=== PATIENT | female | born 1975 | race Caucasian/White ===

== ENCOUNTER 2022-04-06 10:45 | Outpatient (CLI) | payer OTHER, SELFPAY ==
[2022-04-06 11:36] LABS: Hemoglobin A1C* 6.5 % (0-5.6)
[2022-04-06 11:52] LABS: Basophils Absolute Auto 0.05 K/uL (0.00-0.30); Basophils Percent Auto 0.8 % (0.0-3.0); Eosinophils Absolute Auto 0.15 K/uL (0.00-0.50); Eosinophils Percent Auto 2.4 % (0.0-7.0); Hematocrit 39.5 % (33.0-51.0); Hemoglobin* 13.3 gm/dL (12.0-16.0); Lymphocytes Percent Auto 49.2 % (20-44); Mean Corpuscular HGB Conc 34 gm/dL (32-36); Mean Corpuscular Hemoglobin 33 pg (26-34); Mean Corpuscular Volume 98 fL (80-100); Monocytes Absolute Auto 0.35 K/UL (0.00-0.90); Monocytes Percent Auto 5.6 % (0.0-11.0); Neutrophils Absolute Auto 2.61 K/uL (1.7-7.0); Platelet Count* 245 K/uL (140-440); Red Blood Count 4.03 m/uL (4.00-5.20); Slide Review Reflex No; White Blood Count* 6.22 K/uL (4.50-11.00)
[2022-04-06 21:49] LABS: Chloride* 103 mmol/L (96-114); Sodium* 138 mmol/L (135-149)
[2022-04-06 21:50] LABS: Potassium* 3.8 mmol/L (3.6-5.1)
[2022-04-06 21:52] LABS: Alkaline Phosphatase* 51 U/L (40-150); Aspartate Amino Transferase* 27 U/L (12-35); Bilirubin Total* 1.3 mg/dL (0.1-1.5); Blood Urea Nitrogen* 21 mg/dL (5-24); Carbon Dioxide* 25 mmol/L (20-32); Estimated Glomerular Filt Rate 71 ml/min; Total Protein* 6.7 g/dL (6.0-8.3)
[2022-04-06 21:53] LABS: Alanine Aminotransferase* 39 U/L (4-35); Calcium* 9.1 mg/dL (8.4-10.6); Glucose* 132 mg/dL (60-115)
== END 2022-04-06 10:46 | disposition home or self-care (01) ==
LOC: LKVREF 10:47
PROVIDERS: PCP Family Medicine; Visit Provider Family Medicine
DX: B36.0 Pityriasis versicolor (principal); E11.9 Type 2 diabetes mellitus without complications; Z79.899 Other long term (current) drug therapy
CPT/HCPCS: 80053; 83036; 85025

== ENCOUNTER 2022-04-14 03:22 | Emergency (ER) | payer OTHER, SELFPAY ==
[2022-04-14 03:31] VITALS: BP 144/93; PULSE 79; RESP 16; TEMP 36.2; O2SAT 98
[2022-04-14 04:36] LABS: Appearance Urine Clear (Clear); Bilirubin Urine Negative (Negative); Blood Urine Negative (Negative); Color Urine Yellow (Yellow); Glucose Urine Negative (Negative); Ketones Urine Negative (Negative); Leukocyte Esterase Urine Negative (Negative); Nitrite Urine Negative (Negative); Protein Urine Negative (Negative); Specific Gravity Urine 1.015 (1.000-1.030); Urobilinogen Urine 0.2 (0.2-1.0); pH Urine 6.5 (5.0-8.5)
[2022-04-14 04:42] LABS: RBC Urine 0-2 (0-2); WBC Urine 0-2 (0-5)
[2022-04-14] MEDS: MORPHINE 4 MG/ML INJ IVP (04:56)
[2022-04-14] MEDS: KETOROLAC 30 MG/ML inj IVP (04:56)
[2022-04-14] MEDS: ONDANSETRON 2 MG/ML inj 4 MG IVP (04:56)
[2022-04-14] MEDS: 0.9 % SODIUM CHLORIDE 1000 ml 1,000 ML IV (04:59)
[2022-04-14 05:04] LABS: Basophils Absolute Auto 0.04 K/uL (0.00-0.30); Basophils Percent Auto 0.7 % (0.0-3.0); Eosinophils Absolute Auto 0.18 K/uL (0.00-0.50); Eosinophils Percent Auto 2.9 % (0.0-7.0); Hematocrit 37.8 % (33.0-51.0); Immature Granulocytes Abs Auto 0.03 K/uL (0.00-0.30); Lymphocytes Percent Auto 51.1 % (20-44); Mean Corpuscular HGB Conc 34 gm/dL (32-36); Mean Corpuscular Hemoglobin 33 pg (26-34); Mean Corpuscular Volume 96 fL (80-100); Monocytes Percent Auto 7.2 % (0.0-11.0); Neutrophils Percent Auto 37.6 % (42.0-72.0); Platelet Count* 286 K/uL (140-440); Red Blood Count 3.93 m/uL (4.00-5.20); White Blood Count* 6.12 K/uL (4.50-11.00)
[2022-04-14 05:05] LABS: Slide Review Reflex No
[2022-04-14 05:12] LABS: Albumin* 4.1 g/dL (3.3-5.0)
[2022-04-14 05:13] LABS: Chloride* 103 mmol/L (96-114); Potassium* 3.6 mmol/L (3.6-5.1); Sodium* 138 mmol/L (135-149)
[2022-04-14 05:15] LABS: Alkaline Phosphatase* 66 U/L (40-150); Aspartate Amino Transferase* 30 U/L (12-35); Bilirubin Direct* 0.2 mg/dL (0.0-0.5); Bilirubin Total* 0.4 mg/dL (0.1-1.5); Total Protein* 6.5 g/dL (6.0-8.3)
[2022-04-14 05:15] LABS: HCG Qualitative* Negative (Negative)
[2022-04-14 05:16] LABS: Alanine Aminotransferase* 35 U/L (4-35); Lipase* 212 U/L (23-300)
[2022-04-14 05:16] LABS: Creatinine* 0.9 mg/dL (0.5-1.5); Estimated Glomerular Filt Rate 81 ml/min
[2022-04-14 05:17] LABS: Blood Urea Nitrogen* 14 mg/dL (5-24); Calcium* 8.7 mg/dL (8.4-10.6); Carbon Dioxide* 26 mmol/L (20-32); Glucose* 124 mg/dL (60-115)
[2022-04-14 05:20] LABS: C Reactive Protein* < 0.5 mg/dL (0.5-1.0)
[2022-04-14 05:33] LABS: SARS PCR* Negative SARS-CoV-2 (Negative)
[2022-04-14 07:04] VITALS: BP 134/92; PULSE 85; RESP 16; O2SAT 98
--- NOTE | 2022-04-14 07:06 | ED.ABDPAIN ---
HPI - Abdominal Pain General Chief Complaint: Abdominal Pain Stated Complaint: Right Side Abdominal Pain Time Seen by Provider: 04/14/22 04:06 History of Present Illness HPI narrative: 46-year-old woman presenting to the emergency department with complaint of a deep pain in her right upper abdomen, aching into her back. This began yesterday evening after a meal at [employer] of a burger and fries. She has not had any fever. She is nauseated. I do not believe she has been vomiting. No diarrhea noted. She thinks that this might be her gallbladder. No fever. No trauma. Pain is intense and is just not settling down. She recalls remarking to friend just the other day that she has been pain-free for about a year she thought. No cough cold symptoms, shortness of breath, chest pain. Further conversation and review of records shows that had an abdominal ultrasound showed fatty liver and a mildly prominent bile duct in October of 2020. Follow-up HIDA scan was apparently was normal the following November. In 2016 abdominal ultrasound did show some biliary sludge. Related Data Home Medications Medication Instructions Recorded Confirmed adalimumab 40 mg/0.4 mL 40 mg subcut QWEEK 04/03/22 04/03/22 subcutaneous pen kit aripiprazole 5 mg tablet 5 mg PO DAILY 04/03/22 04/03/22 bupropion HCl 150 mg tablet,12 hr mg PO BID 04/03/22 04/03/22 sustained-release diclofenac sodium 1 % topical gel 1 topical PRN 04/03/22 04/03/22 methylphenidate HCl 10 mg tablet 15 mg PO .as needed PRN 04/03/22 04/03/22 methylphenidate HCl 54 mg 54 mg PO DAILY 04/03/22 04/03/22 tablet,extended release 24 hr metoprolol succinate 50 mg mg PO DAILY 04/03/22 04/03/22 tablet,extended release 24 hr spironolactone 50 mg tablet 50 mg PO BID 04/03/22 04/03/22 venlafaxine 150 mg 150 mg PO DAILY 04/03/22 04/03/22 capsule,extended release 24 hr blood sugar diagnostic (Accu-Chek #10 ea 04/06/22 04/06/22 Guide test strips) diclofenac sodium 50 mg mg PO DAILY 04/06/22 04/06/22 tablet,delayed release folic acid 1 mg tablet 1 mg PO DAILY 04/06/22 04/06/22 methotrexate sodium 2.5 mg tablet 15 mg PO .1 x week 04/06/22 04/06/22 prednisone 10 mg tablet 10 mg PO QDAY 04/06/22 04/06/22 ruxolitinib 1.5 % topical cream 1.5 applic topical DAILY PRN 04/06/22 04/03/22 Previous Rx's Medication Instructions Recorded metformin 500 mg tablet,extended 1,000 mg PO DAILY #180 tabs 04/06/22 release 24 hr nystatin 100,000 unit/gram topical 1 applic topical BID #60 grams 04/06/22 powder terbinafine HCl 250 mg tablet 250 mg PO QDAY 2 weeks #14 tabs 04/06/22 Allergies Allergy/AdvReac Type Severity Reaction Status Date / Time hydrocodone AdvReac Mild Itching Verified 04/06/22 10:27 Lavender oil Allergy Unknown Uncoded 04/06/22 10:27 Review of Systems Status of ROS Reports: 10 or more systems reviewed and unremarkable except as noted in History and below [facility] Medical History Encounter for annual physical exam High risk medication use History of gestational diabetes mellitus (GDM) Surgical History Status post dilation and curettage Status post endometrial ablation (09/29/14) Status post hemorrhoidectomy (2013) Family History Other Breast cancer Social History Smoking Status: Never smoker How often do you have six or more drinks on one occasion: Less than monthly AUDIT-C Alcohol total score: 1 Non-prescribed substance use: denies use service: No Exam Narrative: Exam Narrative: And pleasant. Clearly uncomfortable. Right hand, both hands held that right upper abdomen. Cranial nerves 2-12 look to be intact Breathing easily. Lungs are clear. Cardiovascular with regular rate and rhythm no murmurs rubs or gallops are appreciated Abdomen overweight with normoactive bowel sounds soft and moderately tender to palpation in the right upper quadrant underneath the rib margin. No pain to percussion of the flanks. No peritoneal signs. Moving all extremities without difficulty. Well perfused peripherally. A little dependent edema in the lower legs. Const: Vital Signs, click to edit/add: Vital Signs - 24 hr 04/14/22 03:31 04/14/22 07:04 Temperature 97.2 F L Pulse Rate [Left P ulse Oximeter] 79 85 Respiratory Rate 16 16 Blood Pressure [Ri ght Upper Arm] 144/93 H 134/92 H Pulse Oximetry 98 98 Oxygen Delivery Me thod Room Air Room Air Documenting provider has reviewed patient's vital signs: yes Course Course Hospital Course: She would appreciate some relief of this pain and nausea. Appears that Ms. Sr is anticipating admission at this point. Reevaluation(s) Reevaluation #1: A little sleepy from medications. The pain is resolved. Resting comfortably. Vital Signs Vital signs: Initial Vital Signs Temperature 97.2 F L 04/14/22 03:31 Temperature Source Temporal Artery Scan 04/14/22 03:31 Pulse Rate 79 04/14/22 03:31 Pulse Rhythm 04/14/22 03:31 Respiratory Rate 16 04/14/22 03:31 Blood Pressure 144/93 H 04/14/22 03:31 Blood Pressure Mean 110 04/14/22 03:31 Pulse Oximetry 98 04/14/22 03:31 Oxygen Delivery Method 04/14/22 03:31 Vital Signs Temperature 97.2 F L 04/14/22 03:31 Pulse Rate 79 04/14/22 03:31 Respiratory Rate 16 04/14/22 03:31 Blood Pressure 144/93 H 04/14/22 03:31 Pulse Oximetry 98 04/14/22 03:31 Oxygen Delivery Method 04/14/22 03:31 Temperature 97.2 F L 04/14/22 03:31 Pulse Rate 85 04/14/22 07:04 Respiratory Rate 16 04/14/22 07:04 Blood Pressure 134/92 H 04/14/22 07:04 Pulse Oximetry 98 04/14/22 07:04 Oxygen Delivery Method 04/14/22 07:04 MDM - Abdominal Pain MDM Narrative Medical decision making narrative: I discussed treating pain. It appears that she would like sooner than later relief. Given morphine ketorolac and Zofran as well as fluids. Labs collected as well. White count and chemistries including liver panel are relatively unremarkable. Urinalysis clear. Overall pain has been controlled. Would appear that this could be managed outpatient. I do think this is still biliary colic in spite of rather unremarkable ultrasounds and normal HIDA scan. I do not think that further imaging available here tonight would be further useful. I think would benefit from having some opiate level pain medications available as well as a consultation with General surgery which apparently has not yet happened per her report. Will be resting here for medications to fade in sedative affect as well as seeing whether not there be recurrence in the short term her pain. Medical Records Attestation: I reviewed the patient's medical records. Lab Data Attestation: I reviewed the patient's lab results. Labs: Lab Results 04/14/22 04/14/22 04/14/22 Range/Units 04:20 04:50 04:50 WBC 6.12 (4.50-11.00) K/uL RBC 3.93 L (4.00-5.20) m/uL Hgb 13.0 (12.0-16.0) gm/dL Hct 37.8 (33.0-51.0) % MCV 96 (80-100) fL MCH 33 (26-34) pg MCHC 34 (32-36) gm/dL RDW Coeff of [place] 13.0 (11.5-15.5) % Plt Count 286 (140-440) K/uL Neut % (Auto) 37.6 L (42.0-72.0) % Lymph % (Auto) 51.1 H (20-44) % [place] % (Auto) 7.2 (0.0-11.0) % Eos % (Auto) 2.9 (0.0-7.0) % Baso % (Auto) 0.7 (0.0-3.0) % Neut # (Auto) 2.30 (1.7-7.0) K/uL Lymph # (Auto) 3.10 H (0.90-2.90) K/uL [place] # (Auto) 0.40 (0.00-0.90) K/UL Eos # (Auto) 0.18 (0.00-0.50) K/uL Baso # (Auto) 0.04 (0.00-0.30) K/uL Abs Immat Gran (auto) 0.03 (0.00-0.30) K/uL Sodium (135-149) mmol/L Potassium (3.6-5.1) mmol/L Chloride (96-114) mmol/L Carbon Dioxide (20-32) mmol/L BUN (5-24) mg/dL Creatinine (0.5-1.5) mg/dL Estimated GFR ml/min Glucose (60-115) mg/dL Calcium (8.4-10.6) mg/dL Total Bilirubin (0.1-1.5) mg/dL Direct Bilirubin (0.0-0.5) mg/dL AST (12-35) U/L ALT (4-35) U/L Alkaline Phosphatase (40-150) U/L C-Reactive Protein (0.5-1.0) mg/dL Total Protein (6.0-8.3) g/dL Albumin (3.3-5.0) g/dL Lipase (23-300) U/L HCG, Qual Negative (Negative) Urine Color Yellow (Yellow) Urine Appearance Clear (Clear) Urine pH 6.5 (5.0-8.5) Ur Specific [place] 1.015 (1.000-1.030) Urine Protein Negative (Negative) Urine Glucose (UA) Negative (Negative) Urine Ketones Negative (Negative) Urine Blood Negative (Negative) Urine Nitrite Negative (Negative) Urine Bilirubin Negative (Negative) Urine Urobilinogen 0.2 (0.2-1.0) Ur Leukocyte Esterase Negative (Negative) Urine RBC 0-2 (0-2) Urine WBC 0-2 (0-5) Ur Squamous Epith Cells None (None-Few) Urine Bacteria None (None) SARS-CoV-2 (PCR) (Negative) 04/14/22 04/14/22 04/14/22 Range/Units 04:50 04:50 04:53 WBC (4.50-11.00) K/uL RBC (4.00-5.20) m/uL Hgb (12.0-16.0) gm/dL Hct (33.0-51.0) % MCV (80-100) fL MCH (26-34) pg MCHC (32-36) gm/dL RDW Coeff of Claudette (11.5-15.5) % Plt Count (140-440) K/uL Neut % (Auto) (42.0-72.0) % Lymph % (Auto) (20-44) % [place] % (Auto) (0.0-11.0) % Eos % (Auto) (0.0-7.0) % Baso % (Auto) (0.0-3.0) % Neut # (Auto) (1.7-7.0) K/uL Lymph # (Auto) (0.90-2.90) K/uL [place] # (Auto) (0.00-0.90) K/UL Eos # (Auto) (0.00-0.50) K/uL Baso # (Auto) (0.00-0.30) K/uL Abs Immat Gran (auto) (0.00-0.30) K/uL Sodium 138 (135-149) mmol/L Potassium 3.6 (3.6-5.1) mmol/L Chloride 103 (96-114) mmol/L Carbon Dioxide 26 (20-32) mmol/L BUN 14 (5-24) mg/dL Creatinine 0.9 (0.5-1.5) mg/dL Estimated GFR 81 ml/min Glucose 124 H (60-115) mg/dL Calcium 8.7 (8.4-10.6) mg/dL Total Bilirubin 0.4 (0.1-1.5) mg/dL Direct Bilirubin 0.2 (0.0-0.5) mg/dL AST 30 (12-35) U/L ALT 35 (4-35) U/L Alkaline Phosphatase 66 (40-150) U/L C-Reactive Protein < 0.5 L (0.5-1.0) mg/dL Total Protein 6.5 (6.0-8.3) g/dL Albumin 4.1 (3.3-5.0) g/dL Lipase 212 (23-300) U/L HCG, Qual (Negative) Urine Color (Yellow) Urine Appearance (Clear) Urine pH (5.0-8.5) Ur Specific [place] (1.000-1.030) Urine Protein (Negative) Urine Glucose (UA) (Negative) Urine Ketones (Negative) Urine Blood (Negative) Urine Nitrite (Negative) Urine Bilirubin (Negative) Urine Urobilinogen (0.2-1.0) Ur Leukocyte Esterase (Negative) Urine RBC (0-2) Urine WBC (0-5) Ur Squamous Epith Cells (None-Few) Urine Bacteria (None) SARS-CoV-2 (PCR) Negative SARS-CoV-2 (Negative) Discharge Plan Discharge Clinical Impression: Biliary colic Patient Disposition: Home, Self-Care Condition: Improved Additional Instructions: Stay well hydrated. Avoid greasy/fatty foods is they might trigger this discomfort/pain. Please call to General surgery to schedule follow-up appointment/consultation. Return/be seen for marked increasing uncontrolled pain, repeated vomiting, associated fever, pain not resolving a couple of hours after taking your pain medications. Regino and Michael from [employer]. Prescriptions: No Action aripiprazole 5 mg tablet 5 mg PO DAILY methylphenidate HCl 54 mg tablet extended release 24hr 54 mg PO DAILY venlafaxine 150 mg capsule,extended release 24hr 150 mg PO DAILY methylphenidate HCl 10 mg tablet 15 mg PO .as needed PRN metoprolol succinate 50 mg tablet extended release 24 hr PO DAILY spironolactone 50 mg tablet 50 mg PO BID adalimumab 40 mg/0.4 mL pen injector kit 40 mg subcut QWEEK bupropion HCl 150 mg tablet sustained-release 12 hr PO BID diclofenac sodium 1 % gel 1 topical PRN diclofenac sodium 50 mg tablet,delayed release (DR/EC) PO DAILY ruxolitinib 1.5 % cream 1.5 applic topical DAILY PRN prednisone 10 mg tablet 10 mg PO QDAY methotrexate sodium 2.5 mg tablet 15 mg PO .1 x week folic acid 1 mg tablet 1 mg PO DAILY (DME) Accu-Chek Guide test strips Strip See Rx Instructions .ROUTE .MEDSUPPLY Qty: 10 Label Comments: TEST FOUR TIMES DAILY Rx Instructions: As directed nystatin 100,000 unit/gram powder 1 applic topical BID Qty: 60 8RF terbinafine HCl 250 mg tablet 250 mg PO QDAY 14 Days Qty: 14 1RF metformin 500 mg tablet extended release 24 hr 1,000 mg PO DAILY Qty: 180 1RF Follow Up/Referrals: Luis Ambriz MD [Primary Care Provider] - Stand Alone Forms: [facility] Info Instructions
--- NOTE | 2022-04-14 07:07 | ED.NURSE ---
report received from ko. dc teaching complete, questions answered. pt recieved instymeds for ana and fred pt waiting for to pick her up. SL dc'd intact.
== END 2022-04-14 07:21 | disposition home or self-care (01) ==
PROVIDERS: Emergency Provider Family Medicine; PCP Family Medicine
DX: K80.51 Calculus of bile duct without cholangitis or cholecystitis with obstruction (principal)
CPT/HCPCS: 36415; 80048; 80076; 81001; 83690; 84703; 85025; 86140; 87635; 96374; 96375; 99284; J1885; J2270; J2405; J7030

== ENCOUNTER 2022-05-07 06:10 | Emergency (ER) | payer OTHER, SELFPAY ==
[2022-05-07 06:24] VITALS: BP 144/79; PULSE 77; RESP 20; TEMP 36.5; O2SAT 98; BMI 41.3
--- NOTE | 2022-05-07 07:03 | ED.ABDPAIN ---
HPI - Abdominal Pain General Chief Complaint: Abdominal Pain Stated Complaint: Bad gallbladder pain Time Seen by Provider: 05/07/22 06:56 History of Present Illness HPI narrative: 46-year-old woman history of biliary colic presents with 2 hours of right upper quadrant abdominal pain. She had been recommended for general surgery follow-up but she had missed the follow-up phone call while driving. She did have chili last night. Took 1 tab of [place] which has not touched the pain. No fever. Nausea but no vomiting. Related Data Home Medications Medication Instructions Recorded Confirmed adalimumab 40 mg/0.4 mL 40 mg subcut QWEEK 04/03/22 05/07/22 subcutaneous pen kit aripiprazole 5 mg tablet 5 mg PO DAILY 04/03/22 05/07/22 bupropion HCl 150 mg tablet,12 hr 150 mg PO BID 04/03/22 05/07/22 sustained-release diclofenac sodium 1 % topical gel 1 topical PRN 04/03/22 04/03/22 methylphenidate HCl 10 mg tablet 15 mg PO .as needed PRN 04/03/22 04/03/22 methylphenidate HCl 54 mg 54 mg PO DAILY 04/03/22 04/03/22 tablet,extended release 24 hr metoprolol succinate 50 mg 50 mg PO DAILY 04/03/22 05/07/22 tablet,extended release 24 hr spironolactone 50 mg tablet 50 mg PO BID 04/03/22 04/03/22 venlafaxine 150 mg 150 mg PO DAILY 04/03/22 04/03/22 capsule,extended release 24 hr blood sugar diagnostic (Accu-Chek #10 ea 04/06/22 04/06/22 Guide test strips) diclofenac sodium 50 mg 50 mg PO DAILY 04/06/22 05/07/22 tablet,delayed release folic acid 1 mg tablet 1 mg PO DAILY 04/06/22 05/07/22 methotrexate sodium 2.5 mg tablet 15 mg PO .1 x week 04/06/22 05/07/22 prednisone 10 mg tablet 10 mg PO QDAY 04/06/22 04/06/22 ruxolitinib 1.5 % topical cream 1.5 applic topical DAILY PRN 04/06/22 04/03/22 Previous Rx's Medication Instructions Recorded metformin 500 mg tablet,extended 1,000 mg PO DAILY #180 tabs 04/06/22 release 24 hr nystatin 100,000 unit/gram topical 1 applic topical BID #60 grams 04/06/22 powder terbinafine HCl 250 mg tablet 250 mg PO QDAY 2 weeks #14 tabs 04/06/22 Allergies Allergy/AdvReac Type Severity Reaction Status Date / Time hydrocodone AdvReac Mild Itching Verified 04/06/22 10:27 Lavender oil Allergy Unknown Uncoded 04/06/22 10:27 Review of Systems Status of ROS Reports: 6 or more systems reviewed and unremarkable except as noted in History and below [facility] Medical History Encounter for annual physical exam High risk medication use History of gestational diabetes mellitus (GDM) Surgical History Status post dilation and curettage Status post endometrial ablation (09/29/14) Status post hemorrhoidectomy (2013) Family History Other Breast cancer Social History Smoking Status: Never smoker How often do you have six or more drinks on one occasion: Less than monthly AUDIT-C Alcohol total score: 1 Non-prescribed substance use: denies use service: No Exam Narrative: Exam Narrative: Is pleasant. Purplish dyed hair. Clearly uncomfortable. Slightly labored breathing. Skin is warm and dry. Lungs appear to be clear. CV with regular rate Abdomen overweight, soft and quite tender in the right upper quadrant. Extremities are well perfused without edema. Const: Vital Signs, click to edit/add: Vital Signs - 24 hr 05/07/22 06:24 Temperature 97.7 F Pulse Rate [Pulse Oximeter] 77 Respiratory Rate 20 Blood Pressure [Ri ght Upper Arm] 144/79 H Pulse Oximetry 98 Oxygen Delivery Me thod Room Air Documenting provider has reviewed patient's vital signs: yes Course Course Hospital Course: I discussed options of IV and laboratory evaluation and more, but in process of shared decision making we decided to try oral pain med trial. Does not have a fever. Given 2 tabs of 5/325 Percocet and Zofran. Reevaluation(s) Reevaluation #1: Markedly improved. Only a small amount of discomfort remains. Feels she can go home and follow-up outpatient. Time: 07:55 Vital Signs Vital signs: Initial Vital Signs Temperature 97.7 F 05/07/22 06:24 Temperature Source Temporal Artery Scan 05/07/22 06:24 Pulse Rate 77 05/07/22 06:24 Respiratory Rate 20 05/07/22 06:24 Blood Pressure 144/79 H 05/07/22 06:24 Blood Pressure Mean 100 05/07/22 06:24 Blood Pressure Position Sitting 05/07/22 06:24 Pulse Oximetry 98 05/07/22 06:24 Oxygen Delivery Method 05/07/22 06:24 Vital Signs Temperature 97.7 F 05/07/22 06:24 Pulse Rate 77 05/07/22 06:24 Respiratory Rate 20 05/07/22 06:24 Blood Pressure 144/79 H 05/07/22 06:24 Pulse Oximetry 98 05/07/22 06:24 Oxygen Delivery Method 05/07/22 06:24 Temperature 97.7 F 05/07/22 06:24 Pulse Rate 77 05/07/22 06:24 Respiratory Rate 20 05/07/22 06:24 Blood Pressure 144/79 H 05/07/22 06:24 Pulse Oximetry 98 05/07/22 06:24 Oxygen Delivery Method 05/07/22 06:24 Discharge Plan Discharge Clinical Impression: Abdominal pain, Biliary colic Patient Disposition: Home w/ Parent or Adult Condition: Improved Additional Instructions: Yes. Please follow-up with General surgery. I am happy you are feeling better now. Stay well-hydrated. Please avoid those greasy triggering foods. Return if pain escalating and you can not get it under control, repeated vomiting, associated fever. Prescriptions: No Action aripiprazole 5 mg tablet 5 mg PO DAILY methylphenidate HCl 54 mg tablet extended release 24hr 54 mg PO DAILY venlafaxine 150 mg capsule,extended release 24hr 150 mg PO DAILY methylphenidate HCl 10 mg tablet 15 mg PO .as needed PRN metoprolol succinate 50 mg tablet extended release 24 hr 50 mg PO DAILY spironolactone 50 mg tablet 50 mg PO BID adalimumab 40 mg/0.4 mL pen injector kit 40 mg subcut QWEEK bupropion HCl 150 mg tablet sustained-release 12 hr 150 mg PO BID diclofenac sodium 1 % gel 1 topical PRN diclofenac sodium 50 mg tablet,delayed release (DR/EC) 50 mg PO DAILY ruxolitinib 1.5 % cream 1.5 applic topical DAILY PRN prednisone 10 mg tablet 10 mg PO QDAY methotrexate sodium 2.5 mg tablet 15 mg PO .1 x week folic acid 1 mg tablet 1 mg PO DAILY (DME) Accu-Chek Guide test strips Strip See Rx Instructions .ROUTE .MEDSUPPLY Qty: 10 Label Comments: TEST FOUR TIMES DAILY Rx Instructions: As directed nystatin 100,000 unit/gram powder 1 applic topical BID Qty: 60 8RF terbinafine HCl 250 mg tablet 250 mg PO QDAY 14 Days Qty: 14 1RF metformin 500 mg tablet extended release 24 hr 1,000 mg PO DAILY Qty: 180 1RF Follow Up/Referrals: Luis Ambriz MD [Primary Care Provider] - Stand Alone [facility]
[2022-05-07] MEDS: OxyCODONE/APAP 5-325 TABLET 2 TAB PO (07:19)
[2022-05-07] MEDS: ONDANSETRON ODT 4 MG TAB PO (07:19)
--- NOTE | 2022-05-07 07:25 | ED.NURSE ---
report received, care taken over. pt sitting up on edge of bed. c/o RUQ pain 02/12.
--- NOTE | 2022-05-07 08:16 | ED.NURSE ---
dc teaching complete, pt denies pain or nausea. waiting for to pick her up.
== END 2022-05-07 08:32 | disposition home or self-care (01) ==
PROVIDERS: Emergency Provider Family Medicine; PCP Family Medicine
DX: K80.50 Calculus of bile duct without cholangitis or cholecystitis without obstruction (principal)
CPT/HCPCS: 99283; A9270

== ENCOUNTER 2022-06-06 10:42 | Outpatient (CLI) | payer OTHER, SELFPAY | END 2022-06-06 10:43 | disposition home or self-care (01) | LOC: OP CLINIC 10:43 | PROVIDERS: PCP Family Medicine; Visit Provider Surgery | DX: R10.13 Epigastric pain (principal); K31.89 Other diseases of stomach and duodenum | CPT/HCPCS: 43239; 88305; J2250; J3010 ==

== ENCOUNTER 2022-06-28 20:36 | Emergency (ER) | payer OTHER, SELFPAY ==
[2022-06-28 21:02] VITALS: BP 145/82; PULSE 130; RESP 18; TEMP 36.3; O2SAT 99; BMI 43.4
--- NOTE | 2022-06-28 21:17 | ED.GENADULT ---
HPI - General Adult General Chief complaint: Unspecified Complaint, Adult Stated complaint: Cellulitis in Left Ear Time Seen by Provider: 06/28/22 20:46 History of Present Illness HPI narrative: This patient comes in with pain in swelling with redness in the left external ear. She has had symptoms like this in the past that was treated successfully for a cellulitis. She does have some eczema that bothers her and she has been picking at this area a and understands that this may be putting her at risk for these symptoms. She does not report any fevers. She is concerned that her roommate has MRSA. She has not this kind of infection herself. She states that her doctor thinks she should have a sulfa drug to treat this because of that proximity of relationship with her roommate. Related Data Home Medications Medication Instructions Recorded Confirmed adalimumab 40 mg/0.4 mL 40 mg subcut QWEEK 04/03/22 05/26/22 subcutaneous pen kit aripiprazole 5 mg tablet 5 mg PO DAILY 04/03/22 05/26/22 bupropion HCl 150 mg tablet,12 hr 150 mg PO BID 04/03/22 05/26/22 sustained-release diclofenac sodium 1 % topical gel 1 topical PRN 04/03/22 05/26/22 methylphenidate HCl 10 mg tablet 15 mg PO .as needed PRN 04/03/22 05/26/22 methylphenidate HCl 54 mg 54 mg PO DAILY 04/03/22 05/26/22 tablet,extended release 24 hr metoprolol succinate 50 mg 50 mg PO DAILY 04/03/22 05/26/22 tablet,extended release 24 hr spironolactone 50 mg tablet 50 mg PO BID 04/03/22 05/26/22 venlafaxine 150 mg 150 mg PO DAILY 04/03/22 05/26/22 capsule,extended release 24 hr blood sugar diagnostic (Accu-Chek #10 ea 04/06/22 05/26/22 Guide test strips) diclofenac sodium 50 mg 50 mg PO DAILY 04/06/22 05/26/22 tablet,delayed release folic acid 1 mg tablet 1 mg PO DAILY 04/06/22 05/26/22 methotrexate sodium 2.5 mg tablet 15 mg PO .1 x week 04/06/22 05/26/22 ruxolitinib 1.5 % topical cream 1.5 applic topical DAILY PRN 04/06/22 05/26/22 Previous Rx's Medication Instructions Recorded metformin 500 mg tablet,extended 1,000 mg PO DAILY #180 tabs 04/06/22 release 24 hr nystatin 100,000 unit/gram topical 1 applic topical BID #60 grams 04/06/22 powder terbinafine HCl 250 mg tablet 250 mg PO QDAY 2 weeks #14 tabs 04/06/22 Allergies Allergy/AdvReac Type Severity Reaction Status Date / Time hydrocodone AdvReac Mild Itching Verified 06/28/22 21:09 Lavender oil Allergy Unknown Uncoded 05/26/22 09:44 Review of Systems Status of ROS: Reports: 10 or more systems reviewed and unremarkable except as noted in History and below Narrative: Constitutional: No fevers, no weight gain or loss. Eyes: No discharge. No vision changes. HENT: No congestion, no sore throat. Pain with redness and mild swelling in the left external ear. Cardiovascular: No chest pain, no palpitations. Respiratory: No shortness of breath, no wheezes, no cough. Gastrointestinal: No abdominal pain, no vomiting, no diarrhea. Genitourinary: No dysuria, no hematuria. Musculoskeletal: Normal range of motion. Skin: No rashes, no pruritis. Neurological: No dizziness, weakness, sensory change, speech change. Endo/Heme/Allergies: No bruising or bleeding. No polydipsia. Pysch: no suicidality, no anxiety, no insomnia. All other systems reviewed and are negative. [facility] Medical History Encounter for annual physical exam High risk medication use History of gestational diabetes mellitus (GDM) Surgical History Status post dilation and curettage Status post endometrial ablation (09/29/14) Status post hemorrhoidectomy (2013) Family History Other Breast cancer Social History Smoking Status: Never smoker How often do you have six or more drinks on one occasion: Less than monthly AUDIT-C Alcohol total score: 1 Non-prescribed substance use: denies use service: No Exam Narrative: Exam Narrative: Constitutional: Well-developed, well-nourished, no acute distress. HEENT: Normocephalic, atraumatic. Tympanic membranes appear normal bilaterally. The left external ear is tender to touch and shows some increased warmth and erythema suggestive of infection. There is no sign of abscess or drainage. Neck: Normal range of motion. Nontender. Supple. Heart: Regular. No murmurs. Normal rate. Intact distal pulses. Lungs: Clear to auscultation. No chest discomfort. No wheezes, rhonchi, or rales. Abdomen: Normal bowel sounds. Nontender. No rebound tenderness. Genitalia: Deferred. Back: No midline tenderness. Normal range of motion. Extremities: Normal range of motion. No injury. Skin: Intact. No rash. Warm. No erythema or pallor. Neurologic: No altered sensation. No weakness. Alert and oriented. Psychiatric: No suicidality. No anxiety or depression. No insomnia. Nursing notes and vitals signs are reviewed. Const: Vital Signs, click to edit/add: Vital Signs - 24 hr 06/28/22 21:02 Temperature 97.3 F L Pulse Rate [Pulse Oximeter] 130 H Respiratory Rate 18 Blood Pressure [Ri ght Forearm] 145/82 H Pulse Oximetry 99 Oxygen Delivery Me thod Room Air Course Vital Signs Vital signs: Initial Vital Signs Temperature 97.3 F L 06/28/22 21:02 Temperature Source Temporal Artery Scan 06/28/22 21:02 Pulse Rate 130 H 06/28/22 21:02 Respiratory Rate 18 06/28/22 21:02 Blood Pressure 145/82 H 06/28/22 21:02 Blood Pressure Mean 103 06/28/22 21:02 Blood Pressure Position Sitting 06/28/22 21:02 Pulse Oximetry 99 06/28/22 21:02 Oxygen Delivery Method 06/28/22 21:02 Vital Signs Temperature 97.3 F L 06/28/22 21:02 Pulse Rate 130 H 06/28/22 21:02 Respiratory Rate 18 06/28/22 21:02 Blood Pressure 145/82 H 06/28/22 21:02 Pulse Oximetry 99 06/28/22 21:02 Oxygen Delivery Method 06/28/22 21:02 Temperature 97.3 F L 06/28/22 21:02 Pulse Rate 130 H 06/28/22 21:02 Respiratory Rate 18 06/28/22 21:02 Blood Pressure 145/82 H 06/28/22 21:02 Pulse Oximetry 99 06/28/22 21:02 Oxygen Delivery Method 06/28/22 21:02 Medical Decision Making MDM Narrative Medical decision making narrative: This patient has an area of eczema that she has been picking at involving the left ear and now there is some increased redness that may be is result of a cellulitis. The patient did receive a prescription for Septra from the [facility]. She is advised to follow-up with her primary physician. Discharge Plan Discharge Clinical Impression: Cellulitis Patient Disposition: Home, Self-Care Condition: Unchanged Additional Instructions: Take medication as prescribed. Follow up with MD or return if worsening. Prescriptions: No Action aripiprazole 5 mg tablet 5 mg PO DAILY methylphenidate HCl 54 mg tablet extended release 24hr 54 mg PO DAILY venlafaxine 150 mg capsule,extended release 24hr 150 mg PO DAILY methylphenidate HCl 10 mg tablet 15 mg PO .as needed PRN metoprolol succinate 50 mg tablet extended release 24 hr 50 mg PO DAILY spironolactone 50 mg tablet 50 mg PO BID adalimumab 40 mg/0.4 mL pen injector kit 40 mg subcut QWEEK bupropion HCl 150 mg tablet sustained-release 12 hr 150 mg PO BID diclofenac sodium 1 % gel 1 topical PRN diclofenac sodium 50 mg tablet,delayed release (DR/EC) 50 mg PO DAILY ruxolitinib 1.5 % cream 1.5 applic topical DAILY PRN methotrexate sodium 2.5 mg tablet 15 mg PO .1 x week folic acid 1 mg tablet 1 mg PO DAILY (DME) Accu-Chek Guide test strips Strip See Rx Instructions .ROUTE .MEDSUPPLY Qty: 10 Label Comments: TEST FOUR TIMES DAILY Rx Instructions: As directed nystatin 100,000 unit/gram powder 1 applic topical BID Qty: 60 8RF terbinafine HCl 250 mg tablet 250 mg PO QDAY 14 Days Qty: 14 1RF metformin 500 mg tablet extended release 24 hr 1,000 mg PO DAILY Qty: 180 1RF Follow Up/Referrals: Luis Ambriz MD [Primary Care Provider] - Stand Alone Forms: [facility] Info Instructions
== END 2022-06-28 21:32 | disposition home or self-care (01) ==
PROVIDERS: Emergency Provider Emergency Medicine Emergency Medical Services; PCP Family Medicine
DX: L03.211 Cellulitis of face (principal)
CPT/HCPCS: 99282; 99284

== ENCOUNTER 2022-06-30 11:04 | Inpatient (IN) | payer OTHER, SELFPAY ==
[2022-06-30 11:08] VITALS: PULSE 84; RESP 16; TEMP 35.9; O2SAT 99; BMI 43.6
[2022-06-30 12:26] VITALS: BP 137/80; PULSE 81; RESP 18; O2SAT 97
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
--- OUTSIDE RECORDS SUMMARY | 2022-06-30 12:47 | XMS_ITS | Encounter Summary ---
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 traveled to part of her face. Roommate has hx of MRSA and she is concerned about if she has that too. ) HISTORY OF PRESENT ILLNESS Amelia Sr is 46-year-old female patient with history of hidradenitis suppurativa on Humira, uveitison methotrexate, and eczema who presents with worsening right ear swelling, pain, and redness. She was seen in [facility] care yesterday for right ear swelling and itchiness, worked up for cellulitis and e xternal ear infection, and discharged home with bactrim and cyclosporin ear drops. Unfortunately, since yesterday, the swelling and redness spread towards the right cheek, behind the right ear, and down the right neck. She reports congestion and pressure of the right head, right-sided sore throat, andmuffled hearing from the right ear. She has taken 3 doses of Bactrim so far. Of note, she has a roommate who has history of chronic MRSA infections and hospitalizations. Denies ear drainage, fever, chills, headache, difficulty chewing or talking, inability to open jaw, shortness of breath, exacerbating factors. 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 HENT: Positive for congestion, ear pain (right), hearing loss (muffled from right ear) and sore throat (right). Negative for mouth sores. Eyes: Negative for pain, noy-orbital edema and visual disturbance. Respiratory: Negative for shortness of breath. Cardiovascular: Negative for chest pain. Gastrointestinal: Negative for abdominal pain, nausea and vomiting. Musculoskeletal: Positive for neck pain (right). Skin: Negative for rash and wound. Neurological: Negative for dizziness, speech difficulty and light-headedness. Psychiatric/Behavioral: Negative for confusion. OBJECTIVE Initial Vitals [05/13/22 1634] Temperature Pulse Rate Heart Rate Resp Rate Blood Pressure SpO2 36 ??C 81 -- 18 135/86 99 % Pain Score 0 - No pain PHYSICAL EXAMINATION Constitutional: Nursing note and vitals reviewed. Vital signs are normal. She appears not lethargic.She does not appear ill. No distress. HENT: Head: Normocephalic. Tenderness (anterior to right ear) present. No signs of injury. There is normal jaw occlusion. Jaw: There is tenderness (right-sided posterior jaw) over the right jaw. Right Ear: Tympanic membrane, external ear and ear canal normal. No lacerations. There is swelling and tenderness. No foreign bodies. Mouth/Throat: Uvula is midline and oropharynx is clear and moist. Mucous membranes are moist. No tonsillar exudate. Dental: Good dentition and good dentition. Eyes: Conjunctivae and EOM are normal. Pupils are equal, round, and reactive to light. Neck: Neck supple. Neck adenopathy present. Pulmonary/Chest: Effort normal and breath sounds normal. No respiratory distress. Musculoskeletal: Cervical back: Normal range of motion and neck supple. Muscular tenderness (over right sternocleidomastoid) present. Lymphadenopathy: She has cervical adenopathy. Neurological: Alert and oriented to person, place, and time. She is not disoriented. Skin: She is not diaphoretic. Recent Results (from the past 24 hour(s)) Lactate, baseline Collection Time: 05/13/22 5:38 PM Result Value Lactate, P 1.4 CBC with Differential, Blood Collection Time: 05/13/22 5:38 PM Result Value Hemoglobin 12.7 Hematocrit 37.7 Erythrocytes 3.82 (L) MCV 98.7 (H) RBC Distrib Width 12.4 Platelet Count 296 Leukocytes 6.6 Neutrophils 3.15 Lymphocytes 2.75 Monocytes 0.57 Eosinophils 0.12 Basophils 0.04 Basic Metabolic Panel Collection Time: 05/13/22 5:38 PM Result Value Potassium, P 4.3 Sodium, P 138 Chloride, P 101 Bicarbonate, P 26 Anion Gap, P 11 BUN (Blood Urea Nitrogen), P 14 Creatinine 1.09 (H) Estimated GFR (eGFR) 64 Calcium, Total, P 9.6 Glucose, P 123 05/13/22 CT Neck Soft Tissue with IV Contrast IMPRESSION: 1. No evidence for deep space infection as questioned. 2. Findings suggest possible otitis externa. Correlate clinically. 3. Right auricular and periauricular soft tissue thickening and inflammatory stranding suggesting cellulitis. No evidence for abscess. 4. Presumed reactive right cervical lymphadenopathy. ASSESSMENT/PLAN IMPRESSION AND PLAN Amelia Sr is 46-year-old female patient with history of hidradenitis suppurative on Humira, uveitison methotrexate, and eczema who presents with worsening right ear swelling, pain, and redness spreading anterior to the ear and down neck since yesterday after starting bactrim and cyclosporin ear drops. Due to worsening symptoms, there is concern for spreading infection especially in the setting of her chronic immunosuppression and household MRSA exposure. Will obtain basic labs, start intravenous Vancomycin antibiotics, and assess area with CT neck to ensure no deep space neck infection. Patient is from out of town and worsened since yesterday on PO antibiotics, and can benefit from hospitalization for further management. 185 Spoke with hospitalist Jennifer regarding admission for IV antibiotics and observation. They proposed discharge with PO Vancomycin after her intravenous antibiotics. We discussed reaching out to ENT for their recommendations. 1917 Consulted with ENT regarding possible oral antibiotics. They will call back. DIFFERENTIAL DIAGNOSIS Cellulitis, abscess, mastoiditis, otitis media. I reviewed previous medical records including lab results and radiology images/report. Mecca Stephens 05/13/221914 Mecca Stephens 05/13/221919 documented in this encounter Plan of Treatment Not on filedocumented as of this encounter Procedures Procedure Name Priority Date/Time Associated Comments [...] CDT procedure are in the results section. CBC WITH STAT 05/13/2022 5:38 Results for this DIFFERENTIAL, B PM CDT procedure ar e in the results section. LACTATE, B/P STAT 05/13/2022 5:38 Results for this PM CDT procedure are i n the results section. BASIC METABOLIC STAT 05/13/2022 5:38 Results f or this PANEL, S/P PM CDT procedure are i n the results section. BACTERIA / ALCIRA STAT 05/13/2022 5:22 Result s for this CULTURE, BLOOD PM CDT procedure are in the results section. documented in this encounter Results Glucose, POCT (05/14/2022 11:40 AM CDT) athologist Signature Glucose, POCT, 104 70 - 140 05/14/2022 [facility] B mg/dL 11:40 AM CDT Specimen Anatomical Collection Method Collection Time Receive d Time (Source) Location / / Volume Laterality Blood 05/14/2022 11:40 05/14/2022 AM CDT 12:19 PM CDT Generic Rals LAB POCT ORDERABLES-MANUAL Performing Organization Address City/[facility] Code Phon e Number [facility]- [address] [place] [address] [place] [facility] [place] [facility] - [address] Glucose, POCT (05/14/2022 6:30 AM CDT) athologist Signature Glucose, POCT, 89 70 - 140 05/14/2022 [facility] B mg/dL 6:30 AM CDT Specimen Anatomical Collection Method Collection Time Receive d Time (Source) Location / / Volume Laterality Blood 05/14/2022 6:30 AM 6:47 CDT AM CDT Generic [facility] LAB POCT ORDERABLES-MANUAL Performing Organization Address City/[facility] Phon e Number [facility]- [address] [place] [address] [facility] [facility] - [address] (ABNORMAL) CBC with Differential, Blood (05/14/2022 5:31 AM CDT) [facility] gist Method Time Signature Hemoglobin 11.7 [...] Laterality Blood (Blood, 05/14/2022 5:31 AM 05/14/20 22 6:19 Venous) CDT AM CDT Baltazar Bowden M.D. LAB BLOOD ADD-ON Performing Organization Address City/State/ZIP Code Phon e Number [facility]- [address] [place] [address] [facility] [place], [place] [id number] [place] [address] Basic Metabolic Panel (05/14/2022 5:31 AM CDT) athologist Signature Potassium, P 3.9 3.6 - [...] Organization Address City/State/ZIP Code Phon e Number [facility]- [address] [place] [address] [facility] [facility] [place], [place] [id number] [place] [address] MRSA PCR, Nasal (05/13/2022 10:47 PM CDT) athologist Signature MRSA Screen, Negative Negative 05/14/2022 [facility] Nasal by PCR 12:24 AM CDT Specimen Anatomical Collection Method Collection Time Receive d Time (Source) Location / / Volume Laterality Swab (Nares) 05/13/2022 10:47 05/13/2022 PM CDT 11:15 PM CDT Baltazar Bowden M.D. LAB MICROBIOLOGY - GENER AL ORDERABLES Performing Organization Address City/[facility]/ZIP Code Phon e Number [facility]- [address] [place] [address] [facility] [facility] - [address] Glucose, POCT (05/13/2022 10:23 PM CDT) P athologist Signature Glucose, POCT, 140 70 - 140 05/13/2022 [facility] B mg/dL 10:23 PM CDT Specimen Anatomical Collection Method Collection Time Receive d Time (Source) Location / / Volume Laterality Blood 05/13/2022 10:23 05/13/2022 PM CDT 11:01 PM CDT Generic [facility] LAB POCT ORDERABLES-MANUAL Performing Organization Address City/[facility]/ZIP Code Phon e Number [facility] [address] [place] [address] [facility] [place], [place] [id number] [place] [address] Lactate, 3 hour draw (05/13/2022 8:14 PM CDT) athologist Signature Lactate, P 0.9 0.5 - 2.2 05/13/2022 [facility] mmol/L 8:44 PM CDT Specimen Anatomical Collection Method Collection Time Receive d Time (Source) Location / / Volume Laterality Blood (Blood, 05/13/2022 8:14 PM 05/13/20 22 8:18 Venous) CDT PM CDT Brandt Heath M.D. LAB BLOOD NON ADD-ON Performing Organization Address City/[facility]/ZIP Code Phon e Number [facility]- [address] [place] [address] [facility] [place], [place] [id number] [place] [address] SARS Coronavirus 2, PCR, V Symptomatic (05/13/2022 6:39 PM CDT) [facility] Method Time Signature SARS-Coronavi Undetected Undetected 05/13/2022 [facility] anival-2, PCR 7:30 PM CDT Comment: SARS-CoV-2 RNA absent. ?? ----ADDITIONAL INFORMATION---- This RT-PCR test using the Xpert Xpress SARS-CoV-2/Flu/RSV assay ([employer] performed on the [employer] rt DX systems has received Emergency Use Authorization (EU A) by the U.S. Food and Drug Administration. Performanc e characteristics were verified by [facility] in a manner consistent with CLIA requirements . Fact sheets for this Emergency Use Autho rization (EUA) assay can be found at the following link s: For Healthcare Providers: https://www.fda.gov/media/696847/downloa d For Patients: https://www.fda.gov/media/957422/downloa d Specimen Source Swab, Nasopharynx 05/13/2022 6:47 PM CDT [facility] Specimen Anatomical Collection Method Collection Time Receive d Time (Source) Location / / Volume Laterality Swab 05/13/2022 6:39 PM 6:47 (Nasopharynx) CDT PM CDT Brandt Heath M.D. LAB MICROBIOLOGY - GENERAL O RDERABLES Performing Organization Address City/State/ZIP Code Phon e Number [facility]- [address] [place] [address] [facility] [facility] [place], [place] [id number] [place] [address] Neck Soft [...] Alcira Culture, Blood #2 (05/13/2022 5:39 PM CDT) Patholo gist Method Time Signature Bacteria/Tia No growth [...] Organization Address City/State/ZIP Code Phon e Number [facility]- [address] [place] [address] [facility] [facility] [place], [place] [id number] [place] [address] (ABNORMAL) Basic Metabolic Panel (05/13/2022 5:38 PM CDT) Analysis Performed At Patho logist Time Signature Potassium, P 4.3 3.6 - 5.2 05/13/2022 [facility] mmol/L 6:11 PM CDT Sodium, P 138 135 - 145 05/13/2022 [facility] mmol/L 6:11 PM CDT Chloride, P 101 98 - 107 05/13/2022 [facility] mmol/L 6:11 PM CDT Bicarbonate, P 26 22 - 29 05/13/2022 [facility] mmol/L 6:12 PM CDT Anion Gap, P 11 7 - 15 05/13/2022 [facility] 6:11 PM CDT BUN (Blood Urea 14 6 - 21 05/13/2022 [facility] Nitrogen), P mg/dL 6:12 PM CDT Creatinine 1.09 (H) 0.59 - 05/13/2022 [facility] 1.04 mg/dL 6:12 PM CDT Estimated GFR 64 >=60 05/13/2022 [facility] (eGFR) mL/min/BSA 6:12 PM CDT Comment: Estimated GFR calculated using the 2020 CKD_EPI creatinine equation. Calcium, Total, P 9.6 8.6 - 10.0 mg/dL 05/13/2022 6:12 PM CDT [facility] Glucose, P 123 70 - 140 mg/dL 05/13/2022 6:12 PM CDT A UST Specimen Anatomical Collection Method Collection Time Receive d Time (Source) Location / / Volume Laterality Blood (Blood, 05/13/2022 5:38 PM 05/13/20 5:45 Venous) CDT PM CDT Brandt Heath M.D. LAB BLOOD ADD-ON Performing Organization Address City/State/ZIP Code Phon e Number [facility]- [address] [place] [address] [facility] [place] [address] [facility] [address] (ABNORMAL) CBC with Differential, Blood (05/13/2022 5:38 PM CDT) [facility] gist Method Time Signature Hemoglobin 12.7 11.6 - 05/13/2022 [facility] 15.0 g/dL 6:01 PM CDT Hematocrit 37.7 35.5 - 05/13/2022 [facility] 44.9 % 6:01 PM CDT Erythrocytes 3.82 (L) 3.92 - 05/13/2022 [facility] 5.13 6:01 PM CDT x10(12)/L MCV 98.7 (H) 78.2 - 05/13/2022 [facility] 97.9 fL 6:01 PM CDT RBC Distrib Width 12.4 12.2 - 05/13/2022 [facility] 16.1 % 6:01 PM CDT Platelet Count 296 157 - 371 05/13/2022 [facility] x10(9)/L 6:01 PM CDT Leukocytes 6.6 3.4 - 9.6 05/13/2022 [facility] x10(9)/L 6:01 PM CDT Neutrophils 3.15 1.56 - 05/13/2022 [facility] 6.45 6:01 PM CDT x10(9)/L Lymphocytes 2.75 0.95 - 05/13/2022 [facility] 3.07 6:01 PM CDT x10(9)/L Monocytes 0.57 0.26 - 05/13/2022 [facility] 0.81 6:01 PM CDT x10(9)/L Eosinophils 0.12 0.03 - 05/13/2022 [facility] 0.48 6:01 PM CDT x10(9)/L Basophils 0.04 0.01 - 05/13/2022 [facility] 0.08 6:01 PM CDT x10(9)/L Specimen Anatomical Collection Method Collection Time Receive d Time (Source) Location / / Volume Laterality Blood (Blood, 05/13/2022 5:38 PM 05/13/20 5:45 Venous) CDT PM CDT Brandt Heath M.D. LAB BLOOD ADD-ON Performing Organization Address City/[facility]/ZIP [facility] Phon e Number [facility]- [address] [place] [address] [facility] [facility] - [address] Lactate, baseline (05/13/2022 5:38 PM CDT) P athologist Signature Lactate, P 1.4 0.5 - 2.2 05/13/2022 [facility] mmol/L 6:09 PM CDT Specimen Anatomical Collection Method Collection Time Receive d Time (Source) Location / / Volume Laterality Blood (Blood, 05/13/2022 5:38 PM 05/13/20 5:45 Venous) CDT PM CDT Brandt Heath M.D. LAB BLOOD NON ADD-ON Performing Organization Address City/[facility] Phon e Number [facility]- [address] [place] [address] [facility] [facility] - [address] Bacteria / Alcira Culture, Blood #1 (05/13/2022 5:22 PM CDT) Patholo gist Method Time Signature Bacteria/Tia No growth 05/18/2022 [facility] da Culture, after 5 6:07 PM CDT Blood day/s of incubation. Specimen (Source) Anatomical Collection Method Collection Time Re ceived Time Location / / Volume Laterality Blood (Blood, 05/13/2022 5:22 05/13/2022 5:43 Peripheral Draw) PM CDT PM CDT Comment: Specimen Source Site: Blood Brandt Heath M.D. LAB MICROBIOLOGY - GENERAL O RDERABLES Performing Organization Address City/[facility]/ZIP Code Phon e Number [facility]- [address] [place] [address] [facility] [address] documented in this encounter Visit Diagnoses Diagnosis Cellulitis - Primary Cellulitis Otitis Externa Acute Right Otitis Externa Acute Right documented in this encounter Admitting Diagnoses Diagnosis Cellulitis Otitis Externa Acute Right documented in this encounter Administered Medications Inactive Administered Medications - up to 3 most recent administrations Medication Order MAR Action Action Date Dose Rate Site ARIPiprazole tablet 5 mg (ABILIFY) Given 05/13/2022 11:39 PM CDT 5 mg 5 mg, oral, Daily, First dose on 05/13/22 at 2315 cefepime in D5W IVPB 2 g (MAXIPIME) New Bag 05/14/2022 8:26 AM CDT 2 g 100 mL/hr 2 g, intravenous, at 100 mL/hr, Administer over 30 Minutes, Every 12 hours, First dose on 05/13/22 at 2100, Duplex bag - activate before hanging. , Drug Monitoring Program: Pharmacist to adjust medication dosing based on indication and drug clearance factors., Indications: Skin and soft tissue infection New Bag 05/13/2022 10:21 PM CDT 2 g 100 mL/hr diphenhydrAMINE-zinc acetate 2 % Given 05/13/2022 11:39 PM CDT 1 application cream 1 application (BENADRYL ES) 1 application, topical, 4 times daily PRN, itching, Starting on 05/13/22 at 2251 enoxaparin injection 40 mg Given 05/14/2022 8:26 AM CDT 40 mg Left Lower Abdomen (LOVENOX) 40 mg, subcutaneous, Every 24 hours scheduled, First dose on 05/14/22 at 0900 folic acid tablet 1 mg Given 05/14/2022 8:26 AM CDT 1 mg 1 mg, oral, Daily, First dose on 05/14/22 at 0900 insulin aspart U-100 injection 0-7 Units (NovoLOG FlexPen) 0-7 Units, subcutaneous, 3 times daily, First dose on 05/14/22 at 0800, Insulin Scale: Mild Correction Scale, 180 - 219: 2 units, 220 - 259: 3 units, 260 - 299: 4 units, 300 - 339: 5 units, 340 - 379: 6 units, 380 - 3 99: 7 units, Greater than 399: Call service writing Insulin orders insulin aspart U-100 injection 0-7 Units (NovoLOG FlexPen) 0-7 Units, subcutaneous, Daily at bedtime, First dose on 05/13/22 at 2100, Insulin Scale: Modified Bedtime Correction Scale, 220- 259: 3 units, 260-299: 4 units, 300-339: 5 units, 340-379: 6 unit s, 380-399: 7 units, Greater than 399: Call service writing insulin orders iohexoL 300 mg iodine/mL solution 1-200 mL Given 05/13/2022 6:05 PM CDT 130 mL (OMNIPAQUE) 1-200 mL, intravenous, Once in imaging, contrast, Starting on 05/13/22 at 1740, For 1 dose methotrexate tablet 15 mg Given 05/14/2022 9:35 AM CDT 15 mg 15 mg, oral, Every 7 days, First dose on 05/14/22 at 0900, For 59 days methylphenidate HCl 24 hr tablet 54 mg Given 05/14/2022 9:35 AM CDT 54 mg (CONCERTA) 54 mg, oral, Daily, First dose on 05/14/22 at 0900, Swallow whole. Do NOT crush, chew, or split tablet. metoprolol succinate 24 hr tablet 50 mg Given 05/14/2022 8:26 AM CDT 50 mg (TOPROL-XL) 50 mg, oral, Daily, First dose on 05/14/22 at 0900, Do NOT crush or chew. Tablet may be split on score if needed. NaCl 0.9 % bolus 1,000 mL New Bag 05/13/2022 5:48 PM CDT 1,000 mL 1000 mL/hr 1,000 mL, intravenous, at 1,000 mL/hr, Administer over 1 Hours, Once, On 05/13/22 at 1706, For 1 dose NaCl 0.9% infusion New Bag 05/14/2022 8:31 AM CDT 100 mL/hr 100 mL/hr 100 mL/hr, intravenous, Continuous, Starting on 05/13/22 at 2100, For 12 hours New Bag 05/13/2022 10:21 PM CDT 100 mL/hr 100 mL/hr [id number] otic solution 2 drop Given 05/13 11:38 PM CDT 2 drops (CORTISPORIN) 2 drop, right ear, 3 times daily, First dose on 05/13/22 at 2315, For 6 days [id number] otic solution 2 drop Given 05/14/2022 8:31 AM CDT 2 drops (CORTISPORIN) 2 drop, right ear, 3 times daily, First dose (after last reorder) on 05/14/22 at 0900, For 6 days sodium chloride 0.9 % flush 1-500 mL Given 05/13/2022 6:05 PM CDT 60 mL 1-500 mL, intravenous, Once in imaging, line care, Starting on 05/13/22 at 1740, For 1 dose sodium chloride 0.9 % injection 10 mL Given 05/13/2022 6:04 PM CDT 10 mL 10 mL, intravenous, Once in imaging, line care, Starting on 05/13/22 at 1740, For 1 dose sodium chloride 0.9 % injection 2-10 mL 2-10 mL, intravenous, As needed, line care, Starting o n 05/13/22 at 1703 spironolactone tablet 50 mg (ALDACTONE) Given 05/14/2022 6:37 AM CDT 50 mg 50 mg, oral, 2 times daily, First dose on 05/14/22 at 0600 vancomycin 2,000 mg in NaCl 0.9% New Bag 05/13/2022 6:17 PM CD T 2,000 mg 260 mL/hr IVPB (VANCOCIN) 2,000 mg, intravenous, at 260 mL/hr, Administer over 120 Minutes, Once, On 05/13/22 at 1706, For 1 dose, Drug Monitoring Program: Pharmacist to adjust medication dosing based on indication and drug clearance factors., Indications: Skin and soft tissue infection venlafaxine XR 24 hr capsule 150 mg Given 05/14/2022 8:26 AM CDT 150 mg (EFFEXOR-XR) 150 mg, oral, Daily with breakfast, First dose on 05/14/22 at 0800, Swallow whole. Do NOT crush, chew or open capsule. documented in this encounter Active and Recently Administered Medications Times are shown in CDT. Scheduled Medication Order 05/12/2022 05/13/2022 05/14/2022 ARIPiprazole tablet 5 mg (ABILIFY) 6615 (Given - Provider: Jessie Wilhelm R.N.) 5 mg, oral, Daily, First dose on 05/13/22 at 2315 cefepime in D5W IVPB 2 g (MAXIPIME) 2221 (New Bag - Provider: Jessie Wilhelm R.N.) 0826 (New Bag - Provider: Meghna damon R.N.)0900 (Stopped - Provider: Meghna Elliott R.N.) 2 g, intravenous, at 100 mL/hr, Administ er over 30 Minutes, Every 12 hours, First dose on 05/13/22 at 2100, Duplex bag - activate before hanging. , Drug Monitoring Program: Pharmacist to adjust medic ation dosing based on indication and shaan g clearance factors., Indications: Skin and soft tissue infection enoxaparin injection 40 mg (LOVENOX) 08 (Given - Provider: Meghna Elliott R.N.) 40 mg, subcutaneous, Every 24 hours sche duled, First dose on [place] 05/14/22 at 0900 folic acid tablet 1 mg 08 (Giv en - Provider: Meghna Elliott R.N.) 1 mg, oral, Daily, First dose on [place] 05/14/22 at 0900 influenza quadrivalent (PF) (6 months & older) vaccine 0.5 mL (FLUZONE/FLUARIX) 0.5 mL, intramuscular, Once, On [facility] 05/13/22 at 0900, For 1 dose insulin aspart U-100 injection 0-7 Units (NovoLOG FlexPen) 0725 (Not Given - Provider: Meghna Elliott R.N. - Reason: Order parameters not met - Comment: bg [phone] (Not Given - Provider: Meghna Elliott R.N. - Reason: Order parameters not met - Comment: bg 103) 0-7 Units, subcutaneous, 3 times daily, First dose on [place] 05/14/22 at 0800, Insulin Scale: Mild Correction Scale, 180 - 219: 2 units, 220 - 259: 3 units, 260 - 299: 4 units, 300 - 339: 5 units, 340 - 379 : 6 units, 380 - 399: 7 units, Greater t guy 399: Call service writing Insulin orders insulin aspart U-100 injection 0-7 Units (NovoLOG FlexPen) 2225 (Not Given - Provider: Jessie J Choco, R.N. - Reason: Order parameters not met) 0-7 Units, subcutaneous, Daily at bedtim e, First dose on 05/13/22 at 2100, Insulin Scale: Modified Bedtime Correction Scale, 220-259: 3 units, 260-299: 4 units, 300-339: 5 units, 340-379: 6 units, 38 0-399: 7 units, Greater than 399: Call service writing insulin o rders methotrexate tablet 15 mg 0935 ( Given - Provider: Meghna Elliott R.N.) 15 mg, oral, Every 7 days, First dose on 05/14/22 at 0900, Fo r 59 days methylphenidate HCl 24 hr tablet 54 mg (CONCERTA) 35 (Given - Provider: Meghna Elliott R.N.) 54 mg, oral, Daily, First dose on Sun at 0900, Swallow whole. Do NOT crush, chew, or split tablet. metoprolol succinate 24 hr tablet 50 mg (TOPROL-XL) 08 (Given - Provider: Meghna Elliott R.N.) 50 mg, oral, Daily, First dose on Sun at 0900, Do NOT crush or chew. Tablet may be split on score if needed. NaCl 0.9 % bolus 1,000 mL (COMPLETED) 17 48 (New Bag - Provider: Joan Horowitz RHilda)1848 (Stopped - Provider: Joan Horowitz R.N.) 1,000 mL, intravenous, at 1,000 mL/hr, A dminister over 1 Hours, Once, On 05/13/22 at 1706, For 1 dose [id number] otic solution 2 drop (CORTISPORIN) (CA NCELED) 2338 (Given - Provider: Jessie Wilhelm R.N.) 2 drop, right ear, 3 times daily, First dose on Sat at 2315, For 6 days fsjsgmhf-[id number]-NO otic solution 2 drop (CORTISPORIN) 0831 (Given - Provider: Meghna Elliott R.N.) 2 drop, right ear, 3 times daily, First dose (after last reorder) on 05/14/22 at 0900, For 6 days spironolactone tablet 50 mg (ALDACTONE) 636 (Given - Provider: Jessie Wilhelm R.N.) 50 mg, oral, 2 times daily, First dose on 05/14/22 at 0600 vancomycin 2,000 mg in NaCl 0.9% IVPB (VANCOCIN) (COMPLETED) 1816 (New Bag - Provider: Ney Kebede R.N. - Comment: At CT and awaiting cultures)2027 (Stopped - Provider: Guilherme Pearson R.N.) 2,000 mg, intravenous, at 260 mL/hr, Adm inister over 120 Minutes, Once, On 05/13/22 at 1706, For 1 dose, Drug Monitoring Program: Pharmacist to adjust medication dosing based on indication and drug c learance factors., Indications: Skin and soft tissue infection venlafaxine XR 24 hr capsule 150 mg (EFFEXOR-XR) 825 (Given - Provider: Meghna Elliott R.N.) 150 mg, oral, Daily with breakfast, Firs t dose on 05/14/22 at 0800, Swallow whole. Do NOT crush, chew or open capsule. Continuous Medication Order 05/12/2022 05/13/2022 05/14/2022 NaCl 0.9% infusion 2221 (New Bag - Provider: Junie Wilhelm R.N.) 0831 (New Bag - Provider: Meghna Elliott R.N.)1232 (Stopped - Provider: Meghna Elliott R.N.) 100 mL/hr, intravenous, Continuous, Star ting on 05/13/22 at 2100, For 12 hours PRN Medication Order 05/12/2022 05/13/2022 05/14/2022 acetaminophen tablet 500 mg (TYLENOL) 500 mg, oral, Every 6 hours PRN, mild pa in or score 1-3 of 10, headaches, fever, Starting on 05/13/22 at 2043, Not to exceed 4 grams of acetaminophen in 24 hours all sources bisacodyL suppository 10 mg (DULCOLAX) 10 mg, rectal, Daily PRN, constipation, Starting on 05/13/22 at 2043, Ordered sequence of administration: polyethylene glycol, then bisacodyl until BM achieved. calcium carbonate chewable tablet 400 mg of calcium (TUMS) 400 mg of calcium, oral, Every 2 hour OH N, heartburn, indigestion, Starting on 05/13/22 at 204, Doses listed are in mg of elemental calcium. Take with food. 500 mg calcium carbonate contains 200 mg of elemental calcium. diphenhydrAMINE-zinc acetate 2 % cream 1 application (BENADR YL ES) 4127 (Given - Provider: Jessie Wilhelm R.N.) 1 application, topical, 4 times daily OH N, itching, Starting on 05/13/22 at 2251 iohexoL 300 mg iodine/mL solution 1-200 mL (OMNIPAQUE) (COMP LETED) 180 (Given - Provider: Sayra Melendez(R) - Comment: lot # [id number]# [id number]) 1-200 mL, intravenous, Once in imaging, contrast, Starting on 05/13/22 at 1740, For 1 dose ipratropium-albuteroL 0.5-2.5 mg/3 mL nebulizer solution 3 mL (D UONEB) 3 mL, nebulization, Every 6 hours PRN, w heezing, shortness of breath, Starting on 05/13/22 at 2043 methylphenidate HCl tablet 15 mg (RITALIN) 15 mg, oral, Daily PRN, ADHD, Starting o n 05/13/22 at 2310, Please call pharmacy if needed polyethylene glycol powder packet 17 g (MIRALAX) 17 g, oral, Daily PRN, constipation, Sta rting on 05/13/22 at 2043, Ordered sequence of administration: polyethylene glycol, then bisacodyl until BM achieved. Avoid mixing with starch-based thickened liquids. sodium chloride 0.9 % flush 1-500 mL (COMPLETED) 180 (Given - Provider: Sayra Melendez(R)) 1-500 mL, intravenous, Once in imaging, line care, Starting on 05/13/22 at 1740, For 1 dose sodium chloride 0.9 % injection 10 mL (COMPLETED) 180 (Given - Provider: Sayra Melendez(R)) 10 mL, intravenous, Once in imaging, jean carlos e care, Starting on 10/8/22 at 1740, For 1 dose sodium chloride 0.9 % injection 2-10 mL(Linked Group 1) 2-10 mL, intravenous, As needed, line care, Starting on Sat 05/13 at 1703 Linked Groups Order Group 1: Place peripheral IV: No upper extremity site restrictions (COMPLETED) Upper extremity site restriction: No upp er extremity site restrictions
Quantity of PIVs requested: One
STAT, Once, On 05/13/22 at 1704, For 1 occurrence And sodium chloride 0.9 % injection 2-10 mLJump to med 2-10 mL, intravenous, As needed, line ca re, Starting on 05/13/22 at 1703 documented in this encounter Additional Health Concerns Infection Onset Date Last Indicated Resolved Time COVID19 Pending 05/13/2022 05/13/2022 05/13/2022 7:30 PM CDT documented as of this encounter Care Teams Microfilming Document Preparer Relationship Specialty Start Date End Date No Contact, Pcp PCP - General Family Medicine 05/13/22 documented as of this encounter
--- OUTSIDE RECORDS SUMMARY | 2022-06-30 12:47 | XMS_ITS | Encounter Summary ---
:1975 Author Organization [place] Address [address] [place] [address] Care Team Providers Name Role Phone Bola Amor Marcella [facility], [facility] Unavailable [phone] Shaan Ramirez MD Unavailable [phone] KatinaLuis Primary Care Provider Richmond Lane MD Unavailable Encounter Details Date Type Department Care Team Description 06/08/2022 Travel Social History Tobacco Use Types Packs/Day Years Used Date Smoking Tobacco: Never Smokeless Tobacco: Never Sex Assigned at Date Recorded Female 11/23/2021 4:43 PM CDT COVID-19 Exposure Response Date Recorded In the last 10 days, have you been in contact Unable to asse ss 06/08/2022 2:53 PM CDT with someone who was confirmed or suspected to have Coronavirus/COVID-19? documented as of this encounter Plan of Treatment Upcoming Encounters Date Type Specialty Care Team Description 08/11/2022 Virtual Visit Rheumatology [address] MD [address] [place] [address] (Wo rk) 10/27/2022 Office Visit Ophthalmology Shaan Ramirez MD [address] [place] [address] (Wo rk) documented as of this encounter Visit Diagnoses Not on filedocumented in this encounter Additional Health Concerns Assessment Noted Time PHQ-9 Depression Total Score: 6 05/31/2022 9:48 AM CDT documented as of this encounter Care Teams [employer] Technology Teacher Relationship Specialty Start Date End Date Luis Ambriz PCP - General Family Medicine 02/16/22 [facility] [address] [place] [address] Bola Amor, Assigned Behavioral Health 12/04/21 [facility], [facility] Provider [address] [place], [place] [id number] Shaan Ramirez, Assigned Surgical Provider 12/04 [address] [place] [address], Assigned Rheumatology 02/25/22 Provider [address] [place], [place] [id number] documented as of this encounter
--- OUTSIDE RECORDS SUMMARY | 2022-06-30 12:47 | XMS_ITS | Encounter Summary ---
:1975 Author Organization [place] Address [address] [place] [address] Care Team Providers Name Role Phone Bola Amor Marcella [facility], [facility] Unavailable [phone] Shaan Ramirez MD Unavailable [phone] KatinaLuis Primary Care Provider Richmond Lane MD Unavailable Encounter Details Date Type Department Care Team Description 06/20/2022 Travel Social History Tobacco Use Types Packs/Day Years Used Date Smoking Tobacco: Never Smokeless Tobacco: Never Sex Assigned at Date Recorded Female 11/23/2021 4:43 PM CDT COVID-19 Exposure Response Date Recorded In the last 10 days, have you been in contact No / Unsure 06/20/2022 10:26 AM TENTMAKER with someone who was confirmed or suspected to have Coronavirus/COVID-19? documented as of this encounter Plan of Treatment Upcoming Encounters Date Type Specialty Care Team Description 08/11/2022 Virtual Visit Rheumatology [address] Lane MD [address] [place] [address] (Wo roberto) 10/27/2022 Office Visit Ophthalmology Shaan Ramirez MD [address] [place] [address] (Teressa mejia) documented as of this encounter Visit Diagnoses Not on filedocumented in this encounter Additional Health Concerns Assessment Noted Time PHQ-9 Depression Total Score: 6 05/31/2022 9:48 AM CDT documented as of this encounter Care Teams Shoe Dresser Relationship Specialty Start Date End Date KatinaLuis PCP - General Family Medicine 02/16/22 [facility] [address] [place] [address] Bola Amor, Assigned Behavioral Health 12/04/21 [facility], [facility] Provider [address] [place] [phone] Shaan Ramirez, Assigned Surgical Provider 12/04 [address] [place] [address], Assigned Rheumatology 02/25/22 Provider [address] [place], [place] [id number] documented as of this encounter
--- OUTSIDE RECORDS SUMMARY | 2022-06-30 12:47 | XMS_ITS | Encounter Summary ---
:1975 Author Organization [place] Address [address] [place] [address] Care Team Providers Name Role Phone ZuleymaBola chan Marcella [facility], [facility] Unavailable [phone] Shaan Ramirez MD Unavailable [phone] Reason for Visit Reason Onset Date Comments *-*INCOMING RECORDS*-* 02/03/2022 Encounter Details Date Type Department Care Team Description 02/03/2022 PRE VISIT [facility] [address] *-*INC OMING RECORDS*-* Rheumatology Clinic MD Gabe [address] [address] [phone] Social History Tobacco Use Types Packs/Day Years Used Date Smoking Tobacco: Never Smokeless Tobacco: Never Sex Assigned at Date Recorded Female 11/23/2021 4:43 PM CDT documented as of this encounter Miscellaneous Notes Telephone Encounter - Sierra Hugo - 01/19/2022 12:32 PM CDT NOTES Status Details OFFICE NOTE from referring provider Internal 12.27.2021 Shaan Ramirez MD OFFICE NOTE from other specialist DISCHARGE SUMMARY from hospital DISCHARGE REPORT from the ER MEDICATION LIST Internal LABS (Any and all labs) Internal Biopsy/pathology (Anything related to diagnoses I.e. fluid aspirations, lip biopsy, muscle biopsy) Imaging (All imaging related to diagnoses) Echo HRCT CXR EMG Scleroderma/Dermatomyositis diagnoses Previous Cardiology notes Previous Pulmonary notes Previous Dermatology notes Previous GI notes Lupus diagnoses Previous Nephrology notes Previous Dermatology notes Previous Cardiology notes documented in this encounter Plan of Treatment Upcoming Encounters Date Type Specialty Care Team Description 08/11/2022 Virtual Visit Rheumatology Richmond Lane MD [address] [place], [place] [phone] (Wo rk) 10/27/2022 Office Visit Ophthalmology Shaan Ramirez MD [address] [place] [address] (Wo rk) documented as of this encounter Visit Diagnoses Not on filedocumented in this encounter Additional Health Concerns Assessment Noted Time PHQ-9 Depression Total Score: 6 02/02/2022 9:26 AM CDT documented as of this encounter Care Teams Returned Goods Inspector Relationship Specialty Start Date End Date Bola Amor LMFT, Assigned Behavioral Health [facility] Provider [address] [address] Shaan Ramirez MD Assigned Surgical Provider 12/04/[address] [place] [id number] documented as of this encounter
--- OUTSIDE RECORDS SUMMARY | 2022-06-30 12:47 | XMS_ITS | Encounter Summary ---
:1975 Author Organization [place] Address [address] [place] [address] Care Team Providers Name Role Phone Bola Amor Marcella [facility], [facility] Unavailable [phone] Shaan Ramirez MD Unavailable [phone] Katina Luis Primary Care Provider Richmond Lane MD Unavailable Encounter Details Date Type Department Care Team Description 03/20/2022 Travel Social History Tobacco Use Types Packs/Day Years Used Date Smoking Tobacco: Never Smokeless Tobacco: Never Sex Assigned at Date Recorded Female 11/23/2021 4:43 PM CDT COVID-19 Exposure Response Date Recorded In the last 10 days, have you been in contact with No / Unsu re 03/20/2022 10:10 AM CDT someone who was confirmed or suspected to have Coronavirus/COVID-19? documented as of this encounter Plan of Treatment Upcoming Encounters Date Type Specialty Care Team Description 08/11/2022 Virtual Visit Rheumatology [address] Lane MD [address] [place] [address] (Wo rk) 10/27/2022 Office Visit Ophthalmology Shaan Ramirez MD [address] [place] [address] (Wo rk) documented as of this encounter Visit Diagnoses Not on filedocumented in this encounter Additional Health Concerns Assessment Noted Time PHQ-9 Depression Total Score: 5 03/15/2022 12:40 PM CD T documented as of this encounter Care Teams Content Engineer Relationship Specialty Start Date End Date KatinaLuis PCP - General Family Medicine 02/16/22 [facility] [address] [place] [address] Bola Amor, Assigned Behavioral Health 12/04/21 [facility], [facility] Provider [address] [place] [address] Shaan Ramirez, Assigned Surgical Provider 12/04 [address] [place] [address], Assigned Rheumatology 02/25/22 Provider [address] [place] [address] documented as of this encounter
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
--- OUTSIDE RECORDS SUMMARY | 2022-06-30 12:47 | XMS_ITS | Encounter Summary ---
:1975 Author Organization [facility] Address [address] [place] [address] Care Team Providers Name Role Phone Unavailable Primary Care Provider Unavailable Reason for Visit Reason Comments Cellulitis R ear pain, was treated for cellulitis 4/5 months ago. Has eczema and has been itching a lot. Appointment Request (Routine) - Closed Specialty Diagnoses / Procedures Referred By Contact Refer red To Contact Express or Urgent Care Referral ID Status Reason Start Date Expiration Date Visits Requ ested Visits Authorized [id number] Closed 05/12/2022 05/12/2023 1 1 Encounter Details Date Type Department Care Team Description 05/12/2022 Office Visit [facility] Little Coley Otit is Externa Acute Right (Primary Dx); Care at [facility] in [place], C.N.P., R.N. Cellulitis [place], [place] [address] [place] [phone] (Wo rk) Social History Tobacco Use Types Packs/Day Years Used Date Smoking Tobacco: Never Assessed Sex Assigned at Date Recorded Not on file documented as of this encounter Last Filed Vital Signs Vital Sign Reading Time Taken Comments Blood Pressure 139/86 05/12/2022 12:03 PM CDT Pulse 101 05/12/2022 12:03 PM CDT Temperature 36.2 ??C (97.2 ??F) 05/12/2022 12:03 PM CDT Respiratory Rate - - Oxygen Saturation 98% 05/12/2022 12:03 PM CDT Inhaled Oxygen Concentration - - Weight - - Height - - Body Mass Index - - documented in this encounter Progress Notes Little Coley APRN, C.N.P., R.N. - 05/12/2022 12:20 PM CDT SUBJECTIVE CHIEF COMPLAINT/REASON FOR VISIT: Cellulitis (R ear pain, was treated for cellulitis 4/5 months ago. Has eczema and has been itching alot.) HISTORY OF PRESENT ILLNESS: Amelia Sr is a 46 y.o. female, presents to the clinic today for Chief Complaint Patient presents with Cellulitis R ear pain, was treated for cellulitis 4/5 months ago. Has eczema and has been itching a lot. Amelia is a pleasant 46-year-old female who is visiting [place], [place] over the weekend. She states that this morning her right ear canal has been very itchy. As a mornings progress the outer ear itself has become erythematous, slightly swollen, and it feels very hot. There has been no drainage or discharge from the ear. Patient states she has very itchy ears and is always itching at her ears. Shestates the same thing happened about 4-5 months ago and she was seen and treated with ear drops and an antibiotic. She does not have a history of MRSA. She states there is MRSA in the household. Patient has not had any decrease in hearing. She does not have a fever. She has no runny nose stuffy nose, no sore throat or neck stiffness, and no cough. She does have a complicated medical history. She has hydradenitis suppurative and is on Humira for that. She is taking methotrexate for uveitis. ALLERGIES: Reviewed and reconciled in the EMR under the allergies tab of today???s date. MEDICATIONS: Reviewed and reconciled in the EMR under the medications tab of today???s date. OBJECTIVE BP 139/86 (BP Location: Left arm, Patient Position: Sitting, Cuff Size: Large) Pulse 101 Temp 36.2 ??C (Temporal) SpO2 98% PHYSICAL EXAM: General: alert and oriented, no acute distress Right ear: The external ear is erythematous, slightly warm to touch, slight swelling but very slight. The canal is erythematous and slightly swollen. There is no pain when I pick the ear up. No pinna or tragus pain. There is a slight abrasion this 2 mm at the 6 o'clock position in the right ear canal.There is no drainage in the canal. The tympanic membrane is pearly patel with good light reflex. The left ear canal is clear. The left tympanic membrane is pearly patel with good light reflex. Lymph nodes: Bilateral anterior cervical adenopathy. Oral: Patient has no pain with palpation over the TMJ area. She has no pain with opening and closingthe mouth over the TMJ area or in the ear or the face. No pain with palpation down to the chin. No pain through the sinuses on the right side of the face. She has no pain, swelling behind the right ear. Heart: regular rate and rhythm without abnormal sounds. Lungs: clear to auscultation bilaterally. Differential diagnosis is considered sinusitis, otitis media, mastoiditis, lymphadenopathy among others in a immunocompromised patient. ASSESSMENT / PLAN #1 Otitis Externa Acute Right - aheatzme-alafbyjaq-UT (CORTISPORIN) 3.5-10,000-1 mg/mL-unit/mL-% otic solution; Administer 2 dropsinto the right ear 3 (three) times a day for 7 days., Starting Sun05/12/2022, Until Sun05/19/2022, Normal #2 Cellulitis - sulfamethoxazole-trimethoprim (BACTRIM DS) 800-160 mg per tablet; Take 1 tablet by mouth 2 (two) times a day for 10 days., Starting Sun05/12/2022, Until Sun05/22/2022, Normal New Medications Ordered This Visit Medications sulfamethoxazole-trimethoprim (BACTRIM DS) 800-160 mg per tablet Sig: Take 1 tablet by mouth 2 (two) times a day for 10 days. Dispense: 20 tablet Refill: 0 jxdqfvij-tjuphvlej-MW (CORTISPORIN) 3.5-10,000-1 mg/mL-unit/mL-% otic solution Sig: Administer 2 drops into the right ear 3 (three) times a day for 7 days. Dispense: 10 mL Refill: 0 Discussed supportive care options to try for comfort, including appropriate OTC medications per package instructions as needed for symptomatic management as discussed. Tylenol or ibuprofen may be helpful with pain. The treat the infection with Bactrim ds 1 tablet p.o. b.i.d. times 10 days. Patient hasused this in the past. Will also do the Cortisporin drops to help with the itch in the infection in the right ear canal. We talked about warm compress or rice bag to the ear. Discussed diagnosis and treatment plan with the patient. She will be here over the weekend. If symptoms increase, she has increased redness she has swelling in the external ear, increased pain, fever, or any concerns she needs to present to the emergency room at the [facility] immediately. I would like her to follow-up with her primary care provider Sunday or Sunday. Reviewed risks, benefits, and potential side effects of medication use. Signs and symptoms that would indicate the need for urgent/emergent/routine follow up reviewed. Follow up as indicated with questions, concerns, worsening symptoms, or problems. Patient/Family verbalize understanding of our plan and agree. documented in this encounter Plan of Treatment Not on filedocumented as of this encounter Visit Diagnoses Diagnosis Otitis Externa Acute Right - Primary Cellulitis documented in this encounter
--- OUTSIDE RECORDS SUMMARY | 2022-06-30 12:47 | XMS_ITS | Encounter Summary ---
:1975 Author Organization [facility] Address [address] [place] [address] Care Team Providers Name Role Phone Bola Amor Marcella [facility] Unavailable [phone] Shaan Ramirez MD Unavailable [phone] Luis Ambriz Primary Care Provider Richmond Lane MD Unavailable Reason for Visit Reason Onset Date Comments Refill Request 06/05/2022 folic acid (FOLVITE) 1 MG tablet Encounter Details Date Type Department Care Team Description 06/05/2022 Refill M [facility] Eye Shaan Ramirez Re fill Request (folic Clinic - Tiffany Joiner MD acid (FOLVITE) 1 MG [address] tablet) [address] [place] [address] [place], [place] [phone] (Wo rk) [id number] [phone] Social History Tobacco Use Types Packs/Day Years Used Date Smoking Tobacco: Never Smokeless Tobacco: Never Sex Assigned at Date Recorded Female 11/23/2021 4:43 PM CDT COVID-19 Exposure Response Date Recorded In the last 10 days, have you been in contact with No / Unsu re 05/07/2022 5:46 AM CDT someone who was confirmed or suspected to have Coronavirus/COVID-19? documented as of this encounter Miscellaneous Notes Telephone Encounter - Cinthya Correia, RN - 06/05/2022 3:37 PM CDT Medication: folic acid (FOLVITE) 1 MG tablet Requested directions: Take 1 tablet (1 mg) by mouth daily Current directions on the medication list: same Last Written Prescription Date: 01/09/22 Last Fill Quantity: 60, # refills: 2 Last Office Visit: 03/20/22 Future Office visit: 06/20/22 Attending Provider: Ashley Last Clinic Note: Plan/Recommendations: ??? Discussed findings with patient. With the addition of methotrexate [address] Lane with continued use of weekly Humira and prednisone, there is significant improvement in the iritis,intermediate uveitis, macular edema. As things are doing so well off drops, we can continue to monitor without restarting them and taper oral prednisone ??? Eye pressure is normal in both eyes ??? For the prednisone, reduce to 10 mg daily until 04/16/22. Then take 1/2 pill (5 mg), until 05/05, then stop. Let me know if you notice any symptoms when prednisone tapered ??? Continue the Humira weekly and Methotrexate 15 mg (6 pills) weekly and folic acid daily ??? No steroid nor non-steroidal drops neeeded ??? We were able to make an appointment today for x-rays and blood test per Dr. Lane at the [facility] RTC Return for Mid-late June, Daropen, AC check, then dilate with OCT (ordered). Routing refill request to provider for review/approval because: Not on protocol Requires provider review Telephone Encounter - Carolina Reece LPN - 06/05/2022 2:03 PM CDT Images from the original note were not included. documented in this encounter Plan of Treatment Upcoming Encounters Date Type Specialty Care Team Description 08/11/2022 Virtual Visit Rheumatology Richmond Lane MD [address] [place] [address] (Wo rk) 10/27/2022 Office Visit Ophthalmology Shaan Ramirez MD [address] [place], [place] [phone] (Wo rk) documented as of this encounter Visit Diagnoses Diagnosis Intermediate uveitis of both eyes documented in this encounter Additional Health Concerns Assessment Noted Time PHQ-9 Depression Total Score: 6 05/31/2022 9:48 AM CDT documented as of this encounter Care Teams Return To Service Inspector Relationship Specialty Start Date End Date Luis Ambriz PCP - General Family Medicine 02/16/22 [facility] [address] [place] [address] Bola Amor, Assigned Behavioral Health 12/04/21 [facility] Provider [address] [id number] Shaan Ramirez, Assigned Surgical Provider 12/[address] [place] [id number], Assigned Rheumatology 02/25/22 Provider [address] [place] [address] documented as of this encounter
--- OUTSIDE RECORDS SUMMARY | 2022-06-30 12:47 | XMS_ITS | Encounter Summary ---
:1975 Author Organization [facility] Address [address] [place] [address] Care Team Providers Name Role Phone Bola Amor, [facility] Unavailable [phone] Shaan Ramirez MD Unavailable [phone] Encounter Details Date Type Department Care Team Description 12/27/2021 Travel Social History Tobacco Use Types Packs/Day Years Used Date Smoking Tobacco: Never Smokeless Tobacco: Never Sex Assigned at Date Recorded Female 11/23/2021 4:43 PM CDT COVID-19 Exposure Response Date Recorded In the last 10 days, have you been in contact with No / Unsu re 12/27/2021 9:14 AM CDT someone who was confirmed or suspected to have Coronavirus/COVID-19? documented as of this encounter Plan of Treatment Upcoming Encounters Date Type Specialty Care Team Description 08/11/2022 Virtual Visit Rheumatology Richmond Lane MD [address] [place] [address] (Wo roberto) 10/27/2022 Office Visit Ophthalmology Shaan Ramirez MD [address] [place] [address] (Wo roberto) documented as of this encounter Visit Diagnoses Not on filedocumented in this encounter Additional Health Concerns Assessment Noted Time PHQ-9 Depression Total Score: 10 12/07/2021 12:04 PM C DT documented as of this encounter Care Teams Model Set Artist Relationship Specialty Start Date End Date Bola Amor LMFT, Assigned Behavioral Health [facility] Provider [address] [place] [address] [place] [id number] Shaan Ramirez MD Assigned Surgical Provider 12/04/[address] [place] [id number] documented as of this encounter
--- OUTSIDE RECORDS SUMMARY | 2022-06-30 12:47 | XMS_ITS | Encounter Summary ---
:1975 Author Organization [facility] Address [address] [place] [address] Care Team Providers Name Role Phone No Contact, Pcp Primary Care Provider Unavailable Encounter Details Date Type Department Care Team Description 05/14/2022 Ancillary Procedure Department of Wound Ostomy Social History Tobacco Use Types Packs/Day Years Used Date Smoking Tobacco: Never Smokeless Tobacco: Never Sex Assigned at Date Recorded Not on file documented as of this encounter Plan of Treatment Not on filedocumented as of this encounter Procedures Procedure Name Priority Date/Time Associated Diagnosis Comme nts WOUND OSTOMY IMAGE Routine 05/14/2022 6:35 AM Res ults for this EXAM CDT procedure are i n the results section. documented in this encounter Results Ear, right anterior 116 118 120 122 [...] Organization Address City/State/ZIP Code Phon e Number IIMS IIMS NA documented in this encounter Visit Diagnoses Not on filedocumented in this encounter Care Teams Quality Assurance Engineer Relationship Specialty Start Date End Date No Contact, Pcp PCP - General Family Medicine 05/13/22 documented as of this encounter
--- OUTSIDE RECORDS SUMMARY | 2022-06-30 12:47 | XMS_ITS | Encounter Summary ---
:1975 Author Organization [facility] Address [address] [place] [address] Care Team Providers Name Role Phone ZuleymaBola [facility], [facility] Unavailable [phone] Shaan Ramirez MD Unavailable [phone] Luis Ambriz Primary Care Provider Richmond Lane MD Unavailable Reason for Visit Diagnostic Imaging XR (Routine) - Pending Review Specialty Diagnoses / Procedures Referred By Contact Refer red To Contact Diagnoses Intermediate uveitis of both eyes High risk medication use Inflammatory back pain Richmond Lane MD Procedures XR Sacroiliac Joint G/E 3 Views [address] [place], [place] [address] Referral ID Status Reason Start Date Expiration Date Visits V isits Requested Authorized [id number] Pending 02/23/2022 02/23/2023 1 1 Review Encounter Details Date Type Department Care Team Description 03/20/2022 Ancillary [facility] [address] Interm ediate uveitis of both eyes; Procedure [facility] Taiwo Bernal MD High risk medication use; [address] Inflammatory back pain [address] [place], [place] [address] [address] [place], [place] [phone] [address] (Work) [phone] Social History Tobacco Use Types Packs/Day Years [...] Virtual Visit Rheumatology Richmond Lane MD [address] [place] [address] (Wo rk) 10/27/2022 Office Visit Ophthalmology Shaan Ramirez MD [address] [place] [address] (Wo rk) documented as of this encounter Procedures Procedure Name Priority Date/Time Associated Diagnosis Comme nts XR SACROILIAC JOINT Routine 03/20/2022 12:25 Intermediate uvei tis Results for this G/E 3 VIEWS PM CDT of both eyes procedure are in High risk medication the res ults use section. Inflammatory back pain documented in this encounter Results XR Sacroiliac Joint G/E 3 Views (03/20/2022 12:25 PM CDT) Anatomical Region Laterality Modality Abdomen/Pelvis Digital Radiography Specimen (Source) Anatomical Location Collection Method / Collectio n Time Received Time / Laterality Volume Impressions 03/20/2022 1:33 PM CDT Impression: Mild sclerosis at the bilateral sacroiliac joint particularly on the iliac aspect caudall yJovita BUITRAGO Piehole Narrative 03/20/2022 1:33 PM CDT 3 views sacroiliac joint radiographs 03/20/2022 1:31 PM History: Evaluate for Sacroilitis or Scl erosis; Intermediate uveitis of both eyes; High risk medication use; Inflammatory back pain Comparison: None available. Findings: Outlet, 3 bilateral oblique views of the bilateral sacroiliac joints obtained. No acute osseous abnormality. ??No evide nce of erosion or ankylosis on either sacroiliac joint. Mild sclerosis at the bilateral sacroili ac joint particularly on the iliac aspect caudally. No radiographic e vidence of erosion. Hip joint spaces are relatively preserve d. Presumed fallopian occluder device, only one seen in the field of vi ew. Pelvic phlebolith. Procedure Note Glynn Weldon MD - 03/20/2022Forma tting of this note might be different from the original. 3 views sacroiliac joint radiographs 03/06 1:31 PM History: Evaluate for Sacroilitis or Scl erosis; Intermediate uveitis of both eyes; High risk medication use; Inflammatory back pain Comparison: None available. Findings: Outlet, 3 bilateral oblique views of the bilateral sacroiliac joints obtained. No acute osseous abnormality. No evidenc e of erosion or ankylosis on either sacroiliac joint. Mild sclerosis at the bilateral sacroili ac joint particularly on the iliac aspect caudally. No radiographic e vidence of erosion. Hip joint spaces are relatively preserve d. Presumed fallopian occluder device, only one seen in the field of vi ew. Pelvic phlebolith. Impression: Mild sclerosis at the bilate ral sacroiliac joint particularly on the iliac aspect caudall y. GLYNN WELDON Richmond Lane MD IMG DIAGNOSTIC IMAGING ORDER ELI documented in this encounter Visit Diagnoses Diagnosis Intermediate uveitis of both eyes High risk medication use Encounter for long-term (current) use of other medications Inflammatory back pain documented in this encounter Additional Health Concerns Assessment Noted Time PHQ-9 Depression Total Score: 5 03/15/2022 12:40 PM CD T documented as of this encounter Care Teams Director Speech Language Relationship Specialty Start Date End Date Luis Ambriz PCP - General Family Medicine 02/16/22 [facility] [address] [place] [address] Bola Amor, Assigned Behavioral Health 12/04/21 [facility] Provider [address] [address] Shaan Ramirez, Assigned Surgical Provider 12/04 [address] [place], [place] [phone] [address], Assigned Rheumatology 02/25/[address] [place] [address] documented as of this encounter
--- OUTSIDE RECORDS SUMMARY | 2022-06-30 12:47 | XMS_ITS | Encounter Summary ---
:1975 Author Organization [facility] Address [address] [place] [id number] Care Team Providers Name Role Phone Bola Amor Marcella [facility], [facility] Unavailable [phone] Shaan Ramirez MD Unavailable [phone] KatinaLuis Primary Care Provider Richmond Lane MD Unavailable Encounter Details Date Type Department Care Team Description 12/30/2021 External Order [facility] Outside, Provider Hig h risk medication Results [facility] Molecular use Diagnostics [address] [place] [address] Social History Tobacco Use Types Packs/Day Years [...] Virtual Visit Rheumatology Richmond Lane MD [address] [place] [address] (Wo rk) 10/27/2022 Office Visit Ophthalmology Shaan Ramirez MD [address] [place] [address] (Wo rk) documented as of this encounter Procedures Procedure Name Priority Date/Time Associated Comments Diagnosis HIV ANTIGEN ANTIBODY Routine 12/30/2021 9:15 AM R esults for this COMBO CDT procedure are i n the results section. CBC WITH PLATELETS & Routine 12/30/2021 9:15 AM High risk R esults for this DIFFERENTIAL CDT medication use procedure are in the results section. EXTERNAL LAB RESULTS Routine 12/30/2021 9:15 AM R esults for this CDT procedure are i n the results section. HEPATITIS C ANTIBODY Routine 12/30/2021 9:15 AM R esults for this CDT procedure are i n the results section. HEPATITIS B SURFACE Routine 12/30/2021 9:15 AM Re sults for this ANTIGEN CDT procedure are i n the results section. COMPREHENSIVE Routine 12/30/2021 9:15 AM High risk Results for this METABOLIC PANEL CDT medication use procedure are in the results section. documented in this encounter Results External Lab Results (12/30/2021 9:15 AM CDT) Patholo gist Method Time Signature Scan Lab See Scanned NON-INTERFACE Results Report D (ONBASE (External) SCANS) Comment: Thiopurine Methyltransferase, R BC Specimen (Source) Anatomical Collection Method Collection Time Re ceived Time Location / / Volume Laterality 12/30/2021 9:15 AM CDT Narrative [facility] - 01/06/2022 1:27 PM CDT Verified by Chetan Puga on 01/07/20 22. Provider Outside LABORATORY Performing Organization Address City/State/ZIP Code Phon e Number [facility] NON-INTERFACED (ONBASE SCANS) HIV Antigen Antibody Combo (12/30/2021 9:15 AM CDT) P athologist Signature HIV 1&2 NEGATIVE NEGATIVE NON-INTERFACE Antibody D (ONBASE (External) SCANS) Specimen (Source) Anatomical Collection Method Collection Time Re ceived Time Location / / Volume Laterality Blood 12/30/2021 9:15 AM CDT Narrative [facility] - 01/06/2022 1:23 PM CDT Verified by Chetan Puga on 01/07/20 22. Provider Outside LAB - BLOOD ORDERABLES Performing Organization Address City/State/ZIP Code Phon e Number [facility] NON-INTERFACED (ONBASE SCANS) Hepatitis B surface antigen (12/30/2021 9:15 AM CDT) athologist Signature Hep B Surface NEGATIVE NEGATIVE NON-INTERFACE Agn (External) D (ONBASE SCANS) Specimen (Source) Anatomical Collection Method Collection Time Re ceived Time Location / / Volume Laterality Blood 12/30/2021 9:15 AM CDT Narrative [facility] - 12/30/2021 3:39 PM CDT Verified by Deangelo Carlson on 12/30/2021. Provider Outside LAB - BLOOD ORDERABLES Performing Organization Address City/State/ZIP Code Phon e Number [facility] NON-INTERFACED (ONBASE SCANS) Hepatitis C antibody (12/30/2021 9:15 AM CDT) athologist Signature Hepatitis C NEGATIVE NEGATIVE NON-INTERFACE Antibody D (ONBASE (External) SCANS) Specimen (Source) Anatomical Collection Method Collection Time Re ceived Time Location / / Volume Laterality Blood 12/30/2021 9:15 AM CDT Narrative [facility] - 12/30/2021 3:39 PM CDT Verified by Deangelo Carlson on 12/30/2021. Provider Outside LAB - BLOOD ORDERABLES Performing Organization Address City/State/ZIP Code Phon e Number [facility] NON-INTERFACED (ONBASE SCANS) (ABNORMAL) Comprehensive metabolic panel (12/30/2021 9:15 AM CDT) Analysis Performed At Patho logist Time Signature ALT (External) 35 4 - 35 U/L NON-INTERFACE D (ONBASE SCANS) AST (External) 28 12 - 35 NON-INTERFACE U/L D (ONBASE SCANS) Alk Phosphatase 71 40 - 150 NON-INTERFACE (External) U/L D (ONBASE SCANS) Bilirubin Total 1.0 0.1 - 1.5 NON-INTERFACE (External) mg/dL D (ONBASE SCANS) Albumin 4.3 3.3 - 5.0 NON-INTERFACE (External) g/dL D (ONBASE SCANS) Protein Total 7.2 6.0 - 8.3 NON-INTERFACE (External) g/dL D (ONBASE SCANS) Calcium 9.0 8.4 - 10.6 NON-INTERFACE (External) mg/dL D (ONBASE SCANS) Urea Nitrogen 21 5 - 24 NON-INTERFACE (External) mg/dL D (ONBASE SCANS) Creatinine 1.0 0.5 - 1.5 NON-INTERFACE (External) mg/dL D (ONBASE SCANS) Glucose 142 (H) 60 - 115 NON-INTERFACE (External) mg/dL D (ONBASE SCANS) Sodium 137 135 - 149 NON-INTERFACE (External) mmol/L D (ONBASE SCANS) Potassium 4.6 3.6 - 5.1 NON-INTERFACE (External) mmol/L D (ONBASE SCANS) Chloride 98 96 - 114 NON-INTERFACE (External) mmol/L D (ONBASE (External) SCANS) CO2 (External) 29 20 - 32 NON-INTERFACE mmol/L D (ONBASE SCANS) Specimen (Source) Anatomical Collection Method Collection Time Re ceived Time Location / / Volume Laterality Blood 12/30/2021 9:15 AM CDT Narrative [facility] - 12/30/2021 3:39 PM CDT Verified by Deangelo Carlson on 12/30/2021. Shaan Ramirez MD LAB - BLOOD ORDERABLES Performing Organization Address City/State/ZIP Code Phon e Number [facility] NON-INTERFACED (ONBASE SCANS) (ABNORMAL) CBC with Platelets & Differential (12/30/2021 9:15 AM CDT) [facility] gist Method Time Signature WBC Count 6.97 5.00 - NON-INTERFACE (External) 10.00 D (ONBASE K/UL SCANS) RBC Count 4.55 3.90 - NON-INTERFACE (External) 5.03 M/ul D (ONBASE SCANS) Hemoglobin 14.1 12.0 - NON-INTERFACE (External) 15.5 D (ONBASE GM/DL SCANS) Hematocrit 42.9 34.9 - NON-INTERFACE (External) 44.5 % D (ONBASE SCANS) MCV (External) 94 82 - 98 NON-INTERFACE FL D (ONBASE SCANS) MCH (External) 31 27 - 34 NON-INTERFACE PG D (ONBASE SCANS) MCHC (External) 33 32 - 36 NON-INTERFACE GM/DL D (ONBASE SCANS) Platelet Count 298 150 - 450 NON-INTERFACE (External) K/UL D (ONBASE SCANS) % Neutrophils 67.5 50.0 - NON-INTERFACE (External) 70.0 % D (ONBASE SCANS) % Lymphocytes 27.0 25.0 - NON-INTERFACE (External) 45.0 % D (ONBASE SCANS) % Monocytes 3.6 0.0 - NON-INTERFACE (External) 11.0 % D (ONBASE SCANS) % Eosinophils 1.1 0.0 - 7.0 NON-INTERFACE (External) % D (ONBASE SCANS) % Basophils 0.7 0.0 - 3.0 NON-INTERFACE (External) % D (ONBASE SCANS) Absolute 4.70 1.70 - NON-INTERFACE Neutrophils 7.00 K/UL D (ONBASE (External) SCANS) Absolute 1.88 0.90 - NON-INTERFACE Lymphocytes 2.90 K/UL D (ONBASE (External) SCANS) Absolute 0.25 (L) 0.30 - NON-INTERFACE Monocytes 0.90 K/UL D (ONBASE (External) SCANS) Absolute 0.08 0.00 - NON-INTERFACE Eosinophils 0.50 K/UL D (ONBASE (External) SCANS) Absolute 0.05 0.00 - NON-INTERFACE Basophils 0.20 K/UL D (ONBASE (External) SCANS) RDW (External) 11.7 11.5 - NON-INTERFACE 15.3 % D (ONBASE SCANS) % Immature 0.1 % NON-INTERFACE Granulocytes D (ONBASE (External) SCANS) Absolute Immature 0.01 K/uL NON-INTERFAC E Granulocytes D (ONBASE (External) SCANS) Specimen (Source) Anatomical Collection Method Collection Time Re ceived Time Location / / Volume Laterality Blood 12/30/2021 9:15 AM CDT Narrative [facility] - 12/30/2021 3:39 PM CDT Verified by Deangelo Carlson on 12/30/2021. 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
--- OUTSIDE RECORDS SUMMARY | 2022-06-30 12:47 | XMS_ITS | Encounter Summary ---
:1975 Author Organization [place] Address [address] [place] [address] Care Team Providers Name Role Phone Bola Amor Marcella [facility], [facility] Unavailable [phone] Shaan Ramirez MD Unavailable [phone] Reason for Referral Diagnostic Imaging XR (Routine) - Pending Review Specialty Diagnoses / Procedures Referred By Contact Refer red To Contact Diagnoses Intermediate uveitis of both eyes High risk medication use Inflammatory back pain Richmond Lane MD Procedures XR Sacroiliac Joint G/E 3 Views [address] [place], [place] [address] Referral ID Status Reason Start Date Expiration Date Visits V isits Requested Authorized [id number] Pending 02/23/2022 02/23/2023 1 1 Review Reason for Visit Reason Comments intermediate uveitis Video visit Consultation (Routine) - Pending Review Specialty Diagnoses / Procedures Referred By Contact Refer red To Contact Rheumatology Diagnoses Intermediate uveitis of both eyes High risk medication use Shaan Ramirez MD [address] [place] [address] 5 Referral ID Status Reason Start Date Expiration Date Visits V isits Requested Authorized [id number] Pending 12/27/2021 12/27/2022 1 1 Review Encounter Details Date Type Department Care Team Description 02/03/[address] [facility] Terrance Ramirez MD [address] [place] [address] [id number] Inflammatory back pain (Primary Dx); Rheumatology Clinic Richmond Lane MD [address] [place], [place] [id number] Intermediate uveitis of both eyes; [place] High risk medication use [address] [place] [address] Social History Tobacco Use Types Packs/Day Years Used Date Smoking Tobacco: Never Smokeless Tobacco: Never Sex Assigned at Date Recorded Female 11/23/2021 4:43 PM CDT COVID-19 Exposure Response Date Recorded In the last 10 days, have you been in contact Unable to asse ss 02/16/2022 1:12 PM CDT with someone who was confirmed or suspected to have Coronavirus/COVID-19? documented as of this encounter Progress Notes Richmond Lane MD - 02/03/2022 2:00 PM CDT Images from the original note were not included. Outpatient Rheumatology Consultation This visit was conducted via synchronous video visit due to the current COVID-19 crisis to reduce patient risk. Verbal consent was obtained and is documented below. Name: Amelia Sr Today's date: 02/03/2022 Reason for consult: Evaluation of Requesting physician: Shaan Ramirez MD Assessment & Plan: #persistent/recurrent uveitis/iritis/cystoid macular edema #high risk medication use: humira and methotrexate #sap bw consultant current systemic steroid use 46 year old female with a history of recurrent/persistent iritis/intermediate uveitis, and cystoid macular edema who follows closely with Dr Ramirez of ophthalmology. 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 Unable to uncover obvious signs/symptoms consistent with a systemic rheumatologic/autoimmune diseaseat this time by thorough history outlined below. Her prior serologies support this with negative/normal LEE, RF, ESR/CRP, HLA- B27, angiotensin converting enzyme, CCP, MPO, quant gold/Hep B/C/HIV. CBC and CMP unremarkable on most recent check on 12/30/21. With her ongoing axial stiffness/pain, will obtain xray of SI joints to evaluate for sacroiliitis/ankylosing spondylitis. If unrevealing, likely to obtain MRI afterwards given potential. Will also order standing labs for routine drug toxicity screening for methotrexate/humira with CBC, CMP, ESR, CRP q3 months. She knows to let me know once she has them drawn so that I can look in care everywhere and review. She is currently managed on humira 40mg q7 days, methotrexate 15mg weekly with folic acid 1mg daily,and oral prednisone. Prednisone taper being guided by Dr Ramirez depending on response to recently started methotrexate 3 or so weeks ago. We also discussed that even if xray/MRI unrevealing and ultimately no systemic autoimmune disease, Iwould continue to work alongside Dr Ramirez and manage immunosuppression/drug toxicity monitoring labs etc. She understands. PLAN: 1) SI joint xray. If unrevealing, likely to obtain MRI to evaluate for sacroiliitis/ankylosing spondylitis 2) Continue on humira q7 days, methotrexate 15mg weekly and folic acid, and prednisone 3) Will fax orders for imaging/labs to her local lab once she sends the number/location 4) Will plan to follow-up in 6 months time, though will be in touch once imaging/labs return Richmond Lane MD Rheumatology I spent a total of 45 minutes on the date of service on chart review (ophthalmology, scanned in labs, scanned in imaging), patient encounter, documentation. Subjective: About once per month will have small cutaneous lesions on hands and in her ears, uses topical steroid which resolves her eczema within a few days. In general joints ok. Has mild OA in digits/hands/wrists. Uses diclofenac daily, once daily. Rarely uses the gel. Currently on 20mg prednisone and humiraq2 weeks. Tolerating humira without side effects, injection site or other. Tested positive for COVIDlast week. Missed 2 doses of prednisone and has noticed some more floaters than prior. Started methotrexate on 01/09/22. No side effects. Reports whole back stiffness for many years, up to 30 minutes of stiffness. Improves with stretching/activity. Returns with inactivity/immobility. No hx of DVT/PE. Has hx of one miscarriage, spontaneous, 6 weeks into . Has one child who is healthy. No other pregnancies. Has a BM every 3-4 days. Does not bother her. No blood in her stool. Has a little dry mouth. No dental disease as a result of dry mouth, though has had multiple carries. Has had night sweats for some time. A few years ongoing. Sometimes drenches her clothes, though infrequent. Worse with COVID. No fevers/chills. No symptoms consistent with dactylitis. No recurrent oral/nasal ulcers. No recurrent/progressive epistaxis/hemoptysis. No symptoms consistent with raynauds. No rash, psoriatic orother. No photosensitive rashes. 14 point ROS collected and otherwise negative. Past Medical History Past Medical History: Diagnosis Date ??? Diabetes (H) ??? Hypertension ??? Uveitis Past Surgical History Past Surgical History: Procedure Laterality Date ??? DENTAL SURGERY ??? TUBAL LIGATION Medications Current Outpatient Medications Medication ??? ARIPiprazole (ABILIFY) 5 MG tablet ??? buPROPion (WELLBUTRIN SR) 150 MG 12 hr tablet ??? CONCERTA 54 MG CR tablet ??? diclofenac (VOLTAREN) 1 % topical gel ??? diclofenac (VOLTAREN) 50 MG EC tablet ??? folic acid (FOLVITE) 1 MG tablet ??? HUMIRA *CF* PEN 40 MG/0.4ML pen kit ??? ketorolac tromethamine (ACULAR-LS) 0.4 % SOLN ophthalmic solution ??? metFORMIN (GLUCOPHAGE-XR) 500 MG 24 hr tablet ??? methotrexate 2.5 MG tablet ??? metoprolol succinate ER (TOPROL-XL) 50 MG 24 hr tablet ??? prednisoLONE acetate (PRED FORTE) 1 % ophthalmic suspension ??? predniSONE (DELTASONE) 10 MG tablet ??? spironolactone (ALDACTONE) 50 MG tablet ??? venlafaxine (EFFEXOR-XR) 150 MG 24 hr capsule No current facility-administered medications for this visit. Allergies Allergies Allergen Reactions ??? Hydrocodone-Acetaminophen Hives and Itching ??? Lavandula Latifolia Cough and Other (See Comments) ??? Lavender Oil Cough Family History: mother with MS, dx 4 years before she . Started with optic neuritis. 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 Never smoker (father was). Never drug user. Rare ETOH use. with one son. Objective: Physical exam: No vitals for this video visit. Vitals reviewed in [facility]. GEN: Sitting up at table. NAD HEENT: no facial rash, sclera clear, no inflammatory nose/ external ear changes CV: no upper extremity dependent edema Pulm: speaking in full sentences, no cough, no audible wheezing, no use of accessory muscles Abdomen: not distended Skin: no acute cutaneous lesions MSK: full active ROM of bilateral shoulders, elbows, wrists, MCPs, PIPs, DIPs. Can make full fist without difficulty. No erythema or edema of these joints. Labs: Reviewed. Outlined in A/P Imaging: No axial imaging. MRI head/orbits from 12/09/[address] Richmond Lane MD - 02/03/2022 2:00 PM CDT Amelia is a 46 year old who is being evaluated via a billable video visit. How would you like to obtain your AVS? MyChart If the video visit is dropped, the invitation should be resent by: Text to cell phone: [phone] Will anyone else be joining your video visit? No Video-Visit Details Video Start Time: 2:01pm Type of service: Video Visit Video End Time: 2:28pm Originating Location (pt. Location): Home Distant Location (provider location): [facility] Platform used for Video Visit: Essie Lane MD Rheumatology documented in this encounter Nursing Trina Glynn - 02/03/2022 2:00 PM CDT Patient denies any changes since echeck-in regarding medication and allergies.Patient also states all information entered during echeck-in remains accurate. Patient states they are in [place] for today's virtual visit. Trina Hassan, Virtual Visit Fasilitator documented in this encounter Plan of Treatment Upcoming Encounters Date Type Specialty Care Team Description 08/11/2022 Virtual Visit Rheumatology Richmond Lane MD [address] [place] [address] (Wo rk) 10/27/2022 Office Visit Ophthalmology Shana Ramirez MD [address] [place] [address] (Wo rk) Scheduled Orders Name Type Priority Associated Diagnoses Order S chedule Erythrocyte Lab Routine Intermediate uveitis q3 vivien hs for 10 sedimentation rate auto of both eyes Occurrences starting High risk medication 022 until use 02/23/2023, 1 completed CRP inflammation Lab Routine Intermediate uveitis q3 months for 10 of both eyes Occurrences starting High risk medication 022 until use 02/23/2023, 1 completed Comprehensive metabolic Lab Routine Intermediate uvei tis q3 months for 10 panel of both eyes Occurrences starting High risk medication 022 until use 02/23/2023, 1 completed CBC with platelets Lab Panel Routine Intermediate uveitis q 3 months for 10 differential of both eyes Occurrences starting High risk medication until use 02/23/2023, 1 completed documented as of this encounter Results (ABNORMAL) Comprehensive metabolic panel (03/20/2022 12:38 PM CDT) [facility] Method Time Signature Sodium 139 133 - 144 03/20/2022 [facility] mmol/L 1:11 PM CDT LABORATORY - CORE LAB Potassium 4.4 3.4 - 5.3 03/20/2022 [facility] mmol/L 1:11 PM CDT LABORATORY - CORE LAB Chloride 106 94 - 109 03/20/2022 [facility] mmol/L 1:11 PM CDT LABORATORY - CORE LAB Carbon Dioxide 26 20 - 32 03/20/2022 [facility] (CO2) mmol/L 1:11 PM CDT LABORATORY - CORE LAB Anion Gap 7 3 - 14 03/20/2022 [facility] mmol/L 1:11 PM CDT LABORATORY - CORE LAB Urea Nitrogen 17 7 - 30 03/20/2022 [facility] mg/dL 1:11 PM CDT LABORATORY - CORE LAB Creatinine 1.02 0.52 - 03/20/2022 [facility] 1.04 mg/dL 1:11 PM CDT LABORATORY - CORE LAB Calcium 9.6 8.5 - 10.1 03/20/2022 [facility] mg/dL 1:11 PM CDT LABORATORY - CORE LAB Glucose 108 (H) 70 - 99 03/20/2022 [facility] mg/dL 1:11 PM CDT LABORATORY - CORE LAB Alkaline 56 40 - 150 03/20/2022 [facility] Phosphatase U/L 1:11 PM CDT LABORATORY - CORE LAB AST 22 0 - 45 U/L 03/20/2022 [facility] 1:11 PM CDT LABORATORY - CORE LAB ALT 49 0 - 50 U/L 03/20/2022 [facility] 1:11 PM CDT LABORATORY - CORE LAB Protein Total 7.3 6.8 - 8.8 03/20/2022 [facility] g/dL 1:11 PM CDT LABORATORY - CORE LAB Albumin 3.9 3.4 - 5.0 03/20/2022 [facility] g/dL 1:11 PM CDT LABORATORY - CORE LAB Bilirubin Total 1.1 0.2 - 1.3 03/20/2022 [facility] mg/dL 1:11 PM CDT LABORATORY - CORE LAB GFR Estimate 69 >60 03/20/2022 [facility] mL/min/1.7 1:11 PM CDT LABORATORY - 3m2 CORE LAB Comment: Effective July 26, 2021 eGF Rcr in adults is calculated using the 2020 CKD-EPI creatinine equation which includ es age and gender (Rosa et al., NEJ, DOI: 10.1056/JTCFtk4357076) Specimen Anatomical Collection Method / Collection Time Recei yobany Time (Source) Location / Volume Laterality Blood STRUCTURE OF LEFT Venipuncture / 03/20/2022 12:38 0812/2021 UPPER LIMB / Unknown PM CDT 12:[address]T Unknown Richmond [address] MD LAB - BLOOD ORDERABLES Performing Organization Address City/State/ZIP Code Phon e Number [facility] LABORATORY - CORE LAB [facility] [place] [address] [facility] [address] [facility] 1st Floor Lab Core Lab [facility] LABORATORY - CORE LAB [place], [place] [address] [facility] and [facility] [address] 1st Floor Lab Core Lab CRP inflammation (03/20/2022 12:38 PM CDT) Analysis Performed At Patho logist Time Signature CRP Inflammation <2.9 0.0 - 8.0 03/20/2022 [facility] mg/L 1:11 PM CDT LABORATORY - CORE LAB Specimen Anatomical Collection Method / Collection Time Recei yobany Time (Source) Location / Volume Laterality Blood STRUCTURE OF LEFT Venipuncture / 03/20/2022 12:38 0812/2021 UPPER LIMB / Unknown PM CDT 12:[address]T Unknown Richmond [address] MD LAB - BLOOD ORDERABLES Performing Organization Address [facility] Phon e Number [facility] LABORATORY - CORE LAB [facility] [place] [address] Floor Lab Core Lab [facility] LABORATORY - CORE LAB [place], [place] [address] [address] Floor Lab Core Lab Erythrocyte sedimentation rate auto (03/20/2022 12:38 PM CDT) Patholo gist Method Time Signature Erythrocyte 7 0 - 20 03/20/2022 [facility] Sedimentation Rate mm/hr 12:53 PM CDT LABORATO RY - CORE LAB Specimen Anatomical Collection Method / Collection Time Recei yobany Time (Source) Location / Volume Laterality Blood STRUCTURE OF LEFT Venipuncture / 03/20/2022 12:38 03/06 UPPER LIMB / Unknown PM CDT 12:[address]T Unknown Richmond [address] MD LAB - BLOOD ORDERABLES Performing Organization Address City/[facility] Phon e Number [facility] LABORATORY - CORE LAB [facility] [place] [address] Floor Lab Core Lab [facility] LABORATORY - CORE LAB [place], [place] [address] [facility] Surgery [address] Floor Lab Core Lab XR Sacroiliac Joint G/E 3 Views (03/20/2022 12:25 PM CDT) Anatomical Region Laterality Modality Abdomen/Pelvis Digital Radiography Specimen (Source) Anatomical Location Collection Method / Collectio n Time Received Time / Laterality Volume Impressions 03/20/2022 1:33 PM CDT Impression: Mild sclerosis at the bilateral sacroiliac joint particularly on the iliac aspect caudall y. MINNA WELDON Narrative 03/20/2022 1:33 PM CDT 3 views [...] of vi ew. Pelvic phlebolith. Procedure Note Minna Weldon MD - 03/20/2022Forma tting of this [...] joint particularly on the iliac aspect caudall erin MINNA WELDON Richmond Lane MD IM DIAGNOSTIC IMAGING ORDER ELI documented in this encounter Visit Diagnoses Diagnosis Inflammatory back pain - Primary Intermediate uveitis of both eyes High risk medication use Encounter for long-term (current) use of other medications Intermediate uveitis of both eyes High risk medication use Encounter for long-term (current) use of other medications Inflammatory back pain documented in this encounter Additional Health Concerns Assessment Noted Time PHQ-9 Depression Total Score: 6 02/02/2022 9:26 AM CDT documented as of this encounter Care Teams Hair Machine Operator Relationship Specialty Start Date End Date Bola Amor, DAJUAN, Assigned Behavioral Health [facility] Provider [address] [place], [place] [id number] Shaan Ramirez MD Assigned Surgical Provider 12/04/21 [address] [place], [place] [id number] documented as of this encounter
--- OUTSIDE RECORDS SUMMARY | 2022-06-30 12:47 | XMS_ITS | Encounter Summary ---
:1975 Author Organization [facility] Address [address] [place] [address] Care Team Providers Name Role Phone ZuleymaBola chan Marcella [facility] Unavailable [phone] Shaan Ramirez MD Unavailable [phone] Luis Ambriz Primary Care Provider Encounter Details Date Type Department Care Team Description 02/16/2022 Travel Social History Tobacco Use Types Packs/Day [...] Virtual Visit Rheumatology Richmond Lane MD [address] [place] [address] (Wo rk) 10/27/2022 Office Visit Ophthalmology Shaan Ramirez MD [address] [place] [address] (Wo rk) documented as of this encounter Visit Diagnoses Not on filedocumented in this encounter Additional Health Concerns Assessment Noted Time PHQ-9 Depression Total Score: 6 02/02/2022 9:26 AM CDT documented as of this encounter Care Teams Bootmaker Hand Relationship Specialty Start Date End Date Luis Ambriz PCP - General Family Medicine 02/16/22 [facility] [address] [place] [address] Bola Amor, Assigned Behavioral Health 12/04/21 [facility] Provider [address] [place], [place] [phone] Shaan Ramirez, Assigned Surgical Provider 12/04 MD [address] [place], [place] [phone] documented as of this encounter
--- OUTSIDE RECORDS SUMMARY | 2022-06-30 12:47 | XMS_ITS | Encounter Summary ---
:1975 Author Organization [place] Address [address] [place] [address] Care Team Providers Name Role Phone Bola Amor Marcella [facility], [facility] Unavailable [phone] Shaan Ramirez MD Unavailable [phone] Luis Ambriz Primary Care Provider Richmond Lane MD Unavailable Reason for Visit Reason Comments Uveitis Follow-Up Encounter Details Date Type Department Care Team Description 03/20/2022 Office Visit [facility] Shaan Ramirez In termediate uveitis of both eyes (Primary Dx); Clinic - Rosalino Joiner MD Recurrent iritis, bilateral; Raza Kinsey [facility] Cystoid macular edema of both eyes; Building [place], [place] High risk medication use [address] [facility] [address] [address] 9A [phone] [place], [place] (Work) [address] [phone] Social History Tobacco Use Types Packs/Day Years Used Date Smoking Tobacco: Never Smokeless Tobacco: Never Sex Assigned at Date Recorded Female 11/23/2021 4:43 PM CDT COVID-19 Exposure Response Date Recorded In the last 10 days, have you been in contact with No / Unsu re 03/20/2022 10:10 AM CDT someone who was confirmed or suspected to have Coronavirus/COVID-19? documented as of this encounter Patient Instructions Patient InstructionsShaan Ramirez MD - 03/20/2022 10:30 AM CDT For the prednisone, reduce to 10 mg daily until 04/16/22. Then take 1/2 pill (5 mg), until 05/05, thenstop Continue the Humira weekly and Methotrexate 15 mg (6 pills) weekly and folic acid daily No drops needed Please get the blood tests and the x-rays per Dr. Lane documented in this encounter Progress Notes Shaan Ramirez MD - 03/20/2022 10:30 AM CDT Chief Complaint/Presenting Concern: Uveitis follow up Interval History of Present Ocular Illness: Amelia Sr is a 46 year old patient who returns for follow up of her intermediate uveitis. At lastvisit, we recommended continuing prednisone as the uveitis and macular edema were still active. Since last visit, Methotrexate was added by Dr. Lane and Humira weekly continued. Amelia reports significant improvement in both eyes.She noticed floaters are there, but otherwise doing well off drops for the last week. Interval Updates to Medical/Family/Social History: Got COVID since last visit, but now doing well Relevant Review of Systems Updates: No more coughs/colds, no fatigue or other issues. Laboratory Testing: Will get today Current eye related medications:Prednisone 20 mg daily, Methotrexate 15 mg (6 pills) weekly since mid-late January, Humira 40 mg weekly, off drops for one week Retina/Uveitis Imaging: OCT Spectralis Macula March 20, 2022 right eye: Resolved macular edema left eye: Resolved macular edema Assessment: 1. Intermediate uveitis of both eyes Improved in both eyes 2. Recurrent iritis, bilateral Also improved 3. Cystoid macular edema of both eyes Resolved in both eyes 4. High risk medication use Prednisone 20 mg daily, Oral Methotrexate 15 mg (6 pills) weekly since mid-january, Humira 40 mg weekly Plan/Recommendations: ??? Discussed findings with patient. With [...] blood test per [facility] Return for Mid-late June, Tonopen, AC check, then dilate with OCT (ordered). Physician Attestation Attending Physician Attestation: Complete documentation of historical and exam elements from today'sencounter can be found in the full encounter summary report (not reduplicated in this progress note). I personally obtained the chief complaint(s) and history of present illness. I confirmed and editedas necessary the review of systems, past medical/surgical history, family history, social history, and examination findings as documented by others; and I examined the patient myself. I personally reviewed the relevant tests, images, and reports as documented above. I formulated and edited as necessary the assessment and plan and discussed the findings and management plan with the patient and family m embers present at the time of this visit. Shaan Ramirez M.D., Uveitis and Medical Retina, March 20, 2022 documented in this encounter Nursing Mirta Angel - 03/20/2022 10:30 AM CDT Chief Complaints and History of Present Illnesses Patient presents with ??? Uveitis Follow-Up Chief Complaint(s) and History of Present Illness(es) Uveitis Follow-Up Laterality: both eyes Onset: gradual Onset: months ago Quality: Feels the va is getting better Severity: moderate Frequency: intermittently Associated symptoms: flashes (just yesterday) and floaters. Negative for photophobia Treatments tried: eye drops Pain scale: 0/10 Comments Here for Intermediate uveitis of both eyes Not having the water droplet effect that was there before Ketorolac and Prednisolone last taken about a month ago Prednisone 20 mg Donnaira Mirta Nathan COT 10:27 AM March 20, 2022 documented in this encounter Plan of Treatment Upcoming Encounters Date Type Specialty Care Team Description 08/11/2022 Virtual Visit Rheumatology Richmond Lane MD [address] [place], [place] [phone] (Wo rk) 10/27/2022 Office Visit Ophthalmology Shaan Ramirez MD [address] [place], [place] [phone] (Wo rk) documented as of this encounter Procedures Procedure Name Priority Date/Time Associated Diagnosis Comme nts OCT RETINA Routine 03/20/2022 12:15 Intermediate uveitis Res ults for this SPECTRALIS OU (BOTH PM CDT of both eyes procedur e are in EYE) the results section. documented in this encounter Results OCT Retina Spectralis OU (both eyes) (03/20/2022 12:15 PM CDT) Narrative Shaan Ramirez MD - 03/20/2022 12:15 PM CDT Performed by: rp . Patient cooperation: Reliable . Right Eye Reliability of the test: Good . Findings normal/abnormal: Abnormal OCT . Interpretation: Retinal disease . Plan: Adjust medications . Interval: Better . Left Eye Reliability of the test: Good . Findings normal/abnormal: Abnormal OCT . Interpretation: Retinal disease . Plan: Adjust medications . Interval: Better . 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 High risk medication use Encounter for long-term (current) use of other medications documented in this encounter Additional Health Concerns Assessment Noted Time PHQ-9 Depression Total Score: 5 03/15/2022 12:40 PM CD T documented as of this encounter Care Teams Investment Underwriter Relationship Specialty Start Date End Date Luis Ambriz PCP - General Family Medicine 02/16/22 [facility] [address] [place] [address] Bola Amor, Assigned Behavioral Health 12/04/21 [facility], [facility] Provider [address] [phone] Shaan Ramirez, Assigned Surgical Provider 12/04 [address] [place] [address], Assigned Rheumatology 02/25/22 Provider [address] [place] [address] documented as of this encounter
--- OUTSIDE RECORDS SUMMARY | 2022-06-30 12:47 | XMS_ITS | Encounter Summary ---
:1975 Author Organization [place] Address [address] [place] [address] Care Team Providers Name Role Phone Bola Amor Marcella [facility], [facility] Unavailable [phone] Shaan Ramirez MD Unavailable [phone] KatinaLuis Primary Care Provider Richmond Lane MD Unavailable Encounter Details Date Type Department Care Team Description 03/20/2022 Lab [facility] Lab Interm ediate uveitis of both eyes; [place] High risk medication use [address] Floor [place] [phone] Social History Tobacco Use Types Packs/Day Years [...] Virtual Visit Rheumatology Richmond Lane MD [address] [place] [address] (Wo rk) 10/27/2022 Office Visit Ophthalmology Shaan Ramirez MD [address] [place] [address] (Wo rk) documented as of this encounter Procedures Procedure Name Priority Date/Time Associated Diagnosis Comme nts CBC WITH PLATELETS AND Routine 03/20/2022 12:38 Intermediate u veitis Results for this DIFFERENTIAL PM CDT of both eyes procedure are in High risk medication the res ults use section. CBC WITH PLATELETS & Routine 03/20/2022 12:38 Intermediate uve itis Results for this DIFFERENTIAL PM CDT of both eyes procedure are in High risk medication the res ults use section. ERYTHROCYTE Routine 03/20/2022 12:38 Intermediate uveitis Res ults for this SEDIMENTATION RATE PM CDT of both eyes procedure are in AUTO High risk medication the res ults use section. CRP INFLAMMATION Routine 03/20/2022 12:38 Intermediate uveitis Results for this PM CDT of both eyes procedure are in High risk medication the res ults use section. COMPREHENSIVE Routine 03/20/2022 12:38 Intermediate uveitis Re sults for this METABOLIC PANEL PM CDT of both eyes procedure are in High risk medication the res ults use section. documented in this encounter Results (ABNORMAL) CBC with platelets and differential (03/20/2022 12:38 PM CDT) [facility] gist Method Time Signature WBC Count 10.8 4.0 - 03/20/2022 [facility] 11.0 12:43 PM CDT LABORATORY - 10e3/uL CORE LAB RBC Count 4.39 3.80 - 03/20/2022 [facility] 5.20 12:43 PM CDT LABORATORY - 10e6/uL CORE LAB Hemoglobin 14.3 11.7 - 03/20/2022 [facility] 15.7 g/dL 12:43 PM CDT LABORATORY - CORE LAB Hematocrit 41.9 35.0 - 03/20/2022 [facility] 47.0 % 12:43 PM CDT LABORATORY - CORE LAB MCV 95 78 - 100 03/20/2022 [facility] fL 12:43 PM CDT LABORATORY - CORE LAB MCH 32.6 26.5 - 03/20/2022 [facility] 33.0 pg 12:43 PM CDT LABORATORY - CORE LAB MCHC 34.1 31.5 - 03/20/2022 [facility] 36.5 g/dL 12:43 PM CDT LABORATORY - CORE LAB RDW 13.2 10.0 - 03/20/2022 [facility] 15.0 % 12:43 PM CDT LABORATORY - CORE LAB Platelet Count 321 150 - 450 03/20/2022 [facility] 10e3/uL 12:43 PM CDT LABORATORY - CORE LAB % Neutrophils 80 % 03/20/2022 [facility] 12:43 PM CDT LABORATORY - CORE LAB % Lymphocytes 14 % 03/20/2022 [facility] 12:43 PM CDT LABORATORY - CORE LAB % Monocytes 5 % 03/20/2022 [facility] 12:43 PM CDT LABORATORY - CORE LAB % Eosinophils 0 % 03/20/2022 [facility] 12:43 PM CDT LABORATORY - CORE LAB % Basophils 0 % 03/20/2022 [facility] 12:43 PM CDT LABORATORY - CORE LAB % Immature 1 % 03/20/2022 [facility] Granulocytes 12:43 PM CDT LABORATORY - CORE LAB NRBCs per 100 WBC 0 <1 /100 03/20/2022 [facility] 12:43 PM CDT LABORATORY - CORE LAB Absolute 8.6 (H) 1.6 - 8.3 03/20/2022 [facility] Neutrophils 10e3/uL 12:43 PM CDT LABORATORY - CORE LAB Absolute 1.5 0.8 - 5.3 03/20/2022 [facility] Lymphocytes 10e3/uL 12:43 PM CDT LABORATORY - CORE LAB Absolute 0.5 0.0 - 1.3 03/20/2022 [facility] Monocytes 10e3/uL 12:43 PM CDT LABORATORY - CORE LAB Absolute 0.0 0.0 - 0.7 03/20/2022 [facility] Eosinophils 10e3/uL 12:43 PM CDT LABORATORY - CORE LAB Absolute 0.0 0.0 - 0.2 03/20/2022 [facility] Basophils 10e3/uL 12:43 PM CDT LABORATORY - CORE LAB Absolute Immature 0.1 <=0.4 03/20/2022 [facility] Granulocytes 10e3/uL 12:43 PM CDT LABORATORY - CORE LAB Absolute NRBCs 0.0 10e3/uL 03/20/2022 [facility] 12:43 PM CDT LABORATORY - CORE LAB Specimen Anatomical Collection Method / Collection Time Recei yobany Time (Source) Location / Volume Laterality Blood STRUCTURE OF LEFT Venipuncture / 03/20/2022 12:38 0812/2021 UPPER LIMB / Unknown PM CDT 12:38 PM [address]T Unknown [address] MD LAB - BLOOD ORDERABLES Performing Organization Address City/State/ZIP Code Phon e Number [facility] LABORATORY - CORE LAB [facility] [place] [address] 1st Floor Lab Core Lab [facility] LABORATORY - CORE LAB [place], [place] [address] Clinics [facility] [address] 1[address] Floor Lab Core Lab (ABNORMAL) Comprehensive metabolic panel (03/20/2022 12:38 PM CDT) [facility] Method Time Signature Sodium 139 133 - 144 03/20/2022 [facility] mmol/L 1:11 PM CDT LABORATORY - CORE LAB Potassium 4.4 3.4 - 5.3 03/20/2022 [facility] mmol/L 1:11 PM CDT LABORATORY - CORE LAB Chloride 106 94 - 109 03/20/2022 [facility] mmol/L 1:11 PM CDT LABORATORY - CORE LAB Carbon Dioxide 26 20 - 32 03/20/2022 [facility] (CO2) mmol/L 1:11 PM CDT LABORATORY - CORE LAB Anion Gap 7 3 - 14 03/20/2022 [facility] mmol/L 1:11 PM CDT LABORATORY - CORE LAB Urea Nitrogen 17 7 - 30 03/20/2022 [facility] mg/dL 1:11 PM CDT LABORATORY - CORE LAB Creatinine 1.02 0.52 - 03/20/2022 [facility] 1.04 mg/dL 1:11 PM CDT LABORATORY - CORE LAB Calcium 9.6 8.5 - 10.1 03/20/2022 [facility] mg/dL 1:11 PM CDT LABORATORY - CORE LAB Glucose 108 (H) 70 - 99 03/20/2022 [facility] mg/dL 1:11 PM CDT LABORATORY - CORE LAB Alkaline 56 40 - 150 03/20/2022 [facility] Phosphatase U/L 1:11 PM CDT LABORATORY - CORE LAB AST 22 0 - 45 U/L 03/20/2022 [facility] 1:11 PM CDT LABORATORY - CORE LAB ALT 49 0 - 50 U/L 03/20/2022 [facility] 1:11 PM CDT LABORATORY - CORE LAB Protein Total 7.3 6.8 - 8.8 03/20/2022 [facility] g/dL 1:11 PM CDT LABORATORY - CORE LAB Albumin 3.9 3.4 - 5.0 03/20/2022 [facility] g/dL 1:11 PM CDT LABORATORY - CORE LAB Bilirubin Total 1.1 0.2 - 1.3 03/20/2022 [facility] mg/dL 1:11 PM CDT LABORATORY - CORE LAB GFR Estimate 69 >60 03/20/2022 [facility] mL/min/1.7 1:11 PM CDT LABORATORY - 3m2 CORE LAB Comment: Effective July 26, 2021 eGF Rcr in adults is calculated using the 2020 CKD-EPI creatinine equation which includ es age and gender (Rosa et al., [place], DOI: 10.1056/UKMQun9873468) Specimen Anatomical Collection Method / Collection Time Recei yobany Time (Source) Location / Volume Laterality Blood STRUCTURE OF LEFT Venipuncture / 03/20/2022 12:38 0812/2021 UPPER LIMB / Unknown PM CDT 12:[address]T [address] MD LAB - BLOOD ORDERABLES Performing Organization Address City/[facility] Phon e Number [facility] LABORATORY [place] [address] 1[address] Floor Lab Core Lab [facility] LABORATORY - CORE LAB [place], [place] [address] 1[address] Floor Lab Core Lab CRP inflammation (03/20/2022 12:38 PM CDT) Analysis Performed At Path logist Time Signature CRP Inflammation <2.9 0.0 - 8.0 03/20/2022 [facility] mg/L 1:11 PM CDT LABORATORY - CORE LAB Specimen Anatomical Collection Method / Collection Time Recei yobany Time (Source) Location / Volume Laterality Blood STRUCTURE OF LEFT Venipuncture / 03/20/2022 12:38 0812/2021 UPPER LIMB / Unknown PM CDT 12:[address]T Unknown [address] MD LAB - BLOOD ORDERABLES Performing Organization Address City/[facility] Phon e Number [facility] LABORATORY [place] [address] Floor Lab Core Lab [facility] LABORATORY - CORE LAB [place], [place] [address] [facility] [address] 1st Floor Lab Core Lab Erythrocyte sedimentation rate auto (03/20/2022 12:38 PM CDT) Patholo gist Method Time Signature Erythrocyte 7 0 - 20 03/20/2022 [facility] Sedimentation Rate mm/hr 12:53 PM CDT LABORATO RY - CORE LAB Specimen Anatomical Collection Method / Collection Time Recei yobany Time (Source) Location / Volume Laterality Blood STRUCTURE OF LEFT Venipuncture / 03/20/2022 12:38 0812/2021 UPPER LIMB / Unknown PM CDT 12:[address]T Unknown [address] MD LAB - BLOOD ORDERABLES Performing Organization Address City/State/ZIP Code Phon e Number [facility] LABORATORY - CORE LAB [facility] [place] [address] [place] [facility] [address] Floor Lab Core Lab [facility] LABORATORY - CORE LAB [place], [place] [address] Clinics and Surgery [place] - [address] 1st Floor Lab Core Lab documented in this encounter Visit Diagnoses Diagnosis Intermediate uveitis of both eyes High risk medication use Encounter for long-term (current) use of other medications documented in this encounter Additional Health Concerns Assessment Noted Time PHQ-9 Depression Total Score: 5 03/15/2022 12:40 PM CD T documented as of this encounter Care Teams Forest Economist Relationship Specialty Start Date End Date Luis Ambriz PCP - General Family Medicine 02/16/22 [facility] [address] [place] [address] Bola Amor, Assigned Behavioral Health 12/04/21 [facility] Provider [address] [phone] Shaan Ramirez, Assigned Surgical Provider 12/04 [address] [place] [address], Assigned Rheumatology 02/25/22 Provider [address] [place] [address] documented as of this encounter
--- OUTSIDE RECORDS SUMMARY | 2022-06-30 12:47 | XMS_ITS | Encounter Summary ---
:1975 Author Organization [place] Address [address] [place] [address] Care Team Providers Name Role Phone ZuleymaBola chan Marcella [facility], [facility] Unavailable [phone] Shaan Ramirez MD Unavailable [phone] Luis Ambriz Primary Care Provider Richmond Lane MD Unavailable Reason for Visit Reason Onset Date Comments Refill Request 04/11/2022 methotrexate 2.5 MG tablet Encounter Details Date Type Department Care Team Description 04/11/2022 Refill [facility] Shaan Ramirez Re fill Request Clinic - Rosalino Joiner MD (methotrexate 2.5 MG [place] [address] [facility] ) [id number] [place] [address] Clin [address] [place] [address] Social History Tobacco Use Types Packs/Day Years [...] this encounter Miscellaneous Notes Telephone Encounter - Karel Gregg RN - 04/11/2022 11:35 AM CDT Note to Dr. Ramirez for review/signing off on Methotrexate Rx Pt last seen 03-20-2022 Karel Gregg RN 11:35 AM 04/11/22 Telephone Encounter - Ximena Cornell RN - 04/11/2022 11:26 AM CDT methotrexate 2.5 MG tablet Last Written Prescription Date: 01/09/2022 Last Fill Quantity: 24, # refills: 2 Last Office Visit : 03/20/2022 Future Office visit: None Shaan Ramirez MD Ophthalmology Plan/Recommendations: ?? Discussed findings with patient. With the addition of methotrexate [address] Najeraith continued use of weekly Humira and prednisone, there is significant improvement in the iritis, intermediate uveitis, macular edema. As things are doing so well off drops, we can continue to monitor without restarting them and taper oral prednisone ?? Eye pressure is normal in both eyes ?? For the prednisone, reduce to 10 mg daily until 04/16/22. Then take 1/2 pill (5 mg), until 05/05, then stop. Let me know if you notice any symptoms when prednisone tapered ?? Continue the Humira weekly and Methotrexate 15 mg (6 pills) weekly and folic acid daily ?? No steroid nor non-steroidal drops neeeded ?? We were able to make an appointment today for x-rays and blood test per Dr. Lane [facility] ?? RTC Return for Mid-late June, Tonopen, AC check, then dilate with OCT (ordered). ?? Routing refill request to provider for review/approval because: Pt needing a follow up appointment for June. Please call Pt to schedule. Also med not on protocol to fill. Ximena Cornell RN Central Triage Red Flags/Med Refills Telephone Encounter - Emily Lim LPN - 04/11/2022 8:33 AM CDT Images from the original note were not included. documented in this encounter Plan of Treatment Upcoming Encounters Date Type Specialty Care Team Description 08/11/2022 Virtual Visit Rheumatology Richmond Lane MD [address] [place] [phone] (Wo rk) 10/27/2022 Office Visit Ophthalmology Shaan Ramirez MD [address] [place] [phone] (Wo rk) documented as of this encounter Visit Diagnoses Diagnosis Intermediate uveitis of both eyes documented in this encounter Additional Health Concerns Assessment Noted Time PHQ-9 Depression Total Score: 4 03/27/2022 9:21 AM CDT documented as of this encounter Care Teams Hydraulic Bull Riveter Operator Relationship Specialty Start Date End Date Luis Ambriz PCP - General Family Medicine 02/16/22 [facility] [address] [place] [address] Bola Amor, Assigned Behavioral Health 12/04/21 [facility], [facility] Provider [address] [phone] Shaan Ramirez, Assigned Surgical Provider 12/[address] [place] [id number], Assigned Rheumatology 02/25/[address] [place] [phone] documented as of this encounter
--- OUTSIDE RECORDS SUMMARY | 2022-06-30 12:47 | XMS_ITS | Encounter Summary ---
:1975 Author Organization [place] Address [address] [place] [address] Care Team Providers Name Role Phone Bola Amor Marcella [facility], [facility] Unavailable [phone] Shaan Ramirez MD Unavailable [phone] KatinaLuis Primary Care Provider Richmond Lane MD Unavailable Encounter Details Date Type Department Care Team Description 04/17/2022 Travel Social History Tobacco Use Types Packs/Day Years Used Date Smoking Tobacco: Never Smokeless Tobacco: Never Sex Assigned at Date Recorded Female 11/23/2021 4:43 PM CDT COVID-19 Exposure Response Date Recorded In the last 10 days, have you been in contact Unable to asse ss 04/17/2022 9:32 AM CDT with someone who was confirmed or suspected to have Coronavirus/COVID-19? documented as of this encounter Plan of Treatment Upcoming Encounters Date Type Specialty Care Team Description 08/11/2022 Virtual Visit Rheumatology Richmond Lane MD [address] [place] [address] (Wo rk) 10/27/2022 Office Visit Ophthalmology Shaan Ramirez MD [address] [place] [address] (Wo rk) documented as of this encounter Visit Diagnoses Not on filedocumented in this encounter Additional Health Concerns Assessment Noted Time PHQ-9 Depression Total Score: 4 03/27/2022 9:21 AM CDT documented as of this encounter Care Teams Managing Attorney Relationship Specialty Start Date End Date Luis Ambriz PCP - General Family Medicine 02/16/22 [facility] [address] [place] [address] Bola Amor, Assigned Behavioral Health 12/04/21 [facility] Provider [address] [place], [place] [phone] Shaan Ramirez, Assigned Surgical Provider 12/04 [address] [place] [address], Assigned Rheumatology 02/25/22 Provider [address] [place], [place] [phone] documented as of this encounter
--- OUTSIDE RECORDS SUMMARY | 2022-06-30 12:47 | XMS_ITS | Encounter Summary ---
:1975 Author Organization [place] Address [address] [place] [address] Care Team Providers Name Role Phone Bola Amor Marcella [facility], [facility] Unavailable [phone] Shaan Ramirez MD Unavailable [phone] Luis Ambriz Primary Care Provider Richmond Lane MD Unavailable Reason for Visit Reason Comments Uveitis Follow-Up Encounter Details Date Type Department Care Team Description 06/20/2022 Office Visit [facility] Eye Shaan Ramirez In termediate uveitis of both eyes (Primary Dx); Clinic - Rosalino Joiner MD Cystoid macular edema of both eyes; [facility] [address] Recurrent iritis, bilateral; Building [place], [place] High risk medication use [address] [facility] [address] [phone] [place], [place] (Work) [address] [phone] Social History Tobacco Use Types Packs/Day Years Used Date Smoking Tobacco: Never Smokeless Tobacco: Never Sex Assigned at Date Recorded Female 11/23/2021 4:43 PM CDT COVID-19 Exposure Response Date Recorded In the last 10 days, have you been in contact No / Unsure 06/20/2022 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 documented as of this encounter Patient Instructions Patient InstructionsShaan Ramirez MD - 06/20/2022 10:30 AM MACHINE CLOTHING WORKER Regarding infections, these may have been related to use of immune suppressive medications in combination. Although inflammation well controlled, the risk of infections have to be weighed in with Dr. Lane regarding Methotrexate and Dr. Lomeli regarding Humira. Reasonable to consider either reducing methotrexate to 4 pills (10 mg) weekly. Perhaps the easiest change might be extending Humira to every 14 days if okay with Dr. Lomeli Eye pressure is 16,19. This can be monitored without drops to lower eye pressure. Recommend additional testing: None needed at this time. Likely these will be reordered by Dr. Lane. Continue these medications unchanged for now until hearing back from your Doctors: Humira 40 mg every 7 days, Oral methotrexate 6 pills (15 mg) weekly, Folic Acid daily. Okay to modify anytime per yourDoctors. Message me if anything comes up. If you notice changes prior to our next visit, please let me know No drops, no prednisone pills needed. INE CLOTHING WORKER documented in this encounter Progress Notes Shaan Ramirez MD - 06/20/2022 10:30 AM CST Chief Complaint/Presenting Concern: Interval History of Present Ocular Illness: Amelia Sr is a 47 year old patient who returns for follow up of her iritis and intermediate uveitis. At last visit, we made plans to taper prednisone and stay off drops. Amelia reports few floaters which are stable. Flashing lights off and on and sometimes happen when driving, but do not affect work or driving. Interval Updates to Medical/Family/Social History: 1. Had cellulitis infection in the ear. This was the second time in the same ear. There is some concern that this may have been related to MRSA. This was treated this time with IV antibiotics and pillsthereafter. 2. Ongoing yeast infection under the breast being treated with powder 3. Hidradenitis Suppurtiva doing well Relevant Review of Systems Updates: As above. No stomach issues, no nause Laboratory Testing from 05/13-05/14/22 (when in hospital): Creatinine 1.09. CBC WNL Current eye related medications: No drops, no prednisone pills. Humira 40 mg every 7 days, Oral methotrexate 6 pills (15 mg) weekly, Folic Acid daily Retina/Uveitis Imaging: OCT Spectralis Macula June 20, 2022 right eye: Normal foveal contour, no fluid. NO NFL thickening left eye: Normal foveal contour, no fluid. NO NFL thickening Assessment: 1. Intermediate uveitis of both eyes No active haze, no snow eisenberg 2. Cystoid macular edema of both eyes None in either eye 3. Recurrent iritis, bilateral Only few cells today 4. High risk medication use Humira 40 mg every 7 days, Oral methotrexate 6 pills (15 mg) weekly, Folic Acid daily Plan/Recommendations: ??? Discussed findings with patient. The inflammation is well controlled on this regimen. There is no macular edema and there are no large snowbanks. The flashing may be related to intermittent vessel inflammation. ??? Regarding infections, these may have been related to use of immune suppressive medications in combination. Although inflammation well controlled, the risk of infections have to be weighed in with Dr. Lane regarding Methotrexate and Dr. Lomeli regarding Humira. Reasonable to consider either re ducing methotrexate to 4 pills (10 mg) weekly. Perhaps the easiest change might be extending Humira to every 14 days if okay with Dr. Lomeli ??? Eye pressure is 16,19. This can be monitored without drops to lower eye pressure. ??? Recommend additional testing: None needed at this time. Likely these will be reordered by Dr. Lane. ??? Continue these medications unchanged for now until hearing back from your Doctors: Humira 40 mg every 7 days, Oral methotrexate 6 pills (15 mg) weekly, Folic Acid daily. Okay to modify anytime per your Doctors. Message me if anything comes up. If you notice changes prior to our next visit, please let me know ??? No drops, no prednisone pills needed. RTC October 27, tonopen, AC Check, dilate, then OCT and FA transit left eye (ordered) Physician Attestation Attending Physician Attestation: Complete documentation [...] plan with the patient and family m maylin present at the time of this visit. Shaan Ramirez M.D., Uveitis and Medical Retina, June 20, 2022 INE CLOTHING WORKER documented in this encounter Nursing Notes Bud Geiger - 06/20/2022 10:30 AM CST Chief Complaints and History of Present Illnesses Patient presents with ??? Uveitis Follow-Up Chief Complaint(s) and History of Present Illness(es) Uveitis Follow-Up Laterality: both eyes Onset: gradual Quality: VA gradually decreasing in both eyes Frequency: intermittently Associated symptoms: flashes. Negative for eye pain, photophobia and floaters Treatments tried: no treatments Comments Here for intermediate uveitis of both eyes. Humira qweek Methotrexate 15mg weekly Folic acid daily Bud Geiger COT 10:41 AM June 20, 2022 INE CLOTHING WORKER documented in this encounter Plan of Treatment Upcoming Encounters Date Type Specialty Care Team Description 08/11/2022 Virtual Visit Rheumatology Richmond Lane MD [address] [place] [address] (Wo rk) 10/27/2022 Office Visit Ophthalmology Shaan Ramirez MD [address] [place], [place] [address] (Wo roberto) Scheduled Orders Name Type Priority Associated Diagnoses Order S chedule Fluorescein Ophthalmology Routine Intermediate uveitis Expect ed: Angiography OU (both of both eyes 022 eyes) (Approximate), Expires: 12/18/2022 documented as of this encounter Procedures Procedure Name Priority Date/Time Associated Diagnosis Comme nts OCT RETINA Routine 06/20/2022 12:00 Intermediate uveitis Res ults for this SPECTRALIS OU (BOTH PM MACHINE CLOTHING WORKER of both eyes procedur e are in EYE) the results section. documented in this encounter Results OCT Retina Spectralis OU (both eyes) (06/20/2022 12:00 PM MACHINE CLOTHING WORKER) Narrative Shaan Ramirez MD - 06/20/2022 12:00 PM MACHINE CLOTHING WORKER Performed by: TLT . 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, bilateral High risk medication use Encounter for long-term (current) use of other medications documented in this encounter Additional Health Concerns Assessment Noted Time PHQ-9 Depression Total Score: 6 05/31/2022 9:48 AM CDT documented as of this encounter Care Teams Jewel Bearing Polisher Relationship Specialty Start Date End Date Luis Ambriz PCP - General Family Medicine 02/16/22 [facility] [address] [place] [address] Bola Amor, Assigned Behavioral Health 12/04/21 [facility] Provider [address] [id number] Shaan Ramirez, Assigned Surgical Provider 12/04 [address] [place], [place] [address] Richmond Lane, Assigned Rheumatology 02/25/22 MD Provider [address] [place], [place] [address] documented as of this encounter
--- OUTSIDE RECORDS SUMMARY | 2022-06-30 12:48 | XMS_ITS | Encounter Summary ---
:1975 Author Organization [place] Address [address] [place] [address] Care Team Providers Name Role Phone Christal Amorromancamila Naranjo [facility] Unavailable [phone] Shaan Ramirez MD Unavailable [phone] Reason for Referral Consultation (Routine) - Pending Review Specialty Diagnoses / Procedures Referred By Contact Refer red To Contact Rheumatology Diagnoses Intermediate uveitis of both eyes High risk medication use Shaan Ramirez MD [address] [place], [place] [id number] 5 Referral ID Status Reason Start Date Expiration Date Visits V isits Requested Authorized [id number] Pending 12/27/2021 12/27/2022 1 1 Review Scheduling Instructions History of Hidradenitis Suppurtiva with uveitis in spite of Humira weekly. MRI Brain normal. Please eval for any systemic dis ease and rec treatment modifications (Routine) - Pending Review Specialty Diagnoses / Procedures Referred By Contact Refer red To Contact Diagnoses High risk medication use Shaan Ramirez, Procedures Thiopurine Methyltransferase RBC [address] [place] [address] 5 Referral ID Status Reason Start Date Expiration Date Visits V isits Requested Authorized [id number] Pending 12/27/2021 12/27/2022 1 1 Review (Routine) - Pending Review Specialty Diagnoses / Procedures Referred By Contact Refer red To Contact Diagnoses High risk medication use Shaan Ramirez, Procedures CBC with Platelets & Differential MD [address] [place] [place] [address] 5 Referral ID Status Reason Start Date Expiration Date Visits V isits Requested Authorized [id number] Pending 12/27/2021 12/27/2022 1 1 Review (Routine) - Pending Review Specialty Diagnoses / Procedures Referred By Contact Refer red To Contact Diagnoses High risk medication use Shaan Ramirez MD Procedures Comprehensive metabolic panel [address] [place] [address] 5 Referral ID Status Reason Start Date Expiration Date Visits V isits Requested Authorized [id number] Pending 12/27/2021 12/27/2022 1 1 Review (Routine) - Pending Review Specialty Diagnoses / Procedures Referred By Contact Refer red To Contact Diagnoses High risk medication use Shaan Ramirez MD Procedures HIV Antigen Antibody Combo [address] [place] [address] 5 Referral ID Status Reason Start Date Expiration Date Visits V isits Requested Authorized [id number] Pending 12/27/2021 12/27/2022 1 1 Review (Routine) - Pending Review Specialty Diagnoses / Procedures Referred By Contact Refer red To Contact Diagnoses High risk medication use Shaan Ramirez MD Procedures Hepatitis C antibody [address] [place] [address] 5 Referral ID Status Reason Start Date Expiration Date Visits V isits Requested Authorized [id number] Pending 12/27/2021 12/27/2022 1 1 Review (Routine) - Pending Review Specialty Diagnoses / Procedures Referred By Contact Refer red To Contact Diagnoses High risk medication use Shaan Ramirez MD Procedures Hepatitis B surface antigen [address] [place], [place] [address] Referral ID Status Reason Start Date Expiration Date Visits V isits Requested Authorized [id number] Pending 12/27/2021 12/27/2022 1 1 Review Reason for Visit Reason Comments Uveitis Follow-Up Pt here today for 1 month Uv eitis follow up.States bumped up prednisone to 20 mg due to c urrent flare up.Pt states vision still like looking through water i n LE, RE has general blurriness.Ocular meds = prednisoLONE acetate (PRED FORTE) 1 % ophthalmic suspension -1 gtts Q BID BEKetorolac 1 gtts QID BE Prednisone 20 mg PO dailyLaVergne FITO Perla 10:02 AM 12/27/2021 Encounter Details Date Type Department Care Team Description 12/27/2021 Office Visit [facility] Eye Shaan Ramirez In termediate uveitis of both eyes (Primary Dx); Clinic - Rosalino Joiner MD Recurrent iritis, bilateral; [facility] Kinsey [address] [facility] [address] Cystoid macular edema of both eyes; [place], [place] Heterochromia of iris of lef t eye; [address] [facility] [id number] High risk medication use [facility] Clin 9A [phone] [place], [place] (Work) [address] [phone] Social History Tobacco Use Types Packs/Day Years [...] Patient Instructions Patient InstructionsShaan Ramirez MD - 12/27/2021 11:57 AM CDT Recommend additional testing to consider steroid sparing therapy: HIV, HBV, HCV, CBC, CMP, TMPT. No test given tubal surgery. We discussed adding an oral immune suppressant to help us controlinflammation without the need for as much steroid. We discussed Methotrexate, Mycophenolate, and Azathioprine. At this time, Amelia is interested in Methotrexate. Once we get the labs done, we can startthis new medication. We will ask Dr. Lomeli if he has any preferences for mediations We also discussed Rheumatology consultation. They will call you to get this set up. MRI brain was without signs of demyelinating disease, so no other body imaging needed Continue these medications: Humira 40 mg weekly For the prednisone, continue 20 mg daily until we have a plan with next steps of medications Continue Ketorolac (patel top) drop 4x/day in each eye For the steroid drops (Prednisolone) increase to 4x/day in each eye documented in this encounter Progress Notes Shaan Ramirez MD - 12/27/2021 9:30 AM CDT Chief Complaint/Presenting Concern: Uveitis follow up Interval History of Present Ocular Illness: Amelia Sr is a 46 year old patient who returns for follow up of her recurrent iritis, intermediate uveitis, and cystoid macular edema of each eye. At last visit, we recommended MRI Brain as well as adding a course of oral prednisone Ms. Sr notes things were doing better on more prednisone, but when tapering down the vision started getting blurrier, so we sent message to each other about going back up to 20 mg daily. Things are better, but still water droplet sensation left eye and blurry vision in the left eye and somewhat right eye. Interval Updates to Medical/Family/Social History: Humira restarted weekly two weeks ago. MRI brain and orbits without evidence of demyelinating disease. Relevant Review of Systems Updates: No new health changes, no coughs/colds, mild back pain Laboratory Testing: November 2021: Treponema VDRL negative Current eye related medications: Restarted Humira 40 mg every week (two doses), prednisone 20 mg daily, Prednisolone 2x/day in each eye, Ketorolac 4x/day each eye Retina/Uveitis Imaging: OCT Spectralis Macula December 27, 2021 right eye: Persistent macular edema, compared to 11/28/21 outside scan in [place] left eye: Persistent although slightly improved macular edema vs 11/28/21 outside scan Assessment: 1. Intermediate uveitis of both eyes Still active in each eye 2. Recurrent iritis, bilateral Persistent even after oral prednisone. 3. Cystoid macular edema of both eyes Persistent in each eye with the left eye more affected when compared to outside scan. 4. Heterochromia of iris of left eye Since 5. High risk medication use Humira 40 mg weekly restarted two weeks ago, prednisone 20 mg daily Plan/Recommendations: ??? Discussed findings with patient and her . The uveitis is essentially unchanged even with the addition of prednisone for few weeks. The macular edema is also persistent in both eyes with the left eye more severely affected. We discussed that long-term chronic prednisone use is not ideal, so we recommend additional testing to consider adding another therapy to weekly Humira ??? We did not discuss today but steroid injections to the eyes could also be considered however canbe associated with risk of cataract development and eye pressure elevation. Given that both eyes areaffected, a systemic therapy would be more advantageous ??? Eye pressure is normal in each eye ??? Recommend additional testing to consider steroid sparing therapy: HIV, HBV, HCV, CBC, CMP, TMPT.No test given tubal surgery. We discussed adding an oral immune suppressant to help us control inflammation without the need for as much steroid. We discussed Methotrexate, Mycophenolate, andAzathioprine. At this time, Amelia is interested in Methotrexate. Once we get the labs done, we can start this new medication. We will ask Dr. Lomeli if he has any preferences for mediations ??? We also discussed Rheumatology consultation help us determine if there are any other underlying systemic inflammatory conditions which may have predisposed to this uveitis (hidradenitis suppurativais not typically a strong risk factor for uveitis, and also unusual that the uveitis flared even on weekly Humira). They will call you to get this set up ??? MRI brain was without signs of demyelinating disease, so no other body imaging needed ??? Continue these medications: Humira 40 mg weekly ??? For the prednisone, continue 20 mg daily until we have a plan with next steps of medications ??? Continue Ketorolac (patel top) drop 4x/day in each eye ??? For the steroid drops (Prednisolone) increase to 4x/day in each eye until next visit RTC Dr. Francisca Lomeli in Dermatology [facility] late January rikki, RUCHI check, the dilate with OCT (Ordered) Physician Attestation Attending Physician Attestation: Complete documentation [...] Shaan Ramirez M.D., Uveitis and Medical Retina, December 27, 2021 documented in this encounter Nursing Yumiko Bird - 12/27/2021 9:30 AM CDT Chief Complaints and History of Present Illnesses Patient presents with ??? Uveitis Follow-Up Pt here today for 1 month Uveitis follow up. States bumped up prednisone to 20 mg due to current flare up. Pt states vision still like looking through water in LE, RE has general blurriness. Ocular meds = prednisoLONE acetate (PRED FORTE) 1 % ophthalmic suspension -1 gtts Q BID BE Ketorolac 1 gtts QID BE Prednisone 20 mg PO daily FITO Padron 10:02 AM 12/27/2021 Chief Complaint(s) and History of Present Illness(es) Uveitis Follow-Up Laterality: both eyes Onset: gradual Onset: months ago Severity: moderate Frequency: episodically Course: gradually worsening Associated symptoms: redness, flashes (white flashes - not new), floaters (new floaters - started about a week ago - larger) and foreign body sensation (gritty in LE nasal corner). Negative for eye pain, swelling and burning Treatments tried: eye drops Pain scale: 0/10 Comments: Pt here today for 1 month Uveitis follow up. States bumped up prednisone to 20 mg due to current flare up. Pt states vision still like looking through water in LE, RE has general blurriness. Ocular meds = prednisoLONE acetate (PRED FORTE) 1 % ophthalmic suspension -1 gtts Q BID BE Ketorolac 1 gtts QID BE Prednisone 20 mg PO daily FITO Padron 10:02 AM 12/27/2021 Comments documented in this encounter Plan of Treatment Upcoming Encounters Date Type Specialty Care Team Description 08/11/2022 Virtual Visit Rheumatology Richmond Lane MD [address] [place] [address] (Wo rk) 10/27/2022 Office Visit Ophthalmology Shaan Ramirez MD [address] [place] [address] (Wo rk) Scheduled Orders Name Type Priority Associated Diagnoses Order S chedule Hepatitis B surface antigen Lab Routine High risk med ication Expected: 12/27/2021 use (Approximate), Expires: 2021 Hepatitis C antibody Lab Routine High risk medication Expected: 12/27/2021 use (Approximate), Expires: 2021 HIV Antigen Antibody Combo Lab Routine High risk medi cation Expected: 12/27/2021 use (Approximate), Expires: 2021 Thiopurine Methyltransferase Lab Routine High risk me dication Expected: 12/27/2021 RBC use (Approximate), Expires: 2021 Scheduled Referrals Name Type Priority Associated Diagnoses Order S chedule Adult Rheumatology Referral Routine Intermediate uveitis o f Expected: Catalog Library Assistant Referral both eyes 12/27/2021, High risk medication use Exp ires: 06/29/2022 documented as of this encounter Procedures Procedure Name Priority Date/Time Associated Comments Diagnosis OCT RETINA Routine 12/27/2021 11:23 AM Cystoid macular Resul ts for this SPECTRALIS OU (BOTH CDT edema of both eyes pr ocedure are in EYE) the results section. documented in this encounter Results OCT Retina Spectralis OU (both eyes) (03/20/2022 12:15 PM CDT) Shaan Rocha MD - 03/20/2022 12:15 PM CDT Performed [...] ??Resolved macular edema Shaan Ramirez MD OPHTHALMOLOGY (ABNORMAL) CBC with Platelets & Differential (12/30/2021 9:15 AM CDT) [facility] Method Time Signature WBC Count 6.97 5.00 [...] Organization Address City/State/ZIP Code Phon e Number BREJUAN J PFT NON-INTERFACED (ONBASE SCANS) (ABNORMAL) Comprehensive metabolic [...] e Number BREEZE PFT NON-INTERFACED (ONBASE SCANS) OCT Retina Spectralis OU (both eyes) (12/27/2021 11:23 AM CDT) Shaan Rocha MD - 12/27/2021 11:23 AM CDT Performed by: wt . Patient cooperation: Reliable . Right Eye Reliability of the test: Good . Findings normal/abnormal: Abnormal OCT . Interpretation: Retinal disease . Plan: Adjust medications . Interval: Same . Left Eye Reliability of the test: Good . Findings normal/abnormal: Abnormal OCT . Interpretation: Retinal disease . Plan: Adjust medications . Interval: Same . 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 High risk medication use Encounter for long-term (current) use of other medications High risk medication use Encounter for long-term (current) use of other medications Intermediate uveitis of both eyes - Prim mounika Recurrent iritis, 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
--- OUTSIDE RECORDS SUMMARY | 2022-06-30 12:48 | XMS_ITS | Encounter Summary ---
:1975 Author Organization [place] Address [address] [place] [address] Care Team Providers Name Role Phone Unavailable Primary Care Provider Unavailable Encounter Details Date Type Department Care Team Description 07/25/2018 Travel Social History Tobacco Use Types Packs/Day Years Used Date Smoking Tobacco: Never Assessed Sex Assigned at Date Recorded Female 11/23/2021 4:43 PM CDT documented as of this encounter Plan of Treatment Upcoming Encounters Date Type Specialty Care Team Description 08/11/2022 Virtual Visit Rheumatology Richmond Lane MD [address] [place], [place] [id number] (Wo rk) 10/27/2022 Office Visit Ophthalmology Shaan Ramirez MD [address] [place] [address] (Wo rk) documented as of this encounter Visit Diagnoses Not on filedocumented in this encounter Additional Health Concerns Assessment Noted Time PHQ-9 Depression Total Score: 5 06/17/2018 9:03 AM MOTHER BABY RN documented as of this encounter
--- OUTSIDE RECORDS SUMMARY | 2022-06-30 12:48 | XMS_ITS | Encounter Summary ---
:1975 Author Organization [facility] Address [address] [place] [address] Care Team Providers Name Role Phone Unavailable Primary Care Provider Unavailable Encounter Details Date Type Department Care Team Description 10/28/2018 Travel Social History Tobacco Use Types Packs/Day Years Used Date Smoking Tobacco: Never Assessed Sex Assigned at Date Recorded Female 11/23/2021 4:43 PM CDT documented as of this encounter Plan of Treatment Upcoming Encounters Date Type Specialty Care Team Description 08/11/2022 Virtual Visit Rheumatology Richmond [address] MD [address] [place], [place] [phone] (Wo rk) 10/27/2022 Office Visit Ophthalmology Shaan Ramirez MD [address] [place] [address] (Wo rk) documented as of this encounter Visit Diagnoses Not on filedocumented in this encounter Additional Health Concerns Assessment Noted Time PHQ-9 Depression Total Score: 5 06/17/2018 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
--- OUTSIDE RECORDS SUMMARY | 2022-06-30 12:48 | XMS_ITS | Encounter Summary ---
:1975 Author Organization [place] Address [address] [place] [address] Care Team Providers Name Role Phone Bola Amor, [facility] Unavailable [phone] Shaan Ramirez MD Unavailable [phone] Encounter Details Date Type Department Care Team Description 12/05/2021 Travel Social History Tobacco Use Types Packs/Day Years Used Date Smoking Tobacco: Never Smokeless Tobacco: Never Sex Assigned at Date Recorded Female 11/23/2021 4:43 PM CDT COVID-19 Exposure Response Date Recorded In the last 10 days, have you been in contact Unable to asse ss 12/05/2021 4:57 PM CDT with someone who was confirmed or suspected to have Coronavirus/COVID-19? documented as of this encounter Plan of Treatment Upcoming Encounters Date Type Specialty Care Team Description 08/11/2022 Virtual Visit Rheumatology [address] MD [address] [place] [address] (Wo rk) 10/27/2022 Office Visit Ophthalmology Shaan Ramirez MD [address] [place] [address] (Wo rk) documented as of this encounter Visit Diagnoses Not on filedocumented in this encounter Additional Health Concerns Assessment Noted Time PHQ-9 Depression Total Score: 6 11/24/2021 7:04 AM CDT documented as of this encounter Care Teams Restaurant Associate Relationship Specialty Start Date End Date Bola Amor LMFT, Assigned Behavioral Health [facility] Provider [address] [place], [place] [phone] Shaan Ramirez MD Assigned Surgical Provider 12/04/[address] [place] [address] [id number] documented as of this encounter
--- OUTSIDE RECORDS SUMMARY | 2022-06-30 12:48 | XMS_ITS | Encounter Summary ---
:1975 Author Organization [place] Address [address] [place] [address] Care Team Providers Name Role Phone Bola Amor, [facility] Unavailable [phone] Shaan Ramirez MD Unavailable [phone] Encounter Details Date Type Department Care Team Description 12/24/2021 Travel Social History Tobacco Use Types Packs/Day Years Used Date Smoking Tobacco: Never Smokeless Tobacco: Never Sex Assigned at Date Recorded Female 11/23/2021 4:43 PM CDT COVID-19 Exposure Response Date Recorded In the last 10 days, have you been in contact with No / Unsu re 12/24/2021 9:23 PM CDT someone who was confirmed or suspected to have Coronavirus/COVID-19? documented as of this encounter Plan of Treatment Upcoming Encounters Date Type Specialty Care Team Description 08/11/2022 Virtual Visit Rheumatology [address] MD [address] [place] [address] (Wo rk) 10/27/2022 Office Visit Ophthalmology Shaan Ramirez MD [address] [place] [address] (Wo roberto) documented as of this encounter Visit Diagnoses Not on filedocumented in this encounter Additional Health Concerns Assessment Noted Time PHQ-9 Depression Total Score: 10 12/07/2021 12:04 PM C DT documented as of this encounter Care Teams Certified Hearing Instrument Dispenser Relationship Specialty Start Date End Date Bola Amor LMFT, Assigned Behavioral Health [facility] Provider [address] [place] [id number] Shaan Ramirez MD Assigned Surgical Provider 12/04/[address] [place] [address] [id number] documented as of this encounter
--- OUTSIDE RECORDS SUMMARY | 2022-06-30 12:48 | XMS_ITS | Encounter Summary ---
:1975 Author Organization [place] Address [address] [place] [address] Care Team Providers Name Role Phone Unavailable Primary Care Provider Unavailable Encounter Details Date Type Department Care Team Description 08/26/2018 Travel Social History Tobacco Use Types Packs/Day Years Used Date Smoking Tobacco: Never Assessed Sex Assigned at Date Recorded Female 11/23/2021 4:43 PM CDT documented as of this encounter Plan of Treatment Upcoming Encounters Date Type Specialty Care Team Description 08/11/2022 Virtual Visit Rheumatology Richmond [address] MD [address] [place], [place] [phone] (Wo rk) 10/27/2022 Office Visit Ophthalmology Shaan Ramirez MD [address] [place] [address] (Wo rk) documented as of this encounter Visit Diagnoses Not on filedocumented in this encounter Additional Health Concerns Assessment Noted Time PHQ-9 Depression Total Score: 5 06/17/2018 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
--- OUTSIDE RECORDS SUMMARY | 2022-06-30 12:48 | XMS_ITS | Encounter Summary ---
:1975 Author Organization [place] [facility] Address [address] [place] [address] Care Team Providers Name Role Phone Unavailable Primary Care Provider Unavailable Encounter Details Date Type Department Care Team Description 12/16/2018 Travel Social History Tobacco Use Types Packs/Day Years Used Date Smoking Tobacco: Never Assessed Sex Assigned at Date Recorded Female 11/23/2021 4:43 PM CDT documented as of this encounter Plan of Treatment Upcoming Encounters Date Type Specialty Care Team Description 08/11/2022 Virtual Visit Rheumatology [address] MD [address] [place], [place] [phone] (Wo rk) 10/27/2022 Office Visit Ophthalmology Shaan Ramirez MD [address] [place] [address] (Wo rk) documented as of this encounter Visit Diagnoses Not on filedocumented in this encounter Additional Health Concerns Assessment Noted Time PHQ-9 Depression Total Score: 5 06/17/2018 9:03 AM INTERNATIONAL ORGANIZER documented as of this encounter
--- OUTSIDE RECORDS SUMMARY | 2022-06-30 12:48 | XMS_ITS | Encounter Summary ---
:1975 Author Organization [facility] Address [address] [place] [address] Care Team Providers Name Role Phone Unavailable Primary Care Provider Unavailable Encounter Details Date Type Department Care Team Description 10/01/2018 Travel Social History Tobacco Use Types Packs/Day Years Used Date Smoking Tobacco: Never Assessed Sex Assigned at Date Recorded Female 11/23/2021 4:43 PM CDT documented as of this encounter Plan of Treatment Upcoming Encounters Date Type Specialty Care Team Description 08/11/2022 Virtual Visit Rheumatology [address] MD [address] [place], [place] [phone] (Wo rk) 10/27/2022 Office Visit Ophthalmology Shaan Ramirez MD [address] [place] [address] (Wo rk) documented as of this encounter Visit Diagnoses Not on filedocumented in this encounter Additional Health Concerns Assessment Noted Time PHQ-9 Depression Total Score: 5 06/17/2018 9:03 AM HISTORIC SITES 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
--- OUTSIDE RECORDS SUMMARY | 2022-06-30 12:48 | XMS_ITS | Encounter Summary ---
:1975 Author Organization [facility] Address [address] [place] [address] Care Team Providers Name Role Phone Unavailable Primary Care Provider Unavailable Encounter Details Date Type Department Care Team Description 09/09/2018 Travel Social History Tobacco Use Types Packs/Day Years Used Date Smoking Tobacco: Never Assessed Sex Assigned at Date Recorded Female 11/23/2021 4:43 PM CDT documented as of this encounter Plan of Treatment Upcoming Encounters Date Type Specialty Care Team Description 08/11/2022 Virtual Visit Rheumatology [address] MD [address] [place], [place] [phone] (Wo rk) 10/27/2022 Office Visit Ophthalmology Shaan Ramirez MD [address] [place] [address] (Wo rk) documented as of this encounter Visit Diagnoses Not on filedocumented in this encounter Additional Health Concerns Assessment Noted Time PHQ-9 Depression Total Score: 5 06/17/2018 9:03 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
--- OUTSIDE RECORDS SUMMARY | 2022-06-30 12:48 | XMS_ITS | Encounter Summary ---
:1975 Author Organization [facility] Address [address] [place] [address] Care Team Providers Name Role Phone Unavailable Primary Care Provider Unavailable Reason for Referral Diagnostic Imaging MRI (Routine) - Pending Review Specialty Diagnoses / Procedures Referred By Contact Refer red To Contact Diagnoses Intermediate uveitis of both eyes High risk medication use Shaan Ramirez MD Procedures MR Orbit w/o Contrast [address] [place], [place] [address] Referral ID Status Reason Start Date Expiration Date Visits V isits Requested Authorized [id number] Pending 11/29/2021 11/29/2022 1 1 Review Diagnostic Imaging MRI (Routine) - Pending Review Specialty Diagnoses / Procedures Referred By Contact Refer red To Contact Diagnoses Intermediate uveitis of both eyes High risk medication use Shaan Ramirez MD Procedures MR Brain w/o & w Contrast [address] [place], [place] [address] Referral ID Status Reason Start Date Expiration Date Visits V isits Requested Authorized [id number] Pending 11/29/2021 11/29/2022 1 1 Review Reason for Visit Reason Comments Uveitis Evaluation Encounter Details Date Type Department Care Team Description 11/29/2021 Office Visit [facility] Eye Shaan Ramirez In termediate uveitis of both eyes (Primary Dx); Clinic - Rosalino Joiner MD Cystoid macular edema of both eyes; Raza Kinsey [address] Recurrent iritis, bilateral; Building [place], [place] Heterochromia of iris of lef t eye; [address] [place] [address] Hidradenitis suppurativa; Clin 9A [phone] High risk medication use [place], [place] (Work) [id number] [phone] Social History Tobacco Use Types Packs/Day Years Used Date Smoking Tobacco: Never Smokeless Tobacco: Never Sex Assigned at Date Recorded Female 11/23/2021 4:43 PM CDT COVID-19 Exposure Response Date Recorded In the last 10 days, have you been in contact with No / Unsu re 11/29/2021 9:23 AM CDT someone who was confirmed or suspected to have Coronavirus/COVID-19? documented as of this encounter Patient Instructions Patient InstructionsShaan Ramirez MD - 11/29/2021 12:00 PM CDT Continue these medications: Prednisolone 2x/day in each eye Okay to start NSAID drop per your other Doctor Add a cousre of oral predinsone Take 3 pills (30 mg) each AM with food for 1 week, then 2 pills (20 mg) each AM with food for one week, then 1 pill (10 mg) each AM with food until next visit We will call [facility] to get the MRI and then you can restart the Humira documented in this encounter Progress Notes Shaan Ramirez MD - 11/29/2021 9:30 AM CDT Chief Complaint/Presenting Concern: Uveitis evaluation History of Present Illness: Amelia Sr is a 46 year old patient who presents for evaluation of iritis from Dr. Lewis The uveitis started in July 2021 and has been treated with drops. Since the onset things have gotten better with drops but things have recurred with tapering drops. No oral medications have been used. She had labs with her PCP in October 2021 which did not identify any sources of inflammation in thebody. Ms. Sr saw Dr. Lewis yesterday who did a scan of the retina which showed some possible swelling in the left eye due to reduced vision. She notices like Ms. Sr reports the drops are helping but she does have floaters in the left eye and flashing lights in each eye. No pain in either eye. Additional Ocular History: 1. Wears glasses 2. No prior uveitis, eye injuries, eye surgeries 3. Iris heterochromia left eye Relevant Past Medical/Family/Social History: 1. Type 2 Diabetes 2. Cellulitis left outer ear recently resolved 3. Hypertension 4. Humira for Hidradenitis Suppurtiva. There was a gap in treatment over the last month to see if the uveitis would get better. 5. Depression on medications and ADHD 6. Some eczema on tips of ear which clears up treated with a type of immune suppressant cream. This course started around July No family history of uveitis. Mom had Multiple Sclerosis and Optic Neuritis. No recent travel at onset of uveitis. Had a cat which was at 1 year old. Was checked for Toxoplasmosis. Roommate with MRSA. 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 Relevant Review of Systems:No hearing issues. No weakness/dizziness/numbness. Some spots have developed around some hair follicles. Laboratory Testing reviewed October 2021: Normal/negative; Quantiferon, Lyme, Bartonella, toxoplasma, CMV PCR, CBC, CMP within normal limits other than slightly elevated ALT, CRP, HLA-B27, ROBERTO, LEE, CCP, myeloperoxidase, proteinase3 Current eye related medications: Prednisolone 2x/day each eye Retina/Uveitis Imaging: Optos [facility] November 29, 2021 right eye: Foveal hyperfluorescence, disc, peripheral fluorescence. left eye: Slightly delayed choroidal transit. Early foveal hyperfluorescence, disc, peripheral fluorescence. Outside OCT scan from yesterday reviewed showing cystoid macular edema in both eyes with the left eye more affected than the right eye Assessment: 1. Intermediate uveitis of both eyes With fine vitreous haze in both eyes and one large snowball in the left eye 2. Cystoid macular edema of both eyes Seen by OCT yesterday and confirmed on angiography today 3. Recurrent iritis, bilateral Active in both eyes with the left eye more affected 4. Heterochromia of iris of left eye Since , not likely related to iritis 5. Hidradenitis suppurativa Slightly worse off Humira for the last month 6. High risk medication use Humira for at least the last 2 to 3 years although currently off for the last month Plan/Recommendations: ??? Discussed findings with patient. The iritis is active in the front of both eyes but exam and additional imaging also confirms intermediate uveitis and cystoid macular edema of both eyes. This may partly explain the incomplete resolution of the uveitis as typically prednisolone is not able to completely treat the intermediate uveitis or macular edema ??? Extensive laboratory testing has thus far been unrevealing for systemic causes of infections or inflammatory diseases which could be related to the uveitis. It is possible that the uveitis may haveworsened over the last month without Humira, as this medication is often used specifically to treat uveitis. ??? The reduction in visual acuity particularly in the left eye is most likely related to the cystoid macular edema. As below we will continue steroid eyedrops but add NSAID drop per Dr. Lewis and a course of oral prednisone ??? Eye pressure is normal in both eyes ??? Recommend additional diagnostic testing: Treponema ??? Continue these medications: Prednisolone 2x/day in each eye ??? Okay to start NSAID drop per your other Doctor ??? Add a cousre of oral predinsone Take 3 pills (30 mg) each AM with food for 1 week, then 2 pills (20 mg) each AM with food for one week, then 1 pill (10 mg) each AM with food until next visit ??? Recommend MRII brain and orbits. There is no evidence of acute optic neuritis, but the sudden onset of bilateral uveitis can sometimes be seen in demyelinating disease. Given the prior use of Humira with likely plans to resume, we will proceed with this test to ensure no evidence of demyelinating d isease as this could be worsened with an anti-TNF medication such as Humira RTC 3-4 weeks tonopen, AC check, then dilate with OCT (ordered) Physician Attestation Attending Physician Attestation: Complete [...] and management plan with the patient and any family members present at the time of the visit. Shaan Ramirez M.D., Uveitis and Medical Retina, November 29, 2021 documented in this encounter Nursing Notes Mirta Nathan - 11/29/2021 9:30 AM CDT Chief Complaints and History of Present Illnesses Patient presents with ??? Uveitis Evaluation Chief Complaint(s) and History of Present Illness(es) Uveitis Evaluation Laterality: both eyes Onset: gradual Onset: months ago Quality: Blurry va each eye with flare up Associated symptoms: glare (with flare ups), flashes (ou) and floaters (in the OS). Negative for dryness, redness, tearing and photophobia Treatments tried: eye drops Pain scale: 0/10 Comments Here for iridocyclitis each eye PF BID each eye BS does not check A1C 6.2 10/2021 Mirta Nathan COT 9:40 AM November 29, 2021 documented in this encounter Plan of Treatment Upcoming Encounters Date Type Specialty Care Team Description 08/11/2022 Virtual Visit Rheumatology Richmond Lane MD [address] [place] [address] (Wo rk) 10/27/2022 Office Visit Ophthalmology Shaan Ramirez MD [address] [place] [address] (Wo roberto) Scheduled Orders Name Type Priority Associated Diagnoses Order S chedule Treponema Abs w Reflex Lab Routine Intermediate uveit is of Expected: 11/29/2021 to RPR and Titer both eyes (Approximat e), Expires: 2021 documented as of this encounter Procedures Procedure Name Priority Date/Time Associated Diagnosis Comme nts FLUORESCEIN Routine 11/29/2021 10:11 Intermediate uveitis Res ults for this ANGIOGRAPHY OU (BOTH PM CDT of both eyes procedu re are in EYES) the results section. documented in this encounter Results Fluorescein Angiography OU (both eyes) (11/29/2021 10:11 PM CDT) Shaan Rocha MD - 11/29/2021 10:11 PM CDT Patient cooperation: Reliable . Right Eye Reliability of the test: Good . Interpretation: Abnormal . Plan: Adjust medications . Interval: Initial . Left Eye Reliability of the test: Good . Interpretation: Abnormal . Plan: Adjust medications . Interval: Initial . Notes Opt[facility] November 29, 2021 right eye: Foveal hyperfluorescence, dis c, peripheral fluorescence. left eye: Slightly delayed choroidal tra nsit. Early foveal hyperfluorescence, disc, peripheral fluo rescence. 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
--- OUTSIDE RECORDS SUMMARY | 2022-06-30 12:48 | XMS_ITS | Encounter Summary ---
:1975 Author Organization [facility] Address [address] [place] [address] Care Team Providers Name Role Phone Unavailable Primary Care Provider Unavailable Encounter Details Date Type Department Care Team Description 11/28/2021 Travel Social History Tobacco Use Types Packs/Day Years Used Date Smoking Tobacco: Never Assessed Sex Assigned at Date Recorded Female 11/23/2021 4:43 PM CDT COVID-19 Exposure Response Date Recorded In the last 10 days, have you been in contact with No / Unsu re 11/28/2021 2:38 PM CDT someone who was confirmed or suspected to have Coronavirus/COVID-19? documented as of this encounter Plan of Treatment Upcoming Encounters Date Type Specialty Care Team Description 08/11/2022 Virtual Visit Rheumatology [address] MD [address] [place] [address] (Wo rk) 10/27/2022 Office Visit Ophthalmology Shaan Ramirez MD [address] [place] [address] (Wo rk) documented as of this encounter Visit Diagnoses Not on filedocumented in this encounter Additional Health Concerns Assessment Noted Time PHQ-9 Depression Total Score: 6 11/24/2021 7:04 AM CDT documented as of this encounter
--- OUTSIDE RECORDS SUMMARY | 2022-06-30 12:48 | XMS_ITS | Encounter Summary ---
:1975 Author Organization [facility] Address [address] [place] [address] Care Team Providers Name Role Phone Unavailable Primary Care Provider Unavailable Encounter Details Date Type Department Care Team Description 11/29/2021 Travel Social History Tobacco Use Types Packs/Day [...] Virtual Visit Rheumatology Richmond Lane MD [address] [place] [address] (Wo rk) 10/27/2022 Office Visit Ophthalmology Shaan Ramirez MD [address] [place] [address] (Wo rk) documented as of this encounter Visit Diagnoses Not on filedocumented in this encounter Additional Health Concerns Assessment Noted Time PHQ-9 Depression Total Score: 6 11/24/2021 7:04 AM CDT documented as of this encounter
--- OUTSIDE RECORDS SUMMARY | 2022-06-30 12:49 | XMS_ITS | Clinical Summary ---
:1975 Author Organization [employer] [facility] [place] [address] Care Team Providers Name Role Phone Luis Ambriz MD Primary Care Provider Allergies Active Allergy Reactions Severity Noted Date Comments Lavender Oil Cough 11/28/2014 Hydrocodone-Acetaminophen Hives 11/28/2014 Medications Medication Sig Dispensed Refills Start End Status Date Date spironolactone Take 50 mg by 1 A ctive (ALDACTONE) 50 mg mouth 2 times 9 tabletIndications: daily. hidradentits Indications: suppurativa hidradentits suppurativa diclofenac 1 % CHIKI EXT AA BID 0 Active topical (VOLTAREN) PRN 9 gel buPROPion Take 150 mg by 0 Activ e (WELLBUTRIN SR) 150 mouth 2 times 1 mg daily. Sustained-Release tablet Humira,CF, Pen 40 Takes weekly or 0 Active mg/0.4 mL pnkt as directed 1 metoprolol Take 50 mg by 0 Activ e succinate (TOPROL mouth once 1 XL) 50 mg daily. sustained-release tablet diclofenac enteric Take 1 Tablet 0 Active coated (VOLTAREN) (50 mg) by mouth 1 50 mg tablet once daily. metFORMIN TAKE 1 TO 2 0 Active (GLUCOPHAGE XR) 500 TABLETS BY MOUTH 1 mg Extended-Release DAILY tablet Accu-Chek Guide 4 times daily. 0 Active test strips strip 1 Accu-Chek Softclix 4 times daily. 0 Active Lancets 1 Accu-Chek Guide USE DIRECTED 0 Active Glucose Meter 1 prednisoLONE SHAKE LIQUID AND 0 Active acetate 1% INSTILL 1 DROP 2 ophthalmic IN BOTH EYES (ECONOPRED PLUS, EVERY HOUR PRED FORTE, OMNIPRED) suspension methylphenidate HCl Take 1.5 tablets 45 Tablet 0 Active (Ritalin) 10 mg (15mg) by mouth 2 tabletIndications: once daily in Attention deficit the afternoon as hyperactivity needed for ADHD. disorder (ADHD), predominantly inattentive type methylphenidate HCl Take 1 Tablet 30 Tablet 0 Active (Concerta) 54 mg (54 mg) by mouth 2 Extended-Release once daily. tabletIndications: Attention deficit hyperactivity disorder (ADHD), predominantly inattentive type venlafaxine Take 1 Capsule 90 Capsule 1 Ac tive (EFFEXOR XR) 150 mg (150 mg) by 2 Extended-Release mouth once daily capsuleIndications: with a meal. Mild episode of recurrent major depressive disorder (HC) ARIPiprazole Take 1 Tablet (5 90 Tablet 1 Active (ABILIFY) 5 mg mg) by mouth 2 tabletIndications: once daily. Mild episode of recurrent major depressive disorder (HC) methylphenidate HCl Take 1 Tablet 30 Tablet 0 Active (Concerta) 54 mg (54 mg) by mouth 2 022 Extended-Release once daily. tabletIndications: Attention deficit hyperactivity disorder (ADHD), predominantly inattentive type methylphenidate HCl Take 1 Tablet 30 Tablet 0 Active (Concerta) 54 mg (54 mg) by mouth 2 023 Extended-Release once daily. tabletIndications: Attention deficit hyperactivity disorder (ADHD), predominantly inattentive type methylphenidate HCl Take 1 Tablet 30 Tablet 0 Active (Concerta) 54 mg (54 mg) by mouth 3 Extended-Release once daily. tabletIndications: Attention deficit hyperactivity disorder (ADHD), predominantly inattentive type methylphenidate HCl Take 1.5 tablets 45 Tablet 0 Active (Ritalin) 10 mg (15mg) by mouth 2 tabletIndications: once daily in Attention deficit the afternoon as hyperactivity needed for ADHD. disorder (ADHD), predominantly inattentive type methylphenidate HCl Take 1.5 tablets 45 Tablet 0 Active (Ritalin) 10 mg (15mg) by mouth 2 tabletIndications: once daily in Attention deficit the afternoon as hyperactivity needed for ADHD. disorder (ADHD), predominantly inattentive type methylphenidate HCl Take 1.5 tablets 45 Tablet 0 Active (Ritalin) 10 mg (15mg) by mouth 3 tabletIndications: once daily in Attention deficit the afternoon as hyperactivity needed for ADHD. disorder (ADHD), predominantly inattentive type methotrexate Take 15 mg by 0 Act efren (RHEUMATREX) 2.5 mg mouth. Take 15 2 022 tablet mg by mouth. ARIPiprazole Take 1 Tablet (5 90 Tablet 1 Discontinued (ABILIFY) 5 mg mg) by mouth 2 022 (R eorder tabletIndications: once daily. (E-cancel not Mild episode of sent )) recurrent major depressive disorder (HC) venlafaxine Take 1 Capsule 90 Capsule 1 Di scontinued (EFFEXOR XR) 150 mg (150 mg) by 2 022 (Reorder Extended-Release mouth once daily (E-cancel not capsuleIndications: with a meal. sent)) Mild episode of recurrent major depressive disorder (HC) methylphenidate HCl Take 1 Tablet 30 Tablet 0 Discontinued (Concerta) 54 mg (54 mg) by mouth 2 022 (Duplicate Extended-Release once daily. t herapy tabletIndications: ( E-cancel not Attention deficit se nt)) hyperactivity disorder (ADHD), predominantly inattentive type methylphenidate HCl Take 1.5 tablets 45 Tablet 0 23/09 Discontinued (Ritalin) 10 mg (15mg) by mouth 2 022 (Duplicate tabletIndications: once daily in therapy Attention deficit the afternoon as (E-cancel not hyperactivity needed for ADHD. sent)) disorder (ADHD), predominantly inattentive type methylphenidate HCl Take 1 Tablet 30 Tablet 0 Discontinued (Concerta) 54 mg (54 mg) by mouth 2 022 (Duplicate Extended-Release once daily. t herapy tabletIndications: ( E-cancel not Attention deficit se nt)) hyperactivity disorder (ADHD), predominantly inattentive type methylphenidate HCl Take 1 Tablet 30 Tablet 0 Discontinued (Concerta) 54 mg (54 mg) by mouth 2 022 (Duplicate Extended-Release once daily. t herapy tabletIndications: ( E-cancel not Attention deficit se nt)) hyperactivity disorder (ADHD), predominantly inattentive type methylphenidate HCl Take 1 Tablet 30 Tablet 0 Discontinued (Concerta) 54 mg (54 mg) by mouth 2 022 (Reorder Extended-Release once daily. ( E-cancel not tabletIndications: s ent)) Attention deficit hyperactivity disorder (ADHD), predominantly inattentive type Active Problems Problem Noted Date Controlled substance agreement signed 06/09/2021 Overview: Signed 06-09-2021 Dr. Jennifer Patterson MD Severe episode of recurrent major depres sive disorder, without psychotic features PTSD (post-traumatic stress disorder) Attention deficit hyperactivity disorder (ADHD), combi ziggy type Encounters Date Type Specialty Care Team Description 06/28/2022 Telephone Yamilka Zelaya Prior Autho rization JA Mendes (methylphenidat e HCl (Concerta) 54 m g Extended-Releas e tablet) 06/26/2022 Office Visit Yamilka Zelaya [facility] Intake; JA Mendes Medication Loree gement (Per HELP DESK OPERATOR Concerta 54 mg #30 last sold on 2, Ritalin 10mg #45 last s old on 11-10-21) 06/26/2022 Travel 06/06/2022 Lab Requisition Minnie Espitia MD 06/03/2022 Refill Jennifer Sheikh Refill Req uest (Concerta 54 MD [place] [facility]) 05/01/2022 Telephone Jennifer Sheikh Medication Management MD [place] (methylphenidat e HCl (Concerta) 54 m g Extended-Releas e tablet/) from Last 3 Months Immunizations Name Administration Dates Next Due COVID-19 vaccine (Moderna 07/20/2021 100mcg/0.5mL) WAYNE PARKINSON Influenza RIV4 (Age 18+ Years) 2019 PRESERV FREE Influenza, IIV3 (Age 6-35 mos) 06/16/2015 Influenza, IIV3 (Age >=3 years) 04/16/2014 Influenza, IIV4 04/14/2020, 05/16/2018, 08/07/2017, 07/03/2016 Tdap 06/18/2014, 01/01/2014 Family History Medical History Relation Name Comments Coronary artery disease Father Hydrocephalus Maternal Grandfather Dementia Maternal Grandmother Multiple sclerosis Mother Dementia Paternal Grandfather Heart attack Paternal Grandfather Cancer-breast Paternal Grandmother Diabetes Paternal Grandmother Polycystic ovary syndrome Sister Relation Name Status Comments Father Maternal Grandfather Maternal Grandmother Mother Paternal Grandfather Paternal Grandmother Sister Social History Tobacco Use Types Packs/Day Years Used Date Never Smoker Smokeless Tobacco: Never Used Tobacco Cessation: Counseling Given: Yes Alcohol Use Standard Drinks/Week Comments Yes 1 (1 standard drink = 0.6 oz pure alcoho l) 1 drink/ week Alcohol Habits Answer Date Recorded How often do you have a drink containing alcohol? Monthly or less 05/30/2019 How many drinks containing alcohol do you have on a Not aske d typical day when you are drinking? How often do you have six or more drinks on one Not asked occasion? 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 Obstetrics History Last Filed Vital Signs Vital Sign Reading Time Taken Comments Blood Pressure 142/88 06/26/2022 10:14 AM SHELF FILLER Pulse 76 06/26/2022 10:14 AM SHELF FILLER Temperature 36.7 ??C (98 ??F) 01/22/2015 8:22 AM CDT Respiratory Rate - - Oxygen Saturation 97% 01/22/2015 8:22 AM CDT Inhaled Oxygen Concentration - - Weight 121.6 kg (268 lb) 06/26/2022 10:14 AM SHELF FILLER Height 167.6 cm (5' 6) 06/30/2019 10:30 AM SHELF FILLER Body Mass Index 43.26 06/30/2019 10:30 AM SHELF FILLER Plan of Treatment Upcoming Encounters Date Type Specialty Care Team Description 08/07/2022 Office Visit Yamilka Zelaya NP [address] [place] [address] (Wo rk) Health Maintenance Due Date Last Done Comments HIV for age 15-65 1992 Hepatitis C screening for age 1106/19/1995 18-79 BMI (ht and wt on same day) for 06/30/2020 06/30/2019, 04/07, age 18+ 03/28/2019 COVID-19 vaccine series (4 - 09/14/2021 07/20/2021, 021, Booster for Moderna series) 09/15/2020 Influenza for age 9-49 04/06/2022 04/14/2020, 2019, 05/16/2018, Additional history exists Colonoscopy through age 75 2022 Mammogram for age 45-75 2022 Pap test for age 21-65 07/21/2022 07/21/2019, 07/21/2019, 08/11/2016, Additional history exists Depression screening for age 12+ 06/28/2023 06/28/2022, , 11/10/2021, Additional history exists Tetanus booster 06/18/2024 06/18/2014, 01/01/2014 Lipids for age 45-75 07/14/2026 07/14/2021, 06/28/2020 Tdap Completed 06/18/2014, 01/01/2014 Procedures Procedure Name Priority Date/Time Associated Diagnosis Comme nts LAB TRACKING EVENT Routine 06/06/2022 12:20 PM CDT PATH TISSUE EXAM Routine 06/06/2022 12:20 PM Resu lts for this CDT procedure are i n the results section. from Last 3 Months Results LAB TRACKING EVENT (06/06/2022 12:20 PM CDT) Specimen Anatomical Collection Method Collection Time Receive d Time (Source) Location / / Volume Laterality Other (Other) Client Collect / 06/06/2022 12:20 2021 8:50 Unknown PM CDT PM CDT Minnie Espitia MD LAB BILL ONLY Performing Organization Address City/State/ZIP Code Phon e Number [facility] [address] [place] [address] [place] [address] LABORATORY-CENTRAL 1999 LABORATORY PATH TISSUE EXAM (06/06/2022 12:20 PM CDT) Component Value Ref Test Analysis Performed At [facility] gist Range Method Time Signature Case Report Pathology Report ?Case: [id number] ? 06/07/2022 [facility] Authorizing Provider: ??Minnie Munoz MD ??Collected: ? 06/06/2022 1220 ? 1:59 PM CDT HEALTH Ordering Location: ? [facility] ?Received: ?06/06/20222112 ? HECTOR MANCERA Pathologist: ? Gómez Stokes, ? ENTRAL ? MD ? LABORATORY Specimens: ?? A) - Duodenum Biopsy ? B) - Pylo silas Biopsy ? C) - Stom ach Biopsy ? Final A) DUODENUM, BIOPSY: 06/07/2022 [facility] Electronically Diagnosis 1. Normal duodenal mucosa 1:59 PM CDT HE ALTH signed by 2. Negative for celiac disease and other enteropathy LABORATORY-[facility] [place], B) STOMACH, PREPYLORIC, BIOPSY: LABORATORY MD on 06/07/2022 1. Normal gastric antral mucosa at 1:59 PM 2. Negative for Helicobacter C) STOMACH, BIOPSY: 1. Normal gastric antral and body mucosae 2. Negative for Helicobacter Clinical Ms. Sr is a 06/07/2022 [facility] Information 46 y.o. who 1:59 PM CDT HEALTH presents with LABORATORY-C epigastric ENTRAL abdominal pain. LABORATORY The EGD reveals a regular Z-line at 40 cm. The stomach is notable for multiple mucosal nodules/papules . The examined duodenum was normal. Gross A) Received in formalin are 2 larsen mucosal fragments ranging from 3 mm to 4 mm in greatest dimension, which are entirely submitted in one cassette. It is labeled with the patient's name and designated duodenum. 06/07/2022 [facility] Description 1:59 PM CDT HEALTH B) Received in formalin is a larsen mucosal fragment measuring 4 mm in greatest dimension, which is entirely submitted in one cassette. It is labeled with the patient's name and designated prepyloric lesion. LABORATORY-C ENTRNANCY C) Received in formalin are 3 larsen mucosal fragments ranging from 3 mm to 5 mm in greatest dimension, which are entirely submitted in one cassette. It is labeled with the patient's name and designated random stomach. LABORATORY Micah Buenrostro 06/06/2022 9:15 PM Microscopic The final 06/07/2022 [facility] Description diagnosis is 1:59 PM [facility] based on LABORATORY-C microscopic ENTRAL examination of LABORATORY appropriate sections of all specimens. Additional 06/07/2022 [facility] Information Interpreted at [facility], Central Laboratory - [address], [place] [address] 1:59 PM [facility] LABORATORY-C ENTRAL LABORATORY Specimen Anatomical Collection Method Collection Time Receive d Time (Source) Location / / Volume Laterality Other (Duodenum 06/06/2022 12:20 06/06/20 22 9:13 Biopsy) PM CDT PM CDT Specimen 06/06/2022 12:20 06/06/2022 9:13 (specimen) PM CDT PM CDT (Pyloric Biopsy) Specimen 06/06/2022 12:20 06/06/2022 9:13 (specimen) PM CDT PM CDT (Stomach Biopsy) Minnie Espitia MD PATHOLOGY/CYTOLOGY Performing Organization Address City/State/ZIP Code Phon e Number [facility] [address] [place] [address] LABORATORY-CENTRAL 2000 LABORATORY from Last 3 Months Insurance Payer Benefit Plan / Subscriber ID Effective Dates Phone Addre ss Type Group [facility] [id number] 2021-Present [address] [address] [place] [address] Care Teams Batch Tank Controller Relationship Specialty Start Date End Date Luis Ambriz MD PCP - General Family Practice 05/11/20 [address] [place] [address]
[2022-06-30 13:04] LABS: Basophils Absolute Auto 0.03 K/uL (0.00-0.30); Basophils Percent Auto 0.6 % (0.0-3.0); Eosinophils Absolute Auto 0.07 K/uL (0.00-0.50); Eosinophils Percent Auto 1.4 % (0.0-7.0); Hematocrit 39.9 % (33.0-51.0); Hemoglobin* 13.5 gm/dL (12.0-16.0); Immature Granulocytes Abs Auto 0.01 K/uL (0.00-0.30); Immature Granulocytes Pct Auto 0.2 %; Lymphocytes Absolute Auto 1.44 K/uL (0.90-2.90); Lymphocytes Percent Auto 27.9 % (20-44); Mean Corpuscular HGB Conc 34 gm/dL (32-36); Mean Corpuscular Hemoglobin 33 pg (26-34); Mean Corpuscular Volume 97 fL (80-100); Monocytes Percent Auto 7.4 % (0.0-11.0); Neutrophils Absolute Auto 3.24 K/uL (1.7-7.0); Neutrophils Percent Auto 62.5 % (42.0-72.0); Platelet Count* 252 K/uL (140-440); RDW Coefficient of Variation % 11.7 % (11.5-15.5); Red Blood Count 4.11 m/uL (4.00-5.20); White Blood Count* 5.17 K/uL (4.50-11.00)
[2022-06-30] MEDS: CEFEPIME HCL 2 GM in 0.9 % SODIUM CHLORIDE Mini-bag 100 ML IVPB ×2 (13:05→21:05)
[2022-06-30 13:11] LABS: Slide Review Reflex No
[2022-06-30 13:34] LABS: Chloride* 107 mmol/L (96-114); Potassium* 4.1 mmol/L (3.6-5.1); Sodium* 138 mmol/L (135-149)
[2022-06-30 13:37] LABS: Creatinine* 0.9 mg/dL (0.5-1.5); Estimated Glomerular Filt Rate 80 ml/min
[2022-06-30 13:38] LABS: Blood Urea Nitrogen* 13 mg/dL (5-24); Calcium* 9.3 mg/dL (8.4-10.6); Carbon Dioxide* 25 mmol/L (20-32); Glucose* 170 mg/dL (60-115)
[2022-06-30 13:41] LABS: C Reactive Protein* 4.5 mg/dL (0.5-1.0)
[2022-06-30 14:00] VITALS: BP 126/82; PULSE 73; RESP 18; O2SAT 98
--- NOTE | 2022-06-30 14:14 | ED.GENADULT ---
HPI - General Adult General Chief complaint: Ear/Nose/Throat Problem Stated complaint: Left ear cellulitis Time Seen by Provider: 06/30/22 12:29 Source: patient Mode of arrival: ambulatory Limitations: no limitations History of Present Illness HPI narrative: 47-year-old female coming in today concerned about ear infection. Patient was diagnosed with a left ear cellulitis and started on Bactrim. She has had 4 doses of Bactrim, however, the infection continues to spread. Her ear has gotten redder and more swollen. She also states that she has more swelling and erythema of the face. She denies any fevers or chills or any other systemic symptoms. She states that she did have cellulitis of the right ear sometime ago and required IV antibiotics. Related Data Home Medications Medication Instructions Recorded Confirmed adalimumab 40 mg/0.4 mL 40 mg subcut QWEEK 04/03/22 05/26/22 subcutaneous pen kit aripiprazole 5 mg tablet 5 mg PO DAILY 04/03/22 05/26/22 bupropion HCl 150 mg tablet,12 hr 150 mg PO BID 04/03/22 05/26/22 sustained-release diclofenac sodium 1 % topical gel 1 topical PRN 04/03/22 05/26/22 methylphenidate HCl 10 mg tablet 15 mg PO .as needed PRN 04/03/22 05/26/22 methylphenidate HCl 54 mg 54 mg PO DAILY 04/03/22 05/26/22 tablet,extended release 24 hr metoprolol succinate 50 mg 50 mg PO DAILY 04/03/22 05/26/22 tablet,extended release 24 hr spironolactone 50 mg tablet 50 mg PO BID 04/03/22 05/26/22 venlafaxine 150 mg 150 mg PO DAILY 04/03/22 05/26/22 capsule,extended release 24 hr blood sugar diagnostic (Accu-Chek #10 ea 04/06/22 05/26/22 Guide test strips) diclofenac sodium 50 mg 50 mg PO DAILY 04/06/22 05/26/22 tablet,delayed release folic acid 1 mg tablet 1 mg PO DAILY 04/06/22 05/26/22 methotrexate sodium 2.5 mg tablet 15 mg PO .1 x week 04/06/22 05/26/22 ruxolitinib 1.5 % topical cream 1.5 applic topical DAILY PRN 04/06/22 05/26/22 sulfamethoxazole 400 2 tab PO DAILY 06/30/22 06/30/22 mg-trimethoprim 80 mg tablet Previous Rx's Medication Instructions Recorded metformin 500 mg tablet,extended 1,000 mg PO DAILY #180 tabs 04/06/22 release 24 hr nystatin 100,000 unit/gram topical 1 applic topical BID #60 grams 04/06/22 powder terbinafine HCl 250 mg tablet 250 mg PO QDAY 2 weeks #14 tabs 04/06/22 Allergies Allergy/AdvReac Type Severity Reaction Status Date / Time hydrocodone AdvReac Mild Itching Verified 06/28/22 21:09 Lavender oil Allergy Unknown Uncoded 05/26/22 09:44 Review of Systems Status of ROS: Reports: 10 or more systems reviewed and unremarkable except as noted in History and below [facility] Medical History Encounter for annual physical exam High risk medication use History of gestational diabetes mellitus (GDM) Surgical History Status post dilation and curettage Status post endometrial ablation (09/29/14) Status post hemorrhoidectomy (2013) Family History Other Breast cancer Social History Smoking Status: Never smoker Do you use any of these nicotine containing products: None Second hand tobacco smoke exposure: Yes How often do you have a drink containing alcohol: 2-4 times a month How many standard drinks containing alcohol do you have on a typical day: 1 or 2 How often do you have six or more drinks on one occasion: Never AUDIT-C Alcohol total score: 2 Non-prescribed substance use: denies use service: No Exam Narrative: Exam Narrative: Obese, well-developed patient in no acute distress. Alert and oriented. Answers questions appropriately. Mood and affect are appropriate. Thoughts are goal oriented and rational. No tangential or magical thinking noted. Patient speaks in full sentences without needing to catch her breath. HEENT: Normocephalic atraumatic. Pupils are equally round reactive to light. Extraocular muscles are intact. Conjunctivae are moist without any icterus noted. Moist mucous membranes. Posterior pharynx is normal. Neck is soft without any lymphadenopathy or thyromegaly. No masses are appreciated. Patient's left peanut is quite swollen and erythematous, hot to touch. She has erythema extending down the angle of the jaw and into her cheek. The skin is also indurated. Cardiovascular: Heart is regular rate and rhythm S1 and S2 are present without any murmurs. Lungs: Clear to auscultation bilaterally no wheezes rhonchi or rales are appreciated. Patient takes deep breaths without any discomfort. Const: Vital Signs, click to edit/add: Vital Signs - 24 hr 06/30/22 11:08 06/30/22 12:26 06/30/22 14:00 Temperature 96.6 F L Pulse Rate [Right Pulse Oximeter] 84 81 73 Respiratory Rate 16 18 18 Blood Pressure [Ri ght Forearm] 137/80 126/82 Pulse Oximetry 99 97 98 Oxygen Delivery Me thod Room Air Room Air Room Air 06/30/22 18:28 Temperature 96.8 F L Pulse Rate [Right Pulse Oximeter] 80 Respiratory Rate 20 Blood Pressure [Ri ght Forearm] 130/79 Pulse Oximetry 100 Oxygen Delivery Me thod Room Air Course Course Hospital Course: Hospitalization is recommended at this time for IV antibiotics, however, there are no beds available. Therefore we will start IV vancomycin and cefepime in the ER. CBC and chemistries are unremarkable, CRP elevated at 4.5. Patient received 1 dose of vancomycin and 2 doses of cefepime when a bed did become available. Patient will be admitted for further management. Vital Signs Vital signs: Initial Vital Signs Temperature 96.6 F L 06/30/22 11:08 Temperature Source Temporal Artery Scan 06/30/22 11:08 Pulse Rate 84 06/30/22 11:08 Pulse Rhythm 06/30/22 11:08 Respiratory Rate 16 06/30/22 11:08 Pulse Oximetry 99 06/30/22 11:08 Oxygen Delivery Method 06/30/22 11:08 Vital Signs Temperature 96.6 F L 06/30/22 11:08 Pulse Rate 84 06/30/22 11:08 Respiratory Rate 16 06/30/22 11:08 Pulse Oximetry 99 06/30/22 11:08 Oxygen Delivery Method 06/30/22 11:08 Temperature 96.8 F L 06/30/22 18:28 Pulse Rate 80 06/30/22 18:28 Respiratory Rate 20 06/30/22 18:28 Blood Pressure 130/79 06/30/22 18:28 Pulse Oximetry 100 06/30/22 18:28 Oxygen Delivery Method 06/30/22 18:28 Medical Decision Making MDM Narrative Medical decision making narrative: 47-year-old female with your cellulitis spreading now to the face. Patient will be admitted for IV antibiotics. Lab Data Lab results reviewed: Yes I reviewed the patient's lab results Labs: Lab Results 06/30/22 06/30/22 06/30/22 Range/Units 12:55 12:55 16:07 WBC 5.17 (4.50-11.00) K/uL RBC 4.11 (4.00-5.20) m/uL Hgb 13.5 (12.0-16.0) gm/dL Hct 39.9 (33.0-51.0) % MCV 97 (80-100) fL MCH 33 (26-34) pg MCHC 34 (32-36) gm/dL RDW Coeff of Claudette 11.7 (11.5-15.5) % Plt Count 252 (140-440) K/uL Neut % (Auto) 62.5 (42.0-72.0) % Lymph % (Auto) 27.9 (20-44) % Sawyer % (Auto) 7.4 (0.0-11.0) % Eos % (Auto) 1.4 (0.0-7.0) % Baso % (Auto) 0.6 (0.0-3.0) % Neut # (Auto) 3.24 (1.7-7.0) K/uL Lymph # (Auto) 1.44 (0.90-2.90) K/uL Sawyer # (Auto) 0.40 (0.00-0.90) K/UL Eos # (Auto) 0.07 (0.00-0.50) K/uL Baso # (Auto) 0.03 (0.00-0.30) K/uL Abs Immat Gran (auto) 0.01 (0.00-0.30) K/uL Imm/Tot Granulo (auto) 0.2 % Sodium 138 (135-149) mmol/L Potassium 4.1 (3.6-5.1) mmol/L Chloride 107 (96-114) mmol/L Carbon Dioxide 25 (20-32) mmol/L BUN 13 (5-24) mg/dL Creatinine 0.9 (0.5-1.5) mg/dL Estimated Creat Clear 73.90 Estimated GFR 80 ml/min Glucose 170 H (60-115) mg/dL Calcium 9.3 (8.4-10.6) mg/dL C-Reactive Protein 4.5 H (0.5-1.0) mg/dL SARS-CoV-2 (PCR) Negative SARS-CoV-2 (Negative) Discharge Plan Discharge Clinical Impression: Cellulitis Patient Disposition: Admitted As Inpatient Condition: Stable Prescriptions: No Action aripiprazole 5 mg tablet 5 mg PO DAILY methylphenidate HCl 54 mg tablet extended release 24hr 54 mg PO DAILY venlafaxine 150 mg capsule,extended release 24hr 150 mg PO DAILY methylphenidate HCl 10 mg tablet 15 mg PO .as needed PRN metoprolol succinate 50 mg tablet extended release 24 hr 50 mg PO DAILY spironolactone 50 mg tablet 50 mg PO BID adalimumab 40 mg/0.4 mL pen injector kit 40 mg subcut QWEEK bupropion HCl 150 mg tablet sustained-release 12 hr 150 mg PO BID diclofenac sodium 1 % gel 1 topical PRN diclofenac sodium 50 mg tablet,delayed release (DR/EC) 50 mg PO DAILY ruxolitinib 1.5 % cream 1.5 applic topical DAILY PRN methotrexate sodium 2.5 mg tablet 15 mg PO .1 x week folic acid 1 mg tablet 1 mg PO DAILY (DME) Accu-Chek Guide test strips Strip See Rx Instructions .ROUTE .MEDSUPPLY Qty: 10 Label Comments: TEST FOUR TIMES DAILY Rx Instructions: As directed nystatin 100,000 unit/gram powder 1 applic topical BID Qty: 60 8RF terbinafine HCl 250 mg tablet 250 mg PO QDAY 14 Days Qty: 14 1RF metformin 500 mg tablet extended release 24 hr 1,000 mg PO DAILY Qty: 180 1RF sulfamethoxazole-trimethoprim 400-80 mg tablet 2 tab PO DAILY Follow Up/Referrals: Luis Ambriz MD [Primary Care Provider] -
[2022-06-30 17:16] LABS: SARS PCR* Negative SARS-CoV-2 (Negative)
[2022-06-30 18:28] VITALS: BP 130/79; PULSE 80; RESP 20; TEMP 36; O2SAT 100
--- NOTE | 2022-06-30 18:29 | ED.NURSE ---
VS updated. Pt denies need.
--- NOTE | 2022-06-30 20:57 | W.PC.EDHO ---
Primary Language: Preferred Language: Orientation Status: [x] Alert & Oriented [] Slight Confusion [] Known Dx Dementia Transfers By: [x] Assist of 1 [] Assist of 2 [] Lift Active Medications Discontinued Medications Generic Name Dose Route Start Last Admin Trade Name Ethan PRN Reason Stop Dose Admin Cefepime HCl 2 gm/ Sodium 100 mls @ 200 mls/hr 06/30/22 13:00 06/30/22 13:35 Chloride IVPB 06/30/22 13:29 Infused ONCE ONE Infusion Vancomycin HCl 2,500 mg/ 525 mls @ 210 mls/hr 06/30/22 13:30 06/30/22 16:40 Sodium Chloride IVPB 06/30/22 15:59 Infused ONCE ONE Infusion Protocol Description of Symptoms ED Triage Present Problem Pt was seen in ED on 06/28/22 and was dx with left Description ear cellulitis, received Septra and started that yesterday. Pt states she has had no relief. Pt has hx of this and was hospitalized with IV antibiotics the last time. ED Triage Date of Onset of 06/28/22 Symptoms Female History Hx Last Menstrual Period pt had ablation and tubal Patient No Pain Pain Description [Left Ear] Acute Pain Intensity [Left Ear] 1 Pain Intensity 1 Pain Intensity 1 Pain Intensity 1 Pain Intensity 1 Pain Intensity 1 Pain Intensity 2 Pain Intensity 2 Pain Intensity 2 Pain Intensity 2 Pain Scale Used [Left Ear] Numeric (1 - 10) Pain Scale Used Numeric (1 - 10) Pain Scale Used Numeric (1 - 10) Pain Scale Used Numeric (1 - 10) IV Insertion/Site Date of IV Line Insertion [ 06/30/22 Left Hand] Oxygen Administration Pulse Oximetry 100 Pulse Oximetry 98 Pulse Oximetry 97 Pulse Oximetry 99 Oxygen Delivery Method Room Air Oxygen Delivery Method Room Air Oxygen Delivery Method Room Air Oxygen Delivery Method Room Air
[2022-06-30 21:02] LABS: PCR FLU A Negative PCR FLU A (Negative); PCR FLU B Negative PCR FLU B (Negative)
[2022-06-30 21:04] LABS: SARS PCR* Negative SARS-CoV-2 (Negative)
--- NOTE | 2022-06-30 21:59 | ED.NURSE ---
Rn to Rn report given. technology recruiter taking pt to room 261 via wheelchair
--- NOTE | 2022-06-30 22:43 | P.IMHP_ITS ---
Hospitalist- H&P: HPI History of Present Illness Time Seen by Provider: 23:00 Date Seen: 06/30/22 Chief complaint: Left ear cellulitis Narrative: Amelia Sr is a 47 year old female with type 2 diabetes mellitus who developed left ear pain and swelling with lymphadenopathy on Sunday. She was seen in the ER and was prescribed Bactrim. She took it for 4 doses, but noticed that it was worsening, now with swelling and pain in her left face. She denies fevers or chills. No headache or difficulty eating or swallowing. She had something similar in the right ear this past March. She failed Bactrim orally at that time and was then admitted to a hospital in [place] for IV antibiotics, which cleared it up. She tells me she thinks this is caused by picking. She has eczema around the tops of her ears that she picks. Review of Systems Status of ROS: Reports: 10 or more systems reviewed and unremarkable except as noted in History and below [facility] Medical History (Updated 07/01/22 @ 00:01 by Vesna Pizarro MD) Amenorrhea Controlled type 2 diabetes mellitus Depression Dermatitis Difficulty sleeping Encounter for annual physical exam Excessive daytime sleepiness External hemorrhoids Hidradenitis suppurativa High risk medication use History of gestational diabetes mellitus (GDM) Hypertension Migraine headache Morbid obesity Myalgia and myositis Tinea versicolor Urinary incontinence Uveitis of left eye Surgical History (Updated 06/30/22 @ 22:42 by Vesna Pizarro MD) Status post dilation and curettage Status post endometrial ablation (09/29/14) Status post hemorrhoidectomy (2013) Family History Other Breast cancer Social History (Updated 06/30/22 @ 22:59 by Vesna Pizarro MD) Narrative: Lifelong nonsmoker. Drinks less than one alcoholic drink per week. 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 Full code Smoking Status: Never smoker Do you use any of these nicotine containing products: None Second hand tobacco smoke exposure: Yes How often do you have a drink containing alcohol: 2-4 times a month How many standard drinks containing alcohol do you have on a typical day: 1 or 2 How often do you have six or more drinks on one occasion: Never AUDIT-C Alcohol total score: 2 Non-prescribed substance use: denies use service: No Meds Home Medications and Allergies Home Medications Medication Instructions Recorded Confirmed Type adalimumab 40 mg/0.4 mL 40 mg subcut QWEEK 04/03/22 06/30/22 History subcutaneous pen kit aripiprazole 5 mg tablet 5 mg PO DAILY 04/03/22 06/30/22 History bupropion HCl 150 mg tablet,12 hr 150 mg PO BID 04/03/22 06/30/22 History sustained-release diclofenac sodium 1 % topical gel 1 topical PRN 04/03/22 05/26/22 History methylphenidate HCl 10 mg tablet 10 mg PO DAILY@09 PRN 04/03/22 06/30/22 History methylphenidate HCl 54 mg 54 mg PO DAILY 04/03/22 06/30/22 History tablet,extended release 24 hr metoprolol succinate 50 mg 50 mg PO DAILY 04/03/22 06/30/22 History tablet,extended release 24 hr spironolactone 50 mg tablet 50 mg PO BID 04/03/22 06/30/22 History venlafaxine 150 mg 150 mg PO DAILY 04/03/22 06/30/22 History capsule,extended release 24 hr blood sugar diagnostic (Accu-Chek #10 ea 04/06/22 05/26/22 History Guide test strips) diclofenac sodium 50 mg 50 mg PO DAILY 04/06/22 06/30/22 History tablet,delayed release folic acid 1 mg tablet 1 mg PO DAILY 04/06/22 06/30/22 History methotrexate sodium 2.5 mg tablet 15 mg PO .1 x week 04/06/22 06/30/22 History ruxolitinib 1.5 % topical cream 1.5 applic topical DAILY PRN 04/06/22 05/26/22 History sulfamethoxazole 400 2 tab PO DAILY 06/30/22 06/30/22 History mg-trimethoprim 80 mg tablet Allergies Allergy/AdvReac Type Severity Reaction Status Date / Time hydrocodone AdvReac Mild Itching Verified 06/28/22 21:09 Lavender oil Allergy Unknown Uncoded 05/26/22 09:44 Exam Narrative: Exam Narrative: General: No acute distress. Awake alert oriented x3. HEENT: Normocephalic atraumatic. Right ear unremarkable. Left pinna erythematous and edematous with an excoriation in the upper fold of the pinna that also has a scab. There is erythema and firm edema at the angle of the left jaw and down into the upper part of the left lateral neck. Oropharynx clear. Mucous membranes are moist. No cervical lymphadenopathy, thyromegaly or carotid bruits. No JVD. Cardiovascular: Regular rate and rhythm. No murmurs, gallops, or rubs. Chest: No increased work of breathing. Clear to auscultation bilaterally. No crackles or wheezes. Abdomen: Bowel sounds present. Soft, nondistended, nontender. No hepatosplenomegaly or masses. Extremities: No edema, no cyanosis or clubbing. Skin: No jaundice, no pallor. Const: Vital Signs, click to edit/add: Vital Signs - 24 hr 06/30/22 11:08 06/30/22 12:26 06/30/22 14:00 Temperature 96.6 F L Pulse Rate [Right Pulse Oximeter] 84 81 73 Respiratory Rate 16 18 18 Blood Pressure [Ri ght Forearm] 137/80 126/82 Pulse Oximetry 99 97 98 Oxygen Delivery Me thod Room Air Room Air Room Air 06/30/22 18:28 Temperature 96.8 F L Pulse Rate [Right Pulse Oximeter] 80 Respiratory Rate 20 Blood Pressure [Ri ght Forearm] 130/79 Pulse Oximetry 100 Oxygen Delivery Me thod Room Air Documenting provider has reviewed patient's vital signs: yes Hospitalist - H&P: Result Labs Labs: Short CBC 06/30/22 Range/Units 12:55 WBC 5.17 (4.50-11.00) K/uL Hgb 13.5 (12.0-16.0) gm/dL Hct 39.9 (33.0-51.0) % Plt Count 252 (140-440) K/uL [facility] 06/30/22 12:55 Sodium 138 Potassium 4.1 Chloride 107 Carbon Dioxide 25 BUN 13 Creatinine 0.9 Glucose 170 H Calcium 9.3 Assessment and Plan Assessment and plan (1) Cellulitis: Problem comment: left ear and face - likely secondary to immunosuppression, picking, and DM2 Status: Acute Assessment and Plan: Continue cefepime and vancomycin, which were started in the emergency department. The area of erythema and edema has been outlined as of around 10:00 p.m. this evening. I have advised Amelia to stop picking at her ears. It appears this has become an involuntary habit as she was doing it even during my interview with her. I spoke with her about replacing it with a different behavior such as may be applying salve to the ear instead of picking at it. (2) Controlled type 2 diabetes mellitus: Problem comment: 04/06/22 Hgb A1C 6.5% Status: Chronic Assessment and Plan: I will order a diabetic diet. I congratulated her on having a good hemoglobin A1c recently. I stressed the importance of keeping blood sugars under control while healing. (3) Hypertension: Status: Chronic (4) Uveitis of left eye: Problem comment: Sees ophthomology at [facility] Status: Chronic Plan Continue home medications.
[2022-06-30 23:00] VITALS: BP 130/83; PULSE 72; RESP 18; TEMP 37; O2SAT 100
[2022-06-30 23:30] VITALS: BP 130/83; PULSE 72; RESP 18; TEMP 37; O2SAT 100; BMI 43.1
[2022-07-01] MEDS: buPROPion HCL SR 150 MG TAB PO ×3 (00:23→21:10)
[2022-07-01] MEDS: SPIRONOLACTONE 25 MG TABLET 50 MG PO ×3 (00:23→21:10)
[2022-07-01 02:40] VITALS: BP 106/56; PULSE 84; RESP 18; TEMP 36.9; O2SAT 96
[2022-07-01] MEDS: SODIUM CHLORIDE 0.9 % (FLUSH) 10 ML SYRINGE 5 ML IVF ×3 (04:34→21:26)
[2022-07-01] MEDS: CEFEPIME HCL 2 GM in 0.9 % SODIUM CHLORIDE Mini-bag 100 ML IVPB (04:35)
[2022-07-01] MEDS: 0.9 % SODIUM CHLORIDE 250 ml IV (05:12)
--- NOTE | 2022-07-01 05:23 | PC.NURSE ---
Patient admitted to the unit at 2200. A&Ox3. Independent in room. Denies pain but c/o itching on the L. ear. Erythema and swelling on L. ear and along L. side of jaw/neck outlined. Afebrile. Denies N/V/dizzinesses.
--- NOTE | 2022-07-01 07:34 | P.IMPN_ITS ---
Progress Note: A&P Assessment and plan (1) Cellulitis: Problem details: - Left ear and face: no trauma, but picks at skin (eczema). Immunosuppressed, DM2 - Continue Cefepime and Vancomycin (06/30) Status: Acute Assessment and Plan: - recommend at least 1 more day of inpatient IV antibiotics given recent failure of outpatient oral antibiotics - continue to follow white count and inflammatory markers (2) Controlled type 2 diabetes mellitus: Problem details: - 04/06/22 Hgb A1C 6.5% - continue Metformin Status: Chronic (3) Hypertension: Problem details: - stable, continue home meds Status: Chronic (4) Uveitis of left eye: Problem details: - follows with Rheumatology and Ophthalmology Status: Chronic (5) Immunosuppressed status: Problem details: - on Humira and Methotrexate for uveitis and Hidradenitis suppurativa Status: Acute Plan - continue antibiotics - SCDs and ambulation for ppx - potentially home as early as tomorrow, pending clinical course Subjective Date Seen: 07/01/22 Interval history: Patient feels a little better today, still has erythema and edema of L ear. Tolerating IV antibiotics and po intake. No concerns for hospitalist team. Exam Narrative: Exam Narrative: GEN: Alert HEENT: Outlined area from admission exhibits improvement of erythema, patient also is able to note decreased edema, no crepitus upon ear palpation CV: RRR, No concerning murmurs, rubs, or gallops R: LCTA bilaterally without concerning wheezing, rales, or rhonchi Ext: wwp, no concerning edema Skin: Cracked open skin around left pinna, no discrete abscesses or indurated areas Neuro: Nonfocal Psych: Appropriate Const: Vital Signs, click to edit/add: Vital Signs - 24 hr 06/30/22 11:08 06/30/22 12:26 06/30/22 14:00 Temperature 96.6 F L Pulse Rate [Right Pulse Oximeter] 84 81 73 Pulse Rate [Right] Respiratory Rate 16 18 18 Blood Pressure [Le ft Arm] Blood Pressure [Ri ght Forearm] 137/80 126/82 Pulse Oximetry 99 97 98 Oxygen Delivery Me thod Room Air Room Air Room Air 06/30/22 18:28 06/30/22 23:30 06/30/22 23:00 Temperature 96.8 F L 98.6 F Pulse Rate [Right Pulse Oximeter] 80 Pulse Rate [Right] 72 Respiratory Rate 20 18 18 Blood Pressure [Le ft Arm] 130/83 Blood Pressure [Ri ght Forearm] 130/79 Pulse Oximetry 100 100 100 Oxygen Delivery Me thod Room Air Room Air Room Air 06/30/22 23:00 06/30/22 23:00 07/01/22 02:40 Temperature 98.6 F 98.4 F Pulse Rate [Right Pulse Oximeter] Pulse Rate [Right] 72 84 Respiratory Rate 18 18 Blood Pressure [Le ft Arm] 130/83 106/56 L Blood Pressure [Ri ght Forearm] Pulse Oximetry 100 100 96 Oxygen Delivery Me thod Room Air Room Air Labs Labs: Laboratory Results - last 24 hr 06/30/22 06/30/22 06/30/22 12:55 12:55 16:07 WBC 5.17 RBC 4.11 Hgb 13.5 Hct 39.9 MCV 97 MCH 33 MCHC 34 RDW Coeff of Claudette 11.7 Plt Count 252 Neut % (Auto) 62.5 Lymph % (Auto) 27.9 [place] % (Auto) 7.4 Eos % (Auto) 1.4 Baso % (Auto) 0.6 Neut # (Auto) 3.24 Lymph # (Auto) 1.44 [place] # (Auto) 0.40 Eos # (Auto) 0.07 Baso # (Auto) 0.03 Abs Immat Gran (auto) 0.01 Imm/Tot Granulo (auto) 0.2 Sodium 138 Potassium 4.1 Chloride 107 Carbon Dioxide 25 BUN 13 Creatinine 0.9 Estimated Creat Clear 73.90 Estimated GFR 80 Glucose 170 H Calcium 9.3 C-Reactive Protein 4.5 H SARS-CoV-2 (PCR) Negative SARS-CoV-2 Influenza Type A (PCR) Influenza Type B (PCR) 06/30/22 20:18 WBC RBC Hgb Hct MCV MCH MCHC RDW Coeff of Claudette Plt Count Neut % (Auto) Lymph % (Auto) [place] % (Auto) Eos % (Auto) Baso % (Auto) Neut # (Auto) Lymph # (Auto) [place] # (Auto) Eos # (Auto) Baso # (Auto) Abs Immat Gran (auto) Imm/Tot Granulo (auto) Sodium Potassium Chloride Carbon Dioxide BUN Creatinine Estimated Creat Clear Estimated GFR Glucose Calcium C-Reactive Protein SARS-CoV-2 (PCR) Negative SARS-CoV-2 Influenza Type A (PCR) Negative PCR FLU A Influenza Type B (PCR) Negative PCR FLU B
[2022-07-01 08:50] VITALS: BP 130/86; PULSE 80; RESP 18; TEMP 36.5; O2SAT 96
[2022-07-01] MEDS: METOPROLOL SUCCINATE (XL) 50 MG TAB PO (09:00)
[2022-07-01] MEDS: FOLIC ACID 1 MG TABLET PO (09:00)
[2022-07-01] MEDS: ARIPiprazole 10 MG TABLET 5 MG PO (09:00)
[2022-07-01] MEDS: VENLAFAXINE ER 75 MG CAPSULE 150 MG PO (09:00)
[2022-07-01] MEDS: METFORMIN ER 500 MG 1000 MG PO (09:00)
[2022-07-01] MEDS: CEFEPIME HCL 2 GM VIAL IVPB ×2 (13:28→21:25)
[2022-07-01 13:51] VITALS: BP 133/82; PULSE 70; RESP 16; TEMP 36.7; O2SAT 96
[2022-07-01 16:40] VITALS: BP 151/83; PULSE 76; RESP 16; TEMP 36.9; O2SAT 98
[2022-07-01 19:00] VITALS: BP 110/69; PULSE 72; RESP 16; TEMP 36.2; O2SAT 100
[2022-07-01 23:00] VITALS: BP 109/68; PULSE 72; PULSE 73; RESP 16; TEMP 36.6; O2SAT 98
[2022-07-02 00:10] VITALS: BP 109/68; PULSE 73; RESP 16; TEMP 36.6; O2SAT 98
[2022-07-02 04:00] VITALS: PULSE 70; RESP 16; O2SAT 98
[2022-07-02] MEDS: 0.9 % SODIUM CHLORIDE 250 ml IV (04:41)
[2022-07-02] MEDS: CEFEPIME HCL 2 GM VIAL IVPB (04:41)
--- NOTE | 2022-07-02 04:47 | PC.NURSE ---
[id number]: patient up ad lizandro, pain well managed, area of redness receding from outlined khloe. afebrile.
[2022-07-02 06:56] LABS: Eosinophils Percent Auto 2.5 % (0.0-7.0); Hematocrit 38.9 % (33.0-51.0); Immature Granulocytes Pct Auto 0.2 %; Lymphocytes Percent Auto 48.1 % (20-44); Mean Corpuscular HGB Conc 33 gm/dL (32-36); Mean Corpuscular Hemoglobin 33 pg (26-34); Mean Corpuscular Volume 98 fL (80-100); Monocytes Percent Auto 7.7 % (0.0-11.0); Neutrophils Percent Auto 40.5 % (42.0-72.0); Platelet Count* 264 K/uL (140-440); RDW Coefficient of Variation % 11.8 % (11.5-15.5); Red Blood Count 3.97 m/uL (4.00-5.20); White Blood Count* 4.03 K/uL (4.50-11.00)
[2022-07-02 07:00] LABS: Slide Review Reflex No
[2022-07-02 07:18] LABS: Chloride* 110 mmol/L (96-114); Sodium* 137 mmol/L (135-149)
[2022-07-02 07:19] LABS: Potassium* 4.2 mmol/L (3.6-5.1)
[2022-07-02 07:21] LABS: Creatinine* 0.8 mg/dL (0.5-1.5); Est. Creatinine Clearance* 83.13; Estimated Glomerular Filt Rate 93 ml/min
[2022-07-02 07:22] LABS: Blood Urea Nitrogen* 19 mg/dL (5-24); Calcium* 8.6 mg/dL (8.4-10.6); Carbon Dioxide* 21 mmol/L (20-32); Glucose* 99 mg/dL (60-115)
[2022-07-02 07:25] LABS: C Reactive Protein* 1.6 mg/dL (0.5-1.0)
--- NOTE | 2022-07-02 07:50 | P.DS_ITS ---
DS: Providers Provider Date Seen: 07/02/22 Date of admission: 07/01/22 08:54 Primary care physician: Luis Ambriz MD Admitting Clinician: Vesna Piazrro MD Attending Physician on discharge: Alicia Call MD Date of Discharge: 07/02/22 DS: Diagnosis Discharge Diagnosis (1) Cellulitis: Status: Acute Problem details: - Left ear, edema into L cheek: no trauma, but picks at skin (eczema). Immunosuppressed, DM2. - IV Cefepime and Vancomycin (06/30) (2) Immunosuppressed status: Status: Acute Problem details: - on Humira and Methotrexate for uveitis and Hidradenitis suppurativa DS: Summary Hospital Course Hospital Course: Very pleasant 47-year-old female, admitted to the hospital on 06/30 for left ear cellulitis, failed outpatient oral Bactrim. Patient has known history of eczema and occasionally picks at her skin, has had cellulitis in the past. Given immunosuppressed status and degree of cellulitis and facial edema, patient admitted to the hospital and started on IV Cefepime and Vancomycin. Amelia did not have any inpatient fevers, labs remained stable with CRP improvement. She felt comfortable with discharge home on hospital day 2. Outside records were reviewed; patient was hospitalized at [facility] in [place] for similar symptoms in May. She was negative for MRSA at the time and discharged home on Levaquin, which was effective in clearing upper cellulitis. Given that history, we will discharge her home on Levaquin with close outpatient PCP follow-up. Status at Discharge Functional status at discharge: independent ambulation Overall status at discharge: patient is back to baseline Time Spent with Patient Time attestation: Total time spent providing and/or coordinating discharge services: Time spent: Greater than 30 minutes Specific discharge activities: Medication reconciliation, new prescriptions, care coordination Exam Narrative: Exam Narrative: GEN: Alert and oriented, sitting comfortably in bed answering questions appropriately, nontoxic in appearance HEENT: Left external ear has much improved erythema and edema, no tenderness to palpation, no open skin wounds, fluctuance, induration. Left facial edema is significantly improved, no crepitus, no trismus. R: Breathing comfortably without tachypnea Skin: No other concerning skin lesions or rashes on exposed skin Neuro: No focal deficits, no resting tremor Psych: Appropriate, comfortable with discharge plan Const: Vital Signs, click to edit/add: Vital Signs - 24 hr 07/01/22 08:50 07/01/22 13:51 07/01/22 16:40 Temperature 97.7 F 98.1 F 98.5 F Pulse Rate [Right Radial] 80 70 76 Respiratory Rate 18 16 16 Blood Pressure [Le ft Arm] 130/86 133/82 151/83 H Pulse Oximetry 96 96 98 Oxygen Delivery Me thod Room Air Room Air Room Air 07/01/22 19:00 07/01/22 23:00 07/01/22 23:00 Temperature 97.2 F L 98 F Pulse Rate [Right Radial] 72 72 73 Respiratory Rate 16 16 16 Blood Pressure [Le ft Arm] 110/69 109/68 Pulse Oximetry 100 98 Oxygen Delivery Me thod Room Air Room Air 07/02/22 00:10 07/02/22 00:10 07/02/22 04:00 Temperature 98 F Pulse Rate [Right Radial] 73 73 70 Respiratory Rate 16 16 16 Blood Pressure [Le ft Arm] 109/68 Pulse Oximetry 98 98 Oxygen Delivery Me thod Room Air Room Air DS: Data Data Completed and Pending Labs on day of discharge: Labs from last 24 hours 07/02/22 07/02/22 06:31 06:31 WBC 4.03 L RBC 3.97 L Hgb 13.0 Hct 38.9 MCV 98 MCH 33 MCHC 33 RDW Coeff of Claudette 11.8 Plt Count 264 Neut % (Auto) 40.5 L Lymph % (Auto) 48.1 H [place] % (Auto) 7.7 Eos % (Auto) 2.5 Baso % (Auto) 1.0 Neut # (Auto) 1.60 L Lymph # (Auto) 1.90 [place] # (Auto) 0.30 Eos # (Auto) 0.10 Baso # (Auto) 0.00 Abs Immat Gran (auto) 0.00 Imm/Tot Granulo (auto) 0.2 Sodium 137 Potassium 4.2 Chloride 110 Carbon Dioxide 21 BUN 19 Creatinine 0.8 Estimated Creat Clear 83.13 Estimated GFR 93 Glucose 99 Calcium 8.6 C-Reactive Protein 1.6 H Discharge Plan Discharge Disposition: Home, Self-Care Date of Admission: 07/01/22 08:54 Attending Provider on Discharge: Alicia Call Primary Care Provider: Luis Ambriz Condition: Stable Anticipated Discharge Date/Time: 07/02/22 09:00 Discharge Medications: New levofloxacin 500 mg tablet 500 mg PO Q24H Qty: 5 0RF Continued aripiprazole 5 mg tablet 5 mg PO DAILY methylphenidate HCl 54 mg tablet extended release 24hr 54 mg PO DAILY venlafaxine 150 mg capsule,extended release 24hr 150 mg PO DAILY methylphenidate HCl 10 mg tablet 10 mg PO DAILY@09 PRN metoprolol succinate 50 mg tablet extended release 24 hr 50 mg PO DAILY spironolactone 50 mg tablet 50 mg PO BID adalimumab 40 mg/0.4 mL pen injector kit 40 mg subcut QWEEK bupropion HCl 150 mg tablet sustained-release 12 hr 150 mg PO BID diclofenac sodium 1 % gel 1 topical PRN diclofenac sodium 50 mg tablet,delayed release (DR/EC) 50 mg PO DAILY ruxolitinib 1.5 % cream 1.5 applic topical DAILY PRN methotrexate sodium 2.5 mg tablet 15 mg PO .1 x week folic acid 1 mg tablet 1 mg PO DAILY (DME) Accu-Chek Guide test strips Strip See Rx Instructions .ROUTE .MEDSUPPLY Qty: 10 Label Comments: TEST FOUR TIMES DAILY Rx Instructions: As directed nystatin 100,000 unit/gram powder 1 applic topical BID Qty: 60 8RF metformin 500 mg tablet extended release 24 hr 1,000 mg PO DAILY Qty: 180 1RF sulfamethoxazole-trimethoprim 400-80 mg tablet 2 tab PO DAILY Discharge Orders: Discharge Order (Routine); Ordered 07/02/22 Ordered By: Alicia Call Patient Education: Levofloxacin (By mouth), Cellulitis (GEN) Activity Level: Activity as Tolerated Discharge Diet: Diabetic Follow Up Appointments: Luis Ambriz MD [Primary Care Provider] - (next week for hospital f/u (patient to call on Sunday)) Forms: [employer] Info Instructions
[2022-07-02 08:31] VITALS: BP 127/85; PULSE 73; RESP 18; TEMP 36.6; O2SAT 97
[2022-07-02] MEDS: buPROPion HCL SR 150 MG TAB PO (08:31)
[2022-07-02] MEDS: SPIRONOLACTONE 25 MG TABLET 50 MG PO (08:32)
[2022-07-02] MEDS: ARIPiprazole 10 MG TABLET 5 MG PO (08:32)
[2022-07-02] MEDS: METOPROLOL SUCCINATE (XL) 50 MG TAB PO (08:32)
[2022-07-02] MEDS: VENLAFAXINE ER 75 MG CAPSULE 150 MG PO (08:32)
[2022-07-02] MEDS: METFORMIN ER 500 MG 1000 MG PO (08:32)
[2022-07-02] MEDS: FOLIC ACID 1 MG TABLET PO (08:33)
[2022-07-02 08:40] VITALS: RESP 16; TEMP 36.6
== END 2022-07-02 10:44 | disposition home or self-care (01) | DRG 155 ==
LOC: ED 20:24 → MEDSURG 20:46
PROVIDERS: Family Medicine; Admitting Provider Family Medicine; Emergency Provider Family Medicine; PCP Family Medicine; Visit Provider Family Medicine
DX: H60.12 Cellulitis of left external ear (principal); D84.821 Immunodeficiency due to drugs; Z68.41 Body mass index [BMI] 40.0-44.9, adult; E66.01 Morbid (severe) obesity due to excess calories; L30.9 Dermatitis, unspecified; E11.9 Type 2 diabetes mellitus without complications; H20.12 Chronic iridocyclitis, left eye; L73.2 Hidradenitis suppurativa; Z79.631 Long term (current) use of antimetabolite agent; Z79.620 Long term (current) use of immunosuppressive biologic; I10 Essential (primary) hypertension; F32.A Depression, unspecified; Z86.32 Personal history of gestational diabetes
CPT/HCPCS: 36415; 80048; 85025; 86140; 87631; 87635; 99284; 99285; A9270; G0378; J0692; J3370; J7050; J7120; S0106

== ENCOUNTER 2022-07-13 07:51 | Day surgery (SDC) | payer OTHER, SELFPAY ==
[2022-07-13] VITALS (14 sets, daily range): BP systolic 122–148; BP diastolic 63–91; PULSE 59–90; RESP 16–20; TEMP 36–36.7; O2SAT 95–100; BMI 44.4
[2022-07-13] MEDS: LACTATED RINGERS 1000 ML 1,000 ML 100 ML IV ×2 (08:35→10:53)
[2022-07-13] MEDS: SODIUM CHLORIDE 0.9 % (FLUSH) 10 ML SYRINGE IVF (08:35)
[2022-07-13] MEDS: ONDANSETRON 2 MG/ML inj 4 MG IVP (08:48)
[2022-07-13] MEDS: BUPIVACAINE 0.5% 30 ML INJECTION (10:15)
--- NOTE | 2022-07-13 10:17 | P.NB_ITS ---
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 Images saved: Yes Medications given in 5ml increments after negative aspiration: Marcaine %: 0.25 mL: 30 Needle gauge: 20 and Exparel mL: 10 Patient tolerated procedure well: Yes Additional comments: Needle noted adjacent to nerve Block Charges Block Charge (with Pro Fee): TAP Bilateral Use of Ultrasound Machine for Block: Yes- US Guidance/pain block
--- NOTE | 2022-07-13 10:38 | PM.GSPRC ---
Operative Note Date of procedure: 07/13/22 Type of Procedure: Laparoscopic cholecystectomy Procedure Description: After discussing the risks and benefits of the procedure, the patient signed informed consent.? The operative site was marked and the patient was brought to the operating room and placed on the operating table in supine position.? Care was taken to pad the patient's pressure points.?? The patient was then intubated by anesthesia.?? The operative site was then prepped and draped in the usual sterile fashion.? A time-out was then performed. Entrance to the abdomen was gained via a 5 mm Visiport in the left upper quadrant. The abdomen was insufflated and briefly surveyed for signs of injury. There was none. 11 mm umbilical port was placed as well as 2 working ports along the right costal margin. Patient was then placed in reverse Trendelenburg position with the right side up. The gallbladder fundus was grasped and retracted cephalad. The infundibulum was grasped. A combination of hook cautery and blunt dissection was used to carefully dissect out the cystic duct and artery until they could clearly be seen entering the gallbladder without any intervening structures. The gallbladder was dissected off the cystic plate to achieve the critical view. Once this was achieved the cystic duct and artery were each clipped with 2 clips proximally and 1 clip distally and transected with the scissors. The gallbladder was then taken off of the liver bed. And removed from the abdomen using an Endo-Catch bag. The gallbladder bed was surveyed for hemostasis. A small amount of bile which had spilled was suctioned from the abdomen. The umbilical port fascia was closed with 0 Vicryl via the Jamal-Dony. The ports were then removed under direct vision.. The skin was closed with absorbable subcuticular suture. Instrument sponge and needle counts were correct at the end of the case. The patient was then woken and transferred to the PACU in stable condition. ? Findings: Normal gallbladder. Anesthesia: GETA Surgeon: Addis Sterling MD Estimated blood loss (mL): 5 Condition: stable Disposition: same day
[2022-07-13] MEDS: METOCLOPRAMIDE HCL 5 MG/ML INJ 10 MG IVP (10:45)
--- NOTE | 2022-07-13 10:45 | W.ANESCHARGE ---
Anesthesia Charges Start Date/Time Anesthesia Start Date: 07/13/22 Anesthesia Start Time: 09:17 Stop Date/Time Anesthesia Stop Date: 07/13/22 Anesthesia Stop Time: 10:44 Summary Emergency: No
[2022-07-13] MEDS: fentaNYL 100 MCG/2 ML inj 50 MCG IVP (10:50)
--- NOTE | 2022-07-13 11:07 | W.ANESCHARGE ---
Anesthesia Charges Start Date/Time Anesthesia Start Date: 07/13/22 Anesthesia Start Time: 09:17 Stop Date/Time Anesthesia Stop Date: 07/13/22 Anesthesia Stop Time: 10:44 Summary Emergency: No
[2022-07-13] MEDS: OXYCODONE 5 MG TABLET PO (12:07)
== END 2022-07-13 12:52 | disposition home or self-care (01) ==
PROVIDERS: PCP Family Medicine; Visit Provider Surgery
PROC: 0FT44ZZ Resection of Gallbladder, Percutaneous Endoscopic Approach (ICD-10-PCS; CPT 47562; principal; 2022-07-13 09:15)
DX: K80.10 Calculus of gallbladder with chronic cholecystitis without obstruction (principal)
CPT/HCPCS: 47562; 00790; 64488; 76942; 82962; 88304; A9270; C9290; J0330; J1100; J1885; J2250; J2370; J2405; J2704; J2710; J2765; J3010; J3490; J7120

== ENCOUNTER 2022-08-09 14:26 | Outpatient (CLI) | payer OTHER, SELFPAY ==
[2022-08-09 15:03] LABS: Basophils Absolute Auto 0.03 K/uL (0.00-0.30); Basophils Percent Auto 0.5 % (0.0-3.0); Eosinophils Absolute Auto 0.09 K/uL (0.00-0.50); Eosinophils Percent Auto 1.4 % (0.0-7.0); Hematocrit 39.6 % (33.0-51.0); Hemoglobin* 13.5 gm/dL (12.0-16.0); Lymphocytes Percent Auto 23.3 % (20-44); Mean Corpuscular HGB Conc 34 gm/dL (32-36); Mean Corpuscular Hemoglobin 33 pg (26-34); Mean Corpuscular Volume 97 fL (80-100); Neutrophils Absolute Auto 4.38 K/uL (1.7-7.0); Neutrophils Percent Auto 67.8 % (42.0-72.0); Platelet Count* 274 K/uL (140-440); RDW Coefficient of Variation % 11.7 % (11.5-15.5); White Blood Count* 6.45 K/uL (4.50-11.00)
[2022-08-09 15:21] LABS: Albumin* 4.3 g/dL (3.3-5.0); Chloride* 107 mmol/L (96-114); Sodium* 137 mmol/L (135-149)
[2022-08-09 15:23] LABS: Creatinine* 0.6 mg/dL (0.5-1.5); Estimated Glomerular Filt Rate 113 ml/min
[2022-08-09 15:24] LABS: Alanine Aminotransferase* 91 U/L (4-35); Alkaline Phosphatase* 77 U/L (40-150); Aspartate Amino Transferase* 53 U/L (12-35); Bilirubin Total* 0.8 mg/dL (0.1-1.5); Blood Urea Nitrogen* 9 mg/dL (5-24); Calcium* 9.1 mg/dL (8.4-10.6); Carbon Dioxide* 24 mmol/L (20-32); Glucose* 104 mg/dL (60-115); Total Protein* 7.1 g/dL (6.0-8.3)
[2022-08-09 15:27] LABS: C Reactive Protein* 0.6 mg/dL (0.5-1.0)
[2022-08-09 15:50] LABS: Slide Review Reflex No
[2022-08-09 16:49] LABS: Erythrocyte SedimentationRate* 2 mm/hr (2-20)
== END 2022-08-09 14:27 | disposition home or self-care (01) ==
LOC: LAB 14:29
PROVIDERS: PCP Family Medicine; Referring Provider Family Medicine; Visit Provider Family Medicine
DX: H30.23 Posterior cyclitis, bilateral (principal); Z79.899 Other long term (current) drug therapy
CPT/HCPCS: 36415; 80053; 85025; 85651; 86140

== ENCOUNTER 2022-08-12 20:12 | Emergency (ER) | payer OTHER, SELFPAY ==
[2022-08-12 20:38] VITALS: BP 124/76; PULSE 81; RESP 18; TEMP 36.8; O2SAT 98; BMI 43.3
--- NOTE | 2022-08-12 21:29 | CRLHL7_ITS ---
For Patients: As a result of the Cures Act, medical imaging exams and procedure reports are released immediately into your electronic medical record. You may view this report before your referring provider. If you have questions, please contact your health care provider. INDICATION: Cellulitis. TECHNIQUE: CT orbits with 132 mL of Isovue 370 IV contrast. COMPARISON: Brain and orbits MRI 12/09/2021. FINDINGS: Orbits and globes: Unremarkable. Globes are intact. No sign of intraorbital hemorrhage or emphysema. Imaged facial bones: No fractures or bone lesions. Sinuses: Minimal bilateral maxillary sinus mucosal thickening. The mastoid air cells are clear. Soft tissues: Unremarkable. No significant subcutaneous soft tissue stranding. No fluid collection. IMPRESSION: Unremarkable CT of the orbits. No CT evidence for cellulitis, abscess, or orbital pathology. Please note that all CT scans at this facility use dose modulation, iterative reconstruction, and/or weight-based dosing when appropriate to reduce radiation dose to as low as reasonably achievable. Dictated by Chase Ardon MD @ 08/12/2022 10:36:17 PM (Electronically Signed)
--- NOTE | 2022-08-12 21:37 | ED.GENADULT ---
HPI - General Adult General Date Seen: 08/12/22 Chief complaint: Unspecified Complaint, Adult Stated complaint: Cellulitis Face Time Seen by Provider: 08/12/22 21:15 Source: patient History of Present Illness HPI narrative: Patient is a 47-year-old woman who is on methotrexate for history of uveitis as well as Adalimumab secondary to history of hidradenitis suppurativa. She has had problems with cellulitis a few times, previously in her ear. Yesterday she began to develop some redness, warmth and pain by her right cheek and temporal area. She had some leftover antibiotics so she took a dose last night, then was seen in urgent care earlier today and was prescribed Bactrim and Augmentin. She is now taken a 2nd dose of those. She says she was told if she developed any eye pain she should come to the ER. She feels like since then her right eye has started to bother her a little bit. She does not have any vision changes. She says if she looks to the right she feels like her eyes aching a little bit. Otherwise, the redness has not changed. She has not been running any fevers. She has otherwise felt well. Related Data Home Medications Medication Instructions Recorded Confirmed adalimumab 40 mg/0.4 mL 40 mg subcut QWEEK 04/03/22 08/12/22 subcutaneous pen kit aripiprazole 5 mg tablet 5 mg PO DAILY 04/03/22 08/12/22 bupropion HCl 150 mg tablet,12 hr 150 mg PO BID 04/03/22 08/12/22 sustained-release methylphenidate HCl 10 mg tablet 10 mg PO DAILY@09 PRN 04/03/22 08/12/22 methylphenidate HCl 54 mg 54 mg PO DAILY 04/03/22 08/12/22 tablet,extended release 24 hr metoprolol succinate 50 mg 50 mg PO DAILY 04/03/22 08/12/22 tablet,extended release 24 hr spironolactone 50 mg tablet 50 mg PO BID 04/03/22 08/12/22 venlafaxine 150 mg 150 mg PO DAILY 04/03/22 08/12/22 capsule,extended release 24 hr blood sugar diagnostic (Accu-Chek #10 ea 04/06/22 08/12/22 Guide test strips) folic acid 1 mg tablet 1 mg PO DAILY 04/06/22 08/12/22 methotrexate sodium 2.5 mg tablet 15 mg PO .1 x week 04/06/22 08/12/22 ruxolitinib 1.5 % topical cream 1.5 applic topical DAILY PRN 04/06/22 08/12/22 Previous Rx's Medication Instructions Recorded metformin 500 mg tablet,extended 1,000 mg PO DAILY #180 tabs 04/06/22 release 24 hr nystatin 100,000 unit/gram topical 1 applic topical BID #60 grams 04/06/22 powder diclofenac sodium 50 mg 50 mg PO DAILY #120 tabs 07/10/22 tablet,delayed release amoxicillin 875 mg-potassium 1 tab PO BID 7 days #14 tabs 08/12/22 clavulanate 125 mg tablet sulfamethoxazole 800 1 tab PO BID 7 days #14 tabs 08/12/22 mg-trimethoprim 160 mg tablet (Bactrim DS) Allergies Allergy/AdvReac Type Severity Reaction Status Date / Time hydrocodone Allergy Mild Itching Verified 08/12/22 21:50 Review of Systems Status of ROS: Reports: 10 or more systems reviewed and unremarkable except as noted in History and below [facility] Medical History Amenorrhea Controlled type 2 diabetes mellitus Depression Dermatitis Difficulty sleeping Encounter for annual physical exam Excessive daytime sleepiness External hemorrhoids Hidradenitis suppurativa High risk medication use History of gestational diabetes mellitus (GDM) Hypertension Migraine headache Morbid obesity Myalgia and myositis Tinea versicolor Urinary incontinence Uveitis of left eye Surgical History Status post dilation and curettage Status post endometrial ablation (09/29/14) Status post hemorrhoidectomy (2013) Family History Other Breast cancer Social History Narrative: Lifelong nonsmoker. Drinks less than one alcoholic drink per week. 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 Full code Highest level of school completed/degree received: some college, no degree Smoking Status: Never smoker Do you use any of these nicotine containing products: None Second hand tobacco smoke exposure: Yes (father smoked) How often do you have a drink containing alcohol: 2-4 times a month Alcohol type details: ilia How many standard drinks containing alcohol do you have on a typical day: 1 or 2 How often do you have six or more drinks on one occasion: Never AUDIT-C Alcohol total score: 2 Non-prescribed substance use: denies use Caffeine: Yes (pop) Are you using contraception or practicing any form of control: No service: No Exam Narrative: Exam Narrative: Vital signs as noted above. In general, an alert, well-appearing patient. Head: Normocephalic, atraumatic. Eyes: Pupils are equal reactive. Extraocular movements are full. Conjunctivae are normal. Lids are normal, no erythema or edema. ENT: Mucous membranes are moist. Throat is normal. On the right upper cheek and temporal area she has erythema, warmth and mild tenderness. There is no significant induration, no fluctuance. Neck: Supple without lymphadenopathy. Heart: Regular rate and rhythm. No murmur or rub. Lungs: Clear bilaterally. No increased work of breathing, crackles or wheezes. Extremities: Well perfused. No edema. No calf tenderness. Pulses intact. Neurologic: Patient is alert and oriented to person and place. Speech is fluent. Face is symmetric. Moves all extremities equally. Affect: Normal. Skin: Warm and dry. Well perfused. Const: Vital Signs, click to edit/add: Vital Signs - 24 hr 08/12/22 20:38 Temperature 98.2 F Pulse Rate [Left P ulse Oximeter] 81 Respiratory Rate 18 Blood Pressure [Ri ght Forearm] 124/76 Pulse Oximetry 98 Oxygen Delivery Me thod Room Air Documenting provider has reviewed patient's vital signs: yes Course Course Hospital Course: Patient presents with a cellulitis adjacent to her right eye but not involving the eye, without any evidence of periorbital cellulitis at this time. She is not evidencing ophthalmoplegia on exam. She does not have any diplopia or other visual symptoms. Her cellulitis is not progressed compared to earlier, though it is not significantly improved. However, she has only had 2 doses of antibiotic. For now, I have recommended that we start by checking some labs, get a CT scan to see how the area around her eyes looks and make sure that we do not see progression of infection into the soft tissues. If not, I think she can continue with antibiotics at home, plus or minus a dose of IV antibiotics here. Labs are reassuring, her white blood cell count is normal at 5.8, normal diff. metabolic panel is normal, CRP is minimally elevated at 1.7, lactate is 1.2. CT scan read by Radiology as follows: Unremarkable CT of the orbits. No CT evidence for cellulitis, abscess, or orbital pathology. Overall, her cellulitis is relatively mild this time, clinically she looks well, and CT and labs are reassuring. I think it is reasonable for her to continue oral antibiotics at home, though I have discussed with her that there is no way to predict whether not her cellulitis will ultimately respond oral antibiotics over the next 1-2 days. It is possible that she will ultimately require IV antibiotics for treatment. I am going to give her a dose of Rocephin here after discussing options with her. She will then continue her antibiotics at home. If not improving over the next 1-2 days, she will need to come back for re-evaluation. Return at any time for significant worsening in the interim. Vital Signs Vital signs: Initial Vital Signs Temperature 98.2 F 08/12/22 20:38 Temperature Source Oral 08/12/22 20:38 Pulse Rate 81 08/12/22 20:38 Respiratory Rate 18 08/12/22 20:38 Blood Pressure 124/76 08/12/22 20:38 Blood Pressure Mean 92 08/12/22 20:38 Blood Pressure Position Sitting 08/12/22 20:38 Pulse Oximetry 98 08/12/22 20:38 Oxygen Delivery Method 08/12/22 20:38 Vital Signs Temperature 98.2 F 08/12/22 20:38 Pulse Rate 81 08/12/22 20:38 Respiratory Rate 18 08/12/22 20:38 Blood Pressure 124/76 08/12/22 20:38 Pulse Oximetry 98 08/12/22 20:38 Oxygen Delivery Method 08/12/22 20:38 Temperature 98.2 F 08/12/22 20:38 Pulse Rate 81 08/12/22 20:38 Respiratory Rate 18 08/12/22 20:38 Blood Pressure 124/76 08/12/22 20:38 Pulse Oximetry 98 08/12/22 20:38 Oxygen Delivery Method 08/12/22 20:38 Medical Decision Making Lab Data Labs: Lab Results 08/12/22 08/12/22 08/12/22 Range/Units 22:11 22:11 22:11 WBC 5.80 (4.50-11.00) K/uL RBC 4.04 (4.00-5.20) m/uL Hgb 13.2 (12.0-16.0) gm/dL Hct 38.8 (33.0-51.0) % MCV 96 (80-100) fL MCH 33 (26-34) pg MCHC 34 (32-36) gm/dL RDW Coeff of Claudette 12.0 (11.5-15.5) % Plt Count 262 (140-440) K/uL Neut % (Auto) 63.0 (42.0-72.0) % Lymph % (Auto) 27.2 (20-44) % [place] % (Auto) 7.4 (0.0-11.0) % Eos % (Auto) 1.7 (0.0-7.0) % Baso % (Auto) 0.5 (0.0-3.0) % Neut # (Auto) 3.65 (1.7-7.0) K/uL Lymph # (Auto) 1.58 (0.90-2.90) K/uL [place] # (Auto) 0.40 (0.00-0.90) K/UL Eos # (Auto) 0.10 (0.00-0.50) K/uL Baso # (Auto) 0.03 (0.00-0.30) K/uL Sodium 139 (135-149) mmol/L Potassium 3.5 L (3.6-5.1) mmol/L Chloride 104 (96-114) mmol/L Carbon Dioxide 26 (20-32) mmol/L BUN 14 (5-24) mg/dL Creatinine 0.8 (0.5-1.5) mg/dL Estimated Creat Clear 83.13 Estimated GFR 93 ml/min Glucose 126 H (60-115) mg/dL Lactate 1.2 (0.5-1.9) mmol/L Calcium 9.5 (8.4-10.6) mg/dL C-Reactive Protein 1.7 H (0.5-1.0) mg/dL Discharge Plan Discharge Clinical Impression: Facial cellulitis Patient Disposition: Home, Self-Care Condition: Stable Instructions: Cellulitis (ED) Additional Instructions: Continue your medications as prescribed. If you are not seeing significant improvement in the next 48 hours, you should return for re-evaluation. If at any time you have significant worsening redness, swelling, pain, or new symptoms such as fever, vomiting, chills, return to the emergency department. Prescriptions: No Action aripiprazole 5 mg tablet 5 mg PO DAILY methylphenidate HCl 54 mg tablet extended release 24hr 54 mg PO DAILY venlafaxine 150 mg capsule,extended release 24hr 150 mg PO DAILY methylphenidate HCl 10 mg tablet 10 mg PO DAILY@09 PRN metoprolol succinate 50 mg tablet extended release 24 hr 50 mg PO DAILY spironolactone 50 mg tablet 50 mg PO BID adalimumab 40 mg/0.4 mL pen injector kit 40 mg subcut QWEEK bupropion HCl 150 mg tablet sustained-release 12 hr 150 mg PO BID ruxolitinib 1.5 % cream 1.5 applic topical DAILY PRN methotrexate sodium 2.5 mg tablet 15 mg PO .1 x week folic acid 1 mg tablet 1 mg PO DAILY (DME) Accu-Chek Guide test strips Strip See Rx Instructions .ROUTE .MEDSUPPLY Qty: 10 Label Comments: TEST FOUR TIMES DAILY Rx Instructions: As directed nystatin 100,000 unit/gram powder 1 applic topical BID Qty: 60 8RF metformin 500 mg tablet extended release 24 hr 1,000 mg PO DAILY Qty: 180 1RF sulfamethoxazole-trimethoprim [Bactrim DS] 800-160 mg tablet 1 tab PO BID 7 Days Qty: 14 0RF amoxicillin-pot clavulanate 875-125 mg tablet 1 tab PO BID 7 Days Qty: 14 0RF diclofenac sodium 50 mg tablet,delayed release (DR/EC) 50 mg PO DAILY Qty: 120 0RF Follow Up/Referrals: Luis Ambriz MD [Primary Care Provider] - Stand Alone Forms: [facility] Info Instructions
[2022-08-12 22:17] LABS: Lactate* 1.2 mmol/L (0.5-1.9)
[2022-08-12 22:19] LABS: Basophils Absolute Auto 0.03 K/uL (0.00-0.30); Basophils Percent Auto 0.5 % (0.0-3.0); Eosinophils Percent Auto 1.7 % (0.0-7.0); Hematocrit 38.8 % (33.0-51.0); Hemoglobin* 13.2 gm/dL (12.0-16.0); Immature Granulocytes Abs Auto 0.01 K/uL (0.00-0.30); Immature Granulocytes Pct Auto 0.2 %; Lymphocytes Absolute Auto 1.58 K/uL (0.90-2.90); Lymphocytes Percent Auto 27.2 % (20-44); Mean Corpuscular HGB Conc 34 gm/dL (32-36); Mean Corpuscular Hemoglobin 33 pg (26-34); Mean Corpuscular Volume 96 fL (80-100); Monocytes Percent Auto 7.4 % (0.0-11.0); Neutrophils Absolute Auto 3.65 K/uL (1.7-7.0); Platelet Count* 262 K/uL (140-440); Red Blood Count 4.04 m/uL (4.00-5.20)
[2022-08-12 22:32] LABS: Slide Review Reflex No
[2022-08-12 22:36] LABS: Chloride* 104 mmol/L (96-114); Sodium* 139 mmol/L (135-149)
[2022-08-12 22:37] LABS: Potassium* 3.5 mmol/L (3.6-5.1)
[2022-08-12 22:39] LABS: Creatinine* 0.8 mg/dL (0.5-1.5); Est. Creatinine Clearance* 83.13; Estimated Glomerular Filt Rate 93 ml/min
[2022-08-12 22:40] LABS: Blood Urea Nitrogen* 14 mg/dL (5-24); Calcium* 9.5 mg/dL (8.4-10.6); Carbon Dioxide* 26 mmol/L (20-32); Glucose* 126 mg/dL (60-115)
[2022-08-12 22:43] LABS: C Reactive Protein* 1.7 mg/dL (0.5-1.0)
[2022-08-13] MEDS: cefTRIAXone 1 GM in 0.9 % SODIUM CHLORIDE Mini-bag 100 ML IVPB (00:11)
== END 2022-08-13 01:00 | disposition home or self-care (01) ==
PROVIDERS: Emergency Provider Emergency Medicine; PCP Family Medicine
DX: L03.211 Cellulitis of face (principal)
CPT/HCPCS: 36415; 70481; 80048; 83605; 85025; 86140; 96365; 99284; J0696; Q9967

== ENCOUNTER 2022-08-14 09:17 | Emergency (ER) | payer OTHER, SELFPAY ==
[2022-08-14 09:40] VITALS: BP 140/88; PULSE 76; RESP 18; TEMP 36.3; O2SAT 97; BMI 43.3
--- NOTE | 2022-08-14 10:53 | ED_ITS ---
HPI - Skin/Abscess/Foreign Bdy General Chief complaint: Skin/Abscess/Foreign Body Stated complaint: Cellulitis on face Time Seen by Provider: 08/14/22 10:00 History of Present Illness HPI narrative: This 47-year-old female has cellulitis on the right side of her face. She was seen 2 days ago here and had CT imaging and labs drawn. She was started on Augmentin and Bactrim which may sound like an overkill for a uncomplicated cellulitis. However she is on immunosuppressant medications including Humira and methotrexate to treat uveitis and hidradenitis suppurative. She has been taking these medicines for the past 6 or 8 months and during this time is had 4 episodes of cellulitis ostensibly due to her immune suppressed status. She has been taking these medicines prescribed a couple days ago and states that she is feeling better but has some concern because of perception that the redness has spread a bit on the right side of her face. She does not report any fevers. There is no sign of drainage or abscess. Related Data Home Medications Medication Instructions Recorded Confirmed adalimumab 40 mg/0.4 mL 40 mg subcut QWEEK 04/03/22 08/14/22 subcutaneous pen kit aripiprazole 5 mg tablet 5 mg PO DAILY 04/03/22 08/14/22 bupropion HCl 150 mg tablet,12 hr 150 mg PO BID 04/03/22 08/14/22 sustained-release methylphenidate HCl 10 mg tablet 10 mg PO DAILY@09 PRN 04/03/22 08/14/22 methylphenidate HCl 54 mg 54 mg PO DAILY 04/03/22 08/14/22 tablet,extended release 24 hr metoprolol succinate 50 mg 50 mg PO DAILY 04/03/22 08/14/22 tablet,extended release 24 hr spironolactone 50 mg tablet 50 mg PO BID 04/03/22 08/14/22 venlafaxine 150 mg 150 mg PO DAILY 04/03/22 08/14/22 capsule,extended release 24 hr blood sugar diagnostic (Accu-Chek #10 ea 04/06/22 08/12/22 Guide test strips) folic acid 1 mg tablet 1 mg PO DAILY 04/06/22 08/14/22 methotrexate sodium 2.5 mg tablet 15 mg PO .1 x week 04/06/22 08/14/22 Previous Rx's Medication Instructions Recorded metformin 500 mg tablet,extended 1,000 mg PO DAILY #180 tabs 04/06/22 release 24 hr nystatin 100,000 unit/gram topical 1 applic topical BID #60 grams 04/06/22 powder diclofenac sodium 50 mg 50 mg PO DAILY #120 tabs 07/10/22 tablet,delayed release amoxicillin 875 mg-potassium 1 tab PO BID 7 days #14 tabs 08/12/22 clavulanate 125 mg tablet sulfamethoxazole 800 1 tab PO BID 7 days #14 tabs 08/12/22 mg-trimethoprim 160 mg tablet (Bactrim DS) Allergies Allergy/AdvReac Type Severity Reaction Status Date / Time hydrocodone Allergy Mild Itching Verified 08/14/22 09:49 Review of Systems Status of ROS: Reports: 10 or more systems reviewed and unremarkable except as noted in History and below Narrative: Constitutional: No fevers, no weight gain or loss. Eyes: No discharge. No vision changes. HENT: No congestion, no sore throat, no ear pain. Cardiovascular: No chest pain, no palpitations. Respiratory: No shortness of breath, no wheezes, no cough. Gastrointestinal: No abdominal pain, no vomiting, no diarrhea. Genitourinary: No dysuria, no hematuria. Musculoskeletal: Normal range of motion. Skin: No rashes, no pruritis. Cellulitis on the right side of her face as described above. Neurological: No dizziness, weakness, sensory change, speech change. Endo/Heme/Allergies: No bruising or bleeding. No polydipsia. Pysch: no suicidality, no anxiety, no insomnia. All other systems reviewed and are negative. [facility] Medical History Amenorrhea Controlled type 2 diabetes mellitus Depression Dermatitis Difficulty sleeping Encounter for annual physical exam Excessive daytime sleepiness External hemorrhoids Hidradenitis suppurativa High risk medication use History of gestational diabetes mellitus (GDM) Hypertension Migraine headache Morbid obesity Myalgia and myositis Tinea versicolor Urinary incontinence Uveitis of left eye Surgical History Status post dilation and curettage Status post endometrial ablation (09/29/14) Status post hemorrhoidectomy (2013) Family History Other Breast cancer Social History Narrative: Lifelong nonsmoker. Drinks less than one alcoholic drink per week. 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 Full code Highest level of school completed/degree received: some college, no degree Smoking Status: Never smoker Do you use any of these nicotine containing products: None Second hand tobacco smoke exposure: Yes (father smoked) How often do you have a drink containing alcohol: 2-4 times a month Alcohol type details: ilia How many standard drinks containing alcohol do you have on a typical day: 1 or 2 How often do you have six or more drinks on one occasion: Never AUDIT-C Alcohol total score: 2 Non-prescribed substance use: denies use Caffeine: Yes (pop) Are you using contraception or practicing any form of control: No service: No Exam Narrative: Exam Narrative: Constitutional: Well-developed, well-nourished, no acute distress. HEENT: Normocephalic, atraumatic. There is no swelling around her eye and no pain when moving her eyes to range of motion. Neck: Normal range of motion. Nontender. Supple. Heart: Regular. No murmurs. Normal rate. Intact distal pulses. Lungs: Clear to auscultation. No chest discomfort. No wheezes, rhonchi, or rales. Abdomen: Normal bowel sounds. Nontender. No rebound tenderness. Genitalia: Deferred. Back: No midline tenderness. Normal range of motion. Extremities: Normal range of motion. No injury. Skin: Intact. No rash. Warm. Erythema with very minimal swelling on the right cheek. This does not involve her right eye or the ear. Neurologic: No altered sensation. No weakness. Alert and oriented. Psychiatric: No suicidality. No anxiety or depression. No insomnia. Nursing notes and vitals signs are reviewed. Const: Vital Signs, click to edit/add: Vital Signs - 24 hr 08/14/22 09:40 Temperature 97.4 F L Pulse Rate [Right Pulse Oximeter] 76 Respiratory Rate 18 Blood Pressure [Ri ght Forearm] 140/88 H Pulse Oximetry 97 Oxygen Delivery Me thod Room Air Course Vital Signs Vital signs: Initial Vital Signs Temperature 97.4 F L 08/14/22 09:40 Temperature Source Temporal Artery Scan 08/14/22 09:40 Pulse Rate 76 08/14/22 09:40 Respiratory Rate 18 08/14/22 09:40 Blood Pressure 140/88 H 08/14/22 09:40 Blood Pressure Mean 105 08/14/22 09:40 Blood Pressure Position Sitting 08/14/22 09:40 Pulse Oximetry 97 08/14/22 09:40 Oxygen Delivery Method 08/14/22 09:40 Vital Signs Temperature 97.4 F L 08/14/22 09:40 Pulse Rate 76 08/14/22 09:40 Respiratory Rate 18 08/14/22 09:40 Blood Pressure 140/88 H 08/14/22 09:40 Pulse Oximetry 97 08/14/22 09:40 Oxygen Delivery Method 08/14/22 09:40 Temperature 97.4 F L 08/14/22 09:40 Pulse Rate 76 08/14/22 09:40 Respiratory Rate 18 08/14/22 09:40 Blood Pressure 140/88 H 08/14/22 09:40 Pulse Oximetry 97 08/14/22 09:40 Oxygen Delivery Method 08/14/22 09:40 MDM - Skin/Abscess/Foreign Bdy MDM Narrative Medical decision making narrative: This patient is immune compromised because of medications to treat uveitis and hidradenitis suppurative. She has had 4 episodes now of cellulitis during these treatments. 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 Her vital signs today are normal and she states that she is improving. I reassured her with these results. The redness from cellulitis occasionally does spread for a day or 2 after treatment as begun. I did describe signs or symptoms that would indicate a need for return and re- evaluation. She is reassured with this. I did also discuss lab and imaging options which were declined in a process of shared decision making. She will continue with Bactrim and Augmentin and follow-up with her primary physician as scheduled. Discharge Plan Discharge Clinical Impression: Cellulitis Patient Disposition: Home, Self-Care Condition: Stable Additional Instructions: Continue current plans and medications. Follow-up with primary physicians or return if worsening symptoms happen. Prescriptions: No Action aripiprazole 5 mg tablet 5 mg PO DAILY methylphenidate HCl 54 mg tablet extended release 24hr 54 mg PO DAILY venlafaxine 150 mg capsule,extended release 24hr 150 mg PO DAILY methylphenidate HCl 10 mg tablet 10 mg PO DAILY@09 PRN metoprolol succinate 50 mg tablet extended release 24 hr 50 mg PO DAILY spironolactone 50 mg tablet 50 mg PO BID adalimumab 40 mg/0.4 mL pen injector kit 40 mg subcut QWEEK bupropion HCl 150 mg tablet sustained-release 12 hr 150 mg PO BID methotrexate sodium 2.5 mg tablet 15 mg PO .1 x week folic acid 1 mg tablet 1 mg PO DAILY (DME) Accu-Chek Guide test strips Strip See Rx Instructions .ROUTE .MEDSUPPLY Qty: 10 Label Comments: TEST FOUR TIMES DAILY Rx Instructions: As directed nystatin 100,000 unit/gram powder 1 applic topical BID Qty: 60 8RF metformin 500 mg tablet extended release 24 hr 1,000 mg PO DAILY Qty: 180 1RF sulfamethoxazole-trimethoprim [Bactrim DS] 800-160 mg tablet 1 tab PO BID 7 Days Qty: 14 0RF amoxicillin-pot clavulanate 875-125 mg tablet 1 tab PO BID 7 Days Qty: 14 0RF diclofenac sodium 50 mg tablet,delayed release (DR/EC) 50 mg PO DAILY Qty: 120 0RF Follow Up/Referrals: Luis Ambriz MD [Primary Care Provider] - Stand Alone Forms: [employer] Info Instructions
== END 2022-08-14 11:11 | disposition home or self-care (01) ==
PROVIDERS: Emergency Provider Emergency Medicine Emergency Medical Services; PCP Family Medicine
DX: L03.211 Cellulitis of face (principal)
CPT/HCPCS: 99283; 99284

== ENCOUNTER 2022-08-16 08:58 | Outpatient (CLI) | payer OTHER, SELFPAY ==
--- NOTE | 2022-08-16 09:15 | CRLHL7_ITS ---
For Patients: As a result of the Century Cures Act, medical imaging exams and procedure reports are released immediately into your electronic medical record. You may view this report before your referring provider. If you have questions, please contact your health care provider. BILATERAL SCREENING MAMMOGRAM WITH COMPUTER-AIDED DETECTION TECHNIQUE: CC and MLO views were obtained. These mammographic images have been obtained using full-field digital technique. These mammographic images were interpreted with the benefit of computer-aided detection. COMPARISON FILM: 09/10/19, 11/22/17. FINDINGS: There are scattered areas of fibroglandular density IMPRESSION: There is no radiographic evidence for malignancy. ASSESSMENT: BI-RADS Category 1: Negative RECOMMENDATION: Routine screening mammogram in 1 year. A lay language report of this examination will be provided to the patient. Jed Colón M.D. Diagnostic Radiologist [email or web address] Transcribed: 3:35 p.mJovita olivas/Dictated by: Jed Colón MD @ 08/16/2022 10:05:00 AM (Electronically Signed)
== END 2022-08-16 08:59 | disposition home or self-care (01) ==
LOC: MAMMO 08:58
PROVIDERS: PCP Family Medicine; Visit Provider Family Medicine
DX: Z12.31 Encounter for screening mammogram for malignant neoplasm of breast (principal)
CPT/HCPCS: 77063; 77067

== ENCOUNTER 2022-09-05 10:05 | Outpatient (CLI) | payer OTHER, SELFPAY | END 2022-09-05 10:06 | disposition home or self-care (01) | LOC: FRMREF 09-07 10:00 | PROVIDERS: PCP Family Medicine; Visit Provider Dermatology | DX: L08.9 Local infection of the skin and subcutaneous tissue, unspecified (principal); I10 Essential (primary) hypertension | CPT/HCPCS: 87070; 87186 ==

== ENCOUNTER 2022-09-25 09:49 | Outpatient (CLI) | payer OTHER, SELFPAY ==
[2022-09-25 10:14] LABS: Basophils Absolute Auto 0.03 K/uL (0.00-0.30); Basophils Percent Auto 0.6 % (0.0-3.0); Eosinophils Percent Auto 2.1 % (0.0-7.0); Hematocrit 40.1 % (33.0-51.0); Hemoglobin* 13.5 gm/dL (12.0-16.0); Immature Granulocytes Abs Auto 0.01 K/uL (0.00-0.30); Immature Granulocytes Pct Auto 0.2 %; Lymphocytes Absolute Auto 1.44 K/uL (0.90-2.90); Lymphocytes Percent Auto 30.9 % (20-44); Mean Corpuscular HGB Conc 34 gm/dL (32-36); Mean Corpuscular Hemoglobin 32 pg (26-34); Mean Corpuscular Volume 96 fL (80-100); Monocytes Percent Auto 7.9 % (0.0-11.0); Neutrophils Absolute Auto 2.71 K/uL (1.7-7.0); Neutrophils Percent Auto 58.3 % (42.0-72.0); Platelet Count* 267 K/uL (140-440); RDW Coefficient of Variation % 11.5 % (11.5-15.5); Red Blood Count 4.19 m/uL (4.00-5.20); White Blood Count* 4.66 K/uL (4.50-11.00)
[2022-09-25 10:20] LABS: Slide Review Reflex No
[2022-09-25 10:34] LABS: Chloride* 106 mmol/L (96-114)
[2022-09-25 10:35] LABS: Albumin* 4.1 g/dL (3.3-5.0); Potassium* 4.3 mmol/L (3.6-5.1); Sodium* 139 mmol/L (135-149)
[2022-09-25 10:38] LABS: Alanine Aminotransferase* 56 U/L (4-35); Alkaline Phosphatase* 62 U/L (40-150); Aspartate Amino Transferase* 39 U/L (12-35); Bilirubin Total* 0.5 mg/dL (0.1-1.5); Blood Urea Nitrogen* 15 mg/dL (5-24); Carbon Dioxide* 26 mmol/L (20-32); Creatinine* 0.7 mg/dL (0.5-1.5); Estimated Glomerular Filt Rate 109 ml/min; Glucose* 162 mg/dL (60-115); Total Protein* 7.2 g/dL (6.0-8.3)
[2022-09-25 10:39] LABS: Calcium* 9.1 mg/dL (8.4-10.6)
[2022-09-25 10:41] LABS: C Reactive Protein* 0.7 mg/dL (0.5-1.0)
[2022-09-25 10:51] LABS: Erythrocyte SedimentationRate* 5 mm/hr (2-20)
== END 2022-09-25 09:50 | disposition home or self-care (01) ==
PROVIDERS: PCP Family Medicine
DX: I10 Essential (primary) hypertension (principal); E78.00 Pure hypercholesterolemia, unspecified; E11.9 Type 2 diabetes mellitus without complications
CPT/HCPCS: 36415; 80053; 85025; 85651; 86140

== ENCOUNTER 2022-09-26 09:41 | Outpatient (CLI) | payer OTHER, SELFPAY ==
[2022-09-26 14:16] LABS: Creatinine Urine 124.8 mg/dL
[2022-09-26 14:20] LABS: Microalbumin Creatinine Ratio 0 mg/g (0-30); Microalbumin Urine 1 mg/dL
== END 2022-09-26 09:42 | disposition home or self-care (01) ==
LOC: LKVREF 09:42
PROVIDERS: PCP Family Medicine; Visit Provider Family Medicine
DX: E11.9 Type 2 diabetes mellitus without complications (principal); I10 Essential (primary) hypertension; E78.00 Pure hypercholesterolemia, unspecified
CPT/HCPCS: 82043; 82570

== ENCOUNTER 2023-04-17 11:22 | Outpatient (CLI) | payer OTHER, SELFPAY | END 2023-04-17 11:23 | disposition home or self-care (01) | PROVIDERS: PCP Family Medicine; Visit Provider Family Medicine | DX: R53.83 Other fatigue (principal); I10 Essential (primary) hypertension; E78.00 Pure hypercholesterolemia, unspecified; E66.01 Morbid (severe) obesity due to excess calories | CPT/HCPCS: 82607; 82652; 84443 ==

== ENCOUNTER 2023-08-05 15:16 | Outpatient (REF) | payer OTHER, SELFPAY ==
[2023-08-05 15:37] LABS: Basophils Absolute Auto 0.04 K/uL (0.00-0.30); Basophils Percent Auto 0.8 % (0.0-3.0); Eosinophils Absolute Auto 0.08 K/uL (0.00-0.50); Eosinophils Percent Auto 1.6 % (0.0-7.0); Hematocrit 40.9 % (33.0-51.0); Hemoglobin* 13.7 gm/dL (12.0-16.0); Immature Granulocytes Abs Auto 0.05 K/uL (0.00-0.30); Lymphocytes Absolute Auto 1.66 K/uL (0.90-2.90); Lymphocytes Percent Auto 32.7 % (20-44); Mean Corpuscular HGB Conc 34 gm/dL (32-36); Mean Corpuscular Hemoglobin 31 pg (26-34); Mean Corpuscular Volume 94 fL (80-100); Monocytes Percent Auto 6.1 % (0.0-11.0); Neutrophils Absolute Auto 2.93 K/uL (1.7-7.0); Neutrophils Percent Auto 57.8 % (42.0-72.0); Platelet Count* 286 K/uL (140-440); RDW Coefficient of Variation % 11.8 % (11.5-15.5); Red Blood Count 4.36 m/uL (4.00-5.20); White Blood Count* 5.07 K/uL (4.50-11.00)
[2023-08-05 15:40] LABS: Slide Review Reflex No
[2023-08-05 15:49] LABS: Albumin* 4.6 g/dL (3.3-5.0); Chloride* 105 mmol/L (96-114); Sodium* 139 mmol/L (135-149)
[2023-08-05 15:52] LABS: Alanine Aminotransferase* 47 U/L (4-35); Alkaline Phosphatase* 80 U/L (40-150); Anion Gap 10 mEq/L (7-15); Aspartate Amino Transferase* 37 U/L (12-35); Bilirubin Total* 1.1 mg/dL (0.1-1.5); Blood Urea Nitrogen* 15 mg/dL (5-24); Carbon Dioxide* 24 mmol/L (20-32); Creatinine* 0.9 mg/dL (0.5-1.5); Estimated Glomerular Filt Rate 80 ml/min; Total Protein* 7.7 g/dL (6.0-8.3)
[2023-08-05 15:53] LABS: Calcium* 9.6 mg/dL (8.4-10.6); Glucose* 95 mg/dL (60-115)
[2023-08-05 15:59] LABS: C Reactive Protein* < 0.5 mg/dL (0.5-1.0)
[2023-08-05 16:44] LABS: Erythrocyte SedimentationRate* 7 mm/hr (2-20)
== END 2023-08-05 15:17 | disposition home or self-care (01) ==
LOC: NPINS 15:16
PROVIDERS: PCP Family Medicine
DX: H30.23 Posterior cyclitis, bilateral (principal); Z79.899 Other long term (current) drug therapy
CPT/HCPCS: 80053; 85025; 85651; 86140

== ENCOUNTER 2023-09-24 14:33 | Outpatient (RCR) | payer OTHER, SELFPAY ==
[2023-09-24 16:26] LABS: Albumin* 4.3 g/dL (3.3-5.0); Chloride* 102 mmol/L (96-114)
[2023-09-24 16:27] LABS: Potassium* 4.1 mmol/L (3.6-5.1); Sodium* 137 mmol/L (135-149)
[2023-09-24 16:29] LABS: Alanine Aminotransferase* 50 U/L (4-35); Alkaline Phosphatase* 79 U/L (40-150); Anion Gap 9 mEq/L (7-15); Aspartate Amino Transferase* 42 U/L (12-35); Bilirubin Total* 1.2 mg/dL (0.1-1.5); Blood Urea Nitrogen* 15 mg/dL (5-24); Carbon Dioxide* 26 mmol/L (20-32); Cholesterol* 106 mg/dL (90-199); Creatinine* 0.9 mg/dL (0.5-1.5); Estimated Glomerular Filt Rate 80 ml/min; Total Protein* 7.7 g/dL (6.0-8.3)
[2023-09-24 16:30] LABS: Calcium* 9.8 mg/dL (8.4-10.6); Glucose* 71 mg/dL (60-115); HDL Cholesterol* 47 mg/dL (>=50); LDL Cholesterol Calculated 37 mg/dL (<100); Triglycerides* 110 mg/dL (40-149)
[2023-09-24 16:51] LABS: C Reactive Protein* < 0.5 mg/dL (0.5-1.0)
[2023-09-24 17:26] LABS: Basophils Absolute Auto 0.03 K/uL (0.00-0.30); Basophils Percent Auto 0.5 % (0.0-3.0); Eosinophils Percent Auto 1.5 % (0.0-7.0); Hematocrit 41.7 % (33.0-51.0); Hemoglobin* 14.1 gm/dL (12.0-16.0); Immature Granulocytes Abs Auto 0.01 K/uL (0.00-0.30); Immature Granulocytes Pct Auto 0.2 %; Lymphocytes Absolute Auto 2.14 K/uL (0.90-2.90); Lymphocytes Percent Auto 32.9 % (20-44); Mean Corpuscular HGB Conc 34 gm/dL (32-36); Mean Corpuscular Hemoglobin 32 pg (26-34); Mean Corpuscular Volume 94 fL (80-100); Monocytes Percent Auto 7.1 % (0.0-11.0); Neutrophils Absolute Auto 3.76 K/uL (1.7-7.0); Neutrophils Percent Auto 57.8 % (42.0-72.0); Platelet Count* 296 K/uL (140-440); Red Blood Count 4.46 m/uL (4.00-5.20)
[2023-09-24 17:32] LABS: Slide Review Reflex No
[2023-09-24 18:16] LABS: Hepatitis B Surface Antigen* Negative (Negative)
[2023-09-24 18:26] LABS: Erythrocyte SedimentationRate* 8 mm/hr (2-20)
[2023-09-24 18:33] LABS: Hepatitis C Virus Antibody* Negative (Negative)
[2023-09-26 17:05] LABS: Hepatitis B Core Antibodies Negative (Negative)
== END 2024-09-06 08:08 | disposition home or self-care (01) ==
LOC: LAB 14:33
PROVIDERS: PCP Family Medicine; Visit Provider Family Medicine
DX: Z79.899 Other long term (current) drug therapy (principal)
CPT/HCPCS: 36415; 80053; 80061; 85025; 85651; 86140; 86480; 86704; 86803; 87340

== ENCOUNTER 2023-09-25 19:44 | Outpatient (CLI) | payer OTHER, SELFPAY ==
--- OUTSIDE RECORDS SUMMARY | 2023-09-25 19:47 | XMS_ITS | Encounter Summary ---
Author Name Unknown Organization [place] Address [address] [place] [id number] Care Team Providers Care Veterinary Medical Officer Name Role Phone Bola Amor [facility], [facility] Unavailable [phone] Shaan Ramirez MD Unavailable [phone] Luis Ambriz MD Primary Care Provider [phone] MD Unavailable [phone] Nini Patten MD Unavailable [phone] Nini Patten MD Unavailable [phone] Margaret Reyes [facility] Unavailable Unavailable Reason for Visit * Reason Comments Refill Request methotrexate 2.5 MG tablet 60 tablet 1 08/20/2023 Encounter Details Date Type Department Care Team (Late st Contact Info) Description 08/20/2023 Refill [facility] [address] [phone] Adria Cisneros MD [address] [place] [address] [phone] Refill Request (methotrexate 2.5 MG tablet 60 tablet 1 08/20/2023) Social History Tobacco Use Types Packs/Day Years Used Date Smoking Tobacco: Never Smokeless Tobacco: Never PHQ-2 Answer Date Recorded PHQ-2 Score 2 05/10/2023 Adolescent Education Answer Date Record ed Getting School Help Needed Not on file 04/27 Sex and Gender Information Value Date Recorded Sex Assigned at Female 11/23/2021 4:43 PM CDT Gender Identity Female 11/23/2021 4:43 PM CDT Sexual Orientation Bisexual 11/23/2021 4: 43 PM CDT documented as of this encounter Miscellaneous Notes * Telephone Encounter - Tracey Lang RN - 08/23/2023 3:25 PM CST Images from the original note were not included. methotrexate 2.5 MG tablet 60 tablet 1 08/20/2023 Last Office Visit: 08/07/23 Future Office visit: 11/09/23 OUTSIDE LABS DONE 08/05/23 Routing refill request to provider for review/approval because: PROVIDER MUST AUTHORIZE Tracey Lang RN P Red Flag Triage/MRT ' OCOMPUTER SUPPORT SPECIALIST documented in this encounter Plan of Treatment Upcoming Encounters Date Type Department Care Team (Late st Contact Info) Description 10/16/2023 10:00 AM CDT Virtual Visit [facility] [address] [phone] Adria Cisneros MD [address] [place] [address] [phone] Margaret Reyes, [facility] 11/09/2023 9:00 AM CDT Virtual Visit [facility] [address] [phone] Adria Cisneros MD [address] [place] [address] [phone] 01/14/2024 10:00 AM CDT Office Visit [facility] - [address] [phone] Shaan Ramirez MD [address] [place] [phone] documented as of this encounter Visit Diagnoses Diagnosis Psoriasis Other psoriasis Intermediate uveitis of both eyes Hidradenitis suppurativa Hidradenitis documented in this encounter Additional Health Concerns Assessment Noted Time PHQ-9 Depression Total Score: 4 12/25/19 23 2:25 PM CDT documented as of this encounter Care Teams Veterinary Medical Officer Relationship Specialty Start Date End Date Luis Ambriz MD [address] [place] [address] PCP - General Family Medicine 02/16/22 Bola Amor, COMMODITY LOAN CLERK, [facility] [address] [address] Assigned Behavioral Health Provider 12/04/21 Shaan Ramirez MD [address] [place] [address] Assigned Surgical Provider 12/04/[address] MD [address] [place] [address] Assigned Rheumatology Provider 02/25/22 Nini Patten MD [address] [place] [address] Endocrinology, Diabetes, and Metabolism 08/29/22 Nini Patten MD [address] [place] [address] Assigned Endocrinology Provider 01/20/23 Margaret Reyes, [facility] Pharmacist 08/10/23 documented as of this encounter
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
--- OUTSIDE RECORDS SUMMARY | 2023-09-25 19:47 | XMS_ITS | Encounter Summary ---
Author Name Unknown Organization [place] Address [address] [place] [address] Care Team Providers Care Secretary Of Police Name Role Phone ZuleymaBola [facility], [facility] Unavailable [phone] Shaan Ramirez MD Unavailable [phone] Luis Ambriz MD Primary Care Provider [phone] MD Unavailable [phone] Nini Patten MD Unavailable [phone] Nini Patten MD Unavailable [phone] Margaret Reyes [facility] Unavailable Unavailable Encounter Details Date Type Department Care Team (Late st Contact Info) Description 08/31/2023 MyC Medical Advice [facility] [address] [place] [phone] Michael Masters Social History Tobacco Use Types Packs/Day Years [...] Description 10/16/2023 10:00 AM CDT Virtual Visit [facility] [address] [phone] Adria Cisneros MD [address] [place] [address] 495205 Eric Margaret M, [facility] 11/09/2023 9:00 AM CDT Virtual Visit [facility] [address] [place] [place] [phone] Adria Cisneros MD [address] [place] [address] 01/14/2024 10:00 AM CDT Office Visit [facility] Eye [address] 9 [facility] [address] [place] [phone] Shaan Ramirez MD [address] [place] [address] [phone] documented as of this encounter Visit Diagnoses Not on filedocumented in this encounter Additional Health Concerns Assessment Noted Time PHQ-9 Depression Total Score: 4 12/25/19 23 2:25 PM CDT documented as of this encounter Care Teams Secretary Of Police Relationship Specialty Start Date End Date Luis Ambriz MD [address] [place] [address] PCP - General Family Medicine 02/16/22 Bola Amor, APPLICATIONS SUPPORT SPECIALIST, [facility] [address] [place] [address] Assigned Behavioral Health Provider 12/04/21 Shaan Ramirez MD [address] [place] [address] Assigned Surgical Provider 12/04/[address] MD [address] [place] [address] Assigned Rheumatology Provider 02/25/22 Nini Patten MD [address] [place] [address] Endocrinology, Diabetes, and Metabolism 08/29/22 Nini Patten MD [address] [place] [address] Assigned Endocrinology Provider 01/20/23 Margaret Reyes [facility] Pharmacist 08/10/23 documented as of this encounter
--- OUTSIDE RECORDS SUMMARY | 2023-09-25 19:47 | XMS_ITS | Encounter Summary ---
Author Name Unknown Organization [place] Address [address] [place] [address] Care Team Providers Care Research Food Technologist Name Role Phone Bola Amor [facility], [facility] Unavailable [phone] Shaan Ramirez MD Unavailable [phone] Luis Ambriz MD Primary Care Provider [phone] MD Unavailable [phone] Nini Patten MD Unavailable [phone] Nini Patten MD Unavailable [phone] Margaret Reyes [facility] Unavailable Unavailable Encounter Details Date Type Department Care Team (Late st Contact Info) Description 09/10/2023 [facility] [address] [phone] Adria Cisneros MD [address] [place] [address] Social History Tobacco Use Types Packs/Day Years [...] Description 10/16/2023 10:00 AM CDT Virtual Visit [facility] [address] [phone] dAria Cisneros MD [address] [place] [address] [phone] Margaret Reyes, [facility] 11/09/2023 9:00 AM CDT Virtual Visit [facility] [address] [phone] Adria Cisneros MD [address] [place] [address] 960475 01/14/2024 10:00 AM CDT Office Visit [facility] Eye [address] [facility] [address] [place] [phone] Shaan Ramirez MD [address] [place] [address] 171815 documented as of this encounter Visit Diagnoses Not on filedocumented in this encounter Additional Health Concerns Assessment Noted Time PHQ-9 Depression Total Score: 4 12/25/19 23 2:25 PM CDT documented as of this encounter Care Teams Research Food Technologist Relationship Specialty Start Date End Date Luis Ambriz MD [address] [place] [address] PCP - General Family Medicine 02/16/22 Bola Amor, AUTOMATIC EDGER, [facility] [address] [facility] [address] [facility] [address] [place] [address] Assigned Behavioral Health Provider 12/04/21 Shaan Ramirez MD [address] [place] [address] [phone] Assigned Surgical Provider 12/04/[address] MD [address] [place] [address] 613645 Assigned Rheumatology Provider 02/25/22 Nini Patten MD [address] [place] [address] [phone] Endocrinology, Diabetes, and Metabolism 08/29/22 Nini Patten MD [address] [place] [address] 966105 Assigned Endocrinology Provider 01/20/23 Margaret Reyes [facility] Pharmacist 08/10/23 documented as of this encounter
--- OUTSIDE RECORDS SUMMARY | 2023-09-25 19:47 | XMS_ITS | Encounter Summary ---
Author Name Unknown Organization [place] Address [address] [place] [address] Care Team Providers Care Dramatic Reader Name Role Phone ZuleymaBola [facility], [facility] Unavailable [phone] Shaan Ramirez MD Unavailable [phone] Luis Ambriz MD Primary Care Provider [phone] MD Unavailable [phone] Nini Patten MD Unavailable [phone] Nini Patten MD Unavailable [phone] Margaret Reyes [facility] Unavailable Unavailable Encounter Details Date Type Department Care Team (Latest Contact Info) Description 09/24/2023 Travel Social History Tobacco Use Types Packs/Day [...] Description 10/16/2023 10:00 AM CDT Virtual Visit [facility] [address] [phone] Adria Cisneros MD [address] [place] [address] Margaret Reyes, [facility] 11/09/2023 9:00 AM CDT Virtual Visit [facility] [place] [address] [place] [phone] Adria Cisneros MD [address] [facility] 88 [place], [place] 884905 01/14/2024 10:00 AM CDT Office Visit [facility] [address] [facility] 9th Fl Clin [address] [place] [phone] Shaan Ramirez MD [address] [place] [address] 825915 documented as of this encounter Visit Diagnoses Not on filedocumented in this encounter Additional Health Concerns Assessment Noted Time PHQ-9 Depression Total Score: 4 12/25/19 23 2:25 PM CDT documented as of this encounter Care Teams Dramatic Reader Relationship Specialty Start Date End Date Luis Ambriz MD [address] [place] [address] [phone] PCP - General Family Medicine 02/16/22 Bola Amor, TREE FELLER OPERATOR, [facility] [address] [facility] 180 [place], [place] 124265 Assigned Behavioral Health Provider 12/04/21 Shaan Ramirez MD [address] [place] [address] 217335 Assigned Surgical Provider 12/04/[address] MD 420 [place], [place] 537355 Assigned Rheumatology Provider 02/25/22 Nini Patten MD [address] [place] [address] Endocrinology, Diabetes, and Metabolism 08/29/22 Nini Patten MD [address] [place] [address] Assigned Endocrinology Provider 01/20/23 Margaret Reyes [facility] Pharmacist 08/10/23 documented as of this encounter
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
--- OUTSIDE RECORDS SUMMARY | 2023-09-25 19:47 | XMS_ITS | Encounter Summary ---
Author Name Unknown Organization [employer] Address [address] [place] [id number] Care Team Providers Care Preparation Supervisor Freezing Name Role Phone [facility] Unavailable [phone] Shaan Ramirez MD Unavailable [phone] Luis Ambriz MD Primary Care Provider [phone] MD Unavailable [phone] Nini Patten MD Unavailable [phone] Nini Patten MD Unavailable [phone] Margaret Reyes [facility] Unavailable Unavailable Reason for Referral * (Routine) - Pending Review Specialty Diagnoses / Procedures Referred By Contac t Referred To Contact Diagnoses High risk medication use Procedures Erythrocyte sedimentation rate auto Shaan Ramirez MD [address] [place] [phone] Referral ID Status Reason Start Date Expiration Date V isits Requested Visits Authorized [id number] Pending Review 09/24/2023 09/23/2024 1 1 N ATTENDANT * (Routine) - Pending Review Specialty Diagnoses / Procedures Referred By Contac t Referred To Contact Diagnoses High risk medication use Procedures CRP inflammation Shaan Ramirez MD [address] [place] [address] [phone] Referral ID Status Reason Start Date Expiration Date V isits Requested Visits Authorized [id number] Pending Review 09/24/2023 09/23/2024 1 1 N ATTENDANT * (Routine) - Pending Review Specialty Diagnoses / Procedures Referred By Contac t Referred To Contact Diagnoses High risk medication use Procedures Lipid panel reflex to direct LDL Fasting Shaan Ramirez MD [address] [place] [address] [phone] Referral ID Status Reason Start Date Expiration Date V isits Requested Visits Authorized [id number] Pending Review 09/24/2023 09/23/2024 1 1 N ATTENDANT * (Routine) - Pending Review Specialty Diagnoses / Procedures Referred By Contac t Referred To Contact Diagnoses High risk medication use Procedures Hepatitis B core antibody Shaan Ramirez MD [address] [place] [address] [phone] Referral ID Status Reason Start Date Expiration Date V isits Requested Visits Authorized [id number] Pending Review 09/24/2023 09/23/2024 1 1 N ATTENDANT * (Routine) - Pending Review Specialty Diagnoses / Procedures Referred By Contac t Referred To Contact Diagnoses High risk medication use Procedures Quantiferon-TB Gold Plus Shaan Ramirez MD [address] [place] [address] [phone] Referral ID Status Reason Start Date Expiration Date V isits Requested Visits Authorized [id number] Pending Review 09/24/2023 09/23/2024 1 1 N ATTENDANT * (Routine) - Pending Review Specialty Diagnoses / Procedures Referred By Contac t Referred To Contact Diagnoses High risk medication use Procedures Hepatitis C antibody Shaan Ramirez MD [address] [place] [address] [phone] Referral ID Status Reason Start Date Expiration Date V isits Requested Visits Authorized [id number] Pending Review 09/24/2023 09/23/2024 1 1 N ATTENDANT * (Routine) - Pending Review Specialty Diagnoses / Procedures Referred By Contac t Referred To Contact Diagnoses High risk medication use Procedures Hepatitis B surface antigen Shaan Ramirez MD [address] [place] [address] [phone] Referral ID Status Reason Start Date Expiration Date V isits Requested Visits Authorized [id number] Pending Review 09/24/2023 09/23/2024 1 1 N ATTENDANT * (Routine) - Pending Review Specialty Diagnoses / Procedures Referred By Contac t Referred To Contact Diagnoses High risk medication use Procedures Comprehensive metabolic panel Shaan Ramirez MD [address] [place] [address] [phone] Referral ID Status Reason Start Date Expiration Date V isits Requested Visits Authorized [id number] Pending Review 09/24/2023 09/23/2024 1 1 N ATTENDANT * (Routine) - Pending Review Specialty Diagnoses / Procedures Referred By Contac t Referred To Contact Diagnoses High risk medication use Procedures CBC with Platelets & Differential Shaan Ramirez MD [address] [place] [phone] Referral ID Status Reason Start Date Expiration Date V isits Requested Visits Authorized [id number] Pending Review 09/24/2023 09/23/2024 1 1 N ATTENDANT Reason for Visit * Reason Comments Uveitis Follow-Up Encounter Details Date Type Department Care Team (Late st Contact Info) Description 09/24/2023 10:30 AM LINEN ATTENDANT Office Visit [place] [address] [facility] [address] [facility] [address] [place] [address] Shaan Ramirez MD [address] [place] [phone] Recurrent iritis, bilateral (Primary Dx); Intermediate uveitis of both eyes; Cystoid macular edema of both eyes; High risk medication use Social History Tobacco Use Types Packs/Day Years [...] PM CDT documented as of this encounter Patient Instructions * Patient Instructions* Shaan Ramirez MD - 09/24/2023 10:30 AM LINEN ATTENDANT Recommend additional testing. We printed new orders which were the equivalent of Dr. Cisneros's andyou can take these to [facility]. We consolidated into 9 orders total (CBC, CMP, Hep B Surface Ag, Hep B Core Ab, Hep C, ESR, CRP, Quantiferon for TB, Lipid panel). I'll message you about labs once I get them back. Continue these medications: Oral methotrexate 12.5 mg weekly, Folic acid vitamin daily. No specificneed to modify methotrexate nor add prednisone Okay to start Xeljanz soon No drops or other treatments needed N ATTENDANT documented in this encounter Progress Notes * Shaan Ramirez MD - 09/24/2023 10:30 AM CST Chief Complaint/Presenting Concern: Uveitis follow up Interval History of Present Ocular Illness: Amelia Sr is a 48 year old patient who returns for follow up of her intermediate uveitis. Last visit we supported methotrexate use with possible plans to add Xeljanz. As below, Xeljanz will be started soon. Methotrexate still going well. Eye are good other than mildflashes left eye Interval Updates to Medical/Family/Social History: 1.Plan to start Xeljanz soon. 2. Hidradentis doing okay. Few spots from time to time, but none progressing to big sores. 3. Had fun [employer] convention Relevant Review of Systems Updates: Recent cold symptoms and some ear fullness 2. 40 pound weight loss with Ozempic with occasional nausea but not bad Labs: 07/2023:CMP WNL other than slgihtly elevated AST and ALT Current eye related medications: Oral methotrexate 12.5 mg weekly, Folic acid vitamin daily, no drops, will start Xeljanz zoon Retina/Uveitis Imaging: OCT Spectralis Macula September 24, 2023 right eye: Minimal NFL thickening, no PP fluid. Normal foveal contour, no fluid stable. left eye: Minimal NFL thickening, no PP fluid. Normal foveal contour, no fluid stable. Optos FA September 24, 2023 right eye: Disc but no leakage. Peripheral leakage slightly increased versus 10/2022. left eye: Normal transit. Disc but no leakage. Peripheral leakage slightly increased versus 10/2022. Assessment: 1. Recurrent iritis, bilateral No cell right eye, trace cell left eye 2. Intermediate uveitis of both eyes Some peripheral leakage but none central 3. Cystoid macular edema of both eyes None by OCT nor angiography 4. High risk medication use Oral methotrexate 12.5 mg weekly. Plan/Recommendations: Discussed findings with patient. The eyes are doing well with only minimal inflammation in the front of the left eye. Although the retinal angiogram shows more inflammation compared to October 2022, that was at a time when Amelia was just coming off Humira and Methotrexate. Also, there is no active inflammation no retinal edema in the back of either eye today. We can continue Methotrexate at the current dose and anticipate there may be more improvement with the addition of Xeljanz Eye pressure is normal in each eye Recommend additional testing. We printed new orders which were the equivalent of Dr. Cisneros's andyou can take these to [facility]. We consolidated into 9 orders total (CBC, CMP, Hep B Surface Ag, Hep B Core Ab, Hep C, ESR, CRP, Quantiferon for TB, Lipid panel) Continue these medications: Oral methotrexate 12.5 mg weekly, Folic acid vitamin daily. No specificneed to modify methotrexate nor add prednisone Okay to start Xeljanz soon No drops or other treatments needed RTC Early January marita brandt, VERONIQUE (ordered)--plan to repeat angiogram late 2023-early 2024 Physician Attestation Attending Physician Attestation: Complete documentation of historical and exam elements from today's encounter can be found in the full encounter summary report (not reduplicated in this progress note). I personally obtained the chief complaint(s) and history of present illness. I confirmed and edited as necessary the review of systems, past medical/surgical history, family history, social history, and examination findings as documented by others; and I examined the patient myself. I personallyreviewed the relevant tests, images, and reports as documented above. I formulated and edited as necessary the assessment and plan and discussed the findings and management plan with the patient and family members present at the time of this visit. Shaan Ramirez M.D., Uveitis and Medical Retina, September 24, 2023 N ATTENDANT documented in this encounter Nursing Notes * Mirta Nathan - 09/24/2023 10:30 AM CST Chief Complaints and History of Present Illnesses Patient presents with Uveitis Follow-Up Chief Complaint(s) and History of Present Illness(es) Uveitis Follow-Up Laterality: both eyes Onset: gradual Onset: months ago Quality: States va is the same since last visit Severity: moderate Frequency: intermittently Associated symptoms: flashes and floaters. Negative for photophobia Treatments tried: no treatments Pain scale: 0/10 Comments Here for Intermediate uveitis of both eyes Methotrexate Mirta Nathan COT 10:33 AM September 24, 2023 N ATTENDANT documented in this encounter Plan of Treatment Upcoming Encounters Date Type Department Care Team (Late st Contact Info) Description 10/16/2023 10:00 AM CDT Virtual Visit [facility] [address] [address] Adria Cisneros MD [address] [place] [id number] Margaret Reyes, [facility] 11/09/2023 9:00 AM CDT Virtual Visit [facility] [place] [address] [place] [phone] Adria Cisneros MD [address] [place] [phone] 01/14/2024 10:00 AM CDT Office Visit [facility] Eye [address] [facility] [address] [place] [phone] Shaan Ramirez MD [address] [place] [address] [phone] Scheduled Orders Name Type Priority Associated Diagnoses Orde r Schedule CBC with Platelets & Differential Lab Panel Routine High risk medication use Expected: 09/24/2023 (Approximate), Expires: 12/23/2023 Comprehensive metabolic panel Lab Routine High risk medication use Expected: 09/24/2023 (Approximate), Expires: 12/23/2023 Hepatitis B surface antigen Lab Routine High risk medication use Expected: 09/24/2023 (Approximate), Expires: 12/23/2023 Hepatitis C antibody Lab Routine High risk medication use Expected: 09/24/2023 (Approximate), Expires: 12/23/2023 Quantiferon-TB Gold Plus Lab Panel Routine High risk medication use Expected: 09/24/2023 (Approximate), Expires: 12/23/2023 Hepatitis B core antibody Lab Routine High risk medication use Expected: 09/24/2023 (Approximate), Expires: 12/23/2023 Lipid panel reflex to direct LDL Fasting Lab Routine High risk medication use Expected: 09/24/2023 (Approximate), Expires: 12/23/2023 CRP inflammation Lab Routine High risk medication use Expected: 09/24/2023 (Approximate), Expires: 12/23/2023 Erythrocyte sedimentation rate auto Lab Routine High risk medication use Expected: 09/24/2023 (Approximate), Expires: 12/23/2023 documented as of this encounter Procedures Procedure Name Priority Date/Time Associated Diagnosis Comments FLUORESCEIN ANGIOGRAPHY OU (BOTH EYES) Routine 09/24/2023 12:23 PM LINEN ATTENDANT Intermediate uveitis of both eyes OCT RETINA SPECTRALIS OU (BOTH EYE) Routine 09/24/2023 12:23 PM LINEN ATTENDANT Intermediate uveitis of both eyes documented in this encounter Results * Fluorescein Angiography OU (both eyes) (09/24/2023 12:23 PM LINEN ATTENDANT) Shaan Rocah MD - 09/24/2023 12:23 PM LINEN ATTENDANT Performed by: EG . Patient cooperation: Reliable [...] Spectralis OU (both eyes) (09/24/2023 12:23 PM LINEN ATTENDANT) Shaan Rocha MD - 09/24/2023 12:23 PM LINEN ATTENDANT Performed by: EG . Patient cooperation: Reliable [...] no fluid stable. 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 High risk medication use Encounter for long-term (current) use of other medications documented in this encounter Additional Health Concerns Assessment Noted Time PHQ-9 Depression Total Score: 4 12/25/19 23 2:25 PM CDT documented as of this encounter Care Teams Preparation Supervisor Freezing Relationship Specialty Start Date End Date Luis Ambriz MD [address] [place] [address] PCP - General Family Medicine 02/16/22 Bola Amor, [facility], [facility] [address] [id number] Assigned Behavioral Health Provider 12/04/21 Shaan Ramirez MD [address] [place] [address] [phone] Assigned Surgical Provider 12/04/[address] MD [address] [place] [address] [phone] Assigned Rheumatology Provider 02/25/22 Nini Patten MD [address] [place] [address] [phone] Endocrinology, Diabetes, and Metabolism 08/29/22 Nini Patten MD [address] [place] [id number] Assigned Endocrinology Provider 01/20/23 Margaret Reyes, [facility] Pharmacist 08/10/23 documented as of this encounter
--- OUTSIDE RECORDS SUMMARY | 2023-09-25 19:48 | XMS_ITS | Encounter Summary ---
Author Name Unknown Organization [place] Address [address] [place] [address] Care Team Providers Care Housekeeping Coordinator Name Role Phone Bola Amor [facility], [facility] Unavailable [phone] Shaan Ramirez MD Unavailable [phone] Luis Ambriz MD Primary Care Provider [phone] MD Unavailable [phone] Nini Patten MD Unavailable [phone] Nini Patten MD Unavailable [phone] Reason for Visit * Reason Comments RECHECK Follow up with [facility] Encounter Details Date Type Department Care Team (Late st Contact Info) Description 05/17/2023 8:00 AM CDT Office Visit [facility] [address] [phone] MD [address] [place] [address] Intermediate uveitis of both eyes (Primary Dx); Psoriasis; Hidradenitis suppurativa; High risk medication use Social History Tobacco [...] PM CDT documented as of this encounter Last Filed [...] Mass Index 39.48 05/17/2023 7:50 AM CDT documented in this encounter Progress Notes * Richmond Lane MD - 05/17/2023 8:00 AM CDT Name: Amelia Sr Today's date: 05/17/2023 Date of last visit: 01/26/23 Date of initial consultation: 02/03/2022 Reason for follow-up: High risk medication management/ recurrent inflammatory eye disease/ psoriasis Requesting physician: Shaan Ramirez MD Assessment & Plan: #persistent/recurrent uveitis/iritis/cystoid macular edema #high risk medication use: starting methotrexate today. --Risks and benefits of methotrexate discussed today to include infection, BM suppression, GI/hepatoxicity, malignancy among others. Patient knows not to consume ETOH. Patient knows the drug is not compatible with conception/. Patient is agreeable. #psoriasis 47 year old female with a history of recurrent/persistent iritis/intermediate uveitis, and cystoid macular edema who follows closely with Dr Ramirez of ophthalmology. 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 None was identified at hat time and again today by history/exam and review of serologies with negative/normal LEE, RF, ESR/CRP, HLA-B27, angiotensin converting enzyme, CCP, MPO, quant gold/Hep B/C/HIV. She did have axial pain/stiffness which had some features by history that were inflammatory by nature so xray of SI joints obtained and did not show any erosions or ankylosis, it did show mild sclerosis of bilateral SI joints onthe iliac aspect caudally. She saw Dr Ramirez most recently on 02/02/23. At that time she had return of active uveitis/iritis bilaterally. She was restarted on topical therapy with consideration for us today to restart systemic immunosuppression with methotrexate. She also has ongoing severe psoriatic lesions about the scalp and external auditory canal/pinnae bilaterally. PLAN: -Restart methotrexate 12.5mg once weekly -continue on folic acid 1mg once daily -Will follow-up in 3 months time, with routine screening drug toxicity monitoring labs the week or so prior -continue follow-up with Dr Ramirez as planned. If she has ongoing active disease we can consider increasing her methotrexate. Or, if her skin remains active but her eyes are quiet we could consideraddition of francine inhibitor rinvoq vs xeljanz. She has a strong family history of MS and would be hesitant to return to TNF inhibitors as a result. Richmond Lane MD Rheumatology Subjective: Interval history -saw Dr Ramirez on 02/02/23 -at that time trace cells in vitreous right eye trace to 1+ vitreous cells with 2 small snowballs in the left eye. Continues to have recurrent iritis bilaterally with some mild activity on that date.There was discussion that given slight increase in inflammation now 4 months off of Humira and methotrexate that disease is starting to return in the left eye. Plan was to continue with topical therapy and perhaps to restart methotrexate 10 to 15 mg weekly at the time of her visit with me today. -Amelia reported experiencing white flashes in the corner of her left eye, with no pain, redness, orsubjective swelling. She also mentioned noticing floaters though these have been relatively stable.She denied any difficulty looking at light with photophobia. -Regarding her hidradenitis suppurativa (HS), Amelia mentioned that she has been managing mostly okay, with one major sore since the last visit. Otherwise it has been relatively quiet. -From a cutaneous perspective her biggest complaint is that of ongoing psoriasis mostly affecting her scalp and ears. It is severe. 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 -he also reported that she has not had any issues with infections since completing her antibiotic course. -She mentioned her family history of autoimmune diseases, including her mother having multiple sclerosis (MS) and her sister having mild HS and MS. -14 point ROS collected and negative if not documented above. Interval History January 26, 2023 -saw Dr Ramirez on 10/27/22. Was off of humira and methotrexate at that time. There was question whether she was going to restart either of those or start another therapy by dermatology. -has been off of humira and methotrexate, since at least october -notices occasional flashes, maybe one or two. Then nothing for a while. Some floaters, that are new-er. The latter have faded. Flashes once a week or so. On medication none of either. Floaters. -No vision changes that she can notice -has had a couple of small manageble HS lesions, in the groin. Not what she considers bad. Also with psoriatic lesions inside ear canal and outside. Using topical rinvoq which if she uses she does find helpful -MSK symptoms quiet -14 point ROS collected and negative if not documented above. Interval history 08/11/2022 - Amelia saw Dr. Ramirez on 06/20/2022 at the time reported a few floaters which were stable. Also some flashing lights on and off while driving. Dr. Ramirez assessment that day was that her intermediate uveitis was quiet. No cystoid macular edema bilaterally. At overall her ocular inflammation was well controlled on this regimen. -interval soft tissue skin infection for right ear is the second time that this is happened. She required IV antibiotics followed by an oral treatment course. Given the recurrent infections there wasa question raised by Dr. Ramirez given lack of ocular inflammation on her most recent exam as to whether she would benefit from a reduction in the dose of methotrexate or dosing interval of Humira. - She continues on Humira 40 mg q. 7 days and methotrexate 15 mg once weekly along with folic acid 1 mg daily. Apart from recurrent infections, no noticeable side effects from either therapy. -Had SI joint films done on 03/20/22 which showed no evidence of erosion or ankylosis of either SI joint. Mild sclerosis at bilateral sacroiliac joint particularly on the iliac aspect caudally. -Has been admitted twice for cellulitis, has baseline pruritis->scratches->infection develops. -She has been prescribed ruxolitinib. The opselora is very effective, resolves skin symptoms prior to developing infection effectively. Keeps it away for a month or so. Also normally different nails,so these have been a bigger issue breaking the skin->infection. When using topical ruxolitinib she reports that she does not develop skin/soft tissue infections. Has not been as vigilant using hertopical therapy as she had been in the past. She has been better about this lately and it has been very helpful.-Since her last visit, reports 2 infections on the left side and 1 on the right side -oral infection as well -Had cholecystectomy -Prior to the above infections, had one ear infections in November 2021 and May 2021. None prior to that. ROS otherwise negative. HPI from initial consultation February 2022 About once per month will have small cutaneous lesions on hands and in her ears, uses topical steroid which resolves her eczema within a few days. In general joints ok. Has mild OA in digits/hands/wrists. Uses diclofenac daily, once daily. Rarely uses the gel. Currently on 20mg prednisone and humira q2 weeks. Tolerating humira without side effects, injection site or other. Tested positive for COVID last week. Missed 2 doses of prednisone and [...] epistaxis/hemoptysis. No symptoms consistent with raynauds. No rash,psoriatic or other. No photosensitive rashes. 14 point ROS collected and otherwise negative. Past Medical History Past Medical History: Diagnosis Date Diabetes (H) Heterochromia of iris of left eye Hypertension Recurrent iritis, bilateral Uveitis Past Surgical History Past Surgical History: Procedure Laterality Date DENTAL SURGERY TUBAL LIGATION Medications Current Outpatient Medications Medication ARIPiprazole (ABILIFY) 5 MG tablet blood glucose (ACCU-CHEK GUIDE) test strip buPROPion (WELLBUTRIN SR) 150 MG 12 hr tablet CONCERTA 54 MG CR tablet diclofenac (VOLTAREN) 50 MG EC tablet folic acid (FOLVITE) 1 MG tablet ibuprofen (ADVIL/MOTRIN) 200 MG tablet losartan (COZAAR) 25 MG tablet metFORMIN (GLUCOPHAGE-XR) 500 MG 24 hr tablet metoprolol succinate ER (TOPROL-XL) 50 MG 24 hr tablet prednisoLONE acetate (PRED FORTE) 1 % ophthalmic suspension rosuvastatin (CRESTOR) 10 MG tablet Ruxolitinib Phosphate (OPZELURA EX) Semaglutide, 1 MG/DOSE, (OZEMPIC) 4 MG/3ML pen spironolactone (ALDACTONE) 50 MG tablet venlafaxine (EFFEXOR-XR) 150 MG 24 hr capsule No current facility-administered medications for this visit. Allergies Allergies Allergen Reactions Hydrocodone-Acetaminophen Hives and Itching Lavandula Latifolia Cough and Other (See Comments) Lavender Oil Cough Family History: mother with MS, dx 4 years before she . Started with optic neuritis. 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 Never smoker (father was). Never drug user. Rare ETOH use. with one son. Objective: Physical exam: BP 116/80 Pulse 93 Ht 1.676 m (5' 6) Wt 110.9 kg (244 lb 9.6 oz) BMI 39.48 kg/m?? Sitting up unassisted NAD Sclera are clear Has severe scalp and auricular psoriatic plaques bilaterally Breathing comfortably on room air. No use of accessory muscles. No cough. No audible wheeze Fluid movement of bilateral shoulders, elbows, wrists, MCPs, PIPs, DIPs. Labs: WBC Count Date Value Ref Range Status 02/02/2023 7.8 4.0 - 11.0 10e3/uL Final Hemoglobin Date Value Ref Range Status 02/02/2023 14.1 11.7 - 15.7 g/dL Final Platelet Count Date Value Ref Range Status 02/02/2023 302 150 - 450 10e3/uL Final Creatinine Date Value Ref Range Status 02/02/2023 0.92 0.51 - 0.95 mg/dL Final Lab Results Component Value Date ALKPHOS 56 03/20/2022 AST Date Value Ref Range Status 02/02/2023 34 0 - 45 U/L Final Comment: Reference intervals for this test were updated on 01/15/2023 to more accurately reflect our healthy population. There may be differences in the flagging of prior results with similar values performed with this method. Interpretation of those prior results can be made in the context of the updated reference intervals. Lab Results Component Value Date ALT 49 03/20/2022 Erythrocyte Sedimentation Rate Date Value Ref Range Status 02/02/2023 10 0 - 20 mm/hr Final CRP Inflammation Date Value Ref Range Status 03/20/2022 <2.9 0.0 - 8.0 mg/L Final UA RESULTS: No results for input(s): COLOR, APPEARANCE, URINEGLC, URINEBILI, URINEKETONE, SG, UBLD, URINEPH, PROTEIN, UROBILINOGEN, NITRITE, LEUKEST, RBCU, WBCU in the last 74624 hours. No results found for: ANAIGG, ANAP1, MELLISA, DNA, ENASMI, RNPIGG, ENASSA, ENASSB, C3COM, C4COM, CKTOTAL, ALDOLASE, RHF, CCPIGG, ANCA, MPOIGG, PR3IGG Imagin views sacroiliac joint radiographs 03/20/2022 1:31 PM History: Evaluate for Sacroilitis or Sclerosis; Intermediate uveitis of both eyes; High risk medication use; Inflammatory back pain Comparison: None available. Findings: Outlet, 3 bilateral oblique views of the bilateral sacroiliac joints obtained. No acute osseous abnormality. No evidence of erosion or ankylosis on either sacroiliac joint. Mild sclerosis at the bilateral sacroiliac joint particularly on the iliac aspect caudally. No radiographic evidence of erosion. Hip joint spaces are relatively preserved. Presumed fallopian occluder device, only one seen in the field of view. Pelvic phlebolith. Impression: Mild sclerosis at the bilateral sacroiliac joint particularly on the iliac aspect caudally. MRI head/orbits from 12/09/21 which was normal documented in this encounter Nursing Notes * Demetria Brambila CMA - 05/17/2023 8:00 AM CDT Chief Complaint Patient presents with RECHECK Follow up with [facility] BP 116/80 Pulse 93 Ht 1.676 m (5' 6) Wt 110.9 kg (244 lb 9.6 oz) BMI 39.48 kg/m?? Demetria Brambila CMA on 05/17/2023 at 7:51 AM documented in this encounter Plan of Treatment Upcoming Encounters Date Type Department Care Team (Late st Contact Info) Description 10/16/2023 10:00 AM CDT Virtual Visit [facility] [address] [phone] Adria Cisneros MD [address] [place] [address] [phone] Margaret Reyes, [facility] 11/09/2023 9:00 AM CDT Virtual Visit [facility] [address] [phone] Adria Cisneros MD [address] [place] [address] [phone] 01/14/2024 10:00 AM CDT Office Visit [facility] - [address] Clin [address] [place] [phone] Shaan Ramirez MD [address] [place] [address] documented as of this encounter Visit Diagnoses Diagnosis Intermediate uveitis of both eyes- Primary Psoriasis Other psoriasis Hidradenitis suppurativa Hidradenitis High risk medication use Encounter for long-term (current) use of other medications documented in this encounter Additional Health Concerns Assessment Noted Time PHQ-9 Depression Total Score: 4 12/25/19 23 2:25 PM CDT documented as of this encounter Care Teams Housekeeping Coordinator Relationship Specialty Start Date End Date Luis Ambriz MD [address] [place] [address] PCP - General Family Medicine 02/16/22 Bola Amor, STATION DETECTIVE, [facility] [address] [place] [address]326 Assigned Behavioral Health Provider 12/04/21 Shaan Ramirez MD [address] [place] [address]6877 Assigned Surgical Provider 12/04/[address] MD [address] [place] [address] Assigned Rheumatology Provider 02/25/22 Nini Patten MD [address] [place] [address] Endocrinology, Diabetes, and Metabolism 08/29/22 Nini Patten MD [address] [place] [address] 135[address] Assigned Endocrinology Provider 01/20/23 documented as of this encounter
--- OUTSIDE RECORDS SUMMARY | 2023-09-25 19:48 | XMS_ITS | Encounter Summary ---
Author Name Unknown Organization [place] Address [address] [place] [address] Care Team Providers Care Director Of Ancillary Services Name Role Phone Bola Amor [facility], [facility] Unavailable [phone] Shaan Ramirez MD Unavailable [phone] Luis Ambriz MD Primary Care Provider [phone] MD Unavailable [phone] Nini Patten MD Unavailable [phone] Nini Patten MD Unavailable [phone] Margaret Reyes [facility] Unavailable Unavailable Encounter Details Date Type Department Care Team (Latest Contact Info) Description 08/07/2023 [facility] Rheumatology Clinic [address] [phone] Cheryl Klein RN High risk medication use (Primary Dx) Social History Tobacco Use Types Packs/Day Years [...] encounter Miscellaneous Notes * Telephone Encounter - Leni Cisneros MD - 08/09/2023 10:08 PM FIELD PIPE LINES SUPERVISOR Thanks for sending labs. Liver tests are mildly off; other tests look fine. I recommend repeating AST and ALT in 1 month. D PIPE LINES SUPERVISOR * Addendum Note - Cheryl Klein, RN - 08/07/2023 4:13 PM CSTAddended by: CHERYL KLEIN on: 08/10/2023 07:50 AM Modules accepted: Orders D PIPE LINES SUPERVISOR * Addendum Note - Cheryl Klein RN - 08/07/2023 4:13 PM CSTAddended by: CHERYL KLEIN on: 08/10/2023 10:45 AM Modules accepted: Orders D PIPE LINES SUPERVISOR * Addendum Note - Leni Cisneros MD - 08/07/2023 4:13 PM CSTAddended by: LENI CISNEROS on: 08/12/2023 10:09 PM Modules accepted: Orders D PIPE LINES SUPERVISOR documented in this encounter Plan of Treatment Upcoming Encounters Date Type Department Care Team (Late st Contact Info) Description 10/16/2023 10:00 AM CDT Virtual Visit [facility] Rheumatology Clinic [address] [phone] Leni Cisneros MD [address] [place] [address] [phone] Margaret Reyes [facility] 11/09/2023 9:00 AM CDT Virtual Visit [facility] Rhe[facility]ology Clinic [address] [phone] Leni Cisneros MD [address] [place] [address] 01/14/2024 10:00 AM CDT Office Visit [facility] Eye Clinic - [facility] [address] [facility] [address] Clin [address] [place] [address] Shaan Ramirez MD [address] [place] [address] [phone] Scheduled Orders Name Type Priority Associated Diagnoses Orde r Schedule ALT Lab Routine High risk medication use Expected: 09/19/2023 (Approximate), Expires: 02/09/2024 AST Lab Routine High risk medication use Expected: 09/19/2023 (Approximate), Expires: 02/09/2024 documented as of this encounter Visit Diagnoses Diagnosis High risk medication use- Primary Encounter for long-term (current) use of other medications documented in this encounter Additional Health Concerns Assessment Noted Time PHQ-9 Depression Total Score: 4 12/25/19 23 2:25 PM CDT documented as of this encounter Care Teams Director Of Ancillary Services Relationship Specialty Start Date End Date Luis Ambriz MD [address] [place] [address] PCP - General Family Medicine 02/16/22 Bola Amor, EFFICIENCY MINER BLASTING, [facility] [address] [place] [address]66 Assigned Behavioral Health Provider 12/04/21 Shaan Ramirez MD [address] [place] [address] [phone] Assigned Surgical Provider 12/04/[address] MD [address] [place], [place] [phone] Assigned Rheumatology Provider 02/25/22 Nini Patten MD [address] [place] [address] [phone] Endocrinology, Diabetes, and Metabolism 08/29/22 Nini Patten MD [address] [place] [address] Assigned Endocrinology Provider 01/20/23 Margaret Reyes [facility] Pharmacist 08/10/23 documented as of this encounter
--- OUTSIDE RECORDS SUMMARY | 2023-09-25 19:48 | XMS_ITS | Encounter Summary ---
Author Name Unknown Organization [place] Address [address] [place] [address] Care Team Providers Care Autocad Detailer Name Role Phone ZuleymaBola [facility], [facility] Unavailable [phone] Shaan Ramirez MD Unavailable [phone] Luis Ambriz MD Primary Care Provider [phone] MD Unavailable [phone] Nini Patten MD Unavailable [phone] Nini Patten MD Unavailable [phone] Encounter Details Date Type Department Care Team (Latest Contact Info) Description 06/07/2023 Travel Social History Tobacco Use Types Packs/Day [...] CDT Virtual Visit [facility] [address] [phone] Adria Cisneros MD [address] [place] [address] [phone] Margaret Reyes, [facility] 11/09/2023 9:00 AM CDT Virtual Visit [facility] [place] [phone] [place] [phone] Adria Cisneros MD [address] [facility] [address] [place], [place] 507245 01/14/2024 10:00 AM CDT Office Visit [facility] Eye Clinic [facility] [address] [facility] 9[address] Clin [address] [place] [phone] Shaan Ramirez MD [address] [place] [address] [phone] documented as of this encounter Visit Diagnoses Not on filedocumented in this encounter Additional Health Concerns Assessment Noted Time PHQ-9 Depression Total Score: 4 12/25/19 23 2:25 PM CDT documented as of this encounter Care Teams Autocad Detailer Relationship Specialty Start Date End Date Luis Ambriz MD [address] [place] [address] [phone] PCP - General Family Medicine 02/16/22 Bola Amor, ROVER TENDER, [facility] [address] [facility] [address] [place], [place] [phone] Assigned Behavioral Health Provider 12/04/21 Shaan Ramirez MD [address] [place] [address] [phone] Assigned Surgical Provider 12/04/[address] MD [address] [place], [place] 146575 Assigned Rheumatology Provider 02/25/22 Nini Patten MD [address] [place] [address] Endocrinology, Diabetes, and Metabolism 08/29/22 Nini Patten MD [address] [place] [address] Assigned Endocrinology Provider 01/20/23 documented as of this encounter
--- OUTSIDE RECORDS SUMMARY | 2023-09-25 19:48 | XMS_ITS | Encounter Summary ---
Author Name Unknown Organization [place] Address [address] [place] [address] Care Team Providers Care Line Maintainer Name Role Phone ZuleymaBola [facility], [facility] Unavailable [phone] Shaan Ramirez MD Unavailable [phone] Luis Ambriz MD Primary Care Provider [phone] MD Unavailable [phone] Nini Patten MD Unavailable [phone] Nini Patten MD Unavailable [phone] Reason for Visit * Reason Comments Uveitis Follow-Up 5 month follow up Encounter Details Date Type Department Care Team (Late st Contact Info) Description 06/08/2023 1:30 PM CDT Office Visit [facility] Eye [address] 9[facility] [address] [place] [address] Shaan Ramirez MD [address] [place] [address] Intermediate uveitis of both eyes (Primary Dx); Recurrent iritis, bilateral; Cystoid macular edema of both eyes; High [...] * Patient Instructions* Shaan Ramirez MD - 06/08/2023 1:30 PM CDT Continue methotrexate 12.5 mg (5 tabs weekly) and folic acid daily. No specific need to increase the dose of methotrexate. We support the addition of FUNMILAYO inhibitor which may also help eye inflammation. There does not seem to be a need for a biologic such as Humira at this time No need for steroid drops or oral steroid at this time. documented in this encounter Progress Notes * Shaan Ramirez MD - 06/08/2023 1:30 PM CDT Chief Complaint/Presenting Concern: Uveitis follow up Interval History of Present Ocular Illness: Amelia Sr is a 47 year old patient who returns for follow up of her intermediate uveitis. Last visit we discussed steroid drops while waiting other options. Amelia started methotrexate a few weeks ago and this has been going okay. Not doing steroid drops regularly. She is having flashing in the left eye but no change in floaters. Interval Updates to Medical/Family/Social History: Saw Dr. Lane and elected to start methotrexate and are considering a FUNMILAYO inhibitor such as Xeljanz or Rinvoq Relevant Review of Systems Updates: No hidradenitis issues. Lost 35 pounds and tolerating Ozempic well without bad side effects. Intermittent psoriasis spots behind ears Labs: None recently Current eye related medications: Oral methotrexate 12.5 mg (5 pills) weekly for the last 3 weeks, Folic acid 1 mg daily, no drops in 3 weeks Retina/Uveitis Imaging: OCT Spectralis Macula June 08, 2023 right eye: Normal foveal contour, no fluid. NO NFL thickening, no PP fluid left eye: Normal foveal contour, no fluid.Minimal NFL thickening, no PP fluid Assessment: 1. Intermediate uveitis of both eyes No active haze in either eye 2. Recurrent iritis, bilateral Active but improving 3. Cystoid macular edema of both eyes None in either eye by OCT 4. High risk medication use Back on methotrexate now 12.5 mg weekly for the last 3 weeks Plan/Recommendations: Discussed findings with patient. The eyes are doing well with improved inflammation even without steroid drops. There is no macular edema. Most importantly, Amelia is tolerating the methotrexate well without infection issues as was the case previously We recommend continuing the current course and an ticipate flashing in the left eye will improve with more time on methotrexate as inflammation improves even further Eye pressure is normal in each eye Recommend additional testing when scheduled with Dr. Lane Continue methotrexate 12.5 mg (5 tabs weekly) and folic acid daily. No specific need to increase the dose of methotrexate. We support the addition of FUNMILAYO inhibitor which may also help eye inflammation. There does not seem to be a need for a biologic such as Humira at this time No need for steroid drops or oral steroid at this time. RTC Mid September tonopen, AC Check, then dilate with OCT and FA Transit left eye (all ordered) Physician Attestation Attending Physician Attestation: Complete documentation [...] Ramirez M.D., Uveitis and Medical Retina, June 08, 2023 documented in this encounter Nursing Notes * Julee Scherer - 06/08/2023 1:30 PM CDT Chief Complaints and History of Present Illnesses Patient presents with Uveitis Follow-Up 5 month follow up Chief Complaint(s) and History of Present Illness(es) Uveitis Follow-Up Associated symptoms: flashes Comments: 5 month follow up Comments Pt states she has been having a lot of white flashes in LE, some in RE, pt states this has been going on for 3-4 months. Pt states no pain, new floaters, or vision changes. Pt on methotrexate, stopped Humira. Pt states she hasn't been using drops. Julee Scherer OA 1:32 PM June 08, 2023 documented in this encounter Plan of Treatment Upcoming Encounters Date Type Department Care Team (Late st Contact Info) Description 10/16/2023 10:00 AM CDT Virtual Visit [facility] Rheumatology Clinic [address] [phone] Adria Cisneros MD [address] [place] [address] [id number] Margaret Reyes, [facility] 11/09/2023 9:00 AM CDT Virtual Visit [facility] Rheumatology Clinic [address] [phone] Adria Cisneros MD [address] [place] [address] 035685 01/14/2024 10:00 AM CDT Office Visit [facility] Eye Clinic - [address] [facility] [address] [place] [address] Shaan Ramirez MD [address] [place] [address] documented as of this encounter Procedures Procedure Name Priority Date/Time Associated Diagnosis Comments OCT RETINA SPECTRALIS OU (BOTH EYE) Routine 06/08/2023 3:08 PM CDT Intermediate uveitis of both eyes documented in this encounter Results * Fluorescein Angiography OU (both eyes) (09/24/2023 12:23 PM SOIL SAMPLER) Narrative Shaan Ramirez MD - 09/24/2023 12:23 PM SOIL SAMPLER Performed by: EG . Patient cooperation: Reliable [...] Spectralis OU (both eyes) (09/24/2023 12:23 PM SOIL SAMPLER) Shaan Rocha MD - 09/24/2023 12:23 PM SOIL SAMPLER Performed by: EG . Patient cooperation: Reliable [...] fluid stable. Shaan Ramirez MD OPHTHALMOLOGY * OCT Retina Spectralis OU (both eyes) (06/08/2023 3:08 PM CDT) Shaan Rocha MD - 06/08/2023 3:08 PM CDT Performed by: TLT . Patient cooperation: Reliable . Right Eye Reliability of the test: Good . Findings normal/abnormal: Abnormal OCT . Interpretation: Retinal disease . Plan: Monitor . Interval: Same . Left Eye Reliability of the test: Good . Findings normal/abnormal: Abnormal OCT . Interpretation: Retinal disease . Plan: Monitor . Interval: Same . Notes OCT Spectralis Macula June 08, 2023 right eye: Normal foveal contour, no fluid. 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 [address] [place] [address] 544105 Assigned Behavioral Health Provider 12/04/21 Shaan Ramirez MD [address] [place] [address] 954365 Assigned Surgical Provider 12/04/[address] MD [address] [place], [place] 381755 Assigned Rheumatology Provider 02/25/22 Nini Patten MD [address] [place] [address] [phone] Endocrinology, Diabetes, and Metabolism 08/29/22 Nini Patten MD [address] [place] [address] 097145 Assigned Endocrinology Provider 01/20/23 documented as of this encounter
--- OUTSIDE RECORDS SUMMARY | 2023-09-25 19:48 | XMS_ITS | Encounter Summary ---
Author Name Unknown Organization [place] Address [address] [place] [address] Care Team Providers Care User Experience Manager Name Role Phone ZuleymaBola [facility], [facility] Unavailable [phone] Shaan Ramirez MD Unavailable [phone] Luis Ambriz MD Primary Care Provider [phone] MD Unavailable [phone] Nini Patten MD Unavailable [phone] Nini Patten MD Unavailable [phone] [facility] Unavailable Unavailable Reason for Visit * Reason Comments Refill Request methotrexate 2.5 MG tablet 60 tablet 0 05/17/2023 Encounter Details Date Type Department Care Team (Late st Contact Info) Description 08/15/2023 Refill [facility] Rheumatology Clinic [address] [phone] MD [address] [place] [address] Refill Request (methotrexate 2.5 MG tablet 60 tablet 0 05/17/2023) Social History Tobacco Use Types Packs/Day Years [...] Telephone Encounter - Tracey Lang RN - 08/19/2023 7:31 PM CST methotrexate 2.5 MG tablet 60 tablet 0 05/17/2023 Last Office Visit: 08/07/23 Future Office visit: 11/09/23 CBC RESULTS: Recent Labs Lab Test 02/02/23 1145 WBC 7.8 RBC 4.48 HGB 14.1 HCT 40.4 MCV 90 MCH 31.5 MCHC 34.9 RDW 11.7 PLT 302 Creatinine Date Value Ref Range Status 02/02/2023 0.92 0.51 - 0.95 mg/dL Final Liver Function Studies - Recent Labs Lab Test 02/02/23 1145 PROTTOTAL 7.4 ALBUMIN 4.5 BILITOTAL 0.8 ALKPHOS 90 AST 34 ALT 49 Routing refill request to provider for review/approval because: PROVIDER MUST AUTHORIZE Tracey Lang RN UMP Red Flag Triage/MRT WORKER documented in this encounter Plan of Treatment Upcoming Encounters Date Type Department Care Team (Late st Contact Info) Description 10/16/2023 10:00 AM CDT Virtual Visit [facility] Rheumatology Clinic [address] [phone] Adria Cisneros MD [address] [place] [address] 125885 [facility] 11/09/2023 9:00 AM CDT Virtual Visit [facility] Rhe[facility]ology Clinic [address] [phone] Adria Cisneros MD [address] [place] [address] [phone] 01/14/2024 10:00 AM CDT Office Visit [facility] Eye Clinic [facility] [address] [facility] 9th Fl Clin [address] [place] [address] Shaan Ramirez MD [address] [place] [address] documented as of this encounter Visit Diagnoses Diagnosis Psoriasis Other psoriasis Intermediate uveitis of both eyes Hidradenitis suppurativa Hidradenitis documented in this encounter Additional Health Concerns Assessment Noted Time PHQ-9 Depression Total Score: 4 12/25/19 23 2:25 PM CDT documented as of this encounter Care Teams User Experience Manager Relationship Specialty Start Date End Date Luis Ambriz MD [address] [place] [address]83 PCP - General Family Medicine 02/16/22 Bola Amor, [facility], [facility] [address] [place] [address] 26734 Assigned Behavioral Health Provider 12/04/21 Shaan Ramirez MD [address] [place] [address] [phone] Assigned Surgical Provider 12/04/[address] MD [address] [place] [address] 294165 Assigned Rheumatology Provider 02/25/22 Nini Patten MD [address] [place] [address] 482245 Endocrinology, Diabetes, and Metabolism 08/29/22 Nini Patten MD [address] [place] [address] 246145 Assigned Endocrinology Provider 01/20/23 [facility] Pharmacist 08/10/23 documented as of this encounter
--- OUTSIDE RECORDS SUMMARY | 2023-09-25 19:48 | XMS_ITS | Encounter Summary ---
Author Name Unknown Organization [place] Address [address] [place] [address] Care Team Providers Care Pack Out Operator Name Role Phone ZuleymaBola [facility] Unavailable [phone] Shaan Ramirez MD Unavailable [phone] Luis Ambriz MD Primary Care Provider [phone] MD Unavailable [phone] Nini Patten MD Unavailable [phone] Nini Patten MD Unavailable [phone] Encounter Details Date Type Department Care Team (Latest Contact Info) Description 05/17/2023 Travel Social History Tobacco Use Types Packs/Day [...] Description 10/16/2023 10:00 AM CDT Virtual Visit [facility] Rheumatology Clinic [address] [phone] Adria Cisneros MD [address] [place] [address] [phone] Margaret Reyes, [facility] 11/09/2023 9:00 AM CDT Virtual Visit [facility] Rheumatology Clinic [place] [phone] [place] [phone] Adria Cisneros MD 515 [facility] 88 [place], [place] 024915 01/14/2024 10:00 AM CDT Office Visit [facility] Eye Clinic [facility] Emergency Department [address] [facility] 9th Fl Clin 9[address] [place] [phone] Shaan Ramirez MD [address] [place] [address] [phone] documented as of this encounter Visit Diagnoses Not on filedocumented in this encounter Additional Health Concerns Assessment Noted Time PHQ-9 Depression Total Score: 4 12/25/19 23 2:25 PM CDT documented as of this encounter Care Teams Pack Out Operator Relationship Specialty Start Date End Date Luis Ambriz MD [address] [place] [address] [phone] PCP - General Family Medicine 02/16/22 Bola Amor, ETL DATABASE DEVELOPER, [facility] [address] [facility] [address] [place], [place] 511645 Assigned Behavioral Health Provider 12/04/21 Shaan Ramirez MD [address] [place] [address] 465225 Assigned Surgical Provider 12/04/[address] MD 420 [place], [place] 653565 Assigned Rheumatology Provider 02/25/22 Nini Patten MD [address] [place] [address] Endocrinology, Diabetes, and Metabolism 08/29/22 Nini Patten MD [address] [place] [address] Assigned Endocrinology Provider 01/20/23 documented as of this encounter
--- OUTSIDE RECORDS SUMMARY | 2023-09-25 19:48 | XMS_ITS | Encounter Summary ---
Author Name Unknown Organization [place] Address [address] [place] [address] Care Team Providers Care Stablehand Name Role Phone ZuleymaBola [facility], [facility] Unavailable [phone] Shaan Ramirez MD Unavailable [phone] Luis Ambriz MD Primary Care Provider [phone] MD Unavailable [phone] Nini Patten MD Unavailable [phone] Nini Patten MD Unavailable [phone] Margaret Reyes [facility] Unavailable Unavailable Encounter Details Date Type Department Care Team (Late st Contact Info) Description 05/14/2023 MyC Medical Advice [facility] [address] 9[facility] [address] [place] [address] [facility] Social History Tobacco Use Types Packs/Day Years [...] Encounters Date Type Department Care Team (Late Contact Info) Description 10/16/2023 10:00 AM CDT Virtual Visit [facility] Rheumatology Clinic [address] [phone] Adria Cisneros MD [address] [place] [address] 336195 Margaret Reyes, [facility] 11/09/2023 9:00 AM CDT Virtual Visit [facility] Rheumatology [address] [phone] Adria Cisneros MD [address] [place] [address] [phone] 01/14/2024 10:00 AM CDT Office Visit [facility] Eye [address] [facility] [address] [place] [phone] Shaan Ramirez MD [address] [place] [address] [phone] documented as of this encounter Visit Diagnoses Not on filedocumented in this encounter Additional Health Concerns Assessment Noted Time PHQ-9 Depression Total Score: 4 12/25/19 23 2:25 PM CDT documented as of this encounter Care Teams Stablehand Relationship Specialty Start Date End Date Luis Ambriz MD [address] [place] [address]390 PCP - General Family Medicine 02/16/22 Bola Amor, BIOLOGICAL TECHNICAL OFFICER, [facility] [address] [facility] 180 [place] [address] Assigned Behavioral Health Provider 12/04/21 Shaan Ramirez MD [address] [place] [address] 16819 Assigned Surgical Provider 12/04/[address] MD 420 [place] [address] Assigned Rheumatology Provider 02/25/22 Nini Patten MD [address] [place] [address] Endocrinology, Diabetes, and Metabolism 08/29/22 Nini Patten MD [address] [place] [address] Assigned Endocrinology Provider 01/20/23 Margaret Reyes [facility] Pharmacist 08/10/23 documented as of this encounter
--- OUTSIDE RECORDS SUMMARY | 2023-09-25 19:48 | XMS_ITS | Encounter Summary ---
Author Name Unknown Organization [place] Address [address] [place] [address] Care Team Providers Care Quarter Trimmer Name Role Phone ZuleymaBola [facility], [facility] Unavailable [phone] Shaan Ramirez MD Unavailable [phone] Luis Ambriz MD Primary Care Provider [phone] MD Unavailable [phone] Nini Patten MD Unavailable [phone] Nini Patten MD Unavailable [phone] Encounter Details Date Type Department Care Team (Latest Contact Info) Description 05/16/2023 Travel Social History Tobacco Use Types Packs/Day [...] Description 10/16/2023 10:00 AM CDT Virtual Visit [facility] Rheumatology Clinic [address] [phone] Adria Cisneros MD [address] [place] [address] 394275 Margaret Reyes, [facility] 11/09/2023 9:00 AM CDT Virtual Visit [facility] Rheumatology Clinic [place] [address] [place] [phone] Adria Cisneros MD 515 [facility] 88 [place], [place] 507195 01/14/2024 10:00 AM CDT Office Visit [facility] Eye Clinic [facility] [address] [facility] 9th Fl Clin 9[address] [place] [phone] Shaan Ramirez MD [address] [place] [address] 384165 documented as of this encounter Visit Diagnoses Not on filedocumented in this encounter Additional Health Concerns Assessment Noted Time PHQ-9 Depression Total Score: 4 12/25/19 23 2:25 PM CDT documented as of this encounter Care Teams Quarter Trimmer Relationship Specialty Start Date End Date Luis Ambriz MD [address] [place] [address] 201765 PCP - General Family Medicine 02/16/22 Bola Amor, FIELD APPLICATION ENGINEER, [facility] [address] [facility] 180 [place], [place] 454585 Assigned Behavioral Health Provider 12/04/21 Shaan Ramirez MD [address] [place] [address] [phone] Assigned Surgical Provider 12/04/[address] MD 420 [place], [place] 601675 Assigned Rheumatology Provider 02/25/22 Nini Patten MD [address] [place] [address] Endocrinology, Diabetes, and Metabolism 08/29/22 Nini Patten MD [address] [place] [address] Assigned Endocrinology Provider 01/20/23 documented as of this encounter
--- OUTSIDE RECORDS SUMMARY | 2023-09-25 19:48 | XMS_ITS | Encounter Summary ---
Author Name Unknown Organization [facility] Address [address] [place] [id number] Care Team Providers Care Boatswains Mate Name Role Phone Zuleyma[facility]ola [facility], [facility] Unavailable [phone] Shaan Ramirez MD Unavailable [phone] Luis Ambriz MD Primary Care Provider [phone] MD Unavailable [phone] Nini Patten MD Unavailable [phone] Nini Patten MD Unavailable [phone] Margaret Yost [facility] Unavailable Unavailable Reason for Visit * Reason Comments Medication Therapy Management * Med Therapy Management (Routine: Next available opening) - Pending Review Specialty Diagnoses / Procedures Referred By Contmandi t Referred To Contact Pharmacist Diagnoses Intermediate uveitis of both eyes Adria Cisneros MD [address] [place] [id number] Referral ID Status Reason Start Date Expiration Date V isits Requested Visits Authorized [id number] Pending Review 08/07/2023 08/06/2024 1 1 Encounter Details Date Type Department Care Team (Late st Contact Info) Description 08/10/2023 11:30 AM MANAGER SECONDARY Virtual Visit [facility] [address] [phone] Adria Cisneros MD [address] [place] [id number] Margaret Yost RPH Psoriasis (Primary Dx); Hidradenitis suppurativa; Intermediate uveitis of both eyes; Vaccine counseling; Depression; ADHD; Hyperlipidemia; Hypertension; Diabetes mellitus (H) Social History Tobacco Use Types Packs/Day Years [...] this encounter Patient Instructions * Patient Instructions* Margaret Yost RPH - 08/10/2023 11:30 AM MANAGER SECONDARY Recommendations from today's MTM visit: Once approved, start Xeljanz 5 mg by mouth twice daily. Medication education provided today including administration, common and serious adverse effects (including clotting and infection risk), lab monitoring, and time to effectiveness. Continue methotrexate 12.5 mg every 7 days. Note interaction with Opzelura cream and Xeljanz. Patient not taking the Opzelura at this time and should not use them together. Follow-up: 3 months for Xeljanz effectiveness, tolerability, and lab update. It was great speaking with you today. I value your experience and would be very thankful for your time in providing feedback in our clinic survey. In the next few days, you may receive an email or text message from [employer] with a link to a survey related to your ???clinical pharmacist. To schedule another MTM appointment, please call the clinic directly or you may call the MTM scheduling line at [phone] or toll-free at . My Clinical Pharmacist's contact information: Please feel free to contact me with any questions or concerns you have. Margaret Yost, PharmD Medication Therapy Management Pharmacist [facility] GER SECONDARY documented in this encounter Progress Notes * Margaret Yost RPH - 08/10/2023 11:30 AM CST Images from the original note were not included. Medication Therapy Management (MTM) Encounter ASSESSMENT: Medication Adherence/Access: No issues reported. Hidradenitis suppurativa/psoriasis/uveitis: Hidradenitis suppurativa symptoms are stable on methotrexate monotherapy, but psoriasis on ears and ocular symptoms due to uveitis persist. Patient would benefit from additional therapy with Xeljanz as directed. Note Opzelura was previously prescribed forpsoriasis, it is not recommended to take Opzelura and Xeljanz together due to potential of additiveimmunosuppression despite Opzelura being a topical. Discussed this interaction with patient who is not using Opzelura at this time. Vaccine counseling: Patient is indicated for COVID, PCV20, and Shingrix per ACIP recommendations. Last Tdap 12/2013, will be due for a booster 12/2023. Depression: Current regimen is beneficial although she does feel there is room for improvement, encouraged discussion with primary care as they manage these meds. ADHD: Well controlled on current regimen, no changes needed at this time. Hyperlipidemia: Last LDL 126, does not have ASCVD. Note Xeljanz can elevate lipids, monitor closelyonce initiated and may need to consider increasing rosuvastatin dose. Hypertension: Blood pressure is at goal of < 140/90 mmHg on current regimen, no changes needed. Type II diabetes: A1C is at goal of < 6.5% on current regimen, no changes needed. PLAN: Once approved, start Xeljanz 5 mg by mouth twice daily. Medication education provided today including administration, common and serious adverse effects (including clotting and infection risk), lab monitoring, and time to effectiveness. Continue methotrexate 12.5 mg every 7 days. Note interaction with Opzelura cream and Xeljanz. Patient not taking the Opzelura at this time and should not use them together. Follow-up: 3 months for effectiveness, tolerability, and updated labs. Call any day between 9:30 amand 1:30 pm. SUBJECTIVE/OBJECTIVE: Amelia Sr is a 48 year old female called for an initial visit. She was referred to me from Adria Cisneros MD. Reason for visit: New Xeljanz start. Allergies/ADRs: Reviewed in chart Past Medical History: Reviewed in chart Tobacco: She reports that she has never smoked. She has never used smokeless tobacco. Alcohol: not assessed today Medication Adherence/Access: No issues reported. Hidradenitis suppurativa/psoriasis/uveitis: Methotrexate 12.5 mg by mouth once weekly Folic acid 1 mg daily Spironolactone 50 mg twice daily Per OV note, patient with incompletely controlled uveitis and psoriasis symptoms (flashing white lights in vision, psoriasis flaring on both ears). Hidradenitis suppurativa is stable. Previously failed Humira due to new eye inflammation even at every 7 days dosing. Has required numerous prednisone bursts. Does have a history of recurrent infections on Humira + methotrexate, mainly cellulitis related to cat scratches. Patient says she is not using Opzelura cream or any other topicals at this time. Reviewed baseline pre-biologic screening. Hep C antibody non-reactive Hep B surface antigen non-reactive Hep B core antibody non-reactive Quantiferon TB Negative HIV antigen non-reactive CBC RESULTS: Recent Labs Lab Test 02/02/23 1145 WBC 7.8 RBC 4.48 HGB 14.1 HCT 40.4 MCV 90 MCH 31.5 MCHC 34.9 RDW 11.7 PLT 302 Component Latest Ref Rng 08/05/2023 2:44 PM Sodium (External) 135 - 149 mmol/L 139 (E) Potassium (External) 3.6 - 5.1 mmol/L 4.0 (E) Chloride (External) 96 - 114 mmol/L 105 (E) CO2 (External) 20 - 32 mmol/L 24 (E) Anion Gap (External) 7 - 15 mEq/L 10 (E) Urea Nitrogen (External) 5 - 24 mg/dL 15 (E) Creatinine (External) 0.5 - 1.5 mg/dL 0.9 (E) GFR Estimated (External) ml/min 80 (E) Calcium (External) 8.4 - 10.6 mg/dL 9.6 (E) Glucose (External) 60 - 115 mg/dL 95 (E) Protein Total (External) 6.0 - 8.3 g/dL 7.7 (E) Albumin (External) 3.3 - 5.0 g/dL 4.6 (E) Bilirubin Total (External) 0.1 - 1.5 mg/dL 1.1 (E) AST (External) 12 - 35 U/L 37 (H) (E) ALT (External) 4 - 35 U/L 47 (H) (E) Alk Phosphatase (External) 40 - 150 U/L 80 (E) Vaccine counseling: COVID, PCV20, Shingrix, last Tdap 12/2013. Immunization History Administered Date(s) Administered COVID-19 Bivalent 18+ (Moderna) 10/19/2022 COVID-19 Monovalent 18+ (Moderna) 09/15/2020, 10/13/2020 Depression: Abilify 5 mg daily Bupropion 300 mg daily Venlafaxine 225 mg daily (takes three 75 mg tabs) She is unsure how beneficial these are but doesn't seem to hurt and does feel mood is stable. Prescribed by primary care. ADHD: Methylphenidate CR 54 mg daily Methylphenidate IR 10 mg daily in afternoon Working well for her, extra dose of IR methylphenidate in the afternoon is helpful while at work. Hyperlipidemia: Rosuvastatin 10 mg daily Denies muscle pain. Hypertension: Losartan 25 mg once daily Metoprolol 50 mg daily Patient does not monitor blood pressure at home. BP Readings from Last 3 Encounters: 05/17/23 116/80 Type II diabetes: Metformin 1000 mg daily Ozempic 1 mg every 7 days Does not monitor blood glucose at home as A1C has been consistently in goal. Today's Vitals: There were no vitals taken for this visit. I spent 45 minutes with this patient today. All changes were made via collaborative practice agreement with Adria Cisneros. A copy of the visit note was provided to the patient's provider(s). A summary of these recommendations was sent via [employer]. Margaret Yost, PharmD Medication Therapy Management Pharmacist [facility] Telemedicine Visit Details Type of service: Telephone visit Start Time: 1130 End Time: 1215 Medication Therapy Recommendations Psoriasis Current Medication: Ruxolitinib Phosphate (OPZELURA EX) (Discontinued) Rationale: Medication interaction Recommendation: Ruxolitinib Phosphate 1.5 % Crea - Do not use Opzelura cream while taking Xeljanz. Patient notes she is not taking Opzelura at this time, discontinued from med list Status: Patient Agreed - Adherence/Education GER SECONDARY documented in this encounter Miscellaneous Notes * Addendum Note - Margaret Yost [facility] - 08/10/2023 11:30 AM CSTAddended by: MARGARET YOST on: 08/16/2023 10:57 AM Modules accepted: Orders GER SECONDARY documented in this encounter Plan of Treatment Upcoming Encounters Date Type Department Care Team (Late st Contact Info) Description 10/16/2023 10:00 AM CDT Virtual Visit [facility] [address] [phone] Adria Cisneros MD [address] [place] [phone] Margaret Yost [facility] 11/09/2023 9:00 AM CDT Virtual Visit [facility] [address] [phone] Adria Cisneros MD [address] [place] [phone] 01/14/2024 10:00 AM CDT Office Visit [facility] - [address] [place] [address] Shaan Ramirez MD [address] [place] [phone] documented as of this encounter Visit Diagnoses Diagnosis Psoriasis- Primary Other psoriasis Hidradenitis suppurativa Hidradenitis Intermediate uveitis of both eyes Vaccine counseling Depression Depressive disorder, not elsewhere classified ADHD Hyperlipidemia Other and unspecified hyperlipidemia Hypertension Unspecified essential hypertension Diabetes mellitus (H) Type II or unspecified type diabetes mellitus without mention of complication, not stated as uncontrolled documented in this encounter Additional Health Concerns Assessment Noted Time PHQ-9 Depression Total Score: 4 12/25/19 23 2:25 PM CDT documented as of this encounter Care Teams Boatswains Mate Relationship Specialty Start Date End Date Luis Ambriz MD [address] [place] [id number] PCP - General Family Medicine 02/16/22 Bola Amor, INFORMATICS NURSE SPECIALIST, [facility] [address] [place] [address] [address] Assigned Behavioral Health Provider 12/04/21 Shaan Ramirez MD [address] [place] [address] [phone] Assigned Surgical Provider 12/04/[address] MD [address] [place] [phone] Assigned Rheumatology Provider 02/25/22 Nini Patten MD [address] [place] [address] [phone] Endocrinology, Diabetes, and Metabolism 08/29/22 Nini Patten MD [address] [place] [address] [phone] Assigned Endocrinology Provider 01/20/23 Margaret Yost [facility] Pharmacist 08/10/23 documented as of this encounter
--- OUTSIDE RECORDS SUMMARY | 2023-09-25 19:48 | XMS_ITS | Encounter Summary ---
Author Name Unknown Organization [place] Address [facility] [place] [address] Care Team Providers Care Pcmh Specialist Name Role Phone Bola Amor [facility], [facility] Unavailable [phone] Shaan Ramirez MD Unavailable [phone] Luis Ambriz MD Primary Care Provider Richmond Lane MD Unavailable [phone] Nini Patten MD Unavailable [phone] Nini Patten MD Unavailable [phone] Reason for Referral * Med Therapy Management (Routine: Next available opening) - Pending Review Specialty Diagnoses / Procedures Referred By Nicol bey Referred To Contact Pharmacist Diagnoses Intermediate uveitis of both eyes Adria Cisneros MD [address] [place] [address] Referral ID Status Reason Start Date Expiration Date V isits Requested Visits Authorized [id number] Pending Review 08/07/2023 08/06/2024 1 1 Question Answer Type of MTM: Specialty Specialty: Rheumatology Course of Action: Other Reason for Referral: uveitis, psoriasis starting xeljanz Comments [facility] Medication Therapy Management department will contact you to schedule an appointment. You may also schedule the appointment by calling or toll-free at . This service is designed to help you get the most from your medications. A specially trained Pharmacist will work closely with you and your providers to solve any questions, concerns, issues or problems related to your medications. Please bring all of your prescription and non-prescription medications (such as vitamins, [id number] medications, and herbals) or a detailed medication list to your appointment. If you have a glucose meter or other home monitoring information, please also bring this to your appointment (i.e. blood glucose log, blood pressure log, pain log, etc.). MILL OPERATOR Reason for Visit * Reason Comments RECHECK Encounter Details Date Type Department Care Team ([facility] st Contact Info) Description 08/07/2023 10:30 AM ROLL MILL OPERATOR Virtual Visit [address] [address] Adria Cisneros MD [address] [place] [address] Intermediate uveitis of both eyes (Primary Dx); High risk medication use Social History Tobacco [...] this encounter Patient Instructions * Patient Instructions* Adria Cisneros MD - 08/07/2023 10:30 AM ROLL MILL OPERATOR Diagnosis: 1. Psoriasis, ears, active 2. Intermediate uveitis, cystoid macular edema: Improved, but incompletely controlled on methotrexate alone with topical therapy. Plan: 1. Start tofacitinib 5 mg 1 tablet twice daily. Check hepatitis B and C and TB prior to starting medication. 2. Continue methotrexate 5 tablets (12.5 mg) once weekly. While on methotrexate and tofacitinib: While on methotrexate: -- Check blood tests every 3 months (AST/ALT, Albumin, CBC with platelets) -- Limit alcohol intake to 2 drinks weekly; use folate 1 mg daily. --Tylenol 500-1000 mg can be used as needed up to three times daily for nausea/headache associated with dosing. --fasting lipidpanel every 6 months 3. Clinic staff to assist with achieving transfer of recent laboratory data, including mildly increased AST and ALT, to [facility]. MILL OPERATOR documented in this encounter Progress Notes * Adria Cisneros MD - 08/07/2023 10:30 AM CST Amelia is a 48 year old who is being evaluated via a billable video visit. How would you like to obtain your AVS? MyChart If the video visit is dropped, the invitation should be resent by: Text to cell phone: [phone] Will anyone else be joining your video visit? No Video-Visit Details Type of service: Video Visit Originating Location (pt. Location): Home Distant Location (provider location): On-site Platform used for Video Visit: A Curated World Start 1050 End 1115 Rheumatology Clinic Visit Adria Cisneros M.D. Amelia Sr Date of : 1975 Age: [age] year old Date of Visit: 08/06/2023 Primary care provider: Luis Ambriz Reason for follow-up: High risk medication management/ recurrent inflammatory eye disease/ psoriasis Requesting physician: Shaan Ramirez MD Assessment & Plan: # Persistent/recurrent uveitis/iritis/cystoid macular edema # psoriasis, external ears # Hidradenitis suppurativa Patient relates stability of hidradenitis symptoms, but has persistent psoriasis on the external auricles both ears. Flashing white light symptoms have not improved on methotrexate alone. Video exam today shows erythema with fine silvery scale over superior external auricles both sides. Data: lab work in January 2023 showed comprehensive metabolic panel, CBC, and sedimentation rate all normal or negative. Discussion: Ocular symptoms as well as psoriasis are incompletely controlled on methotrexate monotherapy. I agree with Dr. Lane and with Dr. Ramirez that augmented immunomodulatory therapy is warranted. We discussed my recommendation that addition of a Hammad inhibitor may be beneficial for multiple inflammatory/autoimmune conditions. I recommend trial of tofacitinib, and expect benefit with respect to psoriasis and eye inflammation within 4 to 6 weeks. #high risk medication use: --Risks and benefits of methotrexate and xeljanz discussed today to include infection, BM suppression, GI/hepatoxicity, malignancy among others. Patient knows not to consume ETOH. Patient knows drugsare not compatible with conception/. Patient is agreeable. Plan: 1. Start tofacitinib 5 mg 1 tablet twice daily. Check hepatitis B and C and TB prior to starting medication. 2. Continue methotrexate 5 tablets (12.5 mg) once weekly. While on methotrexate and tofacitinib: While on methotrexate: -- Check blood tests every 3 months (AST/ALT, Albumin, CBC with platelets) -- Limit alcohol intake to 2 drinks weekly; use folate 1 mg daily. --Tylenol 500-1000 mg can be used as needed up to three times daily for nausea/headache associated with dosing. --fasting lipidpanel every 6 months 3. Clinic staff to assist with achieving transfer of recent laboratory data, including mildly increased AST and ALT, to [place]. 4. Follow-up with Dr. Ramirez as scheduled in September 2023. RTC 4 mos Adria Cisneros MD Staff Ice Cream Vendor, [facility] On the day of the encounter, a total of 47 minutes was spent in chart review, and in counseling andcoordination of care, regarding the patient's complex medical problem of psoriasis, hidradenitis suppurativa, and uveitis/cystoid macular edema. Subjective: Patient presents for transfer of care from Dr. Lane. Was last seen in rheumatology in February 2023 for persistent iritis and cystoid macular edema and psoriasis. Dr. Lane recommended restartof methotrexate with consideration of adding or substituting a Hammad inhibitor Rinvoq versus Xeljanz for resistant disease. Bckgd: hx of recurrent/persistent iritis/intermediate uveitis, and cystoid macular edema who follows closely with Dr Ramirez of ophthalmology. She was referred to rheumatology and evaluated on 02/03/22 for an active systemic autoimmune disease as the stock driver of her inflammatory eye disease given its p ersistence/recurrence despite humira 40mg q7 days, oral prednisone, [...] SI joints obtained and did not show anyerosions or ankylosis, it did show mild sclerosis of bilateral SI joints on the iliac aspect caudally. Interval history August 07, [address] Ramirez in ophthalmology on June 08, 2023. Impression was of #1 intermediate uveitis of both eyes without activity: #2 recurrent iritis bilateral, improving 3 cystoid macular edema both eyes not visible by OCT. Recommendation was to continue methotrexate and to consider additionof Hammad inhibitor; no need to add biologic such as Humira. No need for topical therapy. Today, she reports that she started methotrexate again since the last visit. She is still having white flashes despite the methotrexate. No issues with tolerating methotrexate. She also notes ongoig psoriasis in the ears, very itchy, although better since restarting methotrexate. She uses opsulura cream with modest benefit. She had used humira previously for hidradenitis, but new eye inflammation occurred on the medication,so it was stopped. -Regarding her hidradenitis suppurativa (HS), Amelia mentions that she has been managing mostly okay, with one major sore since the last visit. Otherwise it has been relatively quiet. No humira since early 2022. --she has had several episodes of cellulitis associated with catscratches. She has been taking methotrexate 5 pills weekly. Interval histor Interval History January 26, 2023 -saw Dr [...] Medications Medication ARIPiprazole (ABILIFY) 5 MG tablet buPROPion (WELLBUTRIN SR) 150 MG 12 hr tablet CONCERTA 54 MG CR tablet folic acid (FOLVITE) 1 MG tablet folic acid (FOLVITE) 1 MG tablet losartan (COZAAR) 25 MG tablet metFORMIN (GLUCOPHAGE-XR) 500 MG 24 hr tablet methotrexate 2.5 MG tablet metoprolol succinate ER (TOPROL-XL) 50 MG 24 hr tablet rosuvastatin (CRESTOR) 10 MG tablet Ruxolitinib Phosphate (OPZELURA EX) Semaglutide, 1 MG/DOSE, (OZEMPIC) 4 MG/3ML pen spironolactone (ALDACTONE) 50 MG tablet venlafaxine (EFFEXOR-XR) 150 MG 24 hr capsule No current facility-administered medications for this visit. Allergies Allergies Allergen Reactions Hydrocodone Hives and Itching Hydrocodone-Acetaminophen Hives and Itching Lavandula Latifolia Cough and Other (See Comments) Lavender Oil Cough Family History: mother with MS, dx 4 years before she . Started with optic neuritis. 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 Never drug user. Rare ETOH use. with one son. Objective: Physical exam: There were no vitals taken for this visit. Sitting up unassisted NAD Sclera are clear Has auricular psoriatic plaques bilaterally Breathing comfortably on [...] NITRITE, LEUKEST, RBCU, WBCU in the last [id number] hours. No results found for: ANAIGG, ANAP1, [...] MRI head/orbits from 12/09/21 which was normal MILL OPERATOR documented in this encounter Plan of Treatment Upcoming Encounters Date Type Department Care Team (Late st Contact Info) Description 10/16/2023 10:00 AM CDT Virtual Visit [facility] Rheumatology Clinic [address] [phone] Adria Cisneros MD [address] [place] [address] Margaret Reyes, [facility] 11/09/2023 9:00 AM CDT Virtual Visit [facility] Rheumatology Clinic [address] [phone] Adria Cisneros MD [address] [place] [address] 01/14/2024 10:00 AM CDT Office Visit [facility] Eye [facility] [address] [phone] Shaan Ramirez MD [address] [place] [address] [phone] Scheduled Orders Name Type Priority Associated Diagnoses Orde r Schedule CBC with platelets Lab Routine High risk medication use Every 3 Months for 4 Occurrences starting 08/07/2023 until 08/07/2024 AST Lab Routine High risk medication use Every 3 Months for 4 Occurrences starting 08/07/2023 until 08/07/2024 ALT Lab Routine High risk medication use Every 3 Months for 4 Occurrences starting 08/07/2023 until 08/07/2024 Albumin level Lab Routine High risk medication use Every 3 Months for 4 Occurrences starting 08/07/2023 until 08/07/2024 Creatinine Lab Routine High risk medication use Every 3 Months for 4 Occurrences starting 08/07/2023 until 08/07/2024 CRP inflammation Lab Routine High risk medication use 6 Occurrences starting 08/07/2023 until 08/07/2024 Lipid panel reflex to direct LDL Fasting Lab Routine High risk medication use Expected: 08/07/2023 (Approximate), Expires: 02/06/2024 Hepatitis B core antibody Lab Routine High risk medication use Expected: 08/07/2023 (Approximate), Expires: 08/07/2024 Hepatitis B surface antigen Lab Routine High risk medication use Expected: 08/07/2023 (Approximate), Expires: 08/07/2024 Hepatitis C antibody Lab Routine High risk medication use Expected: 08/07/2023 (Approximate), Expires: 08/07/2024 Quantiferon TB Gold Plus Lab Panel Routine High risk medication use Expected: 08/07/2023 (Approximate), Expires: 08/07/2024 Scheduled Referrals Name Type Priority Associated Diagnoses Orde r Schedule Med Therapy Management Referral Referral Routine: Next available opening Intermediate uveitis of both eyes Ordered: 08/07/2023 documented as of this encounter Visit Diagnoses Diagnosis Intermediate uveitis of both eyes- Primary High risk medication use Encounter for long-term (current) use of other medications documented in this encounter Additional Health Concerns Assessment Noted Time PHQ-9 Depression Total Score: 4 12/25/19 23 2:25 PM CDT documented as of this encounter Care Teams Pcmh Specialist Relationship Specialty Start Date End Date Luis Ambriz MD [address] [place] [address] PCP - General Family Medicine 02/16/22 Bola Amor, BEHAVIORAL PSYCHOLOGIST, [facility] [address] [place] [address] Assigned Behavioral Health Provider 12/04/21 Shaan Ramirez MD [address] [place] [address] 06651 Assigned Surgical Provider 12/04/[address] MD [address] [place] [address] 14489 Assigned Rheumatology Provider 02/25/22 Nini Patten MD [address] [place] [address] Endocrinology, Diabetes, and Metabolism 08/29/22 Nini Patten MD [address] [place] [address] Assigned Endocrinology Provider 01/20/23 documented as of this encounter
--- OUTSIDE RECORDS SUMMARY | 2023-09-25 19:48 | XMS_ITS | Encounter Summary ---
Author Name Unknown Organization [place] Address [address] [place] [address] Care Team Providers Care Paper Finisher Name Role Phone ZuleymaBola [facility], [facility] Unavailable [phone] Shaan Ramirez MD Unavailable [phone] Luis Ambriz MD Primary Care Provider [phone] MD Unavailable [phone] Nini Patten MD Unavailable [phone] Nini Patten MD Unavailable [phone] Encounter Details Date Type Department Care Team (Latest Contact Info) Description 06/08/2023 Travel Social History Tobacco Use Types Packs/Day [...] 10/16/2023 10:00 AM CDT Virtual Visit [facility] Rheumatology Clinic [address] [phone] Adria Cisneros MD [address] [place] [address] [phone] Margaret Reyes, [facility] 11/09/2023 9:00 AM CDT Virtual Visit [facility] Rheumatology Clinic [place] [phone] [place] [phone] Adria Cisneros MD [address] [facility] [address] [place], [place] [address]395 01/14/2024 10:00 AM CDT Office Visit [facility] Eye Clinic [facility] Emergency Department [address] [facility] 9th [address] Clin [address] [place] [phone] Shaan Ramirez MD [address] [place] [address] 586275 documented as of this encounter Visit Diagnoses Not on filedocumented in this encounter Additional Health Concerns Assessment Noted Time PHQ-9 Depression Total Score: 4 12/25/19 23 2:25 PM CDT documented as of this encounter Care Teams Paper Finisher Relationship Specialty Start Date End Date Luis Ambriz MD [address] [place] [address] [phone] PCP - General Family Medicine 02/16/22 Bola Amor, JAVA WEB APPLICATION DEVELOPER, [facility] [address] [facility] [address] [place], [place] 296485 Assigned Behavioral Health Provider 12/04/21 Shaan Ramirez MD [address] [place] [address] 035845 Assigned Surgical Provider 12/04/[address] MD [address] [place], [place] 070275 Assigned Rheumatology Provider 02/25/22 Nini Patten MD [address] [place] [address] Endocrinology, Diabetes, and Metabolism 08/29/22 Nini Patten MD [address] [place] [address] Assigned Endocrinology Provider 01/20/23 documented as of this encounter
--- OUTSIDE RECORDS SUMMARY | 2023-09-25 19:48 | XMS_ITS | Encounter Summary ---
Author Name Unknown Organization [facility] Address [address] [place] [address] Care Team Providers Care Real Estate Branch Manager Name Role Phone Bola Amor [facility], [facility] Unavailable [phone] Shaan Ramirez MD Unavailable [phone] Luis Ambriz MD Primary Care Provider [phone] MD Unavailable [phone] Nini Patten MD Unavailable [phone] Nini Patten MD Unavailable [phone] Reason for Visit * Reason Onset Date Comments lab results 08/07/2023 Encounter Details Date Type Department Care Team (Late st Contact Info) Description 08/07/2023 [facility] [address] [phone] Cheryl Klein RN lab results Social History Tobacco Use Types Packs/Day Years [...] encounter Miscellaneous Notes * Telephone Encounter - Cheryl Klein RN - 08/07/2023 4:05 PM CST ----- Message from Adria Brandt Cisneros, MD sent at 08/07/2023 11:21 AM RIG MECHANIC ----- Please assist patient with transfer of recent laboratory test results from outside provider to [facility]. Thank you Message left for patient that this RN is following up in recent lab test results. Need to know where and when the lab work was done. Will also send MyChart message. DALIA Godinez, RN RN Web Press Operator Assistant Rheumatology MECHANIC documented in this encounter Plan of Treatment Upcoming Encounters Date Type Department Care Team (Late st Contact Info) Description 10/16/2023 10:00 AM CDT Virtual Visit [facility] Rheumatology Clinic [address] [phone] Adria Cisneros MD [address] [place] [address] [phone] Margaret Reyes, [facility] 11/09/2023 9:00 AM CDT Virtual Visit [facility] Rheumatology [address] [phone] Adria Cisneros MD [address] [place] [address] [phone] 01/14/2024 10:00 AM CDT Office Visit [facility] Eye [facility] - [address] [address] Shaan Ramirez MD [address] [place] [address] 325135 documented as of this encounter Visit Diagnoses Not on filedocumented in this encounter Additional Health Concerns Assessment Noted Time PHQ-9 Depression Total Score: 4 12/25/19 23 2:25 PM CDT documented as of this encounter Care Teams Real Estate Branch Manager Relationship Specialty Start Date End Date Luis Ambriz MD [address] [place] [address] PCP - General Family Medicine 02/16/22 Bola Amor, MVA STILL OPERATOR, [facility] [address] [place] [address] Assigned Behavioral Health Provider 12/04/21 Shaan Ramirez MD [address] [place] [address] Assigned Surgical Provider 12/04/[address] MD [address] [place] [address] 99921 Assigned Rheumatology Provider 02/25/22 Nini Patten MD [address] [place] [address] Endocrinology, Diabetes, and Metabolism 08/29/22 Nini Patten MD [address] [place] [address] Assigned Endocrinology Provider 01/20/23 documented as of this encounter
--- OUTSIDE RECORDS SUMMARY | 2023-09-25 19:48 | XMS_ITS | Encounter Summary ---
Author Name Unknown Organization [place] Address [address] [place] [address] Care Team Providers Care Garnishment Specialist Name Role Phone Bola Amor [facility], [facility] Unavailable [phone] Shaan Ramirez MD Unavailable [phone] Luis Ambriz MD Primary Care Provider [phone] MD Unavailable [phone] Nini Patten MD Unavailable [phone] Nini Patten MD Unavailable [phone] Encounter Details Date Type Department Care Team (Late st Contact Info) Description 07/10/2023 [facility] Rheumatology Clinic [address] [phone] MD [address] [place] [address] Social History Tobacco Use Types Packs/Day [...] Description 10/16/2023 10:00 AM CDT Virtual Visit [facility] Rheumatology Clinic [address] [phone] Adria Cisneros MD [address] [place] [address] [phone] Margaret Reyes, [facility] 11/09/2023 9:00 AM CDT Virtual Visit [facility] Rheumatology Clinic [address] [phone] Adria Cisneros MD [address] [place] [address] 753405 01/14/2024 10:00 AM CDT Office Visit [facility] Eye [address] [facility] [address] [place] [address] Shaan Ramirez MD [address] [place] [address] [phone] documented as of this encounter Visit Diagnoses Not on filedocumented in this encounter Additional Health Concerns Assessment Noted Time PHQ-9 Depression Total Score: 4 12/25/19 23 2:25 PM CDT documented as of this encounter Care Teams Garnishment Specialist Relationship Specialty Start Date End Date Luis Ambriz MD [address] [place] [address] [phone] PCP - General Family Medicine 02/16/22 Bola Amor, NEWSAGENT, [facility] [address] [facility] [address] [phone] Assigned Behavioral Health Provider 12/04/21 Shaan Ramirez MD [address] [place] [address] [phone] Assigned Surgical Provider 12/04/[address] MD [address] [place] [address] [phone] Assigned Rheumatology Provider 02/25/22 Nini aPtten MD [address] [place] [address] Endocrinology, Diabetes, and Metabolism 08/29/22 Nini Patten MD [address] [place] [address] [phone] Assigned Endocrinology Provider 01/20/23 documented as of this encounter
--- OUTSIDE RECORDS SUMMARY | 2023-09-25 19:48 | XMS_ITS | Encounter Summary ---
Author Name Unknown Organization [facility] Address [address] [place] [address] Care Team Providers Care District Supervisor Name Role Phone ZuleymaBola [facility], [facility] Unavailable [phone] Shaan Ramirez MD Unavailable [phone] Luis Ambriz MD Primary Care Provider [phone] MD Unavailable [phone] Nini Patten MD Unavailable [phone] Nini Patten MD Unavailable [phone] Margaret Reyes [facility] Unavailable Unavailable Encounter Details Date Type Department Care Team (Late st Contact Info) Description 07/06/2023 MyC Medical Advice [facility] Orthopedic Clinic [address] [place] [address] [facility] Social History Tobacco Use Types Packs/Day [...] Description 10/16/2023 10:00 AM CDT Virtual Visit [facility] Rheumatology Clinic [address] [phone] Adria Cisneros MD [address] [place] [address] Eric, Margaret M, [facility] 11/09/2023 9:00 AM CDT Virtual Visit [facility] Rheumatology Clinic [place] [address] [place] [phone] Adria Cisneros MD [address] [place] [address] 01/14/2024 10:00 AM CDT Office Visit [facility] Eye [address] [place] [address] Shaan Ramirez MD [address] [place] [address] [phone] documented as of this encounter Visit Diagnoses Not on filedocumented in this encounter Additional Health Concerns Assessment Noted Time PHQ-9 Depression Total Score: 4 12/25/19 23 2:25 PM CDT documented as of this encounter Care Teams District Supervisor Relationship Specialty Start Date End Date Luis Ambriz MD [address] [place] [address] 576355 PCP - General Family Medicine 02/16/22 Bola Amor, GLASS CUTTER, [facility] [address] [place] [address] [place] [address] Assigned Behavioral Health Provider 12/04/21 Shaan Ramirez MD [address] [place] [address] Assigned Surgical Provider 12/04/[address] MD [address] [place] [address] Assigned Rheumatology Provider 02/25/22 Nini Patten MD [address] [place] [address] Endocrinology, Diabetes, and Metabolism 08/29/22 Nini Patten MD [address] [place] [address] Assigned Endocrinology Provider 01/20/23 Margaret Reyes [facility] Pharmacist 08/10/23 documented as of this encounter
--- OUTSIDE RECORDS SUMMARY | 2023-09-25 19:48 | XMS_ITS | Encounter Summary ---
Author Name Unknown Organization [facility] Address [address] [place] [address] Care Team Providers Care Manufacturing Weaver Name Role Phone ZuleymaBola [facility], [facility] Unavailable [phone] Shaan Ramirez MD Unavailable [phone] Luis Ambriz MD Primary Care Provider [phone] MD Unavailable [phone] Nini Patten MD Unavailable [phone] Nini Patten MD Unavailable [phone] Margaret Reyes [facility] Unavailable Unavailable Reason for Visit * Reason Onset Date Comments Prior Auth - Medication 08/07/2023 [email or web address] Encounter Details Date Type Department Care Team (Late st Contact Info) Description 08/07/2023 Telephone [facility] Rheumatology Clinic [address] [address] Adria Cisneros MD [address] [place] [address] Prior Auth - Medication (xeljanz) Social History Tobacco Use Types Packs/Day Years [...] encounter Miscellaneous Notes * Telephone Encounter - Michael Masters - 09/06/2023 8:08 AM CST Images from the original note were not included. COPAY CARD OBTAINED Medication: XELJANZ 5 MG PO TABS Copay card Monthly Max Amount: $ 1,250 Copay card Annual Amount: $ 15,000 FOUNDER AND PRESIDENT * Telephone Encounter - Michael Masters - 08/31/2023 4:03 PM CST MEDICATION APPEAL APPROVED Medication: XELJANZ 5 MG PO TABS Authorization Effective Date: 08/31/2023 Authorization Expiration Date: 08/29/2024 Approved Dose/Quantity: bid Reference #: : [id number]) Appeal Insurance Company: [facility] Expected CoPay: $ CoPay Card Available: Yes Financial Assistance Needed: NO Filling Pharmacy: [facility] Patient Notified: YES Comments: FOUNDER AND PRESIDENT * Telephone Encounter - Michael Masters - 08/27/2023 12:33 PM CST Images from the original note were not included. Medication Appeal Initiation Medication: XELJANZ 5 MG PO TABS Appeal Start Date: 08/27/2023 Insurance Company: [facility] APPEALS Comments: FOUNDER AND PRESIDENT * Telephone Encounter - Neelam Hyde - 08/09/2023 2:24 PM CST Images from the original note were not included. PRIOR AUTHORIZATION DENIED Medication: XELJANZ 5 MG PO TABS Insurance Company: [employer] ([facility]) - Denial Date: 08/09/2023 Denial Reason(s): Appeal Information: Patient Notified: Ivy Lombardi, [facility] [email or web address] FOUNDER AND PRESIDENT * Telephone Encounter - Neelam Hyde - 08/07/2023 12:31 PM CST Images from the original note were not included. PA Initiation Medication: XELJANZ 5 MG PO TABS Insurance Company: Pharmacy Filling the Rx: Filling Pharmacy Phone: Filling Pharmacy Fax: Start Date: 08/07/2023 Ivy Lombardi, [facility] [email or web address] FOUNDER AND PRESIDENT documented in this encounter Plan of Treatment Upcoming Encounters Date Type Department Care Team (Late st Contact Info) Description 10/16/2023 10:00 AM CDT Virtual Visit [facility] Rheumatology Clinic [address] [phone] Adria Cisneros MD [address] [place] [address] [phone] Margaret Reyes, [facility] 11/09/2023 9:00 AM CDT Virtual Visit [facility] Rhe[facility]ology [facility] [address] [phone] Adria Cisneros MD [address] [place] [address] 267415 01/14/2024 10:00 AM CDT Office Visit [facility] Eye Clinic - [address] [phone] Shaan Ramirez MD [address] [place] [address] documented as of this encounter Visit Diagnoses Not on filedocumented in this encounter Additional Health Concerns Assessment Noted Time PHQ-9 Depression Total Score: 4 12/25/19 23 2:25 PM CDT documented as of this encounter Care Teams Manufacturing Weaver Relationship Specialty Start Date End Date Luis Ambriz MD [address] [place] [address] PCP - General Family Medicine 02/16/22 Bola Amor, [facility], [facility] [address] [place] [address] Assigned Behavioral Health Provider 12/04/21 Shaan Ramirez MD [address] [place] [address] [phone] Assigned Surgical Provider 12/04/[address] MD [address] [place] [address] 489605 Assigned Rheumatology Provider 02/25/22 Nini Patten MD [address] [place] [address] Endocrinology, Diabetes, and Metabolism 08/29/22 Nini Patten MD [address] [place] [address] Assigned Endocrinology Provider 01/20/23 Margaret Reyes, [facility] Pharmacist 08/10/23 documented as of this encounter
--- OUTSIDE RECORDS SUMMARY | 2023-09-25 19:48 | XMS_ITS | Encounter Summary ---
Author Name Unknown Organization [place] Address [address] [place] [address] Care Team Providers Care Radiology Technician Name Role Phone Bola Amor [facility], [facility] Unavailable [phone] Shaan Ramirez MD Unavailable [phone] Luis Ambriz MD Primary Care Provider [phone] MD Unavailable [phone] Nini Patten MD Unavailable [phone] Nini Patten MD Unavailable [phone] Encounter Details Date Type Department Care Team (Late st Contact Info) Description 07/06/2023 [facility] Rheumatology Clinic [address] [phone] MD [address] [place] [address] Social History Tobacco Use Types [...] Description 10/16/2023 10:00 AM CDT Virtual Visit [facility] Rheumatology Clinic [address] [phone] Adria Cisneros MD [address] [place] [address] [phone] Margaret Reyes, [facility] 11/09/2023 9:00 AM CDT Virtual Visit [facility] Rheumatology Clinic [address] [phone] Adria Cisneros MD [address] [place] [address] [phone] 01/14/2024 10:00 AM CDT Office Visit [facility] Eye [address] [facility] [address] [place] [address] Shaan Ramirez MD [address] [place] [address] [phone] documented as of this encounter Visit Diagnoses Not on filedocumented in this encounter Additional Health Concerns Assessment Noted Time PHQ-9 Depression Total Score: 4 12/25/19 23 2:25 PM CDT documented as of this encounter Care Teams Radiology Technician Relationship Specialty Start Date End Date Luis Ambriz MD [address] [place] [address] [id number] PCP - General Family Medicine 02/16/22 Bola Amor, DYE MAKER, [facility] [address] [phone] Assigned Behavioral Health Provider 12/04/21 Shaan Ramirez MD [address] [place] [address] 118545 Assigned Surgical Provider 12/04/[address] MD [address] [place] [address] 794375 Assigned Rheumatology Provider 02/25/22 Nini Patten MD [address] [place] [address] Endocrinology, Diabetes, and Metabolism 08/29/22 Nini Patten MD [address] [place] [address] [phone] Assigned Endocrinology Provider 01/20/23 documented as of this encounter
--- OUTSIDE RECORDS SUMMARY | 2023-09-25 19:48 | XMS_ITS | Encounter Summary ---
Author Name Unknown Organization [facility] Address [address] [place] [address] Care Team Providers Care Dormitory Maid Name Role Phone Bola Amor [facility], [facility] Unavailable [phone] Shaan Ramirez MD Unavailable [phone] Luis Ambriz MD Primary Care Provider [phone] Richmond aLne MD Unavailable [phone] Nini Patten MD Unavailable [phone] Nini Patten MD Unavailable [phone] [facility] Unavailable Unavailable Encounter Details Date Type Department Care Team (Late st Contact Info) Description 08/13/2023 [facility] Rheumatology Clinic [address] [phone] Adria Cisneros MD [address] [place] [address] Social History Tobacco Use Types Packs/Day [...] encounter Miscellaneous Notes * Telephone Encounter - Monserrat Cade - 08/13/2023 12:00 PM CST Lab orders faxed to LAB [phone] TESTER * Telephone Encounter - Rayo Monserrat - 08/13/2023 11:59 AM CST ----- Message from Cheryl Klein RN sent at 08/13/2023 10:39 AM CAN TESTER ----- Regarding: Please fax lab orders Hi Team- Please fax the two lab orders Dr. Cisneros signed yesterday- ALT and AST- to [facility] faxes: LAB [phone] Thank you! Cheryl TESTER documented in this encounter Plan of Treatment Upcoming Encounters Date Type Department Care Team (Late st Contact Info) Description 10/16/2023 10:00 AM CDT Virtual Visit [facility] Rheumatology Clinic [address] [phone] Adria Cisneros MD [address] [place] [address] [phone] Margaret Reyes, [facility] 11/09/2023 9:00 AM CDT Virtual Visit [facility] Rheumatology Clinic [address] [phone] Adria Cisneros MD [address] [place] [address] [phone] 01/14/2024 10:00 AM CDT Office Visit [facility] Eye Clinic - [address] [facility] [address] [place] [address] Shaan Ramirez MD [address] [place] [address] [phone] documented as of this encounter Visit Diagnoses Not on filedocumented in this encounter Additional Health Concerns Assessment Noted Time PHQ-9 Depression Total Score: 4 12/25/19 23 2:25 PM CDT documented as of this encounter Care Teams Dormitory Maid Relationship Specialty Start Date End Date Luis Ambriz MD [address] [place] [address] PCP - General Family Medicine 02/16/22 Bola Amor, WATCH CRYSTAL GRINDER, [facility] [address] [address] Assigned Behavioral Health Provider 12/04/21 Shaan Ramirez MD [address] [place] [address] Assigned Surgical Provider 12/04/[address] MD [address] [place] [address] Assigned Rheumatology Provider 02/25/22 Nini Patten MD [address] [place] [address] Endocrinology, Diabetes, and Metabolism 08/29/22 Nini Patten MD [address] [place] [address] Assigned Endocrinology Provider 01/20/23 Margaret Reyes, [facility] Pharmacist 08/10/23 documented as of this encounter
--- OUTSIDE RECORDS SUMMARY | 2023-09-25 19:48 | XMS_ITS | Encounter Summary ---
Author Name Unknown Organization [place] Address [address] [place] [address] Care Team Providers Care Business Office Manager Name Role Phone ZuleymaBola [facility], [facility] Unavailable + [phone] Shaan Ramirez MD Unavailable [phone] Luis Ambriz MD Primary Care Provider [phone] MD Unavailable [phone] Nini Patten MD Unavailable [phone] Nini Patten MD Unavailable [phone] Margaret Reyes [facility] Unavailable Unavailable Encounter Details Date Type Department Care Team (Late st Contact Info) Description 08/05/2023 External Order Results [facility] [address] [place] [address] Outside, Provider Social History Tobacco Use Types Packs/Day Years [...] Description 10/16/2023 10:00 AM CDT Virtual Visit [facility] Rheumatology Clinic [address] [phone] Adria Cisneros MD [address] [place] [address] Margaret Reyes [facility] 11/09/2023 9:00 AM CDT Virtual Visit [facility] Rheumatology Clinic [place] [address] [place] [phone] Adria Cisneros MD [address] [place] [address] 01/14/2024 10:00 AM CDT Office Visit [facility] Eye [place] [phone] [facility] [address] [place] [address] Shaan Ramirez MD [address] [place] [address] [phone] documented as of this encounter Procedures Procedure Name Priority Date/Time Associated Diagnosis Comments CBC WITH PLATELETS & DIFFERENTIAL Routine 08/05/2023 2:44 PM LAUNDRY MACHINE OPERATOR ERYTHROCYTE SEDIMENTATION RATE AUTO Routine 08/05/2023 2:44 PM LAUNDRY MACHINE OPERATOR CRP INFLAMMATION Routine 08/05/2023 2:44 PM LAUNDRY MACHINE OPERATOR COMPREHENSIVE METABOLIC PANEL Routine 08/05/2023 2:44 PM LAUNDRY MACHINE OPERATOR documented in this encounter Results * (ABNORMAL) Comprehensive metabolic panel (08/05/2023 2:44 PM LAUNDRY MACHINE OPERATOR) Sodium (External) 139 135 - 149 mmol/L [...] BLOOD SPECIMEN / Unknown 08/05/2023 2:44 PM LAUNDRY MACHINE OPERATOR Calli MCKAY PFT - 08/08/2023 10:56 AM LAUNDRY MACHINE OPERATOR Verified by Hilario Stevenson on 08/08/2023. Provider Outside LAB - BLOOD ORDERABL ES WOODY PFLauro NON-INTERFACED (ONBASE SCANS) * (ABNORMAL) CRP inflammation (08/05/2023 2:44 PM LAUNDRY MACHINE OPERATOR) CRP Inflammation (External) <0.5(L) 0.5 - 1.0 mg/dL NON-INTERFACE D (ONBASE SCANS) Blood BLOOD SPECIMEN / Unknown 08/05/2023 2:44 PM LAUNDRY MACHINE OPERATOR Calli MCKAY PFT - 08/08/2023 10:56 AM LAUNDRY MACHINE OPERATOR Verified by Hilario Stevenson on 08/08/2023. Provider Outside LAB - BLOOD ORDERABL ES WOODY PFT NON-INTERFACED (ONBASE SCANS) * Erythrocyte sedimentation rate auto (08/05/2023 2:44 PM LAUNDRY MACHINE OPERATOR) ESR (External) 7 2 - 20 mm/hr NON-INTERFACED (ONBASE SCANS) Blood BLOOD SPECIMEN / Unknown 08/05/2023 2:44 PM LAUNDRY MACHINE OPERATOR Narrative NIKOLAIEZE PFT - 08/08/2023 10:56 AM LAUNDRY MACHINE OPERATOR Verified by Hilario Stevenson on 08/08/2023. Provider Outside LAB - BLOOD ORDERABL ES Performing Organization Address City/[facility]/ZIP Co de Phone Number WOODY PFT NON-INTERFACED (ONBASE SCANS) * CBC with Platelets & Differential (08/05/2023 2:44 PM LAUNDRY MACHINE OPERATOR) WBC Count (External) 5.07 4.50 - 11.00 [...] BLOOD SPECIMEN / Unknown 08/05/2023 2:44 PM LAUNDRY MACHINE OPERATOR Narrative WOODY PFT - 08/08/2023 10:56 AM LAUNDRY MACHINE OPERATOR Verified by Hilario Stevenson on 08/08/2023. Provider Outside LAB - BLOOD ORDERABL ES WOODY PFT NON-INTERFACED (ONBASE SCANS) documented in this encounter Visit Diagnoses Not on filedocumented in this encounter Additional Health Concerns Assessment Noted Time PHQ-9 Depression Total Score: 4 12/25/19 23 2:25 PM CDT documented as of this encounter Care Teams Business Office Manager Relationship Specialty Start Date End Date Luis Ambriz MD [address] [place] [address] [phone] PCP - General Family Medicine 02/16/22 Bola Amor, COMPUTER REPAIR ENGINEER, [facility] [address] [place] [address] Assigned Behavioral Health Provider 12/04/21 Shaan Ramirez MD [address] [place], [place] [phone] Assigned Surgical Provider 12/04/[address] MD [address] [place], [place] 379695 Assigned Rheumatology Provider 02/25/22 Nini Patten MD [address] [place], [place] 717585 Endocrinology, Diabetes, and Metabolism 08/29/22 Nini Patten MD [address] [place], [place] 330175 Assigned Endocrinology Provider 01/20/23 Margaret Reyes, [facility] Pharmacist 08/10/23 documented as of this encounter
--- OUTSIDE RECORDS SUMMARY | 2023-09-25 19:49 | XMS_ITS | Encounter Summary ---
Author Name Unknown Organization [facility] Address [address] [place] [address] Care Team Providers Care Office Support Name Role Phone Bola Amor [facility] Unavailable + [phone] Shaan Ramirez MD Unavailable [phone] Luis Ambriz MD Primary Care Provider [phone] MD Unavailable [phone] Nini Patten MD Unavailable [phone] Nini Patten MD Unavailable [phone] Encounter Details Date Type Department Care Team (Late st Contact Info) Description 02/02/2023 12:00 PM CDT Lab [address] [phone] Type 2 diabetes mellitus without complication, without long-term current use of insulin (H); High risk medication use; Intermediate uveitis of both eyes Social History Tobacco Use Types Packs/Day Years Used Date Smoking Tobacco: Never Smokeless Tobacco: Never PHQ-2 Answer Date Recorded PHQ-2 Score 1 01/26/2023 Sex and Gender Information Value Date Recorded Sex Assigned at Female 11/23/2021 4:43 PM CDT Gender Identity Female 11/23/2021 4:43 PM CDT Sexual Orientation Bisexual 11/23/2021 4: 43 PM CDT COVID-19 Exposure Response Date Recorded In the last 10 days, have yo u been in contact with someone who was confirmed or suspected to have Coronavirus/COVID-19? No / Unsure 02/02/2023 11:28 AM CDT documented as of this encounter Plan of Treatment Upcoming Encounters Date Type Department Care Team (Late st Contact Info) Description 10/16/2023 10:00 AM CDT Virtual Visit [facility] Rheumatology Clinic [address] [phone] Adria Cisneros MD [address] [place] [phone] Margaret Reyes, [facility] 11/09/2023 9:00 AM CDT Virtual Visit [facility] Rheumatology [address] [phone] Adria Cisneros MD [address] [place] [address] 01/14/2024 10:00 AM CDT Office Visit [facility] - [address] 9 [address] Clin [address] [place] [address] Shaan Ramirez MD [address] [place] [address] documented as of this encounter Procedures Procedure Name Priority Date/Time Associated Diagnosis Comments ALBUMIN RANDOM URINE QUANTITATIVE Routine 02/02/2023 11:59 AM CDT Type 2 diabetes mellitus without complication, without long-term current use of insulin (H) CBC WITH PLATELETS AND DIFFERENTIAL Routine 02/02/2023 11:45 AM CDT High risk medication use Intermediate uveitis of both eyes CBC WITH PLATELETS & DIFFERENTIAL Routine 02/02/2023 11:45 AM CDT High risk medication use Intermediate uveitis of both eyes ERYTHROCYTE SEDIMENTATION RATE AUTO Routine 02/02/2023 11:45 AM CDT High risk medication use Intermediate uveitis of both eyes CRP INFLAMMATION Routine 02/02/2023 11:4 5 AM CDT High risk medication use Intermediate uveitis of both eyes COMPREHENSIVE METABOLIC PANEL Routine 02/02/2023 11:45 AM CDT High risk medication use Intermediate uveitis of both eyes documented in this encounter Results * Albumin Random Urine Quantitative with Creat Ratio (02/02/2023 11:59 AM CDT) Creatinine Urine mg/dL 232.0 mg/dL 02/02/2023 2:50 PM CDT [facility] Comment:The reference ranges have not been established in urine creatinine. The results should be integrated into the clinical context for interpretation. Albumin Urine mg/L 13.9 mg/L 2022 2:50 PM CDT [facility] Comment:The reference ranges have not been established in urine albumin. The results should be integrated into the clinical context for interpretation. Albumin Urine mg/g Cr 5.99 0.00 - 25.00 mg/g Cr 02/02/2023 2:50 PM CDT [facility] Comment: Microalbuminuria is defined as an albumin:creatinine ratio of 17 to 299 for males and 25 to 299 for females. A ratio of albumin:creatinine of 300 or higher is indicative of overt proteinuria. Due to biologic variability, positive results should be confirmed by a second, first-morning random or 24-hour timed urine specimen. If there is discrepancy, a third specimen is recommended. When 2 out of 3 results are in the microalbuminuria range, this is evidence for incipient nephropathy and warrants increased efforts at glucose control, blood pressure control, and institution of therapy with an qydarupiptz-fibysgowgw-gxhcxn (ROBERTO) inhibitor (if the patient can tolerate it). ?? Urine MID-STREAM URINE SPECIMEN / Unknown Non-blood Collection / Unknown 02/02/2023 11:59 AM CDT 02/02/2023 11:59 AM CDT Nini Patten MD LAB - URINE ORDERABL ES [facility] [place] [facility] [address] [facility], [address] [place] [address], [facility] [phone] * CBC with platelets and differential (02/02/2023 11:45 AM CDT) [facility] WBC Count 7.8 4.0 - 11.0 10e3/uL 02/02/2023 11:56 AM CDT [facility] RBC Count 4.48 3.80 - 5.20 10e6/uL 02/02/2023 11:56 AM CDT [facility] Hemoglobin 14.1 11.7 - 15.7 g/dL 02/02/2023 11:56 AM CDT [facility] Hematocrit 40.4 35.0 - 47.0 % 02/02/2023 11:56 AM CDT [facility] MCV 90 78 - 100 fL 02/02/2023 11:56 AM CDT [facility] MCH 31.5 26.5 - 33.0 pg 02/02/2023 11:56 AM CDT [facility] MCHC 34.9 31.5 - 36.5 g/dL 02/02/2023 11:56 AM CDT [facility] RDW 11.7 10.0 - 15.0 % 02/02/2023 11:56 AM CDT [facility] Platelet Count 302 150 - 450 10e3/uL 02/02/2023 11:56 AM CDT [facility] % Neutrophils 58 % 02/02/2023 11:56 AM CDT [facility] % Lymphocytes 33 % 02/02/2023 11:56 AM CDT [facility] % Monocytes 6 % 02/02/2023 11:56 AM CDT [facility] % Eosinophils 2 % 02/02/2023 11:56 AM CDT [facility] % Basophils 1 % 02/02/2023 11:56 AM CDT [facility] % Immature Granulocytes 0 % 02/02/2023 11:56 AM CDT [facility] NRBCs per 100 WBC 0 <1 /100 023 11:56 AM CDT [facility] Absolute Neutrophils 4.5 1.6 - 8.3 10e3/uL 02/02/2023 11:56 AM CDT [facility] Absolute Lymphocytes 2.6 0.8 - 5.3 10e3/uL 02/02/2023 11:56 AM CDT [facility] Absolute Monocytes 0.5 0.0 - 1.3 10e3/uL 02/02/2023 11:56 AM CDT [facility] Absolute Eosinophils 0.1 0.0 - 0.7 10e3/uL 02/02/2023 11:56 AM CDT [facility] Absolute Basophils 0.1 0.0 - 0.2 10e3/uL 02/02/2023 11:56 AM CDT [facility] Absolute Immature Granulocytes 0.0 <=0.4 10e3/uL 02/02/2023 11:56 AM CDT [facility] Absolute NRBCs 0.0 10e3/uL 02/02/2023 11:56 AM CDT [facility] Blood STRUCTURE OF LEFT HAND / Unknown Venipuncture / Unknown 02/02/2023 11:45 AM CDT 02/02/2023 11:[address] MD LAB - BLOOD [facility] Organization Address [facility]/State/ZIP Co de Phone Number [facility] [address] [facility] 1st [place] [address] * Comprehensive metabolic panel (02/02/2023 11:45 AM CDT) Sodium 137 136 - 145 mmol/L 02/02/2023 12:17 PM CDT [facility] Potassium 4.2 3.4 - 5.3 mmol/L 02/02/2023 12:17 PM CDT [facility] Chloride 102 98 - 107 mmol/L 02/02/2023 12:17 PM CDT [facility] Carbon Dioxide (CO2) 24 22 - 29 mmol/L 02/02/2023 12:17 PM CDT [facility] Anion Gap 11 7 - 15 mmol/L 02/02/2023 12:17 PM CDT [facility] Urea Nitrogen 11.2 6.0 - 20.0 mg/dL 02/02/2023 12:17 PM CDT [facility] Creatinine 0.92 0.51 - 0.95 mg/dL 02/02/2023 12:17 PM CDT [facility] Calcium 10.0 8.6 - 10.0 mg/dL 02/02/2023 12:17 PM CDT [facility] Glucose 95 70 - 99 mg/dL 02/02/2023 12:17 PM CDT [facility] Alkaline Phosphatase 90 35 - 104 U/L 02/02/2023 12:17 PM CDT [facility] AST 34 0 - 45 U/L 02/02/2023 12:17 PM CDT [facility] Comment:Reference intervals for this test were updated on 01/15/2023 to more accurately reflect our healthy population. There may be differences in the flagging of prior results with similar values performed with this method. Interpretation of those prior results can be made in the context of the updated reference intervals. ALT 49 0 - 50 U/L 02/02/2023 12:17 PM CDT [facility] Comment:Reference intervals for this test were updated on 01/15/2023 to more accurately reflect our healthy population. There may be differences in the flagging of prior results with similar values performed with this method. Interpretation of those prior results can be made in the context of the updated reference intervals. Protein Total 7.4 6.4 - 8.3 g/dL 02/02/2023 12:17 PM CDT [facility] Albumin 4.5 3.5 - 5.2 g/dL 02/02/2023 12:17 PM CDT [facility] Bilirubin Total 0.8 <=1.2 mg/dL 02/02/2023 12:17 PM CDT [facility] GFR Estimate 78 >60 mL/min/1. 73m2 02/02/2023 12:17 PM CDT [facility] Blood STRUCTURE OF LEFT HAND / Unknown Venipuncture / Unknown 02/02/2023 11:45 AM CDT 02/02/2023 11:[address] MD LAB - BLOOD [facility] Organization Address City/State/ZIP Co de Phone Number [facility] [address] 1st [place] [address] * CRP inflammation (02/02/2023 11:45 AM CDT) CRP Inflammation <3.00 <5.00 mg/L 02/03/20 12:17 PM CDT [facility] Blood STRUCTURE OF LEFT HAND / Unknown Venipuncture / Unknown 02/02/2023 11:45 AM CDT 02/02/2023 11:[address] MD LAB - BLOOD [place] [facility] Performing Organization Address City/[facility]/ZIP Co de Phone Number [facility] [address] [place] [address] * Erythrocyte sedimentation rate auto (02/02/2023 11:45 AM CDT) Pathologist [facility] Erythrocyte Sedimentation Rate 10 0 - 20 mm/hr 02/02/2023 12:05 PM CDT [facility] Blood STRUCTURE OF LEFT HAND / Unknown Venipuncture / Unknown 02/02/2023 11:45 AM CDT 02/02/2023 11:[address] MD LAB - BLOOD [place] [facility] [address] [place] [address] documented in this encounter Visit Diagnoses Diagnosis Type 2 diabetes mellitus without complication, without long-term current use of insulin (H) High risk medication use Encounter for long-term (current) use of other medications Intermediate uveitis of both eyes documented in this encounter Additional Health Concerns Assessment Noted Time PHQ-9 Depression Total Score: 4 12/25/19 23 2:25 PM CDT documented as of this encounter Care Teams Office Support Relationship Specialty Start Date End Date Luis Ambriz MD [address] [place] [address] PCP - General Family Medicine 02/16/22 Bola Amor, HORTICULTURAL WORKER, [facility] [address] [place] [address] Assigned Behavioral Health Provider 12/04/21 Shaan Ramirez MD [address] [place] [address] Assigned Surgical Provider 12/04/[address] MD [address] [place] [address] Assigned Rheumatology Provider 02/25/22 Nini Patten MD [address] [place] [address] Endocrinology, Diabetes, and Metabolism 08/29/22 Nini Patten MD [address] [place] [phone] Assigned Endocrinology Provider 01/20/23 documented as of this encounter
--- OUTSIDE RECORDS SUMMARY | 2023-09-25 19:49 | XMS_ITS | Encounter Summary ---
Author Name Unknown Organization [place] Address [address] [place] [address] Care Team Providers Care Latin American Studies Professor Name Role Phone Bola Amor [facility] Unavailable [phone] Shaan Ramirez MD Unavailable [phone] Luis Ambriz MD Primary Care Provider [phone] MD Unavailable [phone] Nini Patten MD Unavailable [phone] Nini Patten MD Unavailable [phone] Reason for Visit * Reason Onset Date Comments Refill Request 04/10/2023 Encounter Details Date Type Department Care Team (Late st Contact Info) Description 04/10/2023 Refill [facility] Endocrinology Clinic [address] 3rd [place] [phone] Nevaeh Pimentel, RN Refill Request Social History Tobacco Use Types Packs/Day Years [...] suspected to have Coronavirus/COVID-19? No / Unsure 03/30/2023 10:48 AM CDT documented as of this encounter Plan of Treatment Upcoming Encounters Date Type Department Care Team (Late st Contact Info) Description 10/16/2023 10:00 AM CDT Virtual Visit [facility] Rheumatology Clinic [address] [phone] Adria Cisneros MD [address] [place] [address] [phone] Margaret Reyes, [facility] 11/09/2023 9:00 AM CDT Virtual Visit [facility] Rheumatology [address] [phone] Adria Cisneros MD [address] [place] [phone] 01/14/2024 10:00 AM CDT Office Visit [facility] [place] [facility] [address] [facility] 9th Fl Clin [address] [place] [address] Shaan Ramirez MD [address] [place] [address] [phone] documented as of this encounter Visit Diagnoses Diagnosis Diabetes mellitus, type 2 (H)- Primary Type II or unspecified type diabetes mellitus without mention of complication, not stated as uncontrolled documented in this encounter Additional Health Concerns Assessment Noted Time PHQ-9 Depression Total Score: 4 12/25/19 23 2:25 PM CDT documented as of this encounter Care Teams Latin American Studies Professor Relationship Specialty Start Date End Date Luis Ambriz MD [address] [place] [address] PCP - General Family Medicine 02/16/22 Bola Amor, PSYCHOLOGICAL TESTS SALES AGENT, [facility] [address] [facility] [address] [facility] [address] [place], [place] [phone] Assigned Behavioral Health Provider 12/04/21 Shaan Ramirez MD [address] [place], [place] 100445 Assigned Surgical Provider 12/04/[address] MD [address] [place], [place] [phone] Assigned Rheumatology Provider 02/25/22 Nini Patten MD [address] [place] [address] Endocrinology, Diabetes, and Metabolism 08/29/22 Nini Patten MD [address] [place] [address] Assigned Endocrinology Provider 01/20/23 documented as of this encounter
--- OUTSIDE RECORDS SUMMARY | 2023-09-25 19:49 | XMS_ITS | Encounter Summary ---
Author Name Unknown Organization [facility] Address [address] [place] [address] Care Team Providers Care Cream Buyer Name Role Phone ZuleymaBola [facility], [facility] Unavailable [phone] Shaan Ramirez MD Unavailable [phone] Luis Ambriz MD Primary Care Provider [phone] MD Unavailable [phone] Nini Patten MD Unavailable [phone] Nini Patten MD Unavailable [phone] Reason for Visit * Reason Comments Uveitis Follow-Up Encounter Details Date Type Department Care Team (Late st Contact Info) Description 02/02/2023 9:00 AM CDT Office Visit [facility] [address] [facility] [address] [place] [address] Shaan Ramirez MD [address] [place] [address] Intermediate uveitis of both eyes (Primary Dx); [...] Recorded In the last 10 days, have johanne humphrey been in contact with someone who was confirmed or suspected to have Coronavirus/COVID-19? No / Unsure 02/02/2023 9:00 AM CDT documented as of this encounter Patient Instructions * Patient Instructions* Shaan Ramirez MD - 02/02/2023 9:00 AM CDT We discussed that given slight increase in inflammation now 4 months off Humira and methotrexate, that things are just starting to return in the left eye. Given prior infections on Humira and methotrexate, it would be reasonable to continue drops and perhaps restart methotrexate only 10-15 mg per week if okay with Dr. Lane Eye pressure is 16 on the right, 12 on the left. WE can monitor without drops for pressure lowering Continue prednisolone drops 2x/day in each eye When you can see Dr. Lomeli this would be great documented in this encounter Progress Notes * Shaan Ramirez MD - 02/02/2023 9:00 AM CDT Chief Complaint/Presenting Concern: Uveitis follow-up Interval History of Present Ocular Illness: Amelia Sr is a 47 year old patient who returns for follow up of her intermediate uveitis. At last visit 10/27/22 there was some active iritis but intermediate uveitis was subtle and only active by angiography, thought to be most likely due to being off Humira and Methotrexate to allow body to recover from ear infections. We restarted prednisolone drops 2x/dyay in each eye to prevent flares. Today, Amelia notes that she has been seeing a slightly larger floater in each eye lately. No other increase in small floaters like a line in the right eye and a blob in the left eye.. She continues to have rare flashes of light in the vision that have improved since previously. No eye pain, no photophobia. No other issues. Interval Updates to Medical/Family/Social History: 1. Saw Real Estate Services Coordinator Dr. Lane 01/26/23, discussed that plan would be to restart methotrexate if there is active uveitis at this appointment. 2. 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 This is encouraging evenwith more exercise and sweating. Relevant Review of Systems Updates: Ear infections have resolved, done with antibiotics. 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 Current eye related medications: Prednisolone 2x/day both eyes, off Humira and Methotrexate since September 2022. Retina/Uveitis Imaging: OCT Spectralis Macula February 02, 2023 right eye: Normal contour, no fluid. Stable mild choroidal thickening. No NFL thickening, no PP fluid. left eye: Normal contour, no fluid. Stable mild choroidal thickening. No NFL thickening, no PP fluid. Assessment: 1. Intermediate uveitis of both eyes Trace cells in vitreous right eye, trace to 1+ vitreous cells with 2 small snowballs in left eye. ?? 2. Cystoid macular edema of both eyes None by OCT macula today. ?? 3. Recurrent iritis, bilateral Continues to have some mild activity today. ?? 4. High risk medication use Currently on systemic medication break due to treatment of ear infection. Plan/Recommendations: ??? Discussed findings with patient. There continues to be some mild activity of the iritis (front of the eye inflammation). The right eye vitreous appears stable and inactive, the left eye vitreous may have slightly more inflammation with 2 snowballs today although there is no macular edema ??? We discussed that given slight increase in inflammation now 4 months off Humira and methotrexate, that things are just starting to return in the left eye. Given prior infections on Humira and methotrexate, it would be reasonable to continue drops and perhaps restart methotrexate only 10-15 mg per week if okay with Dr. Lane ??? Eye pressure is 16 on the right, 12 on the left. WE can monitor without drops for pressure lowering ??? Continue prednisolone drops 2x/day in each eye ??? When you can see Dr. Lomeli this would be great RTC Audrey tonopesvitlana, AC check, dilate, OCT Macula. Cachorro Méndez MD Ophthalmology Resident PGY-3 Attending Physician Attestation: Complete documentation of historical and exam elements from today's encounter can be found in the full encounter summary report (not reduplicated in this progress note). I reviewed the chief complaint(s) and history of present illness, and confirmed and edited as nec essary the review of systems, past medical/surgical history, family history, social history, and examination findings as documented by others and the treating Resident or Fellow Physician. I examined the patient myself, discussed the findings, reviewed all ancillary testing data and modified these results and reports along with the assessment and plan with the Treating Resident or Fellow Physician. I agree with the note as detailed above. Shaan Ramirez M.D. Uveitis and Medical Retina February 02, 2023 documented in this encounter Nursing Notes * Mirta Aguilar - 02/02/2023 9:00 AM CDT Chief Complaints and History of Present Illnesses Patient presents with ??? Uveitis Follow-Up Chief Complaint(s) and History of Present Illness(es) Uveitis Follow-Up Laterality: both eyes Onset: months ago Quality: States va is the same since last visit Severity: moderate Frequency: intermittently Associated symptoms: flashes (few this past month) and floaters (have been more noticable). Negative for photophobia Treatments tried: eye drops Pain scale: 0/10 Comments Here for Intermediate uveitis of both eyes Prednisolone BID each eye Mirta REYES 9:14 AM February 02, 2023 documented in this encounter Plan of Treatment Upcoming Encounters Date Type Department Care Team (Late st Contact Info) Description 10/16/2023 10:00 AM CDT Virtual Visit [facility] [address] [phone] Adria Cisneros MD [address] [place] [address] [phone] Margaret Reyes, [facility] 11/09/2023 9:00 AM CDT Virtual Visit [facility] [address] [phone] Adria Cisneros MD [address] [place] [address] [place] [address] 01/14/2024 10:00 AM CDT Office Visit [facility] Raza Kinsey [facility] [address] [facility] [address] [place] [address] Shaan Ramirez MD [address] [place] [address] documented as of this encounter Procedures Procedure Name Priority Date/Time Associated Diagnosis Comments OCT RETINA SPECTRALIS OU (BOTH EYE) Routine 02/02/2023 10:56 AM CDT Intermediate uveitis of both eyes documented in this encounter Results * OCT Retina Spectralis OU (both eyes) (06/08/2023 3:08 PM CDT) Narrative Shaan Ramirez MD - 06/08/2023 3:08 PM CDT Performed [...] no PP fluid Shaan Ramirez MD OPHTHALMOLOGY * OCT Retina Spectralis OU (both eyes) (02/02/2023 10:56 AM CDT) Narrative Shaan Ramirez MD - 02/02/2023 10:56 AM CDT Performed by: EG . Patient cooperation: Reliable . Right Eye Reliability of the test: Good . Plan: Monitor . Interval: Same . Left Eye Reliability of the test: Good . Plan: Monitor . Interval: Same . Notes OCT Spectralis Macula February 02, 2023 right eye: Normal contour, no fluid. Stable mild choroidal thickening. No NFL thickening, no PP fluid. left eye: Normal contour, no fluid. Stable mild choroidal thickening. No NFL thickening, no PP fluid. 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 High risk medication use Encounter for long-term (current) use of other medications documented in this encounter Additional Health Concerns Assessment Noted Time PHQ-9 Depression Total Score: 4 12/25/19 23 2:25 PM CDT documented as of this encounter Care Teams Cream Buyer Relationship Specialty Start Date End Date Luis Ambriz MD [address] [place] [address] [id number] PCP - General Family Medicine 02/16/22 Bola Amor, WASH TEST CHECKER, [facility] [address] [place] [address] [phone] Assigned Behavioral Health Provider 12/04/21 Shaan Ramirez MD [address] [place] [address] [id number] Assigned Surgical Provider 12/04/[address] MD [address] [place], [place] [id number] Assigned Rheumatology Provider 02/25/22 Nini Patten MD [address] [place] [address] [phone] Endocrinology, Diabetes, and Metabolism 08/29/22 Nini Patten MD [address] [place] [address] Assigned Endocrinology Provider 01/20/23 documented as of this encounter
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
--- OUTSIDE RECORDS SUMMARY | 2023-09-25 19:49 | XMS_ITS | Encounter Summary ---
Author Name Unknown Organization [place] Address [address] [place] [address] 87275 Care Team Providers Care Grader Operator Name Role Phone Bola Amor [facility], [facility] Unavailable [phone] Shaan Ramirez MD Unavailable [phone] Luis Ambriz MD Primary Care Provider [phone] MD Unavailable [phone] Nini Patten MD Unavailable [phone] Nini Patten MD Unavailable [phone] Encounter Details Date Type Department Care Team (Late st Contact Info) Description 02/27/2023 Telephone [facility] [address] [address] MD [address] [place] [address] Social History Tobacco Use Types [...] AM CDT documented as of this encounter Miscellaneous Notes * Telephone Encounter - Lynn Khan - 02/27/2023 2:26 PM CDT LVM and iggyt sent for the patient to call back and schedule the following: Appointment type: Return Video Provider: Dr. Lane Return date: April 2023 Specialty phone number: [phone] Additional appointment(s) needed: Additonal Notes: follow-up with me in 3 months by video on a Sunday, Can use AMRY if needed. documented in this encounter Plan of Treatment Upcoming Encounters Date Type Department Care Team (Late st Contact Info) Description 10/16/2023 10:00 AM CDT Virtual Visit [facility] [address] [phone] Adria Cisnerso MD [address] [place] [address] Margaret Reyes, [facility] 11/09/2023 9:00 AM CDT Virtual Visit [facility] [address] [phone] Adria Cisneros MD [address] [place] [address] 01/14/2024 10:00 AM CDT Office Visit [facility] Eye Clinic - [address] 9 [address] Clin 9A [place] [address] Shaan Ramirez MD [address] [place] [address] documented as of this encounter Visit Diagnoses Not on filedocumented in this encounter Additional Health Concerns Assessment Noted Time PHQ-9 Depression Total Score: 4 12/25/19 23 2:25 PM CDT documented as of this encounter Care Teams Grader Operator Relationship Specialty Start Date End Date Luis Ambriz MD [address] [place] [address] PCP - General Family Medicine 02/16/22 Bola Amor, ENVIRONMENTAL MONITORING TECHNICIAN, [facility] [address] [place] [address] Assigned Behavioral Health Provider 12/04/21 Shaan Ramirez MD [address] [place] [address] 686415 Assigned Surgical Provider 12/04/[address] MD [address] [place] [address] Assigned Rheumatology Provider 02/25/22 Nini Patten MD [address] [place] [address] 039095 Endocrinology, Diabetes, and Metabolism 08/29/22 Nini Patten MD [address] [place] [address] 873965 Assigned Endocrinology Provider 01/20/23 documented as of this encounter
--- OUTSIDE RECORDS SUMMARY | 2023-09-25 19:49 | XMS_ITS | Encounter Summary ---
Author Name Unknown Organization [place] Address [address] [place] [address]851 Care Team Providers Care Client Experience Manager Name Role Phone ZuleymaBola [facility], [facility] Unavailable + [phone] Shaan Ramirez MD Unavailable [phone] Luis Ambriz MD Primary Care Provider [phone] MD Unavailable [phone] Nini Patten MD Unavailable [phone] Nini Patten MD Unavailable [phone] Encounter Details Date Type Department Care Team (Latest Contact Info) Description 02/02/2023 Travel Social History Tobacco Use Types Packs/Day [...] Description 10/16/2023 10:00 AM CDT Virtual Visit [facility] Rheumatology Clinic [address] [address] Adria Cisneros MD [address] [place] [address] Margaret Reyes, [facility] 11/09/2023 9:00 AM CDT Virtual Visit [facility] Rheumatology Clinic [address] [phone] Adria Cisneros MD [address] [place] [address] 811385 01/14/2024 10:00 AM CDT Office Visit [facility] Eye [address] [address] Shaan Ramirez MD [address] [place] [address] 036895 documented as of this encounter Visit Diagnoses Not on filedocumented in this encounter Additional Health Concerns Assessment Noted Time PHQ-9 Depression Total Score: 4 12/25/19 23 2:25 PM CDT documented as of this encounter Care Teams Client Experience Manager Relationship Specialty Start Date End Date Luis Ambriz MD [address] [place] [address]187 PCP - General Family Medicine 02/16/22 Bola Amor, ACETYLENE CYLINDER PACKING MIXER, [facility] [address] [place] [address] 11274 Assigned Behavioral Health Provider 12/04/21 Shaan Ramirez MD [address] [place] [address] 363075 Assigned Surgical Provider 12/04/[address] MD [address] [place] [address] 959095 Assigned Rheumatology Provider 02/25/22 Nini Patten MD [address] [place] [address] Endocrinology, Diabetes, and Metabolism 08/29/22 Nini Patten MD [address] [place], [place] 78168455 Assigned Endocrinology Provider 01/20/23 documented as of this encounter
--- OUTSIDE RECORDS SUMMARY | 2023-09-25 19:49 | XMS_ITS | Encounter Summary ---
Author Name Unknown Organization [place] Address [address] [place] [address] 49280 Care Team Providers Care Chief Of Safety And Protection Name Role Phone Bola Amor [facility], [facility] Unavailable + [phone] Shaan Ramirez MD Unavailable [phone] Luis Ambriz MD Primary Care Provider [phone] MD Unavailable [phone] Nini Patten MD Unavailable [phone] Reason for Visit * Reason Onset Date Comments Clinic Care Coordination - Follow-up 01/15/2023 Faxed lab order Encounter Details Date Type Department Care Team (Late st Contact Info) Description 01/15/2023 [facility] Endocrinology [facility] [address] [address] Nini Patten MD [address] [place] [address] Clinic Care Coordination - Follow-up (Faxed lab order) Social History Tobacco Use Types Packs/Day Years Used Date Smoking Tobacco: Never Smokeless Tobacco: Never PHQ-2 Answer Date Recorded PHQ-2 Score 0 01/15/2023 Sex and Gender Information Value Date Recorded Sex Assigned at Female 11/23/2021 4:43 PM CDT Gender Identity Female 11/23/2021 4:43 PM CDT Sexual Orientation Bisexual 11/23/2021 4: 43 PM CDT COVID-19 Exposure Response Date Recorded In the last 10 days, have yo u been in contact with someone who was confirmed or suspected to have Coronavirus/COVID-19? Unable to assess 01/10/2023 3:01 PM CDT documented as of this encounter Miscellaneous Notes * Telephone Encounter - [place] Chrissy - 01/15/2023 2:00 PM CDT Per patient request I faxed the urine lab order to Claudio at [phone]. Chrissy [place] documented in this encounter Plan of Treatment Upcoming Encounters Date Type Department Care Team (Late st Contact Info) Description 10/16/2023 10:00 AM CDT Virtual Visit [facility] Rheumatology Clinic [address] [phone] Adria Cisneros MD [address] [place] [address] 889315 Margaret Reyes, [facility] 11/09/2023 9:00 AM CDT Virtual Visit [facility] Rheumatology Clinic [address] [phone] Adria Cisneros MD [address] [place] [address] 192505 01/14/2024 10:00 AM CDT Office Visit [facility] Eye Clinic - [address] [phone] Shaan Ramirez MD [address] [place] [address] 894575 documented as of this encounter Visit Diagnoses Not on filedocumented in this encounter Additional Health Concerns Assessment Noted Time PHQ-9 Depression Total Score: 4 12/25/19 23 2:25 PM CDT documented as of this encounter Care Teams Chief Of Safety And Protection Relationship Specialty Start Date End Date Luis Ambriz MD [address] [place] [address]4426 PCP - General Family Medicine 02/16/22 Bola Amor, DIRECTOR PAYMENT, [facility] [address] [place] [address]133 Assigned Behavioral Health Provider 12/04/21 Shaan Ramirez MD [address] [place] [address] 39411 Assigned Surgical Provider 12/04/[address] MD [address] [place] [address] 73719 Assigned Rheumatology Provider 02/25/22 Nini Patten MD [address] [place] [address]117 Endocrinology, Diabetes, and Metabolism 08/29/22 documented as of this encounter
--- OUTSIDE RECORDS SUMMARY | 2023-09-25 19:49 | XMS_ITS | Encounter Summary ---
Author Name Unknown Organization [place] Address [address] [place] [address] Care Team Providers Care Warehouse Engineer Name Role Phone Bola Amor [facility], [facility] Unavailable [phone] Shaan Ramirez MD Unavailable [phone] Luis Ambriz MD Primary Care Provider [phone] MD Unavailable [phone] Nini Patten MD Unavailable [phone] Nini Patten MD Unavailable [phone] Margaret Reyes [facility] Unavailable Unavailable Encounter Details Date Type Department Care Team (Late st Contact Info) Description 01/15/2023 Jacqueline Naranjo [facility] Endocrinology Clinic [address] [address] Nini Patten MD [address] [place] [address] Social History Tobacco Use Types Packs/Day [...] Description 10/16/2023 10:00 AM CDT Virtual Visit [facility] Rheumatology Clinic [address] [phone] Adria Cisneros MD [address] [place] [address] 196985 Margaret Ryees, [facility] 11/09/2023 9:00 AM CDT Virtual Visit [facility] [address] [phone] Adria Cisneros MD [address] [place] [address] 209855 01/14/2024 10:00 AM CDT Office Visit [facility] Eye Clinic [address] 9[address] Fl Clin 9A [place] [phone] Shaan Ramirez MD [address] [place] [address] 630505 documented as of this encounter Visit Diagnoses Not on filedocumented in this encounter Additional Health Concerns Assessment Noted Time PHQ-9 Depression Total Score: 4 12/25/19 23 2:25 PM CDT documented as of this encounter Care Teams Warehouse Engineer Relationship Specialty Start Date End Date Luis Ambriz MD [address] [place] [address] 117555 PCP - General Family Medicine 02/16/22 Bola Amor, BAG END SEWER, [facility] [address] [facility] [address] [place] [address] Assigned Behavioral Health Provider 12/04/21 Shaan Ramirez MD [address] [place] [address] Assigned Surgical Provider 12/04/[address] MD [address] [place] [address] Assigned Rheumatology Provider 02/25/22 Nini Patten MD [address] [place] [address] Endocrinology, Diabetes, and Metabolism 08/29/22 Nini Patten MD [address] [place] [address] Assigned Endocrinology Provider 01/20/23 Margaret Reyes, [facility] Pharmacist 08/10/23 documented as of this encounter
--- OUTSIDE RECORDS SUMMARY | 2023-09-25 19:49 | XMS_ITS | Encounter Summary ---
Author Name Unknown Organization [place] Address [address] [place] [address] 0[address] Care Team Providers Care Export Specialist Name Role Phone ZuleymaBola [facility], [facility] Unavailable [phone] Shaan Ramirez MD Unavailable [phone] Luis Ambriz MD Primary Care Provider [phone] MD Unavailable [phone] Nini Patten MD Unavailable [phone] Nini Patten MD Unavailable [phone] Encounter Details Date Type Department Care Team (Late st Contact Info) Description 05/14/2023 Telephone [facility] Eye [address] Clin [address]A [place] [address] Shaan Ramirez MD [address] [place] [address] [phone] Social History Tobacco Use Types Packs/Day Years [...] encounter Miscellaneous Notes * Telephone Encounter - Mirta Aguilar - 05/14/2023 10:52 AM CDT Called and left a message asking to reschedule Monday 05/[address] Ramirez for another day. I left the call centers phone number or asked to mychart back with a day and time. documented in this encounter Plan of Treatment Upcoming Encounters Date Type Department Care Team (Late st Contact Info) Description 10/16/2023 10:00 AM CDT Virtual Visit [facility] Rheumatology Clinic [address] [phone] Adria Cisneros MD [address] [place] [address] [phone] Margaret Reyes, [facility] 11/09/2023 9:00 AM CDT Virtual Visit [facility]umatology [facility] [address] [phone] Adria Cisneros MD [address] [place] [address] 632895 01/14/2024 10:00 AM CDT Office Visit [facility] Eye Clinic - [address] Clin [address] [place] [address] Shaan Ramirez MD [address] [place] [address] documented as of this encounter Visit Diagnoses Not on filedocumented in this encounter Additional Health Concerns Assessment Noted Time PHQ-9 Depression Total Score: 4 12/25/19 23 2:25 PM CDT documented as of this encounter Care Teams Export Specialist Relationship Specialty Start Date End Date Luis Ambriz MD [address] [place] [address] 01606 PCP - General Family Medicine 02/16/22 Bola Amor, TRACK WALKER, [facility] [address] [place] [address] 528405 Assigned Behavioral Health Provider 12/04/21 Shaan Ramirez MD [address] [place] [address] 460095 Assigned Surgical Provider 12/04/[address] MD [address] [place] [address] 892245 Assigned Rheumatology Provider 02/25/22 Nini Patten MD [address] [place] [address] 156475 Endocrinology, Diabetes, and Metabolism 08/29/22 Nini Patten MD [address] [place] [address] 157565 Assigned Endocrinology Provider 01/20/23 documented as of this encounter
--- OUTSIDE RECORDS SUMMARY | 2023-09-25 19:49 | XMS_ITS | Encounter Summary ---
Author Name Unknown Organization [place] Address [address] [place] [address] 8[address]42 Care Team Providers Care Drilling Plant Operator Name Role Phone ZuleymaBola [facility], [facility] Unavailable + [phone] Shaan Ramirez MD Unavailable [phone] Luis Ambriz MD Primary Care Provider [phone] MD Unavailable [phone] Nini Patten MD Unavailable [phone] Nini Patten MD Unavailable [phone] Encounter Details Date Type Department Care Team (Latest Contact Info) Description 03/30/2023 Travel Social History Tobacco Use Types Packs/Day [...] Description 10/16/2023 10:00 AM CDT Virtual Visit [facility] Rheumatology Clinic [address] [address] Adria Cisneros MD [address] [place] [address] Margaret Reyes, [facility] 11/09/2023 9:00 AM CDT Virtual Visit [facility] Rheumatology Clinic [address] [phone] Adria Cisneros MD [address] [place] [address] [phone] 01/14/2024 10:00 AM CDT Office Visit [facility] Eye [address] [address] Shaan Ramirez MD [address] [place] [address] [phone] documented as of this encounter Visit Diagnoses Not on filedocumented in this encounter Additional Health Concerns Assessment Noted Time PHQ-9 Depression Total Score: 4 12/25/19 23 2:25 PM CDT documented as of this encounter Care Teams Drilling Plant Operator Relationship Specialty Start Date End Date Luis Ambriz MD [address] [place] [address] 83200 PCP - General Family Medicine 02/16/22 Bola Amor, SCHOOL LIBRARIAN, [facility] [address] [place] [address] 01396 Assigned Behavioral Health Provider 12/04/21 Shaan Ramirez MD [address] [place] [address] 647225 Assigned Surgical Provider 12/04/[address] MD [address] [place] [address] 489375 Assigned Rheumatology Provider 02/25/22 Nini Patten MD [address] [place] [address] Endocrinology, Diabetes, and Metabolism 08/29/22 Nini Patten MD [address] [place], [place] 61950455 Assigned Endocrinology Provider 01/20/23 documented as of this encounter
--- OUTSIDE RECORDS SUMMARY | 2023-09-25 19:49 | XMS_ITS | Encounter Summary ---
Author Name Unknown [facility] Address [address] [place] [address] Care Team Providers Care Harmonic Analyst Name Role Phone Bola Amor [facility], [facility] Unavailable [phone] Shaan Ramirez MD Unavailable [phone] Luis Ambriz MD Primary Care Provider [phone] MD Unavailable [phone] Nini Patten MD Unavailable [phone] Nini Patten MD Unavailable [phone] Encounter Details Date Type Department Care Team (Latest Contact Info) Description 03/23/2023 MyC Medical Advice [facility] Endocrinology Clinic [address] [address] Nini Patten MD [address] [place] [address] Diabetes mellitus, type 2 (H) (Primary Dx) Social History Tobacco Use [...] Description 10/16/2023 10:00 AM CDT Virtual Visit [facility] Rheumatology Clinic [address] [phone] Adria Cisneros MD [address] [place] [address] [phone] Margaret Reyes, [facility] 11/09/2023 9:00 AM CDT Virtual Visit [facility] Rheumatology Clinic [address] [phone] Adria Cisneros MD [address] [place] [address] 707705 01/14/2024 10:00 AM CDT Office Visit [facility] Eye [address] 9 Ar Clin 9A [place] [phone] Shaan Ramirez MD [address] [place] [address] 343205 documented as of this encounter Visit Diagnoses Diagnosis Diabetes mellitus, type 2 (H)- Primary Type II or unspecified type diabetes mellitus without mention of complication, not stated as uncontrolled documented in this encounter Additional Health Concerns Assessment Noted Time PHQ-9 Depression Total Score: 4 12/25/19 23 2:25 PM CDT documented as of this encounter Care Teams Harmonic Analyst Relationship Specialty Start Date End Date Luis Ambriz MD [address] [place] [address] PCP - General Family Medicine 02/16/22 Bola Amor, COUNTY MANAGER, [facility] [address] [address] Assigned Behavioral Health Provider 12/04/21 Shaan Ramirez MD [address] [place] [address] 832415 Assigned Surgical Provider 12/04/[address] MD [address] [place] [address] Assigned Rheumatology Provider 02/25/22 Nini Patten MD [address] [place] [address] [phone] Endocrinology, Diabetes, and Metabolism 08/29/22 Nini Patten MD [address] [place] [address] 702765 Assigned Endocrinology Provider 01/20/23 documented as of this encounter
--- OUTSIDE RECORDS SUMMARY | 2023-09-25 19:49 | XMS_ITS | Encounter Summary ---
Author Name Unknown Organization [place] Address [address] [place] [address] 21937 Care Team Providers Care Inspector Integrated Circuits Name Role Phone Bola Amor [facility], [facility] Unavailable [phone] Shaan Ramirez MD Unavailable [phone] Luis Ambriz MD Primary Care Provider [phone] MD Unavailable [phone] Nini Patten MD Unavailable [phone] Nini Patten MD Unavailable [phone] Reason for Visit * Reason Onset Date Comments Diabetes 05/08/2023 Glucose data nee ded for 05/10/23 virtual visit Encounter Details Date Type Department Care Team (Late st Contact Info) Description 05/08/2023 Telephone [facility] Endocrinology Clinic [address] [address] Nini Patten MD [address] [place] [address] Diabetes (Glucose data needed for 05/10/23 virtual visit) Social History Tobacco Use Types Packs/Day Years [...] encounter Miscellaneous Notes * Telephone Encounter - Ely Adam MA - 05/09/2023 11:22 AM CDT Attempted to reach patient for upcoming appointment; 14 days of glucose data needed. No answer, LM on VM to call office back. Appointment with Nini Patten MD on 05/10/23. Ely Adam MA * Telephone Encounter - Ely Adam MA - 05/08/2023 3:08 PM CDT Attempted to reach patient for upcoming appointment; 14 days of glucose data needed. No answer, LM on VM to call office back. Appointment with Nini Patten MD on 05/10/23 Ely Adam MA documented in this encounter Plan of Treatment Upcoming Encounters Date Type Department Care Team (Late st Contact Info) Description 10/16/2023 10:00 AM CDT Virtual Visit [facility] Rheumatology Clinic [address] [phone] Adria Cisneros MD [address] [place] [address] 556805 Margaret Reyes, [facility] 11/09/2023 9:00 AM CDT Virtual Visit [facility] Rheumatology Clinic [address] [phone] Adria Cisneros MD [address] [place] [address] 523195 01/14/2024 10:00 AM CDT Office Visit [facility] Eye Clinic - [address] [address] Shaan Ramirez MD [address] [place] [address] documented as of this encounter Visit Diagnoses Not on filedocumented in this encounter Additional Health Concerns Assessment Noted Time PHQ-9 Depression Total Score: 4 12/25/19 23 2:25 PM CDT documented as of this encounter Care Teams Inspector Integrated Circuits Relationship Specialty Start Date End Date Luis Ambriz MD [address] [place] [address] PCP - General Family Medicine 02/16/22 Bola Amor, [facility], [facility] [address] [place] [address]753 Assigned Behavioral Health Provider 12/04/21 Shaan Ramirez MD [address] [place] [address] 48657 Assigned Surgical Provider 12/04/[address] MD [address] [place] [address] Assigned Rheumatology Provider 02/25/22 Nini Patten MD [address] [place] [address] Endocrinology, Diabetes, and Metabolism 08/29/22 Nini Patten MD [address] [place] [address] 40[address] Assigned Endocrinology Provider 01/20/23 documented as of this encounter
--- OUTSIDE RECORDS SUMMARY | 2023-09-25 19:49 | XMS_ITS | Encounter Summary ---
Author Name Unknown Organization [place] Address [address] [place] [address] Care Team Providers Care Log Getter Name Role Phone ZuleymaBola [facility], [facility] Unavailable [phone] Shaan Ramirez MD Unavailable [phone] Luis Ambriz MD Primary Care Provider [phone] MD Unavailable [phone] Nini Patten MD Unavailable [phone] Nini Patten MD Unavailable [phone] Margaret Reyes [facility] Unavailable Unavailable Encounter Details Date Type Department Care Team (Late st Contact Info) Description 05/02/2023 MyC Medical Advice [facility] [address] [phone] [facility] Social History Tobacco Use Types Packs/Day Years Used Date Smoking Tobacco: Never Smokeless Tobacco: Never PHQ-2 Answer Date Recorded PHQ-2 Score 1 01/26/2023 Adolescent Education Answer Date Record ed Getting [...] CDT Virtual Visit [facility] [address] [phone] Adria Cisneros MD [address] [place] [address] [phone] Eric Margaret M, [facility] 11/09/2023 9:00 AM CDT Virtual Visit [facility] [place] [address] [place] [phone] Adria Cisneros MD [address] [place] [address] 01/14/2024 10:00 AM CDT Office Visit [facility] [address] 9 N[address] Clin [address] [place] [phone] Shaan Ramirez MD [address] [place] [address] [phone] documented as of this encounter Visit Diagnoses Not on filedocumented in this encounter Additional Health Concerns Assessment Noted Time PHQ-9 Depression Total Score: 4 12/25/19 23 2:25 PM CDT documented as of this encounter Care Teams Log Getter Relationship Specialty Start Date End Date Luis Ambriz MD [address] [place] [address] [id number] PCP - General Family Medicine 02/16/22 Bola Amro, TOBACCO BALER, [facility] [address] [place] [address] [place] [address] Assigned Behavioral Health Provider 12/04/21 Shaan Ramirez MD [address] [place] [address] Assigned Surgical Provider 12/04/[address] MD [address] [place] [address] Assigned Rheumatology Provider 02/25/22 Nini Patten MD [address] [place] [address] Endocrinology, Diabetes, and Metabolism 08/29/22 Nini Patten MD [address] [place] [address] Assigned Endocrinology Provider 01/20/23 Margaret Reyes [facility] Pharmacist 08/10/23 documented as of this encounter
--- OUTSIDE RECORDS SUMMARY | 2023-09-25 19:49 | XMS_ITS | Encounter Summary ---
Author Name Unknown Organization [place] Address [address] [place] [address] Care Team Providers Care Manufacturing Engineering Technologist Name Role Phone Bola Amor [facility], [facility] Unavailable [phone] Shaan Ramirez MD Unavailable [phone] Luis Ambriz MD Primary Care Provider [phone] MD Unavailable [phone] Nini Patten MD Unavailable [phone] Nini Patten MD Unavailable [phone] Margaret Reyes [facility] Unavailable Unavailable Encounter Details Date Type Department Care Team (Late st Contact Info) Description 04/10/2023 Jacqueline Naranjo [facility] [address] [phone] Nini Patten MD [address] [place] [address] Social History Tobacco Use Types Packs/Day [...] Description 10/16/2023 10:00 AM CDT Virtual Visit [facility] [address] [phone] Adria Cisneros MD [address] [place] [address] [phone] Margaret Reyes, [facility] 11/09/2023 9:00 AM CDT Virtual Visit [facility] Rheumatology [address] [phone] Adria Cisneros MD [address] [place] [address] [phone] 01/14/2024 10:00 AM CDT Office Visit [facility] Clinic [address] 9[address] Clin 9A [place] [phone] Shaan Ramirez MD [address] [place] [address] [phone] documented as of this encounter Visit Diagnoses Not on filedocumented in this encounter Additional Health Concerns Assessment Noted Time PHQ-9 Depression Total Score: 4 12/25/19 23 2:25 PM CDT documented as of this encounter Care Teams Manufacturing Engineering Technologist Relationship Specialty Start Date End Date Luis Ambriz MD [address] [place] [address] [phone] PCP - General Family Medicine 02/16/22 Bola Amor, KENNEL HAND, [facility] [address] [facility] [address] [facility] [address] [place] [address] Assigned Behavioral Health Provider 12/04/21 Shaan Ramirez MD [address] [place] [address] Assigned Surgical Provider 12/04/[address] MD [address] [place] [address] Assigned Rheumatology Provider 02/25/22 Nini Patten MD [address] [place] [address] Endocrinology, Diabetes, and Metabolism 08/29/22 Nini Patten MD [address] [place] [address] Assigned Endocrinology Provider 01/20/23 Margaret Reyes, [facility] Pharmacist 08/10/23 documented as of this encounter
--- OUTSIDE RECORDS SUMMARY | 2023-09-25 19:49 | XMS_ITS | Encounter Summary ---
Author Name Unknown Organization [place] Address [address] [place] [address] Care Team Providers Care Shipping Lead Person Name Role Phone Bola Amor [facility], [facility] Unavailable [phone] Shaan Ramirez MD Unavailable [phone] Luis Ambriz MD Primary Care Provider [phone] MD Unavailable [phone] Nini Patten MD Unavailable [phone] Nini Patten MD Unavailable [phone] Encounter Details Date Type Department Care Team (Latest Contact Info) Description 02/01/2023 Travel Social History Tobacco Use Types Packs/Day [...] suspected to have Coronavirus/COVID-19? No / Unsure 02/01/2023 8:06 PM CDT documented as of this encounter Plan of Treatment Upcoming Encounters Date Type Department Care Team (Late st Contact Info) Description 10/16/2023 10:00 AM CDT Virtual Visit [facility] Rhe[facility] Clinic [address] [phone] Adria Cisneros MD [address] [place] [address] Margaret Reyes, [facility] 11/09/2023 9:00 AM CDT Virtual Visit [facility] Clinic [address] [phone] Adria Cisneros MD [address] [place] [address] [phone] 01/14/2024 10:00 AM CDT Office Visit [facility] Eye [address] [address] Shaan Ramirez MD [address] [place] [address] [phone] documented as of this encounter Visit Diagnoses Not on filedocumented in this encounter Additional Health Concerns Assessment Noted Time PHQ-9 Depression Total Score: 4 12/25/19 23 2:25 PM CDT documented as of this encounter Care Teams Shipping Lead Person Relationship Specialty Start Date End Date Luis Ambriz MD [address] [place] [address] PCP - General Family Medicine 02/16/22 Bola Amor, BUTTON RECLAIMER, [facility] [address] [place] [address] Assigned Behavioral Health Provider 12/04/21 Shaan Ramirez MD [address] [place] [address] 763645 Assigned Surgical Provider 12/04/[address] MD [address] [place] [address] 537145 Assigned Rheumatology Provider 02/25/22 Nini Patten MD [address] [place] [address] Endocrinology, Diabetes, and Metabolism 08/29/22 Nini Patten MD [address] [place], [place] [phone] Assigned Endocrinology Provider 01/20/23 documented as of this encounter
--- OUTSIDE RECORDS SUMMARY | 2023-09-25 19:49 | XMS_ITS | Encounter Summary ---
Author Name Unknown Organization [place] Address [address] [place] [address] Care Team Providers Care Assurance Senior Manager Insurance Name Role Phone Bola Amor [facility], [facility] Unavailable [phone] Shaan Jon MD Unavailable [phone] Luis Ambriz MD Primary Care Provider [phone] MD Unavailable [phone] Nini Patten MD Unavailable [phone] Nini Patten MD Unavailable [phone] Reason for Visit * Reason Comments RECHECK Encounter Details Date Type Department Care Team (Late st Contact Info) Description 01/26/2023 8:00 AM CDT Virtual Visit [facility] Rhe[facility]ology Clinic [address] [phone] MD [address] [place] [address] High risk medication use (Primary Dx); Intermediate uveitis of both eyes; Hidradenitis suppurativa; Psoriasis Social History Tobacco Use Types Packs/Day Years [...] AM CDT documented as of this encounter Last Filed Vital Signs Vital Sign Reading Time Taken Comments Blood Pressure - - Pulse - - Temperature - - Respiratory Rate - - Oxygen Saturation - - Inhaled Oxygen Concentration - - Weight 120.2 kg (265 lb) 01/26/2023 7:48 AM CDT Height 167.6 cm (5' 6) 01/26/2023 7:48 AM CDT Body Mass Index 42.77 01/26/2023 7:48 AM CDT documented in this encounter Progress Notes * Richmond Lane MD - 01/26/2023 8:00 AM CDT Virtual Visit Details Type of service: Video Visit Joined the call at 01/26/2023, 7:52:20 am. Left the call at 01/26/2023, 8:14:49 am. You were on the call for 22 minutes 29 seconds . Originating Location (pt. Location): Home Distant Location (provider location): On-site Platform used for Video Visit: [facility] Outpatient Rheumatology Follow-up This visit was conducted via synchronous video visit due to the current COVID-19 crisis to reduce patient risk. Verbal consent was obtained and is documented below. Name: Amelia Sr Today's date: 01/26/23 Date of initial consultation: 02/03/2022 Reason for follow-up: High risk medication management/ recurrent inflammatory eye disease Requesting physician: Shaan Jon MD Assessment & Plan: #persistent/recurrent uveitis/iritis/cystoid macular edema #high risk medication use: humira and methotrexate 47 year old female with a history of recurrent/persistent iritis/intermediate uveitis, and cystoid macular edema who follows closely with Dr Jon of ophthalmology. 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 None was identified att hat time and again today by history/exam [...] SI joints on the iliac aspect caudally. Since her last visit with me she saw her director of entertainment and both humira and methotrexate were discontinued with the potential plan to start hormone replacement therapy for multiple indications for herHS and hirsutism. She is currently on topical rinvoq. Concern that this approach will not provide co verage for her persistent/recurrent inflammatory eye disease. She has been having some more ocular symptoms since she has discontinued the above systemic convention and biologic DMARD therapies. She has an upcoming appointment with Dr Jon on 02/02 which will guide whether or not we need to restart them. PLAN January 26, 2023 1) not currently on any systemic immunosuppression, since at least october 2022 2) has appointment with Dr Jon on 02/02. If evidence of active uveitis/iritis, we discussed today that our plan will be to restart methotrexate. She is agreeable. Suspect that this may likely be the case given her symptoms of evolving floaters and flashers. She is going to send me a mychartmessage FYI after she sees Dr Jon, I will review the encounter/labs and give her a call and start methotrexate if appropriate (ie if Dr jon sees active inflammation on his exam). Will help with her cutaneous psoriasis/HS as well). We did discuss the use of other conventional DMARDs, however she tolerated methotrexate without noticeable side effects/does not drink etc and so will likely return to it as long as LFTs normal on lab check on 02/02. 3) she will have labs done at [facility] at either 8AM on 02/02 or at 1030 on 02/02 (around her appointment with Dr jon), to ensure LFT normalization. 4) I will follow-up with her in 3 months time 5) she will continue topical rinvoq to external and internal ear psoriatic lesions BID. 6) She will make follow-up appointment with Dr Lomeli to discuss starting hormone therapy for HS and facial hair, combined indication Richmond Lane MD Rheumatology I spent a total of 25 minutes on the date of service on chart review, patient video encounter, line ordering clinician, documentation. Subjective: Interval History January 26, 2023 -saw Dr Jon on 10/27/22. Was off of humira and [...] Interval history 08/11/2022 - Amelia saw Dr. Jon on 06/20/2022 at the time reported a few floaters which were stable. Also some flashing lights on and off while driving. Dr. Jon assessment that day was that her intermediate uveitis was quiet. No cystoid macular edema bilaterally. At overall her ocular inflammation was well controlled on this regimen. -interval soft tissue skin infection for right ear is the second time that this is happened. She required IV antibiotics followed by an oral treatment course. Given the recurrent infections there wasa question raised by Dr. Jon given lack of ocular inflammation on her [...] CONCERTA 54 MG CR tablet diclofenac (VOLTAREN) 1 % topical gel diclofenac (VOLTAREN) 50 MG EC tablet diclofenac (VOLTAREN) 50 MG EC tablet folic acid (FOLVITE) 1 MG tablet HUMIRA *CF* PEN 40 MG/0.4ML pen kit ibuprofen (ADVIL/MOTRIN) 200 MG tablet levofloxacin (LEVAQUIN) 750 MG tablet losartan (COZAAR) 25 MG tablet metFORMIN (GLUCOPHAGE-XR) 500 MG 24 hr tablet methotrexate 2.5 MG tablet metoprolol succinate ER (TOPROL-XL) 50 MG 24 hr tablet minocycline (MINOCIN) 100 MG capsule prednisoLONE acetate (PRED FORTE) 1 % ophthalmic suspension rosuvastatin (CRESTOR) 10 MG tablet Ruxolitinib Phosphate (OPZELURA EX) semaglutide (OZEMPIC) 2 MG/3ML pen spironolactone (ALDACTONE) 50 MG tablet venlafaxine (EFFEXOR-XR) 150 MG 24 hr capsule No current facility-administered medications for this visit. Allergies Allergies Allergen Reactions Hydrocodone-Acetaminophen Hives and Itching Lavandula Latifolia Cough and Other (See Comments) Lavender Oil Cough Family History: mother with MS, dx 4 years before she . Started with optic neuritis. 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 Never drug user. Rare ETOH use. with one son. Objective: Physical exam: No vitals for this video visit. No facial rash, some erythema about the ears Sclera appear clear by crude video exam Labs: WBC Count Date Value Ref Range Status 03/20/2022 10.8 4.0 - 11.0 10e3/uL Final Hemoglobin Date Value Ref Range Status 03/20/2022 14.3 11.7 - 15.7 g/dL Final Platelet Count Date Value Ref Range Status 03/20/2022 321 150 - 450 10e3/uL Final Creatinine Date Value Ref Range Status 03/20/2022 1.02 0.52 - 1.04 mg/dL Final Lab Results Component Value Date ALKPHOS 56 03/20/2022 AST Date Value Ref Range Status 03/20/2022 22 0 - 45 U/L Final Lab Results Component Value Date ALT 49 03/20/2022 Erythrocyte Sedimentation Rate Date Value Ref Range Status 03/20/2022 7 0 - 20 mm/hr Final CRP Inflammation Date Value Ref Range Status 03/20/2022 <2.9 0.0 - 8.0 mg/L Final UA RESULTS: No results for input(s): COLOR, APPEARANCE, URINEGLC, URINEBILI, URINEKETONE, SG, UBLD, URINEPH, PROTEIN, UROBILINOGEN, NITRITE, LEUKEST, RBCU, WBCU in the last [id number] hours. No results found for: ANAIGG, ANAP1, [...] documented in this encounter Nursing Notes * Kel Sharma - 01/26/2023 8:00 AM CDT Is the patient currently in the state of [place]? YES Visit mode:VIDEO If the visit is dropped, the patient can be reconnected by: VIDEO VISIT: Text to cell phone: [phone] Will anyone else be joining the visit? NO How would you like to obtain your AVS? MyChart Are changes needed to the allergy or medication list? NO Reason for visit: RECHECK Patient declined individual allergy and medication review by fire support specialist because patient denies any changes since echeck-in completion and states all information entered during echeck-in remains accurate. Edith Begum VF documented in this encounter Plan of Treatment Upcoming Encounters Date Type Department Care Team (Late st Contact Info) Description 10/16/2023 10:00 AM CDT Virtual Visit [facility] Rheumatology Clinic [address] [phone] Adria Cisneros MD [address] [place] [address] [phone] Margaret Reyes, [facility] 11/09/2023 9:00 AM CDT Virtual Visit [facility] Rheumatology Clinic [address] [phone] Adria Cisneros MD [address] [place] [address] [phone] 01/14/2024 10:00 AM CDT Office Visit [facility] Eye [facility] - [address] Clin [address] [place] [phone] Shaan Jon MD [address] [place] [address] [phone] documented as of this encounter Results * Comprehensive metabolic panel (02/02/2023 11:45 AM CDT) [facility] [address] Sodium 137 136 - 145 mmol/L 02/02/2023 12:17 PM CDT [facility] Potassium 4.2 3.4 - 5.3 mmol/L 02/02/2023 12:17 PM CDT [facility] Chloride 102 98 - 107 mmol/L 02/02/2023 12:17 PM CDT [facility] Carbon Dioxide (CO2) 24 22 - 29 mmol/L 02/02/2023 12:17 PM CDT [facility] Anion Gap 11 7 - 15 mmol/L 02/02/2023 12:17 PM CDT [facility] Urea Nitrogen 11.2 6.0 - 20.0 mg/dL 02/02/2023 12:17 PM CDT [facility] Creatinine 0.92 0.51 - 0.95 mg/dL 02/02/2023 12:17 PM CDT [facility] Calcium 10.0 8.6 - 10.0 mg/dL 02/02/2023 12:17 PM CDT [facility] Glucose 95 70 - 99 mg/dL 02/02/2023 12:17 PM CDT [facility] Alkaline Phosphatase 90 35 - 104 U/L 02/02/2023 12:17 PM CDT [facility] AST 34 0 - 45 U/L 02/02/2023 12:17 PM CDT [facility] Comment:Reference intervals for this test were updated on 01/15/2023 to more accurately reflect our healthy population. There may be differences in the flagging of prior results with similar values performed with this method. Interpretation of those prior results can be made in the context of the updated reference intervals. ALT 49 0 - 50 U/L 02/02/2023 12:17 PM CDT [facility] Comment:Reference intervals for [...] - 8.3 g/dL 02/02/2023 12:17 PM CDT [facility] Albumin 4.5 3.5 - 5.2 g/dL 02/02/2023 12:17 PM CDT [facility] Bilirubin Total 0.8 <=1.2 mg/dL 02/02/2023 12:17 PM CDT [facility] GFR Estimate 78 >60 mL/min/1. 73m2 02/02/2023 12:17 PM CDT [facility] Blood STRUCTURE OF LEFT HAND / Unknown Venipuncture / Unknown 02/02/2023 11:45 AM CDT 02/02/2023 11:[address] MD LAB - BLOOD [place] Performing Organization Address City/[facility]/ZIP Co de Phone Number [facility] - [address] 1st [place] [address] * CRP inflammation (02/02/2023 11:45 AM CDT) CRP Inflammation <3.00 <5.00 mg/L 02/03/20 12:17 PM CDT [facility] Blood STRUCTURE OF LEFT HAND / Unknown Venipuncture / Unknown 02/02/2023 11:45 AM CDT 02/02/2023 11:[address] MD LAB - BLOOD [place] Performing Organization Address City/[facility]/ZIP Co de Phone Number [facility] [address] 1st [place] [address] * Erythrocyte sedimentation rate auto (02/02/2023 11:45 AM CDT) Erythrocyte Sedimentation Rate 10 0 - 20 mm/hr 02/02/2023 12:05 PM CDT [facility] Blood STRUCTURE OF LEFT HAND / Unknown Venipuncture / Unknown 02/02/2023 11:45 AM CDT 02/02/2023 11:[address] MD LAB - BLOOD [place] [facility] - [address] 1st [place] [address] documented in this encounter Visit Diagnoses Diagnosis High risk medication use- Primary Encounter for long-term (current) use of other medications Intermediate uveitis of both eyes Hidradenitis suppurativa Hidradenitis Psoriasis Other psoriasis documented in this encounter Additional Health Concerns Assessment Noted Time PHQ-9 Depression Total Score: 4 12/25/19 23 2:25 PM CDT documented as of this encounter Care Teams Assurance Senior Manager Insurance Relationship Specialty Start Date End Date Luis Ambriz MD [address] [place] [address]69 PCP - General Family Medicine 02/16/22 Bola Amor, [facility], [facility] [address] [place] [address] Assigned Behavioral Health Provider 12/04/21 Shaan Jon MD [address] [place] [address]356 Assigned Surgical Provider 12/04/[address] MD [address] [place] [address] 114[address] Assigned Rheumatology Provider 02/25/22 Nini Patten MD [address] [place] [address] Endocrinology, Diabetes, and Metabolism 08/29/22 Nini Patten MD [address] [place] [address] Assigned Endocrinology Provider 01/20/23 documented as of this encounter
--- OUTSIDE RECORDS SUMMARY | 2023-09-25 19:49 | XMS_ITS | Encounter Summary ---
Author Name Unknown Organization [place] Address [address] [place] [address] Care Team Providers Care Welding Machine Operator Arc Name Role Phone Bola Amor [facility], [facility] Unavailable + [phone] Shaan Ramirez MD Unavailable [phone] Luis Ambriz MD Primary Care Provider [phone] MD Unavailable [phone] Nini Patten MD Unavailable [phone] Reason for Visit * Reason Onset Date Comments Follow Up 01/15/2023 Encounter Details Date Type Department Care Team (Late st Contact Info) Description 01/15/[address] [facility] Endocrinology Clinic [address] [phone] Nini Patten MD [address] [place] [address] Follow Up Social History Tobacco Use Types Packs/Day Years [...] encounter Miscellaneous Notes * Telephone Encounter - Priscila Olvera - 01/15/2023 12:45 PM CDT LVM for patient to make a 3 month virtual follow up with Dr. Patten documented in this encounter Plan of Treatment Upcoming Encounters Date Type Department Care Team (Late st Contact Info) Description 10/16/2023 10:00 AM CDT Virtual Visit [facility] Rheumatology Clinic [address] [phone] Adria Cisneros MD [address] [place] [address] [phone] Margaret Reyes, [facility] 11/09/2023 9:00 AM CDT Virtual Visit [facility] Rheumatology Clinic [address] [phone] Adria Cisneros MD [address] [place] [address] [phone] 01/14/2024 10:00 AM CDT Office Visit [facility] Eye Clinic - [address] [place] [address] Shaan Ramirez MD [address] [place] [address] documented as of this encounter Visit Diagnoses Not on filedocumented in this encounter Additional Health Concerns Assessment Noted Time PHQ-9 Depression Total Score: 4 12/25/19 23 2:25 PM CDT documented as of this encounter Care Teams Welding Machine Operator Arc Relationship Specialty Start Date End Date Luis Ambriz MD [address] [place] [address] PCP - General Family Medicine 02/16/22 Bola Amor, EMERGENCY MANAGEMENT SPECIALIST, [facility] [address] [phone] Assigned Behavioral Health Provider 12/04/21 Shaan Ramirez MD [address] [place], [place] 059205 Assigned Surgical Provider 12/04/[address] MD [address] [place], [place] [phone] Assigned Rheumatology Provider 02/25/22 Nini Patten MD [address] [place] [address] [phone] Endocrinology, Diabetes, and Metabolism 08/29/22 documented as of this encounter
--- OUTSIDE RECORDS SUMMARY | 2023-09-25 19:50 | XMS_ITS | Encounter Summary ---
Author Name Unknown Organization [place] Address [address] [place] [address] Care Team Providers Care Straw Hat Brim Raiser Operator Name Role Phone Bola Amor [facility], [facility] Unavailable + [phone] Shaan Ramirez MD Unavailable [phone] Luis Ambriz MD Primary Care Provider [phone] MD Unavailable [phone] Nini Patten MD Unavailable [phone] Reason for Visit * Reason Onset Date Comments *-*INCOMING RECORDS*-* 01/15/2023 Encounter Details Date Type Department Care Team (Late st Contact Info) Description 01/15/2023 PRE VISIT [facility] Endocrinology Clinic [address] [phone] Nini Patten MD [address] [place] [address] *-*INCOMING RECORDS*-* Social History Tobacco Use Types Packs/Day Years Used Date Smoking Tobacco: Never Smokeless Tobacco: Never PHQ-2 Answer Date Recorded PHQ-2 Score 3 09/11/2022 Sex and Gender Information Value Date Recorded Sex Assigned at Female 11/23/2021 4:43 PM CDT Gender Identity Female 11/23/2021 4:43 PM CDT Sexual Orientation Bisexual 11/23/2021 4: 43 PM CDT documented as of this encounter Miscellaneous Notes * Telephone Encounter - Leif Piedra - 10/25/2022 10:09 AM CDT RECORDS RECEIVED FROM: internal /ce DATE RECEIVED: 01.15.23 NOTES (FOR ALL VISITS) STATUS DETAILS OFFICE NOTES from referring provider internal Self referred MEDICATION LIST internal IMAGING MRI (BRAIN) internal 12.09.21 LABS DIABETES: HBGA1C, CREATININE, FASTING LIPIDS, MICROALBUMIN URINE, POTASSIUM, TSH, T4 THYROID: TSH, T4, CBC, THYRODLONULIN, TOTAL T3, FREE T4, CALCITONIN, CEA internal /ce Lipid- 1.2.23 HBGA1C- 1.2.23 Cbc- 10.9.22 BMP- 10.9.22 CMP- 8.15.22 POTASSIUM- 3.24.22 CREATININE- 3.24.23 Received labs- 10.27.21 documented in this encounter Plan of Treatment Upcoming Encounters Date Type Department Care Team (Late st Contact Info) Description 10/16/2023 10:00 AM CDT Virtual Visit [facility] Rheumatology Clinic [address] [phone] Adria Cisneros MD [address] [place] [address] [phone] Margaret Reyes, [facility] 11/09/2023 9:00 AM CDT Virtual Visit [facility] Rheumatology Clinic [address] [phone] Adria Cisneros MD [address] [place] [address] [phone] 01/14/2024 10:00 AM CDT Office Visit [facility] Eye Clinic - [address] Or Clin [address] [place] [phone] Shaan Ramirez MD [address] [place] [address] documented as of this encounter Visit Diagnoses Not on filedocumented in this encounter Additional Health Concerns Assessment Noted Time PHQ-9 Depression Total Score: 4 12/25/19 23 2:25 PM CDT documented as of this encounter Care Teams Straw Hat Brim Raiser Operator Relationship Specialty Start Date End Date Luis Ambriz MD [address] [place] [address] PCP - General Family Medicine 02/16/22 Bola Amor, [facility], [facility] [address] [place] [address] Assigned Behavioral Health Provider 12/04/21 Shaan Ramirez MD [address] [place] [address] Assigned Surgical Provider 12/04/[address] MD [address] [place] [address] Assigned Rheumatology Provider 02/25/22 Nini Patten MD [address] [place] [address] Endocrinology, Diabetes, and Metabolism 08/29/22 documented as of this encounter
--- OUTSIDE RECORDS SUMMARY | 2023-09-25 19:50 | XMS_ITS | Encounter Summary ---
Author Name Unknown Organization [place] Address [address] [place] [address] Care Team Providers Care Grades 7 8 Tutor Name Role Phone Bola Amor [facility] Unavailable [phone] Shaan Ramirez MD Unavailable [phone] Luis Ambriz MD Primary Care Provider [phone] MD Unavailable [phone] Nini Patten MD Unavailable [phone] Nini Patten MD Unavailable [phone] Margaret Reyes [facility] Unavailable Unavailable Encounter Details Date Type Department Care Team (Late Contact Info) Description 12/22/2021 [facility] [address] [phone] [facility] Social History Tobacco Use Types Packs/Day Years Used Date Smoking Tobacco: Never Smokeless Tobacco: Never PHQ-2 Answer Date Recorded PHQ-2 Score 4 12/07/2021 Sex and Gender Information Value Date Recorded Sex Assigned at Female 11/23/2021 4:43 PM CDT Gender Identity Female 11/23/2021 4:43 PM CDT Sexual Orientation Bisexual 11/23/2021 4: 43 PM CDT COVID-19 Exposure Response Date Recorded In the last 10 days, have yo u been in contact with someone who was confirmed or suspected to have Coronavirus/COVID-19? No / Unsure 12/24/2021 9:23 PM CDT documented as of this encounter Plan of Treatment Upcoming Encounters Date Type Department Care Team (Late st Contact Info) Description 10/16/2023 10:00 AM CDT Virtual Visit [facility] Rheumatology Clinic [address] [phone] Adria Cisneros MD [address] [place] [address] Margaret Reyes, [facility] 11/09/2023 9:00 AM CDT Virtual Visit [facility] Rheumatology Clinic [address] [phone] Adria Cisneros MD [address] [place] [address] 01/14/2024 10:00 AM CDT Office Visit [facility] Eye [address] [place] [phone] Shaan Ramirez MD [address] [place] [address] 289805 documented as of this encounter Visit Diagnoses Not on filedocumented in this encounter Additional Health Concerns Assessment Noted Time PHQ-9 Depression Total Score: 10 022 12:04 PM CDT documented as of this encounter Care Teams Grades 7 8 Tutor Relationship Specialty Start Date End Date Luis Ambriz MD [address] [place] [address]487 PCP - General Family Medicine 02/16/22 Bola Amor, INDOOR LANDSCAPER/GARDENER, [facility] [address] [phone] Assigned Behavioral Health Provider 12/04/21 Shaan Ramirez MD [address] [place] [address] [phone] Assigned Surgical Provider 12/04/[address] MD [address] [place] [address] [phone] Assigned Rheumatology Provider 02/25/22 Nini Patten MD [address] [place] [address] [phone] Endocrinology, Diabetes, and Metabolism 08/29/22 Nini Patten MD [address] [place] [address] [phone] Assigned Endocrinology Provider 01/20/23 Margaret Reyes, [facility] Pharmacist 08/10/23 documented as of this encounter
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
--- OUTSIDE RECORDS SUMMARY | 2023-09-25 19:50 | XMS_ITS | Encounter Summary ---
Author Name Unknown Organization [place] Address [address] [place] [address] Care Team Providers Care Shop Repairer Name Role Phone ZuleymaBola [facility], [facility] Unavailable + [phone] Shaan Ramirez MD Unavailable [phone] Luis Ambriz MD Primary Care Provider [phone] MD Unavailable [phone] Nini Patten MD Unavailable [phone] Encounter Details Date Type Department Care Team (Latest Contact Info) Description 10/27/2022 Travel Social History Tobacco Use Types Packs/Day Years Used Date Smoking Tobacco: Never Smokeless Tobacco: Never PHQ-2 Answer Date Recorded PHQ-2 Score 2 10/27/2022 Sex and Gender Information Value Date Recorded Sex Assigned at Female 11/23/2021 4:43 PM CDT Gender Identity Female 11/23/2021 4:43 PM CDT Sexual Orientation Bisexual 11/23/2021 4: 43 PM CDT COVID-19 Exposure Response Date Recorded In the last 10 days, have yo u been in contact with someone who was confirmed or suspected to have Coronavirus/COVID-19? No / Unsure 10/27/2022 8:38 AM CDT documented as of this encounter Plan of Treatment Upcoming Encounters Date Type Department Care Team (Late st Contact Info) Description 10/16/2023 10:00 AM CDT Virtual Visit [facility] Rheumatology Clinic [address] [phone] Adria Cisneros MD [address] [place] [address] Margaret Reyes, [facility] 11/09/2023 9:00 AM CDT Virtual Visit [facility] Rheumatology Clinic [place] 9[address] [place] [phone] Adria Cisneros MD 515 [facility] 88 [place], [place] [address] 01/14/2024 10:00 AM CDT Office Visit [facility] Eye [facility] 516 [facility] 9 Fl Clin 9A [place] [phone] Shaan Ramirez MD [address] [place] [address]005 documented as of this encounter Visit Diagnoses Not on filedocumented in this encounter Additional Health Concerns Assessment Noted Time PHQ-9 Depression Total Score: 10 023 9:59 AM MUSIC 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 Care Teams Shop Repairer Relationship Specialty Start Date End Date Luis Ambriz MD [address] [place] [address] 433305 PCP - General Family Medicine 02/16/22 Bola Amor, BIOGEOGRAPHER, [facility] [address] [facility] 180 [place] [address] Assigned Behavioral Health Provider 12/04/21 Shaan Ramirez MD [address] [place] [address] [phone] Assigned Surgical Provider 12/04/[address] MD 420 [place], [place] 176235 Assigned Rheumatology Provider 02/25/22 Nini Patten MD 9 [place] [address] Endocrinology, Diabetes, and Metabolism 08/29/22 documented as of this encounter
--- OUTSIDE RECORDS SUMMARY | 2023-09-25 19:50 | XMS_ITS | Encounter Summary ---
Author Name Unknown Organization [place] Address [facility]0 [place] [address] Care Team Providers Care Religion Department Chair Name Role Phone ZuleymaBola [facility], [facility] Unavailable + [phone] Shaan Ramirez MD Unavailable [phone] Luis Ambriz MD Primary Care Provider [phone] MD Unavailable [phone] Nini Patten MD Unavailable [phone] Nini Patten MD Unavailable [phone] Margaret Reyes [facility] Unavailable Unavailable Encounter Details Date Type Department Care Team (Late st Contact Info) Description 12/30/2021 External Order Results [facility] [address] [place] [phone] Outside, Provider High risk medication use Social History Tobacco Use Types Packs/Day Years Used Date Smoking Tobacco: Never Smokeless Tobacco: Never PHQ-2 Answer Date Recorded PHQ-2 Score 2 12/27/2021 Sex and Gender Information Value Date Recorded Sex Assigned at Female 11/23/2021 4:43 PM CDT Gender Identity Female 11/23/2021 4:43 PM CDT Sexual Orientation Bisexual 11/23/2021 4: 43 PM CDT COVID-19 Exposure Response Date Recorded In the last 10 days, have yo u been in contact with someone who was confirmed or suspected to have Coronavirus/COVID-19? No / Unsure 12/27/2021 9:14 AM CDT documented as of this encounter Plan of Treatment Upcoming Encounters Date Type Department Care Team (Late st Contact Info) Description 10/16/2023 10:00 AM CDT Virtual Visit [facility] Rheumatology Clinic [address] [phone] Adria Cisneros MD [address] [place] [address] [phone] Margaret Reyes, [facility] 11/09/2023 9:00 AM CDT Virtual Visit [facility] Rheumatology Clinic [address] [phone] Adria Cisneros MD [address] [place] [address]32605 01/14/2024 10:00 AM CDT Office Visit [facility] Eye [address] 9 Mt Clin 9A [place] [address] Shaan Ramirez MD [address] [place] [address] documented as of this encounter Procedures Procedure Name Priority Date/Time Associated Diagnosis Comments HIV ANTIGEN ANTIBODY COMBO Routine 12/30/2021 9:15 AM CDT CBC WITH PLATELETS & DIFFERENTIAL Routine 12/30/2021 9:15 AM CDT High risk medication use EXTERNAL LAB RESULTS Routine 12/30/2021 9:15 AM CDT HEPATITIS C ANTIBODY Routine 12/30/2021 9:15 AM CDT HEPATITIS B SURFACE ANTIGEN Routine 12/30/2021 9:15 AM CDT COMPREHENSIVE METABOLIC PANEL Routine 12/30/2021 9:15 AM CDT High risk medication use documented in this encounter Results * External Lab Results (12/30/2021 9:15 AM CDT) Scan Lab Results (External) See Scanned Report NON-INTERFACE D (ONBASE SCANS) Comment:Thiopurine Methyltra nsferase, RBC 12/30/2021 9:15 AM CDT Narrative [facility] PFT - 01/06/2022 1:27 PM CDT Verified by Chetan Puga on 01/06/2022. Provider Outside LABORATORY Performing Organization Address City/[facility]/ZIP Co de Phone Number [facility] NON-INTERFACED (ONBASE SCANS) * HIV Antigen Antibody Combo (12/30/2021 9:15 AM CDT) HIV 1&2 Antibody (External) NEGATIVE NEGATIVE NON-INTERFACE D (ONBASE SCANS) Blood 12/30/2021 9:15 AM CDT Narrative [facility] PFT - 01/06/2022 1:23 PM CDT Verified by Chetan Puga on 01/06/2022. Provider Outside LAB - BLOOD ORDERABL ES Performing Organization Address [facility] Co de Phone Number [facility] PFT NON-INTERFACED (ONBASE SCANS) * Hepatitis B surface antigen (12/30/2021 9:15 AM CDT) Hep B Surface Agn (External) NEGATIVE NEGATIVE NON-INTERFACE D (ONBASE SCANS) Blood 12/30/2021 9:15 AM CDT Narrative [facility] PFT - 12/30/2021 3:39 PM CDT Verified by Deangelo Carlson on 12/30/2021. Provider Outside LAB - BLOOD ORDERABL ES Performing Organization Address City/[facility] Co de Phone Number [facility] PFT NON-INTERFACED (ONBASE SCANS) * Hepatitis C antibody (12/30/2021 9:15 AM CDT) Hepatitis C Antibody (External) NEGATIVE NEGATIVE NON-INTERFACE D (ONBASE SCANS) Blood 12/30/2021 9:15 AM CDT Narrative [facility] PFT - 12/30/2021 3:39 PM CDT Verified by Deangelo Carlson on 12/30/2021. Provider Outside LAB - BLOOD ORDERABL ES [facility] [place] NON-INTERFACED (ONBASE SCANS) * (ABNORMAL) Comprehensive metabolic panel (12/30/2021 9:15 AM CDT) ALT (External) 35 4 - 35 U/L NON- INTERFACE D (ONBASE SCANS) AST (External) 28 12 - 35 U/L NON-INTERFACE D (ONBASE SCANS) Alk Phosphatase (External) 71 40 - 150 U/L NON-INTERFACE D (ONBASE SCANS) Bilirubin Total (External) 1.0 0.1 - 1.5 mg/dL NON-INTERFACE D (ONBASE SCANS) Albumin (External) 4.3 3.3 - 5.0 g/dL NON-INTERFACE D (ONBASE SCANS) Protein Total (External) 7.2 6.0 - 8.3 g/dL NON-INTERFACE D (ONBASE SCANS) Calcium (External) 9.0 8.4 - 10.6 mg/dL NON-INTERFACE D (ONBASE SCANS) Urea Nitrogen (External) 21 5 - 24 mg/dL NON-INTERFACE D (ONBASE SCANS) Creatinine (External) 1.0 0.5 - 1.5 mg/dL NON-INTERFACE D (ONBASE SCANS) Glucose (External) 142(H) 60 - 115 mg/dL NON-INTERFACE D (ONBASE SCANS) Sodium (External) 137 135 - 149 mmol/L NON-INTERFACE D (ONBASE SCANS) Potassium (External) 4.6 3.6 - 5.1 mmol/L NON-INTERFACE D (ONBASE SCANS) Chloride (External) 98 96 - 114 mmol/L NON-INTERFACE D (ONBASE SCANS) CO2 (External) 29 20 - 32 mmol/L NON-INTERFACE D (ONBASE SCANS) Blood 12/30/2021 9:15 AM CDT Calli MCKAY PFT - 12/30/2021 3:39 PM CDT Verified by Deangelo Carlson on 12/30/2021. Shaan Ramirez MD LAB - BLOOD ORD ERABLES [facility] NON-INTERFACED (ONBASE SCANS) * (ABNORMAL) CBC with Platelets & Differential (12/30/2021 9:15 AM CDT) WBC Count (External) 6.97 5.00 - 10.00 K/UL NON-INTERFACE D (ONBASE SCANS) RBC Count (External) 4.55 3.90 - 5.03 M/ul NON-INTERFACE D (ONBASE SCANS) Hemoglobin (External) 14.1 12.0 - 15.5 GM/DL NON-INTERFACE D (ONBASE SCANS) Hematocrit (External) 42.9 34.9 - 44.5 % NON-INTERFACE D (ONBASE SCANS) MCV (External) 94 82 - 98 FL NON- INTERFACE D (ONBASE SCANS) MCH (External) 31 27 - 34 PG NON- INTERFACE D (ONBASE SCANS) MCHC (External) 33 32 - 36 GM/DL NON-INTERFACE D (ONBASE SCANS) Platelet Count (External) 298 150 - 450 K/UL NON-INTERFACE D (ONBASE SCANS) % Neutrophils (External) 67.5 50.0 - 70.0 % NON-INTERFACE D (ONBASE SCANS) % Lymphocytes (External) 27.0 25.0 - 45.0 % NON-INTERFACE D (ONBASE SCANS) % Monocytes (External) 3.6 0.0 - 11.0 % NON-INTERFACE D (ONBASE SCANS) % Eosinophils (External) 1.1 0.0 - 7.0 % NON-INTERFACE D (ONBASE SCANS) % Basophils (External) 0.7 0.0 - 3.0 % NON-INTERFACE D (ONBASE SCANS) Absolute Neutrophils (External) 4.70 1.70 - 7.00 K/UL NON-INTERFACE D (ONBASE SCANS) Absolute Lymphocytes (External) 1.88 0.90 - 2.90 K/UL NON-INTERFACE D (ONBASE SCANS) Absolute Monocytes (External) 0.25(L) 0.30 - 0.90 K/UL NON-INTERFACE D (ONBASE SCANS) Absolute Eosinophils (External) 0.08 0.00 - 0.50 K/UL NON-INTERFACE D (ONBASE SCANS) Absolute Basophils (External) 0.05 0.00 - 0.20 K/UL NON-INTERFACE D (ONBASE SCANS) RDW (External) 11.7 11.5 - 15.3 % NON-INTERFACE D (ONBASE SCANS) % Immature Granulocytes (External) 0.1 % NON-INTERFACE D (ONBASE SCANS) Absolute Immature Granulocytes (External) 0.01 K/uL NON-INTERFACE D (ONBASE SCANS) Blood 12/30/2021 9:15 AM CDT Narrative [facility] PFT - 12/30/2021 3:39 PM CDT Verified by Deangelo Carlson on 12/30/2021. Shaan Ramirez MD LAB - BLOOD ORD ERABLES [facility] P[facility] NON-INTERFACED (ONBASE SCANS) documented in this encounter Visit Diagnoses Diagnosis High risk medication use Encounter for long-term (current) use of other medications documented in this encounter Additional Health Concerns Assessment Noted Time PHQ-9 Depression Total Score: 10 022 12:04 PM CDT documented as of this encounter Care Teams Religion Department Chair Relationship Specialty Start Date End Date Luis Ambriz MD [address] [place] [address] PCP - General Family Medicine 02/16/22 Bola Amor, FIRE BEHAVIOR ANALYST, [facility] [address] [address] Assigned Behavioral Health Provider 12/04/21 Shaan Ramirez MD [address] [place] [address] [phone] Assigned Surgical Provider 12/04/[address] MD [address] [place] [address] 852465 Assigned Rheumatology Provider 02/25/22 Nini Patten MD 9[address] [place] [address] MD Endocrinology, Diabetes, and Metabolism 08/29/22 Nini Patten MD 7 [place], [place] 829735 Assigned Endocrinology Provider 01/20/23 Margaret Reyes RPH Pharmacist 08/10/23 documented as of this encounter
--- OUTSIDE RECORDS SUMMARY | 2023-09-25 19:50 | XMS_ITS | Encounter Summary ---
Author Name Unknown Organization [place] Address [address] [place] [address] Care Team Providers Care Machine Printer Hose Name Role Phone Bola Amor [facility], [facility] Unavailable [phone] Shaan Ramirez MD Unavailable [phone] Luis Ambriz MD Primary Care Provider [phone] MD Unavailable [phone] Nini Patten MD Unavailable [phone] Nini Patten MD Unavailable [phone] Margaret Reyes [facility] Unavailable Unavailable Encounter Details Date Type Department Care Team (Late st Contact Info) Description 09/13/2022 [facility] Natasha Naranjo [facility] Rheumatology Clinic [address] [phone] MD [address] [place] [address] Social History Tobacco Use Types [...] encounter Miscellaneous Notes * Telephone Encounter - Jayla Elise RN - 09/14/2022 11:[address] has reviewed the patient's update. He would like to have patient see him in apprx 12weeks for follow up; plan to restart her medication therapy after the extended course regime of anbx. Patient has accepted the video visit offered on Sunday, 12/01 at 10A Jayla Elise RN Rheumatology Clinic LER ASSEMBLER * Telephone Encounter - Jayla Elise RN - 09/13/2022 2:37 PM CSTSummary: patient update on culture results Spoke to patient regarding her MyC message update about staph infection. Reporting she saw feeder switchboard operator, Dr. Francisca Lomeli at [facility] d/t recurrent skin infections. This visit included a nasal swab/culture of her nares. Patient has included a copy of the visit note and will upload the culture results later today whichpatient reports was positive for Staph infection. Technician Plant And Maintenance is recommending extensive antbx regime. Patient verifies she 1-is not taking methotrexate 2-will recheck her labs on 09/25 3--stopped humira apprx 6 wks ago on her own thinking it was causing her repeated infections. Message update to Dr. Lane. LER ASSEMBLER documented in this encounter Plan of Treatment Upcoming Encounters Date Type Department Care Team (Late st Contact Info) Description 10/16/2023 10:00 AM CDT Virtual Visit [facility] Rheumatology Clinic [address] [phone] Adria Cisneros MD [address] [place] [address] [phone] Margaret Reyes, [facility] 11/09/2023 9:00 AM CDT Virtual Visit [facility] Rheumatology [address] [phone] Adria Cisneros MD 515 [facility] 88 [place] [address] 01/14/2024 10:00 AM CDT Office Visit [facility] Eye Clinic - [facility] 516 [facility] 9th Fl Clin 9A [place] [address] Shaan Ramirez MD 516 [place] [address] documented as of this encounter Visit Diagnoses Not on filedocumented in this encounter Additional Health Concerns Assessment Noted Time PHQ-9 Depression Total Score: 10 023 9:59 AM TRAILER ASSEMBLER documented as of this encounter Care Teams Machine Printer Hose Relationship Specialty Start Date End Date Luis Ambriz MD [address] [place] [address] PCP - General Family Medicine 02/16/22 Bola Amor, BUSINESS PROCESS REPRESENTATIVE, [facility] [address] [facility] 180 [place], [place] 133305 Assigned Behavioral Health Provider 12/04/21 Shaan Ramirez MD [address] [place] [address] [phone] Assigned Surgical Provider 12/04/[address] MD 420 [place] [address] Assigned Rheumatology Provider 02/25/22 Nini Patten MD [address] [place] [address] Endocrinology, Diabetes, and Metabolism 08/29/22 Nini Patten MD 9 [place] [address] Assigned Endocrinology Provider 01/20/23 Margaret Reyes [facility] Pharmacist 08/10/23 documented as of this encounter
--- OUTSIDE RECORDS SUMMARY | 2023-09-25 19:50 | XMS_ITS | Encounter Summary ---
Author Name Unknown Organization [place] Address [address] [place] [address] Care Team Providers Care Building Surveyor Name Role Phone Bola Amor WORK STUDY STUDENT, [facility] Unavailable + [phone] Shaan Ramirez MD Unavailable [phone] Luis Ambriz MD Primary Care Provider [phone] MD Unavailable [phone] Nini Patten MD Unavailable [phone] Encounter Details Date Type Department Care Team (Late st Contact Info) Description 12/19/2022 [facility] Rheumatology Clinic [address] [phone] MD [address] [place] [address] Social History Tobacco Use Types Packs/Day Years Used Date Smoking Tobacco: Never Smokeless Tobacco: Never PHQ-2 Answer Date Recorded PHQ-2 Score 3 10/30/2022 Sex and Gender Information Value Date Recorded Sex Assigned at Female 11/23/2021 4:43 PM CDT Gender Identity Female 11/23/2021 4:43 PM CDT Sexual Orientation Bisexual 11/23/2021 4: 43 PM CDT documented as of this encounter Miscellaneous Notes * Telephone Encounter - Lynn Khan - 12/19/2022 12:48 PM CDT LVM x2 for the patient to call back and reschedule the following: Appointment type: Video Return Provider: Dr. Stanley Date: 03/23/2023 at 1:30 pm Specialty phone number: [phone] Additional appointment(s) needed: Additonal Notes: documented in this encounter Plan of Treatment Upcoming Encounters Date Type Department Care Team (Late st Contact Info) Description 10/16/2023 10:00 AM CDT Virtual Visit [facility] Rheumatology Clinic [address] [phone] Adria Cisneros MD [address] [place] [phone] Margaret Reyes, [facility] 11/09/2023 9:00 AM CDT Virtual Visit [facility] Rheumatology [address] [phone] Adria Cisneros MD [address] [place] [address]24305 01/14/2024 10:00 AM CDT Office Visit [facility] Eye Clinic [address] 9 Vt Clin 9A [place] [address] Shaan Ramirez MD [address] [place] [address] documented as of this encounter Visit Diagnoses Not on filedocumented in this encounter Additional Health Concerns Assessment Noted Time PHQ-9 Depression Total Score: 6 10/31/19 23 9:36 AM CDT documented as of this encounter Care Teams Building Surveyor Relationship Specialty Start Date End Date Luis Ambriz MD [address] [place] [address] PCP - General Family Medicine 02/16/22 Bola Amor, WORK STUDY STUDENT, [facility] [address] [address] Assigned Behavioral Health Provider 12/04/21 Shaan Ramirez MD [address] [place] [address] Assigned Surgical Provider 12/04/[address] MD [address] [place] [address] [phone] Assigned Rheumatology Provider 02/25/22 Nini Patten MD [address] [place] [address] 167125 Endocrinology, Diabetes, and Metabolism 08/29/22 documented as of this encounter
--- OUTSIDE RECORDS SUMMARY | 2023-09-25 19:50 | XMS_ITS | Encounter Summary ---
Author Name Unknown Organization [place] Address [address] [place] [address] Care Team Providers Care Junior Assistant Manager Name Role Phone ZuleymaBola [facility], [facility] Unavailable [phone] Shaan Ramirez MD Unavailable [phone] Luis Ambriz MD Primary Care Provider [phone] MD Unavailable [phone] Nini Patten MD Unavailable [phone] Nini Patten MD Unavailable [phone] Reason for Visit * Reason Onset Date Comments Refill Request 04/11/2022 methotrexate 2.5 MG tablet Encounter Details Date Type Department Care Team (Late st Contact Info) Description 04/11/2022 Refill [facility] Eye [address] Clin 9A [place] [address] Shaan Ramirez MD [address] [place] [address] Refill Request (methotrexate 2.5 MG tablet ) Social History Tobacco Use Types Packs/Day Years [...] encounter Miscellaneous Notes * Telephone Encounter - Karel Gregg RN - 04/11/2022 11:35 AM CDT Note to Dr. Ramirez for review/signing off on Methotrexate Rx Pt last seen 03-20-2022 Karel Gregg RN 11:35 AM 04/11/22 * Telephone Encounter - Ximena Cornell RN - [...] Cornell RN Central Triage Red Flags/Med Refills * Telephone Encounter - Emily Lim LPN - 04/11/2022 8:33 AM CDT Images from the original note were not included. documented in this encounter Plan of Treatment Upcoming Encounters Date Type Department Care Team (Late st Contact Info) Description 10/16/2023 10:00 AM CDT Virtual Visit [facility] Rheumatology Clinic [address] [phone] Adria Cisneros MD [address] [place] [address] [phone] Margaret Reyes, [facility] 11/09/2023 9:00 AM CDT Virtual Visit [facility] Rheumatology Clinic [address] [phone] Adria Cisneros MD [address] [place] [address] 01/14/2024 10:00 AM CDT Office Visit [facility] Eye Clinic - [address] [place] Clin 9A [place] [address] Shaan Ramirez MD [address] [place] [address] 558955 documented as of this encounter Visit Diagnoses Diagnosis Intermediate uveitis of both eyes documented in this encounter Additional Health Concerns Assessment Noted Time PHQ-9 Depression Total Score: 4 03/27/ 22 9:21 AM CDT documented as of this encounter Care Teams Junior Assistant Manager Relationship Specialty Start Date End Date Luis Ambriz MD [address] [place] [address] PCP - General Family Medicine 02/16/22 Bola Amor, DRIVEWAY SEALER, [facility] [address] [facility] [address] [address] Assigned Behavioral Health Provider 12/04/21 Shaan Ramirez MD [address] [place] [address] Assigned Surgical Provider 12/04/[address] MD [address] [place] [address] Assigned Rheumatology Provider 02/25/22 Nini Patten MD [address] [place] [address] Endocrinology, Diabetes, and Metabolism 08/29/22 Nini Patten MD [address] [place] [address] Assigned Endocrinology Provider 01/20/23 documented as of this encounter
--- OUTSIDE RECORDS SUMMARY | 2023-09-25 19:50 | XMS_ITS | Encounter Summary ---
Author Name Unknown Organization [place] Address [address] [place] [address] Care Team Providers Care Placement Manager Name Role Phone ZuleymaBola [facility], [facility] Unavailable + [phone] Shaan Ramirez MD Unavailable [phone] Luis Ambriz MD Primary Care Provider [phone] MD Unavailable [phone] Nini Patten MD Unavailable [phone] Encounter Details Date Type Department Care Team (Latest Contact Info) Description 01/10/2023 Travel Social History Tobacco Use Types Packs/Day Years Used Date Smoking Tobacco: Never Smokeless Tobacco: Never PHQ-2 Answer Date Recorded PHQ-2 Score 1 12/25/2022 Sex and Gender Information Value Date Recorded [...] Description 10/16/2023 10:00 AM CDT Virtual Visit [facility] Rhe[facility]ology [facility] [address] [address] Adria Cisneros MD [address] [place] [address] Margaret Reyes, [facility] 11/09/2023 9:00 AM CDT Virtual Visit [facility] Rhe[facility]ology [facility] [place] [address] [place] [phone] Adria Cisneros MD [address] [facility] [address] [place], [place] 569905 01/14/2024 10:00 AM CDT Office Visit [facility] Eye [facility] [address] [facility] 9 [address] Clin 9A [place] [phone] Shaan Ramirez MD [address] [place] [address] [phone] documented as of this encounter Visit Diagnoses Not on filedocumented in this encounter Additional Health Concerns Assessment Noted Time PHQ-9 Depression Total Score: 4 12/25/19 23 2:25 PM CDT documented as of this encounter Care Teams Placement Manager Relationship Specialty Start Date End Date Luis Ambriz MD [address] [place] [address] [phone] PCP - General Family Medicine 02/16/22 Bola Amor, WIRING INSPECTOR, [facility] [address] [facility] [address] [facility] [address] [place] [address] Assigned Behavioral Health Provider 12/04/21 Shaan Ramirez MD [address] [place] [address] 762505 Assigned Surgical Provider 12/04/[address] MD [address] [place], [place] 219495 Assigned Rheumatology Provider 02/25/22 Nini Patten MD 9 [place] [address] Endocrinology, Diabetes, and Metabolism 08/29/22 documented as of this encounter
--- OUTSIDE RECORDS SUMMARY | 2023-09-25 19:50 | XMS_ITS | Encounter Summary ---
Author Name Unknown Organization [place] Address [address] [place] [address] 117[address] Care Team Providers Care Field Worker Name Role Phone Bola Amor [facility], [facility] Unavailable +[phone] Shaan Ramirez MD Unavailable [phone] Luis Ambriz MD Primary Care Provider [phone] MD Unavailable [phone] Nini Patten MD Unavailable [phone] Nini Patten MD Unavailable [phone] Margaret Reyes [facility] Unavailable Unavailable Encounter Details Date Type Department Care Team (Late st Contact Info) Description 02/24/2022 Jacqueline Naranjo [facility] Rheumatology Clinic [address] [address] MD [address] [place] [address] Social History Tobacco Use Types Packs/Day Years Used Date Smoking Tobacco: Never Smokeless Tobacco: Never PHQ-2 Answer Date Recorded PHQ-2 Score 1 02/02/2022 Sex and Gender Information Value Date Recorded Sex Assigned at Female 11/23/2021 4:43 PM CDT Gender Identity Female 11/23/2021 4:43 PM CDT Sexual Orientation Bisexual 11/23/2021 4: 43 PM CDT COVID-19 Exposure Response Date Recorded In the last 10 days, have yo u been in contact with someone who was confirmed or suspected to have Coronavirus/COVID-19? Unable to assess 02/16/2022 1:12 PM CDT documented as of this encounter Plan of Treatment Upcoming Encounters Date Type Department Care Team (Late st Contact Info) Description 10/16/2023 10:00 AM CDT Virtual Visit [facility] Rheumatology Clinic [address] [phone] Adria Cisneros MD [address] [place] [address] [phone] Margaret Reyes, [facility] 11/09/2023 9:00 AM CDT Virtual Visit [facility] Rheumatology Clinic [address] [phone] Adria Cisneros MD [address] [place] [address] 01/14/2024 10:00 AM CDT Office Visit [facility] Eye Clinic [address] 9th Fl Clin 9A [place] [phone] Shaan Ramirez MD [address] [place] [address] 986155 documented as of this encounter Visit Diagnoses Not on filedocumented in this encounter Additional Health Concerns Assessment Noted Time PHQ-9 Depression Total Score: 6 02/03/20 22 9:26 AM CDT documented as of this encounter Care Teams Field Worker Relationship Specialty Start Date End Date Luis Ambriz MD [address] [place] [address] 825105 PCP - General Family Medicine 02/16/22 Bola Amor, ED TEACHER, [facility] [address] [facility] 180 [place] [address] Assigned Behavioral Health Provider 12/04/21 Shaan Ramirez MD 516 [place] [address] Assigned Surgical Provider 12/04/[address] MD [address] [place] [address] Assigned Rheumatology Provider 02/25/22 Nini Patten MD 909 [place] [address] Endocrinology, Diabetes, and Metabolism 08/29/22 Nini Patten MD 909 [place] [address] Assigned Endocrinology Provider 01/20/23 Margaret Reyes, [facility] Pharmacist 08/10/23 documented as of this encounter
--- OUTSIDE RECORDS SUMMARY | 2023-09-25 19:50 | XMS_ITS | Encounter Summary ---
Author Name Unknown Organization [place] Address [address] [place] [address] Care Team Providers Care Security Assurance Analyst Name Role Phone ZuleymaBola [facility], [facility] Unavailable +[phone] Shaan Ramirez MD Unavailable [phone] Luis Ambriz MD Primary Care Provider [phone] MD Unavailable [phone] Nini Patten MD Unavailable [phone] Nini Patten MD Unavailable [phone] Margaret Reyes [facility] Unavailable Unavailable Encounter Details Date Type Department Care Team (Late st Contact Info) Description 01/07/2022 Jacqueline [facility] Eye [address] 9th [address] Clin 9A [place] [address] Shaan Ramirez MD [address] [place] [address] [phone] Intermediate uveitis of both eyes (Primary Dx) Social History Tobacco Use Types Packs/Day Years Used Date Smoking Tobacco: Never Smokeless Tobacco: Never PHQ-2 Answer Date Recorded PHQ-2 Score 4 01/05/2022 Sex and Gender Information Value Date Recorded [...] Description 10/16/2023 10:00 AM CDT Virtual Visit [facility] Rheumatology Clinic [address] [phone] Adria Cisneros MD [address] [place] [address] [phone] Margaret Reyes, [facility] 11/09/2023 9:00 AM CDT Virtual Visit [facility] Rheumatology Clinic [address] [phone] Adria Cisneros MD [address] [place] [address] 704345 01/14/2024 10:00 AM CDT Office Visit [facility] Eye Clinic - [facility] [address] [facility] [address] Clin 9A [place] [phone] Shaan Ramirez MD [address] [place] [address] 055495 documented as of this encounter Visit Diagnoses Diagnosis Intermediate uveitis of both eyes- Primary documented in this encounter Additional Health Concerns Assessment Noted Time PHQ-9 Depression Total Score: 7 01/05/20 22 12:23 PM CDT documented as of this encounter Care Teams Security Assurance Analyst Relationship Specialty Start Date End Date Luis Ambriz MD [address] [place] [address] [phone] PCP - General Family Medicine 02/16/22 Bola Amor, OVERHEAD CLEANER, [facility] [address] [facility] [address] 048605 Assigned Behavioral Health Provider 12/04/21 Shaan Ramirez MD 516 [place], [place] 466285 Assigned Surgical Provider 12/04/[address] MD 420 [place], [place] 027915 Assigned Rheumatology Provider 02/25/22 Nini Patten MD [address] [place], [place] 4276[address] Endocrinology, Diabetes, and Metabolism 08/29/22 Nini Patten MD [address] [place], [place] 507865 Assigned Endocrinology Provider 01/20/23 Margaret Reyes [facility] Pharmacist 08/10/23 documented as of this encounter
--- OUTSIDE RECORDS SUMMARY | 2023-09-25 19:50 | XMS_ITS | Encounter Summary ---
Author Name Unknown Organization [place] Address [address] [place] [address] Care Team Providers Care Shipping Team Leader Name Role Phone Bola Amor [facility], [facility] Unavailable [phone] Shaan Ramirez MD Unavailable [phone] Luis Ambriz MD Primary Care Provider [phone] MD Unavailable [phone] Nini Patten MD Unavailable [phone] Nini Patten MD Unavailable [phone] Margaret Reyes [facility] Unavailable Unavailable Encounter Details Date Type Department Care Team (Late st Contact Info) Description 05/17/[address] [facility] Rheumatology Clinic [address] [phone] MD [address] [place] [address] Social History Tobacco Use Types Packs/Day Years Used Date Smoking Tobacco: Never Smokeless Tobacco: Never PHQ-2 Answer Date Recorded PHQ-2 Score 2 03/27/2022 Sex and Gender Information Value Date Recorded Sex Assigned at Female 11/23/2021 4:43 PM CDT Gender Identity Female 11/23/2021 4:43 PM CDT Sexual Orientation Bisexual 11/23/2021 4: 43 PM CDT COVID-19 Exposure Response Date Recorded In the last 10 days, have yo u been in contact with someone who was confirmed or suspected to have Coronavirus/COVID-19? No / Unsure 05/07/2022 5:46 AM CDT documented as of this encounter Miscellaneous Notes * Telephone Encounter - [place] E[place]en - 05/17/2022 11:50 AM CDT Pt was contacted; Pt states she might of made a mistake and thought she had an appointment this month with Dr. Lane. Pt states so far she is not having any issue will keep her August [address]. Per Dr. Lane's last visit note with the Pt; Pt should follow up in 6 months (around 08/06/22). documented in this encounter Plan of Treatment Upcoming Encounters Date Type Department Care Team (Late st Contact Info) Description 10/16/2023 10:00 AM CDT Virtual Visit [facility] Rheumatology Clinic [address] [phone] Adria Cisneros MD [address] [place] [address] [phone] Margaret Reyes, [facility] 11/09/2023 9:00 AM CDT Virtual Visit [facility] Rheumatology Clinic [address] [phone] Adria Cisneros MD [address] [place] [address] 747305 01/14/2024 10:00 AM CDT Office Visit [facility] Eye Clinic - [address] [address] Shaan Ramirez MD [address] [place] [address] documented as of this encounter Visit Diagnoses Not on filedocumented in this encounter Additional Health Concerns Assessment Noted Time PHQ-9 Depression Total Score: 4 03/27/20 22 9:21 AM CDT documented as of this encounter Care Teams Shipping Team Leader Relationship Specialty Start Date End Date Luis Ambriz MD [address] [place] [address] PCP - General Family Medicine 02/16/22 Bola Amor, CUSTOMER SUPPLY COORDINATOR, [facility] [address] [place] [address] Assigned Behavioral Health Provider 12/04/21 Shaan Ramirez MD [address] [place] [address] 49067 Assigned Surgical Provider 12/04/[address] MD [address] [place] [address] 257625 Assigned Rheumatology Provider 02/25/22 Nini Patten MD [address] [place] [address] 439815 Endocrinology, Diabetes, and Metabolism 08/29/22 Nini Patten MD [address] [place] [address] 359455 Assigned Endocrinology Provider 01/20/23 Margaret Reyes [facility] Pharmacist 08/10/23 documented as of this encounter
--- OUTSIDE RECORDS SUMMARY | 2023-09-25 19:50 | XMS_ITS | Encounter Summary ---
Author Name Unknown Organization [place] Address [address] [place] [address] Care Team Providers Care Division Engineer Name Role Phone ZuleymaBola [facility], [facility] Unavailable [phone] Shaan Ramirez MD Unavailable [phone] Luis Ambriz MD Primary Care Provider [phone] MD Unavailable [phone] Nini Patten MD Unavailable [phone] Nini Patten MD Unavailable [phone] [facility] Unavailable Unavailable Encounter Details Date Type Department Care Team (Late st Contact Info) Description 02/02/2022 MyC Medical Advice [facility] Virtual Care [address] [place] [phone] [facility] Social History Tobacco Use Types Packs/Day Years [...] Virtual Visit [facility] Rheumatology Clinic [address] [phone] Adria Cisneros MD [address] [place] [address] Margaret Reyes, [facility] 11/09/2023 9:00 AM CDT Virtual Visit [facility] Rheumatology Clinic [address] [phone] Adria Cisneros MD [address] [place] [address] 01/14/2024 10:00 AM CDT Office Visit [facility] Eye [facility] [address] [facility] 9 [facility] 9A [place] [address] Shaan Ramirez MD [address] [place] [address] [phone] documented as of this encounter Visit Diagnoses Not on filedocumented in this encounter Additional Health Concerns Assessment Noted Time PHQ-9 Depression Total Score: 6 02/03/20 22 9:26 AM CDT documented as of this encounter Care Teams Division Engineer Relationship Specialty Start Date End Date Luis Ambriz MD [address] [place] [address] PCP - General Family Medicine 02/16/22 Bola Amor, TISSUE TECHNOLOGIST, [facility] [address] [place] [address] Assigned Behavioral Health Provider 12/04/21 Shaan Ramirez MD [address] [place] [address] 898865 Assigned Surgical Provider 12/04/[address] MD [address] [place] [address] 643355 Assigned Rheumatology Provider 02/25/22 Nini Patten MD [address] [place] [address] Endocrinology, Diabetes, and Metabolism 08/29/22 Nini Patten MD [address] [place] [address] Assigned Endocrinology Provider 01/20/[address] [facility] Pharmacist 08/10/23 documented as of this encounter
--- OUTSIDE RECORDS SUMMARY | 2023-09-25 19:50 | XMS_ITS | Encounter Summary ---
Author Name Unknown Organization [place] Address [address] [place] [address]51 Care Team Providers Care Stock Broker Supervisor Name Role Phone ZuleymaBola [facility], [facility] Unavailable [phone] Shaan Ramirez MD Unavailable [phone] Luis Ambriz MD Primary Care Provider [phone] MD Unavailable [phone] Nini Patten MD Unavailable [phone] Nini Patten MD Unavailable [phone] Margaret Reyes [facility] Unavailable Unavailable Encounter Details Date Type Department Care Team (Late st Contact Info) Description 01/04/2023 MyC Medical Advice [facility] Endocrinology Clinic [address] [phone] Rika Adler CMA Social History Tobacco Use Types Packs/Day Years [...] Visit [facility] Rheumatology Clinic [address] [phone] Adria Cisneros MD [address] [place] [address] Margaret Reyes, [facility] 11/09/2023 9:00 AM CDT Virtual Visit [facility] Rheumatology Clinic [address] [address] Adria Cisneros MD [address] [place] [address] 582805 01/14/2024 10:00 AM CDT Office Visit [facility] Eye [address] [address] Shaan Ramirez MD [address] [place] [address] [phone] documented as of this encounter Visit Diagnoses Not on filedocumented in this encounter Additional Health Concerns Assessment Noted Time PHQ-9 Depression Total Score: 4 12/25/19 23 2:25 PM CDT documented as of this encounter Care Teams Stock Broker Supervisor Relationship Specialty Start Date End Date Luis Ambriz MD [address] [place] [address] PCP - General Family Medicine 02/16/22 Bola Amor, DIMENSION QUARRY SUPERVISOR, [facility] [address] [place] [address] Assigned Behavioral Health Provider 12/04/21 Shaan Ramirez MD [address] [place] [address] 477865 Assigned Surgical Provider 12/04/[address] MD [address] [place] [address] 196505 Assigned Rheumatology Provider 02/25/22 Nini Patten MD [address] [place] [address] Endocrinology, Diabetes, and Metabolism 08/29/22 Nini Patten MD 9 [place] [address] Assigned Endocrinology Provider 01/20/23 Margaret Reyes RP Pharmacist 08/10/23 documented as of this encounter
--- OUTSIDE RECORDS SUMMARY | 2023-09-25 19:50 | XMS_ITS | Encounter Summary ---
Author Name Unknown Organization [place] Address [address] [place] [address]85 Care Team Providers Care Mission Manager Name Role Phone ZuleymaBola [facility], [facility] Unavailable [phone] Shaan Ramirez MD Unavailable [phone] Luis Ambriz MD Primary Care Provider [phone] MD Unavailable [phone] Nini Patten MD Unavailable [phone] Nini Patten MD Unavailable [phone] Margaret Reyes [facility] Unavailable Unavailable Encounter Details Date Type Department Care Team (Late st Contact Info) Description 09/26/2022 MyC Medical Advice [facility] Rheumatology Clinic [address] [phone] MD [address] [place] [address] Social History Tobacco Use Types [...] Description 10/16/2023 10:00 AM CDT Virtual Visit [facility] Rheumatology Clinic [address] [phone] Adria Cisneros MD [address] [place] [address] [phone] Margaret Reyes, [facility] 11/09/2023 9:00 AM CDT Virtual Visit [facility] Rheumatology Clinic [address] [phone] Adria Cisneros MD [address] [place] [address] 144115 01/14/2024 10:00 AM CDT Office Visit [facility] Eye [address] 9 [address] [facility] 9A [place] [phone] Shaan Ramirez MD [address] [place] [address] documented as of this encounter Visit Diagnoses Not on filedocumented in this encounter Additional Health Concerns Assessment Noted Time PHQ-9 Depression Total Score: 10 023 9:59 AM CONTINUITY PERSON documented as of this encounter Care Teams Mission Manager Relationship Specialty Start Date End Date Luis Ambriz MD [address] [place] [address] 18403 PCP - General Family Medicine 02/16/22 Bola Amor, WIRE LATHER, [facility] [address] [facility] [address] [place] [address] Assigned Behavioral Health Provider 12/04/21 Shaan Ramirez MD [address] [place] [address] 23249 Assigned Surgical Provider 12/04/[address] MD [address] [place], [place] 427745 Assigned Rheumatology Provider 02/25/22 Nini Patten MD [address] [place], [place] [phone] Endocrinology, Diabetes, and Metabolism 08/29/22 Nini Patten MD [address] [place], [place] 819515 Assigned Endocrinology Provider 01/20/23 Margaret Reyes [facility] Pharmacist 08/10/23 documented as of this encounter
--- OUTSIDE RECORDS SUMMARY | 2023-09-25 19:50 | XMS_ITS | Encounter Summary ---
Author Name Unknown Organization [place] Address [address] [place] [address] Care Team Providers Care Vertical Roll Operator Name Role Phone ZuleymaBola [facility], [facility] Unavailable [phone] Shaan Ramirez MD Unavailable [phone] Luis Ambriz MD Primary Care Provider Richmond Lane MD Unavailable [phone] Nini Patten MD Unavailable [phone] Reason for Visit * Reason Comments Uveitis Follow-Up Intermediate uveitis of both eyes Encounter Details Date Type Department Care Team (Late st Contact Info) Description 10/27/2022 9:00 AM CDT Office Visit [facility] Eye [address] 9[facility] [address] [place] [address] Shaan Ramirez MD [address] [place] [address] Intermediate uveitis of both eyes (Primary Dx); Cystoid macular edema of both eyes; Recurrent iritis, bilateral; High risk medication use Social History Tobacco [...] * Patient Instructions* Shaan Ramirez MD - 10/27/2022 9:00 AM CDT Let's restart a course of steroid drops (prednisolone) 2x/day in each eye to help prevent flare. Ifthe symptoms of flashing become more frequent or if you have more blurriness/pain/redness, let me know. We would probably try more frequent drops first and if that did not help, potentially a course of oral steroid (if off antibiotics) Regarding Humira, if Dr. Lomeli decides it may be best to use the testosterone rosibel instead of Humira, we may consider more methotrexate. Regarding methotrexate, could consider taking perhaps higher dose ( up to 20 mg or 8 pills) which could help eyes if off Humira. We will defer to Dr. Lane documented in this encounter Progress Notes * Shaan Ramirez MD - 10/27/2022 9:00 AM CDT Chief Complaint/Presenting Concern: Uveitis follow up Interval History of Present Ocular Illness: Amelia Sr is a 47 year old patient who returns for follow up of her intermediate uveitis. At last visit we considered reducing Humira frequency but this was kept at weekly from Dermatology. They recommended continued use of methotrexate 6 pills (15 mg weekly). There have been some changes related to medications given other health issues as below when both Methotrexate and Humira had to be held for a few weeks. Today, Amelia reports no pain, no blurriness, just some flashing lights. Interval Updates to Medical/Family/Social History: 1. Being treated for cellulitis of outer ear. Initially tried one course of antibiotics which did not help, but now doing well on current course. Has been roughly 5 weeks off Humira and Methotrexate and plans to resume methotrexate in 6 weeks. Dermatology may not restart Humira, but possibly a testosterone rosibel. Relevant Review of Systems Updates: Ear infection improving. Some hiddranetitis symptoms but not too bad Current eye related medications: Levaquin, off Humira and Methotrexate for the last 5 weeks, no drops. Retina/Uveitis Imaging: OCT Spectralis Macula October 27, 2022 right eye: Normal contour, no fluid. Stable mild choroidal thickening. No NFL thickening, no PP fluid. left eye: Normal contour, no fluid. Stable mild choroidal thickening. No NFL thickening, no PP fluid. Optos FA October 27, 2022 right eye: Improved small vessel leakage peripherally, no early foveal leakage, late disc leakage left eye: Slightly delayed transit but stable. No early foveal leakage. Late disc leakage. Improvedsmall vessel leakage Assessment: 1. Intermediate uveitis of both eyes No active inflammation, improved angiographic leakage in each eye 2. Cystoid macular edema of both eyes None by OCT nor angiography 3. Recurrent iritis, bilateral Some activity today 4. High risk medication use Now on systemic medication break due to treatment of ear infection. Plan/Recommendations: ??? Discussed findings with patient. There is some activity of the iritis (front of the eye inflammation) but intermediate uveitis is subtle and only active by angiography. This is most likely due tobeing off Humira and Methotrexate to allow body to recover from ear infections. WE will make some interval recommendations as below, but anticipate things will improve. ??? Eye pressure is normal in each eye ??? Recommend additional testing: None specifically at this time ??? Let's restart a course of steroid drops (prednisolone) 2x/day in each eye to help prevent flare. If the symptoms of flashing become more frequent or if you have more blurriness/pain/redness, let me know. We would probably try more frequent drops first and if that did not help, potentially a course of oral steroid (if off antibiotics) ??? Regarding Humira, if Dr. Lomeli decides it may be best to use the testosterone rosibel instead of Humira, we may consider more methotrexate. ??? Regarding methotrexate, could consider taking perhaps higher dose ( up to 20 mg or 8 pills) which could help eyes if off Humira. We will defer to Dr. Lane RT 1. Dr. Lane next month 2. 2nd week January RUCHI brandt Check, then dilate with OCT (ordered) Physician Attestation [...] Shaan Ramirez M.D., Uveitis and Medical Retina, October 27, 2022 documented in this encounter Nursing Notes * ROBIN DODD - 10/27/2022 9:00 AM CDT Chief Complaints and History of Present Illnesses Patient presents with ??? Uveitis Follow-Up Intermediate uveitis of both eyes Chief Complaint(s) and History of Present Illness(es) Uveitis Follow-Up Laterality: both eyes Onset: gradual Onset: months ago Associated symptoms: flashes and floaters. Negative for dryness, eye pain and tearing Pain scale: 0/10 Comments: Intermediate uveitis of both eyes Comments Pt notes that she has not been on the medications for a couple months because Dr. Lovell was treating for underlying bacteria that was treating infections. Pt gets white flashing in the corners of her eyes frequently about a few times an hour. Pt states that her vision has been stable for a few months now. DM2 BS: unknown. Pt states her a1c was 5.7 No results found for: A1C ROBIN DODD COA October 27, 2022 9:12 AM documented in this encounter Plan of Treatment Upcoming Encounters Date Type Department Care Team (Late st Contact Info) Description 10/16/2023 10:00 AM CDT Virtual Visit [facility] Rheumatology [address] [address] Adria Cisneros MD [address] [place] [address] Eric Margaret Marcella, [facility] 11/09/2023 9:00 AM CDT Virtual Visit [facility] [place] [address] [place] [address] Adria Cisneros MD [address] [place] [address] 01/14/2024 10:00 AM CDT Office Visit [facility] - [address] [address] Shaan Ramirez MD [address] [place] [address] documented as of this encounter Procedures Procedure Name Priority Date/Time Associated Diagnosis Comments FLUORESCEIN ANGIOGRAPHY OU (BOTH EYES) Routine 10/27/2022 11:18 AM CDT Intermediate uveitis of both eyes OCT RETINA SPECTRALIS OU (BOTH EYE) Routine 10/27/2022 11:18 AM CDT Intermediate uveitis of both eyes documented in this encounter Results * Fluorescein Angiography OU (both eyes) (10/27/2022 11:18 AM CDT) Narrative Shaan Ramirez MD - 10/27/2022 11:18 AM CDT Performed by: wt . Patient cooperation: Reliable . Right Eye Reliability of the test: Good . Test Findings: Abnormal . Interpretation: Retinal Disease . Plan: Adjust medications . Interval: Better . Left Eye Reliability of the test: Good . Test Findings: Abnormal . Interpretation: Retinal Disease . Plan: Adjust medications . Interval: Better . Notes Optos FA October 27, 2022 right eye: Improved small vessel leakage peripherally, no early foveal leakage, late disc leakage left eye: Slightly delayed transit but stable. No early foveal leakage. Late disc leakage. Improved small vessel leakage Shaan Ramirez MD OPHTHALMOLOGY * OCT Retina Spectralis OU (both eyes) (10/27/2022 11:18 AM CDT) Narrative Shaan Ramirez MD - 10/27/2022 11:18 AM CDT Performed by: wt . Patient cooperation: Reliable . Right Eye Reliability of the test: Good . Findings normal/abnormal: Abnormal OCT . Interpretation: Retinal disease . Plan: Monitor . Interval: Same . Left Eye Reliability of the test: Good . Findings normal/abnormal: Abnormal OCT . Interpretation: Retinal disease . Plan: Monitor . Interval: Same . Notes OCT Spectralis Macula October 27, 2022 right eye: Normal contour, no fluid. Stable mild choroidal thickening. No NFL thickening, no PP fluid. left eye: Normal contour, no fluid. Stable mild choroidal thickening. No NFL thickening, no PP fluid. 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, bilateral High risk medication use Encounter for long-term (current) use of other medications documented in this encounter Additional Health Concerns Assessment Noted Time PHQ-9 Depression Total Score: 10 023 9:59 AM PERPETUAL INVENTORY CLERK documented as of this encounter Care Teams Vertical Roll Operator Relationship Specialty Start Date End Date Luis Ambriz MD [address] [place] [address] PCP - General Family Medicine 02/16/22 Bola Amor, SIDING APPLICATOR, [facility] [address] [phone] Assigned Behavioral Health Provider 12/04/21 Shaan Ramirez MD [address] [place] [address] Assigned Surgical Provider 12/04/[address] MD [address] [place] [address] Assigned Rheumatology Provider 02/25/22 Nini Patten MD [address] [place] [address] Endocrinology, Diabetes, and Metabolism 08/29/22 documented as of this encounter
--- OUTSIDE RECORDS SUMMARY | 2023-09-25 19:50 | XMS_ITS | Encounter Summary ---
Author Name Unknown Organization [place] Address [address] [place] [address] Care Team Providers Care Screen Cleaner Name Role Phone ZuleymaBola [facility], [facility] Unavailable [phone] Shaan Ramirez MD Unavailable [phone] Luis Ambriz MD Primary Care Provider [phone] MD Unavailable [phone] Nini Patten MD Unavailable [phone] Nini Patten MD Unavailable [phone] Margaret Reyes [facility] Unavailable Unavailable Reason for Visit * Reason Onset Date Comments Vision Changes Ou 12/21/2021 Encounter Details Date Type Department Care Team (Late st Contact Info) Description 12/21/2021 MyC Medical Advice [facility] Eye [address] 9[facility] [address] [place] [address] Shaan Ramirez MD [address] [place] [address] Vision Changes Ou Social History Tobacco Use Types Packs/Day Years [...] In the last 10 days, have johanne u been in contact with someone who was confirmed or suspected to have Coronavirus/COVID-19? No / Unsure 12/24/2021 9:23 PM CDT documented as of this encounter Miscellaneous Notes * Telephone Encounter - Shaan Ramirez MD - 12/26/2021 8:26 AM CDT This message was routed only Today, December 26, 2021. Will update prednisone 20 mg daily with planned visit tomorrow. documented in this encounter Plan of Treatment Upcoming Encounters Date Type Department Care Team (Late st Contact Info) Description 10/16/2023 10:00 AM CDT Virtual Visit [facility] Rheumatology Clinic [address] [phone] Adria Cisneros MD [address] [place] [address] [phone] Margaret Reyes [facility] 11/09/2023 9:00 AM CDT Virtual Visit [facility] Rheumatology Clinic [address] [phone] Adria Cisneros MD [address] [place] [address] 01/14/2024 10:00 AM CDT Office Visit [facility] - [address] 9[facility] [address] [place] [address] Shaan Ramirez MD [address] [place] [address] documented as of this encounter Visit Diagnoses Diagnosis Intermediate uveitis of both eyes documented in this encounter Additional Health Concerns Assessment Noted Time PHQ-9 Depression Total Score: 10 022 12:04 PM CDT documented as of this encounter Care Teams Screen Cleaner Relationship Specialty Start Date End Date Luis Ambriz MD [address] [place] [address] PCP - General Family Medicine 02/16/22 Bola Amor, MOLD SHOP SUPERVISOR, [facility] [address] [facility] [address] [address] Assigned Behavioral Health Provider 12/04/21 Shaan Ramirez MD [address] [place] [address] 909475 Assigned Surgical Provider 12/04/[address] MD [address] [place] [address] Assigned Rheumatology Provider 02/25/22 Nini Patten MD [address] [place] [address] [phone] Endocrinology, Diabetes, and Metabolism 08/29/22 Nini Patten MD [address] [place] [address] 640655 Assigned Endocrinology Provider 01/20/23 Margaret Reyes, [facility] Pharmacist 08/10/23 documented as of this encounter
--- OUTSIDE RECORDS SUMMARY | 2023-09-25 19:50 | XMS_ITS | Encounter Summary ---
Author Name Unknown Organization [place] Address [address] [place] [address] Care Team Providers Care Certified Addiction Counselor Name Role Phone Bola Amor [facility], [facility] Unavailable [phone] Shaan Ramirez MD Unavailable [phone] Luis Ambriz MD Primary Care Provider [phone] MD Unavailable [phone] Nini Patten MD Unavailable [phone] Nini Patten MD Unavailable [phone] Margaret Reyes [facility] Unavailable Unavailable Reason for Visit * Reason Onset Date Comments Lab Orders 01/11/2023 Fax to [facility] at [phone] Encounter Details Date Type Department Care Team (Late st Contact Info) Description 01/11/2023 Jacqueline Medical Advice [facility] Rheumatology Clinic [address] [address] MD [address] [place] [address] Lab Orders (Fax to [facility] at 50... Social History Tobacco Use Types Packs/Day Years [...] encounter Miscellaneous Notes * Telephone Encounter - Amber Orozco CMA - 01/15/2023 10:41 AM CDT Lab orders have been successfully faxed to [facility] as requested. Confirmed via [employer]fax. Amber Orozco CMA 01/15/2023 10:41 AM documented in this encounter Plan of Treatment Upcoming Encounters Date Type Department Care Team (Late st Contact Info) Description 10/16/2023 10:00 AM CDT Virtual Visit [facility]umatology Clinic [address] [phone] Adria Cisneros MD [address] [place] [address] [phone] Margaret Reyes, [facility] 11/09/2023 9:00 AM CDT Virtual Visit [facility]umatology Clinic [address] [phone] Adria Cisneros MD [address] [place] [address] [phone] 01/14/2024 10:00 AM CDT Office Visit [facility] Eye [facility] - [address] [phone] Shaan Ramirez MD [address] [place] [address] [phone] documented as of this encounter Visit Diagnoses Not on filedocumented in this encounter Additional Health Concerns Assessment Noted Time PHQ-9 Depression Total Score: 4 12/25/19 23 2:25 PM CDT documented as of this encounter Care Teams Certified Addiction Counselor Relationship Specialty Start Date End Date Luis Ambriz MD [address] [place] [address] PCP - General Family Medicine 02/16/22 Bola Amor, METHODS STUDY ANALYST, [facility] [address] [place] [address] Assigned Behavioral Health Provider 12/04/21 Shaan Ramirez MD [address] [place] [address] 12297 Assigned Surgical Provider 12/04/[address] MD [address] [place] [address] Assigned Rheumatology Provider 02/25/22 Nini Patten MD [address] [place] [address] 016625 Endocrinology, Diabetes, and Metabolism 08/29/22 Nini Patten MD [address] [place] [address] 796895 Assigned Endocrinology Provider 01/20/23 Margaret Reyes [facility] Pharmacist 08/10/23 documented as of this encounter
--- OUTSIDE RECORDS SUMMARY | 2023-09-25 19:51 | XMS_ITS | Encounter Summary ---
Author Name Unknown Organization [place] Address [address] [place] [address] Care Team Providers Care Family Practice Md Name Role Phone ZuleymaBola [facility], [facility] Unavailable [phone] Shaan Ramirez MD Unavailable [phone] Luis Ambriz MD Primary Care Provider [phone] MD Unavailable [phone] Nini Patten MD Unavailable [phone] Nini Patten MD Unavailable [phone] Margaret Reyes [facility] Unavailable Unavailable Encounter Details Date Type Department Care Team (Late st Contact Info) Description 11/29/2021 Jacqueline Medical Natasha [facility] Eye [address] [facility] [address] [place] [phone] Shaan Ramirez MD [address] [place] [address] [phone] Social History Tobacco Use Types Packs/Day Years Used Date Smoking Tobacco: Never Smokeless Tobacco: Never PHQ-2 Answer Date Recorded PHQ-2 Total Score (Adult) - Positive if 3 or more points; Administer PHQ-9 if positive 2 11/23/2021 Sex and Gender Information Value Date Recorded Sex Assigned at Female 11/23/2021 4:43 PM CDT Gender Identity Female 11/23/2021 4:43 PM CDT Sexual Orientation Bisexual 11/23/2021 4: 43 PM CDT COVID-19 Exposure Response Date Recorded In the last 10 days, have johanne u been in contact with someone who was confirmed or suspected to have Coronavirus/COVID-19? No / Unsure 11/29/2021 9:23 AM CDT documented as of this encounter Plan of Treatment Upcoming Encounters Date Type Department Care Team (Late st Contact Info) Description 10/16/2023 10:00 AM CDT Virtual Visit [facility] Rheumatology Clinic [address] [phone] Adria Cisneros MD [address] [place] [address] [phone] Margaret Reyes, [facility] 11/09/2023 9:00 AM CDT Virtual Visit [facility] Rheumatology Clinic [address] [phone] Adria Cisneros MD [address] [place] [address] [phone] 01/14/2024 10:00 AM CDT Office Visit [facility] Eye Clinic - [facility] [address] [facility] [address] [facility] [address] [place] [phone] Shaan Ramirez MD [address] [place] [address] 479655 documented as of this encounter Visit Diagnoses Not on filedocumented in this encounter Additional Health Concerns Assessment Noted Time PHQ-9 Depression Total Score: 6 11/25/19 22 7:04 AM CDT documented as of this encounter Care Teams Family Practice Md Relationship Specialty Start Date End Date Luis Ambriz MD [address] [place] [address] [phone] PCP - General Family Medicine 02/16/22 Bola Amor, AIRCRAFT WORKER, [facility] [address] [phone] Assigned Behavioral Health Provider 12/04/21 Shaan Ramirez MD [address] [place], [place] 090895 Assigned Surgical Provider 12/04/[address] MD [address] [place] [address] [phone] Assigned Rheumatology Provider 02/25/22 Nini Patten MD [address] [place] [address] Endocrinology, Diabetes, and Metabolism 08/29/22 Nini Patten MD [address] [place] [address] Assigned Endocrinology Provider 01/20/23 Margaret Reyes [facility] Pharmacist 08/10/23 documented as of this encounter
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
--- OUTSIDE RECORDS SUMMARY | 2023-09-25 19:51 | XMS_ITS | Encounter Summary ---
Author Name Unknown Organization [facility] Address [address] [place] [id number] Care Team Providers Care Manager Testing Name Role Phone [facility]ule[facility], [facility] Unavailable [phone] Shaan Ramirez MD Unavailable [phone] Luis Ambriz MD Primary Care Provider [phone] MD Unavailable [phone] Nini Patten MD Unavailable [phone] Nini Patten MD Unavailable [phone] Margaret Reyes [facility] Unavailable Unavailable Encounter Details Date Type Department Care Team (Late st Contact Info) Description 12/12/2021 [facility] Eye [address] [place] [phone] Shaan Ramirez MD [address] [place] [address] [phone] Social History Tobacco Use Types Packs/Day Years [...] suspected to have Coronavirus/COVID-19? Unable to assess 12/05/2021 4:57 PM CDT documented as of this encounter Plan of Treatment Upcoming Encounters Date Type Department Care Team (Late st Contact Info) Description 10/16/2023 10:00 AM CDT Virtual Visit [facility] [address] [phone] Adria Cisneros MD [address] [place] [address] [phone] Margaret Reyes, [facility] 11/09/2023 9:00 AM CDT Virtual Visit [facility] [address] [phone] Adria Cisneros MD [address] [place] [phone] 01/14/2024 10:00 AM CDT Office Visit [facility] [address] Clin [address] [place] [phone] Shaan Ramirez MD [address] [place] [phone] documented as of this encounter Visit Diagnoses Not on filedocumented in this encounter Additional Health Concerns Assessment Noted Time PHQ-9 Depression Total Score: 10 022 12:04 PM CDT documented as of this encounter Care Teams Manager Testing Relationship Specialty Start Date End Date Luis Ambriz MD [address] [place] [address] [id number] PCP - General Family Medicine 02/16/22 Bola Amor, SOCIAL SERVICE DIRECTOR, [facility] [address] [facility] [email or web address] [address] [place], [place] [id number] Assigned Behavioral Health Provider 12/04/21 Shaan Ramirez MD [address] [place], [place] [phone] Assigned Surgical Provider 12/04/[address] MD [address] [place], [place] [address] Assigned Rheumatology Provider 02/25/22 Nini Patten MD [address] [place] [address] Endocrinology, Diabetes, and Metabolism 08/29/22 Nini Patten MD [address] [place] [address] Assigned Endocrinology Provider 01/20/23 Margaret Reyes, [facility] Pharmacist 08/10/23 documented as of this encounter
--- OUTSIDE RECORDS SUMMARY | 2023-09-25 19:51 | XMS_ITS | Clinical Summary ---
Author Name Unknown Organization [facility] Address [address] [place] [address] Care Team Providers Care Rehabilitation Teacher Name Role Phone No Contact, Pcp Primary Care Provider Unavailabl e Source Comments Patient records contain information from all sites at [facility]. For routine questions regarding patient records, call [phone] during business hours, M-F 8:00 AM - 5:00 PM Central Time. Record requests for emergency care only can be directed to [phone] at any time.[facility] Allergies Active Allergy Reactions Criticality Noted Date [...] 1977 Colorectal Cancer Screening 1977 Depression Monitoring (PHQ-9) 1977 Diabetic Office Visit with Foot Exam 1977 Dilated Eye Exam 1977 FIT 1977 HIV Screening 1977 Hemoglobin A1C 1977 Hepatitis B Vaccines (1 of 3 - 3-dose series) 1977 Hepatitis C Screening 1977 Mammogram 1977 Urine Albumin 1977 Pneumococcal vaccine (0-64 years) (1 of 2 - PCV) 1983 COVID-19 Vaccine (5 - 2022-24 season) 2023 10/19/2022, 07/20/2021, 10/13/2020, Additional history exists Influenza Vaccine (#1) 2023 , 04/14/2020, 2019, Additional history exists Office Visit for Blood Pressure Check / Re-check 05/12/2023 05/12/2022 Creatinine Level (Kidney Function Test) 05/14/2023 05/14/2022, 05/13/2022, 03/20/2022, Additional history exists Potassium Level 05/14/2023 05/14/2022, 10/0 03/2022, 03/20/2022, Additional history exists Sodium Level 05/14/2023 05/14/2022, 10/0 03/2022, 03/20/2022 Lipid (Cholesterol) Screening 08/07/2023 08/07/2022, 07/14/2021, 06/28/2020 DTaP,Tdap,and Td Vaccines (3 - Td or Tdap) 06/18/2024 06/18/2014, 01/01/2014 HPV Vaccines Aged Out No longer eligi ble based on patient's age to complete this topic Advance Directives For more information, please contact: [phone] Latest Code Status on File Code Status Date Activated Date Inactivated Comments Full Code 05/14/2022 6:07 AM 05/14/2022 3:08 PM Question Answer Comments Full Code: Discussed Care Teams Rehabilitation Teacher Relationship Specialty Start Date End Date No Contact, Pcp PCP - General Family Medicine 05/13/22
--- OUTSIDE RECORDS SUMMARY | 2023-09-25 19:51 | XMS_ITS | Clinical Summary ---
Author Name Unknown Organization [facility] [employer] [facility] Address [place], [place] [address] Care Team Providers Care Lace Finisher Name Role Phone Luis Ambriz MD Primary Care Provider [phone] Allergies Active Allergy Reactions Criticality Noted Date Comments Lavender Oil Cough 11/28/2014 Hydrocodone-Acetaminophen Hives 11/28/2014 Medications Medication Sig Dispensed Refills Start Date End Date Status spironolactone (ALDACTONE) 50 mg tabletIndications: hidradentits suppurativa Take 50 mg by mouth 2 times daily. Indications: hidradentits suppurativa 1 03/13/2019 Active metFORMIN (GLUCOPHAGE XR) 500 mg Extended-Release tablet TAKE 1 TO 2 TABLETS BY MOUTH DAILY 0 07/29/2021 Active Accu-Chek Guide test strips strip 4 times daily. 0 08/01/2021 Act efren Accu-Chek Guide Glucose Meter USE DIRECTED 0 08/01/2021 Active rosuvastatin (CRESTOR) 10 mg tablet Take 10 mg by mouth once daily. 0 09/01/2022 Active losartan (COZAAR) 25 mg tablet Take 25 mg by mouth once daily. 0 09/26/2022 Active metoprolol succinate (TOPROL XL) 50 mg sustained-release tablet Take 1 Tablet (50 mg) by mouth once daily. 0 10/16/2022 Active folic acid 1 mg tablet Take 1 mg by mouth once daily. 0 01/09/2022 Active semaglutide (OZEMPIC) 1 mg/dose (4 mg/3 mL) pen Inject 1 mg subcutaneous. 0 04/10/2023 Active methylphenidate HCl (Concerta) 54 mg Extended-Release tabletIndications: Attention deficit hyperactivity disorder (ADHD), combined type Take 1 Tablet (54 mg) by mouth once daily. 30 Tablet 0 07/27/2023 Active methylphenidate HCl (Ritalin) 10 mg tabletIndications: Attention deficit hyperactivity disorder (ADHD), combined type Take 1 Tablet (10 mg) by mouth once daily. 30 Tablet 0 08/10/2023 Active buPROPion (Wellbutrin XL) 300 mg Extended-Release tablet Take 300 mg by mouth once daily. 0 Active ARIPiprazole (ABILIFY) 5 mg tabletIndications: Moderate episode of recurrent major depressive disorder (HC) Take 1 Tablet (5 mg) by mouth once daily. 90 Tablet 0 09/03/2023 Active venlafaxine (Effexor XR) 75 mg cp24 Extended-Release capsuleIndications :Moderate episode of recurrent major depressive disorder (HC) Take 3 Capsules (225 mg) by mouth once daily with a meal. 270 Capsule 0 09/03/2023 Active buPROPion (WELLBUTRIN SR) 150 mg Sustained-Release tablet Take 150 mg by mouth 2 times daily. 0 02/03/2021 09/03/19 24 Discontinu ed(*Med complete/R egimen complete/L evel of care change) Accu-Chek Softclix Lancets 4 times daily. 0 08/01/2021 09/03/19 24 Discontinu ed(*Med complete/R egimen complete/L evel of care change) prednisoLONE acetate 1% ophthalmic (ECONOPRED PLUS, PRED FORTE, OMNIPRED) suspension SHAKE LIQUID AND INSTILL 1 DROP IN BOTH EYES EVERY HOUR 0 10/20/2021 09/03/19 24 Discontinu ed(*Med complete/R egimen complete/L evel of care change) ARIPiprazole (ABILIFY) 5 mg tabletIndications: Mild episode of recurrent major depressive disorder (HC) Take 1 Tablet (5 mg) by mouth once daily. 90 Tablet 0 07/16/2023 09/03/19 24 Discontinu ed(Reorder (E-cancel not sent)) venlafaxine (Effexor XR) 75 mg cp24 Extended-Release capsuleIndications :Mild episode of recurrent major depressive disorder (HC) Take 3 Capsules (225 mg) by mouth once daily with a meal. 270 Capsule 0 07/16/2023 09/03/19 24 Discontinu ed(Reorder (E-cancel not sent)) Active Problems Problem Noted Date Diagnosed Date Controlled substance agreement signed 06/09/2021 Overview: Signed 06-09-2021 Dr. Jennifer Patterson MD Severe episode of recurrent major depressive disorder, without psychotic features PTSD (post-traumatic stress disorder) Attention deficit hyperactiv ity disorder (ADHD), combined type Encounters Date Type Department Care Team Description 09/25/2023 Lab Requisition [facility] [phone] Unknown, Doctor 09/03/2023 10:30 AM OPERATIONS CONSULTANT Office Visit [facility] [address] [place] [address] Yamilka Zelaya NP Follow Up; Medication Management 09/03/2023 Telephone [facility] [address] [place] [address] Yamilka Zelaya NP Medication Management (Concerta & Ritalin) 09/02/2023 Travel 07/16/2023 10:30 AM OPERATIONS CONSULTANT Office Visit [facility] [address] [place] [address] Yamilka Zelaya NP Follow Up; Medication Management 07/16/2023 Travel from Last 3 Months Immunizations Name Administration Dates Next Due COVID-19 vaccine (Moderna 100mcg/0.5mL) [facility] 07/20/2021 Influenza RIV4 (Age 18+ Year s) PRESERV FREE 2019 Influenza, IIV3 (Age 6-35 mos) 06/16/2015 Influenza, IIV3 (Age >=3 years) 04/16/2014 Influenza, IIV4 04/14/2020, 8,08/07/2017, 016 Tdap 06/18/2014,01/01/2014 Family History Medical History Relation Name Comments [...] Tobacco: Never Tobacco Cessation:Counseling Given: Not Answered Alcohol Use Standard Drinks/Week Comments Not Currently 0 (1 standard drink = 0.6 oz pur e alcohol) 1 or 2 a month hard lemonade PHQ-2 Answer Date Recorded PHQ-2 TOTAL SCORE 4 09/02/2023 Social Connections Answer Date Recorded Frequency of Communication with Friends and Fami ly Not on file 06/26/2022 Alcohol Use Answer Date Recorded How often do you have a drink containing alcohol ? 1 08/15/2021 How many drinks containing a lcohol do you have on a typical day when you are drinking? 0 08/15/2021 How often do you have five or more drinks on one occasion? 0 08/15/2021 Sex and Gender Information Value Date Recorded Sex Assigned at Female 05/02/2020 12:08 PM CDT Gender Identity Female 05/02/2020 12:08 PM CDT Sexual Orientation Bisexual 05/02/2020 12 :08 PM CDT Obstetrics History Last Filed Vital Signs Vital Sign Reading Time Taken Comments Blood Pressure 126/85 09/03/2023 10:45 AM OPERATIONS CONSULTANT Pulse 95 09/03/2023 10:45 AM OPERATIONS CONSULTANT Temperature 36.7 ??C (98 ??F) 01/22/2015 8:22 AM CDT Respiratory Rate - - Oxygen Saturation 97% 01/22/2015 8:22 AM CDT Inhaled Oxygen Concentration - - Weight 106 kg (233 lb 11.2 oz) 09/03/2023 10:45 AM OPERATIONS CONSULTANT Height 167.6 cm (5' 6) 10/16/2022 10:41 AM CDT Body Mass Index 37.72 10/16/2022 10:41 AM CDT Plan of Treatment Upcoming Encounters Date Type Department Care Team (Late st Contact Info) Description 10/29/2023 10:00 AM CDT Office Visit [facility] [address] [place] [address] Yamilka Zelaya NP [address] [place] [address] Health Maintenance Due Date Last Done Comments HIV for age 15-65 1992 Hepatitis C screening for age 18-79 1995 Colonoscopy through age 75 2022 Mammogram for age 45-75 2022 Pap test for age 21-65 07/21/2022 9, 07/21/2019, 08/11/2016, Additional history exists COVID-19 vaccine series (5 - 2022-24 season) 2023 10/19/2022, 07/20/2021, 10/13/2020, Additional history exists Influenza for age 9-49 04/06/2023 0, 2019, 05/16/2018, Additional history exists BMI (ht and wt on same day) for age 18+ 10/17/2023 10/16/2022, 08/07/2022, 06/30/2019, Additional history exists Tetanus booster 06/18/2024 06/18/2014, 01/01/2014 Depression screening for age 12+ 09/03/2024 09/03/2023, 09/03/2023, 07/16/2023, Additional history exists Lipids for age 45-75 08/07/2027 08/07/2022, 07/14/2021, 06/28/2020 Tdap Completed 06/18/2014, 01/01/2014 Pneumococcal series for age 6-64 Aged Out No longer eligible based on patient's age to complete this topic Care Teams Lace Finisher Relationship Specialty Start Date End Date Luis Ambriz MD [id number] [place] [address] PCP - General Family Practice 05/11/20
--- OUTSIDE RECORDS SUMMARY | 2023-09-25 19:51 | XMS_ITS ---
Author Name Unknown Organization [facility] Address [address] [place] [address] Care Team Providers Care Business Information Analyst Name Role Phone Unavailable Unavailable Unavailable Surgery Details Not on file Complications Check Surgery Details section. Procedure Estimated Blood Loss Check Surgery Details section. Procedure Findings Check Surgery Details section. Procedure Specimens Taken Check Surgery Details section.
--- NOTE | 2023-10-10 13:10 | W.PM.SLEEP ---
Sleep Study Details Details Interpreting Provider: Diane Date of Sleep Study: 09/25/23 Sleep Study Details: STUDY TYPE:? Home unattended ? BMI:? 37.1 ORDERING PROVIDER:? Katina INDICATION:? Concerns about sleep apnea ? SLEEP SUMMARY:? 402 minutes monitored RESPIRATORY SUMMARY:? AHI 10.6 Low oxygen 79 4.7% of study oxygen less than 90% Snoring 5.7% PERIODIC LIMB MOVEMENTS OF SLEEP:? Not recorded during home study CARDIAC:? Range 61-87, mean 70.4 beats per minute IMPRESSION:? Mild obstructive sleep apnea RECOMMENDATION: Treatment options include CPAP, dental appliance, weight loss and/or airway expansion surgery.
== END 2023-09-25 19:45 | disposition home or self-care (01) ==
PROVIDERS: PCP Family Medicine; Visit Provider Otolaryngology
DX: G47.33 Obstructive sleep apnea (adult) (pediatric) (principal)
CPT/HCPCS: 95806

== ENCOUNTER 2024-01-24 09:03 | Outpatient (CLI) | payer OTHER, SELFPAY ==
--- OUTSIDE RECORDS SUMMARY | 2024-01-24 09:07 | XMS_ITS | Clinical Summary ---
Author Organization [place] Address [address] [place] [address] Care Team Providers Care Vineyardist Name Role Phone ZuleymaBola [facility], [facility] Unavailable [phone] Shaan Ramirez MD Unavailable [phone] Luis Ambriz MD Primary Care Provider [phone] MD Unavailable [phone] AlaNini somers MD Unavailable [phone] Nini Patten MD Unavailable [phone] Margaret Reyes [facility] Unavailable Unavailable Adria Cisneros MD Unavailable [phone] Adria Cisneros MD Unavailable [phone] Allergies Active Allergy Reactions Criticality Noted Date Comments Doxycycline Nausea High 12/13/2023 Hydrocodone Hives,Itching High 05/12/2022 Hydrocodone-Acetaminophen Hives,Itching 015 Lavandula Latifolia Cough,Other (See Comments) 11/29/2021 Lavender Oil Cough 11/28/2014 Medications Medication Sig Dispensed Refills Start Date End Date Status rosuvastatin (CRESTOR) 10 MG tablet Take 1 tablet by mouth daily at 2 pm 09/01/2022 Active losartan (COZAAR) 25 MG tablet Take 25 mg by mouth 08/28/2022 Active Semaglutide, 1 MG/DOSE, (OZEMPIC) 4 MG/3ML penIndications:D iabetes mellitus, type 2 (H) Inject 1 mg Subcutaneous every 7 days 9 mL 1 04/10/2023 Active Vitamin D3 (VITAMIN D, CHOLECALCIFEROL, ) 25 mcg (1000 units) tablet Take 3 tablets by mouth daily Active methotrexate 2.5 MG tabletIndication s:Psoriasis,Inte rmediate uveitis of both eyes,Hidradeniti s suppurativa Take 5 tablets (12.5 mg) by mouth every 7 days 60 tablet 3 11/09/2023 Active folic acid (FOLVITE) 1 MG tabletIndication s:Psoriasis,Inte rmediate uveitis of both eyes,Hidradeniti s suppurativa Take 1 tablet (1 mg) by mouth daily 90 tablet 3 11/09/2023 Active tofacitinib (XELJANZ) 5 MG tabletIndication s:Psoriasis Take 1 tablet (5 mg) by mouth 2 times daily 60 tablet 6 11/09/2023 Active lisdexamfetamine (VYVANSE) 30 MG capsule TAKE 1 CAPSULE (30 MG) BY MOUTH ONCE DAILY. EFFECTIVE DATE:12/28/23 Active venlafaxine (EFFEXOR) 75 MG tablet 12/17/2023 Active ARIPiprazole (ABILIFY) 5 MG tablet Take 5 mg by mouth 11/09/2021 4 Discontinued( Stopped by Patient (No AVS)) metFORMIN (GLUCOPHAGE-XR) 500 MG 24 hr tablet TAKE 1 TO 2 TABLETS BY MOUTH DAILY 07/29/2021 4 Discontinued( Therapy completed (No AVS)) metoprolol succinate ER (TOPROL-XL) 50 MG 24 hr tablet Take 50 mg by mouth 04/27/2021 4 Discontinued( Therapy completed (No AVS)) spironolactone (ALDACTONE) 50 MG tablet Take 50 mg by mouth 2 times daily 10/21/2021 4 Discontinued( Therapy completed (No AVS)) venlafaxine (EFFEXOR-XR) 150 MG 24 hr capsule 225 mg 11/09/2021 4 Discontinued( Stopped by Patient (No AVS)) Active Problems Problem Noted Date Diagnosed Date [...] Encounters Date Type Department Care Team Description 01/14/2024 11:30 AM CDT Lab [facility] [address] [phone] High risk medication use; Long-term current use of tofacitinib 01/14/2024 10:00 AM CDT Office Visit [facility] - [address] [facility] [address] [place] [phone] Shaan Ramirez MD Recurrent iritis, bilateral (Primary Dx); Intermediate uveitis of both eyes; Cystoid macular edema of both eyes; High risk medication use 01/14/2024 Travel 01/09/2024 9:00 AM CDT Virtual Visit [facility] [address] [phone] Adria Cisneros MD Tapp, Megan M, [facility] Hidradenitis suppurativa (Primary Dx); Intermediate uveitis of both eyes; Psoriasis; Vaccine counseling 12/11/2023 MyC Medical Advice [facility] [address] [phone] Margaret Reyes [facility] 11/09/2023 9:00 AM CDT Virtual Visit [facility] [address] [phone] Adria Cisneros MD Long-term current use of tofacitinib (Primary Dx); Psoriasis; Intermediate uveitis of both eyes; Hidradenitis suppurativa from Last 3 Months Immunizations Name Administration Dates Next Due COVID-19 Monovalent 18+ (Moderna) 07/20/2021 Influenza (IIV3) PF 04/16/2014 Influenza Vaccine 18-64 (Flublok) 05/26/2022, Influenza Vaccine >6 months,quad, PF 04/2020,05/16/2018,08/07/2017, 016 Influenza, seasonal, injectable, PF 06/16/2015 TDAP (Adacel,Boostrix) 06/18/2014,01/01/2014 Family History Medical History Relation Comments Diabetes Paternal Grandfather Glaucoma No family hx of Macular Degeneration No family hx of Relation Status Comments Paternal Grandfather Social History Tobacco Use Types Packs/Day Years Used Date Smoking Tobacco: Never Passive Smoke Exposure: Never Smokeless Tobacco: Never Tobacco Cessation:Counseling Given: Not Answered Alcohol Use Standard Drinks/Week Comments Yes 0 (1 standard drink = 0.6 oz pur e alcohol) Occ. PHQ-2 Answer Date Recorded PHQ-2 Score 0 11/09/2023 Adolescent Education Answer Date Record ed Getting [...] - Inhaled Oxygen Concentration - - Weight 104.3 kg (230 lb) 11/09/2023 9:03 AM CDT Height 167.6 cm (5' 6) 11/09/2023 9:03 AM CDT Body Mass Index 37.12 11/09/2023 9:03 AM CDT Plan of Treatment Upcoming Encounters Date Type Department Care Team (Late st Contact Info) Description 06/02/2024 10:00 AM CDT Office Visit [facility] - [address] [place] [phone] Shaan Ramirez MD [address] [place] [phone] 08/01/2024 8:00 AM STUDENT RECRUITER Virtual Visit [facility] [address] [phone] Adria Cisneros MD [address] [place] [phone] Health Maintenance Due Date Last Done Comments A1C 1977 ADVANCE CARE PLANNING 1977 ANNUAL REVIEW OF HM ORDERS 1977 CT COLONOGRAPHY 1977 DEPRESSION ACTION PLAN 1977 DIABETIC FOOT EXAM 1977 FIT 1977 FLEX SIG 1977 MAMMO SCREENING 1977 MENTAL HEALTH TX PLAN 1977 YEARLY PREVENTIVE VISIT 1977 sDNA (Cologuard) 1977 Pneumococcal Vaccine: Pediatrics (0 to 5 Years) and At-Risk Patients (6 to 64 Years) (1 of 2 - PCV) 1983 COLONOSCOPY 1987 COLORECTAL CANCER SCREENING 1987 HEPATITIS B IMMUNIZATION (1 of 3 - 19+ 3-dose series) 1996 PAP 07/21/2022 07/21/2019 COVID-19 Vaccine ( season) 2023 10/19/2022, 07/20/2021, 10/13/2020, Additional history exists PHQ-9 06/27/2023 12/25/2022, 0302/2023, 09/11/2022, Additional history exists MICROALBUMIN 02/03/2024 02/02/2023 INFLUENZA VACCINE (Season Ended) 2024 05/26/2022, 04/14/2020, 2019, Additional history exists DTAP/TDAP/TD IMMUNIZATION (3 - Td or Tdap) 06/18/2024 06/18/2014, 01/01/2014 BMP 01/13/2025 01/14/2024, 1208/2022, 02/02/2023, Additional history exists EYE EXAM 01/13/2025 01/14/2024, 09/06, 06/08/2023, Additional history exists LIPID 01/13/2025 01/14/2024 HIV SCREENING Completed 12/30/2021 HEPATITIS C SCREENING Completed 01/14/2024, 022 HPV IMMUNIZATION Aged Out No longer e [...] Comments CBC WITH PLATELETS & DIFFERENTIAL Routine 01/14/2024 11:14 AM CDT High risk medication use CBC WITH PLATELETS AND DIFFERENTIAL Routine 01/14/2024 11:14 AM CDT High risk medication use COMPREHENSIVE METABOLIC PANEL Routine 01/14/2024 11:14 AM CDT High risk medication use ERYTHROCYTE SEDIMENTATION RATE AUTO Routine 01/14/2024 11:14 AM CDT High risk medication use HEPATITIS C ANTIBODY Routine 01/14/2024 11:14 AM CDT High risk medication use HEPATITIS B SURFACE ANTIGEN Routine 01/14/2024 11:14 AM CDT High risk medication use HEPATITIS B CORE ANTIBODY Routine 01/14/2024 11:14 AM CDT High risk medication use LIPID REFLEX TO DIRECT LDL PANEL Routine 01/14/2024 11:14 AM CDT High risk medication use CRP INFLAMMATION Routine 01/14/2024 11:1 4 AM CDT High risk medication use OCT RETINA SPECTRALIS OU (BOTH EYE) Routine 01/14/2024 10:33 AM CDT Cystoid macular edema of both eyes ALBUMIN RANDOM URINE QUANTITATIVE Routine 02/02/2023 11:59 AM CDT Type 2 diabetes mellitus without complication, without long-term current use of insulin (H) HIV ANTIGEN ANTIBODY COMBO Routine 12/30/2021 9:15 AM CDT EYE EXAM - HIM SCAN 11/28/2021 1 2:00 AM CDT from Last 3 Months or Most Recently Relevant to Health Maintenance Results * CBC with platelets and differential (01/14/2024 11:14 AM CDT) [facility] WBC Count 5.6 4.0 - 11.0 10e3/uL 01/14/2024 11:19 AM CDT [facility] RBC Count 4.51 3.80 - 5.20 10e6/uL 01/14/2024 11:19 AM CDT [facility] Hemoglobin 14.4 11.7 - 15.7 g/dL 01/14/2024 11:19 AM CDT [facility] Hematocrit 41.2 35.0 - 47.0 % 01/14/2024 11:19 AM CDT [facility] MCV 91 78 - 100 fL 01/14/2024 11:19 AM CDT [facility] MCH 31.9 26.5 - 33.0 pg 01/14/2024 11:19 AM CDT [facility] MCHC 35.0 31.5 - 36.5 g/dL 01/14/2024 11:19 AM CDT [facility] RDW 12.1 10.0 - 15.0 % 01/14/2024 11:19 AM CDT [facility] Platelet Count 221 150 - 450 10e3/uL 01/14/2024 11:19 AM CDT [facility] % Neutrophils 56 % 01/14/2024 11:19 AM CDT [facility] % Lymphocytes 34 % 01/14/2024 11:19 AM CDT [facility] % Monocytes 7 % 01/14/2024 11:19 AM CDT [facility] % Eosinophils 2 % 01/14/2024 11:19 AM CDT [facility] % Basophils 1 % 01/14/2024 11:19 AM CDT [facility] % Immature Granulocytes 0 % 01/14/2024 11:19 AM CDT [facility] NRBCs per 100 WBC 0 <1 /100 024 11:19 AM CDT [facility] Absolute Neutrophils 3.2 1.6 - 8.3 10e3/uL 01/14/2024 11:19 AM CDT [facility] Absolute Lymphocytes 1.9 0.8 - 5.3 10e3/uL 01/14/2024 11:19 AM CDT [facility] Absolute Monocytes 0.4 0.0 - 1.3 10e3/uL 01/14/2024 11:19 AM CDT [facility] Absolute Eosinophils 0.1 0.0 - 0.7 10e3/uL 01/14/2024 11:19 AM CDT [facility] Absolute Basophils 0.0 0.0 - 0.2 10e3/uL 01/14/2024 11:19 AM CDT [facility] Absolute Immature Granulocytes 0.0 <=0.4 10e3/uL 01/14/2024 11:19 AM CDT [facility] Absolute NRBCs 0.0 10e3/uL 01/14/2024 11:19 AM CDT [facility] Blood STRUCTURE OF LEFT HAND / Unknown Venipuncture / Unknown 01/14/2024 11:14 AM CDT 01/14/2024 11:14 AM CDT Shaan Ramirez MD LAB - BLOOD ORD ERABLES [facility] Clinics and Surgery [address] [place] [address] * Lipid panel reflex to direct LDL Fasting (01/14/2024 11:14 AM CDT) Cholesterol 137 <200 mg/dL 01/14/2024 11:39 AM CDT [facility] Triglycerides 149 <150 mg/dL 01/14/2024 11:39 AM CDT [facility] Direct Measure HDL 63 >=50 mg/dL 2023 11:39 AM CDT [facility] LDL Cholesterol Calculated 44 <=100 mg/dL 01/14/2024 11:39 AM CDT [facility] Non HDL Cholesterol 74 <130 mg/dL 01/14/2024 11:39 AM CDT [facility] Patient Fasting > 8hrs? No 01/14/2024 11:39 AM CDT [facility] Blood STRUCTURE OF LEFT HAND / Unknown Venipuncture / Unknown 01/14/2024 11:14 AM CDT 01/14/2024 11:14 AM CDT Narrative [facility] - 01/14/2024 11:39 AM CDT Cholesterol Desirable: ??<200 mg/dL Triglycerides Normal: ??Less than 150 mg/dL Borderline High: ??150-199 mg/dL High: ??200-499 mg/dL Very High: ??Greater than or equal to 500 mg/dL Direct Measure HDL Female: ??Greater than or equal to 50 mg/dL Male: ??Greater than or equal to 40 mg/dL LDL Cholesterol Desirable: ??<100mg/dL Above Desirable: ??100-129 mg/dL Borderline High: ??130-159 mg/dL High: ??160-189 mg/dL Very High: ??>= 190 mg/dL Non HDL Cholesterol Desirable: ??130 mg/dL Above Desirable: ??130-159 mg/dL Borderline High: ??160-189 mg/dL High: ??190-219 mg/dL Very High: ??Greater than or equal to 220 mg/dL Adria Cisneros MD LAB - BLOOD ORDERAB LES [facility] Organization Address City/State/ZIP Co de Phone Number [facility] Clinics and [facility] Center - [address] 1st [place] [address] * Hepatitis C antibody (01/14/2024 11:14 AM CDT) Hepatitis C Antibody Nonreactive Nonreactive 01/15/2024 9:38 AM CDT [facility] Comment:A nonreactive screen ing test result does not exclude the possibility of exposure to or infection with HCV. Nonreactive screening test results in individuals with prior exposure to HCV may be due to antibody levels below the limit of detection of this assay or lack of reactivity to the HCV antigens used in this assay. Patients with recent HCV infections (<3 months from time of exposure) may have false- negative HCV antibody results due to the time needed for seroconversion (average of 8 to 9 weeks). Blood STRUCTURE OF LEFT HAND / Unknown Venipuncture / Unknown 01/14/2024 11:14 AM CDT 01/14/2024 11:14 AM CDT Adria Cisneros MD LAB - BLOOD ORDERAB LES Performing Organization Address City/[facility] Co de Phone Number [facility] Core Lab [address] [facility], [address] * Hepatitis B surface antigen (01/14/2024 11:14 AM CDT) Hepatitis B Surface Antigen Nonreactive Nonreactive 01/14/2024 4:51 PM CDT [facility] Blood STRUCTURE OF LEFT HAND / Unknown Venipuncture / Unknown 01/14/2024 11:14 AM CDT 01/14/2024 11:14 AM CDT Adria Cisneros MD LAB - BLOOD ORDERAB LES Performing Organization Address [facility] de Phone Number [facility] Lab [address] [facility], Room [address] [place] [address] * Hepatitis B core antibody (01/14/2024 11:14 AM CDT) Hepatitis B Core Antibody Total Nonreactive Nonreactive 01/14/2024 4:51 PM CDT [facility] Comment:Nonreactive hepatiti s B core antibody test results indicate the absence of exposure to hepatitis B virus and no evidence of recent, past/resolved, or chronic hepatitis B. Blood STRUCTURE OF LEFT HAND / Unknown Venipuncture / Unknown 01/14/2024 11:14 AM CDT 01/14/2024 11:14 AM CDT Adria Cisneros MD LAB - BLOOD ORDERAB LES [facility] [address] [facility] [address], [address] [place] [address], [facility] * Erythrocyte sedimentation rate auto (01/14/2024 11:14 AM CDT) Pathologist [facility] Erythrocyte Sedimentation Rate 11 0 - 20 mm/hr 01/14/2024 11:37 AM CDT [facility] Blood STRUCTURE OF LEFT HAND / Unknown Venipuncture / Unknown 01/14/2024 11:14 AM CDT 01/14/2024 11:14 AM CDT Shaan Ramirez MD LAB - BLOOD ORD ERABLES [facility] [address] [place] [address] * CRP inflammation (01/14/2024 11:14 AM CDT) Pathologist [facility] CRP Inflammation <3.00 <5.00 mg/L 01/14/20 11:39 AM CDT [facility] Blood STRUCTURE OF LEFT HAND / Unknown Venipuncture / Unknown 01/14/2024 11:14 AM CDT 01/14/2024 11:14 AM CDT Adria Cisneros MD LAB - BLOOD ORDERAB LES Performing Organization Address City/[facility]/ZIP Co de Phone Number [facility] [address] [place] [address] * (ABNORMAL) Comprehensive metabolic panel (01/14/2024 11:14 AM CDT) Pathologist [facility] Sodium 137 135 - 145 mmol/L 01/14/2024 11:39 AM CDT [facility] Comment:Reference intervals for this test were updated on 05/01/2023 to more accurately reflect our healthy population. There may be differences in the flagging of prior results with similar values performed with this method. Interpretation of those prior results can be made in the context of the updated reference intervals. Potassium 4.3 3.4 - 5.3 mmol/L 01/14/2024 11:39 AM CDT [facility] Carbon Dioxide (CO2) 22 22 - 29 mmol/L 01/14/2024 11:39 AM CDT [facility] Anion Gap 11 7 - 15 mmol/L 01/14/2024 11:39 AM CDT [facility] Urea Nitrogen 10.4 6.0 - 20.0 mg/dL 01/14/2024 11:39 AM T [facility] Creatinine 0.80 0.51 - 0.95 mg/dL 01/14/2024 11:39 AM T [facility] GFR Estimate >90 >60 mL/min/1. 73m2 01/14/2024 11:39 AM T [facility] Calcium 9.6 8.6 - 10.0 mg/dL 01/14/2024 11:39 AM CDT [facility] Chloride 104 98 - 107 mmol/L 01/14/2024 11:39 AM T [facility] Glucose 99 70 - 99 mg/dL 01/14/2024 11:39 AM T [facility] Alkaline Phosphatase 66 40 - 150 U/L 01/14/2024 11:39 AM T [facility] AST 33 0 - 45 U/L 01/14/2024 11:39 AM CDT [facility] Comment:Reference intervals for this test were updated on 01/15/2023 to more accurately reflect our healthy population. There may be differences in the flagging of prior results with similar values performed with this method. Interpretation of those prior results can be made in the context of the updated reference intervals. ALT 45 0 - 50 U/L 01/14/2024 11:39 AM T [facility] Comment:Reference intervals for this test were updated on 01/15/2023 to more accurately reflect our healthy population. There may be differences in the flagging of prior results with similar values performed with this method. Interpretation of those prior results can be made in the context of the updated reference intervals. Protein Total 7.1 6.4 - 8.3 g/dL 01/14/2024 11:39 AM T [facility] Albumin 4.2 3.5 - 5.2 g/dL 01/14/2024 11:39 AM CDT [facility] Bilirubin Total 1.3(H) <=1.2 mg/dL 01/14/2024 11:39 AM CDT [facility] Patient Fasting > 8hrs? No 01/14/2024 11:39 AM CDT [facility] Blood STRUCTURE OF LEFT HAND / Unknown Venipuncture / Unknown 01/14/2024 11:14 AM CDT 01/14/2024 11:14 AM CDT Shaan Ramirez MD LAB - BLOOD ORD ERABLES [facility] Clinics [facility] Surgery Center - [address] 1st [place] [address] * OCT Retina Spectralis OU (both eyes) (01/14/2024 10:33 AM CDT) Narrative Shaan Ramirez MD - 01/14/2024 10:33 AM CDT Performed by: TLT . Patient cooperation: Reliable . Right Eye Reliability of the test: Good . Findings normal/abnormal: Normal OCT . Interpretation: Retinal disease . Plan: Monitor . Interval: Same . Left Eye Reliability of the test: Good . Findings normal/abnormal: Normal OCT . Interpretation: Retinal disease . Plan: Monitor . Interval: Same . Notes OCT Spectralis Macula January 14, 2024 right eye: Normal contour, no fluid. No NFL Thickening, no PP fluid left eye: : Normal contour, no fluid. No NFL Thickening, no PP fluid Shaan Ramirez MD OPHTHALMOLOGY * Albumin Random Urine Quantitative with Creat [...] control, and institution of therapy with an [id number] (ROBERTO) inhibitor (if the patient can tolerate it). ?? Urine MID-STREAM URINE SPECIMEN / Unknown Non-blood Collection / Unknown 02/02/2023 11:59 AM CDT 02/02/2023 11:59 AM CDT Nini Patten MD LAB - URINE ORDERABL ES [facility] [address] [place] [address], [address] [address], [facility] [phone] * HIV Antigen Antibody Combo (12/30/2021 9:15 AM CDT) HIV 1&2 Antibody (External) NEGATIVE NEGATIVE NON-INTERFACE D (ONBASE SCANS) Blood 12/30/2021 9:15 AM CDT Narrative [facility] - 01/06/2022 1:23 PM CDT Verified by Chetan Puga on 01/06/2022. Provider Outside LAB - BLOOD ORDERABL ES BREEZE PFT NON-INTERFACED (ONBASE SCANS) * EYE EXAM - HIM SCAN (11/28/2021 12:00 AM CDT) 11/28/2021 Provider Outside OTHER from Last 3 Months or Most Recently Relevant to Health Maintenance Care Teams Vineyardist Relationship Specialty Start Date End Date Luis Ambriz MD [address] [place] [phone] PCP - General Family Medicine 02/16/22 Bola Amor, [facility], [facility] [address] [phone] Assigned Behavioral Health Provider 12/04/21 Shaan Ramirez MD [address] [place] [address] [phone] Assigned Surgical Provider 12/04/[address] MD [address] [place] [address] Assigned Rheumatology Provider 02/25/22 Nini Patten MD [address] [place] [address] Endocrinology, Diabetes, and Metabolism 08/29/22 Nini Patten MD [address] [place] [address] [facility] Endocrinology Provider 01/20/23 Margaret Reyes, [facility] 08/10/23 Adria Cisneros MD [address] [place] [phone] Rheumatology 11/09/23 Adria Cisneros MD [address] [place] [address] Rheumatology 11/09/23
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
--- OUTSIDE RECORDS SUMMARY | 2024-01-24 09:08 | XMS_ITS | Encounter Summary ---
Author Organization [facility] Address [address] [place] [address] Care Team Providers Care Fnp Name Role Phone Eve Amorcamila Naranjo [facility], [facility] Unavailable [phone] Shaan Ramirez MD Unavailable [phone] Luis Ambriz MD Primary Care Provider [phone] MD Unavailable [phone] Nini Patten MD Unavailable [phone] Nini Patten MD Unavailable [phone] Margaret Reyse [facility] Unavailable Unavailable Adria Cisneros MD Unavailable [phone] Adria Cisneros MD Unavailable [phone] Reason for Visit * (Routine) - Pending Review Specialty Diagnoses / Procedures Referred By Contac t Referred To Contact Diagnoses High risk medication use Procedures Lipid panel reflex to direct LDL Fasting Shaan Ramirez MD [address] [place] [id number] Referral ID Status Reason Start Date Expiration Date V isits Requested Visits Authorized [id number] Pending Review 01/14/2024 01/13/2025 1 1 Encounter Details Date Type Department Care Team (Late st Contact Info) Description 01/14/2024 11:30 AM CDT Lab [facility] [address] [facility] 1st [place] [address] High risk medication use; Long-term current use of tofacitinib Social History Tobacco Use Types Packs/Day Years Used Date Smoking Tobacco: Never Passive Smoke Exposure: Never Smokeless Tobacco: Never Alcohol Use Standard Drinks/Week Comments Yes 0 [...] as of this encounter Miscellaneous Notes * Addendum Note - Vasu Rodríguez CLT - 01/14/2024 11:30 AM CDTAddended by: VASU RODRÍGUEZ on: 01/14/2024 11:40 AM Modules accepted: Orders documented in this encounter Plan of Treatment Upcoming Encounters Date Type Department Care Team (Late st Contact Info) Description 06/02/2024 10:00 AM CDT Office Visit [facility] - [address] [address] [place] [phone] Shaan Ramirez MD [address] [place] [phone] 08/01/2024 8:00 AM DRAWER LINER Virtual Visit [facility] [address] [phone] Adria Cisneros MD [address] [place] [phone] Scheduled Orders Name Type Priority Associated Diagnoses Orde r Schedule Quantiferon-TB Gold Plus Lab Panel Routine High risk medication use Long-term current use of tofacitinib Expected: 01/14/2024 (Approximate), Expires: 01/13/2025 documented as of this encounter Procedures Procedure Name Priority Date/Time Associated Diagnosis Comments CBC WITH PLATELETS AND DIFFERENTIAL Routine 01/14/2024 11:14 AM CDT High risk medication use CBC WITH PLATELETS & DIFFERENTIAL Routine 01/14/2024 [...] 4 AM CDT High risk medication use COMPREHENSIVE METABOLIC PANEL Routine 01/14/2024 11:14 AM CDT High risk medication use documented in this encounter Results * CBC with platelets and differential (01/14/2024 11:14 AM CDT) [facility] WBC Count 5.6 4.0 - 11.0 10e3/uL 01/14/2024 11:19 AM CDT [facility] RBC Count 4.51 3.80 - 5.20 10e6/uL 01/14/2024 11:19 AM CDT [facility] Hemoglobin 14.4 11.7 - 15.7 g/dL 01/14/2024 11:19 AM CDT [facility] Hematocrit 41.2 35.0 - 47.0 % 01/14/2024 11:19 AM CDT [facility] MCV 91 78 - 100 fL 01/14/2024 11:19 AM CDT [facility] MCH 31.9 26.5 - 33.0 pg 01/14/2024 11:19 AM CDT [facility] MCHC 35.0 31.5 - 36.5 g/dL 01/14/2024 11:19 AM CDT [facility] RDW 12.1 10.0 - 15.0 % 01/14/2024 11:19 AM CDT [facility] Platelet Count 221 150 - 450 10e3/uL 01/14/2024 11:19 AM CDT [facility] % Neutrophils 56 % 01/14/2024 11:19 AM CDT [facility] % Lymphocytes 34 % 01/14/2024 11:19 AM CDT [facility] % Monocytes 7 % 01/14/2024 11:19 AM CDT [facility] % Eosinophils 2 % 01/14/2024 11:19 AM CDT [facility] % Basophils 1 % 01/14/2024 11:19 AM CDT [facility] % Immature Granulocytes 0 % 01/14/2024 11:19 AM CDT [facility] NRBCs per 100 WBC 0 <1 /100 024 11:19 AM CDT [facility] Absolute Neutrophils 3.2 1.6 - 8.3 10e3/uL 01/14/2024 11:19 AM CDT [facility] Absolute Lymphocytes 1.9 0.8 - 5.3 10e3/uL 01/14/2024 11:19 AM CDT [facility] Absolute Monocytes 0.4 0.0 - 1.3 10e3/uL 01/14/2024 11:19 AM CDT [facility] Absolute Eosinophils 0.1 0.0 - 0.7 10e3/uL 01/14/2024 11:19 AM CDT [facility] Absolute Basophils 0.0 0.0 - 0.2 10e3/uL 01/14/2024 11:19 AM CDT [facility] Absolute Immature Granulocytes 0.0 <=0.4 10e3/uL 01/14/2024 11:19 AM CDT [facility] Absolute NRBCs 0.0 10e3/uL 01/14/2024 11:19 AM CDT [facility] Blood STRUCTURE OF LEFT HAND / Unknown Venipuncture / Unknown 01/14/2024 11:14 AM CDT 01/14/2024 11:14 AM CDT Shaan Ramirez MD LAB - BLOOD ORD ERABLES [facility] [address] [place] [address] 1st [place] [address] * (ABNORMAL) Comprehensive metabolic panel (01/14/2024 11:14 AM CDT) Pathologist [facility] Sodium 137 135 - 145 mmol/L 01/14/2024 11:39 AM CDT [facility] Comment:Reference intervals for this test were updated on 05/01/2023 to more accurately reflect our healthy population. There may be differences in the flagging of prior results with similar values performed with this method. Interpretation of those prior results can be made in the context of the updated reference intervals. Potassium 4.3 3.4 - 5.3 mmol/L 01/14/2024 11:39 AM CDT [facility] Carbon Dioxide (CO2) 22 22 - 29 mmol/L 01/14/2024 11:39 AM CDT [facility] Anion Gap 11 7 - 15 mmol/L 01/14/2024 11:39 AM CDT [facility] Urea Nitrogen 10.4 6.0 - 20.0 mg/dL 01/14/2024 11:39 AM CDT [facility] Creatinine 0.80 0.51 - 0.95 mg/dL 01/14/2024 11:39 AM CDT [facility] GFR Estimate >90 >60 mL/min/1. 73m2 01/14/2024 11:39 AM CDT [facility] Calcium 9.6 8.6 - 10.0 mg/dL 01/14/2024 11:39 AM CDT [facility] Chloride 104 98 - 107 mmol/L 01/14/2024 11:39 AM CDT [facility] Glucose 99 70 - 99 mg/dL 01/14/2024 11:39 AM CDT [facility] Alkaline Phosphatase 66 40 - 150 U/L 01/14/2024 11:39 AM CDT [facility] AST 33 0 - 45 U/L 01/14/2024 11:39 AM CDT [facility] Comment:Reference intervals for this test were updated on 01/15/2023 to more accurately reflect our healthy population. There may be differences in the flagging of prior results with similar values performed with this method. Interpretation of those prior results can be made in the context of the updated reference intervals. ALT 45 0 - 50 U/L 01/14/2024 11:39 AM CDT [facility] Comment:Reference intervals for this test were updated on 01/15/2023 to more accurately reflect our healthy population. There may be differences in the flagging of prior results with similar values performed with this method. Interpretation of those prior results can be made in the context of the updated reference intervals. Protein Total 7.1 6.4 - 8.3 g/dL 01/14/2024 11:39 AM CDT [facility] Albumin 4.2 3.5 - 5.2 g/dL 01/14/2024 11:39 AM CDT [facility] Bilirubin Total 1.3(H) <=1.2 mg/dL 01/14/2024 11:39 AM CDT [facility] Patient Fasting > 8hrs? No 01/14/2024 11:39 AM CDT [facility] Blood STRUCTURE OF LEFT HAND / Unknown Venipuncture / Unknown 01/14/2024 11:14 AM CDT 01/14/2024 11:14 AM CDT Shaan Ramirez MD LAB - BLOOD ORD ERABLES [facility] [address] [place] [address] 1st [place] [address] * Erythrocyte sedimentation rate auto (01/14/2024 11:14 AM CDT) Erythrocyte Sedimentation Rate 11 0 - 20 mm/hr 01/14/2024 11:37 AM CDT [facility] Blood STRUCTURE OF LEFT HAND / Unknown Venipuncture / Unknown 01/14/2024 11:14 AM CDT 01/14/2024 11:14 AM CDT Shaan Ramirez MD LAB - BLOOD ORD ERABLES [facility] - [address] 1st [place] [address] * Hepatitis C antibody (01/14/2024 11:14 AM [...] - BLOOD ORDERAB LES Performing Organization Address City/[facility]/ZIP Co de Phone Number [facility] [place] [address] [facility], [address] [address], [place] * Hepatitis B surface antigen (01/14/2024 11:14 AM CDT) Pathologist [facility] Hepatitis B Surface Antigen Nonreactive Nonreactive 01/14/2024 4:51 PM CDT [facility] Blood STRUCTURE OF LEFT HAND / Unknown Venipuncture / Unknown 01/14/2024 11:14 AM CDT 01/14/2024 11:14 AM CDT Adria Cisneros MD LAB - BLOOD ORDERAB LES [facility] [place] [facility] [address] [facility], [address] * Hepatitis B core antibody (01/14/2024 11:14 AM CDT) Hepatitis B Core Antibody Total Nonreactive Nonreactive 01/14/2024 4:51 PM CDT [facility] Comment:Nonreactive hepatiti s B core antibody test results indicate the absence of exposure to hepatitis B virus and no evidence of recent, past/resolved, or chronic hepatitis B. Blood STRUCTURE OF LEFT HAND / Unknown Venipuncture / Unknown 01/14/2024 11:14 AM CDT 01/14/2024 11:14 AM CDT Adria Cisneros MD LAB - BLOOD ORDERAB LES [facility] [place] [facility] [address] [facility] * Lipid panel reflex to direct LDL Fasting (01/14/2024 11:14 AM CDT) Cholesterol 137 <200 mg/dL 01/14/2024 11:39 AM CDT [facility] Triglycerides 149 <150 mg/dL 01/14/2024 11:39 AM CDT [facility] Direct Measure HDL 63 >=50 mg/dL 2023 11:39 AM CDT [facility] LDL Cholesterol Calculated 44 <=100 mg/dL 01/14/2024 11:39 AM CDT [facility] Non HDL Cholesterol 74 <130 mg/dL 01/14/2024 11:39 AM CDT [facility] Patient Fasting > 8hrs? No 01/14/2024 11:39 AM CDT [facility] Blood STRUCTURE OF LEFT HAND / Unknown Venipuncture / Unknown 01/14/2024 11:14 AM CDT 01/14/2024 11:14 AM CDT Narrative [facility] - 01/14/2024 11:39 [...] - BLOOD ORDERAB LES Performing Organization Address [facility] de Phone Number [facility] [address] [place] [address] * CRP inflammation (01/14/2024 11:14 AM CDT) CRP Inflammation <3.00 <5.00 mg/L 01/14/20 24 11:39 AM CDT [facility] Blood STRUCTURE OF LEFT HAND / Unknown Venipuncture / Unknown 01/14/2024 11:14 AM CDT 01/14/2024 11:14 AM CDT Adria Cisneros MD LAB - BLOOD ORDERAB LES Performing Organization Address [facility] de Phone Number [facility] - [address] [place] [address] documented in this encounter Visit Diagnoses Diagnosis High risk medication use Encounter for long-term (current) use of other medications Long-term current use of tofacitinib documented in this encounter Additional Health Concerns Assessment Noted Time PHQ-9 Depression Total Score: 4 12/25/19 23 2:25 PM CDT documented as of this encounter Care Teams Fnp Relationship Specialty Start Date End Date Luis Ambriz MD [address] [place] [address] PCP - General Family Medicine 02/16/22 Bola Amor, SYSTEM SPECIALIST, [facility] [address] [place] [address] Assigned Behavioral Health Provider 12/04/21 Shaan Ramirez MD [address] [place] [address] Assigned Surgical Provider 12/04/[address] MD [address] [place] [address] Assigned Rheumatology Provider 02/25/22 Nini Patten MD [address] [place] [address] Endocrinology, Diabetes, and Metabolism 08/29/22 Nini Patten MD [address] [place] [address] Assigned Endocrinology Provider 01/20/23 Margaret Reyes, [facility] Pharmacist 08/10/23 Adria Cisneros MD [address] [place] [phone] Rheumatology 11/09/23 Adria Cisneros MD [address] [place] [address] Rheumatology 11/09/23 documented as of this encounter
--- OUTSIDE RECORDS SUMMARY | 2024-01-24 09:08 | XMS_ITS | Encounter Summary ---
Author Organization [facility] Address [address] [place] [address] Care Team Providers Care Bicycle Fitter Name Role Phone Bola Amor Marcella [facility], [facility] Unavailable [phone] Shaan Ramirez MD Unavailable [phone] Luis Ambriz MD Primary Care Provider [phone] MD Unavailable [phone] Nini Patten MD Unavailable [phone] Nini Patten MD Unavailable [phone] Margaret Reyes [facility] Unavailable Unavailable Adria Cisneros MD Unavailable [phone] Adria Cisneros MD Unavailable [phone] Reason for Referral * (Routine) - Pending Review Specialty Diagnoses / Procedures Referred By Contac t Referred To Contact Diagnoses High risk medication use Procedures Lipid panel reflex to direct LDL Fasting Shaan Ramirez MD [address] [place] [address] Referral ID Status Reason Start Date Expiration Date V isits Requested Visits Authorized [id number] Pending Review 01/14/2024 01/13/2025 1 1 Reason for Visit * Reason Comments Iritis Follow Up Encounter Details Date Type Department Care Team (Late st Contact Info) Description 01/14/2024 10:00 AM CDT Office Visit [facility] [place] [id number] [facility] 9th Fl Clin [address] [place] [address] Shaan Ramirez MD [address] [place] [address] Recurrent iritis, bilateral (Primary Dx); Intermediate uveitis [...] * Patient Instructions* Shaan Ramirez MD - 01/14/2024 10:00 AM CDT Recommend additional testing today at [facility]. We can ask them not to do the lipid panel as you have had breakfast. Please ask them to do these tests today and not do the ones from Dr. Cisneros so they don't get duplicated:They should only do ones ordered today: ESR, CRP, Hep B Core, Hep B Surface Ag, Hep C, CBC, CMP. We printed the Lipid Cholesterol test so you can get done fasting in [place] Continue these medications all unchanged: Xeljanz 5 mg twice daily, Oral methotrexate 5 tabs weekly, Folic acid daily No eye drops or other new medications today. documented in this encounter Progress Notes * Shaan Ramirez MD - 01/14/2024 10:00 AM CDT Chief Complaint/Presenting Concern: Uveitis follow up Interval History of Present Ocular Illness: Amelia Sr is a 48 year old patient who returns for follow up of her intermediate uveitis. Last visit there was only inflammation and we supported the plan to continue methotrexate without Humira. Amelia notes things are doing okay with the eyes. As below, now on Xeljanz and methotrexate. Interval Updates to Medical/Family/Social History: Some day time fatigue which got better after some medications were modified. Now with modified doses of mental health medications and this is much better! Xeljanz was also held for a while and has been back on for the last month 2. 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 Relevant Review of Systems Updates: Ears are better. No sores but some painful itching regarding Hidradenitis. Labs: 09/2023: Negative Quantiferon Current eye related medications: Back on Xeljanz 5 mg twice daily, Oral methotrexate 5 tabs weekly,Folic acid daily Retina/Uveitis Imaging: OCT Spectralis Macula January 14, 2024 right eye: Normal contour, no fluid. No NFL Thickening, no PP fluid left eye: : Normal contour, no fluid. No NFL Thickening, no PP fluid Assessment 1. Recurrent iritis, bilateral No active inflammation in either eye 2. Intermediate uveitis of both eyes Remains inactive 3. Cystoid macular edema of both eyes None in either eye 4. High risk medication use Back on Xeljanz 5 mg twice daily (at least the last month), Oral methotrexate 5 tabs weekly, Folic acid daily Plan/Recommendations: Discussed findings with patient. The eyes are doing well without active inflammation in the front nor back of either eye and no macular edema. The medications have been well tolerated in this combination and can be continued without modification Eye pressure is normal in each eye and this can be monitored. Recommend additional testing today at [facility]. We can ask them not to do the lipid panel as you have had breakfast. Please ask them to do these tests today and not do the ones from Dr. Cisneros so they don't get duplicated:They should only do ones ordered today: ESR, CRP, Hep B Core, Hep B Surface Ag, Hep C, CBC, CMP. We printed the Lipid Cholesterol test so you can get done fasting in [place] Continue these medications all unchanged: Xeljanz 5 mg twice daily, Oral methotrexate 5 tabs weekly, Folic acid daily No eye drops or other new medications today. RTC [facility] Lab today. Late May-early June. marita Maciel, OCT (ordered) Physician Attestation Attending Physician Attestation: [...] Shaan Ramirez M.D., Uveitis and Medical Retina, January 14, 2024 documented in this encounter Nursing Notes * Mirta Aguilar - 01/14/2024 10:00 AM CDT Chief Complaints and History of Present Illnesses Patient presents with Iritis Follow Up Chief Complaint(s) and History of Present Illness(es) Iritis Follow Up Laterality: both eyes Onset: gradual Onset: months ago Quality: States va is the same since last visit Severity: moderate Frequency: intermittently Associated symptoms: floaters. Negative for dryness, redness, tearing, photophobia and flashes Pain scale: 0/10 Comments Here for recurrent iritis, bilateral Xeljanz Methotrexate Folic acid .mmw documented in this encounter Plan of Treatment Upcoming Encounters Date Type Department Care Team (Late st Contact Info) Description 06/02/2024 10:00 AM CDT Office Visit [facility] [place] [phone] [facility] Clin [address] [place] [address] Shaan Ramirez MD [address] [place] [address] 08/01/2024 8:00 AM TRANSCRIPTIONIST Virtual Visit [facility] [address] [address] Adria Cisneros MD [address] [place] [address] documented as of this encounter Procedures Procedure Name Priority Date/Time Associated Diagnosis Comments OCT RETINA SPECTRALIS OU (BOTH EYE) Routine 01/14/2024 10:33 AM CDT Cystoid macular edema of both eyes documented in this encounter Results * (ABNORMAL) Comprehensive metabolic panel (01/14/2024 11:14 AM CDT) Sodium 137 135 - 145 mmol/L 01/14/2024 11:39 AM CDT [facility] Comment:Reference intervals for this test were updated on 05/01/2023 to more accurately reflect our healthy population. There may be differences in the flagging of prior results with similar values performed with this method. Interpretation of those prior results can be made in the context of the updated reference intervals. Potassium 4.3 3.4 - 5.3 mmol/L 01/14/2024 11:39 AM CDT [facility] Carbon Dioxide (CO2) 22 22 - 29 mmol/L 01/14/2024 11:39 AM CDT [facility] Anion Gap 11 7 - 15 mmol/L 01/14/2024 11:39 AM CDT [facility] Urea Nitrogen 10.4 6.0 - 20.0 mg/dL 01/14/2024 11:39 AM CDT [facility] Creatinine 0.80 0.51 - 0.95 mg/dL 01/14/2024 11:39 AM CDT [facility] GFR Estimate >90 >60 mL/min/1. 73m2 01/14/2024 11:39 AM CDT [facility] Calcium 9.6 8.6 - 10.0 mg/dL 01/14/2024 11:39 AM CDT [facility] Chloride 104 98 - 107 mmol/L 01/14/2024 11:39 AM CDT [facility] Glucose 99 70 - 99 mg/dL 01/14/2024 11:39 AM CDT [facility] Alkaline Phosphatase 66 40 - 150 U/L 01/14/2024 11:39 AM CDT [facility] AST 33 0 - 45 U/L 01/14/2024 11:39 AM CDT [facility] Comment:Reference intervals for this test were updated on 01/15/2023 to more accurately reflect our healthy population. There may be differences in the flagging of prior results with similar values performed with this method. Interpretation of those prior results can be made in the context of the updated reference intervals. ALT 45 0 - 50 U/L 01/14/2024 11:39 AM CDT [facility] Comment:Reference intervals for [...] - 8.3 g/dL 01/14/2024 11:39 AM CDT [facility] Albumin 4.2 3.5 - 5.2 g/dL 01/14/2024 11:39 AM CDT [facility] Bilirubin Total 1.3(H) <=1.2 mg/dL 01/14/2024 11:39 AM CDT [facility] Patient Fasting > 8hrs? No 01/14/2024 11:39 AM CDT [facility] Blood STRUCTURE OF LEFT HAND / Unknown Venipuncture / Unknown 01/14/2024 11:14 AM CDT 01/14/2024 11:14 AM CDT Shaan Ramirez MD LAB - BLOOD ORD ERABLES [facility] [place] [address] [facility] 1st [place] [address] * Erythrocyte sedimentation rate auto (01/14/2024 11:14 AM CDT) Erythrocyte Sedimentation Rate 11 0 - 20 mm/hr 01/14/2024 11:37 AM CDT [facility] Blood STRUCTURE OF LEFT HAND / Unknown Venipuncture / Unknown 01/14/2024 11:14 AM CDT 01/14/2024 11:14 AM CDT Shaan Ramirez MD LAB - BLOOD ORD ERABLES [facility] - [address] [place] [address] * OCT Retina Spectralis OU (both eyes) [...] documented as of this encounter Care Teams Bicycle Fitter Relationship Specialty Start Date End Date Luis Ambriz MD [address] [place] [address] PCP - General Family Medicine 02/16/22 Bola Amor, DESK ASSISTANT, LADC [address] [facility] [address] [place] [address] Assigned Behavioral Health Provider 12/04/21 Shaan Ramirez MD [address] [place] [address] Assigned Surgical Provider 12/04/[address] MD [address] [place] [address] Assigned Rheumatology Provider 02/25/22 Nini Patten MD [address] [place] [address] Endocrinology, Diabetes, and Metabolism 08/29/22 Nini Patten MD [address] [place] [address] Assigned Endocrinology Provider 01/20/23 Margaret Reyes, [facility] Pharmacist 08/10/23 Adria Cisneros MD [address] [place] [address] Rheumatology 11/09/23 Adria Cisneros MD [address] [place] [address] Rheumatology 11/09/23 documented as of this encounter
--- OUTSIDE RECORDS SUMMARY | 2024-01-24 09:08 | XMS_ITS | Encounter Summary ---
Author Organization [facility] Address [address] [place] [address] Care Team Providers Care Cook Room Supervisor Name Role Phone ZuleymaBola [facility], [facility] Unavailable [phone] Shaan Ramirez MD Unavailable [phone] Luis Ambriz MD Primary Care Provider [phone] MD Unavailable [phone] Nini Patten MD Unavailable [phone] Nini Patten MD Unavailable [phone] Margaret Reyes [facility] Unavailable Unavailable Adria Cisneros MD Unavailable [phone] Adria Cisneros MD Unavailable [phone] Encounter Details Date Type Department Care Team (Late st Contact Info) Description 05/14/2023 [facility] [address] [address] Baljinder Friend Social History Tobacco Use Types Packs/Day Years [...] Description 06/02/2024 10:00 AM CDT Office Visit [facility] [address] [facility] [address] 9th Fl Clin [address] [place] [address] Shaan Ramirez MD [address] [place], [place] [phone] 08/01/2024 8:00 AM TOLL SETTLEMENT CLERK Virtual Visit [facility] [place] [address] [place] [phone] Adria Cisneros MD [address] [facility] [address] [place], [place] [phone] documented as of this encounter Visit Diagnoses Not on filedocumented in this encounter Additional Health Concerns Assessment Noted Time PHQ-9 Depression Total Score: 4 12/25/19 23 2:25 PM CDT documented as of this encounter Care Teams Cook Room Supervisor Relationship Specialty Start Date End Date Luis Ambriz MD [address] [place], [place] [id number] PCP - General Family Medicine 02/16/22 Bola Amor, INSURANCE LOSS CONTROL SURVEYOR, [facility] [address] [place] [address] [place] [address] Assigned Behavioral Health Provider 12/04/21 Shaan Ramirez MD [address] [place] [address] [id number] Assigned Surgical Provider 12/04/[address] MD [address] [place] [address] Assigned Rheumatology Provider 02/25/22 Nini Patten MD [address] [place] [address] Endocrinology, Diabetes, and Metabolism 08/29/22 Nini Patten MD [address] [place] [address] Assigned Endocrinology Provider 01/20/23 Margaret Reyes, [facility] 08/10/23 Adria Cisneros MD [address] [place] [address] Rheumatology 11/09/23 Adria Cisneros MD [address] [place] [address] Rheumatology 11/09/23 documented as of this encounter
--- OUTSIDE RECORDS SUMMARY | 2024-01-24 09:08 | XMS_ITS | Encounter Summary ---
Author Organization [place] Address [address] [place] [address] Care Team Providers Care Wader Boot Top Assembler Name Role Phone ZuleymaChristalromancamila Naranjo [facility], [facility] Unavailable [phone] Shaan Ramirez MD Unavailable [phone] Luis Ambriz MD Primary Care Provider [phone] MD Unavailable [phone] Nini Patten MD Unavailable [phone] Nini Patten MD Unavailable [phone] Margaret Reyes [facility] Unavailable Unavailable Adria Cisneros MD Unavailable [phone] Adria Cisneros MD Unavailable [phone] Reason for Visit * Reason Comments RECHECK Encounter Details Date Type Department Care Team (Late st Contact Info) Description 11/09/2023 9:00 AM CDT Virtual Visit [facility] Rheumatology Clinic [address] [address] Adria Cisneros MD [address] [place] [address] Long-term current use of tofacitinib (Primary Dx); Psoriasis; Intermediate uveitis of both eyes; Hidradenitis suppurativa Social History Tobacco Use Types Packs/Day Years [...] Mass Index 37.12 11/09/2023 9:03 AM CDT documented in this encounter Patient Instructions * Patient Instructions* Adria Cisneros MD - 11/09/2023 9:00 AM CDT Diagnosis: 1. Psoriasis, ears, active 2. Intermediate uveitis, cystoid macular edema: Improved, but incompletely controlled on methotrexate alone with topical therapy. 3. Hidradenitis Plan: 1. Continue tofacitinib 5 mg 1 tablet twice daily. Hold medication for high fever, cellulitis, other signs of infection. 2. Continue methotrexate 5 tablets (12.5 mg) once weekly. While on methotrexate and tofacitinib: -- Check blood tests every 3-4 months (AST/ALT, Albumin, CBC with platelets) -- Limit alcohol intake to 2 drinks weekly; use folate 1 mg daily. --Tylenol 500-1000 mg can be used as needed up to three times daily for nausea/headache associated with dosing. --fasting lipidpanel every 6 months 3. Follow-up with ophthalmology as recommended by Dr. Ramirez. documented in this encounter Progress Notes * Adria Cisneros MD - 11/09/2023 9:00 AM CDT Virtual Visit Details Type of service: Video Visit Originating Location (pt. Location): Home Distant Location (provider location): On-site Platform used for Video Visit: [place]ie Start 09 End 930 Rheumatology Clinic Visit Adria Cisneros M.D. Amelia Sr Date of : 1975 Age: [age] year old Date of Visit: 11/09/2023 Primary care provider: Luis Ambriz Reason for follow-up: High risk medication management/ recurrent inflammatory eye disease/ psoriasis Requesting physician: Shaan Ramirez MD Assessment & Plan: # Persistent/recurrent uveitis/iritis/cystoid macular edema # psoriasis, external ears # Hidradenitis suppurativa Patient relates stability of hidradenitis symptoms, and significant improvement in persistent psoriasis on the external auricles both ears. Flashing white light symptoms are still present, but less frequent. Video exam today shows resolution of former erythema with fine silvery scale over superior external auricles both sides. Data: lab work in January 2023 showed comprehensive metabolic panel, CBC, and sedimentation rate all normal or negative. Discussion: Ocular symptoms as well as psoriasis are already better controlled with combination methotrexate and tofacitinib (started September 2023) therapy. I recommend checking monitoring labs for CBC, creatinine, LFTs, fasting lipid panel, and continuing tofacitinib 5 mg twice daily. Continue low-dose methotrexate as an adjunct for management of psoriasis as well as iridocyclitis. # High risk medication use: --Risks and benefits of methotrexate and xeljanz discussed today to include infection, BM suppression, GI/hepatoxicity, malignancy among others. Patient knows not to consume ETOH. Patient knows drugsare not compatible with conception/. Patient is agreeable with continuing medication. Plan: 1. Continue tofacitinib 5 mg 1 tablet twice daily. Hold medication for high fever, cellulitis, other signs of infection. 2. Continue methotrexate 5 tablets (12.5 mg) once weekly. While on methotrexate and tofacitinib: -- Check blood tests every 3-4 months (AST/ALT, Albumin, CBC with platelets) -- Limit alcohol intake to 2 drinks weekly; use folate 1 mg daily. --Tylenol 500-1000 mg can be used as needed up to three times daily for nausea/headache associated with dosing. --fasting lipid panel every 6 months 3. Follow-up with ophthalmology as recommended by Dr. Ramirez. RTC 4 mos Adria Cisneros MD Staff Mechanical Expert, [facility] On the day of the encounter, a total of 31 minutes was spent in chart review, and in counseling andcoordination of care, regarding the patient's complex medical problem of psoriasis, hidradenitis suppurativa, and uveitis/cystoid macular edema. The longitudinal plan of care for the diagnosis(es)/condition(s) as documented were addressed during this visit. Due to the added complexity in care, I will continue to support Amelia in the subsequent management and with ongoing continuity of care. Orders Placed This Encounter Procedures Lipid panel reflex to direct LDL Fasting Subjective: Patient presents for follow-up. I last saw patient in follow-up of recurrent uveitis, psoriasis, and hidradenitis suppurativa on August 07, 2023. At that visit, eye disease was incompletely controlled on methotrexate monotherapy. Recommendation was to continue methotrexate, but to start tofacitinib. Bckgd: hx of recurrent/persistent iritis/intermediate uveitis, and cystoid macular edema who follows closely with Dr Ramirez of ophthalmology. 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 None was identified at hat time and again today by history/exam and review of serologies with negative/normal LEE, RF, ESR/CRP, HLA-B27, angiotensin converting enzyme, CCP, MPO, quant gold/Hep B/C/HIV. Interval history November 09, [address] Ramirez on September 24, 2023. Impression was of recurrent iritis, bilateral. Eyes were judged to be doing well with only minimal inflammation in the left eye, but retinal angiogram showed more inflammation compared to October 2022. Recommendation was to continue methotrexate, and to start Xeljanz. Today, she reports that she is doing well. She started tofacitinib in October 2023, she has used it since 10-03-23. No AE. Within 2-3 weeks, rash over her L outer ear started clearing. She still has flashing spots in L eye. She continues methotrexate 5 tabs (12.5) weekly. She has had sinus inflammation with occasioal PND and cough, but they have cleared in last few weeks. No further episodes of cellulitis. Last dose of Abx was 10-29-2023 Interval history August 07, 2023 Patient saw [...] been taking methotrexate 5 pills weekly. Interval history Interval History January 26, 2023 -saw Dr [...] TUBAL LIGATION Medications Current Outpatient Medications Medication Sig Dispense Refill ARIPiprazole (ABILIFY) 5 MG tablet Take 5 mg by mouth buPROPion (WELLBUTRIN XL) 300 MG 24 hr tablet Take 300 mg by mouth every morning CONCERTA 54 MG CR tablet folic acid (FOLVITE) 1 MG tablet Take 1 tablet (1 mg) by mouth daily 90 tablet 3 losartan (COZAAR) 25 MG tablet Take 25 mg by mouth metFORMIN (GLUCOPHAGE-XR) 500 MG 24 hr tablet TAKE 1 TO 2 TABLETS BY MOUTH DAILY methotrexate 2.5 MG tablet Take 5 tablets (12.5 mg) by mouth every 7 days 60 tablet 2 methylphenidate (RITALIN) 10 MG tablet Take 10 mg by mouth daily metoprolol succinate ER (TOPROL-XL) 50 MG 24 hr tablet Take 50 mg by mouth rosuvastatin (CRESTOR) 10 MG tablet Take 1 tablet by mouth daily at 2 pm Semaglutide, 1 MG/DOSE, (OZEMPIC) 4 MG/3ML pen Inject 1 mg Subcutaneous every 7 days 9 mL 1 spironolactone (ALDACTONE) 50 MG tablet Take 50 mg by mouth 2 times daily tofacitinib (XELJANZ) 5 MG tablet Take 1 tablet (5 mg) by mouth 2 times daily 60 tablet 3 venlafaxine (EFFEXOR-XR) 150 MG 24 hr capsule 225 mg Vitamin D3 (VITAMIN D, CHOLECALCIFEROL,) 25 mcg (1000 units) tablet Take 3 tablets by mouth daily No current facility-administered medications for this visit. Allergies Allergies Allergen Reactions Hydrocodone Hives and Itching Hydrocodone-Acetaminophen Hives and Itching Lavandula Latifolia Cough and Other (See Comments) Lavender Oil Cough Family History: mother with MS, dx 4 years before she . Started with optic neuritis. 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 Never smoker (father was). Never drug user. Rare ETOH use. with one son. Objective: Physical exam: There were no vitals taken for this visit. Sitting up unassisted NAD Sclera are clear auricular psoriatic plaques have resolved completely. Breathing comfortably on room air. No use [...] NITRITE, LEUKEST, RBCU, WBCU in the last [id number] hours. No results found for: ANAIGG, ANAP1, [...] documented in this encounter Nursing Notes * Ely Forte - 11/09/2023 9:00 AM CDT Is the patient currently in the state of [place]? YES Visit mode:VIDEO If the visit is dropped, the patient can be reconnected by: VIDEO VISIT: Send to e-mail at: [email or web address] Will anyone else be joining the visit? NO (If patient encounters technical issues they should call [phone]) How would you like to obtain your AVS? MyChart Are changes needed to the allergy or medication list? Pt stated no med changes Are refills needed on medications prescribed by this physician? Reason for visit: RECHALICIA Forte VVF documented in this encounter Plan of Treatment Upcoming Encounters Date Type Department Care Team (Late st Contact Info) Description 06/02/2024 10:00 AM CDT Office Visit [facility] Eye Clinic [facility] [address] [facility] [address] [place] [address] Shaan Ramirez MD [address] [place] [id number] 08/01/2024 8:00 AM VOLUNTEER FIREFIGHTER Virtual Visit [facility] Rheumatology Clinic [place] [address] [place] [address] Adria Cisneros MD [address] [place] [address] [id number] Scheduled Orders Name Type Priority Associated Diagnoses Orde r Schedule Lipid panel reflex to direct LDL Fasting Lab Routine Long-term current use of tofacitinib q 6 mos for 3 Occurrences starting 11/09/2023 until 11/08/2024 documented as of this encounter Visit Diagnoses Diagnosis Long-term current use of tofacitinib- Primary Psoriasis Other psoriasis Intermediate uveitis of both eyes Hidradenitis suppurativa Hidradenitis documented in this encounter Additional Health Concerns Assessment Noted Time PHQ-9 Depression Total Score: 4 12/25/19 23 2:25 PM CDT documented as of this encounter Care Teams Wader Boot Top Assembler Relationship Specialty Start Date End Date Luis Ambriz MD [address] [place] [address] PCP - General Family Medicine 02/16/22 Bola Amor, ASSEMBLER BILLIARD TABLE, [facility] [address] [address] Assigned Behavioral Health Provider 12/04/21 Shaan Ramirez MD [address] [place] [address] Assigned Surgical Provider 12/04/[address] MD [address] [place] [address] Assigned Rheumatology Provider 02/25/22 Nini Patten MD [address] [place] [address] Endocrinology, Diabetes, and Metabolism 08/29/22 Nini Patten MD [address] [place] [address] Assigned Endocrinology Provider 01/20/23 Margaret Reyes, [facility] Pharmacist 08/10/23 Adria Cisneros MD [address] [place] [address] Rheumatology 11/09/23 Adria Cisneros MD [address] [place] [address] Rheumatology 11/09/23 documented as of this encounter
--- OUTSIDE RECORDS SUMMARY | 2024-01-24 09:08 | XMS_ITS | Encounter Summary ---
Author Organization [place] Address [address] [place] [address] Care Team Providers Care Direct Marketing Specialist Name Role Phone ZuleymaBola [facility], [facility] Unavailable + [phone] Shaan Ramirez MD Unavailable [phone] Luis Ambriz MD Primary Care Provider [phone] MD Unavailable [phone] Nini Patten MD Unavailable [phone] Nini Patten MD Unavailable [phone] Margaret Reyes [facility] Unavailable Unavailable Adria Cisneros MD Unavailable [phone] Adria Cisneros MD Unavailable [phone] Encounter Details Date Type Department Care Team (Latest Contact Info) Description 01/14/2024 Travel Social History Tobacco Use Types Packs/Day [...] Description 06/02/2024 10:00 AM CDT Office Visit [facility] [place] [facility] [address] [facility] 9[address] Clin [address] [place] [address] Shaan Ramirez MD 6 [place] [address] 08/01/2024 8:00 AM SPARE PERSON Virtual Visit [facility] Rheumatology Clinic [place] [address] [place] [phone] Adria Cisneros MD [address] 847[address] documented as of this encounter Visit Diagnoses Not on filedocumented in this encounter Additional Health Concerns Assessment Noted Time PHQ-9 Depression Total Score: 4 12/25/19 23 2:25 PM CDT documented as of this encounter Care Teams Direct Marketing Specialist Relationship Specialty Start Date End Date Luis Ambriz MD [address] [place] [address] PCP - General Family Medicine 02/16/22 Bola Amor, [facility], [facility] [address] [facility] [address] [address] Assigned Behavioral Health Provider 12/04/21 Shaan Ramirez MD [address] [place] [address] Assigned Surgical Provider 12/04/[address] MD [address] [place] [address] Assigned Rheumatology Provider 02/25/22 Nnii Patten MD [address] [place] [address] Endocrinology, Diabetes, and Metabolism 08/29/22 Nini Patten MD [address] [place] [address] Assigned Endocrinology Provider 01/20/23 Margaret Reyes, [facility] 08/10/23 Adria Cisneros MD [address] [place] [address] Rheumatology 11/09/23 Adria Cisneros MD [address] [place] [address] Rheumatology 11/09/23 documented as of this encounter
--- OUTSIDE RECORDS SUMMARY | 2024-01-24 09:08 | XMS_ITS | Encounter Summary ---
Author Organization [place] Address [address] [place] [address] Care Team Providers Care Solid Waste Collection Worker Name Role Phone ZuleymaBola [facility], [facility] Unavailable [phone] Shaan Ramirez MD Unavailable [phone] Luis Ambriz MD Primary Care Provider [phone] MD Unavailable [phone] Nini Patten MD Unavailable [phone] Nini Patten MD Unavailable [phone] Margaret Reyes [facility] Unavailable Unavailable Adria Cisneros MD Unavailable [phone] Adria Cisneros MD Unavailable [phone] Encounter Details Date Type Department Care Team (Late Contact Info) Description 07/06/2023 [facility] Orthopedic Clinic [address] 4th [place] [address] [facility] Social History Tobacco Use Types Packs/Day [...] Department Care Team (Late Contact Info) Description 06/02/2024 10:00 AM CDT Office Visit [facility] Eye Clinic - [facility] [address] [facility] 9[address] Clin [address] [place] [address] Shaan Ramirez MD 516 [place] [address] 08/01/2024 8:00 AM PERFECT BINDER SETTER Virtual Visit [facility] Rheumatology Clinic [place] 909 [place] [phone] Adria Cisneros MD [address] [address] documented as of this encounter Visit Diagnoses Not on filedocumented in this encounter Additional Health Concerns Assessment Noted Time PHQ-9 Depression Total Score: 4 12/25/19 23 2:25 PM CDT documented as of this encounter Care Teams Solid Waste Collection Worker Relationship Specialty Start Date End Date Luis Ambriz MD [address] [place] [address] 029335 PCP - General Family Medicine 02/16/22 Bola Amor, STRATEGIC DEBRIEFING OFFICER, [facility] [address] [facility] [address] [place], [place] 711745 Assigned Behavioral Health Provider 12/04/21 Shaan Ramirez MD [address] [place] [address] 816815 Assigned Surgical Provider 12/04/[address] MD 420 [place], [place] 896075 Assigned Rheumatology Provider 02/25/22 Nini Patten MD 909 [place] [address] Endocrinology, Diabetes, and Metabolism 08/29/22 Nini Patten MD [address] [place] [address] Assigned Endocrinology Provider 01/20/23 Margaret Reyes, [facility] 08/10/23 Adria Cisneros MD [address] [place] [address] 444805 Rheumatology 11/09/23 Adria Cisneros MD [address] [place] [address] Rheumatology 11/09/23 documented as of this encounter
--- OUTSIDE RECORDS SUMMARY | 2024-01-24 09:08 | XMS_ITS | Encounter Summary ---
Author Organization [place] Address [address] [place] [address] Care Team Providers Care Print Traffic Manager Name Role Phone ZuleymaBola [facility], [facility] Unavailable + [phone] Shaan Ramirez MD Unavailable [phone] Luis Ambriz MD Primary Care Provider [phone] MD Unavailable [phone] Nini Patten MD Unavailable [phone] Nini Patten MD Unavailable [phone] Margaret Reyes [facility] Unavailable Unavailable Adria Cisneros MD Unavailable [phone] Adria Cisneros MD Unavailable [phone] Encounter Details Date Type Department Care Team (Late st Contact Info) Description 12/11/2023 [facility] Rheumatology Clinic [address] [address] Margaret Reyes, [facility] Social History Tobacco Use Types Packs/Day Years [...] Description 06/02/2024 10:00 AM CDT Office Visit [facility] - [facility] [address] [facility] [address] [place] [address] Shaan Ramirez MD 6 [place], [place] 814[address] 08/01/2024 8:00 AM CRITICAL POWER TECHNICIAN Virtual Visit [facility] Rheumatology [facility] [address] [place] [phone] Adria Cisneros MD [address] [place] [address], [place] 778745 documented as of this encounter Visit Diagnoses Not on filedocumented in this encounter Additional Health Concerns Assessment Noted Time PHQ-9 Depression Total Score: 4 12/25/19 23 2:25 PM CDT documented as of this encounter Care Teams Print Traffic Manager Relationship Specialty Start Date End Date Luis Ambriz MD [address] [place] [address] PCP - General Family Medicine 02/16/22 Bola Amor, EAR MOLD LABORATORY TECHNICIAN, [facility] [address] [facility] [address] [place] [address] Assigned Behavioral Health Provider 12/04/21 Shaan Ramirez MD [address] [place] [address] 916515 Assigned Surgical Provider 12/04/[address] MD 420 [place], [place] 831915 Assigned Rheumatology Provider 02/25/22 Nini Patten MD [address] [place] [address] Endocrinology, Diabetes, and Metabolism 08/29/22 Nini Patten MD 9 [place] [address] Assigned Endocrinology Provider 01/20/23 Margaret Reyes, [facility] 08/10/23 Adria Cisneros MD [address] [place] [address] Rheumatology 11/09/23 Adria Cisneros MD [address] [place] [address] Rheumatology 11/09/23 documented as of this encounter
--- OUTSIDE RECORDS SUMMARY | 2024-01-24 09:08 | XMS_ITS | Encounter Summary ---
Author Organization [place] Address [address] [place] [address] Care Team Providers Care Armored Truck Driver Name Role Phone ZuleymaBola [facility], [facility] Unavailable [phone] Shaan Ramirez MD Unavailable [phone] Luis Ambriz MD Primary Care Provider [phone] MD Unavailable [phone] Nini Patten MD Unavailable [phone] Nini Patten MD Unavailable [phone] [facility] Unavailable Unavailable Adria Cisneros MD Unavailable [phone] Adria Cisneros MD Unavailable [phone] Encounter Details Date Type Department Care Team (Late st Contact Info) Description 04/10/2023 [facility] Medical [facility] Endocrinology Clinic [address] [address] Nini Patten MD [address] [place] [address] Social History Tobacco Use Types Packs/Day [...] Description 06/02/2024 10:00 AM CDT Office Visit [facility] Eye Clinic [facility] [address] [facility] 9[address] Clin [address] [place] [address] Shaan Ramirez MD 6 [place], [place] 474[address] 08/01/2024 8:00 AM CERTIFIED COATINGS INSPECTOR Virtual Visit [facility] Rheumatology Clinic [place] [address] [place] [phone] Adria Cisneros MD [address] [place] [address] 88 [place], [place] 968975 documented as of this encounter Visit Diagnoses Not on filedocumented in this encounter Additional Health Concerns Assessment Noted Time PHQ-9 Depression Total Score: 4 12/25/19 23 2:25 PM CDT documented as of this encounter Care Teams Armored Truck Driver Relationship Specialty Start Date End Date Luis Ambriz MD [address] [place] [address] PCP - General Family Medicine 02/16/22 Bola Amor, SELLING SPECIALIST, [facility] [address] [place] [address] [place], [place] 566195 Assigned Behavioral Health Provider 12/04/21 Shaan Ramirez MD [address] [place] [address] 130885 Assigned Surgical Provider 12/04/[address] MD 420 [place] [address] Assigned Rheumatology Provider 02/25/22 Nini Patten MD [address] [place] [address] Endocrinology, Diabetes, and Metabolism 08/29/22 Nini Patten MD [address] [place] [address] Assigned Endocrinology Provider 01/20/23 Margaret Reyes, [facility] 08/10/23 Adria Cisneros MD [address] [place] [address] Rheumatology 11/09/23 Adria Cisneros MD [address] [place] [address] Rheumatology 11/09/23 documented as of this encounter
--- OUTSIDE RECORDS SUMMARY | 2024-01-24 09:08 | XMS_ITS | Encounter Summary ---
Author Organization [place] Address [address] [place] [address] Care Team Providers Care Manager Domestic Name Role Phone ZuleymaBola [facility], [facility] Unavailable + [phone] Shaan Ramirez MD Unavailable [phone] Luis Ambriz MD Primary Care Provider [phone] MD Unavailable [phone] Nini Patten MD Unavailable [phone] Nini Patten MD Unavailable [phone] Margaret Reyes [facility] Unavailable Unavailable Adria Cisneros MD Unavailable [phone] Adria Cisneros MD Unavailable [phone] Encounter Details Date Type Department Care Team (Late st Contact Info) Description 08/05/2023 External Order Results [facility] [address] [place] [address] Outside, Provider Social History Tobacco Use Types [...] Description 06/02/2024 10:00 AM CDT Office Visit [facility] [address] [facility] [address] 9th Fl Clin 9A [place] [phone] Shaan Ramirez MD 6 [place], [place] 640875 08/01/2024 8:00 AM TAX STAFF ACCOUNTANT Virtual Visit [facility] [place] 9[address] [place] [phone] Adria Cisneros MD 515 [facility] [address] [place] [address] documented as of this encounter Procedures Procedure Name Priority Date/Time Associated Diagnosis Comments CBC WITH PLATELETS & DIFFERENTIAL Routine 08/05/2023 2:44 PM TAX STAFF ACCOUNTANT ERYTHROCYTE SEDIMENTATION RATE AUTO Routine 08/05/2023 2:44 PM TAX STAFF ACCOUNTANT CRP INFLAMMATION Routine 08/05/2023 2:44 PM TAX STAFF ACCOUNTANT COMPREHENSIVE METABOLIC PANEL Routine 08/05/2023 2:44 PM TAX STAFF ACCOUNTANT documented in this encounter Results * (ABNORMAL) Comprehensive metabolic panel (08/05/2023 2:44 PM TAX STAFF ACCOUNTANT) Sodium (External) 139 135 - 149 mmol/L [...] BLOOD SPECIMEN / Unknown 08/05/2023 2:44 PM TAX STAFF ACCOUNTANT Narrative [facility]ZE PFT - 08/08/2023 10:56 AM TAX STAFF ACCOUNTANT Verified by Hilario Stevenson on 08/08/2023. Provider Outside LAB - BLOOD ORDERABL ES [facility] NON-INTERFACED (ONBASE SCANS) * (ABNORMAL) CRP inflammation (08/05/2023 2:44 PM TAX STAFF ACCOUNTANT) CRP Inflammation (External) <0.5(L) 0.5 - 1.0 mg/dL NON-INTERFACE D (ONBASE SCANS) Blood BLOOD SPECIMEN / Unknown 08/05/2023 2:44 PM TAX STAFF ACCOUNTANT Narrative BREEZE PFT - 08/08/2023 10:56 AM TAX STAFF ACCOUNTANT Verified by Hilario Stevenson on 08/08/2023. Provider Outside LAB - BLOOD ORDERABL ES [facility] PFT NON-INTERFACED (ONBASE SCANS) * Erythrocyte sedimentation rate auto (08/05/2023 2:44 PM TAX STAFF ACCOUNTANT) ESR (External) 7 2 - 20 mm/hr NON-INTERFACED (ONBASE SCANS) Blood BLOOD SPECIMEN / Unknown 08/05/2023 2:44 PM TAX STAFF ACCOUNTANT Narrative [facility] PFT - 08/08/2023 10:56 AM TAX STAFF ACCOUNTANT Verified by Hilario Stevenson on 08/08/2023. Provider Outside LAB - BLOOD ORDERABL ES [facility] PFLauro NON-INTERFACED (ONBASE SCANS) * CBC with Platelets & Differential (08/05/2023 2:44 PM TAX STAFF ACCOUNTANT) Pathologist [facility] WBC Count (External) 5.07 4.50 - 11.00 [...] BLOOD SPECIMEN / Unknown 08/05/2023 2:44 PM TAX STAFF ACCOUNTANT Narrative WO[facility] PFT - 08/08/2023 10:56 AM TAX STAFF ACCOUNTANT Verified by Hilario Stevenson on 08/08/2023. Provider Outside LAB - BLOOD ORDERABL ES [facility] PFT NON-INTERFACED (ONBASE SCANS) documented in this encounter Visit Diagnoses Not on filedocumented in this encounter Additional Health Concerns Assessment Noted Time PHQ-9 Depression Total Score: 4 12/25/19 23 2:25 PM CDT documented as of this encounter Care Teams Manager Domestic Relationship Specialty Start Date End Date Luis Ambriz MD [address] [place] [address] 105215 PCP - General Family Medicine 02/16/22 Bola Amor, TEXTILE COLORIST FORMULATOR, [facility] [address] [place] [address] [place], [place] [address]755 Assigned Behavioral Health Provider 12/04/21 Shaan Ramirez MD [address] [place] [address] 875145 Assigned Surgical Provider 12/04/[address] MD 420 [place] [address] Assigned Rheumatology Provider 02/25/22 Nini Patten MD [address] [place], [place] 323805 Endocrinology, Diabetes, and Metabolism 08/29/22 Nini Patten MD [address] [place], [place] 623845 Assigned Endocrinology Provider 01/20/23 Margaret Reyes, [facility] 08/10/23 Adria Cisneros MD [address] [place] [address] Rheumatology 11/09/23 Adria Cisneros MD [address] [address] Rheumatology 11/09/23 documented as of this encounter
--- OUTSIDE RECORDS SUMMARY | 2024-01-24 09:08 | XMS_ITS | Encounter Summary ---
Author Organization [place] Address [address] [place] [address] Care Team Providers Care Curer Foam Rubber Name Role Phone ZuleymaBola [facility], [facility] Unavailable [phone] Shaan Ramirez MD Unavailable [phone] Luis Ambriz MD Primary Care Provider [phone] MD Unavailable [phone] Nini Patten MD Unavailable [phone] Nini Patten MD Unavailable [phone] Margaret Reyes [facility] Unavailable Unavailable Adria Cisneros MD Unavailable [phone] Adria Cisneros MD Unavailable [phone] Encounter Details Date Type Department Care Team (Late st Contact Info) Description 01/15/2023 [facility] [address] [address] Nini Patten MD [address] [place] [address] Social History Tobacco Use Types Packs/Day [...] Description 06/02/2024 10:00 AM CDT Office Visit [facility] [address] [facility] 9th Or Clin 9A [place] [address] Shaan Ramirez MD 6 [place], [place] 648965 08/01/2024 8:00 AM FILTER WASHER Virtual Visit [facility] Rhe[facility]ology [facility] [place] 909 [place] [phone] Adria Cisneros MD [address] [place] [address] 88 [place], [place] 869375 documented as of this encounter Visit Diagnoses Not on filedocumented in this encounter Additional Health Concerns Assessment Noted Time PHQ-9 Depression Total Score: 4 12/25/19 23 2:25 PM CDT documented as of this encounter Care Teams Curer Foam Rubber Relationship Specialty Start Date End Date Luis Ambriz MD [address] [place] [address] PCP - General Family Medicine 02/16/22 Bola Amor, TINSEL MACHINE OPERATOR, [facility] [address] [place] [address] [place], [place] 570145 Assigned Behavioral Health Provider 12/04/21 Shaan Ramirez MD [address] [place] [address] Assigned Surgical Provider 12/04/[address] MD [address] [place] [address] Assigned Rheumatology Provider 02/25/22 Nini Patten MD [address] [place] [address] Endocrinology, Diabetes, and Metabolism 08/29/22 Nini Patten MD [address] [place] [address] Assigned Endocrinology Provider 01/20/23 Margaret Reyes, [facility] 08/10/23 Adria Cisneros MD [address] [place] [address] Rheumatology 11/09/23 Adria Cisneros MD [address] [place] [address] 063305 Rheumatology 11/09/23 documented as of this encounter
--- OUTSIDE RECORDS SUMMARY | 2024-01-24 09:08 | XMS_ITS | Encounter Summary ---
Author Organization [place] Address [address] [place] [address] Care Team Providers Care Ethanol Operations Manager Name Role Phone ZuleymaBola [facility] Unavailable [phone] Shaan Ramirez MD Unavailable [phone] Luis Ambriz MD Primary Care Provider [phone] MD Unavailable [phone] Nini Patten MD Unavailable [phone] Nini Patten MD Unavailable [phone] Margaret Reyes [facility] Unavailable Unavailable Adria Cisneros MD Unavailable [phone] Adria Cisneros MD Unavailable [phone] Reason for Visit * Reason Comments Medication Therapy Management Encounter Details Date Type Department Care Team (Late st Contact Info) Description 01/09/2024 9:00 AM CDT Virtual Visit [facility]ology [facility] [address] [address] Adria Cisneros MD [address] [place] [address] Margaret Reyes [facility] Hidradenitis suppurativa (Primary Dx); Intermediate uveitis of both eyes; Psoriasis; Vaccine counseling Social History Tobacco Use Types Packs/Day Years [...] encounter Patient Instructions * Patient Instructions* Margaret Reyes RPH - 01/09/2024 9:00 AM CDT Recommendations from today's MTM visit: Please have your standing labs updated for disease and medication monitoring. Continue Xeljanz 5 mg twice daily. Continue methotrexate 12.5 mg weekly. Continue folic acid 1 mg daily. Continue to consider the following vaccines: COVID booster, PCV20 (pneumonia), Td (tetanus), and Shingrix (shingles). Follow-up: Monitor for lab draw/results, then 6 months routine follow up. It was great speaking with you today. I value your experience and would be very thankful for your time in providing feedback in our clinic survey. In the next few days, you may receive an email or text message from [facility] [employer] with a link to a survey related to your ???clinical pharmacist. To schedule another MTM appointment, please call the clinic directly or you may call the MTM scheduling line at [phone] or toll-free at . My Clinical Pharmacist's contact information: Please feel free to contact me with any questions or concerns you have. Margaret Reyes, PharmD Medication Therapy Management Pharmacist [facility] documented in this encounter Progress Notes * Margaret Reyes RPH - 01/09/2024 9:00 AM CDT Medication Therapy Management (MTM) Encounter ASSESSMENT: Medication Adherence/Access: No issues reported. Hidradenitis suppurativa/psoriasis/uveitis: Patient's uveitis and psoriasis have improved on combination of Xeljanz + methotrexate. HS symptoms remain well- controlled as well. Does not report recurrent infections as with combination of Humira + methotrexate. Would benefit from continuing current therapy and having standing labs updated for medication monitoring as these have not been done since 07/2023. Vaccine counseling: Patient is indicated for COVID booster, PCV20, Td booster, and Shingrix per ACIP recommendations. PLAN: Please have your standing labs updated for disease and medication monitoring. Continue Xeljanz 5 mg twice daily. Continue methotrexate 12.5 mg weekly. Continue folic acid 1 mg daily. Continue to consider the following vaccines: COVID booster, PCV20 (pneumonia), Td (tetanus), and Shingrix (shingles). Follow-up: Monitor for lab draw/results, then 6 months routine follow up. SUBJECTIVE/OBJECTIVE: Amelia Sr is a 48 year old female called for a follow up visit from 08/10/23. She was referred to Adria Rahman MD. Now seeing Florence Rollins MD. Reason for visit: Xeljanz 3-4 month follow up. Had delay in medication start. Allergies/ADRs: Reviewed in chart Past Medical History: Reviewed in chart Tobacco: She reports that she has never smoked. She has never been exposed to tobacco smoke. She has never used smokeless tobacco. Alcohol: not assessed today Medication Adherence/Access: No issues reported. Hidradenitis suppurativa/psoriasis/uveitis: Xeljanz 5 mg twice daily Methotrexate 12.5 mg by mouth once weekly Folic acid 1 mg daily At August visit before Xeljanz was initiated, patient reported incompletely controlled uveitis andpsoriasis (flashing white lights in vision, psoriasis flaring on both ears). At that time her HS was stable. Started the Xeljanz in September 2023 after delay. Per OV 11/09/23, both uveitis and psoriasis were improved and no changes in HS. Previously failed Humira due to new eye inflammation even at every 7 days dosing. She does have a history of recurrent infections on Humira + methotrexate, mainlycellulitis from cat scratches. Has not had this issue with the Xeljanz + methotrexate. Not using any topicals at this time. She will have labs done soon. No labs updates since 08/05/23, provider requested standing labs following 11/09/23 visit Vaccine counseling: Patient is open to receiving recommended vaccines. Immunization History Administered Date(s) Administered COVID-19 Bivalent 18+ (Moderna) 10/19/2022 COVID-19 Monovalent 18+ (Moderna) 09/15/2020, 10/13/2020, 07/20/2021 Influenza (IIV3) PF 04/16/2014 Influenza Vaccine 18-64 (Flublok) 2019, 05/26/2022 Influenza Vaccine >6 months,quad, PF 07/03/2016, 08/07/2017, 05/16/2018, 04/14/2020 Influenza, seasonal, injectable, PF 06/16/2015 TDAP (Adacel,Boostrix) 01/01/2014, 06/18/2014 Today's Vitals: There were no vitals taken for this visit. I spent 10 minutes with this patient today. All changes were made via collaborative practice agreement with Florence Rollins MD. A copy of the visit note was provided to the patient's provider(s). A summary of these recommendations was sent via [employer]. Margaret Reyes, PharmD Medication Therapy Management Pharmacist [facility] Telemedicine Visit Details Type of service: Telephone visit Start Time: 0900 End Time: 09 Medication Therapy Recommendations No medication therapy recommendations to display documented in this encounter Plan of Treatment Upcoming Encounters Date Type Department Care Team (Late st Contact Info) Description 06/02/2024 10:00 AM CDT Office Visit [facility] [place] 118346 [facility] [address] [place] [address] Shaan Ramirez MD [address] [place] [address] 777965 08/01/2024 8:00 AM LONG DISTANCE OPERATOR Virtual Visit [facility]ology [facility] [place] 324299 [place] [phone] Adria Cisneros MD [address] [place] [address] documented as of this encounter Visit Diagnoses Diagnosis Hidradenitis suppurativa- Primary Hidradenitis Intermediate uveitis of both eyes Psoriasis Other psoriasis Vaccine counseling documented in this encounter Additional Health Concerns Assessment Noted Time PHQ-9 Depression Total Score: 4 12/25/19 23 2:25 PM CDT documented as of this encounter Care Teams Ethanol Operations Manager Relationship Specialty Start Date End Date Luis Ambriz MD [address] [place] [address] PCP - General Family Medicine 02/16/22 Bola Amor, [facility] [address] [place] [address] Assigned Behavioral Health Provider 12/04/21 Shaan Ramirez MD [address] [place] [address] Assigned Surgical Provider 12/04/[address] MD [address] [place] [address] 192605 Assigned Rheumatology Provider 02/25/22 Nini Patten MD [address] [place] [address] 131735 Endocrinology, Diabetes, and Metabolism 08/29/22 Nini Patten MD [address] [place] [address] 447895 Assigned Endocrinology Provider 01/20/23 Margaret Reyes, [facility] Pharmacist 08/10/23 Adria Cisneros MD [address] [place] [address] 834823 Rheumatology 11/09/23 Adria Cisneros MD [address] [place] [address] Rheumatology 11/09/23 documented as of this encounter
--- OUTSIDE RECORDS SUMMARY | 2024-01-24 09:08 | XMS_ITS | Encounter Summary ---
Author Organization [place] Address [address] [place] [address] Care Team Providers Care Crime Lab Technician Name Role Phone ZuleymaBola [facility] Unavailable + [phone] Shaan Ramirez MD Unavailable [phone] Luis Ambriz MD Primary Care Provider [phone] MD Unavailable [phone] Nini Patten MD Unavailable [phone] Nini Patten MD Unavailable [phone] Margaret Reyes [facility] Unavailable Unavailable Adria Cisneros MD Unavailable [phone] Adria Cisneros MD Unavailable [phone] Reason for Visit * Reason Onset Date Comments Lab Orders 01/11/2023 Fax to [facility] at [phone] Encounter Details Date Type Department Care Team (Latest Contact Info) Description 01/11/2023 [facility] Rheumatology Clinic [address] [address] MD Health [facility], Rheumatology [address] [place] [address] Lab Orders (Fax to [facility] at 50... Social History Tobacco Use Types [...] Lab orders have been successfully faxed to [facility] as requested. Confirmed via [employer]. Amber Orozco CMA 01/15/2023 10:41 AM documented in this encounter Plan of Treatment Upcoming Encounters Date Type Department Care Team (Late st Contact Info) Description 06/02/2024 10:00 AM CDT Office Visit [facility] - [address] [facility] [address] [place] [address] Shaan Ramirez MD [address] [place] [address] 08/01/2024 8:00 AM HEAVY MACHINERY OPERATOR Virtual Visit [facility] Rheumatology Clinic [address] [phone] Adria Cisneros MD [address] [place] [address] 129015 documented as of this encounter Visit Diagnoses Not on filedocumented in this encounter Additional Health Concerns Assessment Noted Time PHQ-9 Depression Total Score: 4 12/25/19 23 2:25 PM CDT documented as of this encounter Care Teams Crime Lab Technician Relationship Specialty Start Date End Date Luis Ambriz MD [address] [place] [address] PCP - General Family Medicine 02/16/22 Bola Amor, [facility] [address] [address] Assigned Behavioral Health Provider 12/04/21 Shaan Ramirez MD [address] [place] [address] Assigned Surgical Provider 12/04/[address] MD [address] [place] [address] Assigned Rheumatology Provider 02/25/22 Nini Patten MD [address] [place] [address] Endocrinology, Diabetes, and Metabolism 08/29/22 Nini Patten MD [address] [place] [address] Assigned Endocrinology Provider 01/20/23 Margaret Reyes, [facility] Pharmacist 08/10/23 Adria Cisneros MD [address] [place] [address] Rheumatology 11/09/23 Adria Cisneros MD [address] [place] [address] Rheumatology 11/09/23 documented as of this encounter
--- OUTSIDE RECORDS SUMMARY | 2024-01-24 09:08 | XMS_ITS | Encounter Summary ---
Author Organization [place] Address [address] [place] [address] Care Team Providers Care Dresser Tender Name Role Phone ZuleymaBola [facility] Unavailable [phone] Shaan Ramirez MD Unavailable [phone] Luis Ambriz MD Primary Care Provider [phone] MD Unavailable [phone] Nini Patten MD Unavailable [phone] Nini Patten MD Unavailable [phone] Margaret Reyes [facility] Unavailable Unavailable Adria Cisneros MD Unavailable [phone] Adria Cisneros MD Unavailable [phone] Encounter Details Date Type Department Care Team (Late st Contact Info) Description 05/02/2023 [facility] Endocr[facility]ology [facility] [address] [place] [address] [facility] Social History Tobacco Use Types Packs/Day Years [...] Description 06/02/2024 10:00 AM CDT Office Visit [facility] [address] [facility] 9 [address] Clin 9A [place] [address] Shaan Ramirez MD 516 [place] [address] 08/01/2024 8:00 AM SKIN WASHER Virtual Visit [facility] Rheumatology Clinic [place] 909 [place] [address] Adria Cisneros MD 515 [facility] 88 [place], [place] 813675 documented as of this encounter Visit Diagnoses Not on filedocumented in this encounter Additional Health Concerns Assessment Noted Time PHQ-9 Depression Total Score: 4 12/25/19 23 2:25 PM CDT documented as of this encounter Care Teams Dresser Tender Relationship Specialty Start Date End Date Luis Ambriz MD [address] [place] [address] 870055 PCP - General Family Medicine 02/16/22 Bola Amor, REGISTERED ASSOCIATE, [facility] [address] [facility] 180 [place], [place] 737075 Assigned Behavioral Health Provider 12/04/21 Shaan Ramirez MD [address] [place] [address] 473845 Assigned Surgical Provider 12/04/[address] MD 420 [place], [place] 719575 Assigned Rheumatology Provider 02/25/22 Nini Patten MD 909 [place] [address] Endocrinology, Diabetes, and Metabolism 08/29/22 Nini Patten MD [address] [place] [address] Assigned Endocrinology Provider 01/20/23 Margaret Reyes, [facility] 08/10/23 Adria Cisneros MD [address] [place] [address] 590435 Rheumatology 11/09/23 Adria Cisneros MD [address] [place] [address] Rheumatology 11/09/23 documented as of this encounter
--- OUTSIDE RECORDS SUMMARY | 2024-01-24 09:08 | XMS_ITS | Encounter Summary ---
Author Organization [place] Address [address] [place] [address] 78370 Care Team Providers Care Personnel Placement Specialist Name Role Phone Bola Amor Marcella [facility], [facility] Unavailable [phone] Ivna Bell MD Unavailable [phone] Luis Ambriz MD Primary Care Provider [phone] MD Unavailable [phone] Nini Patten MD Unavailable [phone] Nini Patten MD Unavailable [phone] Margaret Reyes [facility] Unavailable Unavailable Adria Cisneros MD Unavailable [phone] Adria Cisneros MD Unavailable [phone] Reason for Referral * (Routine) - Pending Review Specialty Diagnoses / Procedures Referred By Contac t Referred To Contact Diagnoses High risk medication use Procedures Lipid panel reflex to direct LDL Fasting Ivan Bell MD [address] [place] [address] 47771 Referral ID Status Reason Start Date Expiration Date V isits Requested Visits Authorized [id number] Pending Review 09/24/2023 09/23/2024 1 1 UIT INSTRUCTOR Reason for Visit * Reason Comments Uveitis Follow-Up Encounter Details Date Type Department Care Team (Late st Contact Info) Description 09/24/2023 10:30 AM RECRUIT INSTRUCTOR Office Visit [facility] Eye [address] 9th Fl Clin [address] [place] [address] Ivan Bell MD [address] [place] [address]26 Recurrent iritis, bilateral (Primary Dx); Intermediate uveitis [...] this encounter Patient Instructions * Patient Instructions* Ivan Bell MD - 09/24/2023 10:30 AM RECRUIT INSTRUCTOR Recommend additional testing. We printed new orders which were the equivalent of Dr. Cisneros's andyou can take these to [facility]. We consolidated into 9 orders total [...] soon No drops or other treatments needed UIT INSTRUCTOR documented in this encounter Progress Notes * Ivan Bell MD - 09/24/2023 10:30 AM CST Chief Complaint/Presenting Concern: Uveitis follow up Interval History of Present Ocular Illness: Amelia rS is a 48 year old patient who [...] Dr. Cisneros's andyou can take these to [facility]. We consolidated into 9 orders total [...] present at the time of this visit. Ivan Bell M.D., Uveitis and Medical Retina, September 24, 2023 UIT INSTRUCTOR documented in this encounter Nursing Notes * [...] Nathan COT 10:33 AM September 24, 2023 UIT INSTRUCTOR documented in this encounter Miscellaneous Notes * Addendum Note - Ivan Bell MD - 09/24/2023 10:30 AM CSTAddended by: IVAN BELL on: 01/14/2024 10:28 AM Modules accepted: Orders documented in this encounter Plan of Treatment Upcoming Encounters Date Type Department Care Team (Late st Contact Info) Description 06/02/2024 10:00 AM CDT Office Visit [facility] - [place] [facility] Building [address] [facility] 9th Fl Clin 9A [place] [address] Ivan Bell MD [address] [place] [address] 685265 08/01/2024 8:00 AM RECRUIT INSTRUCTOR Virtual Visit [facility] Rheumatology Clinic [place] 9[address] [place] [phone] Adria Cisneros MD [address] [place] [address] [phone] Scheduled Orders Name Type Priority Associated Diagnoses Orde r Schedule Lipid panel reflex to direct LDL Fasting Lab Routine High risk medication use Expected: 09/24/2023 (Approximate), Expires: 12/23/2023 documented as of this encounter Procedures Procedure Name Priority Date/Time Associated Diagnosis Comments FLUORESCEIN ANGIOGRAPHY OU (BOTH EYES) Routine 09/24/2023 12:23 PM RECRUIT INSTRUCTOR Intermediate uveitis of both eyes OCT RETINA SPECTRALIS OU (BOTH EYE) Routine 09/24/2023 12:23 PM RECRUIT INSTRUCTOR Intermediate uveitis of both eyes documented in this encounter Results * OCT Retina Spectralis OU (both eyes) (01/14/2024 10:33 AM CDT) Narrative Ivan Bell MD - 01/14/2024 10:33 AM CDT Performed [...] fluid. No NFL Thickening, no PP fluid Ivan Bell MD OPHTHALMOLOGY * Fluorescein Angiography OU (both eyes) (09/24/2023 12:23 PM RECRUIT INSTRUCTOR) Ivan Rocha MD - 09/24/2023 12:23 PM RECRUIT INSTRUCTOR Performed by: EG . Patient cooperation: Reliable [...] leakage. Peripheral leakage slightly increased versus 10/2022. Ivan Bell MD OPHTHALMOLOGY * OCT Retina Spectralis OU (both eyes) (09/24/2023 12:23 PM RECRUIT INSTRUCTOR) Ivan Rocha MD - 09/24/2023 12:23 PM RECRUIT INSTRUCTOR Performed by: EG . Patient cooperation: Reliable [...] fluid. Normal foveal contour, no fluid stable. Ivan Bell MD OPHTHALMOLOGY documented in this encounter Visit [...] documented as of this encounter Care Teams Personnel Placement Specialist Relationship Specialty Start Date End Date Luis Ambriz MD [address] [place] [address] 25633 PCP - General Family Medicine 02/16/22 Bola Amor, [facility], [facility] [address] [place] [address] 41289 Assigned Behavioral Health Provider 12/04/21 Ivan Bell MD [address] [place] [address] 95813 Assigned Surgical Provider 12/04/[address] MD [address] [place] [address] 82415 Assigned Rheumatology Provider 02/25/22 Nini Patten MD [address] [place] [address] Endocrinology, Diabetes, and Metabolism 08/29/22 Nini Patten MD [address] [place] [address] 18663 Assigned Endocrinology Provider 01/20/23 Margaret Reyes, [facility] Pharmacist 08/10/23 Adria Cisneros MD [address] [place] [address]222 Rheumatology 11/09/23 Adria Cisneros MD [address] [place] [address] 92718 Rheumatology 11/09/23 documented as of this encounter
--- OUTSIDE RECORDS SUMMARY | 2024-01-24 09:09 | XMS_ITS | Encounter Summary ---
Author Organization [place] Address [address] [place] [address] 10737 Care Team Providers Care Hardware Engineering Manager Name Role Phone ZuleymaBola [facility], [facility] Unavailable + [phone] Shaan Ramirez MD Unavailable [phone] Luis Ambriz MD Primary Care Provider [phone] MD Unavailable [phone] Nini Patten MD Unavailable [phone] Nini Patten MD Unavailable [phone] Margaret Reyes [facility] Unavailable Unavailable Adria Cisneros MD Unavailable [phone] Adria Cisneros MD Unavailable [phone] Encounter Details Date Type Department Care Team (Late st Contact Info) Description 02/24/2022 [facility] Medical Advice [facility] Rheumatology Clinic [address] [address] MD [facility], Rheumatology [address] [place] [address] Social History Tobacco Use Types Packs/Day Years [...] Description 06/02/2024 10:00 AM CDT Office Visit [facility] Eye Clinic [facility] [address] [facility] 9th Fl Clin 9A [place] [address] Shaan Ramirez MD 6 [place], [place] 884255 08/01/2024 8:00 AM BURIAL VAULT DELIVERER AND INSTALLER Virtual Visit [facility] Rheumatology Clinic [place] 909 [place] [phone] Adria Cisneros MD 515 [facility] [address] [place], [place] 466375 documented as of this encounter Visit Diagnoses Not on filedocumented in this encounter Additional Health Concerns Assessment Noted Time PHQ-9 Depression Total Score: 6 02/03/20 22 9:26 AM CDT documented as of this encounter Care Teams Hardware Engineering Manager Relationship Specialty Start Date End Date Luis Ambriz MD [address] [place] [address] PCP - General Family Medicine 02/16/22 Bola Amor, RECRUITMENT INTERN, [facility] [address] [place], [place] 532185 Assigned Behavioral Health Provider 12/04/21 Shaan Ramirez MD [address] [place] [address] 880335 Assigned Surgical Provider 12/04/[address] MD [address] [place] [address] Assigned Rheumatology Provider 02/25/22 Nini Patten MD 909 [place] [address] Endocrinology, Diabetes, and Metabolism 08/29/22 Nini Patten MD [address] [place], [place] 709845 Assigned Endocrinology Provider 01/20/23 Margaret Reyes, [facility] 08/10/23 Adria Cisneros MD [address] [place] [address] Rheumatology 11/09/23 Adria Cisneros MD [address] [address] Rheumatology 11/09/23 documented as of this encounter
--- OUTSIDE RECORDS SUMMARY | 2024-01-24 09:09 | XMS_ITS | Clinical Summary ---
Author Organization [facility] Address [address] [place] [address] Care Team Providers Care Slag Skimmer Name Role Phone No Contact, Pcp Primary Care Provider Unavailabl e Source Comments Patient records contain information from all sites at [facility]. For routine questions regarding patient records, call [phone] during business hours, M-F 8:00 AM - 5:00 PM Central Time. Record requests for emergency care only can be directed to [phone] at any time.[facility] Allergies Active Allergy Reactions Criticality Noted Date Comments Hydrocodone Hives (Reselect Reaction),Itching High 1 Lavender Oil Cough Medium 11/28/2014 Medications Medication Sig Dispensed Refills Start Date End Date Status ARIPiprazole (ABILIFY) 5 mg tablet Take 5 mg by mouth daily. 11/09/2021 Active blood sugar diagnostic (Accu-Chek Guide test strips) strips 1 each 4 (four) times a day. 08/01/2021 Active diclofenac sodium (VOLTAREN) 50 mg EC tablet Take 50 mg by mouth daily. 07/15/2021 Active folic acid 1 mg tablet Take 1 mg by mouth daily. 01/09/2022 Active metFORMIN XR (GLUCOPHAGE-XR) 500 mg 24 hr tablet Take 1,000 mg by mouth daily with breakfast. 07/29/2021 Active methylphenidate HCl (CONCERTA) 54 mg CR tablet Take 54 mg by mouth daily. 11/15/2021 Active methylphenidate HCl (RITALIN) 10 mg tablet Take 15 mg by mouth daily as needed. For ADHD 02/21/2022 Active metoprolol succinate (TOPROL-XL) 50 mg 24 hr tablet Take 50 mg by mouth daily. 04/27/2021 Active spironolactone (ALDACTONE) 50 mg tablet Take 50 mg by mouth 2 (two) times a day. 03/13/2019 Active venlafaxine XR (EFFEXOR-XR) 150 mg 24 hr capsule Take 150 mg by mouth daily with breakfast. 11/09/2021 Active diclofenac sodium (VOLTAREN) 1 % gel Apply 2-4 g topically 4 (four) times a day as needed for pain. To affected area 11/11/2018 Active UNABLE TO FIND Inject 1 each under the skin once a week. Med Name: Humira 40 mg every Sunday Active levoFLOXacin (LEVAQUIN) 750 mg tablet Take 1 tablet (750 mg total) by mouth at bedtime. 7 tablet 05/14/2022 Active ibuprofen (ADVIL,MOTRIN) 200 mg tablet Take 2 tablets (400 mg total) by mouth every 6 (six) hours for 2 days. 16 tablet 05/14/2022 Active Active Problems Problem Noted Date [...] 4 weeks, 5 x2 weeks, then stop. Major Depressive Disorder, Recurrent, Unspecifie d 06/12/2018 Personal History Of Physical And Sexual [...] Date Last Done Comments CT Colonography 1977 Cologuard 1977 Colonoscopy 1977 Colorectal Cancer Screening 1977 Depression Monitoring (PHQ-9) 1977 Diabetic Office Visit with Foot Exam 1977 Dilated Eye Exam 1977 FIT 1977 HIV Screening 1977 Hemoglobin A1C 1977 Hepatitis C Screening 1977 Mammogram 1977 Urine Albumin 1977 Pneumococcal vaccine (0-64 years) (1 of 2 - PCV) 1983 Hepatitis B Vaccines (1 of 3 - 19+ 3-dose series) 1996 Cervical Cancer Screening 07/21/2022 07/21/2019 COVID-19 Vaccine (5 - 2022-24 season) 2023 10/19/2022, 07/20/2021, 10/13/2020, Additional history exists Influenza Vaccine (#1) 2023 , 04/14/2020, 2019, Additional history exists Office Visit for Blood Pressure Check / Re-check 05/12/2023 05/12/2022 Lipid (Cholesterol) Screening 08/07/2023 08/07/2022, 07/14/2021, 06/28/2020 Creatinine Level (Kidney Function Test) 02/03/2024 02/02/2023, 05/14/2022, 05/13/2022, Additional history exists Potassium Level 02/03/2024 02/02/2023, 10/0 04/2022, 05/13/2022, Additional history exists Sodium Level 02/03/2024 02/02/2023, 10/0 04/2022, 05/13/2022, Additional history exists DTaP,Tdap,and Td Vaccines (3 - Td or Tdap) 06/18/2024 06/18/2014, 01/01/2014 HPV Vaccines Aged Out No longer eligi ble based on patient's age to complete this topic Procedures Procedure Name Priority Date/Time Associated Diagnosis Comments EXTI COMPREHENSIVE METABOLIC PANEL, S/P Routine 02/02/2023 11:45 AM CDT EXTI LIPID PANEL, S Routine 08/07/2022 1 0:04 AM DISC RULER OPERATOR from Last 3 Months or Most Recently Relevant to Health Maintenance Advance Directives For more information, please contact: [phone] * Full Code (Latest Code Status on File) Date Activated Date Inactivated Comments 05/14/2022 6:07 AM 05/14/2022 3:08 PM Question Answer Comments Full Code: Discussed Care Teams Slag Skimmer Relationship Specialty Start Date End Date No Contact, Pcp PCP - General Family Medicine 05/13/22
--- OUTSIDE RECORDS SUMMARY | 2024-01-24 09:09 | XMS_ITS | Encounter Summary ---
Author Organization [place] Address [address] [place] [address]21 Care Team Providers Care Pulp Making Plant Operator Name Role Phone ZuleymaBola [facility], [facility] Unavailable + [phone] Shaan Ramirez MD Unavailable [phone] Luis Ambriz MD Primary Care Provider [phone] MD Unavailable [phone] Nini Patten MD Unavailable [phone] Nini Patten MD Unavailable [phone] Margaret Reyes [facility] Unavailable Unavailable Adria Cisneros MD Unavailable [phone] Adria Cisneros MD Unavailable [phone] Encounter Details Date Type Department Care Team (Late st Contact Info) Description 12/22/[address] [address] [facility] Social History Tobacco Use Types Packs/Day Years [...] Description 06/02/2024 10:00 AM CDT Office Visit [facility] Eye [facility] [address] [facility] 9th Fl Clin 9[address] [place] [address] Shaan Ramirez MD 6 [place], [place] 8[address]855 08/01/2024 8:00 AM OPERATIONS SUPPORT SPECIALIST Virtual Visit [facility] Rheumatology [facility] 909 [place] [phone] Adria Cisneros MD 515 [facility] 88 [place], [place] 0[address] documented as of this encounter Visit Diagnoses Not on filedocumented in this encounter Additional Health Concerns Assessment Noted Time PHQ-9 Depression Total Score: 10 022 12:04 PM CDT documented as of this encounter Care Teams Pulp Making Plant Operator Relationship Specialty Start Date End Date Luis Ambriz MD [address] [place] [address]105 PCP - General Family Medicine 02/16/22 Bola Amor, MESSAGE CLERK, [facility] [address] [place] [address] Assigned Behavioral Health Provider 12/04/21 Shaan Ramirez MD [address] [place] [address] 243895 Assigned Surgical Provider 12/04/[address] MD 420 [place], [place] 280505 Assigned Rheumatology Provider 02/25/22 Nini Patten MD 909 [place] [address] Endocrinology, Diabetes, and Metabolism 08/29/22 Nini Patten MD [address] [place] [address] Assigned Endocrinology Provider 01/20/23 Margaret Reyes, [facility] Pharmacist 08/10/23 Adria Cisneros MD [address] [place] [address] Rheumatology 11/09/23 Adria Cisneros MD [address] [place] [address] Rheumatology 11/09/23 documented as of this encounter
--- OUTSIDE RECORDS SUMMARY | 2024-01-24 09:09 | XMS_ITS | Referral Summary ---
Author Organization [facility] Address [address] [place] [address] Care Team Providers Care Bouffant Curtain Machine Tender Name Role Phone No Contact, Pcp Primary Care Provider Unavailabl e Source Comments Patient records contain information from all sites at [facility]. For routine questions regarding patient records, call [phone] during business hours, M-F 8:00 AM - 5:00 PM Central Time. Record requests for emergency care only can be directed to [phone] at any time.[facility] Allergies Active Allergy Reactions Criticality [...] CDT Plan of Treatment Not on file Procedures Procedure Name Priority Date/Time Associated Diagnosis Comments EXTI COMPREHENSIVE METABOLIC PANEL, S/P Routine 02/02/2023 11:45 AM CDT EXTI LIPID PANEL, S Routine 08/07/2022 1 0:04 AM ENTERPRISE SYSTEMS ADMINISTRATOR from Last 3 Months or Most Recently Relevant to Health Maintenance Advance Directives For more information, please contact: [phone] * Full Code (Latest Code Status on File) Date Activated Date Inactivated Comments 05/14/2022 6:07 AM 05/14/2022 3:08 PM Question Answer Comments Full Code: Discussed Care Teams Bouffant Curtain Machine Tender Relationship Specialty Start Date End Date No Contact, Pcp PCP - General Family Medicine 05/13/22
--- OUTSIDE RECORDS SUMMARY | 2024-01-24 09:09 | XMS_ITS | Encounter Summary ---
Author Organization [place] Address [address] [place] [address] Care Team Providers Care Senior Underwriting Assistant Name Role Phone ZuleymaBola [facility], [facility] Unavailable [phone] Shaan Ramirez MD Unavailable [phone] Luis Ambriz MD Primary Care Provider [phone] MD Unavailable [phone] Nini Patten MD Unavailable [phone] Nini Patten MD Unavailable [phone] Margaret Reyes [facility] Unavailable Unavailable Adria Cisneros MD Unavailable [phone] Adria Cisneros MD Unavailable [phone] Encounter Details Date Type Department Care Team (Late st Contact Info) Description 12/12/2021 [facility] Medical Advice [facility] Eye [address] [place] [phone] Shaan Ramirez MD [address] [place] [address] 727295 Social History Tobacco Use Types Packs/Day Years [...] Description 06/02/2024 10:00 AM CDT Office Visit [facility] Clinic [facility] [address] [facility] 9th Fl Clin 9[address] [place] [address] Shaan Ramirez MD [address] [place] [address] 741165 08/01/2024 8:00 AM DEPUTY CLERK OF SUPERIOR COURT Virtual Visit [facility] Rheumatology Clinic [place] [address] [place] [address] Adria Cisneros MD 515 [facility] 88 [place], [place] 742075 documented as of this encounter Visit Diagnoses Not on filedocumented in this encounter Additional Health Concerns Assessment Noted Time PHQ-9 Depression Total Score: 10 022 12:04 PM CDT documented as of this encounter Care Teams Senior Underwriting Assistant Relationship Specialty Start Date End Date Luis Ambriz MD [address] [place] [address] 708365 PCP - General Family Medicine 02/16/22 Bola Amor, K 12 SCHOOL PRINCIPAL, [facility] [address] [facility] [address] [place], [place] 6[address] Assigned Behavioral Health Provider 12/04/21 Shaan Ramirez MD [address] [place] [address] 801495 Assigned Surgical Provider 12/04/[address] MD [address] [place] [address] Assigned Rheumatology Provider 02/25/22 Nini Patten MD [address] [place] [address] 197245 Endocrinology, Diabetes, and Metabolism 08/29/22 Nini Patten MD [address] [place] [address] 749645 Assigned Endocrinology Provider 01/20/23 Margaret Reyes, [facility] 08/10/23 Adria Cisneros MD [address] [place] [address] 460955 Rheumatology 11/09/23 Adria Cisneros MD [address] [place] [address] 791315 Rheumatology 11/09/23 documented as of this encounter
--- OUTSIDE RECORDS SUMMARY | 2024-01-24 09:09 | XMS_ITS | Encounter Summary ---
Author Organization [place] Address [address] [place] [address] Care Team Providers Care A P Supervisor Name Role Phone ZuleymaBola [facility], [facility] Unavailable + [phone] Shaan Ramirez MD Unavailable [phone] Luis Ambriz MD Primary Care Provider [phone] MD Unavailable [phone] Nini Patten MD Unavailable [phone] Nini Patten MD Unavailable [phone] Margaret Reyes [facility] Unavailable Unavailable Adria Cisneros MD Unavailable [phone] Adria Cisneros MD Unavailable [phone] Encounter Details Date Type Department Care Team (Late st Contact Info) Description 12/30/2021 External Order Results [facility] [address] [place] [phone] Outside, Provider High risk medication use Social [...] 06/02/2024 10:00 AM CDT Office Visit [facility] [place] 335586 [facility] 9 Fl Clin 9[address] [place] [phone] Shaan Ramirez MD [address] [place] [address] 776915 08/01/2024 8:00 AM COMMANDING OFFICER GARAGE Virtual Visit [facility] Rheumatology Clinic [place] 909 [place] [address] Adria Cisneros MD [address] [place] [address] [phone] documented as of this encounter Procedures Procedure [...] 01/06/2022. Provider Outside LABORATORY Performing Organization Address City/[facility]/ZIP Co de Phone Number B[facility]ZE PFT NON-INTERFACED (ONBASE SCANS) * HIV Antigen Antibody Combo (12/30/2021 9:15 AM CDT) HIV 1&2 Antibody (External) NEGATIVE NEGATIVE NON-INTERFACE D (ONBASE SCANS) Blood 12/30/2021 9:15 AM CDT Narrative BREEZE PFT - 01/06/2022 1:23 PM CDT Verified by Chetan Puga on 01/06/2022. Provider Outside LAB - BLOOD ORDERABL ES Performing Organization Address [facility] Co de Phone Number BREEZE PFT NON-INTERFACED (ONBASE SCANS) * Hepatitis B surface antigen (12/30/2021 9:15 AM CDT) Hep B Surface Agn (External) NEGATIVE NEGATIVE NON-INTERFACE D (ONBASE SCANS) Blood 12/30/2021 9:15 AM CDT Narrative BREEZE PFT - 12/30/2021 3:39 PM CDT Verified by Deangelo Carlson on 12/30/2021. Provider Outside LAB - BLOOD ORDERABL ES Performing Organization Address [facility] Co de Phone Number BREEZE PFT NON-INTERFACED (ONBASE SCANS) * Hepatitis C antibody (12/30/2021 9:15 AM CDT) Hepatitis C Antibody (External) NEGATIVE NEGATIVE NON-INTERFACE D (ONBASE SCANS) Blood 12/30/2021 9:15 AM CDT Narrative BREEZE PFT - 12/30/2021 3:39 PM CDT Verified by Deangelo Carlson on 12/30/2021. Provider Outside LAB - BLOOD ORDERABL ES [facility] PFT NON-INTERFACED (ONBASE SCANS) * (ABNORMAL) Comprehensive [...] ORD ERABLES [facility] PFT NON-INTERFACED (ONBASE SCANS) * (ABNORMAL) CBC [...] documented as of this encounter Care Teams A P Supervisor Relationship Specialty Start Date End Date Luis Ambriz MD [address] [place] [address] 216[address] PCP - General Family Medicine 02/16/22 Bola Amor, DATASTAGE CONSULTANT, [facility] [address] [place] [address] Assigned Behavioral Health Provider 12/04/21 Shaan Ramirez MD [address] [place] [address] Assigned Surgical Provider 12/04/[address] MD [address] [place] [address] [phone] Assigned Rheumatology Provider 02/25/22 Nini Patten MD [address] [place] [address] [phone] Endocrinology, Diabetes, and Metabolism 08/29/22 Nini Patten MD [address] [place] [address] Assigned Endocrinology Provider 01/20/23 Margaret Reyes, [facility] 08/10/23 Adria Cisneros MD [address] [place] [address] Rheumatology 11/09/23 Adria Cisneros MD [address] [place] [address] Rheumatology 11/09/23 documented as of this encounter
--- OUTSIDE RECORDS SUMMARY | 2024-01-24 09:09 | XMS_ITS | Encounter Summary ---
Author Organization [place] Address [address] [place] [address] Care Team Providers Care Casting Director Name Role Phone ZuleymaBola [facility], [facility] Unavailable + [phone] Shaan Ramirez MD Unavailable [phone] Luis Ambriz MD Primary Care Provider [phone] MD Unavailable [phone] Nini Patten MD Unavailable [phone] Nini Patten MD Unavailable [phone] Margaret Reyes [facility] Unavailable Unavailable Adria Cisneros MD Unavailable [phone] Adria Cisneros MD Unavailable +[phone] Encounter Details Date Type Department Care Team (Late st Contact Info) Description 09/13/2022 [facility] Advice [facility] [address] [address] MD [facility], Rheumatology [address] [place] [address] Social History Tobacco Use Types Packs/Day [...] at 10A Jayla Elise RN Rhe[facility]ology [facility] MOTIVE SERVICE PORTER * Telephone Encounter - Jayla Elise RN - 09/13/2022 2:37 PM CSTSummary: patient update on culture results Spoke to patient regarding her MyC message update about staph infection. Reporting she saw batching operator, Dr. Francisca Lomeli at [facility] d/t recurrent skin infections. This visit included a nasal swab/culture of her nares. Patient has included a copy of the visit note and will upload the culture results later today whichpatient reports was positive for Staph infection. Veterinary Laboratory Technician is recommending extensive antbx regime. Patient verifies she 1-is not taking methotrexate 2-will recheck her labs on 09/25 3--stopped humira apprx 6 wks ago on her own thinking it was causing her repeated infections. Message update to Dr. Lane. MOTIVE SERVICE PORTER documented in this encounter Plan of Treatment Upcoming Encounters Date Type Department Care Team (Late st Contact Info) Description 06/02/2024 10:00 AM CDT Office Visit [address] [facility] [address] [place] [phone] Shaan Ramirez MD [address] [place] [address] 08/01/2024 8:00 AM AUTOMOTIVE SERVICE PORTER Virtual Visit [facility] [address] [place] [phone] Adria Cisneros MD [address] [facility] [address] [place] [address] documented as of this encounter Visit Diagnoses Not on filedocumented in this encounter Additional Health Concerns Assessment Noted Time PHQ-9 Depression Total Score: 10 023 9:59 AM AUTOMOTIVE SERVICE PORTER documented as of this encounter Care Teams Casting Director Relationship Specialty Start Date End Date Luis Ambriz MD [address] [place] [address] PCP - General Family Medicine 02/16/22 Bola Amor, [facility], [facility] [address] [place] [address] 180 [place], [place] 704395 Assigned Behavioral Health Provider 12/04/21 Shaan Ramirez MD [address] [place] [address] [phone] Assigned Surgical Provider 12/04/[address] MD [address] [place] [address] Assigned Rheumatology Provider 02/25/22 Nini Patten MD [address] [place] [address] Endocrinology, Diabetes, and Metabolism 08/29/22 Nini Patten MD [address] [place] [address] Assigned Endocrinology Provider 01/20/23 Margaret Reyes, [facility] Pharmacist 08/10/23 Adria Cisneros MD [address] [place] [address] Rheumatology 11/09/23 Adria Cisneros MD [address] [place] [address] MD Rheumatology 11/09/23 documented as of this encounter
--- OUTSIDE RECORDS SUMMARY | 2024-01-24 09:09 | XMS_ITS | Encounter Summary ---
Author Organization [place] Address [address] [place] [address] Care Team Providers Care Coal Pulverizing Operator Name Role Phone ZuleymaBola [facility], [facility] Unavailable +[phone] Shaan Ramirez MD Unavailable [phone] Luis Ambriz MD Primary Care Provider [phone] MD Unavailable [phone] Nini Patten MD Unavailable [phone] Nini Patten MD Unavailable [phone] Margaret Reyes [facility] Unavailable Unavailable Adria Cisneros MD Unavailable [phone] Adria Cisneros MD Unavailable [phone] Encounter Details Date Type Department Care Team (Late st Contact Info) Description 01/07/2022 [facility] Medical Advice [facility] Eye [address] Clin [address] [place] [phone] Shaan Ramirez MD [address] [place] [address] [phone] Intermediate uveitis of both eyes (Primary Dx) [...] Description 06/02/2024 10:00 AM CDT Office Visit [facility] Clinic [place] [phone] [facility] [address] [place] [address] Shaan Ramirez MD [address] [place] [address] [phone] 08/01/2024 8:00 AM PREPARER MAKING DEPARTMENT Virtual Visit [facility] Rhe[facility]ology [facility] [place] [address] [place] [phone] Adria Cisneros MD [address] [place] [address] 88 [place], [place] 987805 documented as of this encounter Visit Diagnoses Diagnosis Intermediate uveitis of both eyes- Primary documented in this encounter Additional Health Concerns Assessment Noted Time PHQ-9 Depression Total Score: 7 01/05/20 22 12:23 PM CDT documented as of this encounter Care Teams Coal Pulverizing Operator Relationship Specialty Start Date End Date Luis Ambriz MD [address] [place] [address] PCP - General Family Medicine 02/16/22 Bola Amor, GEOTHERMAL ELECTRICAL ENGINEER, [facility] [address] [facility] [address] [place], [place] [phone] Assigned Behavioral Health Provider 12/04/21 Shaan Ramirez MD [address] [place] [address] [phone] Assigned Surgical Provider 12/04/[address] MD [address] [place] [address] 228195 Assigned Rheumatology Provider 02/25/22 Nini Patten MD [address] [place] [address] Endocrinology, Diabetes, and Metabolism 08/29/22 Nini Patten MD [address] [place] [address] Assigned Endocrinology Provider 01/20/23 Margaret Reyes, [facility] 08/10/23 Adria Cisneros MD [address] [place] [address] Rheumatology 11/09/23 Adria Cisneros MD [address] [place] [address] Rheumatology 11/09/23 documented as of this encounter
--- OUTSIDE RECORDS SUMMARY | 2024-01-24 09:09 | XMS_ITS | Encounter Summary ---
Author Organization [facility] Address [address] [place] [address] Care Team Providers Care Cover Operator Name Role Phone ZuleymaBola [facility], [facility] Unavailable +[phone] Shaan Ramirez MD Unavailable [phone] Luis Ambriz MD Primary Care Provider [phone] MD Unavailable [phone] Nini Patten MD Unavailable [phone] Nini Patten MD Unavailable [phone] Margaret Reyes [facility] Unavailable Unavailable Adria Cisneros MD Unavailable [phone] Adria Cisneros MD Unavailable [phone] Encounter Details Date Type Department Care Team (Late st Contact Info) Description 01/04/2023 [facility] [address] [place] [address] Rika Adler [facility] Social History Tobacco Use Types Packs/Day Years [...] Description 06/02/2024 10:00 AM CDT Office Visit [facility] Eye [facility] [address] [facility] 9th Fl Clin 9A [place] [address] Shaan Ramirez MD [address] [place] [address] 08/01/2024 8:00 AM PROGRAM MANAGER ENVIRONMENTAL PLANNING Virtual Visit [facility] Rheumatology Clinic [address] [phone] Adria Cisneros MD [address] [place] [address] [phone] documented as of this encounter Visit Diagnoses Not on filedocumented in this encounter Additional Health Concerns Assessment Noted Time PHQ-9 Depression Total Score: 4 12/25/19 23 2:25 PM CDT documented as of this encounter Care Teams Cover Operator Relationship Specialty Start Date End Date Luis Ambriz MD [address] [place] [address]258 PCP - General Family Medicine 02/16/22 Bola Amor, INSOLE ROUNDER, [facility] [address] [place] [address] Assigned Behavioral Health Provider 12/04/21 Shaan Ramirez MD [address] [place] [address] 21596 Assigned Surgical Provider 12/04/[address] MD [address] [place] [address] [phone] Assigned Rheumatology Provider 02/25/22 Nini Patten MD [address] [place] [address] [phone] Endocrinology, Diabetes, and Metabolism 08/29/22 Nini Patten MD [address] [place] [address] Assigned Endocrinology Provider 01/20/23 Margaret Reyes, [facility] 08/10/23 Adria Cisneros MD [address] [place] [address]31 Rheumatology 11/09/23 Adria Cisneros MD [address] [place] [address] Rheumatology 11/09/23 documented as of this encounter
--- OUTSIDE RECORDS SUMMARY | 2024-01-24 09:09 | XMS_ITS | Encounter Summary ---
Author Organization [place] Address [address] [place] [address] 6[address] Care Team Providers Care Process Analyst Name Role Phone ZuleymaBola [facility], [facility] Unavailable +[phone] Shaan Ramirez MD Unavailable [phone] Luis Ambriz MD Primary Care Provider [phone] MD Unavailable [phone] Nini Patten MD Unavailable [phone] Nini Patten MD Unavailable [phone] Margaret Reyes [facility] Unavailable Unavailable Adria Cisneros MD Unavailable [phone] Adria Cisneros MD Unavailable [phone] Reason for Visit * Reason Onset Date Comments Vision Changes Ou 12/21/2021 Encounter Details Date Type Department Care Team (Late st Contact Info) Description 12/21/2021 [facility] Medical Advice [facility] Eye [address] [place] [address] Shaan Ramirez MD [address] [place] [address] [phone] Vision Changes Ou Social History Tobacco Use [...] Description 06/02/2024 10:00 AM CDT Office Visit [facility] [address] [facility] 9[address] [place] [address] Shaan Ramirez MD [address] [place] [address] [phone] 08/01/2024 8:00 AM INSULATION WORKER INTERIOR SURFACE Virtual Visit [facility] Rhe[facility]ology Clinic [address] [phone] Adria Cisneros MD [address] [place] [address] 19302 documented as of this encounter Visit Diagnoses Diagnosis Intermediate uveitis of both eyes documented in this encounter Additional Health Concerns Assessment Noted Time PHQ-9 Depression Total Score: 10 022 12:04 PM CDT documented as of this encounter Care Teams Process Analyst Relationship Specialty Start Date End Date Luis Ambriz MD [address] [place] [address] [phone] PCP - General Family Medicine 7/14/22 Bola Amor, DISABILITY MANAGER, [facility] [address] [address] Assigned Behavioral Health Provider 12/04/21 Shaan Ramirez MD [address] [place] [address] 17730 Assigned Surgical Provider 12/04/[address] MD 420 [place], [place] 582265 Assigned Rheumatology Provider 02/25/22 Nini Patten MD [address] [place] [address]681 Endocrinology, Diabetes, and Metabolism 08/29/22 Nini Patten MD [address] [place] [address] 723125 Assigned Endocrinology Provider 01/20/23 Margaret Reyes, [facility] Pharmacist 08/10/23 Adria Cisneros MD [address] [place] [address] 28392 Rheumatology 11/09/23 Adria Cisneros MD [address] [place] [address] 66196 Rheumatology 11/09/23 documented as of this encounter
--- OUTSIDE RECORDS SUMMARY | 2024-01-24 09:09 | XMS_ITS | Encounter Summary ---
Author Organization [place] Address [address] [place] [address]101 Care Team Providers Care Infusion Therapy Nurse Name Role Phone ZuleymaBola [facility], [facility] Unavailable + [phone] Shaan Ramirez MD Unavailable [phone] Luis Ambriz MD Primary Care Provider [phone] MD Unavailable [phone] Nini Patten MD Unavailable [phone] Nini Patten MD Unavailable [phone] Margaret Reyes [facility] Unavailable Unavailable Adria Cisneros MD Unavailable [phone] Adria Cisneros MD Unavailable [phone] Encounter Details Date Type Department Care Team (Late st Contact Info) Description 05/17/2022 [facility] Medical Advice [facility] [address] [address] MD [facility], Rheumatology [address] [place] [address] Social History Tobacco Use Types Packs/Day [...] encounter Miscellaneous Notes * Telephone Encounter - Dorothea Eileen - 05/17/2022 11:50 AM CDT Pt [...] [facility] Eye [facility] - [place] [id number] [facility] 9[facility] 9A [place] [address] Shaan Ramirez MD [address] [place] [address] [phone] 08/01/2024 8:00 AM ANTENNA ENGINEER Virtual Visit [facility] Rheumatology Clinic [address] [address] Adria Cisneros MD [address] [place] [address] [phone] documented as of this encounter Visit Diagnoses Not on filedocumented in this encounter Additional Health Concerns Assessment Noted Time PHQ-9 Depression Total Score: 4 03/27/20 22 9:21 AM CDT documented as of this encounter Care Teams Infusion Therapy Nurse Relationship Specialty Start Date End Date Luis Ambriz MD [address] [place] [address] [phone] PCP - General Family Medicine 02/16/22 Bola Amor, [facility], [facility] [address] [place] [address] 16268 Assigned Behavioral Health Provider 12/04/21 Shaan Ramirez MD [address] [place] [address]35 Assigned Surgical Provider 12/04/[address] MD [address] [place] [address] Assigned Rheumatology Provider 02/25/22 Nini Patten MD [address] [place] [address]726 Endocrinology, Diabetes, and Metabolism 08/29/22 Nini Patten MD [address] [place] [address] Assigned Endocrinology Provider 01/20/23 Margaret Reyes, [facility] Pharmacist 08/10/23 Adria Cisneros MD [address] [place] [address] Rheumatology 11/09/23 Adria Cisneros MD [address] [place] [address] Rheumatology 11/09/23 documented as of this encounter
--- OUTSIDE RECORDS SUMMARY | 2024-01-24 09:09 | XMS_ITS | Clinical Summary ---
Author Organization [facility] Address [place], [place] [address] Care Team Providers Care Social Service Agency Director Name Role Phone Luis Ambriz MD Primary Care Provider [phone] Allergies Active Allergy Reactions Criticality Noted Date Comments Lavender Oil Cough 11/28/2014 Hydrocodone-Acetaminophen Hives 11/28/2014 Medications Medication Sig Dispensed Refills Start Date End Date Status spironolactone (ALDACTONE) 50 mg tabletIndications:h idradentits suppurativa Take 50 mg by mouth 2 times daily. Indications: hidradentits suppurativa 1 03/13/2019 Active metFORMIN (GLUCOPHAGE XR) 500 mg Extended-Release tablet TAKE 1 TO 2 TABLETS BY MOUTH DAILY 07/29/2021 Active rosuvastatin (CRESTOR) 10 mg tablet Take 10 mg by mouth once daily. 09/01/2022 Active losartan (COZAAR) 25 mg tablet Take 25 mg by mouth once daily. 09/26/2022 Active metoprolol succinate (TOPROL XL) 50 mg sustained-release tablet Take 1 Tablet (50 mg) by mouth once daily. 0 10/16/2022 Active folic acid 1 mg tablet Take 1 mg by mouth once daily. 01/09/2022 Active semaglutide (OZEMPIC) 1 mg/dose (4 mg/3 mL) pen Inject 1 mg subcutaneous. 04/10/2023 Active tofacitinib (Xeljanz) 5 mg tab tablet Take 5 mg by mouth two times daily. Active venlafaxine (Effexor XR) 75 mg cp24 Extended-Release capsuleIndications: Mild episode of recurrent major depressive disorder (HC) Take 3 Capsules (225 mg) by mouth once daily with a meal. Take 1 cap (75mg) by mouth once daily with a meal for 1-2 weeks, then increase to 2 caps (150mg) by mouth once daily 12/10/2023 Active lisdexamfetamine (Vyvanse) 30 mg capsuleIndications: Attention deficit hyperactivity disorder (ADHD), combined type Take 1 Capsule (30 mg) by mouth once daily. 30 Capsule 12/28/2023 4 Active lisdexamfetamine (Vyvanse) 30 mg capsuleIndications: Attention deficit hyperactivity disorder (ADHD), combined type Take 1 Capsule (30 mg) by mouth once daily. 30 Capsule 01/27/2024 4 Active lisdexamfetamine (Vyvanse) 30 mg capsuleIndications: Attention deficit hyperactivity disorder (ADHD), combined type Take 1 Capsule (30 mg) by mouth once daily. 30 Capsule 02/25/2024 Active Active Problems Problem Noted Date Diagnosed Date Controlled substance agreement signed 06/09/2021 Overview: Signed 06-09-2021 Dr. Jennifer Patterson MD Severe episode of recurrent major depressive disorder, without psychotic features PTSD (post-traumatic stress disorder) Attention deficit hyperactiv ity disorder (ADHD), combined type Encounters Date Type Department Care Team Description 01/23/2024 Telephone [facility] [address] [place] [address] Yamilka Zelaya NP Form (CSA) 12/11/2023 Telephone [facility] [address] [place] [address] Yamilka Zelaya NP JOHANNE 12/10/2023 10:30 AM CDT Office Visit [facility] [address] [place] [address] Yamilka Zelaya NP Follow Up; Medication Management (feeling, I'm actually feeling pretty good. I haven't taken my meds for about about a month, except for the Vyvanse and Ozempic. 10 days into the not taking meds, I have not needed to take a nap. So I didn't want to take my medications until i find out which meds are causing the need to sleep. I've been more emotionally volitle.) 12/10/2023 Telephone [facility] [address] [facility] [place] [address] Yamilka Zelaya NP personal item left here (personal item left here) 12/10/2023 Travel 11/28/2023 Refill [facility] [address] [place] [address] Yamilka Zelaya NP Refill Request (vyvanse ) 10/29/2023 10:00 AM CDT Office Visit [facility] [address] [place] [address] Yamilka Zelaya NP Follow Up; Medication Management 10/29/2023 Telephone [facility] [address] [place] [address] Yamilka Zelaya NP Medication Management (Pharmacy Change ) 10/29/2023 Travel from Last 3 Months Immunizations Name Administration Dates Next Due COVID-19 vaccine (Moderna 100mcg/0.5mL) PF, MDV 07/20/2021 Influenza RIV4 (Age 18+ Year s) [...] PHQ-2 Answer Date Recorded PHQ-2 TOTAL SCORE 2 12/10/2023 Social Connections Answer Date Recorded Frequency of [...] Sign Reading Time Taken Comments Blood Pressure 135/86 12/10/2023 10:31 AM CDT Pulse 85 12/10/2023 10:31 AM CDT Temperature 36.7 ??C (98 ??F) 01/22/2015 8:22 AM CDT Respiratory Rate - - Oxygen Saturation 97% 01/22/2015 8:22 AM CDT Inhaled Oxygen Concentration - - Weight 108.7 kg (239 lb 9.6 oz) 024 10:31 AM CDT Height 167.6 cm (5' 6) 10/16/2022 10:4 1 AM CDT Body Mass Index 38.67 10/16/2022 10:41 AM CDT Plan of Treatment Upcoming Encounters Date Type Department Care Team (Late st Contact Info) Description 02/25/2024 3:00 PM CDT Office Visit [facility] [address] [place] [address] Yamilka Zelaya NP [address] [place] [address] Health Maintenance Due Date Last Done Comments HIV for age 15-65 1992 Hepatitis C screening for age 18-79 1995 Colonoscopy through age 75 2022 Mammogram for age 45-75 2022 Pap test for age 21-65 07/21/2022 9, 07/21/2019, 08/11/2016, Additional history exists COVID-19 vaccine series (5 - 2022-24 season) 2023 10/19/2022, 07/20/2021, 10/13/2020, Additional history exists BMI (ht and wt on same day) for age 18+ 10/17/2023 10/16/2022, 08/07/2022, 06/30/2019, Additional history exists Influenza for age 9-49 04/06/2024 , 2019, 05/16/2018, Additional history exists Tetanus booster 06/18/2024 06/18/2014, 01/01/2014 Depression screening for age 12+ 12/10/2024 12/11/2023, 12/10/2023, 12/10/2023, Additional history exists Lipids for age 45-75 08/07/2027 08/07/2022, 07/14/2021, 06/28/2020 Tdap Completed 06/18/2014, 01/01/2014 Pneumococcal series for age 6-64 Aged Out No longer eligible based on patient's age to complete this topic Procedures Procedure Name Priority Date/Time Associated Diagnosis Comments LC LIPID PANEL Routine 08/07/2022 10:04 AM SCALP TREATMENT SPECIALIST Other halfway (current) drug therapy CALCULATION REVIEWER THIN PREP PAP SCREEN IMAGED Routine 07/21/2019 5:00 PM SCALP TREATMENT SPECIALIST from Last 3 Months or Most Recently Relevant to Health Maintenance Results * (ABNORMAL) LC LIPID PANEL (08/07/2022 10:04 AM SCALP TREATMENT SPECIALIST) Cholesterol, Total 215(H) 100 - 199 mg/dL 08/10/2022 4:07 PM SCALP TREATMENT SPECIALIST [facility] Triglycerides 209(H) 0 - 149 mg/dL 08/10/2022 4:07 PM SCALP TREATMENT SPECIALIST [facility] HDL Cholesterol 52 >39 mg/dL 3 4:07 PM SCALP TREATMENT SPECIALIST [facility] VLDL Cholesterol Nick 37 5 - 40 mg/dL 08/10/2022 4:07 PM SCALP TREATMENT SPECIALIST [facility] ([facility]) LDL Chol Calc (NIH) 126(H) 0 - 99 mg/dL 08/10/2022 4:07 PM SCALP TREATMENT SPECIALIST [facility] ([facility]) Blood BLOOD SPECIMEN / Unknown Butterfly / Unknown 08/07/2022 10:04 AM SCALP TREATMENT SPECIALIST 08/07/2022 10:07 AM SCALP TREATMENT SPECIALIST Narrative [facility] ([facility]) - 08/10/2022 4:07 PM SCALP TREATMENT SPECIALIST Performed at: ??01 - [facility] [place] [address] [place] [address], [place], [place] ??[id number] Magazine Journalist: Ryley Lewis MD, Phone: ??[phone] Yamilka Zelaya NP SEND OUTS [facility] ([facility]) [facility] [place] [address], * CALCULATION REVIEWER THIN PREP PAP SCREEN IMAGED (07/21/2019 5:00 PM SCALP TREATMENT SPECIALIST) Case Report Gynecologic Cytology Report ? Case: [id number] ? Authorizing Provider: ??Luis Ambriz MD ?Collected: ? 07/21/2019 1700 ? Ordering Location: ? [facility] ?Received: ?07/22/2019 1711 ? First Screen: ?Mercedes Guillen ? Specimen: ?CALCULATION REVIEWER ThinPrep Vial Screening, Cervical/Vaginal ? 08/04/2019 4:35 PM [facility] INTERPRETATION/ RESULT NEGATIVE FOR INTRAEPITHELIAL LESION OR MALIGNANCY (NIL) (none) 08/04/2019 4:35 PM [facility] IMEN ADEQUACY Satisfactory for evaluation Endocervical component present Scant cellularity 08/04/2019 4:35 PM [facility] HPV REQUEST HPV and PAP 08/04/2019 4:35 PM [facility] Date of LMP 04/11/2019 08/04/2019 4:35 PM [facility] Last Pap Date 08/11/2016 08/04/2019 4:35 PM [facility] Last Pap Result NIL 9 4:35 PM [facility] Additional Information 08/04/2019 4:35 PM [facility] Comment: Interpreted at [facility] Central Laboratory - [address], [place] [address] Automated Review Successful 08/04/2019 4:35 PM [facility] Comment:Specimen processed s uccessfully by automated supply chain planner device, ThinPrep Imaging System, [employer] ANCILLARY TESTING CALCULATION REVIEWER HPV Ordered, Please see separate report 08/04/2019 4:35 PM [facility] Note The pap test is a screening technique, not a diagnostic procedure. It is used primarily to screen for squamous cancers and precursor lesions. Published studies have shown that it is subject to both false negative and false positive results. The pap test should not be used as the sole means to diagnose or exclude pre-malignant and malignant lesions. 08/04/2019 4:35 PM [facility] Other (Cervical/Vagina l) 07/21/2019 5:00 PM SCALP TREATMENT SPECIALIST 07/22/2019 5:11 PM SCALP TREATMENT SPECIALIST Luis Ambriz MD PATHOLOGY/CYTOLOGY [facility] [address] [place] [address], from Last 3 Months or Most Recently Relevant to Health Maintenance Care Teams Social Service Agency Director Relationship Specialty Start Date End Date Luis Ambriz MD [address] [place] [address] PCP - General Family Practice 05/11/20
--- OUTSIDE RECORDS SUMMARY | 2024-01-24 09:09 | XMS_ITS | Encounter Summary ---
Author Organization [facility] Address [address] [place] [address] Care Team Providers Care Insurance Policy Issue Clerk Name Role Phone ZuleymaBola [facility], [facility] Unavailable [phone] Shaan Ramirez MD Unavailable [phone] Luis Ambriz MD Primary Care Provider [phone] MD Unavailable [phone] Nini Patten MD Unavailable [phone] Nini Patten MD Unavailable [phone] Margaret Reyes [facility] Unavailable Unavailable Adria Cisneros MD Unavailable [phone] Adria Cisneros MD Unavailable [phone] Encounter Details Date Type Department Care Team (Late st Contact Info) Description 11/29/2021 [facility] Eye [address] [phone] Shaan Ramirez MD [address] [place] [address] [phone] Social History Tobacco Use Types Packs/Day Years [...] Description 06/02/2024 10:00 AM CDT Office Visit [facility] Eye [facility] Emergency Department [address] [facility] 9th Fl Clin [address] [place] [phone] Shaan Ramirez MD [address] [place] [address]78155 08/01/2024 8:00 AM NEEDLEWORKER Virtual Visit [facility] Rhe[facility]ology [facility] [place] [address] [place] [phone] Adria Cisneros MD [address] [facility] [facility] [address] [place], [place] 7408[address] documented as of this encounter Visit Diagnoses Not on filedocumented in this encounter Additional Health Concerns Assessment Noted Time PHQ-9 Depression Total Score: 6 11/25/19 22 7:04 AM CDT documented as of this encounter Care Teams Insurance Policy Issue Clerk Relationship Specialty Start Date End Date Luis Abmriz MD [address] [place] [address] PCP - General Family Medicine 02/16/22 Bola Amor, SOLDERER, [facility] [address] [facility] [address] [place] [address] Assigned Behavioral Health Provider 12/04/21 Shaan Ramirez MD [address] [place] [address] 525295 Assigned Surgical Provider 12/04/[address] MD [address] [place] [address] Assigned Rheumatology Provider 02/25/22 Nini Patten MD [address] [place] [address] Endocrinology, Diabetes, and Metabolism 08/29/22 Nini Patten MD [address] [place] [address] Assigned Endocrinology Provider 01/20/23 Margaret Reyes, [facility] 08/10/23 Adria Cisneros MD [address] [place] [address] Rheumatology 11/09/23 Adria Cisneros MD [address] [place] [address] Rheumatology 11/09/23 documented as of this encounter
--- OUTSIDE RECORDS SUMMARY | 2024-01-24 09:09 | XMS_ITS | Encounter Summary ---
Author Organization [facility] Address [address] [place] [address] Care Team Providers Care Occup Ther Name Role Phone Zuleyma Christalromancamila Naranjo [facility], [facility] Unavailable [phone] Shaan Ramirez MD Unavailable [phone] Luis Ambriz MD Primary Care Provider Richmond Lane MD Unavailable [phone] Nini Patten MD Unavailable [phone] Nini Patten MD Unavailable [phone] Margaret Reyes [facility] Unavailable Unavailable Adria Cisneros MD Unavailable [phone] Adria Cisneros MD Unavailable [phone] Encounter Details Date Type Department Care Team (Late st Contact Info) Description 02/02/2022 [facility] Medical Advice [facility] Care [address] [place] [phone] [facility] Social History Tobacco Use Types Packs/Day [...] Upcoming Encounters Date Type Department Care Team ([facility] Contact Info) Description 06/02/2024 10:00 AM CDT Office Visit [facility] Eye [facility] [address] [facility] 9th Fl Clin [address] [place] [address] Shaan Ramirez MD [address] [place] [address] 08/01/2024 8:00 AM ELECTRICAL ENGINEERING DIRECTOR Virtual Visit [facility] Rheumatology Clinic [address] [phone] Adria Cisneros MD [address] [place] [address] [phone] documented as of this encounter Visit Diagnoses Not on filedocumented in this encounter Additional Health Concerns Assessment Noted Time PHQ-9 Depression Total Score: 6 02/03/20 22 9:26 AM CDT documented as of this encounter Care Teams Occup Ther Relationship Specialty Start Date End Date Luis Ambriz MD [address] [place] [address] PCP - General Family Medicine 02/16/22 Bola Amor, PIGMENT FURNACE TENDER, [facility] [address] [place] [address] Assigned Behavioral Health Provider 12/04/21 Shaan Ramirez MD [address] [place] [address] Assigned Surgical Provider 12/04/[address] MD [address] [place] [address] [phone] Assigned Rheumatology Provider 02/25/22 Nini Patten MD [address] [place] [address] [phone] Endocrinology, Diabetes, and Metabolism 08/29/22 Nini Patten MD [address] [place] [address] Assigned Endocrinology Provider 01/20/23 Margaret Reyes, [facility] 08/10/23 Adria Cisneros MD [address] [place] [address] Rheumatology 11/09/23 Adria Cisneros MD [address] [place] [address] Rheumatology 11/09/23 documented as of this encounter
--- OUTSIDE RECORDS SUMMARY | 2024-01-24 09:09 | XMS_ITS ---
Author Organization [facility] Address [address] [place] [address] Care Team Providers Care Beauty School Instructor Name Role Phone Unavailable Unavailable Unavailable Surgery Details Not on file Complications Check Surgery Details section. Procedure Estimated Blood Loss Check Surgery Details section. Procedure Findings Check Surgery Details section. Procedure Specimens Taken Check Surgery Details section.
--- OUTSIDE RECORDS SUMMARY | 2024-01-24 09:09 | XMS_ITS | Encounter Summary ---
Author Organization [facility] Address [address] [place] [address] Care Team Providers Care Wet Machine Tender Name Role Phone ZuleymaBola [facility] Unavailable + [phone] Shaan Ramirez MD Unavailable [phone] Luis Ambriz MD Primary Care Provider [phone] MD Unavailable [phone] Nini Patten MD Unavailable [phone] Nini Patten MD Unavailable [phone] Margaret Reyes [facility] Unavailable Unavailable Adria Cisneros MD Unavailable [phone] Adria Cisneros MD Unavailable [phone] Encounter Details Date Type Department Care Team (Late st Contact Info) Description 09/26/2022 [facility] Medical Advice [facility] Rheumatology Clinic [address] [address] MD [facility], Rheumatology [address] [place] [phone] Social History Tobacco Use Types Packs/Day [...] Description 06/02/2024 10:00 AM CDT Office Visit [facility] Eye [facility] [address] [facility] 9th Fl Clin [address] [place] [address] Shaan Ramirez MD [address] [place], [place] [address] 08/01/2024 8:00 AM TREATER Virtual Visit [facility] Rheumatology [facility] [address] [place] [phone] Adria Cisneros MD [address] [facility] [address] [place], [place] [phone] documented as of this encounter Visit Diagnoses Not on filedocumented in this encounter Additional Health Concerns Assessment Noted Time PHQ-9 Depression Total Score: 10 023 9:59 AM TREATER documented as of this encounter Care Teams Wet Machine Tender Relationship Specialty Start Date End Date Luis Ambriz MD [address] [place] [address] [phone] PCP - General Family Medicine 02/16/22 Bola Amor, PERCUSSION INSTRUMENT REPAIRER, [facility] [address] [place] [address] [place], [place] 0[address] Assigned Behavioral Health Provider 12/04/21 Shaan Ramirez MD [address] [place] [address] 701235 Assigned Surgical Provider 12/04/[address] MD [address] [place], [place] 305455 Assigned Rheumatology Provider 02/25/22 Nini Patten MD [address] [place], [place] [phone] Endocrinology, Diabetes, and Metabolism 08/29/22 Nini Patten MD [address] [place] [address] [phone] Assigned Endocrinology Provider 01/20/23 Margaret Reyes, [facility] 08/10/23 Adria Cisneros MD [address] [place] [address] [phone] Rheumatology 11/09/23 Adria Cisneros MD [address] [place] [address] Rheumatology 11/09/23 documented as of this encounter
== END 2024-01-24 09:04 | disposition home or self-care (01) ==
PROVIDERS: PCP Family Medicine; Visit Provider Family Medicine
DX: R79.89 Other specified abnormal findings of blood chemistry (principal); I10 Essential (primary) hypertension; E78.00 Pure hypercholesterolemia, unspecified; E11.9 Type 2 diabetes mellitus without complications; Z79.85 Long-term (current) use of injectable non-insulin antidiabetic drugs
CPT/HCPCS: 80053; 80061; 82043; 82248; 82570

== ENCOUNTER 2024-07-21 10:31 | Outpatient (CLI) | payer OTHER, SELFPAY | END 2024-07-21 10:32 | disposition home or self-care (01) | LOC: LKVREF 10:32 | PROVIDERS: PCP Family Medicine; Visit Provider Family Medicine | DX: R79.89 Other specified abnormal findings of blood chemistry (principal) | CPT/HCPCS: 80076 ==

== ENCOUNTER 2024-09-07 16:55 | Emergency (ER) | payer OTHER, SELFPAY ==
[2024-09-07] VITALS (8 sets, daily range): BP systolic 146; BP diastolic 89; PULSE 72–80; RESP 16; TEMP 36.3; O2SAT 96–100; BMI 38.7
--- NOTE | 2024-09-07 17:35 | ED_ITS ---
HPI - Chest Pain General Chief Complaint: Chest Pain Stated Complaint: heart attack like symptoms Time Seen by Provider: 09/07/24 17:16 History of Present Illness HPI narrative: This 49-year-old female comes in reporting jaw pain and chest pain that began less than an hour prior to arrival. She states that she was out walking in the [place] and after returning when she sat down she began to have jaw pain that radiated into her neck and soon occurred also in her chest. She did not have any nausea, vomiting, lightheadedness, shortness of breath, or diaphoresis. She does not report any prior cardiac history but does have risk factors. She is treating diabetes, cholesterol, and elevated blood pressure. She does not smoke. Her father has had numerous stents with coronary artery disease. She states that the pain is gone currently. She noticed it coming and going in waves on the way here but now has no discomfort. She does report a prior history of chest symptoms that was termed esophageal spasm. She does not report any prior exercise intolerance. Related Data Home Medications ?Medication ?Instructions ?Recorded ?Confirmed folic acid 1 mg tablet 1 mg PO DAILY 04/06/22 09/04/24 methotrexate sodium 2.5 mg tablet 12.5 mg PO .1 x week 07/20/23 09/04/24 tofacitinib 5 mg tablet (Xeljanz) 5 mg PO BID 09/10/23 09/04/24 lisdexamfetamine 30 mg capsule 30 mg PO DAILY 12/13/23 09/04/24 venlafaxine 75 mg capsule,extended 150 mg PO DAILY 07/21/24 09/04/24 release 24 hr Previous Rx's ?Medication ?Instructions ?Recorded blood sugar diagnostic (Accu-Chek #100 ea 01/24/24 Guide test strips) lancets (Accu-Chek Softclix #200 ea 01/24/24 Lancets) cholecalciferol (vitamin D3) 50 50 mcg PO QDAY #90 caps 05/16/24 mcg (2,000 unit) capsule clotrimazole 1 % topical cream 1 applic topical BID 2 weeks #45 07/21/24 grams nystatin 100,000 unit/gram topical 1 applic topical BID #60 grams 07/21/24 powder rosuvastatin 10 mg tablet 10 mg PO DAILY #90 tabs 07/21/24 semaglutide 2 mg/dose (8 mg/3 mL) 2 mg (0.75 mL) subcut QWEEK #3 mL 07/21/24 subcutaneous pen injector (Ozempic) losartan 100 mg tablet 100 mg PO DAILY #90 tabs 08/22/24 amoxicillin 500 mg capsule 500 mg PO BID 10 days #20 caps 09/04/24 Allergies Allergy/AdvReac Type Severity Reaction Status Date / Time hydrocodone Allergy Mild Itching Verified 09/07/24 17:09 doxycycline AdvReac Severe Nausea Verified 09/07/24 17:09 Review of Systems Status of ROS Reports: 10 or more systems reviewed and unremarkable except as noted in History and below Narrative Constitutional: No fevers, no weight gain or loss. Eyes: No discharge. No vision changes. HENT: No congestion, no sore throat, no ear pain. Cardiovascular: No palpitations. Chest pain as described above. Respiratory: No shortness of breath, no wheezes, no cough. Gastrointestinal: No abdominal pain, no vomiting, no diarrhea. Genitourinary: No dysuria, no hematuria. Musculoskeletal: Normal range of motion. Skin: No rashes, no pruritis. Neurological: No dizziness, weakness, sensory change, speech change. Endo/Heme/Allergies: No bruising or bleeding. No polydipsia. Pysch: no suicidality, no anxiety, no insomnia. All other systems reviewed and are negative. [facility] Medical History Fatigue ?R53.83 - Other fatigue (ICD-10) Excessive daytime sleepiness ?G47.19 - Other hypersomnia (ICD-10) Psoriasis ?L40.9 - Psoriasis, unspecified (ICD-10) Staph infection ?B95.8 - Unspecified staphylococcus as the cause of diseases classified e lsewhere (ICD-10) Hypercholesteremia ?E78.00 - Pure hypercholesterolemia, unspecified (ICD-10) High risk medication use ?Z79.899 - Other truck terminal manager (current) drug therapy (ICD-10) Uveitis of left eye ?H20.9 - Unspecified iridocyclitis (ICD-10) Urinary incontinence ?R32 - Unspecified urinary incontinence (ICD-10) Tinea versicolor ?B36.0 - Pityriasis versicolor (ICD-10) Myalgia and myositis Morbid obesity ?E66.01 - Morbid (severe) obesity due to excess calories (ICD-10) Migraine headache ?G43.909 - Migraine, unspecified, not intractable, without status migrainosus (ICD-10) Hypertension ?I10 - Essential (primary) hypertension (ICD-10) History of gestational diabetes mellitus (GDM) ?Z86.32 - Personal history of gestational diabetes (ICD-10) Hidradenitis suppurativa ?L73.2 - Hidradenitis suppurativa (ICD-10) External hemorrhoids ?K64.4 - Residual hemorrhoidal skin tags (ICD-10) Encounter for annual physical exam ?Z00.00 - Encounter for general adult medical examination without abnormal findings (ICD-10) Difficulty sleeping ?G47.9 - Sleep disorder, unspecified (ICD-10) Dermatitis ?L30.9 - Dermatitis, unspecified (ICD-10) Depression ?F32.A - Depression, unspecified (ICD-10) Controlled type 2 diabetes mellitus ?E11.9 - Type 2 diabetes mellitus without complications (ICD-10) Amenorrhea ?N91.2 - Amenorrhea, unspecified (ICD-10) Surgical History Status post hemorrhoidectomy (2013) ?Z98.890 - Other specified postprocedural states (ICD-10) ?Z87.19 - Personal history of other diseases of the digestive system (ICD-10) Status post endometrial ablation (09/29/14) ?Z98.890 - Other specified postprocedural states (ICD-10) Status post dilation and curettage ?Z98.890 - Other specified postprocedural states (ICD-10) Family History (Updated 08/19/24 @ 11:22 by Minnie Espitia MD) Other Breast cancer Social History (Updated 08/19/24 @ 11:22 by Minnie Espitia MD) Narrative: Lifelong nonsmoker. Drinks less than one alcoholic drink per week. 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 Full code. 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 Highest level of school completed/degree received: some college, no degree Smoking Status: Never smoker Do you use any of these nicotine containing products: None Second hand tobacco smoke exposure: Yes (father smoked) How often do you have a drink containing alcohol: 2-4 times a month Alcohol type details: ilia How many standard drinks containing alcohol do you have on a typical day: 1 or 2 How often do you have six or more drinks on one occasion: Never AUDIT-C Alcohol total score: 2 Non-prescribed substance use: denies use Caffeine: Yes (pop) Are you using contraception or practicing any form of control: No service: No Exam Narrative Exam Narrative: Constitutional: Well-developed, well-nourished, no acute distress. HEENT: Normocephalic, atraumatic. Neck: Normal range of motion. Nontender. Supple. Heart: Regular. No murmurs. Normal rate. Intact distal pulses. Lungs: Clear to auscultation. No chest discomfort. No wheezes, rhonchi, or rales. Abdomen: Normal bowel sounds. Nontender. No rebound tenderness. Genitalia: Deferred. Back: No midline tenderness. Normal range of motion. Extremities: Normal range of motion. No injury. Skin: Intact. No rash. Warm. No erythema or pallor. Neurologic: No altered sensation. No weakness. Alert and oriented. Psychiatric: No suicidality. No anxiety or depression. No insomnia. Nursing notes and vitals signs are reviewed. Const Vital Signs, click to edit/add: Vital Signs - 24 hr 09/07/24 17:01 09/07/24 17:27 09/07/24 17:30 Temperature 97.3 F L Pulse Rate 78 79 Pulse Rate [Pulse Oximeter] 80 Respiratory Rate 16 Blood Pressure [Left Forearm] 146/89 H Pulse Oximetry 98 100 100 Oxygen Delivery Method Room Air 09/07/24 18:13 09/07/24 18:15 09/07/24 18:30 Temperature Pulse Rate 72 72 74 Pulse Rate [Pulse Oximeter] Respiratory Rate Blood Pressure [Left Forearm] Pulse Oximetry 100 99 100 Oxygen Delivery Method 09/07/24 18:45 Temperature Pulse Rate 73 Pulse Rate [Pulse Oximeter] Respiratory Rate Blood Pressure [Left Forearm] Pulse Oximetry 98 Oxygen Delivery Method Course Vital Signs Vital signs: Initial Vital Signs Temperature 97.3 F L 09/07/24 17:01 Temperature Source Temporal Artery Scan 09/07/24 17:01 Pulse Rate 80 09/07/24 17:01 Respiratory Rate 16 09/07/24 17:01 Blood Pressure 146/89 H 09/07/24 17:01 Blood Pressure Mean 108 H 09/07/24 17:01 Blood Pressure Position High-Fowlers 09/07/24 17:01 Pulse Oximetry 98 09/07/24 17:01 Oxygen Delivery Method Room Air 09/07/24 17:01 Vital Signs Temperature 97.3 F L 09/07/24 17:01 Pulse Rate 80 09/07/24 17:01 Respiratory Rate 16 09/07/24 17:01 Blood Pressure 146/89 H 09/07/24 17:01 Pulse Oximetry 98 09/07/24 17:01 Oxygen Delivery Method Room Air 09/07/24 17:01 Temperature 97.3 F L 09/07/24 17:01 Pulse Rate 73 09/07/24 18:45 Respiratory Rate 16 09/07/24 17:01 Blood Pressure 146/89 H 09/07/24 17:01 Pulse Oximetry 98 09/07/24 18:45 Oxygen Delivery Method Room Air 09/07/24 17:01 Medications Administered Medications: Generic Name Dose Route Start Last Admin Trade Name Ethan PRN Reason Stop Dose Admin Aspirin 324 mg 09/07/24 17:34 09/07/24 18:03 Aspirin 81 Mg Tab.Chew PO 09/07/24 17:35 324 mg ONCE ONE Administration MDM - Chest Pain MDM Narrative Medical decision making narrative: This patient comes in reporting an episode of jaw pain that radiated down into her chest as described above. She did not have any other symptoms. This occurred after a walk in the [facility]. Her symptoms have completely resolved and remained absent throughout her stay here. An EKG shows normal sinus rhythm without any ST or T-wave abnormalities. Labs are acquired also and these return in normal fashion. In particular her troponin returns at 0. The patient has had symptoms like this in the past and was instructed to come for reassessment as there was some suspicion that this could be an esophageal spasm. She is thoroughly reassured with results today and feels okay to return home. Lab Data Labs: Lab Results 09/07/24 09/07/24 Range/Units 17:34 18:08 WBC 4.86 (4.50-11.00) K/uL RBC 4.31 (4.00-5.20) m/uL Hgb 13.8 (12.0-16.0) gm/dL Hct 41.4 (33.0-51.0) % MCV 96 (80-100) fL MCH 32 (26-34) pg MCHC 33 (32-36) gm/dL RDW Coeff of Claudette 11.9 (11.5-15.5) % Plt Count 284 (140-440) K/uL Neut % (Auto) 55.0 (42.0-72.0) % Lymph % (Auto) 37.0 (20-44) % Bowie % (Auto) 6.0 (0.0-11.0) % Eos % (Auto) 1.2 (0.0-7.0) % Baso % (Auto) 0.6 (0.0-3.0) % Neut # (Auto) 2.67 (1.7-7.0) K/uL Lymph # (Auto) 1.80 (0.90-2.90) K/uL Bowie # (Auto) 0.30 (0.00-0.90) K/UL Eos # (Auto) 0.06 (0.00-0.50) K/uL Baso # (Auto) 0.03 (0.00-0.30) K/uL Abs Immat Gran (auto) 0.01 (0.00-0.30) K/uL Imm/Tot Granulo (auto) 0.2 % Sodium 139 (135-149) mmol/L Potassium 3.5 L (3.6-5.1) mmol/L Chloride 103 (96-114) mmol/L Carbon Dioxide 28 (20-32) mmol/L Anion Gap 8 (7-15) mEq/L BUN 13 (5-24) mg/dL Creatinine 0.7 (0.5-1.5) mg/dL Estimated Creat Clear 93.01 Estimated GFR 107 ml/min Glucose 83 (60-115) mg/dL Calcium 8.9 (8.4-10.6) mg/dL POC Troponin I 0.00 L (0.01-0.04) ng/ml ECG Data Attestation: I personally reviewed and interpreted this ECG as follows: Interpretation: Normal sinus rhythm. Rate is 79 beats per minute. There are no ST or T-wave abnormalities. Discharge Plan Discharge Clinical Impression: Atypical chest pain Patient Disposition: Home, Self-Care Condition: Improved Additional Instructions: Continue current plans. Follow up with MD or return if symptoms are recurrent or worsening. Prescriptions: No Action folic acid 1 mg tablet 1 mg PO DAILY methotrexate sodium 2.5 mg tablet 12.5 mg PO .1 x week losartan 100 mg tablet 100 mg PO DAILY Qty: 90 4RF venlafaxine 75 mg capsule,extended release 24hr 150 mg PO DAILY Xeljanz 5 mg tablet 5 mg PO BID rosuvastatin 10 mg tablet 10 mg PO DAILY Qty: 90 2RF Ozempic 2 mg/dose (8 mg/3 mL) pen injector 2 mg subcut QWEEK Qty: 3 5RF nystatin 100,000 unit/gram powder 1 applic topical BID Qty: 60 3RF clotrimazole 1 % cream 1 applic topical BID 14 Days Qty: 45 1RF lisdexamfetamine 30 mg capsule 30 mg PO DAILY (DME) lancets [Accu-Chek Softclix Lancets] Misc See Rx Instructions .Route Qty: 200 10RF Rx Instructions: Test 4 times daily. (DME) Accu-Chek Guide test strips Strip See Rx Instructions .ROUTE .MEDSUPPLY Qty: 100 10RF Rx Instructions: Test 4 times per day. amoxicillin 500 mg capsule 500 mg PO BID 10 Days Qty: 20 0RF cholecalciferol (vitamin D3) 50 mcg (2,000 unit) capsule 50 mcg PO QDAY Qty: 90 0RF Follow Up/Referrals: Luis Ambriz MD [Primary Care Provider] - Stand Alone [facility]
[2024-09-07] MEDS: ASPIRIN 81 MG TAB.CHEW 324 MG PO (18:03)
[2024-09-07 18:24] LABS: Basophils Absolute Auto 0.03 K/uL (0.00-0.30); Basophils Percent Auto 0.6 % (0.0-3.0); Eosinophils Absolute Auto 0.06 K/uL (0.00-0.50); Eosinophils Percent Auto 1.2 % (0.0-7.0); Hematocrit 41.4 % (33.0-51.0); Hemoglobin* 13.8 gm/dL (12.0-16.0); Immature Granulocytes Abs Auto 0.01 K/uL (0.00-0.30); Immature Granulocytes Pct Auto 0.2 %; Mean Corpuscular HGB Conc 33 gm/dL (32-36); Mean Corpuscular Hemoglobin 32 pg (26-34); Mean Corpuscular Volume 96 fL (80-100); Neutrophils Absolute Auto 2.67 K/uL (1.7-7.0); Platelet Count* 284 K/uL (140-440); RDW Coefficient of Variation % 11.9 % (11.5-15.5); Red Blood Count 4.31 m/uL (4.00-5.20); White Blood Count* 4.86 K/uL (4.50-11.00)
[2024-09-07 18:25] LABS: Slide Review Reflex No
--- OUTSIDE RECORDS SUMMARY | 2024-09-07 18:28 | XMS_ITS | Encounter Summary ---
Author Organization [place] Address [address] [place] [address] Care Team Providers Care Braddisher Name Role Phone Bola Amor [facility], [facility] Unavailable [phone] Shaan Ramirez MD Unavailable [phone] Luis Ambriz MD Primary Care Provider [phone] MD Unavailable [phone] Nini Patten MD Unavailable [phone] Nini Patten MD Unavailable [phone] Margaret Reyes [facility] Unavailable Unavailable Adria Cisneros MD Unavailable [phone] Adria Cisneros MD Unavailable [phone] Adria Cisneros MD Unavailable [phone] Margaret Reyes [facility] Unavailable Unavailable Adria Cisneros MD Unavailable [phone] Encounter Details Date Type Department Care Team (Late st Contact Info) Description 12/11/2023 [facility] Medical Advice [facility] [address] [address] Margaret Reyes [facility] Social History Tobacco Use Types Packs/Day Years Used Date Smoking Tobacco: Never Passive Smoke Exposure: Never Smokeless Tobacco: Never Alcohol Use Standard Drinks/Week Comments Yes 0 (1 standard drink = 0.6 oz pur e alcohol) Occ. PHQ-2 Answer Date Recorded PHQ-2 Score 0 11/09/2023 Adolescent Education Answer Date Record ed Getting School Help Needed Not on file 04/27 Comments Unknown Sex and Gender Information Value Date Recorded Sex Assigned at Female 11/23/2021 4:43 PM CDT Legal Sex Female 10:31 AM CDT Gender Identity Female 11/23/2021 4:43 PM CDT Sexual Orientation Bisexual 11/23/2021 4: 43 PM CDT documented as of this encounter Plan of Treatment Upcoming Encounters Date Type Department Care Team (Late st Contact Info) Description 10/06/2024 10:30 AM REHAB PHYSICIAN Office Visit [facility] [address] 9th Fl Clin 9A [place] [address] Shaan Ramirez MD [address] [place] [address] [id number] 03/09/2025 2:00 PM CDT Virtual Visit [address] [place] [address] Adria Cisneros MD 515 [facility] [address] [place], [place] [address] documented as of this encounter Visit Diagnoses Not on filedocumented in this encounter Additional Health Concerns Assessment Noted Time PHQ-9 Depression Total Score: 4 12/25/19 23 2:25 PM CDT documented as of this encounter Care Teams Braddisher Relationship Specialty Start Date End Date Luis Ambriz MD [facility] [address] [place] [address] PCP - General Family Medicine 02/16/22 Bola Amor, PRESS TENDER [employer], [facility] [address] [facility] [address] [place] [address] Assigned Behavioral Health Provider 12/04/21 06/27/24 Shaan Ramirez MD [address] [place] [address] Assigned Surgical Provider 12/04/[address] MD [address] [place] [address] Assigned Rheumatology Provider 02/25/22 02/25/24 Nini Patten MD [address] [place] [address] Endocrinology, Diabetes, and Metabolism 08/29/22 Nini Patten MD [address] [place] [address] Assigned Endocrinology Provider 01/20/23 Margaret Reyes [facility] Pharmacist 08/10/23 Adria Cisneros MD [address] [place] [address] Rheumatology 11/09/23 Adria Cisneros MD [address] [place] [address] Rheumatology 11/09/23 Adria Cisneros MD [address] [place] [address] Assigned Rheumatology Provider 02/26/24 Margaret Reyes [facility] Assigned MTM Pharmacist 06/28/24 Adria Cisneros MD [address] [place] [address] Rheumatology 08/01/24 documented as of this encounter
--- OUTSIDE RECORDS SUMMARY | 2024-09-07 18:28 | XMS_ITS | Encounter Summary ---
Author Organization [place] Address [address] [place] [address] Care Team Providers Care Clinical Staff Pharmacist Name Role Phone ZuleymaBola [facility] Unavailable [phone] Shaan Ramirez MD Unavailable [phone] Luis Ambriz MD Primary Care Provider [phone] MD Unavailable [phone] Nini Patten MD Unavailable [phone] Nini Patten MD Unavailable [phone] Margaret Reyes [facility] Unavailable Unavailable Adria Cisneros MD Unavailable [phone] Adria Cisneros MD Unavailable [phone] Adria Cisneros MD Unavailable [phone] Margaret Reyes [facility] Unavailable Unavailable Adria Cisneros MD Unavailable [phone] Encounter Details Date Type Department Care Team (Late st Contact Info) Description 09/13/2022 [facility] Medical Advice [facility] [address] [address] MD [facility] Rheumatology [address] [place] [address] Social History Tobacco Use Types Packs/Day Years Used Date Smoking Tobacco: Never Smokeless Tobacco: Never PHQ-2 Answer Date Recorded PHQ-2 Score 3 09/11/2022 Comments Unknown Sex and Gender Information Value [...] at 10A Jayla Elise RN Rhe[facility]ology [facility] ER RELINER * Telephone Encounter - Jayla Elise RN - 09/13/2022 2:37 PM CSTSummary: patient update on culture results Spoke to patient regarding her MyC message update about staph infection. Reporting she saw enrollment management manager, Dr. Francisca Lomeli at [facility] d/t recurrent skin infections. This visit included a nasal swab/culture of her nares. Patient has included a copy of the visit note and will upload the culture results later today whichpatient reports was positive for Staph infection. Craft Recruiter is recommending extensive antbx regime. Patient verifies she 1-is not taking methotrexate 2-will recheck her labs on 09/25 3--stopped humira apprx 6 wks ago on her own thinking it was causing her repeated infections. Message update to Dr. Lane. ER RELINER ER RELINER documented in this encounter Plan of Treatment Upcoming Encounters Date Type Department Care Team (Late st Contact Info) Description 10/06/2024 10:30 AM BOILER RELINER Office Visit [facility] Eye [facility] [address] [facility] 9th Fl Clin [address]A [place] [address] Shaan Ramirez MD [address] [place] [address] 03/09/2025 2:00 PM CDT Virtual Visit [facility] [address] [place] [address] Adria Cisneros MD [address] [id number] documented as of this encounter Visit Diagnoses Not on filedocumented in this encounter Additional Health Concerns Assessment Noted Time PHQ-9 Depression Total Score: 10 023 9:59 AM BOILER RELINER documented as of this encounter Care Teams Clinical Staff Pharmacist Relationship Specialty Start Date End Date Luis Ambriz MD [facility] [address] [place] [address] PCP - General Family Medicine 02/16/22 Bola Amor, [facility] [address] [facility] [address] [place] [address] Assigned Behavioral Health Provider 12/04/21 06/27/24 Shaan Ramirez MD [address] [place] [address] Assigned Surgical Provider 12/04/[address] MD [address] [place] [address] Assigned Rheumatology Provider 02/25/22 02/25/24 Nini Patten MD [address] [place] [address] Endocrinology, Diabetes, and Metabolism 08/29/22 Nini Patten MD [address] [place] [address] Assigned Endocrinology Provider 01/20/23 Margaret Reyes [facility] Pharmacist 08/10/23 Adria Cisneros MD [address] [place] [address] Rheumatology 11/09/23 Adira Cisneros MD [address] [place] [address] Rheumatology 11/09/23 Adria Cisneros MD [address] [place] [address] Assigned Rheumatology Provider 02/26/24 Margaret Reyes [facility] Assigned MTM Pharmacist 06/28/24 Adria Cisneros MD [address] [place] [address] Rheumatology 08/01/24 documented as of this encounter
--- OUTSIDE RECORDS SUMMARY | 2024-09-07 18:28 | XMS_ITS | Encounter Summary ---
Author Organization [place] Address [address] [place] [address] Care Team Providers Care Cms Expert Name Role Phone ZuleymaBola [facility], [facility] Unavailable [phone] Shaan Ramirez MD Unavailable [phone] Luis Ambriz MD Primary Care Provider [phone] MD Unavailable [phone] Nini Patten MD Unavailable [phone] Nini Patten MD Unavailable [phone] Margaret Reyes [facility] Unavailable Unavailable Adria Cisneros MD Unavailable [phone] Adria Cisneros MD Unavailable [phone] Adria Cisneros MD Unavailable [phone] Margaret Reyes [facility] Unavailable Unavailable Adria Cisneros MD Unavailable [phone] Encounter Details Date Type Department Care Team (Late st Contact Info) Description 01/04/2023 [facility] Medical Advice [facility]ology [facility] [address] [place] [address] Rika Adler CMA Social History Tobacco Use Types Packs/Day Years Used Date Smoking Tobacco: Never Smokeless Tobacco: Never PHQ-2 Answer Date Recorded PHQ-2 Score 1 12/25/2022 Comments Unknown Sex and Gender Information Value Date Recorded Sex Assigned at Female 11/23/2021 4:43 PM CDT Legal Sex Female 10:31 AM CDT Gender Identity Female 11/23/2021 4:43 PM CDT Sexual Orientation Bisexual 11/23/2021 4: 43 PM CDT documented as of this encounter Plan of Treatment Upcoming Encounters Date Type Department Care Team (Late st Contact Info) Description 10/06/2024 10:30 AM PRIMARY MILL ROLLER Office Visit [facility] [place] [facility] [address] [facility] 9th Fl Clin [address] [place] [address] Shaan Ramirez MD 6 [place] [address] 03/09/2025 2:00 PM CDT Virtual Visit [facility] [address] [place] [address] Adria Cisneros MD 515 [facility] 88 [place], [place] [address] documented as of this encounter Visit Diagnoses Not on filedocumented in this encounter Additional Health Concerns Assessment Noted Time PHQ-9 Depression Total Score: 4 12/25/19 23 2:25 PM CDT documented as of this encounter Care Teams Cms Expert Relationship Specialty Start Date End Date Luis Ambriz MD [facility] [address] [place] [address] PCP - General Family Medicine 02/16/22 Bola Amor, COMPUTER NUMERICAL CONTROL MACHINIST, [facility] [address] [place] [address] [place] [address] Assigned Behavioral Health Provider 12/04/21 06/27/24 Shaan Ramirez MD [address] [place] [address] Assigned Surgical Provider 12/04/[address] MD [address] [place] [address] Assigned Rheumatology Provider 02/25/22 02/25/24 Nini Patten MD [address] [place] [address] Endocrinology, Diabetes, and Metabolism 08/29/22 Nini Patten MD [address] [place] [address] Assigned Endocrinology Provider 01/20/23 Margaret Reyes [facility] Pharmacist 08/10/23 Adria Cisneros MD [address] [place] [address] Rheumatology 11/09/23 Adria Cisneros MD [address] [place] [address] Rheumatology 11/09/23 Adria Cisneros MD [address] [place] [address] Assigned Rheumatology Provider 02/26/24 Margaret Reyes [facility] Assigned MTM Pharmacist 06/28/24 Adria Cisneros MD [address] [place] [address] Rheumatology 08/01/24 documented as of this encounter
--- OUTSIDE RECORDS SUMMARY | 2024-09-07 18:28 | XMS_ITS | Encounter Summary ---
Author Organization [place] Address [address] [place] [address] Care Team Providers Care Liability Claims Representative Name Role Phone ZuleymaBola [facility], [facility] Unavailable +[phone] Shaan Ramirez MD Unavailable +[phone] Luis Ambriz MD Primary Care Provider [phone] MD Unavailable [phone] Nini Patten MD Unavailable [phone] Nini Patten MD Unavailable +[phone] Margaret Reyes [facility] Unavailable Unavailable Adria Cisneros MD Unavailable +[phone] Adria Cisneros MD Unavailable [phone] Adria Cisneros MD Unavailable +[phone] Margaret Reyes [facility] Unavailable Unavailable Adria Cisneros MD Unavailable +[phone] Encounter Details Date Type Department Care Team (Late st Contact Info) Description 02/02/[address] [address] [place] Social History Tobacco Use Types Packs/Day Years Used Date Smoking Tobacco: Never Smokeless Tobacco: Never PHQ-2 Answer Date Recorded PHQ-2 Score 1 02/02/2022 Comments Unknown Sex and Gender Information Value Date Recorded Sex Assigned at Female 11/23/2021 4:43 PM CDT Legal Sex Female 10:31 AM CDT Gender Identity Female 11/23/2021 4:43 PM CDT Sexual Orientation Bisexual 11/23/2021 4: 43 PM CDT documented as of this encounter Plan of Treatment Upcoming Encounters Date Type Department Care Team (Late st Contact Info) Description 10/06/2024 10:30 AM UPHOLSTERY HANDLER Office Visit [facility] [place] [facility] [address] [facility] 9th Fl Clin 9A [place] [address] Shaan Ramirez MD 6 [place] [address] 03/09/2025 2:00 PM CDT Virtual Visit [address] [place] [address] Adria Cisneros MD 515 [facility] 88 [place], [place] 4[address]85 documented as of this encounter Visit Diagnoses Not on filedocumented in this encounter Additional Health Concerns Assessment Noted Time PHQ-9 Depression Total Score: 6 02/03/20 22 9:26 AM CDT documented as of this encounter Care Teams Liability Claims Representative Relationship Specialty Start Date End Date Luis Ambriz MD [facility] [address] [place] [address] PCP - General Family Medicine 02/16/22 Bola Amor, UNDERGROUND BOLTING MACHINE OPERATOR, [facility] [address] [place] [address] Assigned Behavioral Health Provider 12/04/21 06/27/24 Shaan Ramirez MD [address] [place] [address] Assigned Surgical Provider 12/04/[address] MD [address] [place] [address] Assigned Rheumatology Provider 02/25/22 02/25/24 Nini Patten MD 909 [place] [address] Endocrinology, Diabetes, and Metabolism 08/29/22 Nini Patten MD [address] [place] [address] Assigned Endocrinology Provider 01/20/23 Margaret Reyes [facility] Pharmacist 08/10/23 Adria Cisneros MD [address] [place] [address] Rheumatology 11/09/23 Adria Cisneros MD [address] [place] [address] Rheumatology 11/09/23 Adria Cisneros MD [address] [place] [address] Assigned Rheumatology Provider 02/26/24 Margaret Reyes [facility] Assigned MTM Pharmacist 06/28/24 Adria Cisneros MD [address] [place] [address] Rheumatology 08/01/24 documented as of this encounter
--- OUTSIDE RECORDS SUMMARY | 2024-09-07 18:28 | XMS_ITS | Encounter Summary ---
Author Organization [place] Address [address] [place] [address] Care Team Providers Care Feather Maker Name Role Phone ZuleymaBola [facility], [facility] Unavailable +[phone] Shaan Ramirez MD Unavailable [phone] Luis Ambriz MD Primary Care Provider [phone] MD Unavailable [phone] Nini Patten MD Unavailable [phone] Nini Patten MD Unavailable +[phone] Margaret Reyes [facility] Unavailable Unavailable Adria Cisneros MD Unavailable [phone] Adria Cisneros MD Unavailable [phone] Adria Cisneros MD Unavailable [phone] Margaret Reyes [facility] Unavailable Unavailable Adria Cisneros MD Unavailable [phone] Encounter Details Date Type Department Care Team (Late st Contact Info) Description 07/06/2023 [facility] [address] [place] [address] Baljinder Friend Social History Tobacco Use Types [...] st Contact Info) Description 10/06/2024 10:30 AM STATISTICAL FINANCIAL ANALYST Office Visit [facility] 9th Fl Clin 9A [place] [address] Shaan Ramirez MD 6 [place], [place] 09[address] 03/09/2025 2:00 PM CDT Virtual Visit [place] [address] [address] [place] [address] Adria Cisneros MD 515 [facility] 88 [place] [address] documented as of this encounter Visit Diagnoses Not on filedocumented in this encounter Additional Health Concerns Assessment Noted Time PHQ-9 Depression Total Score: 4 12/25/19 23 2:25 PM CDT documented as of this encounter Care Teams Feather Maker Relationship Specialty Start Date End Date Luis Ambriz MD [facility] [address] [place] [address] PCP - General Family Medicine 02/16/22 Bola Amor, ENVIRONMENTAL JOURNALIST, [facility] [address] [place] [address] Assigned Behavioral Health Provider 12/04/21 06/27/24 Shaan Ramirez MD [address] [place] [address] Assigned Surgical Provider 12/04/[address] MD [address] [place] [address] Assigned Rheumatology Provider 02/25/22 02/25/24 Nini Patten MD [address] [place] [address] Endocrinology, Diabetes, and Metabolism 08/29/22 Nini Patten MD [address] [place] [address] Assigned Endocrinology Provider 01/20/23 Margaret Reyes [facility] Pharmacist 08/10/23 Adria Cisneros MD [address] [place] [address] Rheumatology 11/09/23 Adria Cisneros MD [address] [place] [address] Rheumatology 11/09/23 Adria Cisneros MD [address] [place] [address] Assigned Rheumatology Provider 02/26/24 Margaret Reyes [facility] Assigned MTM Pharmacist 06/28/24 Adria Cisneros MD [address] [place] [address] Rheumatology 08/01/24 documented as of this encounter
--- OUTSIDE RECORDS SUMMARY | 2024-09-07 18:28 | XMS_ITS | Encounter Summary ---
Author Organization [place] Address [address] [place] [address] Care Team Providers Care Crab Picker Name Role Phone ZuleymaBola [facility], [facility] Unavailable +[phone] Shaan Ramirez MD Unavailable [phone] Luis Ambriz MD Primary Care Provider [phone] MD Unavailable [phone] Nini Patten MD Unavailable [phone] Nini Patten MD Unavailable [phone] Margaret Reyes [facility] Unavailable Unavailable Adria Cisneros MD Unavailable [phone] Adria Cisneros MD Unavailable [phone] Adria Cisneros MD Unavailable [phone] Margaret Reyes [facility] Unavailable Unavailable Adria Cisneros MD Unavailable [phone] Reason for Visit * Reason Onset Date Comments Lab Orders 01/11/2023 Fax to [facility] at [phone] Encounter Details Date Type Department Care Team (Latest Contact Info) Description 01/11/2023 [facility] Natasha Naranjo [facility] Rhe[facility]ology Clinic [address] [address] MD Health [facility], Rheumatology [address] [place] [address] Lab Orders (Fax to [facility] at 50... Social History Tobacco Use Types Packs/Day Years Used Date Smoking Tobacco: Never Smokeless Tobacco: Never PHQ-2 Answer Date Recorded PHQ-2 Score 0 01/15/2023 Comments Unknown Sex and Gender Information Value [...] Lab orders have been successfully faxed to [facility] as requested. Confirmed via [employer]fax. Amber Orozco CMA 01/15/2023 10:41 AM documented in this encounter Plan of Treatment Upcoming Encounters Date Type Department Care Team (Late st Contact Info) Description 10/06/2024 10:30 AM LUMBER SORTER Office Visit [facility] [address] 9[facility] Clin 9A [place] [address] Shaan Ramirez MD [address] [place] [address]205 03/09/2025 2:00 PM CDT Virtual Visit [address] [address] Adria Cisneros MD [address] [place] [address] 591405 documented as of this encounter Visit Diagnoses Not on filedocumented in this encounter Additional Health Concerns Assessment Noted Time PHQ-9 Depression Total Score: 4 12/25/19 23 2:25 PM CDT documented as of this encounter Care Teams Crab Picker Relationship Specialty Start Date End Date Luis Ambriz MD [facility] [address] [place] [address] PCP - General Family Medicine 02/16/22 Bola Amor, [facility], [facility] [address] [place] [address] Assigned Behavioral Health Provider 12/04/21 06/27/24 Shaan Ramirez MD [address] [place] [address] 621475 Assigned Surgical Provider 12/04/[address] MD [address] [place] [address] 022115 Assigned Rheumatology Provider 02/25/22 02/25/24 Nini Patten MD [address] [place] [address] Endocrinology, Diabetes, and Metabolism 08/29/22 Nini Patten MD [address] [place] [address] Assigned Endocrinology Provider 01/20/23 Margaret Reyes, [facility] Pharmacist 08/10/23 Adria Cisneros MD [address] [place] [address] 602505 Rheumatology 11/09/23 Adria Cisneros MD [address] [place] [address] Rheumatology 11/09/23 Adria Cisneros MD [address] [place] [address] Assigned Rheumatology Provider 02/26/24 Margaret Reyes [facility] Assigned MTM Pharmacist 06/28/24 Adria Cisneros MD [address] [place] [address] Rheumatology 08/01/24 documented as of this encounter
--- OUTSIDE RECORDS SUMMARY | 2024-09-07 18:28 | XMS_ITS | Encounter Summary ---
Author Organization [place] Address [address] [place] [address] Care Team Providers Care Fats And Oils Loader Name Role Phone Zuleyma, Christalromancamila Naranjo [facility], [facility] Unavailable +[phone] Shaan Ramirez MD Unavailable [phone] Luis Ambriz MD Primary Care Provider [phone] MD Unavailable [phone] Nini Patten MD Unavailable [phone] Nini Patten MD Unavailable [phone] Margaret Reyes [facility] Unavailable Unavailable Adria Cisneros MD Unavailable [phone] Adria Cisneros MD Unavailable [phone] Adria Cisneros MD Unavailable [phone] Margaret Reyes [facility] Unavailable Unavailable Adria Cisneros MD Unavailable [phone] Encounter Details Date Type Department Care Team (Late st Contact Info) Description 01/07/2022 [facility] [place] [facility] [place] [id number] [facility] [address] [address] Shaan Ramirez MD [address] [place] [address] 100085 Intermediate uveitis of both eyes (Primary Dx) Social History Tobacco Use Types Packs/Day Years Used Date Smoking Tobacco: Never Smokeless Tobacco: Never PHQ-2 Answer Date Recorded PHQ-2 Score 4 01/05/2022 Comments Unknown Sex and Gender Information Value [...] st Contact Info) Description 10/06/2024 10:30 AM HEM INSPECTOR Office [facility] Eye [address] 9th Fl Clin 9A [place] [address] Shaan Ramirez MD [address] [place] [address] 310725 03/09/2025 2:00 PM CDT Virtual Visit [address] [place] [address] Adria Cisneros MD [address] [place] [address] 012835 documented as of this encounter Visit Diagnoses Diagnosis Intermediate uveitis of both eyes- Primary documented in this encounter Additional Health Concerns Assessment Noted Time PHQ-9 Depression Total Score: 7 01/05/20 22 12:23 PM CDT documented as of this encounter Care Teams Fats And Oils Loader Relationship Specialty Start Date End Date Luis Ambriz MD [facility] [address] [place] [address] PCP - General Family Medicine 02/16/22 Bola Amor, PAPER CUTTING MACHINE OPERATOR, [facility] [address] [place] [address] Assigned Behavioral Health Provider 12/04/21 06/27/24 Shaan Ramirez MD [address] [place] [address] 20350 Assigned Surgical Provider 12/04/[address] MD [address] [place] [address] Assigned Rheumatology Provider 02/25/22 02/25/24 Nini Patten MD [address] [place] [address] Endocrinology, Diabetes, and Metabolism 08/29/22 Nini Patten MD [address] [place] [address] 32846 Assigned Endocrinology Provider 01/20/23 Margaret Reyes RPH Pharmacist 08/10/23 Adria Cisneros MD [address] [place] [address]335 Rheumatology 11/09/23 Adria Cisneros MD [address] [place] [address]64 Rheumatology 11/09/23 Adria Cisneros MD [address] [place] [address] 33623 Assigned Rheumatology Provider 02/26/24 Margaret Reyes RPH Assigned MTM Pharmacist 06/28/24 Adria Cisneros MD [address] [place] [address] Rheumatology 08/01/24 documented as of this encounter
--- OUTSIDE RECORDS SUMMARY | 2024-09-07 18:28 | XMS_ITS | Encounter Summary ---
Author Organization [place] Address [address] [place] [address] Care Team Providers Care Manager Transfusion Name Role Phone ZuleymaBola [facility], [facility] Unavailable +[phone] Shaan Ramirez MD Unavailable [phone] Luis Ambriz MD Primary Care Provider [phone] MD Unavailable [phone] Nini Patten MD Unavailable [phone] Nini Patetn MD Unavailable [phone] Margaret Reyes [facility] Unavailable Unavailable Adria Cisneros MD Unavailable [phone] Adria Cisneros MD Unavailable [phone] Adria Cisneros MD Unavailable [phone] Margaret Reyes [facility] Unavailable Unavailable Adria Cisneros MD Unavailable [phone] Encounter Details Date Type Department Care Team (Late st Contact Info) Description 02/24/2022 [facility] Medical Advice [facility] Rheumatology Clinic [address] [address] MD Health [facility], Rheumatology [address] [place] [address] Social History Tobacco Use Types Packs/Day [...] st Contact Info) Description 10/06/2024 10:30 AM APPLICATIONS SALES CONSULTANT Office Visit [facility] [address] [facility] 9th Md Clin 9A [place] [address] Shaan Ramirez MD [address] [place] [address] 635025 03/09/2025 2:00 PM CDT Virtual Visit [facility] [address] [place] [address] Adria Cisneros MD [address] [place] [address] 88 [place], [place] 400215 documented as of this encounter Visit Diagnoses Not on filedocumented in this encounter Additional Health Concerns Assessment Noted Time PHQ-9 Depression Total Score: 6 02/03/20 22 9:26 AM CDT documented as of this encounter Care Teams Manager Transfusion Relationship Specialty Start Date End Date Luis Ambriz MD [facility] [address] [place] [address] PCP - General Family Medicine 02/16/22 Bola Amor, COLLECTIONS TECHNICIAN, [facility] [address] [facility] 180 [place], [place] [phone] Assigned Behavioral Health Provider 12/04/21 06/27/24 Shaan Ramirez MD [address] [place] [address] 924275 Assigned Surgical Provider 12/04/[address] MD [address] [place] [address] 588515 Assigned Rheumatology Provider 02/25/22 02/25/24 Nini Patten MD [address] [place] [address] 866875 Endocrinology, Diabetes, and Metabolism 08/29/22 Nini Patten MD [address] [place] [address] 954105 Assigned Endocrinology Provider 01/20/23 Margaret Reyes [facility] Pharmacist 08/10/23 Adria Cisneros MD [address] [place] [address] Rheumatology 11/09/23 Adria Cisneros MD [address] [place] [address] Rheumatology 11/09/23 Adria Cisneros MD [address] [place] [address] 17489 Assigned Rheumatology Provider 02/26/24 Margaret Reyes RPH Assigned MTM Pharmacist 06/28/24 Adria Cisneros MD [address] [place] [address] 86201 Rheumatology 08/01/24 documented as of this encounter
--- OUTSIDE RECORDS SUMMARY | 2024-09-07 18:28 | XMS_ITS | Encounter Summary ---
Author Organization [place] Address [address] [place] [address] Care Team Providers Care Mobile Security Architect Name Role Phone ZuleymaBola [facility], [facility] Unavailable +[phone] Shaan Ramirez MD Unavailable [phone] Luis Ambriz MD Primary Care Provider [phone] MD Unavailable [phone] Nini Patten MD Unavailable [phone] Nini Patten MD Unavailable +[phone] Margaret Reyes [facility] Unavailable Unavailable Adria Cisneros MD Unavailable [phone] Adria Cisneros MD Unavailable [phone] Adria Cisneros MD Unavailable [phone] Margaret Reyes [facility] Unavailable Unavailable Adria Cisneros MD Unavailable +[phone] Encounter Details Date Type Department Care Team (Late st Contact Info) Description 05/17/2022 [facility] Advice [facility] Rhe[facility] [address] [address] MD Health [facility], Rheumatology [address] [place] [address] Social History Tobacco Use Types Packs/Day Years Used Date Smoking Tobacco: Never Smokeless Tobacco: Never PHQ-2 Answer Date Recorded PHQ-2 Score 2 03/27/2022 Comments Unknown Sex and Gender Information Value [...] encounter Miscellaneous Notes * Telephone Encounter - Eileen Piedra - 05/17/2022 11:50 AM CDT Pt was [...] Upcoming Encounters Date Type Department Care Team ([facility] st Contact Info) Description 10/06/2024 10:30 AM HEAD CAGER Office Visit [facility] Eye [facility] - [address] 9[facility] Clin 9A [place] [address] Shaan Ramirez MD [address] [place] [address] [phone] 03/09/2025 2:00 PM CDT Virtual Visit [address] [address] Adria Cisneros MD [address] [place] [address] 621485 documented as of this encounter Visit Diagnoses Not on filedocumented in this encounter Additional Health Concerns Assessment Noted Time PHQ-9 Depression Total Score: 4 03/27/20 22 9:21 AM CDT documented as of this encounter Care Teams Mobile Security Architect Relationship Specialty Start Date End Date Luis Ambriz MD [facility] [address] [place] [address] PCP - General Family Medicine 02/16/22 Bola Amor, TRANSMITTER CHIEF, [facility] [address] [place] [address] Assigned Behavioral Health Provider 12/04/21 06/27/24 Shaan Ramirez MD [address] [place] [address] 606015 Assigned Surgical Provider 12/04/[address] MD [address] [place] [address] 322245 Assigned Rheumatology Provider 02/25/22 02/25/24 Nini Patten MD [address] [place] [address] Endocrinology, Diabetes, and Metabolism 08/29/22 Nini Patten MD [address] [place] [address] Assigned Endocrinology Provider 01/20/23 Margaret Reyes, [facility] Pharmacist 08/10/23 Adria Cisneros MD [address] [place] [address] 263635 Rheumatology 11/09/23 Adria Cisneros MD [address] [place] [address] Rheumatology 11/09/23 Adria Cisneros MD [address] [place] [address] 66200 Assigned Rheumatology Provider 02/26/24 Margaret Reyes [facility] Assigned MTM Pharmacist 06/28/24 Adria Cisneros MD [address] [place] [address] 87136 Rheumatology 08/01/24 documented as of this encounter
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
--- OUTSIDE RECORDS SUMMARY | 2024-09-07 18:29 | XMS_ITS | Encounter Summary ---
Author Organization [place] Address [address] [place] [address] Care Team Providers Care Sales Correspondent Name Role Phone Shaan Ramirez MD Unavailable [phone] Luis Ambriz MD Primary Care Provider [phone] Nini Patten MD Unavailable [phone] Nini Patten MD Unavailable [phone] Margaret Reyes [facility] Unavailable Unavailable Adria Cisneros MD Unavailable [phone] Adria Cisneros MD Unavailable [phone] Adria Cisneros MD Unavailable [phone] Margaret Reyes [facility] Unavailable Unavailable Adria Cisneros MD Unavailable [phone] Reason for Visit * Reason Comments New Med Request Encounter Details Date Type Department Care Team (Late st Contact Info) Description 09/03/2024 [facility] Rheumatology Clinic [address] [address] Adria Cisneros MD [address] [place] [address] New Med Request Social History Tobacco Use Types Packs/Day [...] st Contact Info) Description 10/06/2024 10:30 AM DIRECTOR EMPLOYMENT Office Visit [facility] Eye [place] [phone] [facility] 9th Ms Clin [address] [place] [address] Shaan Ramirez MD [address] [place] [phone] 03/09/2025 2:00 PM CDT Virtual Visit [address] [place] [phone] Adria Cisneros MD [address] [phone] documented as of this encounter Visit Diagnoses Diagnosis Psoriasis Other psoriasis documented in this encounter Additional Health Concerns Assessment Noted Time PHQ-9 Depression Total Score: 5 08/01/20 24 7:42 AM DIRECTOR EMPLOYMENT documented as of this encounter Care Teams Sales Correspondent Relationship Specialty Start Date End Date Luis Ambriz MD [facility] [address] [place] [address] PCP - General Family Medicine 02/16/22 Shaan Ramirez MD [address] [place] [address] Assigned Surgical Provider 12/04/21 Nini Patten MD [address] [place] [address] Endocrinology, Diabetes, and Metabolism 08/29/22 Nini Patten MD [address] [place] [address] Assigned Endocrinology Provider 01/20/23 Margaret Reyes [facility] Pharmacist 08/10/23 Adria Cisneros MD [address] [place] [address] Rheumatology 11/09/23 Adria Cisneros MD [address] [place] [address] Rheumatology 11/09/23 Adria Cisneros MD [address] [place] [address] Assigned Rheumatology Provider 02/26/24 Margaret Reyes [facility] Assigned MTM Pharmacist 06/28/24 Adria Cisneros MD [address] [place] [address] Rheumatology 08/01/24 documented as of this encounter
--- OUTSIDE RECORDS SUMMARY | 2024-09-07 18:29 | XMS_ITS | Encounter Summary ---
Author Organization [place] Address [address] [place] [address] Care Team Providers Care Emergency Dept Tech Name Role Phone Shaan Ramirez MD Unavailable [phone] Luis Ambriz MD Primary Care Provider [phone] Nini Patten MD Unavailable [phone] Nini Patten MD Unavailable [phone] Margaret Reyes [facility] Unavailable Unavailable Adria Cisneros MD Unavailable [phone] Adria Cisneros MD Unavailable [phone] Adria Cisneros MD Unavailable [phone] Margaret Reyes [facility] Unavailable Unavailable Adria Cisneros MD Unavailable [phone] Reason for Visit * Reason Onset Date Comments Prior Auth - Medication 08/21/2024 Xelmasha Encounter Details Date Type Department Care Team (Late st Contact Info) Description 08/21/2024 [facility] Rheumatology Clinic [address] [address] Adria Cisneros MD [address] [place] [address] Prior Auth - Medication (Xeljanz ) Social History Tobacco Use Types Packs/Day [...] encounter Miscellaneous Notes * Telephone Encounter - Rajeev Kaufman - 08/21/2024 2:26 PM CST Images from the original note were not included. PA Initiation Medication: XELJANZ 5 MG PO TABS Insurance Company: [employer] [facility] Prior Auth Dept, phone , Fax Pharmacy Filling the Rx: [facility] YELENA CANSECO - [facility] KIET MENDOZA Filling Pharmacy Phone: Filling Pharmacy Fax: Start Date: 08/21/2024 [id number] ERCIAL ESCROW ASSISTANT documented in this encounter Plan of Treatment Upcoming Encounters Date Type Department Care Team (Late st Contact Info) Description 10/06/2024 10:30 AM COMMERCIAL ESCROW ASSISTANT Office Visit [facility] - [address] 9[facility] Clin [address] [place] [address] Shaan Ramirez MD [address] [place] [address] [id number] 03/09/2025 2:00 PM CDT Virtual Visit [address] [address] Adria Cisneros MD [address] [place] [address] [phone] documented as of this encounter Visit Diagnoses Not on filedocumented in this encounter Additional Health Concerns Assessment Noted Time PHQ-9 Depression Total Score: 5 08/01/20 24 7:42 AM COMMERCIAL ESCROW ASSISTANT documented as of this encounter Care Teams Emergency Dept Tech Relationship Specialty Start Date End Date Luis Ambriz MD [facility] [address] [place] [address] PCP - General Family Medicine 02/16/22 Shaan Ramirez MD [address] [place] [address] [id number] Assigned Surgical Provider 12/04/21 Nini Patten MD [address] [place] [address] 701345 Endocrinology, Diabetes, and Metabolism 08/29/22 Nini Patten MD [address] [place] [address] [id number] Assigned Endocrinology Provider 01/20/23 Margaret Reyes RPH Pharmacist 08/10/23 Adria Cisneros MD [address] [place] [address] 423885 Rheumatology 11/09/23 Adria Cisneros MD [address] [place] [address] [phone] Rheumatology 11/09/23 Adria Cisneros MD [address] [place] [address] 25[address] Assigned Rheumatology Provider 02/26/24 Margaret Reyes RPH Assigned MTM Pharmacist 06/28/24 Adria Cisneros MD [address] [place] [address] Rheumatology 08/01/24 documented as of this encounter
--- OUTSIDE RECORDS SUMMARY | 2024-09-07 18:29 | XMS_ITS | Encounter Summary ---
Author Organization [place] Address [address] [place] [address] Care Team Providers Care Salon Shampoo Assistant Name Role Phone Shaan Ramirez MD Unavailable [phone] Luis Ambriz MD Primary Care Provider [phone] Nini Ptaten MD Unavailable [phone] Nini Patten MD Unavailable [phone] Margaret Reyes [facility] Unavailable Unavailable Adria Cisneros MD Unavailable [phone] Adria Cisneros MD Unavailable [phone] Adria Cisneros MD Unavailable [phone] Margaret Reyes [facility] Unavailable Unavailable Adria Cisneros MD Unavailable [phone] Reason for Visit * Reason Comments RECHECK Encounter Details Date Type Department Care Team (Late st Contact Info) Description 08/01/2024 8:00 AM BROKER ASSISTANT Virtual Visit [facility] Rheumatology Clinic [address] [address] Adria Cisneros MD [address] [place] [address] MCFP methotrexate user (Primary Dx); Psoriasis; Intermediate uveitis of both eyes; Hidradenitis suppurativa; Long-term current use of tofacitinib Social History [...] 106.6 kg (235 lb) 08/01/2024 7:40 AM BROKER ASSISTANT Height 167.6 cm (5' 6) 08/01/2024 7:40 AM BROKER ASSISTANT Body Mass Index 37.93 08/01/2024 7:40 AM BROKER ASSISTANT documented in this encounter Patient Instructions * Patient Instructions* Adria Cisneros MD - 08/01/2024 8:00 AM BROKER ASSISTANT Diagnosis: 1. Psoriasis, ears; 2. Intermediate uveitis, cystoid macular edema: Improved on combination therapy 3. Hidradenitis suppurativa Plan: 1. Continue tofacitinib 5 mg,1 tablet twice daily. Hold medication for high [...] with ophthalmology as recommended by Dr. Ramirez. 4. Follow-up with dermatology as recommended 5. Recheck CBC with platelets, AST and ALT in August 2024. ER ASSISTANT documented in this encounter Progress Notes * Adria Cisneros MD - 08/01/2024 8:00 AM CST Images from the original note were not included. Virtual Visit Details Type of service: Video Visit Originating Location (pt. Location): Home Distant Location (provider location): On-site Platform used for Video Visit: [facility] Rheumatology Clinic Visit Adria Cisneros M.D. Amelia Sr Date of : 1975 Age: [age] year old Date of Visit: 08/01/2024 Primary care provider: Luis Ambriz Assessment & Plan: # Persistent/recurrent uveitis/iritis/cystoid macular edema # psoriasis, external ears # Hidradenitis suppurativa Patient relates stability of hidradenitis symptoms, and significant improvement in psoriasis on theexternal auricles both ears. Video exam today shows resolution of former erythema with fine silveryscale over superior external auricles both sides. Data: Creatinine, albumin, transaminases, CRP, CBC were all normal except for platelet count of 137,000. Discussion: Ocular symptoms and signs, as well as psoriasis and hidradenitis suppurativa, remain well controlled with combination methotrexate and tofacitinib (started September 2023) therapy. I recommend continuing monitoring labs every 3 months for CBC with platelets, creatinine, LFTs, fasting lipid panel, continuing tofacitinib 5 mg twice daily. Continue low-dose methotrexate as an adjunct for management of psoriasis as well as iridocyclitis. # High risk medication use: We discussed recent minimally decreased platelet count, and minimally elevated ALT in May 2024.These changes could be due to combination methotrexate and tofacitinib. I recommend simply rechecking CBC with platelets and transaminases in several weeks. If abnormalities continue, will recommend trial of with holding methotrexate for several weeks and rechecking labwork. --Risks and benefits of methotrexate and xeljanz reviewed today to include infection, BM suppression, GI/hepatoxicity, malignancy among others. Patient knows not to consume ETOH. Patient knows drugs are not compatible with conception/. Patient is agreeable with continuing medication. We discussed in clinic: Diagnosis: 1. Psoriasis, ears; 2. Intermediate uveitis, cystoid macular edema: Improved on combination therapy 3. Hidradenitis suppurativa Plan: 1. Continue tofacitinib 5 mg,1 tablet twice daily. Hold medication for high [...] with ophthalmology as recommended by Dr. Ramirez. 4. Follow-up with dermatology as recommended 5. Recheck CBC with platelets, AST and ALT in August 2024. RTC 8 mos Adria Cisneros MD Staff Motorcycle Assembler, [facility] On the day of the encounter, [...] management and with ongoing continuity of care. No orders of the defined types were placed in this encounter. Orders Placed This Encounter Procedures CBC with platelets AST ALT Albumin level Creatinine Lipid panel reflex to direct LDL Fasting Subjective: Patient presents for follow-up. I last saw patient in follow-up of recurrent uveitis, psoriasis, and hidradenitis suppurativa in . At that visit, recurrent uveitis was controlled. Recommendation was to continue methotrexate and tofacitinib combination. Bckgd: hx of recurrent/persistent iritis/intermediate uveitis, and cystoid macular edema who follows closely with Dr Ramirez of ophthalmology. negative/normal LEE, RF, ESR/CRP, HLA-B27, angiotensin converting enzyme, CCP, MPO, quant gold/Hep B/C/HIV. She did have axial pain/stiffness which had some features by history that were inflammatory by nature so xray of SI joints no erosions or ankylosis, +mild sclerosis of bilateral SI joints.She was referred to rheumatology and evaluated on 02/03/22 for an active systemic autoimmune disease as the seasonal driver of her inflammatory eye disease given its persi stence/recurrence despite humira 40mg q7 days, oral prednisone, and recent addition of [id number] weekly which was started on 01/09/22. Tofacitinib started Interval history July 31, [address] Ramirez on June 02, 2024. Impression was of recurrent iritis, inactive; intermediate uveitis, inactive; cystoid macular edema no recurrence. Recommendation was to continue immune modulating medications without change. Health overall pretty good, other than mental health struggles. No eye pain or visual changes. No psoriasis No join pain. She had several hidradenitis sores since last visit, also angular chelitis. Both are improved aftershe visited Dermatology last week. Xeljanz 5 bid, but she had not refilled her dispenser lately, and she was taking only one dose daily. Methotrexate 12.5 mg weekly, no AE Folic 1 mg tab daily. She is following BP at home; last reading was 138/90. Interval history November 09, 2023 Patient last [...] Current Outpatient Medications Medication Sig Dispense Refill folic acid (FOLVITE) 1 MG tablet Take 1 tablet (1 mg) by mouth daily 90 tablet 3 lisdexamfetamine (VYVANSE) 30 MG capsule TAKE 1 CAPSULE (30 MG) BY MOUTH ONCE DAILY. EFFECTIVE DATE:12/28/23 losartan (COZAAR) 25 MG tablet Take 25 mg by mouth methotrexate 2.5 MG tablet Take 5 tablets (12.5 mg) by mouth every 7 days 60 tablet 3 Multiple Vitamins-Minerals (MULTIVITAMIN ADULTS PO) Take by mouth. rosuvastatin (CRESTOR) 10 MG tablet Take 1 tablet by mouth daily at 2 pm Semaglutide, 1 MG/DOSE, (OZEMPIC) 4 MG/3ML pen Inject 1 mg Subcutaneous every 7 days 9 mL 1 tofacitinib (XELJANZ) 5 MG tablet Take 1 tablet (5 mg) by mouth 2 times daily. 60 tablet 1 venlafaxine (EFFEXOR) 75 MG tablet Vitamin D3 (VITAMIN D, CHOLECALCIFEROL,) 25 mcg (1000 units) tablet Take 3 tablets by mouth daily No current facility-administered medications for this visit. Allergies Allergies Allergen Reactions Doxycycline Nausea Hydrocodone Hives and Itching Hydrocodone-Acetaminophen Hives and Itching Lavandula Latifolia Cough and Other (See Comments) Lavender Oil Cough Family History: mother with MS, dx 4 years before she . Started with optic neuritis. 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 Never smoker (father was). Never drug user. Rare ETOH use. with one son. Objective: Physical exam: There were no vitals taken for this visit. Sitting up unassisted NAD Sclera are clear auricular psoriatic plaques have resolved completely. Breathing comfortably on room air. No use of accessory muscles. No cough. No audible wheeze Fluid movement of bilateral shoulders, elbows, wrists, MCPs, PIPs, DIPs. Data: Latest Ref Rng & Units 08/05/2023 2:44 PM 01/14/2024 11:14 AM 05/17/2024 9:59 AM RHEUM RESULTS Albumin (External) 3.3 - 5.0 g/dL 4.6 Albumin 3.5 - 5.2 g/dL 4.2 4.3 ALT 0 - 50 U/L 45 60 AST 0 - 45 U/L 33 Creatinine 0.51 - 0.95 mg/dL 0.80 0.83 Creatinine (External) 0.5 - 1.5 mg/dL 0.9 CRP Inflammation <5.00 mg/L <3.00 <3.00 GFR Estimate >60 mL/min/1.73m2 >90 88 Hematocrit 35.0 - 47.0 % 41.2 43.0 Hemoglobin 11.7 - 15.7 g/dL 14.4 14.8 Hemoglobin (External) 12.0 - 16.0 gm/dL 13.7 Hep B Surface Agn Nonreactive Nonreactive Hepatitis C Antibody Nonreactive Nonreactive WBC 4.0 - 11.0 10e3/uL 5.6 4.7 RBC Count 3.80 - 5.20 10e6/uL 4.51 4.57 RDW 10.0 - 15.0 % 12.1 12.1 MCHC 31.5 - 36.5 g/dL 35.0 34.4 MCV 78 - 100 fL 91 94 Platelet Count 150 - 450 10e3/uL 221 137 Sed Rate 0 - 20 mm/hr 11 This result is from an external source. , , , , , , , , , , , , , , Hepatitis B Core Antibody Total Date Value Ref Range Status 01/14/2024 Nonreactive Nonreactive Final Comment: Nonreactive hepatitis B core antibody test results indicate the absence of exposure to hepatitis B virus and no evidence of recent, past/resolved, or chronic hepatitis B. , Hepatitis B Surface Antigen Date Value Ref Range Status 01/14/2024 Nonreactive Nonreactive Final , , , , , , , , , , , , , , , , , , , , , , , , , , , , , ER ASSISTANT documented in this encounter Nursing Notes * Walter Bravo MA - 08/01/2024 8:00 AM CST Current patient location: [address] [place] [address] Is the patient currently in the state of [place]? YES Visit mode:VIDEO If the visit is dropped, the patient can be reconnected by:VIDEO VISIT: Text to cell phone: Telephone Information: and VIDEO VISIT: Send to e-mail at: [email or web address] Will anyone else be joining the visit? NO (If patient encounters technical issues they should call [phone]) Are changes needed to the allergy or medication list? Medications flagged for removal, please review/remove Patient denies any changes since echeck-in completion and states all information entered during echeck-in remains accurate. Are refills needed on medications prescribed by this physician? Discuss with provider Rooming Documentation: Questionnaire(s) completed Reason for visit: RECHECK Walter Bravo MA VVF ER ASSISTANT ER ASSISTANT documented in this encounter Plan of Treatment Upcoming Encounters Date Type Department Care Team (Late st Contact Info) Description 10/06/2024 10:30 AM BROKER ASSISTANT Office Visit [address] 9[facility] Clin [address] [place] [address] Shaan Ramirez MD [address] [place] [address] [phone] 03/09/2025 2:00 PM CDT Virtual Visit [address] [phone] Adria Cisneros MD [address] [place] [address] [phone] Scheduled Orders Name Type Priority Associated Diagnoses Orde r Schedule CBC with platelets Lab Routine predatory animal exterminator methotrexate user Every 3 Months for 4 Occurrences starting 08/01/2024 until 08/01/2025, 1 completed AST Lab Routine predatory animal exterminator methotrexate user Every 3 Months for 4 Occurrences starting 08/01/2024 until 08/01/2025, 1 completed ALT Lab Routine MCFP methotrexate user Every 3 Months for 4 Occurrences starting 08/01/2024 until 08/01/2025, 1 completed Albumin level Lab Routine MCFP methotrexate user Every 3 Months for 4 Occurrences starting 08/01/2024 until 08/01/2025, 1 completed Creatinine Lab Routine MCFP methotrexate user Every 3 Months for 4 Occurrences starting 08/01/2024 until 08/01/2025, 1 completed Lipid panel reflex to direct LDL Fasting Lab Routine Long-term current use of tofacitinib q 6 mos for 3 Occurrences starting 08/01/2024 until 08/01/2025 documented as of this encounter Results * Creatinine (08/22/2024 10:37 AM BROKER ASSISTANT) Creatinine 0.72 0.51 - 0.95 mg/dL 08/22/2024 9:46 PM BROKER ASSISTANT [facility] GFR Estimate >90 >60 mL/min/1.7 3m2 08/22/2024 9:46 PM BROKER ASSISTANT [facility] Comment:eGFR calculated us2020 CKD-EPI equation. Blood BLOOD SPECIMEN / Unknown Venipuncture / Unknown 08/22/2024 10:37 AM BROKER ASSISTANT 08/22/2024 10:37 AM BROKER ASSISTANT us Adria Cisneros MD LAB - BLOOD ORDERABLES Maisha l Result [facility] [address] [facility], [address] [place] [address] * Albumin level (08/22/2024 10:37 AM BROKER ASSISTANT) Albumin 4.1 3.5 - 5.2 g/dL 08/22/2024 9:46 PM BROKER ASSISTANT [facility] Blood BLOOD SPECIMEN / Unknown Venipuncture / Unknown 08/22/2024 10:37 AM BROKER ASSISTANT 08/22/2024 10:37 AM BROKER ASSISTANT Adria Cisneros MD LAB - BLOOD ORDERABLES Maisha l Result LABORATORY [facility] [address] [facility], [address] * (ABNORMAL) ALT (08/22/2024 10:37 AM BROKER ASSISTANT) ALT 58(H) 0 - 50 U/L 08/22/2024 9:4 6 PM BROKER ASSISTANT [facility] Blood BLOOD SPECIMEN / Unknown Venipuncture / Unknown 08/22/2024 10:37 AM BROKER ASSISTANT 08/22/2024 10:37 AM BROKER ASSISTANT Adria Cisneros MD LAB - BLOOD ORDERABLES Maisha l Result Performing Organization Address City/[facility]/ZIP Co de Phone Number LABORATORY [facility] [address] [facility], [address] * AST (08/22/2024 10:37 AM BROKER ASSISTANT) AST 33 0 - 45 U/L 08/22/2024 9:4 6 PM BROKER ASSISTANT [facility] Blood BLOOD SPECIMEN / Unknown Venipuncture / Unknown 08/22/2024 10:37 AM BROKER ASSISTANT 08/22/2024 10:37 AM BROKER ASSISTANT Adria Cisneros MD LAB - BLOOD ORDERABLES Maisha l Result LABORATORY [facility] [address] [facility], [address] * CBC with platelets (08/22/2024 10:37 AM BROKER ASSISTANT) WBC Count 5.5 4.0 - 11.0 10e3/uL 08/22/2024 10:42 AM BROKER ASSISTANT [facility] RBC Count 4.21 3.80 - 5.20 10e6/uL 08/22/2024 10:42 AM BROKER ASSISTANT [facility] Hemoglobin 13.7 11.7 - 15.7 g/dL 08/22/2024 10:42 AM BROKER ASSISTANT [facility] Hematocrit 40.0 35.0 - 47.0 % 08/22/2024 10:42 AM BROKER ASSISTANT [facility] MCV 95 78 - 100 fL 08/22/2024 10:42 AM BROKER ASSISTANT [facility] MCH 32.5 26.5 - 33.0 pg 08/22/2024 10:42 AM BROKER ASSISTANT [facility] MCHC 34.3 31.5 - 36.5 g/dL 08/22/2024 10:42 AM BROKER ASSISTANT [facility] RDW 12.3 10.0 - 15.0 % 08/22/2024 10:42 AM BROKER ASSISTANT [facility] Platelet Count 268 150 - 450 10e3/uL 08/22/2024 10:42 AM BROKER ASSISTANT [facility] Blood BLOOD SPECIMEN / Unknown Venipuncture / Unknown 08/22/2024 10:37 AM BROKER ASSISTANT 08/22/2024 10:37 AM BROKER ASSISTANT us Adria Cisneros MD LAB - BLOOD ORDERABLES Maisha l Result [facility] [address] [facility] (no room number, 1st floor of clinic) [place] [address], [facility] documented in this encounter Visit Diagnoses Diagnosis MCFP methotrexate user- Primary Encounter for long-term (current) use of other medications Psoriasis Other psoriasis Intermediate uveitis of both eyes Hidradenitis suppurativa Hidradenitis Long-term current use of tofacitinib documented in this encounter Additional Health Concerns Assessment Noted Time PHQ-9 Depression Total Score: 5 08/01/20 24 7:42 AM BROKER ASSISTANT documented as of this encounter Care Teams Salon Shampoo Assistant Relationship Specialty Start Date End Date Luis Ambriz MD [facility] [address] [place] [address] PCP - General Family Medicine 02/16/22 Shaan Ramirez MD [address] [place] [address] Assigned Surgical Provider 12/04/21 Nini Patten MD [address] [place] [address] Endocrinology, Diabetes, and Metabolism 08/29/22 Nini Patten MD [address] [place] [address] Assigned Endocrinology Provider 01/20/23 Margaret Reyes [facility] Pharmacist 08/10/23 Adria Cisneros MD [address] [place] [address] Rheumatology 11/09/23 Adria Cisneros MD [address] [place] [address] Rheumatology 11/09/23 Adria Cisneros MD [address] [place] [address] Assigned Rheumatology Provider 02/26/24 Margaret Reyes [facility] Assigned MTM Pharmacist 06/28/24 Adria Cisneros MD [address] [place] [address] Rheumatology 08/01/24 documented as of this encounter
--- OUTSIDE RECORDS SUMMARY | 2024-09-07 18:29 | XMS_ITS | Encounter Summary ---
Author Organization [place] Address [address] [place] [address] Care Team Providers Care Manager Oracle Database Name Role Phone Zuleyma[facility]ola [facility], [facility] Unavailable [phone] Shaan Ramirez MD Unavailable [phone] Luis Ambriz MD Primary Care Provider [phone] MD Unavailable [phone] Nini Patten MD Unavailable [phone] Nini Patten MD Unavailable [phone] Margaret Reyes [facility] Unavailable Unavailable Adria Cisneros MD Unavailable [phone] Adria Cisneors MD Unavailable [phone] Adria Cisneros MD Unavailable [phone] Margaret Reyes [facility] Unavailable Unavailable Adria Cisneros MD Unavailable [phone] Encounter Details Date Type Department Care Team (Late st Contact Info) Description 01/15/2023 [facility] Endocrinology Clinic [address] [address] Nini Patten MD [address] [place] [address] Social History Tobacco Use Types Packs/Day [...] st Contact Info) Description 10/06/2024 10:30 AM SNOW SHOVELER Office Visit [facility] [place] [phone] [facility] 9th [facility] Clin [address] [place] [address] Shaan Ramirez MD [address] [place] [address] [phone] 03/09/2025 2:00 PM CDT Virtual Visit [facility] [address] [place] [address] Adria Cisneros MD [address] [place] [address] [address] [place], [place] [address] documented as of this encounter Visit Diagnoses Not on filedocumented in this encounter Additional Health Concerns Assessment Noted Time PHQ-9 Depression Total Score: 4 12/25/19 23 2:25 PM CDT documented as of this encounter Care Teams Manager Oracle Database Relationship Specialty Start Date End Date Luis Ambriz MD [facility] [address] [place] [address] PCP - General Family Medicine 02/16/22 Bola Amor, LEAD SUPPLY WORKER, [facility] [address] [facility] [address] [place], [place] 275375 Assigned Behavioral Health Provider 12/04/21 06/27/24 Shaan Ramirez MD [address] [place] [address] [phone] Assigned Surgical Provider 12/04/[address] MD [address] [place] [address] [phone] Assigned Rheumatology Provider 02/25/22 02/25/24 Nini Patten MD [address] [place] [address] 474955 Endocrinology, Diabetes, and Metabolism 08/29/22 Nini Patten MD [address] [place] [address] [phone] Assigned Endocrinology Provider 01/20/23 Margaret Reyes [facility] Pharmacist 08/10/23 Adria Cisneros MD [address] [place] [address] Rheumatology 11/09/23 Adria Cisneros MD [address] [place] [address] Rheumatology 11/09/23 Adria Cisneros MD [address] [place] [address] Assigned Rheumatology Provider 02/26/24 Margaret Reyes [facility] Assigned MTM Pharmacist 06/28/24 Adria Cisneros MD [address] [place] [address] Rheumatology 08/01/24 documented as of this encounter
--- OUTSIDE RECORDS SUMMARY | 2024-09-07 18:29 | XMS_ITS | Encounter Summary ---
Author Organization [place] Address [address] [place] [address] Care Team Providers Care Boiler Control Technician Name Role Phone ZuleymaBola [facility] Unavailable [phone] Shaan Ramirez MD Unavailable [phone] Luis Ambriz MD Primary Care Provider [phone] MD Unavailable [phone] Nini Patten MD Unavailable [phone] Nini Patten MD Unavailable [phone] Margaret Reyes [facility] Unavailable Unavailable Adria Cisneros MD Unavailable [phone] Adria Cisneros MD Unavailable [phone] Adria Cisneros MD Unavailable [phone] Margaret Reyes [facility] Unavailable Unavailable Adria iCsneros MD Unavailable [phone] Encounter Details Date Type Department Care Team (Late st Contact Info) Description 08/05/2023 External Order Results [facility] [address] [place] [address] Outside, Provider Social History Tobacco Use Types [...] st Contact Info) Description 10/06/2024 10:30 AM SUPPORT SERVICES COORDINATOR Office Visit [facility] Eye [facility] [address] [facility] [address] [place] [address] Shaan Ramirez MD [address] [place] [address] 03/09/2025 2:00 PM CDT Virtual Visit [address] [place] [address] Adria Cisneros MD [address] [place] [address] [address] [place], [place] [id number] documented as of this encounter Procedures Procedure Name Priority Date/Time Associated Diagnosis Comments CBC WITH PLATELETS & DIFFERENTIAL Routine 08/05/2023 2:44 PM SUPPORT SERVICES COORDINATOR ERYTHROCYTE SEDIMENTATION RATE AUTO Routine 08/05/2023 2:44 PM SUPPORT SERVICES COORDINATOR CRP INFLAMMATION Routine 08/05/2023 2:44 PM SUPPORT SERVICES COORDINATOR COMPREHENSIVE METABOLIC PANEL Routine 08/05/2023 2:44 PM SUPPORT SERVICES COORDINATOR documented in this encounter Results * (ABNORMAL) Comprehensive metabolic panel (08/05/2023 2:44 PM SUPPORT SERVICES COORDINATOR) Sodium (External) 139 135 - 149 mmol/L [...] BLOOD SPECIMEN / Unknown 08/05/2023 2:44 PM SUPPORT SERVICES COORDINATOR Calli MCKAY PFT - 08/08/2023 10:56 AM SUPPORT SERVICES COORDINATOR Verified by Hilario Stevenson on 08/08/2023. us Provider Outside LAB - BLOOD ORDERABLES Edited R esult - Final WO[facility] PFT NON-INTERFACED (ONBASE SCANS) * (ABNORMAL) CRP inflammation (08/05/2023 2:44 PM SUPPORT SERVICES COORDINATOR) CRP Inflammation (External) <0.5(L) 0.5 - 1.0 mg/dL NON-INTERFACE D (ONBASE SCANS) Blood BLOOD SPECIMEN / Unknown 08/05/2023 2:44 PM SUPPORT SERVICES COORDINATOR Calli MCKAY PFT - 08/08/2023 10:56 AM SUPPORT SERVICES COORDINATOR Verified by Hilario Stevenson on 08/08/2023. Provider Outside LAB - BLOOD ORDERABLES Edited R [facility] WOODY PFT NON-INTERFACED (ONBASE SCANS) * Erythrocyte sedimentation rate auto (08/05/2023 2:44 PM SUPPORT SERVICES COORDINATOR) Pathologist [facility] ESR (External) 7 2 - 20 mm/hr NON-INTERFACED (ONBASE SCANS) Blood BLOOD SPECIMEN / Unknown 08/05/2023 2:44 PM SUPPORT SERVICES COORDINATOR Narrative LYRICE PFT - 08/08/2023 10:56 AM SUPPORT SERVICES COORDINATOR Verified by Hilario Stevenson on 08/08/2023. Provider Outside LAB - BLOOD ORDERABLES Edited R [facility] [email or web address] Performing Organization Address City/[facility] Co de Phone Number [facility] PFT NON-INTERFACED (ONBASE SCANS) * CBC with Platelets & Differential (08/05/2023 2:44 PM SUPPORT SERVICES COORDINATOR) WBC Count (External) 5.07 4.50 - 11.00 [...] BLOOD SPECIMEN / Unknown 08/05/2023 2:44 PM SUPPORT SERVICES COORDINATOR Narrative [facility] [place] - 08/08/2023 10:56 AM SUPPORT SERVICES COORDINATOR Verified by Hilario Stevenson on 08/08/2023. us Provider Outside LAB - BLOOD ORDERABLES Edited R esult - Final WOODY [place] NON-INTERFACED (ONBASE SCANS) documented in this encounter Visit Diagnoses Not on filedocumented in this encounter Additional Health Concerns Assessment Noted Time PHQ-9 Depression Total Score: 4 12/25/19 23 2:25 PM CDT documented as of this encounter Care Teams Boiler Control Technician Relationship Specialty Start Date End Date Luis Ambriz MD [facility] [address] [place] [address] PCP - General Family Medicine 02/16/22 Bola Amor, FIRE INFORMATION OFFICER, LADC [address] [facility] [address] [place] [address] [place] [address] Assigned Behavioral Health Provider 12/04/21 06/27/24 Shaan Ramirez MD [address] [place] [address] Assigned Surgical Provider 12/04/[address] MD [address] [place] [address] Assigned Rheumatology Provider 02/25/22 02/25/24 Nini Patten MD [address] [place] [address] Endocrinology, Diabetes, and Metabolism 08/29/22 Nini Patten MD [address] [place] [address] [phone] Assigned Endocrinology Provider 01/20/23 [facility] 08/10/23 Adria Cisneros MD [address] [place] [address] Rheumatology 11/09/23 Adria Cisneros MD [address] [place] [address]66[address] Rheumatology 11/09/23 Adria Cisneros MD [address] [place] [address] 24584 Assigned Rheumatology Provider 02/26/24 Margaret Reyes, [facility] Assigned MTM Pharmacist 06/28/24 Adria Cisneros MD [address] [place] [address] 099935 Rheumatology 08/01/24 documented as of this encounter
--- OUTSIDE RECORDS SUMMARY | 2024-09-07 18:29 | XMS_ITS | Encounter Summary ---
Author Organization [place] Address [address] [place] [address] Care Team Providers Care Utilities Equipment Repairer Name Role Phone Zuleyma, Christalromancamila Naranjo [facility] Unavailable [phone] Shaan Ramirez MD Unavailable [phone] Luis Ambriz MD Primary Care Provider [phone] MD Unavailable [phone] Nini Patten MD Unavailable [phone] Nini Patten MD Unavailable [phone] Margaret Reyes [facility] Unavailable Unavailable Adria Cisneros MD Unavailable [phone] Adria Cisneros MD Unavailable [phone] Adria Cisneros MD Unavailable [phone] Margaret Reyes [facility] Unavailable Unavailable Ardia Cisneros MD Unavailable [phone] Encounter Details Date Type Department Care Team (Late st Contact Info) Description 11/29/2021 [facility] Eye [place] [id number] [facility] [address] [phone] Shaan Ramirez MD [address] [place] [address] [phone] Social History Tobacco Use Types Packs/Day Years Used Date Smoking Tobacco: Never Smokeless Tobacco: Never PHQ-2 Answer Date Recorded PHQ-2 Total Score (Adult) - Positive if 3 or more points; Administer PHQ-9 if positive 2 11/23/2021 Comments Unknown Sex and Gender Information Value [...] st Contact Info) Description 10/06/2024 10:30 AM LOCK PLATER Office Visit [facility] Eye [address] 9[facility] [address] [place] [address] Shaan Ramirez MD [address] [place] [address] 137815 03/09/2025 2:00 PM CDT Virtual Visit [address] [address] Adria Cisneros MD [address] [place] [address] documented as of this encounter Visit Diagnoses Not on filedocumented in this encounter Additional Health Concerns Assessment Noted Time PHQ-9 Depression Total Score: 6 11/25/19 22 7:04 AM CDT documented as of this encounter Care Teams Utilities Equipment Repairer Relationship Specialty Start Date End Date Luis Ambriz MD [facility] [address] [place] [address] PCP - General Family Medicine 02/16/22 Bola Amor, VECTOR CONTROL SPECIALIST, [facility] [address] [place] [address] Assigned Behavioral Health Provider 12/04/21 06/27/24 Shaan Ramirez MD [address] [place] [address]114 Assigned Surgical Provider 12/04/[address] MD [address] [place] [address] Assigned Rheumatology Provider 02/25/22 02/25/24 Nini Patten MD [address] [place] [address] Endocrinology, Diabetes, and Metabolism 08/29/22 Nini Patten MD [address] [place] [address] Assigned Endocrinology Provider 01/20/23 Margaret Reyes RPH [facility] 08/10/23 Adria Cisneros MD [address] [place] [address] Rheumatology 11/09/23 Adria Cisneros MD [address] [place] [address] Rheumatology 11/09/23 Adria Cisneros MD [address] [place] [address] Assigned Rheumatology Provider 02/26/24 Margaret Reyes RPH Assigned MTM Pharmacist 06/28/24 Adria Cisneros MD [address] [place] [address] Rheumatology 08/01/24 documented as of this encounter
--- OUTSIDE RECORDS SUMMARY | 2024-09-07 18:29 | XMS_ITS | Encounter Summary ---
Author Organization [place] Address [address] [place] [address] Care Team Providers Care Risk Compliance Manager Name Role Phone Shaan Ramirez MD Unavailable [phone] Luis Ambriz MD Primary Care Provider [phone] Nini Patten MD Unavailable [phone] Nini Patten MD Unavailable [phone] Margaret Reyes [facility] Unavailable Unavailable Adria Cisneros MD Unavailable [phone] Adria Cisneros MD Unavailable [phone] Adria Cisneros MD Unavailable [phone] Margaret Reyes [facility] Unavailable Unavailable Adria Cisneros MD Unavailable [phone] Encounter Details Date Type Department Care Team (Latest Contact Info) Description 08/19/2024 Travel Social History Tobacco Use Types Packs/Day [...] st Contact Info) Description 10/06/2024 10:30 AM SPECIAL EDUCATION SUPERINTENDENT Office Visit [facility] Eye Clinic [facility] [address] [facility] 9th Fl Clin [address] [place] [address] Shaan Ramirez MD 6 [place] [address] 03/09/2025 2:00 PM CDT Virtual Visit [facility] [address] [place] [phone] Adria Cisneros MD [address] [address] documented as of this encounter Visit Diagnoses Not on filedocumented in this encounter Additional Health Concerns Assessment Noted Time PHQ-9 Depression Total Score: 5 08/01/20 24 7:42 AM SPECIAL EDUCATION SUPERINTENDENT documented as of this encounter Care Teams Risk Compliance Manager Relationship Specialty Start Date End Date Luis Ambriz MD [facility] [address] [place] [address] PCP - General Family Medicine 02/16/22 Shaan Ramirez MD [address] [place] [address] Assigned Surgical Provider 12/04/21 Nini Patten MD [address] [place] [address] Endocrinology, Diabetes, and Metabolism 08/29/22 Nini Patten MD [address] [place] [address] Assigned Endocrinology Provider 01/20/23 Margaret Reyes [facility] Pharmacist 08/10/23 Adria Cisneros MD [address] [place] [address] Rheumatology 11/09/23 Adria Cisneros MD [address] [place] [address] 084205 Rheumatology 11/09/23 Adria Cisneros MD [address] [place] [address] 537335 Assigned Rheumatology Provider 02/26/24 Margaret Reyes [facility] Assigned MTM Pharmacist 06/28/24 Adria Cisneros MD [address] [place] [address]67 Rheumatology 08/01/24 documented as of this encounter
--- OUTSIDE RECORDS SUMMARY | 2024-09-07 18:29 | XMS_ITS | Encounter Summary ---
Author Organization [place] Address [address] [place] [address] Care Team Providers Care Chemistry Quality Control Analyst Name Role Phone Shaan Ramirez MD Unavailable [phone] Luis Ambriz MD Primary Care Provider [phone] Nini Patten MD Unavailable [phone] Nini Patten MD Unavailable [phone] Margaret Reyes [facility] Unavailable Unavailable Adria Cisneros MD Unavailable [phone] Adria Cisneros MD Unavailable [phone] Adria Cisneros MD Unavailable [phone] Margaret Reyes [facility] Unavailable Unavailable Adria Cisneros MD Unavailable [phone] Encounter Details Date Type Department Care Team (Late st Contact Info) Description 08/19/2024 [facility] Medical Advice [facility] Clinic [address] [address] Adria Cisneros MD [address] [place] [address] Social History Tobacco Use Types Packs/Day [...] st Contact Info) Description 10/06/2024 10:30 AM EMPLOYMENT OFFICER Office Visit [facility] Eye [address] 9[facility] [address] [place] [address] Shaan Ramirez MD [address] [place] [address] 03/09/2025 2:00 PM CDT Virtual Visit [place] [address] [place] [phone] Adria Cisneros MD [address] [place] [address] 623775 documented as of this encounter Visit Diagnoses Not on filedocumented in this encounter Additional Health Concerns Assessment Noted Time PHQ-9 Depression Total Score: 5 08/01/20 24 7:42 AM EMPLOYMENT OFFICER documented as of this encounter Care Teams Chemistry Quality Control Analyst Relationship Specialty Start Date End Date Luis Ambriz MD [facility] [address] [place] [address] PCP - General Family Medicine 02/16/22 Shaan Ramirez MD [address] [place] [address] 121505 Assigned Surgical Provider 12/04/21 Nini Patten MD [address] [place] [address] 222885 Endocrinology, Diabetes, and Metabolism 08/29/22 Nini Patten MD [address] [place] [address] 560455 Assigned Endocrinology Provider 01/20/23 Margaret Reyes [facility] Pharmacist 08/10/23 Adria Cisneros MD [address] [place] [address] Rheumatology 11/09/23 Adria Cisneros MD [address] [place] [address] Rheumatology 11/09/23 Adria Cisneros MD [address] [place] [address] Assigned Rheumatology Provider 02/26/24 Margaret Reyes [facility] Assigned MTM Pharmacist 06/28/24 Adria Cisneros MD [address] [place] [address] Rheumatology 08/01/24 documented as of this encounter
--- OUTSIDE RECORDS SUMMARY | 2024-09-07 18:29 | XMS_ITS | Clinical Summary ---
Author Organization [place] Address [address] [place] [address] Care Team Providers Care Medical Receptionist Medical Assistant Name Role Phone Shaan Ramirez MD Unavailable [phone] Luis Ambriz MD Primary Care Provider [phone] AlaNini somers MD Unavailable [phone] Nini Patten MD Unavailable [phone] EricMargaret comer [facility] Unavailable Unavailable Adria Cisneros MD Unavailable [phone] Adria Cisneros MD Unavailable [phone] Adria Cisneros MD Unavailable [phone] Margaret Reyes [facility] Unavailable Unavailable Adria Cisneros MD Unavailable [phone] Allergies Active Allergy Reactions Criticality Noted Date [...] Type Department Care Team Description 09/03/2024 Refill [facility] [address] [phone] Adria Cisneros MD New Med Request 08/22/2024 10:15 AM HOSPITALIST PROGRAM DIRECTOR Lab [facility] [address] [place] [address] longterm methotrexate user 08/22/2024 Travel 08/21/2024 Telephone [facility] [address] [phone] Adria Cisneros MD Prior Auth - Medication (Xeljanz ) 08/20/2024 10:00 AM HOSPITALIST PROGRAM DIRECTOR Virtual Visit [facility] [address] 3rd [place] [phone] Adria Cisneros MD Tapp, Megan M, [facility] Hidradenitis suppurativa (Primary Dx); Psoriasis; Intermediate uveitis of both eyes; Vaccine counseling 08/19/2024 MyC Medical Advice [facility] [address] [phone] Adria Cisneros MD 08/19/2024 Travel 08/01/2024 8:00 AM HOSPITALIST PROGRAM DIRECTOR Virtual Visit [facility] [address] [phone] Adria Cisneros MD buttermaker methotrexate user (Primary Dx); Psoriasis; Intermediate uveitis of both eyes; Hidradenitis suppurativa; Long-term current use of tofacitinib 06/10/2024 Orders Only [facility] [address] [address] Adria Cisneros MD Psoriasis (Primary Dx) from Last 3 Months Immunizations Name Administration Dates Next Due COVID-19 Monovalent 18+ (Moderna) 07/20/2021 Influenza (IIV3) PF 04/16/2014 Influenza (prior to 2023) 06/16/2015 Influenza Vaccine 18-64 (Flublok) 05/26/2022, Influenza Vaccine >6 months,quad, PF 04/2020,05/16/2018,08/07/2017, 016 TDAP (Adacel,Boostrix) 06/18/2014,01/01/2014 Family History Medical History [...] 106.6 kg (235 lb) 08/01/2024 7:40 AM HOSPITALIST PROGRAM DIRECTOR Height 167.6 cm (5' 6) 08/01/2024 7:40 AM HOSPITALIST PROGRAM DIRECTOR Body Mass Index 37.93 08/01/2024 7:40 AM HOSPITALIST PROGRAM DIRECTOR Plan of Treatment Upcoming Encounters Date Type Department Care Team (Late st Contact Info) Description 10/06/2024 10:30 AM HOSPITALIST PROGRAM DIRECTOR Office Visit [facility] [place] [address] [facility] 9th Fl Clin [address] [place] [address] Shaan Ramirez MD [address] [place] [address] [phone] 03/09/2025 2:00 PM CDT Virtual Visit [facility] [address] [place] [address] Adria Cisneros MD [address] [place] [address] 88 [place], [place] [phone] Health Maintenance Due Date Last Done Comments A1C 1977 ADVANCE CARE PLANNING 1977 ANNUAL REVIEW OF HM ORDERS [address] CT COLONOGRAPHY 1977 DEPRESSION ACTION PLAN 1977 DIABETIC FOOT EXAM 1977 FIT 1977 FLEX SIG 1977 MAMMO SCREENING 1977 MENTAL HEALTH TX PLAN 1977 sDNA (Cologuard) 1977 YEARLY PREVENTIVE VISIT 1980 COLONOSCOPY 1987 COLORECTAL CANCER SCREENING 1987 HEPATITIS B IMMUNIZATION (1 of 3 - 19+ 3-dose series) 1996 PAP 07/21/2022 07/21/2019 MICROALBUMIN 02/03/2024 02/02/2023 DTAP/TDAP/TD IMMUNIZATION (3 - Td or Tdap) 06/18/2024 06/18/2014, 01/01/2014 COVID-19 Vaccine ( season) 2024 07/21/2024, 10/19/2022, 07/20/2021, Additional history exists ZOSTER IMMUNIZATION (2 of 2) 09/15/2024 07/21/2024 BMP 01/13/2025 01/14/2024, 07/08, 02/02/2023, Additional history exists PHQ-9 01/30/2025 08/01/2024, 12/05, 10/30/2022, Additional history exists LIPID 05/17/2025 05/17/2024, 01/14/2024 EYE EXAM 06/02/2025 06/02/2024, 01/04, 09/24/2023, Additional history exists RSV VACCINE (1 - 1-dose 75+ series) 2052 HIV SCREENING Completed 12/30/2021 HEPATITIS C SCREENING Completed 01/14/2024, 022 Pneumococcal Vaccine: Pediatrics (0 to 5 Years) and At-Risk Patients (6 to 49 Years) Completed 04/24/2024 INFLUENZA VACCINE Completed 07/21/2024, , 04/14/2020, Additional history exists HPV IMMUNIZATION Aged Out No longer e ligible based on patient's age to complete this topic MENINGITIS IMMUNIZATION Aged Out No l onger eligible based on patient's age to complete this topic RSV MONOCLONAL ANTIBODY Aged Out No l onger eligible based on patient's age to complete this topic Procedures Procedure Name Priority Date/Time Associated Diagnosis Comments CREATININE Routine 08/22/2024 10:37 AM HOSPITALIST PROGRAM DIRECTOR longterm methotrexate user ALBUMIN LEVEL Routine 08/22/2024 10:37 AM HOSPITALIST PROGRAM DIRECTOR buttermaker methotrexate user ALT Routine 08/22/2024 10:37 AM HOSPITALIST PROGRAM DIRECTOR buttermaker methotrexate user AST Routine 08/22/2024 10:37 AM HOSPITALIST PROGRAM DIRECTOR longterm methotrexate user CBC WITH PLATELETS Routine 08/22/2024 10 :37 AM HOSPITALIST PROGRAM DIRECTOR longterm methotrexate user LIPID REFLEX TO DIRECT LDL [...] Maintenance Results * Creatinine (08/22/2024 10:37 AM HOSPITALIST PROGRAM DIRECTOR) Creatinine 0.72 0.51 - 0.95 mg/dL 08/22/2024 9:46 PM HOSPITALIST PROGRAM DIRECTOR [facility] GFR Estimate >90 >60 mL/min/1.7 3m2 08/22/2024 9:46 PM HOSPITALIST PROGRAM DIRECTOR [facility] Comment:eGFR calculated usin 2020 CKD-EPI equation. Blood BLOOD SPECIMEN / Unknown Venipuncture / Unknown 08/22/2024 10:37 AM HOSPITALIST PROGRAM DIRECTOR 08/22/2024 10:37 AM HOSPITALIST PROGRAM DIRECTOR Adria Cisneros MD LAB - BLOOD ORDERABLES Maisha l Result [facility] Lab [address] [facility], Room [address] [phone] * AST (08/22/2024 10:37 AM HOSPITALIST PROGRAM DIRECTOR) AST 33 0 - 45 U/L 08/22/2024 9:4 6 PM HOSPITALIST PROGRAM DIRECTOR [facility] Blood BLOOD SPECIMEN / Unknown Venipuncture / Unknown 08/22/2024 10:37 AM HOSPITALIST PROGRAM DIRECTOR 08/22/2024 10:37 AM HOSPITALIST PROGRAM DIRECTOR Adria Cisneros MD LAB - BLOOD ORDERABLES Maisha l Result [facility] Lab [address] [facility], Room [address] * (ABNORMAL) ALT (08/22/2024 10:37 AM HOSPITALIST PROGRAM DIRECTOR) ALT 58(H) 0 - 50 U/L 08/22/2024 9:4 6 PM HOSPITALIST PROGRAM DIRECTOR [facility] Blood BLOOD SPECIMEN / Unknown Venipuncture / Unknown 08/22/2024 10:37 AM HOSPITALIST PROGRAM DIRECTOR 08/22/2024 10:37 AM HOSPITALIST PROGRAM DIRECTOR Adria Cisneros MD LAB - BLOOD ORDERABLES Maisha l Result [facility] Lab [address] [facility], Room [address] * Albumin level (08/22/2024 10:37 AM HOSPITALIST PROGRAM DIRECTOR) Pathologist [facility] Albumin 4.1 3.5 - 5.2 g/dL 08/22/2024 9:46 PM HOSPITALIST PROGRAM DIRECTOR [facility] Blood BLOOD SPECIMEN / Unknown Venipuncture / Unknown 08/22/2024 10:37 AM HOSPITALIST PROGRAM DIRECTOR 08/22/2024 10:37 AM HOSPITALIST PROGRAM DIRECTOR Adria Cisneros MD LAB - BLOOD ORDERABLES Maisha l Result LABORATORY [facility] Lab [address] [facility], Room [address] * CBC with platelets (08/22/2024 10:37 AM HOSPITALIST PROGRAM DIRECTOR) WBC Count 5.5 4.0 - 11.0 10e3/uL 08/22/2024 10:42 AM HOSPITALIST PROGRAM DIRECTOR [facility] RBC Count 4.21 3.80 - 5.20 10e6/uL 08/22/2024 10:42 AM HOSPITALIST PROGRAM DIRECTOR [facility] Hemoglobin 13.7 11.7 - 15.7 g/dL 08/22/2024 10:42 AM HOSPITALIST PROGRAM DIRECTOR [facility] Hematocrit 40.0 35.0 - 47.0 % 08/22/2024 10:42 AM HOSPITALIST PROGRAM DIRECTOR [facility] MCV 95 78 - 100 fL 08/22/2024 10:42 AM HOSPITALIST PROGRAM DIRECTOR [facility] MCH 32.5 26.5 - 33.0 pg 08/22/2024 10:42 AM HOSPITALIST PROGRAM DIRECTOR [facility] MCHC 34.3 31.5 - 36.5 g/dL 08/22/2024 10:42 AM HOSPITALIST PROGRAM DIRECTOR [facility] RDW 12.3 10.0 - 15.0 % 08/22/2024 10:42 AM HOSPITALIST PROGRAM DIRECTOR [facility] Platelet Count 268 150 - 450 10e3/uL 08/22/2024 10:42 AM HOSPITALIST PROGRAM DIRECTOR [facility] Blood BLOOD SPECIMEN / Unknown Venipuncture / Unknown 08/22/2024 10:37 AM HOSPITALIST PROGRAM DIRECTOR 08/22/2024 10:37 AM HOSPITALIST PROGRAM DIRECTOR Adria Cisneros MD LAB - BLOOD ORDERABLES Maisha ibarra Result LABORATORY [facility] [address] [facility] (no room number, 1st floor of clinic) [place] [address] * Lipid panel reflex to direct LDL Fasting (05/17/2024 9:59 AM CDT) [facility] Cholesterol 135 <200 mg/dL 05/17/2024 1:05 PM [...] ORDERABLES Maisha l Result Performing Organization Address [facility] de Phone Number LABORATORY [facility] Core Lab [address] [place] [address], [facility] [address] * Hepatitis C antibody (01/14/2024 11:14 AM CDT) [facility] Hepatitis C Antibody Nonreactive Nonreactive 01/15/2024 9:38 [...] ORDERABLES Maisha l Result Performing Organization Address [facility] Co de Phone Number LABORATORY [facility] Wh[facility] Core Lab [address] [facility], Room [address] * (ABNORMAL) Comprehensive metabolic panel (01/14/2024 11:14 AM CDT) [facility] Sodium 137 135 - 145 mmol/L 01/14/2024 11:39 AM CDT [facility] - CORE LAB Comment:Reference intervals for this test were updated on 05/01/2023 to more accurately reflect our healthy population. There may be differences in the flagging of prior results with similar values performed with this method. Interpretation of those prior results can be made in the context of the updated reference intervals. Potassium 4.3 3.4 - 5.3 mmol/L 01/14/2024 11:39 AM CDT [facility] - [facility]ORE [facility] Carbon Dioxide (CO2) 22 22 - 29 mmol/L 01/14/2024 11:39 AM CDT [facility] - [facility] Anion Gap 11 7 - 15 mmol/L 01/14/2024 11:39 AM CDT [facility] Urea Nitrogen 10.4 6.0 - 20.0 mg/dL 01/14/2024 11:39 AM CDT [facility] - [facility] Creatinine 0.80 0.51 - 0.95 mg/dL 01/14/2024 11:39 AM CDT [facility] GFR Estimate >90 >60 mL/min/1. 73m2 01/14/2024 11:39 AM CDT [facility] Calcium 9.6 8.6 - 10.0 mg/dL 01/14/2024 11:39 AM CDT [facility] Chloride 104 98 - 107 mmol/L 01/14/2024 11:39 AM CDT [facility] Glucose 99 70 - 99 mg/dL 01/14/2024 11:39 AM CDT [facility] - [facility] Alkaline Phosphatase 66 40 - 150 U/L 01/14/2024 11:39 AM CDT [facility] AST 33 0 - 45 U/L 01/14/2024 11:39 AM CDT [facility] - [facility] Comment:Reference intervals for this test were updated on 01/15/2023 to more accurately reflect our healthy population. There may be differences in the flagging of prior results with similar values performed with this method. Interpretation of those prior results can be made in the context of the updated reference intervals. ALT 45 0 - 50 U/L 01/14/2024 11:39 AM CDT [facility] - [facility] Comment:Reference intervals for [...] - 8.3 g/dL 01/14/2024 11:39 AM CDT [facility] - [facility] Albumin 4.2 3.5 - 5.2 g/dL 01/14/2024 11:39 AM CDT [facility] - [facility] Bilirubin Total 1.3(H) <=1.2 mg/dL 01/14/2024 11:39 AM CDT [facility] - [facility] Patient Fasting > 8hrs? No 01/14/2024 11:39 AM CDT [facility] Blood STRUCTURE OF LEFT HAND / Unknown Venipuncture / Unknown 01/14/2024 11:14 AM CDT 01/14/2024 11:14 AM CDT Shaan Ramirez MD LAB - BLOOD ORDERABLES Final Result [facility] - CORE LAB [facility] - [address] 1st [place] [address] * Albumin Random Urine Quantitative with Creat [...] control, and institution of therapy with an pmhryujllda-pzwsrmtysw-lsjzcq (ROBERTO) inhibitor (if the patient can tolerate it). Urine MID-STREAM URINE SPECIMEN / Unknown Non-blood Collection / Unknown 02/02/2023 11:59 AM CDT 02/02/2023 11:59 AM CDT [facility] [place] LAB - URINE ORDERABLES Final Result U LABORATORY [facility] Wh[facility] Core Lab [address] [facility], Room [address] [address], [facility] [phone] * HIV Antigen Antibody Combo (12/30/2021 9:15 AM CDT) HIV 1&2 Antibody (External) NEGATIVE NEGATIVE NON-INTERFACE D (ONBASE SCANS) Blood 12/30/2021 9:15 AM CDT Narrative WOODY PFT - 01/06/2022 1:23 PM CDT Verified by Chetan Puga on 01/06/2022. us Provider Outside LAB - BLOOD ORDERABLES Edited R esult - Final LYRICE PFT NON-INTERFACED (ONBASE SCANS) * EYE EXAM - HIM SCAN (11/28/2021 12:00 AM CDT) 11/28/2021 us Provider Outside OTHER Final Result from Last 3 Months or Most Recently Relevant to Health Maintenance Insurance [facility] * Guarantor: Amelia Sr Account Type Relation to Patient Date of Phone Billing Address Medication Therapy Self 1975 [address] [place] [address] [facility] Care Teams Medical Receptionist Medical Assistant Relationship Specialty Start Date End Date Luis Ambriz MD [facility] 2[facility] [address], [place] [id number] PCP - General Family Medicine 02/16/22 Shaan Ramirez MD [address] [place] [address] [phone] Assigned Surgical Provider 12/04/21 Nini Patten MD [address] [place] [address] Endocrinology, Diabetes, and Metabolism 08/29/22 Nini Patten MD [address] [place] [address] [phone] Assigned Endocrinology Provider 01/20/23 Margaret Reyes [facility] Pharmacist 08/10/23 Adria Cisneros MD [address] [place] [address] Rheumatology 11/09/23 Adria Cisneros MD [address] [place] [address] [phone] Rheumatology 11/09/23 Adria Cisneros MD [address] [place] [address] 313605 Assigned Rheumatology Provider 02/26/24 Margaret Reyes Yamil Assigned MTM Pharmacist 06/28/24 Adria Cisneros MD [address] [place] [address] [phone] Rheumatology 08/01/24
--- OUTSIDE RECORDS SUMMARY | 2024-09-07 18:29 | XMS_ITS | Encounter Summary ---
Author Organization [place] Address [address] [place] [address] Care Team Providers Care Financial Engineer Name Role Phone ZuleymaBola [facility] Unavailable [phone] Shaan Ramirez MD Unavailable [phone] Luis Ambriz MD Primary Care Provider [phone] MD Unavailable [phone] Nini Patten MD Unavailable [phone] Nini Patten MD Unavailable [phone] Margaret Reyes [facility] Unavailable Unavailable Adria Cisneros MD Unavailable [phone] Adria Cisneros MD Unavailable [phone] Adria Cisneros MD Unavailable [phone] Margaret Reyes [facility] Unavailable Unavailable Adria Cisneros MD Unavailable [phone] Encounter Details Date Type Department Care Team (Late st Contact Info) Description 12/30/2021 External Order Results [facility] [address] [place] [address] Outside, Provider High risk medication use Social History Tobacco Use Types Packs/Day Years Used Date Smoking Tobacco: Never Smokeless Tobacco: Never PHQ-2 Answer Date Recorded PHQ-2 Score 2 12/27/2021 Comments Unknown Sex and Gender Information Value [...] st Contact Info) Description 10/06/2024 10:30 AM COMPOSITE LAMINATOR Office Visit [facility] [place] [phone] [facility] 9th Az Clin [address] [place] [address] Shaan Ramirez MD [address] [place] [address] [phone] 03/09/2025 2:00 PM CDT Virtual Visit [address] [place] [address] Adria Cisneros MD [address] [place] [address] [phone] documented as of this encounter Procedures Procedure [...] Chetan Puga on 01/06/2022. us Provider Outside LABORATORY Edited Result - Final BREEZE PFT NON-INTERFACED (ONBASE SCANS) * HIV Antigen Antibody Combo (12/30/2021 9:15 AM CDT) HIV 1&2 Antibody (External) NEGATIVE NEGATIVE NON-INTERFACE D (ONBASE SCANS) Blood 12/30/2021 9:15 AM CDT Narrative BREEZE PFT - 01/06/2022 1:23 PM CDT Verified by Chetan Puga on 01/06/2022. us Provider Outside LAB - BLOOD ORDERABLES Edited R esult - Final BREEZE PFT NON-INTERFACED (ONBASE SCANS) * Hepatitis B surface antigen (12/30/2021 9:15 AM CDT) Hep B Surface Agn (External) NEGATIVE NEGATIVE NON-INTERFACE D (ONBASE SCANS) Blood 12/30/2021 9:15 AM CDT Narrative BREEZE PFT - 12/30/2021 3:39 PM CDT Verified by Deangelo Carlson on 12/30/2021. us Provider Outside LAB - BLOOD ORDERABLES Edited R esult - Final BREEZE PFT NON-INTERFACED (ONBASE SCANS) * Hepatitis C antibody (12/30/2021 9:15 AM CDT) Pathologist [facility] Hepatitis C Antibody (External) NEGATIVE NEGATIVE NON-INTERFACE D (ONBASE SCANS) Blood 12/30/2021 9:15 AM CDT Narrative WOODY PFT - 12/30/2021 3:39 PM CDT Verified by Deangelo Carlson on 12/30/2021. us Provider Outside LAB - BLOOD ORDERABLES Edited R esult - Final WOODY [place] NON-INTERFACED (ONBASE SCANS) * (ABNORMAL) Comprehensive metabolic panel (12/30/2021 9:15 AM CDT) [facility] ALT (External) 35 4 - 35 U/L [...] CDT Verified by Deangelo Carlson on 12/30/2021. us Shaan Ramirez MD LAB - BLOOD ORDERABLES Edited Result - Final WOODY PFLauro NON-INTERFACED (ONBASE SCANS) * (ABNORMAL) CBC with [...] Shaan Ramirez MD LAB - BLOOD ORDERABLES Edited Result - Final WOODY PFT NON-INTERFACED (ONBASE SCANS) documented in this encounter Visit Diagnoses Diagnosis High risk medication use Encounter for long-term (current) use of other medications documented in this encounter Additional Health Concerns Assessment Noted Time PHQ-9 Depression Total Score: 10 022 12:04 PM CDT documented as of this encounter Care Teams Financial Engineer Relationship Specialty Start Date End Date Luis Ambriz MD [facility] [address] [place] [address] PCP - General Family Medicine 02/16/22 Bola Amor, POWER TRANSFORMER REPAIR SUPERVISOR, [facility] [address] [facility] [address] [place], [place] [phone] Assigned Behavioral Health Provider 12/04/21 06/27/24 Shaan Ramirez MD [address] [place] [address] [phone] Assigned Surgical Provider 12/04/[address] MD [address] [place] [address] [phone] Assigned Rheumatology Provider 02/25/22 02/25/24 Nini Patten MD [address] [place] [address] 515405 Endocrinology, Diabetes, and Metabolism 08/29/22 Nini Patten MD [address] [place] [address] [phone] Assigned Endocrinology Provider 01/20/23 Margaret Reyes [facility] Pharmacist 08/10/23 Adria Cisneros MD [address] [place] [address] Rheumatology 11/09/23 Adria Cisneros MD [address] [place] [address] Rheumatology 11/09/23 Adria Cisneros MD [address] [place] [address] Assigned Rheumatology Provider 02/26/24 Margaret Reyes [facility] Assigned MTM Pharmacist 06/28/24 Adria Cisneros MD [address] [place] [address] Rheumatology 08/01/24 documented as of this encounter
--- OUTSIDE RECORDS SUMMARY | 2024-09-07 18:29 | XMS_ITS | Encounter Summary ---
Author Organization [place] Address [address] [place] [address] Care Team Providers Care Fiberglass Roving Winder Name Role Phone ZuleymaBola [facility] Unavailable [phone] Shaan Ramirez MD Unavailable [phone] Luis Ambriz MD Primary Care Provider [phone] MD Unavailable [phone] Nini Patten MD Unavailable [phone] Nini Patten MD Unavailable [phone] Margaret Reyes [facility] Unavailable Unavailable Adria Cisneros MD Unavailable [phone] Adria Cisneros MD Unavailable [phone] Adria Cisneros MD Unavailable [phone] Margaret Reyes [facility] Unavailable Unavailable Adria Cisneros MD Unavailable [phone] Encounter Details Date Type Department Care Team (Late st Contact Info) Description 04/10/2023 [facility] Endocrinology Clinic [address] [address] Nini Patten MD [address] [place] [address] Social History Tobacco Use Types Packs/Day Years Used Date Smoking Tobacco: Never Smokeless Tobacco: Never PHQ-2 Answer Date Recorded PHQ-2 Score 1 01/26/2023 Comments Unknown Sex and Gender Information Value [...] st Contact Info) Description 10/06/2024 10:30 AM FAMILY PARTNER Office Visit [facility] [place] [phone] [facility] 9th Oh Clin [address] [place] [address] Shaan Ramirez MD [address] [place] [address] [phone] 03/09/2025 2:00 PM CDT Virtual Visit [facility] [phone] [place] [address] [place] [address] Adria Cisneros MD [address] [facility] [address] [place], [place] 146475 documented as of this encounter Visit Diagnoses Not on filedocumented in this encounter Additional Health Concerns Assessment Noted Time PHQ-9 Depression Total Score: 4 12/25/19 23 2:25 PM CDT documented as of this encounter Care Teams Fiberglass Roving Winder Relationship Specialty Start Date End Date Luis Ambriz MD [facility] [address] [place] [address] PCP - General Family Medicine 02/16/22 Bola Amor, ENGAGEMENT SPECIALIST, [facility] [address] [place] [address] [place], [place] [phone] Assigned Behavioral Health Provider 12/04/21 06/27/24 Shaan Ramirez MD [address] [place] [address] [phone] Assigned Surgical Provider 12/04/[address] MD [address] [place] [address] [phone] Assigned Rheumatology Provider 02/25/22 02/25/24 Nini Patten MD [address] [place] [address] [phone] Endocrinology, Diabetes, and Metabolism 08/29/22 Nini Patten MD [address] [place] [address] [phone] Assigned Endocrinology Provider 01/20/23 Margaret Reyes [facility] Pharmacist 08/10/23 Adria Cisneros MD [address] [place] [address] Rheumatology 11/09/23 Adria Cisneros MD [address] [place] [address] Rheumatology 11/09/23 Adria Cisneros MD [address] [place] [address] Assigned Rheumatology Provider 02/26/24 Margaret Reyes [facility] Assigned MTM Pharmacist 06/28/24 Adria Cisneros MD [address] [place] [address] Rheumatology 08/01/24 documented as of this encounter
--- OUTSIDE RECORDS SUMMARY | 2024-09-07 18:29 | XMS_ITS | Encounter Summary ---
Author Organization [place] Address [address] [place] [address] Care Team Providers Care Site Director Name Role Phone ZuleymaBola [facility], [facility] Unavailable [phone] Shaan Ramirez MD Unavailable [phone] Luis Ambriz MD Primary Care Provider [phone] MD Unavailable [phone] Nini Patten MD Unavailable [phone] Nini Patten MD Unavailable [phone] Margaret Reyes [facility] Unavailable Unavailable Adria Cisneros MD Unavailable [phone] Adria Cisneros MD Unavailable [phone] Adria Cisneros MD Unavailable [phone] Margaret Reyes [facility] Unavailable Unavailable Adria Cisneros MD Unavailable [phone] Encounter Details Date Type Department Care Team (Late st Contact Info) Description 05/02/2023 [facility] Clinic [address] [place] [address] Vinh [place] Social History Tobacco Use [...] st Contact Info) Description 10/06/2024 10:30 AM FORMING PROCESS WORKER Office [facility] 9th Fl Clin 9A [place] [address] Shaan Ramirez MD 6 [place], [place] [address]255 03/09/2025 2:00 PM CDT Virtual Visit [address] [place] [address] Adria Cisneros MD [address] [place] [address] 88 [place], [place] 769395 documented as of this encounter Visit Diagnoses Not on filedocumented in this encounter Additional Health Concerns Assessment Noted Time PHQ-9 Depression Total Score: 4 12/25/19 23 2:25 PM CDT documented as of this encounter Care Teams Site Director Relationship Specialty Start Date End Date Luis Ambriz MD [facility] [address] [place] [address] PCP - General Family Medicine 02/16/22 Bola Amor, FIRE PREVENTION FORESTER, [facility] [address] [place] [address] [place] [address] Assigned Behavioral Health Provider 12/04/21 06/27/24 Shaan Ramirez MD [address] [place] [address] 055545 Assigned Surgical Provider 12/04/[address] MD [address] [place] [address] Assigned Rheumatology Provider 02/25/22 02/25/24 Nini Patten MD [address] [place] [address] Endocrinology, Diabetes, and Metabolism 08/29/22 Nini Patten MD [address] [place] [address] 35705 Assigned Endocrinology Provider 01/20/23 Margaret Reyes [facility] Pharmacist 08/10/23 Adria Cisneros MD [address] [place] [address] Rheumatology 11/09/23 Adria Cisneros MD [address] [place] [address] Rheumatology 11/09/23 Adria Cisneros MD [address] [place] [address] 33124 Assigned Rheumatology Provider 02/26/24 Margaret Reyes [facility] Assigned MTM Pharmacist 06/28/24 Adria Cisneros MD [address] [place] [address] Rheumatology 08/01/24 documented as of this encounter
--- OUTSIDE RECORDS SUMMARY | 2024-09-07 18:29 | XMS_ITS | Encounter Summary ---
Author Organization [place] Address [address] [place] [address] Care Team Providers Care Table Cut Off Saw Operator Name Role Phone ZuleymaChristalromancamila Naranjo [facility], [facility] Unavailable [phone] Shaan Ramirez MD Unavailable [phone] Luis Ambriz MD Primary Care Provider [phone] MD Unavailable [phone] Nini Patten MD Unavailable [phone] Nini Patten MD Unavailable [phone] Margaret Reyes [facility] Unavailable Unavailable Adria Cisneros MD Unavailable [phone] Adria Cisneros MD Unavailable [phone] Adria Cisneros MD Unavailable [phone] Margaret Reyes [facility] Unavailable Unavailable Adria Cisneros MD Unavailable [phone] Reason for Visit * Reason Onset Date Comments Vision Changes Ou 12/21/2021 Encounter Details Date Type Department Care Team (Late st Contact Info) Description 12/21/2021 [facility] Eye [address] Clin [address] [place] [phone] Shaan Ramirez MD [address] [place] [address] Vision Changes Ou Social History Tobacco Use Types Packs/Day Years Used Date Smoking Tobacco: Never Smokeless Tobacco: Never PHQ-2 Answer Date Recorded PHQ-2 Score 4 12/07/2021 Comments Unknown Sex and Gender Information Value [...] Contact Info) Description 10/06/2024 10:30 AM DIRECTOR UNDERWRITER SALES Office [facility] [address] [facility] [address] [place] [address] Shaan Ramirez MD [address] [place] [address] 03/09/2025 2:00 PM CDT Virtual Visit [address] [place] [address] Adria Cisneros MD [address] [place] [address] documented as of this encounter Visit Diagnoses Diagnosis Intermediate uveitis of both eyes documented in this encounter Additional Health Concerns Assessment Noted Time PHQ-9 Depression Total Score: 10 022 12:04 PM CDT documented as of this encounter Care Teams Table Cut Off Saw Operator Relationship Specialty Start Date End Date Luis Ambriz MD [facility] [address] [place] [address] PCP - General Family Medicine 02/16/22 Bola Amor, [facility], [facility] [address] [facility] [address] [address] Assigned Behavioral Health Provider 12/04/21 06/27/24 Shaan Ramirez MD [address] [place] [address] Assigned Surgical Provider 12/04/[address] MD [address] [place] [address] 542255 Assigned Rheumatology Provider 02/25/22 02/25/24 Nini Patten MD [address] [place] [address] Endocrinology, Diabetes, and Metabolism 08/29/22 Nini Patten MD [address] [place] [address] 227[address] Assigned Endocrinology Provider 01/20/23 Margaret Reyes, [facility] Pharmacist 08/10/23 Adria Cisneros MD [address] [place] [address] Rheumatology 11/09/23 Adria Cisneros MD [address] [place] [address] Rheumatology 11/09/23 Adria Cisneros MD [address] [address] Assigned Rheumatology Provider 02/26/24 [facility] Assigned MTM Pharmacist 06/28/24 Adria Cisneros MD [address] [place] [address] Rheumatology 08/01/24 documented as of this encounter
--- OUTSIDE RECORDS SUMMARY | 2024-09-07 18:29 | XMS_ITS | Encounter Summary ---
Author Organization [place] Address [address] [place] [address] Care Team Providers Care Canoe Builder Name Role Phone Shaan Ramirez MD Unavailable [phone] Luis Ambriz MD Primary Care Provider [phone] Nini Patten MD Unavailable [phone] Nini Patten MD Unavailable [phone] Margaret Reyes [facility] Unavailable Unavailable Adria Cisneros MD Unavailable [phone] Adria Cisneros MD Unavailable [phone] Adria Cisneros MD Unavailable [phone] Margaret Reyes [facility] Unavailable Unavailable Adria Cisneros MD Unavailable [phone] Encounter Details Date Type Department Care Team (Late st Contact Info) Description 08/22/2024 10:15 AM [facility] [address] [place] [address] group home methotrexate user Social History Tobacco Use Types Packs/Day Years [...] st Contact Info) Description 10/06/2024 10:30 AM ADULT LITERACY TEACHER Office Visit [facility] Eye [facility] [address] [facility] 9[address] Clin [address] [place] [address] Shaan Ramirez MD [address] [place] [address] 03/09/2025 2:00 PM CDT Virtual Visit [address] [place] [address] Adria Cisneros MD [address] [place] [address] 282175 documented as of this encounter Procedures Procedure Name Priority Date/Time Associated Diagnosis Comments CREATININE Routine 08/22/2024 10:37 AM ADULT LITERACY TEACHER dedicated intermodal truck driver methotrexate user AST Routine 08/22/2024 10:37 AM ADULT LITERACY TEACHER dedicated intermodal truck driver methotrexate user ALT Routine 08/22/2024 10:37 AM ADULT LITERACY TEACHER dedicated intermodal truck driver methotrexate user ALBUMIN LEVEL Routine 08/22/2024 10:37 AM ADULT LITERACY TEACHER dedicated intermodal truck driver methotrexate user CBC WITH PLATELETS Routine 08/22/2024 10 :37 AM ADULT LITERACY TEACHER dedicated intermodal truck driver methotrexate user documented in this encounter Results * Creatinine (08/22/2024 10:37 AM ADULT LITERACY TEACHER) Creatinine 0.72 0.51 - 0.95 mg/dL 08/22/2024 9:46 PM ADULT LITERACY TEACHER [facility] GFR Estimate >90 >60 mL/min/1.7 3m2 08/22/2024 9:46 PM ADULT LITERACY TEACHER [facility] Comment:eGFR calculated usin 2020 CKD-EPI equation. Blood BLOOD SPECIMEN / Unknown Venipuncture / Unknown 08/22/2024 10:37 AM ADULT LITERACY TEACHER 08/22/2024 10:37 AM ADULT LITERACY TEACHER Adria Cisneros MD LAB - BLOOD ORDERABLES Maisha l Result LABORATORY [facility] [place] [facility] [address] [facility], [address] * Albumin level (08/22/2024 10:37 AM ADULT LITERACY TEACHER) Albumin 4.1 3.5 - 5.2 g/dL 08/22/2024 9:46 PM ADULT LITERACY TEACHER LABORATORY Blood BLOOD SPECIMEN / Unknown Venipuncture / Unknown 08/22/2024 10:37 AM ADULT LITERACY TEACHER 08/22/2024 10:37 AM ADULT LITERACY TEACHER Adria Cisneros MD LAB - BLOOD ORDERABLES Maisha l Result LABORATORY [facility] [address] [facility], [address] * (ABNORMAL) ALT (08/22/2024 10:37 AM ADULT LITERACY TEACHER) ALT 58(H) 0 - 50 U/L 08/22/2024 9:4 6 PM ADULT LITERACY TEACHER LABORATORY Blood BLOOD SPECIMEN / Unknown Venipuncture / Unknown 08/22/2024 10:37 AM ADULT LITERACY TEACHER 08/22/2024 10:37 AM ADULT LITERACY TEACHER Adria Cisneros MD LAB - BLOOD ORDERABLES Maisha l Result LABORATORY [facility] [place] [facility] [address] [facility], [address] * AST (08/22/2024 10:37 AM ADULT LITERACY TEACHER) AST 33 0 - 45 U/L 08/22/2024 9:4 6 PM ADULT LITERACY TEACHER [facility] Blood BLOOD SPECIMEN / Unknown Venipuncture / Unknown 08/22/2024 10:37 AM ADULT LITERACY TEACHER 08/22/2024 10:37 AM ADULT LITERACY TEACHER Adria Cisneros MD LAB - BLOOD ORDERABLES Maisha l Result [facility] [place] [facility] [address] [facility], [address] [place] [address] * CBC with platelets (08/22/2024 10:37 AM ADULT LITERACY TEACHER) WBC Count 5.5 4.0 - 11.0 10e3/uL 08/22/2024 10:42 AM ADULT LITERACY TEACHER [facility] RBC Count 4.21 3.80 - 5.20 10e6/uL 08/22/2024 10:42 AM ADULT LITERACY TEACHER [facility] Hemoglobin 13.7 11.7 - 15.7 g/dL 08/22/2024 10:42 AM ADULT LITERACY TEACHER [facility] Hematocrit 40.0 35.0 - 47.0 % 08/22/2024 10:42 AM ADULT LITERACY TEACHER [facility] MCV 95 78 - 100 fL 08/22/2024 10:42 AM ADULT LITERACY TEACHER [facility] MCH 32.5 26.5 - 33.0 pg 08/22/2024 10:42 AM ADULT LITERACY TEACHER [facility] MCHC 34.3 31.5 - 36.5 g/dL 08/22/2024 10:42 AM ADULT LITERACY TEACHER [facility] RDW 12.3 10.0 - 15.0 % 08/22/2024 10:42 AM ADULT LITERACY TEACHER [facility] Platelet Count 268 150 - 450 10e3/uL 08/22/2024 10:42 AM ADULT LITERACY TEACHER [facility] Blood BLOOD SPECIMEN / Unknown Venipuncture / Unknown 08/22/2024 10:37 AM ADULT LITERACY TEACHER 08/22/2024 10:37 AM ADULT LITERACY TEACHER Adria Cisneros MD LAB - BLOOD ORDERABLES Maisha l Result [facility] [address] [facility] Lab (no room number, 1st floor of clinic) [place] [address], [facility] documented in this encounter Visit Diagnoses Diagnosis group home methotrexate user Encounter for long-term (current) use of other medications documented in this encounter Additional Health Concerns Assessment Noted Time PHQ-9 Depression Total Score: 5 08/01/20 24 7:42 AM ADULT LITERACY TEACHER documented as of this encounter Care Teams Canoe Builder Relationship Specialty Start Date End Date Luis Ambriz MD [facility] [address] [place] [address] PCP - General Family Medicine 02/16/22 Shaan Ramirez MD [address] [place] [address] 447135 Assigned Surgical Provider 12/04/21 Nini Patten MD [address] [place] [address] 245735 Endocrinology, Diabetes, and Metabolism 08/29/22 Nini Patten MD [address] [place] [address] 174565 Assigned Endocrinology Provider 01/20/23 Margaret Reyes, [facility] Pharmacist 08/10/23 Adria Cisneros MD [address] [place] [address] 427485 Rheumatology 11/09/23 Adria Cisneros MD [address] [place] [address] 562795 Rheumatology 11/09/23 Adria Cisneros MD [address] [place] [address] Assigned Rheumatology Provider 02/26/24 Margaret Reyes [facility] Assigned MTM Pharmacist 06/28/24 Adria Cisneros MD [address] [place] [address] 562325 Rheumatology 08/01/24 documented as of this encounter
--- OUTSIDE RECORDS SUMMARY | 2024-09-07 18:29 | XMS_ITS | Encounter Summary ---
Author Organization [place] Address [address] [place] [address] Care Team Providers Care Rack Carrier Name Role Phone ZuleymaBola [facility], [facility] Unavailable [phone] Shaan Ramirez MD Unavailable [phone] Luis Ambriz MD Primary Care Provider [phone] MD Unavailable [phone] Nini Patten MD Unavailable [phone] Nini Patten MD Unavailable [phone] Margaret Reyes [facility] Unavailable Unavailable Adria Cisneros MD Unavailable [phone] Adria Cisneros MD Unavailable [phone] Adria Cisneros MD Unavailable [phone] Margaret Reyes [facility] Unavailable Unavailable Adria Cisneros MD Unavailable [phone] Encounter Details Date Type Department Care Team (Late st Contact Info) Description 05/14/2023 [facility] Eye [address] [address] Baljinder Friend Social History Tobacco Use Types [...] st Contact Info) Description 10/06/2024 10:30 AM ROUTE SALES SPECIALIST Office Visit [facility] [address] [facility] 9th Fl Clin 9A [place] [address] Shaan Ramirez MD [address] [place] [address] 464835 03/09/2025 2:00 PM CDT Virtual Visit [address] [place] [address] Adria Cisneros MD [address] [place] [address] 88 [place], [place] 099995 documented as of this encounter Visit Diagnoses Not on filedocumented in this encounter Additional Health Concerns Assessment Noted Time PHQ-9 Depression Total Score: 4 12/25/19 23 2:25 PM CDT documented as of this encounter Care Teams Rack Carrier Relationship Specialty Start Date End Date Luis Ambriz MD [facility] [address] [place] [address] PCP - General Family Medicine 02/16/22 Bola Amor, LOCATOR, [facility] [address] [facility] 180 [place], [place] 603295 Assigned Behavioral Health Provider 12/04/21 06/27/24 Shaan Ramirez MD [address] [place] [address] [phone] Assigned Surgical Provider 12/04/[address] MD [address] [place] [address] 097875 Assigned Rheumatology Provider 02/25/22 02/25/24 Nini Patten MD [address] [place] [address] 669555 Endocrinology, Diabetes, and Metabolism 08/29/22 Nini Patten MD [address] [place] [address] 598165 Assigned Endocrinology Provider 01/20/23 Margaret Reyes [facility] Pharmacist 08/10/23 Adria Cisneros MD [address] [place] [address]234 Rheumatology 11/09/23 Adria Cisneros MD [address] [place] [address] 81405 Rheumatology 11/09/23 Adria Cisneros MD [address] [place] [address] 16697 Assigned Rheumatology Provider 02/26/24 Margaret Reyes [facility] Assigned MTM Pharmacist 06/28/24 Adria Cisneros MD [address] [place] [address] Rheumatology 08/01/24 documented as of this encounter
--- OUTSIDE RECORDS SUMMARY | 2024-09-07 18:29 | XMS_ITS | Encounter Summary ---
Author Organization [place] Address [address] [place] [address] Care Team Providers Care Feedlot Manager Name Role Phone ZuleymaBola [facility], [facility] Unavailable [phone] Shaan Ramirez MD Unavailable [phone] Luis Ambriz MD Primary Care Provider [phone] MD Unavailable [phone] Nini Patten MD Unavailable [phone] Nini Patten MD Unavailable [phone] Margaret Reyes [facility] Unavailable Unavailable Adria Cisneros MD Unavailable [phone] Adria Cisneros MD Unavailable [phone] Adria Cisneros MD Unavailable [phone] Margaret Reyes [facility] Unavailable Unavailable Adria Cisneros MD Unavailable [phone] Encounter Details Date Type Department Care Team (Late st Contact Info) Description 12/22/[address] [address] Vinh [place] Social History Tobacco [...] st Contact Info) Description 10/06/2024 10:30 AM CRAFT COORDINATOR Office Visit [facility] Eye [facility] 516 [facility] 9th Fl Clin 9A [place] [address] Shaan Ramirez MD [address] [place] [address] 047255 03/09/2025 2:00 PM CDT Virtual Visit [facility] [address] [place] [address] Adria Cisneros MD 515 [facility] 88 [place], [place] [phone] documented as of this encounter Visit Diagnoses Not on filedocumented in this encounter Additional Health Concerns Assessment Noted Time PHQ-9 Depression Total Score: 10 022 12:04 PM CDT documented as of this encounter Care Teams Feedlot Manager Relationship Specialty Start Date End Date Luis Ambriz MD [facility]NOTE 3] [address] [place] [address] PCP - General Family Medicine 02/16/22 Bola Amor, REHABILITATION COORDINATOR, [facility] [address] [facility] [address] [place] [address] Assigned Behavioral Health Provider 12/04/21 06/27/24 Shaan Ramirez MD 516 [place] [address] Assigned Surgical Provider 12/04/[address] MD [address] [place] [address] 11854 Assigned Rheumatology Provider 02/25/22 02/25/24 Nini Patten MD [address] [place] [address] Endocrinology, Diabetes, and Metabolism 08/29/22 Nini Patten MD [address] [place] [address] Assigned Endocrinology Provider 01/20/23 Margaret Reyes [facility] Pharmacist 08/10/23 Adria Cisneros MD [address] [place] [address] Rheumatology 11/09/23 Adria Cisneros MD [address] [place] [address] 82366 Rheumatology 11/09/23 Adria Cisneros MD [address] [place] [address] 47733 Assigned Rheumatology Provider 02/26/24 Margaret Reyes [facility] Assigned MTM Pharmacist 06/28/24 Adria Cisneros MD [address] [place] [address] 26976 Rheumatology 08/01/24 documented as of this encounter
--- OUTSIDE RECORDS SUMMARY | 2024-09-07 18:29 | XMS_ITS | Encounter Summary ---
Author Organization [place] Address [address] [place] [address] Care Team Providers Care Valve Seater Operator Name Role Phone Shaan Ramirze MD Unavailable [phone] Luis Ambriz MD Primary Care Provider [phone] Nini Patten MD Unavailable [phone] Nini Patten MD Unavailable [phone] Margaret Reyes [facility] Unavailable Unavailable Adria Cisneros MD Unavailable [phone] Adria Cisneros MD Unavailable [phone] Adria Cisneros MD Unavailable [phone] Margaret Reyes RP Unavailable Unavailable Adria Cisneros MD Unavailable [phone] Reason for Visit * Reason Comments Medication Therapy Management Encounter Details Date Type Department Care Team (Late st Contact Info) Description 08/20/2024 10:00 AM PALLIATIVE CARE PHYSICIAN Virtual Visit [facility] Rheumatology [facility] [address] [address] Adria Cisneros MD [address] [place] [address] Margaret Reyes, [facility] Hidradenitis suppurativa (Primary Dx); Psoriasis; Intermediate uveitis of both eyes; Vaccine counseling Social History Tobacco Use Types [...] Patient Instructions * Patient Instructions* Margaret Reyes RP - 08/20/2024 10:00 AM PALLIATIVE CARE PHYSICIAN Recommendations from today's MTM visit: Please have your standing labs updated for disease and medication monitoring. Continue Xeljanz 5 mg twice daily. Continue methotrexate 12.5 mg weekly. Continue folic acid 1 mg daily. Consider the following vaccines: tetanus booster, second dose of Shingrix to complete series. Follow-up: 3 months routine follow up. Sees cork mixer 03/09/25. It was great speaking with you today. I value your experience and would be very thankful for your time in providing feedback in our clinic survey. In the next few days, you may receive an email or text message from [employer] with a link to a survey related to your ???clinical pharmacist. To schedule another MTM appointment, please call the clinic directly or you may call the MTM scheduling line at [phone]. My Clinical Pharmacist's contact information: Please feel free to contact me with any questions or concerns you have. Margaret Reyes, PharmD Medication Therapy Management Pharmacist [facility] Rheumatology Clinic IATIVE CARE PHYSICIAN documented in this encounter Progress Notes * Margaret Reyes RPH - 08/20/2024 10:00 AM CST Medication Therapy Management (MTM) Encounter ASSESSMENT: Medication Adherence/Access: Note low PDC, patient had been missing evening dose but is back on track. Continue to monitor. Hidradenitis suppurativa/psoriasis/uveitis: Patient's uveitis and psoriasis remain stable on combination of Xeljanz + methotrexate. HS symptoms are well- controlled as well. Does not report recurrent infections as with combination of Humira + methotrexate. Would benefit from continuing current therapy and having standing labs updated for medication monitoring. Vaccine counseling: Patient is indicated for tetanus booster and second Shingrix vaccine per ACIP recommendations. PLAN: Please have your standing labs updated for disease and medication monitoring. Continue Xeljanz 5 mg twice daily. Continue methotrexate 12.5 mg weekly. Continue folic acid 1 mg daily. Consider the following vaccines: tetanus booster, second dose of Shingrix to complete series. Follow-up: 3 months routine follow up. Sees cork mixer 03/09/25. SUBJECTIVE/OBJECTIVE: Amelia Sr is a 48 year old female called for a follow up visit from 05/16/24. She was referred to me from Adria Cisneros MD. Reason for visit: Xeljanz 3 month follow up. Allergies/ADRs: Reviewed in chart Past Medical History: Reviewed in chart Tobacco: She reports that she has never smoked. She has never been exposed to tobacco smoke. She has never used smokeless tobacco. Alcohol: not assessed today Medication Adherence/Access: Note low PDC, patient had been missing evening dose but is back on track. Hidradenitis suppurativa/psoriasis/uveitis: Xeljanz 5 mg twice daily Methotrexate 12.5 mg by mouth once weekly Folic acid 1 mg daily Previously tried: Humira (worsening eye inflammation despite every 7 days dosing, recurrent infections/cellulitis) No changes since last follow up, psoriasis/HS and uveitis remain well- controlled. No new patches orlesions, no vision changes. No infections which was previously an issue when taking Humira and methotrexate. She had been forgetting her evening Xeljanz dose and didn't notice any changes but is now back on it twice daily. Places a water bottle near her bed to help her remember to take it. She plans to update her labs this week. Does not have any concerns today. Component Latest Ref Rng 05/17/2024 9:59 AM WBC 4.0 - 11.0 10e3/uL 4.7 RBC Count 3.80 - 5.20 10e6/uL 4.57 Hemoglobin 11.7 - 15.7 g/dL 14.8 Hematocrit 35.0 - 47.0 % 43.0 MCV 78 - 100 fL 94 MCH 26.5 - 33.0 pg 32.4 MCHC 31.5 - 36.5 g/dL 34.4 RDW 10.0 - 15.0 % 12.1 Platelet Count 150 - 450 10e3/uL 137 (L) Cholesterol <200 mg/dL 135 Triglycerides <150 mg/dL 108 HDL Cholesterol >=50 mg/dL 58 LDL Cholesterol Calculated <100 mg/dL 55 Non HDL Cholesterol <130 mg/dL 77 Patient Fasting? Yes Creatinine 0.51 - 0.95 mg/dL 0.83 GFR Estimate >60 mL/min/1.73m2 88 ALT 0 - 50 U/L 60 (H) Albumin 3.5 - 5.2 g/dL 4.3 CRP Inflammation <5.00 mg/L <3.00 Vaccine counseling: Patient is open to receiving recommended vaccines. She received her flu and COVID boosters this fall. Immunization History Administered Date(s) Administered COVID-19 12+ (Pfizer) 07/21/2024 COVID-19 Bivalent 18+ (Moderna) 10/19/2022 COVID-19 Monovalent 18+ (Moderna) 09/15/2020, 10/13/2020, 07/20/2021 Influenza (IIV3) PF 04/16/2014 Influenza (prior to 2023) 06/16/2015 Influenza Vaccine 18-64 (Flublok) 2019, 05/26/2022 Influenza Vaccine >6 months,quad, PF 07/03/2016, 08/07/2017, 05/16/2018, 04/14/2020 TDAP (Adacel,Boostrix) 01/01/2014, 06/18/2014 Today's Vitals: There were no vitals taken for this visit. I spent 15 minutes with this patient today. All changes were made via collaborative practice agreement with Adria Cisneros MD. A copy of the visit note was provided to the patient's provider(s). A summary of these recommendations was sent via [employer]. Margaret Reyes, PharmD Medication Therapy Management Pharmacist [facility]ology [facility] Telemedicine Visit Details Type of service: Telephone visit Start Time: 1000 End Time: 1015 Medication Therapy Recommendations No medication therapy recommendations to display IATIVE CARE PHYSICIAN documented in this encounter Plan of Treatment Upcoming Encounters Date Type Department Care Team (Late st Contact Info) Description 10/06/2024 10:30 AM PALLIATIVE CARE PHYSICIAN Office Visit [facility] Eye [facility] [address] [facility] 9th Fl Clin [address] [place] [address] Shaan Ramirez MD [address] [place] [address] 03/09/2025 2:00 PM CDT Virtual Visit [place] [address] [place] [address] Adria Cisneros MD [address] [place] [address] documented as of this encounter Visit Diagnoses Diagnosis Hidradenitis suppurativa- Primary Hidradenitis Psoriasis Other psoriasis Intermediate uveitis of both eyes Vaccine counseling documented in this encounter Additional Health Concerns Assessment Noted Time PHQ-9 Depression Total Score: 5 08/01/20 24 7:42 AM PALLIATIVE CARE PHYSICIAN documented as of this encounter Care Teams Valve Seater Operator Relationship Specialty Start Date End Date Luis Ambriz MD [facility] [address] [place] [address] PCP - General Family Medicine 02/16/22 Shaan Ramirez MD [address] [place] [address] 79136 Assigned Surgical Provider 12/04/21 Nini Patten MD [address] [place] [address] Endocrinology, Diabetes, and Metabolism 08/29/22 Nini Patten MD [address] [place] [address] Assigned Endocrinology Provider 01/20/23 Margaret Reyes [facility] Pharmacist 08/10/23 Adria Cisneros MD [address] [place] [address] [phone] Rheumatology 11/09/23 Adria Cisneros MD [address] [place] [address] 727405 Rheumatology 11/09/23 Adria Cisneros MD [address] [place] [address] [phone] Assigned Rheumatology Provider 02/26/24 Margaret Reyes [facility] Assigned MTM Pharmacist 06/28/24 Adria Cisneros MD [address] [place] [address] [phone] Rheumatology 08/01/24 documented as of this encounter
--- OUTSIDE RECORDS SUMMARY | 2024-09-07 18:29 | XMS_ITS | Encounter Summary ---
Author Organization [place] Address [address] [place] [address] Care Team Providers Care Watermelon Harvesting Supervisor Name Role Phone Zuleyma, Christalromancamila Naranjo [facility] Unavailable [phone] Shaan Ramirez MD Unavailable [phone] Lusi Ambriz MD Primary Care Provider [phone] MD Unavailable [phone] Nini Patten MD Unavailable [phone] Nini Patten MD Unavailable [phone] Margaret Reyes [facility] Unavailable Unavailable Adria Cisneros MD Unavailable [phone] Adria Cisneros MD Unavailable [phone] Adria Cisneros MD Unavailable [phone] Margaret Reyes [facility] Unavailable Unavailable Adria Cisneros MD Unavailable [phone] Encounter Details Date Type Department Care Team (Late st Contact Info) Description 12/12/2021 [facility] Eye [place] [id number] [facility] [address] [address] Shaan Ramirez MD [address] [place] [address] [phone] Social History Tobacco Use Types Packs/Day Years [...] st Contact Info) Description 10/06/2024 10:30 AM AIRLINE RESERVATION AGENT Office Visit [facility] Eye [address] 9[facility] Clin [address] [place] [address] Shaan Ramirez MD [address] [place] [address] 03/09/2025 2:00 PM CDT Virtual Visit [facility] [address] [place] [address] Adria Cisneros MD [address] [place] [address] documented as of this encounter Visit Diagnoses Not on filedocumented in this encounter Additional Health Concerns Assessment Noted Time PHQ-9 Depression Total Score: 10 022 12:04 PM CDT documented as of this encounter Care Teams Watermelon Harvesting Supervisor Relationship Specialty Start Date End Date Luis Ambriz MD [facility] [address] [place] [address] PCP - General Family Medicine 02/16/22 Bola Amor, PAY PER CLICK STRATEGIST, LADC [address] [facility] [address] [place] [address] Assigned Behavioral Health Provider 12/04/21 06/27/24 Shaan Ramirez MD [address] [place] [address] 26153 Assigned Surgical Provider 12/04/[address] MD [address] [place] [address] Assigned Rheumatology Provider 02/25/22 02/25/24 Nini Patten MD [address] [place] [address] Endocrinology, Diabetes, and Metabolism 08/29/22 Nini Patten MD [address] [place] [address] Assigned Endocrinology Provider 01/20/23 Margaret Reyes [facility] Pharmacist 08/10/23 Adria Cisneros MD [address] [place] [address] Rheumatology 11/09/23 Adria Cisneros MD [address] [place] [address] Rheumatology 11/09/23 Adria Cisneros MD [address] [place] [address]902 Assigned Rheumatology Provider 02/26/24 Margaret Reyes RPH Assigned MTM Pharmacist 06/28/24 Adria Cisneros MD [address] [place] [address] [phone] Rheumatology 08/01/24 documented as of this encounter
--- OUTSIDE RECORDS SUMMARY | 2024-09-07 18:29 | XMS_ITS | Encounter Summary ---
Author Organization [place] Address [address] [place] [address] 117[address] Care Team Providers Care Survival Equipment Repairer Name Role Phone Shaan Ramirez MD Unavailable [phone] Luis Ambriz MD Primary Care Provider [phone] Nini Patten MD Unavailable [phone] Nini Patten MD Unavailable [phone] Margaret Reyes [facility] Unavailable Unavailable Adria Cisneros MD Unavailable [phone] Adria Cisneros MD Unavailable [phone] Adria Cisneros MD Unavailable [phone] Margaret Reyes [facility] Unavailable Unavailable Adria Cisneros MD Unavailable [phone] Encounter Details Date Type Department Care Team (Latest Contact Info) Description 08/22/2024 Travel Social History Tobacco Use Types Packs/Day [...] st Contact Info) Description 10/06/2024 10:30 AM SANDER AND BUFFER Office Visit [facility] Eye [facility] [address] [facility] 9[address] Fl Clin [address] [place] [address] Shaan Ramirez MD [address] [place] [address] 03/09/2025 2:00 PM CDT Virtual Visit [facility] [address] [place] [address] Adria Cisneros MD [address] [address] documented as of this encounter Visit Diagnoses Not on filedocumented in this encounter Additional Health Concerns Assessment Noted Time PHQ-9 Depression Total Score: 5 08/01/20 24 7:42 AM SANDER AND BUFFER documented as of this encounter Care Teams Survival Equipment Repairer Relationship Specialty Start Date End Date Luis Ambriz MD [facility] [address] [place] [address] PCP - General Family Medicine 02/16/22 Shaan Ramirez MD [address] [place] [address] 12133 Assigned Surgical Provider 12/04/21 Nini Patten MD [address] [place] [address] Endocrinology, Diabetes, and Metabolism 08/29/22 Nini Patten MD [address] [place] [address] 75172 Assigned Endocrinology Provider 01/20/23 Margaret Reyes [facility] Pharmacist 08/10/23 Adria Cisneros MD [address] [place] [address] Rheumatology 11/09/23 Adria Cisneros MD [address] [place] [address] 924995 Rheumatology 11/09/23 Adria Cisneros MD [address] [place] [address] 972955 Assigned Rheumatology Provider 02/26/24 Margaret Reyes [facility] Assigned MTM Pharmacist 06/28/24 Adria Cisneros MD [address] [place] [address] Rheumatology 08/01/24 documented as of this encounter
--- OUTSIDE RECORDS SUMMARY | 2024-09-07 18:29 | XMS_ITS | Encounter Summary ---
Author Organization [facility] Address [address] [place] [address] Care Team Providers Care Oyster Unloader Name Role Phone ZuleymaBola [facility] Unavailable [phone] Shaan Ramirez MD Unavailable [phone] Luis Ambriz MD Primary Care Provider [phone] MD Unavailable [phone] Nini Patten MD Unavailable [phone] Nini Patten MD Unavailable [phone] Margaret Reyes [facility] Unavailable Unavailable Adria Cisneros MD Unavailable [phone] Adria Cisneros MD Unavailable [phone] Adria Cisneros MD Unavailable [phone] Margaret Reyes [facility] Unavailable Unavailable Adria Cisneros MD Unavailable [phone] Encounter Details Date Type Department Care Team (Late st Contact Info) Description 09/26/2022 [facility] Medical Advice [facility] Rheumatology Clinic [address] [address] MD Health [facility], Rheumatology [address] [place] [address] Social History Tobacco Use Types Packs/Day [...] st Contact Info) Description 10/06/2024 10:30 AM BALL FRINGE MACHINE OPERATOR Office Visit [facility] Eye [address] 9[address] Fl Clin [address] [place] [address] Shaan Ramirez MD [address] [place] [address] 274645 03/09/2025 2:00 PM CDT Virtual Visit [facility] [address] [place] [address] Adria Cisneros MD [address] [place] [address] 88 [place], [place] 193165 documented as of this encounter Visit Diagnoses Not on filedocumented in this encounter Additional Health Concerns Assessment Noted Time PHQ-9 Depression Total Score: 10 023 9:59 AM BALL FRINGE MACHINE 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 Care Teams Oyster Unloader Relationship Specialty Start Date End Date Luis Ambriz MD [facility] [address] [place] [address] PCP - General Family Medicine 02/16/22 Bola Amor, MEAT CLERK, [facility] [address] [facility] [address] [place] [address] Assigned Behavioral Health Provider 12/04/21 06/27/24 Shaan Ramirez MD [address] [place] [address] Assigned Surgical Provider 12/04/[address] MD [address] [place] [address] Assigned Rheumatology Provider 02/25/22 02/25/24 Nini Patten MD [address] [place] [address] Endocrinology, Diabetes, and Metabolism 08/29/22 Nini Patten MD [address] [place] [address] Assigned Endocrinology Provider 01/20/23 Margaret Reyes [facility] Pharmacist 08/10/23 Adria Cisneros MD [address] [place] [address] Rheumatology 11/09/23 Adria Cisneros MD [address] [place] [address] Rheumatology 11/09/23 Adria Cisneros MD [address] [place] [address] 08368 Assigned Rheumatology Provider 02/26/24 Margaret Reyes [facility] Assigned MTM Pharmacist 06/28/24 Adria Cisneros MD [address] [place] [address] Rheumatology 08/01/24 documented as of this encounter
--- OUTSIDE RECORDS SUMMARY | 2024-09-07 18:29 | XMS_ITS | Encounter Summary ---
Author Organization [place] Address [address] [place] [address] Care Team Providers Care Textile Coating Machine Operator Name Role Phone ZuleymaBola [facility] Unavailable [phone] Shaan Ramirez MD Unavailable [phone] Luis Ambriz MD Primary Care Provider [phone] Nini Patten MD Unavailable [phone] Nini Patten MD Unavailable [phone] Margaret Reyes [facility] Unavailable Unavailable Adria Cisneros MD Unavailable [phone] Adria Cisneros MD Unavailable [phone] Adria Cisneros MD Unavailable [phone] Margaret Reyes [facility] Unavailable Unavailable Adria Cisneros MD Unavailable [phone] Encounter Details Date Type Department Care Team (Late st Contact Info) Description 05/14/2024 [facility] Medical Advice [facility] Rheumatology Clinic [address] [address] Margaret Reyes, [facility] Social History Tobacco Use Types Packs/Day [...] st Contact Info) Description 10/06/2024 10:30 AM RISK MANAGEMENT CONSULTANT Office Visit [facility] Eye Clinic [facility] [address] [facility] 9th Fl Clin [address] [place] [address] Shaan Ramirez MD [address] [place] [address] 434265 03/09/2025 2:00 PM CDT Virtual Visit [address] [phone] Adria Cisneros MD 515 [facility] 88 [place], [place] 770305 documented as of this encounter Visit Diagnoses Not on filedocumented in this encounter Additional Health Concerns Assessment Noted Time PHQ-9 Depression Total Score: 4 12/25/19 23 2:25 PM CDT documented as of this encounter Care Teams Textile Coating Machine Operator Relationship Specialty Start Date End Date Luis Ambriz MD [facility] [address] [place] [address] PCP - General Family Medicine 02/16/22 Bola Amor, PUBLICATIONS MANAGER, [facility] [address] [facility] [address] [place], [place] 998865 Assigned Behavioral Health Provider 12/04/21 06/27/24 Shaan Ramirez MD [address] [place] [address] 820685 Assigned Surgical Provider 12/04/21 Nini Patten MD [address] [place], [place] 225605 Endocrinology, Diabetes, and Metabolism 08/29/22 Nini Patten MD [address] [place] [address] 852625 Assigned Endocrinology Provider 01/20/23 Margaret Reyes [facility] Pharmacist 08/10/23 Adria Cisneros MD [address] [place] [address] Rheumatology 11/09/23 Adria Cisneros MD [address] [place] [address] Rheumatology 11/09/23 Adria Cisneros MD [address] [place] [address]40[address] Assigned Rheumatology Provider 02/26/24 Margaret Reyes [facility] Assigned MTM Pharmacist 06/28/24 Adria Cisneros MD [address] [place] [address] Rheumatology 08/01/24 documented as of this encounter
[2024-09-07 18:50] LABS: Chloride* 103 mmol/L (96-114); Potassium* 3.5 mmol/L (3.6-5.1); Sodium* 139 mmol/L (135-149)
[2024-09-07 18:53] LABS: Anion Gap 8 mEq/L (7-15); Blood Urea Nitrogen* 13 mg/dL (5-24); Carbon Dioxide* 28 mmol/L (20-32); Creatinine* 0.7 mg/dL (0.5-1.5); Est. Creatinine Clearance* 93.01; Estimated Glomerular Filt Rate 107 ml/min
[2024-09-07 18:54] LABS: Calcium* 8.9 mg/dL (8.4-10.6); Glucose* 83 mg/dL (60-115)
== END 2024-09-07 19:12 | disposition home or self-care (01) ==
PROVIDERS: Emergency Provider Emergency Medicine Emergency Medical Services; PCP Family Medicine
DX: R07.89 Other chest pain (principal)
CPT/HCPCS: 36415; 80048; 84484; 85025; 93005; 99284; A9270

== ENCOUNTER 2025-01-25 22:26 | Outpatient (CLI) | payer OTHER, SELFPAY ==
--- OUTSIDE RECORDS SUMMARY | 2025-01-21 13:00 | XMS_ITS | Encounter Summary ---
Author Organization [facility] Address [address] [place] [address] 91186 Care Team Providers Care Refractive Surgeon Name Role Phone Shaan Ramirez MD Unavailable [phone] Luis Ambriz MD Primary Care Provider [phone] Nini Patten MD Unavailable [phone] Margaret Reyes [facility] Unavailable Unavailable Adria Cisneros MD Unavailable [phone] Adria Cisneros MD Unavailable [phone] Adria Cisneros MD Unavailable [phone] Margaret Reyes [facility] Unavailable Unavailable Adria Cisneros MD Unavailable [phone] Reason for Visit * Reason Comments Medication Therapy Management * (Routine) - Pending Review Specialty Diagnoses / Procedures Referred By Contac t Referred To Contact Referral ID Status Reason Start Date Expiration Date V isits Requested Visits Authorized [id number] Pending Review 01/16/2025 01/16/2026 1 1 Encounter Details Date Type Department Care Team (Late st Contact Info) Description 01/21/2025 1:00 PM CDT Virtual Visit [facility] Rheumatology [facility] [address] [facility] [address] [place] [address] Adria Cisneros MD [address] [place] [address] [id number] Margaret Reyes RP Hidradenitis suppurativa (Primary Dx); Psoriasis; Intermediate uveitis [...] * Patient Instructions* Margaret Reyes RPH - 01/21/2025 1:00 PM CDT Recommendations from today's MTM visit: Please have your standing labs updated at your earliest convenience for methotrexate monitoring. Continue Xeljanz ER 11 mg once daily. Continue methotrexate 12.5 mg weekly. Continue folic acid 1 mg daily. Continue to consider the following vaccines: tetanus booster, second dose of Shingrix to complete series. Follow-up: 6 months routine, will be due for annual CMR. Sees elastic tape inserter 03/09/25. It was great speaking with you today. I value your experience and would be very thankful for your time in providing feedback in our clinic survey. In the next few days, you may receive an email or text message from [employer] with a link to a survey related to your ???clinical pharmacist. To schedule another MTM appointment, please call the clinic directly or you may call the MTM scheduling line at [phone]. My Clinical Pharmacist's contact information: Please feel free to contact me with any questions or concerns you have. Margaret Reyes, PharmD Medication Therapy Management Pharmacist [facility] documented in this encounter Progress Notes * Margaret Reyes RPH - 01/21/2025 1:00 PM CDT Medication Therapy Management (MTM) Encounter ASSESSMENT: Medication Adherence/Access: No issues identified. Switch from IR to ER Xeljanz resolved adherence concerns. Hidradenitis suppurativa/psoriasis/uveitis: Patient's uveitis, HS, and psoriasis are subjectively well controlled on Xeljanz and methotrexate, and adherence to methotrexate has improved considerably with switch to ER/once daily dosing. Patient is due for methotrexate monitoring labs. Would benefit from continuing current therapy. Vaccine counseling: Patient is indicated for tetanus booster and second Shingrix vaccine per ACIP recommendations. No changes from last visit. PLAN: Please have your standing labs updated at your earliest convenience for methotrexate monitoring. Continue Xeljanz ER 11 mg once daily. Continue methotrexate 12.5 mg weekly. Continue folic acid 1 mg daily. Continue to consider the following vaccines: tetanus booster, second dose of Shingrix to complete series. Follow-up: 6 months routine, will be due for annual CMR. Sees elastic tape inserter 03/09/25. SUBJECTIVE/OBJECTIVE: Amelia Sr is a 48 year old female called for a follow up visit from 10/10/24. She was referred to Adria Rahman MD. Reason for visit: Xeljanz transition to ER formulation follow up. Allergies/ADRs: Reviewed in chart Past Medical History: Reviewed in chart Tobacco: She reports that she has never smoked. She has never been exposed to tobacco smoke. She has never used smokeless tobacco. Alcohol: not assessed today Medication Adherence/Access: No issues identified. Hidradenitis suppurativa/psoriasis/uveitis: Xeljanz 11 mg daily Methotrexate 12.5 mg by mouth once weekly Folic acid 1 mg daily Previously tried: Humira (worsening eye inflammation despite every 7 days dosing, recurrent infections/cellulitis) Patient had been forgetting her evening Xeljanz dose, so transition was made at last visit in extended release formulation. She reports today that her adherence has improved considerably since this change was made. She feels that her HS, psoriasis, and uveitis are all currently well-controlled. No recent infections or other side effects. She has no questions or concerns today. Labs updated 08/22/24 Vaccine counseling: Patient is open to receiving recommended vaccines. Immunization History Administered Date(s) Administered COVID-19 12+ (Pfizer) 07/21/2024 COVID-19 Bivalent 18+ (Moderna) 10/19/2022 COVID-19 Monovalent 18+ (Moderna) 09/15/2020, 10/13/2020, 07/20/2021 Influenza (IIV3) PF 04/16/2014 Influenza (prior to 2023) 06/16/2015 Influenza Vaccine 18-64 (Flublok) 2019, 05/26/2022 Influenza Vaccine >6 months,quad, PF 07/03/2016, 08/07/2017, 05/16/2018, 04/14/2020 TDAP (Adacel,Boostrix) 01/01/2014, 06/18/2014 Today's Vitals: There were no vitals taken for this visit. I spent 12 minutes with this patient today. All changes were made via collaborative practice agreement with Adria Cisneros MD. A copy of the visit note was provided to the patient's provider(s). A summary of these recommendations was sent via [employer]. Margaret Reyes, PharmD Medication Therapy Management Pharmacist [facility] Telemedicine Visit Details Type of service: Video Conference via [employer] Start Time: 1300 End Time: 1312 Medication Therapy Recommendations No medication therapy recommendations to display documented in this encounter Plan of Treatment Upcoming Encounters Date Type Department Care Team (Late st Contact Info) Description 02/09/2025 10:00 AM CDT Office Visit [facility] Eye [facility] - [address] 9[facility] [address] [place] [phone] Shaan Ramirez MD [address] [place] [address] [phone] 03/09/2025 2:00 PM CDT Virtual Visit [address] [address] Adria Cisneros MD [address] [place] [address] [phone] documented as of this encounter Visit Diagnoses Diagnosis Hidradenitis suppurativa- Primary Hidradenitis Psoriasis Other psoriasis Intermediate uveitis of both eyes Vaccine counseling documented in this encounter Additional Health Concerns Assessment Noted Time PHQ-9 Depression Total Score: 5 08/01/20 24 7:42 AM ENGINEER CHIEF documented as of this encounter Care Teams Refractive Surgeon Relationship Specialty Start Date End Date Luis Ambriz MD [facility] [address] [place] [address] PCP - General Family Medicine 02/16/22 Shaan Ramirez MD [address] [place] [address] [phone] Assigned Surgical Provider 12/04/21 Nini Patten MD [address] [place] [address] [phone] Endocrinology, Diabetes, and Metabolism 08/29/22 Margaret Reyes RPH Pharmacist 08/10/23 Adria Cisneros MD [address] [place] [address] Rheumatology 11/09/23 Adira Cisneros MD [address] [place] [address] 99542 Rheumatology 11/09/23 Adria Cisneros MD [address] [place] [address] 90703 Assigned Rheumatology Provider 02/26/24 Margaret Reyes RPH Assigned MTM Pharmacist 06/28/24 Adria Cisneros MD [address] [place] [address]89 Rheumatology 08/01/24 documented as of this encounter
--- OUTSIDE RECORDS SUMMARY | 2025-01-21 13:00 | XMS_ITS | Encounter Summary ---
Author Organization [facility] Address [address] [place] [address] 704[address] Care Team Providers Care Display Associate Name Role Phone Shaan Ramirez MD Unavailable [phone] Luis Ambriz MD Primary Care Provider [phone] Nini Patten MD Unavailable [phone] Margaret Reyes [facility] Unavailable Unavailable Adria Cisneros MD Unavailable [phone] Adria Cisneros MD Unavailable [phone] Adria Cisneros MD Unavailable [phone] Margaret Reyes [facility] Unavailable Unavailable Adria Cisneros MD Unavailable [phone] Reason for Visit * Reason Comments Medication Therapy Management * (Routine) - Pending Review Specialty Diagnoses / Procedures Referred By Contac t Referred To Contact Referral ID Status Reason Start Date Expiration Date V isits Requested Visits Authorized [id number] Pending Review 01/16/2025 01/16/2026 1 1 Encounter Details Date Type Department Care Team (Late st Contact Info) Description 01/21/2025 1:00 PM CDT Virtual Visit [facility] Rheumatology [facility] [address] [facility] [address] [place] [address] Adria Cisneros MD [address] [place] [address] [phone] Margaret Reyes RP Hidradenitis suppurativa (Primary Dx); [...] will be due for annual CMR. Sees cutch cleaner 03/09/25. It was great speaking with you today. I value your experience and would be very thankful for your time in providing feedback in our clinic survey. In the next few days, you may receive an email or text message from [employer] with a link to a survey related to your ???clinical pharmacist. To schedule another MTM appointment, please call the clinic directly or you may call the MTM scheduling line at [phone]. My Clinical Pharmacist's contact information: Please feel free to contact me with any questions or concerns you have. Margaret Reyes, PharmD Medication Therapy Management Pharmacist [facility] documented in this [...] will be due for annual CMR. Sees cutch cleaner 03/09/25. SUBJECTIVE/OBJECTIVE: Amelia Sr is a 48 [...] summary of these recommendations was sent via [employer]. Margaret Reyes, PharmD Medication Therapy Management Pharmacist [facility] Clinic Telemedicine Visit Details Type of service: Video Conference via [employer] Start Time: 1300 End Time: 1312 Medication Therapy Recommendations No medication therapy recommendations to display documented in this encounter Plan of Treatment Upcoming Encounters Date Type Department Care Team (Late st Contact Info) Description 02/09/2025 10:00 AM CDT Office Visit [facility] Eye [facility] - [address] [facility] [address] [place] [phone] Shaan Ramirez MD [address] [place] [address] 607945 03/09/2025 2:00 PM CDT Virtual Visit [address] [address] Adria Cisneros MD [address] [place] [address] [phone] documented as of this encounter Visit Diagnoses Diagnosis Hidradenitis suppurativa- Primary Hidradenitis Psoriasis Other psoriasis Intermediate uveitis of both eyes Vaccine counseling documented in this encounter Additional Health Concerns Assessment Noted Time PHQ-9 Depression Total Score: 5 08/01/20 24 7:42 AM PORT SURVEYOR documented as of this encounter Care Teams Display Associate Relationship Specialty Start Date End Date Luis Ambriz MD [facility] [address] [place] [address] PCP - General Family Medicine 02/16/22 Shaan Ramirez MD [address] [place] [address] 275285 Assigned Surgical Provider 12/04/21 Nini Patten MD [address] [place] [address] [phone] Endocrinology, Diabetes, and Metabolism 08/29/22 Margaret Reyes RPH Pharmacist 08/10/23 Adria Cisneros MD [address] [place] [address] 81662 Rheumatology 11/09/23 Adria Cisneros MD [address] [place] [address] 33368 Rheumatology 11/09/23 Adria Cisneros MD [address] [place] [address] 25046 Assigned Rheumatology Provider 02/26/24 Margaret Reyes RPH Assigned MTM Pharmacist 06/28/24 Adria Cisneros MD [address] [place] [address] Rheumatology 08/01/24 documented as of this encounter
--- OUTSIDE RECORDS SUMMARY | 2025-02-02 18:01 | XMS_ITS | Encounter Summary ---
Author Organization [facility] Address [address] [place] [address] Care Team Providers Care Gutter Mouth Cutter Name Role Phone Zuleyma Christalromancamila Naranjo [facility], [facility] Unavailable [phone] Shaan Ramirez MD Unavailable [phone] Luis Ambriz MD Primary Care Provider [phone] MD Unavailable [phone] Nini Patten MD Unavailable [phone] Nini Patten MD Unavailable [phone] Margaret Reyes [facility] Unavailable Unavailable Adria Cisneros MD Unavailable [phone] Adria Cisneros MD Unavailable [phone] Adria Cisneros MD Unavailable [phone] Margaret Reyes [facility] Unavailable Unavailable Adria Cisneros MD Unavailable [phone] Encounter Details Date Type Department Care Team (Late st Contact Info) Description 01/07/2022 [facility] Medical [facility] Eye [place] [id number] [facility] [facility] [address] [place] [address] Shaan Ramirez MD [address] [place] [address] [phone] Intermediate uveitis of both eyes (Primary Dx) [...] Description 02/09/2025 10:00 AM CDT Office Visit [facility] Eye [place] [id number] [facility] 9th Fl Clin [address] [place] [address] Shaan Ramirez MD [address] [place] [address] [phone] 03/09/2025 2:00 PM CDT Virtual Visit [facility] [phone] [place] [address] [place] [address] Adria Cisneros MD [address] [place] [address] [phone] documented as of this encounter Visit Diagnoses Diagnosis Intermediate uveitis of both eyes- Primary documented in this encounter Additional Health Concerns Assessment Noted Time PHQ-9 Depression Total Score: 7 01/05/20 22 12:23 PM CDT documented as of this encounter Care Teams Gutter Mouth Cutter Relationship Specialty Start Date End Date Luis Ambriz MD [facility] [address] [place] [address] PCP - General Family Medicine 02/16/22 Bola Amor, HOUSING MANAGEMENT OFFICER, [facility] [address] [facility] [address] [address] Assigned Behavioral Health Provider 12/04/21 06/27/24 Shaan Ramirez MD [address] [place] [address]498 Assigned Surgical Provider 12/04/[address] MD [facility] [address] [place] [address] Assigned Rheumatology Provider 02/25/22 02/25/24 Nini Patten MD [address] [place] [address] Endocrinology, Diabetes, and Metabolism 08/29/22 Nini Patten MD [address] [place] [address] 10066 Assigned Endocrinology Provider 01/20/23 11/25/24 Margaret Reyes [facility] 08/10/23 Adria Cisneros MD [address] [place] [address] 13043 Rheumatology 11/09/23 Adria Cisneros MD [address] [place] [address]115 Rheumatology 11/09/23 Adria Cisneros MD [address] [place] [address] Assigned Rheumatology Provider 02/26/24 Margaret Reyes [facility] Assigned MTM Pharmacist 06/28/24 Adria Cisneros MD [address] [place] [address] [phone] Rheumatology 08/01/24 documented as of this encounter
--- OUTSIDE RECORDS SUMMARY | 2025-02-02 18:01 | XMS_ITS | Encounter Summary ---
Author Organization [facility] Address [address] [place] [address]015 Care Team Providers Care Civil Design Specialist Name Role Phone ZuleymaChristalromancamila Naranjo [facility], [facility] Unavailable [phone] Shaan Ramirez MD Unavailable [phone] Luis Ambriz MD Primary Care Provider [phone] MD Unavailable [phone] Nini Patten MD Unavailable [phone] Nini Patten MD Unavailable [phone] Margaret Reyes [facility] Unavailable Unavailable Adria Cisneros MD Unavailable [phone] Adria Cisneros MD Unavailable [phone] Adria Cisneros MD Unavailable [phone] Margaret Reyes [facility] Unavailable Unavailable Adria Cisneros MD Unavailable [phone] Encounter Details Date Type Department Care Team (Late st Contact Info) Description 09/13/2022 [facility] Medical Advice [facility] Clinic [address] [address] MD Health [facility], Rheumatology [address] [place] [address] Social History Tobacco Use Types Packs/Day [...] at 10A Jayla Elise RN Rheumatology Clinic CAL SCREENER * Telephone Encounter - Jayla Elise RN - 09/13/2022 2:37 PM CSTSummary: patient update on culture results Spoke to patient regarding her MyC message update about staph infection. Reporting she saw sas statistical programmer, Dr. Francisca Lomeli at [facility] d/t recurrent skin infections. This visit included a nasal swab/culture of her nares. Patient has included a copy of the visit note and will upload the culture results later today whichpatient reports was positive for Staph infection. International Accounting Manager is recommending extensive antbx regime. Patient verifies she 1-is not taking methotrexate 2-will recheck her labs on 09/25 3--stopped humira apprx 6 wks ago on her own thinking it was causing her repeated infections. Message update to Dr. Lane. CAL SCREENER CAL SCREENER documented in this encounter Plan of Treatment Upcoming Encounters Date Type Department Care Team (Late st Contact Info) Description 02/09/2025 10:00 AM CDT Office Visit [facility] Eye [facility] [address] [facility] 9th Fl Clin [address] [place] [address] Shaan Ramirez MD [address] [place] [address] 03/09/2025 2:00 PM CDT Virtual Visit [facility] [address] [place] [address] Adria Cisneros MD [address] [facility] 88 [place], [place] 509095 documented as of this encounter Visit Diagnoses Not on filedocumented in this encounter Additional Health Concerns Assessment Noted Time PHQ-9 Depression Total Score: 10 023 9:59 AM MEDICAL SCREENER documented as of this encounter Care Teams Civil Design Specialist Relationship Specialty Start Date End Date Luis Ambriz MD [facility] [address] [place] [address] PCP - General Family Medicine 02/16/22 Bola Amor, [facility], [facility] [address] [place] [address] [place] [address] Assigned Behavioral Health Provider 12/04/21 06/27/24 Shaan Ramirez MD [address] [place] [address] Assigned Surgical Provider 12/04/[address] MD [facility] [address] [place], [place] [address] Assigned Rheumatology Provider 02/25/22 02/25/24 Nini Patten MD [address] [place] [address] Endocrinology, Diabetes, and Metabolism 08/29/22 Nini Patten MD [address] [place] [address] Assigned Endocrinology Provider 01/20/23 11/25/24 Margaret Reyes [facility] Pharmacist 08/10/23 Adria Cisneros MD [address] [place] [address] Rheumatology 11/09/23 Adria Cisneros MD [address] [place] [address] Rheumatology 11/09/23 Adria Cisneros MD [address] [place] [address] Assigned Rheumatology Provider 02/26/24 Margaret Reyes [facility] Assigned MTM Pharmacist 06/28/24 Adria Cisneros MD [address] [place] [address]37 Rheumatology 08/01/24 documented as of this encounter
--- OUTSIDE RECORDS SUMMARY | 2025-02-02 18:01 | XMS_ITS | Encounter Summary ---
Author Organization [facility] Address [address] [place] [address]83 Care Team Providers Care Scanning Coordinator Name Role Phone ZuleymaChristalromancamila Naranjo [facility], [facility] Unavailable [phone] Shaan Ramirez MD Unavailable [phone] Luis Ambriz MD Primary Care Provider [phone] MD Unavailable [phone] Nini Patten MD Unavailable [phone] Nini Patten MD Unavailable [phone] Margaret Reyes [facility] Unavailable Unavailable Adria Cisneros MD Unavailable [phone] Adria Cisnreos MD Unavailable [phone] Adria Cisneros MD Unavailable [phone] Margaret Reyes [facility] Unavailable Unavailable Adria Cisneros MD Unavailable [phone] Encounter Details Date Type Department Care Team (Late st Contact Info) Description 02/24/2022 [facility] [place] Medical Advice [facility] Rheumatology Clinic [address] [address] MD Health [facility], Rheumatology [address] [place] [address] Social History Tobacco Use Types Packs/Day [...] Description 02/09/2025 10:00 AM CDT Office Visit [facility] Eye [facility] [address] [facility] 9th Fl Clin [address] [place] [address] Shaan Ramirez MD [address] [place] [address] 036105 03/09/2025 2:00 PM CDT Virtual Visit [facility] [address] [place] [address] Adria Cisneros MD [address] [place] [address] 88 [place], [place] 593675 documented as of this encounter Visit Diagnoses Not on filedocumented in this encounter Additional Health Concerns Assessment Noted Time PHQ-9 Depression Total Score: 6 02/03/20 22 9:26 AM CDT documented as of this encounter Care Teams Scanning Coordinator Relationship Specialty Start Date End Date Luis Ambriz MD [facility] [address] [place] [address] PCP - General Family Medicine 02/16/22 Bola Amor, SCREEN EXAMINER, [facility] [address] [facility] [address] [place], [place] 370734[address] Assigned Behavioral Health Provider 12/04/21 06/27/24 Shaan Ramirez MD [address] [place] [address] Assigned Surgical Provider 12/04/[address] MD [facility] [address] [place] [address] Assigned Rheumatology Provider 02/25/22 02/25/24 Nini Patten MD [address] [place] [address] Endocrinology, Diabetes, and Metabolism 08/29/22 Nini Patten MD [address] [place] [address] Assigned Endocrinology Provider 01/20/23 11/25/24 Margaret Reyes [facility] Pharmacist 08/10/23 Adria Cisneros MD [address] [place] [address] Rheumatology 11/09/23 Adira Cisneros MD [address] [place] [address] Rheumatology 11/09/23 Adria Cisneros MD [address] [place] [address] Assigned Rheumatology Provider 02/26/24 Margaret Reyes [facility] Assigned MTM Pharmacist 06/28/24 Adria Cisneros MD [address] [place] [address] Rheumatology 08/01/24 documented as of this encounter
--- OUTSIDE RECORDS SUMMARY | 2025-02-02 18:01 | XMS_ITS | Encounter Summary ---
Author Organization [place] Address [address] [place] [address] 28683 Care Team Providers Care Technical Aid Name Role Phone Zuleyma Christalromancamila Naranjo [facility], [facility] Unavailable +[phone] Shaan Ramirez MD Unavailable [phone] Luis Ambriz MD Primary Care Provider [phone] MD Unavailable +[phone] Nini Patten MD Unavailable +[phone] Nini Patten MD Unavailable [phone] Margaret Reyes [facility] Unavailable Unavailable Adria Cisneros MD Unavailable [phone] Adria Cisneros MD Unavailable [phone] Adria Cisneros MD Unavailable +[phone] Margaret Reyes [facility] Unavailable Unavailable Adria Cisneros MD Unavailable +[phone] Encounter Details Date Type Department Care Team (Late st Contact Info) Description 12/12/2021 [facility] Eye [place] [id number] [facility] 9 Id Clin 9A [place] [address] Shaan Ramirez MD [address] [place] [address] 707125 Social History Tobacco Use Types Packs/Day Years [...] Description 02/09/2025 10:00 AM CDT Office Visit [facility] Eye [address] 9[facility] Clin 9A [place] [address] Shaan Ramirez MD [address] [place] [address] 03/09/2025 2:00 PM CDT Virtual Visit [facility] [address] [place] [address] Adria Cisneros MD [address] [place] [address] documented as of this encounter Visit Diagnoses Not on filedocumented in this encounter Additional Health Concerns Assessment Noted Time PHQ-9 Depression Total Score: 10 022 12:04 PM CDT documented as of this encounter Care Teams Technical Aid Relationship Specialty Start Date End Date Luis Ambriz MD [facility] [address] [place] [address] PCP - General Family Medicine 02/16/22 Bola Amor, ROPE TIER, LADC [address] [facility] [address] [place] [address] Assigned Behavioral Health Provider 12/04/21 06/27/24 Shaan Ramirez MD [address] [place] [address] 89360 Assigned Surgical Provider 12/04/[address] MD [facility] [address] [place] [address] Assigned Rheumatology Provider 02/25/22 02/25/24 Nini Patten MD [address] [place] [address] Endocrinology, Diabetes, and Metabolism 08/29/22 Nini Patten MD [address] [place] [address]805 Assigned Endocrinology Provider 01/20/23 11/25/24 Margaret Reyes [facility] Pharmacist 08/10/23 Adria Cisneros MD [address] [place] [address]104 Rheumatology 11/09/23 Adria Cisneros MD [address] [place] [address] Rheumatology 11/09/23 Adria Cisneros MD [address] [place] [address] 52392 Assigned Rheumatology Provider 02/26/24 Margaret Reyes [facility] Assigned MTM Pharmacist 06/28/24 Adria Cisneros MD [address] [place] [address] 98106 Rheumatology 08/01/24 documented as of this encounter
--- OUTSIDE RECORDS SUMMARY | 2025-02-02 18:01 | XMS_ITS | Encounter Summary ---
Author Organization [place] Address [address] [place] [address]254 Care Team Providers Care Hogshead Dumper Name Role Phone Eve Amorcamila Naranjo [facility], [facility] Unavailable [phone] Shaan Ramirez MD Unavailable +[phone] Luis Ambriz MD Primary Care Provider [phone] MD Unavailable [phone] Nini Patten MD Unavailable [phone] Nini Patten MD Unavailable [phone] Margaret Reyes [facility] Unavailable Unavailable Adria Cisneros MD Unavailable [phone] Adria Cisneros MD Unavailable [phone] Adria Cisneros MD Unavailable [phone] Margaret Reyes [facility] Unavailable Unavailable Adria Cisneros MD Unavailable [phone] Encounter Details Date Type Department Care Team (Late st Contact Info) Description 11/29/2021 [facility] Eye [place] 432226 [facility] 9 N[address] Clin 9[address] [place] [address] Shaan Ramirez MD [address] [place] [address] 472495 Social History Tobacco Use Types Packs/Day Years [...] Description 02/09/2025 10:00 AM CDT Office Visit [address] 9[facility] 9A [place] [address] Shaan Ramirez MD [address] [place] [address] 691745 03/09/2025 2:00 PM CDT Virtual Visit [address] [address] Adria Cisneros MD [address] [place] [address] documented as of this encounter Visit Diagnoses Not on filedocumented in this encounter Additional Health Concerns Assessment Noted Time PHQ-9 Depression Total Score: 6 11/25/19 22 7:04 AM CDT documented as of this encounter Care Teams Hogshead Dumper Relationship Specialty Start Date End Date Luis Ambriz MD [facility] [address] [place] [address] PCP - General Family Medicine 02/16/22 Bola Amor, GOLF BALL MARKER, [facility] [address] [facility] 180 [place] [address] Assigned Behavioral Health Provider 12/04/21 06/27/24 Shaan Ramirez MD [address] [place] [address] 13391 Assigned Surgical Provider 12/04/[address] MD [facility] [address] [place] [address] Assigned Rheumatology Provider 02/25/22 02/25/24 Nini Patten MD [address] [place] [address]1272 Endocrinology, Diabetes, and Metabolism 08/29/22 Nini Patten MD [address] [place] [address] 43989 Assigned Endocrinology Provider 01/20/23 11/25/[address] [address] 08/10/23 Adria Cisneros MD [address] [place] [address]87 Rheumatology 11/09/23 Adria Cisneros MD [address] [place] [address] 16913 Rheumatology 11/09/23 Adria Cisneros MD [address] [place] [address] 37858 Assigned Rheumatology Provider 02/26/24 Margaret Reyes [facility] Assigned MTM Pharmacist 06/28/24 Adria Cisneros MD [address] [place] [address] 71142 Rheumatology 08/01/24 documented as of this encounter
--- OUTSIDE RECORDS SUMMARY | 2025-02-02 18:01 | XMS_ITS | Encounter Summary ---
Author Organization [place] Address [address] [place] [address] 88401 Care Team Providers Care Call Center Associate Name Role Phone ZuleymaBola [facility], [facility] Unavailable +[phone] Shaan Ramirez MD Unavailable [phone] Luis Ambriz MD Primary Care Provider [phone] MD Unavailable [phone] Nini Patten MD Unavailable [phone] Nini Patten MD Unavailable [phone] Margaret Reyes [facility] Unavailable Unavailable Adria Cisneros MD Unavailable [phone] Adria Cisneros MD Unavailable [phone] Adria Cisneros MD Unavailable [phone] Margaret Reyes [facility] Unavailable Unavailable Adria Cisneros MD Unavailable [phone] Encounter Details Date Type Department Care Team (Late st Contact Info) Description 02/02/[address] [address] Baljinder Friend Social History Tobacco Use [...] Description 02/09/2025 10:00 AM CDT Office Visit [facility] 516 [facility] 9th Fl Clin 9A [place] [address] Shaan Ramirez MD 6 [place] [address] 03/09/2025 2:00 PM CDT Virtual Visit [address] [place] [address] Adria Cisneros MD 515 [facility] 88 [place], [place] 094495 documented as of this encounter Visit Diagnoses Not on filedocumented in this encounter Additional Health Concerns Assessment Noted Time PHQ-9 Depression Total Score: 6 02/03/20 22 9:26 AM CDT documented as of this encounter Care Teams Call Center Associate Relationship Specialty Start Date End Date Luis Ambriz MD [facility] [address] [place] [address] PCP - General Family Medicine 02/16/22 Bola Amor, GRIP WRAPPER, [facility] [address] [place] 180 [place] [address] Assigned Behavioral Health Provider 12/04/21 06/27/24 Shaan Ramirez MD [address] [place] [address] 19832 Assigned Surgical Provider 12/04/[address] MD [facility] [address] [place] [address] Assigned Rheumatology Provider 02/25/22 02/25/24 Nini Patten MD [address] [place] [address] Endocrinology, Diabetes, and Metabolism 08/29/22 Nini Patten MD [address] [place] [address] 11867 Assigned Endocrinology Provider 01/20/23 11/25/24 Margaret Reyes [facility] Pharmacist 08/10/23 Adria Cisneros MD [address] [place] [address] 56981 Rheumatology 11/09/23 Adria Cisneros MD [address] [place] [address] 16310 Rheumatology 11/09/23 Adria Cisneros MD [address] [place] [address] 33867 Assigned Rheumatology Provider 02/26/24 Margaret Reyes [facility] Assigned MTM Pharmacist 06/28/24 Adria Cisneros MD [address] [place] [address] 41153 Rheumatology 08/01/24 documented as of this encounter
--- OUTSIDE RECORDS SUMMARY | 2025-02-02 18:01 | XMS_ITS | Encounter Summary ---
Author Organization [place] Address [address] [place] [address] 7[address]83 Care Team Providers Care Health Care Marketing Specialist Name Role Phone ZuleymaBola [facility], [facility] Unavailable +[phone] Shaan Ramirez MD Unavailable [phone] Luis Ambriz MD Primary Care Provider [phone] MD Unavailable [phone] Nini Patten MD Unavailable [phone] Nini Patten MD Unavailable [phone] Margaret Reyes [facility] Unavailable Unavailable Adria Cisneros MD Unavailable [phone] Adria Cisneros MD Unavailable [phone] Adria Cisneros MD Unavailable [phone] Margaret Reyes [facility] Unavailable Unavailable Adria Cisneros MD Unavailable [phone] Encounter Details Date Type Department Care Team (Late st Contact Info) Description 01/04/2023 [facility] Medical Advice [facility] Endocrinology Clinic [address] [place] [address] Rika Adler CMA Social History [...] Description 02/09/2025 10:00 AM CDT Office Visit [facility] 516 [facility] 9th Fl Clin 9A [place] [address] Shaan Ramirez MD 6 [place] [address] 03/09/2025 2:00 PM CDT Virtual Visit [facility] [address] [place] [address] Adria Cisneros MD 515 [facility] 88 [place], [place] 106605 documented as of this encounter Visit Diagnoses Not on filedocumented in this encounter Additional Health Concerns Assessment Noted Time PHQ-9 Depression Total Score: 4 12/25/19 23 2:25 PM CDT documented as of this encounter Care Teams Health Care Marketing Specialist Relationship Specialty Start Date End Date Luis Ambriz MD [facility] [address] [place] [address] PCP - General Family Medicine 02/16/22 Bola Amor, LICENSED AND CERTIFIED MIDWIFE, [facility] [address] [place] [address] [place] [address] Assigned Behavioral Health Provider 12/04/21 06/27/24 Shaan Ramirez MD [address] [place] [address] 68039 Assigned Surgical Provider 12/04/[address] MD [facility] [address] [place] [address] Assigned Rheumatology Provider 02/25/22 02/25/24 Nini Patten MD [address] [place] [address] Endocrinology, Diabetes, and Metabolism 08/29/22 Nini Patten MD [address] [place] [address]951 Assigned Endocrinology Provider 01/20/23 11/25/24 Margaret Reyes [facility] Pharmacist 08/10/23 Adrai Cisneros MD [address] [place] [address] Rheumatology 11/09/23 Adria Cisneros MD [address] [place] [address] 22406 Rheumatology 11/09/23 Adria Cisneros MD [address] [place] [address] 37070 Assigned Rheumatology Provider 02/26/24 Margaret Reyes [facility] Assigned MTM Pharmacist 06/28/24 Adria Cisneros MD [address] [place] [address]2389 Rheumatology 08/01/24 documented as of this encounter
--- OUTSIDE RECORDS SUMMARY | 2025-02-02 18:01 | XMS_ITS | Encounter Summary ---
Author Organization [place] Address [address] [place] [address] 45681 Care Team Providers Care Fleet Assistant Name Role Phone ZuleymaBola [facility], [facility] Unavailable [phone] Shaan Ramirez MD Unavailable [phone] Luis Ambriz MD Primary Care Provider [phone] MD Unavailable [phone] Nini Patten MD Unavailable [phone] Nini Patten MD Unavailable [phone] Margaret Reyes [facility] Unavailable Unavailable Adria Cisneros MD Unavailable [phone] Adria Cisneros MD Unavailable [phone] Adria Cisneros MD Unavailable [phone] Margaret Reyes [facility] Unavailable Unavailable Adria Cisneros MD Unavailable [phone] Encounter Details Date Type Department Care Team (Late st Contact Info) Description 01/15/2023 [facility] Endocrinology Clinic [address] [address] Nini Patten MD [address] [place] [address] Social History Tobacco Use Types Packs/Day [...] Description 02/09/2025 10:00 AM CDT Office Visit [facility] 516 [facility] 9th Fl Clin 9A [place] [address] Shaan Ramirez MD [address] [place] [address] 091865 03/09/2025 2:00 PM CDT Virtual Visit [facility] [address] [place] [address] Adria Cisneros MD [address] [place] [address] 88 [place], [place] 518885 documented as of this encounter Visit Diagnoses Not on filedocumented in this encounter Additional Health Concerns Assessment Noted Time PHQ-9 Depression Total Score: 4 12/25/19 23 2:25 PM CDT documented as of this encounter Care Teams Fleet Assistant Relationship Specialty Start Date End Date Luis Ambriz MD [facility] [address] [place] [address] PCP - General Family Medicine 02/16/22 Bola Amor, REGULATORY ANALYST, [facility] [address] [facility] 180 [place], [place] [address] Assigned Behavioral Health Provider 12/04/21 06/27/24 Shaan Ramirez MD [address] [place] [address] 71076 Assigned Surgical Provider 12/04/[address] MD [facility] [address] [place] [address] Assigned Rheumatology Provider 02/25/22 02/25/24 Nini Patten MD [address] [place] [address] 156375 Endocrinology, Diabetes, and Metabolism 08/29/22 Nini Patten MD [address] [place] [address]646 Assigned Endocrinology Provider 01/20/23 11/25/24 Margaret Reyes [facility] Pharmacist 08/10/23 Adria Cisneros MD [address] [place] [address] 48560 Rheumatology 11/09/23 Adria Cisneros MD [address] [place] [address] 09770 Rheumatology 11/09/23 Adria Cisneros MD [address] [place] [address]4082 Assigned Rheumatology Provider 02/26/24 Margaret Reyes [facility] Assigned MTM Pharmacist 06/28/24 Adria Cisneros MD [address] [place] [address] 43108 Rheumatology 08/01/24 documented as of this encounter
--- OUTSIDE RECORDS SUMMARY | 2025-02-02 18:01 | XMS_ITS | Encounter Summary ---
Author Organization [place] Address [address] [place] [address] 17882 Care Team Providers Care Diesel Technician Mechanic Name Role Phone Bola Amor [facility], [facility] Unavailable [phone] Shaan Ramirez MD Unavailable [phone] Luis Ambriz MD Primary Care Provider [phone] MD Unavailable [phone] Nini Patten MD Unavailable [phone] Nini Patten MD Unavailable [phone] Margaret Reyes [facility] Unavailable Unavailable Adria Cisneros MD Unavailable [phone] Adria Cisneros MD Unavailable [phone] Adria Cisneros MD Unavailable [phone] Margaret Reyes [facility] Unavailable Unavailable Adria Cisneros MD Unavailable [phone] Encounter Details Date Type Department Care Team (Late st Contact Info) Description 12/11/2023 [facility] Medical Advice [facility] Rheumatology Clinic [address] [address] Margaret Reyes, [facility] Social History Tobacco Use Types Packs/Day Years Used Date Smoking Tobacco: Never Passive Smoke Exposure: Never Smokeless Tobacco: Never Alcohol Use Standard Drinks/Week Comments Yes 0 (1 standard drink = 0.6 oz pur e alcohol) Occ. PHQ-2 Answer Date Recorded PHQ-2 Score 0 11/09/2023 Adolescent Education Answer Date Record ed Getting School Help Needed Not on file 09/22 /2023 Comments Unknown Sex and Gender Information Value [...] Description 02/09/2025 10:00 AM CDT Office Visit [facility] Eye Clinic [address] 9th Fl Clin 9A [place] [address] Shaan Ramirez MD [address] [place] [address] 368285 03/09/2025 2:00 PM CDT Virtual Visit [facility] [address] [place] [address] [place] [address] Adria Cisneros MD [address] [place] [address] 88 [place], [place] 62[address] documented as of this encounter Visit Diagnoses Not on filedocumented in this encounter Additional Health Concerns Assessment Noted Time PHQ-9 Depression Total Score: 4 12/25/19 23 2:25 PM CDT documented as of this encounter Care Teams Diesel Technician Mechanic Relationship Specialty Start Date End Date Luis Ambriz MD [facility] [address] [place] [address] PCP - General Family Medicine 02/16/22 Bola Amor, KITCHEN AND BATH DESIGNER, [facility] [address] [facility] 180 [place] [address] Assigned Behavioral Health Provider 12/04/21 06/27/24 Shaan Ramirez MD [address] [place] [address] Assigned Surgical Provider 12/04/[address] MD [facility] [address] [place] [address] Assigned Rheumatology Provider 02/25/22 02/25/24 Nini Patten MD [address] [place] [address] Endocrinology, Diabetes, and Metabolism 08/29/22 Nini Patten MD [address] [place] [address] 67297 Assigned Endocrinology Provider 01/20/23 11/25/24 Margaret Reyes [facility] Pharmacist 08/10/23 Adria Cisneros MD [address] [place] [address]8416 Rheumatology 11/09/23 Adria Cisneros MD [address] [place] [address] 20619 Rheumatology 11/09/23 Adria Cisneros MD [address] [place] [address] 91326 Assigned Rheumatology Provider 02/26/24 Margaret Reyes [facility] Assigned MTM Pharmacist 06/28/24 Adria Cisneros MD [address] [place] [address] 76563 Rheumatology 08/01/24 documented as of this encounter
--- OUTSIDE RECORDS SUMMARY | 2025-02-02 18:01 | XMS_ITS | Encounter Summary ---
Author Organization [place] Address [address] [place] [address] 13258 Care Team Providers Care Medical Biller Name Role Phone ZuleymaChristalromancamila Naranjo [facility], [facility][NOTE 3] Unavailable [phone] Shaan Ramirez MD Unavailable [phone] Luis Ambriz MD Primary Care Provider [phone] MD Unavailable [phone] Nini Patten MD Unavailable [phone] Nini Patten MD Unavailable [phone] Margaret Reyes [facility] Unavailable Unavailable Adria Cisneros MD Unavailable [phone] Adria Cisneros MD Unavailable [phone] Adria Cisneros MD Unavailable [phone] Margaret Reyes [facility] Unavailable Unavailable Adria Cisneros MD Unavailable [phone] Reason for Visit * Reason Onset Date Comments Vision Changes Ou 12/21/2021 Encounter Details Date Type Department Care Team (Late st Contact Info) Description 12/21/2021 [facility] Medical [facility] Eye [address] [place] Clin [address] [place] [address] Shaan Ramirez MD [address] [place] [address] Vision Changes Ou Social History Tobacco [...] Description 02/09/2025 10:00 AM CDT Office Visit [facility] Eye [address] 9[facility] Clin [address] [place] [address] Shaan Ramirez MD [address] [place] [address] 03/09/2025 2:00 PM CDT Virtual Visit [address] [place] [address] Adria Cisneros MD [address] [place] [address] 256715 documented as of this encounter Visit Diagnoses Diagnosis Intermediate uveitis of both eyes documented in this encounter Additional Health Concerns Assessment Noted Time PHQ-9 Depression Total Score: 10 022 12:04 PM CDT documented as of this encounter Care Teams Medical Biller Relationship Specialty Start Date End Date Luis Ambriz MD [facility] [address], [place] [address] PCP - General Family Medicine 02/16/22 Bola Amor, [facility], [facility][NOTE 3] [address] [place] [address] Assigned Behavioral Health Provider 12/04/21 06/27/24 Shaan Ramirez MD [address] [place] [address] 16457 Assigned Surgical Provider 12/04/[address] [facility] [address] [place], [place] [address] Assigned Rheumatology Provider 02/25/22 02/25/24 Nini Patten MD [address] [place] [address]150 Endocrinology, Diabetes, and Metabolism 08/29/22 Nini Patten MD [address] [place] [address] 30815 Assigned Endocrinology Provider 01/20/23 11/25/24 Margaret Reyes, [facility] Pharmacist 08/10/23 Adria Cisneros MD [address] [place] [address] 88394 Rheumatology 11/09/23 Adria Cisneros MD [address] [place] [address] 31074 Rheumatology 11/09/23 Adria Cisneros MD [address] [place] [address]57[address] Assigned Rheumatology Provider 02/26/24 Margaret Reyes, [facility] Assigned MTM Pharmacist 06/28/24 Adria Cisneros MD [address] [place] [address] 96643 Rheumatology 08/01/24 documented as of this encounter
--- OUTSIDE RECORDS SUMMARY | 2025-02-02 18:01 | XMS_ITS | Encounter Summary ---
Author Organization [place] Address [address] [place] [address] Care Team Providers Care Stationary Plant Operators Name Role Phone ZuleymaBola [facility], [facility] Unavailable +[phone] Shaan Ramirez MD Unavailable [phone] Luis Ambriz MD Primary Care Provider [phone] MD Unavailable [phone] Nini Patten MD Unavailable [phone] Nini Patten MD Unavailable +[phone] Margaret Reyes [facility] Unavailable Unavailable Adria Cisneros MD Unavailable +[phone] Adria Cisneros MD Unavailable [phone] Adria Cisneros MD Unavailable +[phone] Margaret Reyes [facility] Unavailable Unavailable Adria Cisneros MD Unavailable [phone] Encounter Details Date Type Department Care Team (Late st Contact Info) Description 04/10/2023 [facility] Endocrinology Clinic [address] [address] Nini Patten MD [address] [place] [address] Social History Tobacco Use Types Packs/Day [...] Description 02/09/2025 10:00 AM CDT Office Visit [facility] [place] 727896 [facility] 9th Fl Clin 9A [place] [address] Shaan Ramirez MD [address] [place] [address] 643465 03/09/2025 2:00 PM CDT Virtual Visit [facility] [address] [place] [address] Adria Cisneros MD 515 [facility] 88 [place], [place] 899415 documented as of this encounter Visit Diagnoses Not on filedocumented in this encounter Additional Health Concerns Assessment Noted Time PHQ-9 Depression Total Score: 4 12/25/19 23 2:25 PM CDT documented as of this encounter Care Teams Stationary Plant Operators Relationship Specialty Start Date End Date Luis Ambriz MD [facility] [address] [place] [address] PCP - General Family Medicine 02/16/22 Bola Amor, CHIEF JUVENILE PROBATION OFFICER, [facility] [address] [facility] 180 [place], [place] 981735 Assigned Behavioral Health Provider 12/04/21 06/27/24 Shaan Ramirez MD [address] [place] [address] Assigned Surgical Provider 12/04/[address] MD [facility] [address] [place] [address] Assigned Rheumatology Provider 02/25/22 02/25/24 Nini Patten MD [address] [place] [address] 471265 Endocrinology, Diabetes, and Metabolism 08/29/22 Nini Patten MD [address] [place] [address] 18769 Assigned Endocrinology Provider 01/20/23 11/25/24 Margaret Reyes [facility] Pharmacist 08/10/23 Adria Cisneros MD [address] [place] [address] Rheumatology 11/09/23 Adria Cisneros MD [address] [place] [address] 00099 Rheumatology 11/09/23 Adria Cisneros MD [address] [place] [address] Assigned Rheumatology Provider 02/26/24 Margaret Reyes [facility] Assigned MTM Pharmacist 06/28/24 Adria Cisneros MD [address] [place] [address] 426985 Rheumatology 08/01/24 documented as of this encounter
--- OUTSIDE RECORDS SUMMARY | 2025-02-02 18:01 | XMS_ITS | Encounter Summary ---
Author Organization [place] Address [address] [place] [address] Care Team Providers Care Patient Clerical Assistant Name Role Phone ZuleymaBola [facility], [facility] Unavailable +[phone] Shaan Ramirez MD Unavailable +[phone] Luis Ambriz MD Primary Care Provider [phone] MD Unavailable [phone] Nini Patten MD Unavailable [phone] Nini Patten MD Unavailable +[phone] Margaret Reyes [facility] Unavailable Unavailable Adria Cisneros MD Unavailable [phone] Adria Cisneros MD Unavailable [phone] Adria Cisneros MD Unavailable [phone] Margaret Reyes [facility] Unavailable Unavailable Adria Cisneros MD Unavailable +[phone] Encounter Details Date Type Department Care Team (Late st Contact Info) Description 05/14/2023 [facility] [address] [address] Baljinder Friend Social History Tobacco Use Types [...] Description 02/09/2025 10:00 AM CDT Office Visit [facility] 516 [facility] 9th Fl Clin 9A [place] [address] Shaan Ramirez MD [address] [place] [address] [phone] 03/09/2025 2:00 PM CDT Virtual Visit [place] [address] [facility] [place] [address] Adria Cisneros MD [address] [place] [address] 88 [place], [place] 234725 documented as of this encounter Visit Diagnoses Not on filedocumented in this encounter Additional Health Concerns Assessment Noted Time PHQ-9 Depression Total Score: 4 12/25/19 23 2:25 PM CDT documented as of this encounter Care Teams Patient Clerical Assistant Relationship Specialty Start Date End Date Luis Ambriz MD [facility] [address] [place] [address] PCP - General Family Medicine 02/16/22 Bola Amor, BOATBUILDER SUPERVISOR, [facility] [address] [place] [address] [place], [place] 388125 Assigned Behavioral Health Provider 12/04/21 06/27/24 Shaan Ramirez MD [address] [place] [address] [phone] Assigned Surgical Provider 12/04/[address] MD [facility] [address] [place] [address] Assigned Rheumatology Provider 02/25/22 02/25/24 Nini Patten MD [address] [place] [address] Endocrinology, Diabetes, and Metabolism 08/29/22 Nini Patten MD [address] [place] [address] Assigned Endocrinology Provider 01/20/23 11/25/24 Margaret Reyes [facility] Pharmacist 08/10/23 Adria Cisneros MD [address] [place] [address] 20334 Rheumatology 11/09/23 Adria Cisneros MD [address] [place] [address] 09176 Rheumatology 11/09/23 Adria Cisneros MD [address] [place] [address]8866 Assigned Rheumatology Provider 02/26/24 Margaret Reyes [facility] Assigned MTM Pharmacist 06/28/24 Adria Cisneros MD [address] [place] [address] 62922 Rheumatology 08/01/24 documented as of this encounter
--- OUTSIDE RECORDS SUMMARY | 2025-02-02 18:01 | XMS_ITS | Encounter Summary ---
Author Organization [place] Address [address] [place] [address] Care Team Providers Care Braille Transcriber Name Role Phone ZuleymaBola [facility], [facility] Unavailable +[phone] Shaan Ramirez MD Unavailable [phone] Luis Ambriz MD Primary Care Provider [phone] Nini Patten MD Unavailable +[phone] Nini Patten MD Unavailable +[phone] Margaret Reyes [facility] Unavailable Unavailable Adria Cisneros MD Unavailable [phone] Adria Cisneros MD Unavailable [phone] Adria Cisneros MD Unavailable [phone] Margaret Reyes [facility] Unavailable Unavailable Adria Cisneros MD Unavailable [phone] Encounter Details Date Type Department Care Team (Late st Contact Info) Description 05/14/2024 [facility] Advice [facility] Rheumatology Clinic [address] [address] Margaret Reyes, [facility] Social History Tobacco Use Types Packs/Day [...] Description 02/09/2025 10:00 AM CDT Office Visit [facility] Emergency Department 516 [facility] 9th Fl Clin 9A [place] [address] Shaan Ramirez MD [address] [place] [address] 725275 03/09/2025 2:00 PM CDT Virtual Visit [place] [address] [facility] [place] [address] Adria Cisneros MD [address] [place] [address] 88 [place], [place] 278735 documented as of this encounter Visit Diagnoses Not on filedocumented in this encounter Additional Health Concerns Assessment Noted Time PHQ-9 Depression Total Score: 4 12/25/19 23 2:25 PM CDT documented as of this encounter Care Teams Braille Transcriber Relationship Specialty Start Date End Date Luis Ambriz MD [facility] [address] [place] [address] PCP - General Family Medicine 02/16/22 Bola Amor, ELECTRICAL EQUIPMENT TESTER, [facility] [address] [facility] 180 [place], [place] 723[address] Assigned Behavioral Health Provider 12/04/21 06/27/24 Shaan Ramirez MD [address] [place] [address] [phone] Assigned Surgical Provider 12/04/21 Nini Patten MD [address] [place] [address]49 Endocrinology, Diabetes, and Metabolism 08/29/22 Nini Patten MD [address] [place] [address] 13838 Assigned Endocrinology Provider 01/20/23 11/25/24 Margaret Reyes [facility] Pharmacist 08/10/23 Adria Cisneros MD [address] [place] [address]165 Rheumatology 11/09/23 Adria Cisneros MD [address] [place] [address] 22577 Rheumatology 11/09/23 Adria Cisneros MD [address] [place] [address] 647[address] Assigned Rheumatology Provider 02/26/24 Margaret Reyes [facility] Assigned MTM Pharmacist 06/28/24 Adria Cisenros MD [address] [place] [address] 35684 Rheumatology 08/01/24 documented as of this encounter
--- OUTSIDE RECORDS SUMMARY | 2025-02-02 18:01 | XMS_ITS | Encounter Summary ---
Author Organization [place] Address [address] [place] [address] Care Team Providers Care Staff Software Engineer Name Role Phone ZuleymaBola [facility], [facility] Unavailable +[phone] Shaan Ramirez MD Unavailable [phone] Luis Ambriz MD Primary Care Provider [phone] MD Unavailable [phone] Nini Pattne MD Unavailable [phone] Nini Patten MD Unavailable [phone] Margaret Reyes [facility] Unavailable Unavailable Adria Cisneros MD Unavailable [phone] Adria Cisneros MD Unavailable [phone] Adria Cisneros MD Unavailable +[phone] Margaret Reyes [facility] Unavailable Unavailable Adria Cisneros MD Unavailable [phone] Reason for Visit * Reason Onset Date Comments Lab Orders 01/11/2023 Fax to [facility] at [phone] Encounter Details Date Type Department Care Team (Latest Contact Info) Description 01/11/2023 [facility] Natasha Naranjo [facility] Rheumatology Clinic [address] [address] MD Health [facility], Rheumatology [address] [place] [address] Lab Orders (Fax to [facility] at 50... Social History Tobacco Use Types [...] Lab orders have been successfully faxed to [facility] as requested. Confirmed via Rightfax. Amber Orozco CMA 01/15/2023 10:41 AM documented in this encounter Plan of Treatment Upcoming Encounters Date Type Department Care Team ([facility] st Contact Info) Description 02/09/2025 10:00 AM CDT Office Visit [address] 9th [place]j Clin 9A [place] [address] Shaan Ramirez MD [address] [place] [address] 220765 03/09/2025 2:00 PM CDT Virtual Visit [address] [address] Adria Cisneros MD [address] [place] [address] 658955 documented as of this encounter Visit Diagnoses Not on filedocumented in this encounter Additional Health Concerns Assessment Noted Time PHQ-9 Depression Total Score: 4 12/25/19 23 2:25 PM CDT documented as of this encounter Care Teams Staff Software Engineer Relationship Specialty Start Date End Date Luis Ambriz MD [facility] [address] [place] [address] PCP - General Family Medicine 02/16/22 Bola Amor, COAGULATING DRYING SUPERVISOR, [facility] [address] [address] Assigned Behavioral Health Provider 12/04/21 06/27/24 Shaan Ramirez MD [address] [place] [address] Assigned Surgical Provider 12/04/[address] MD [facility] [address] [place] [address] Assigned Rheumatology Provider 02/25/22 02/25/24 Nini Patten MD [address] [place] [address] Endocrinology, Diabetes, and Metabolism 08/29/22 Nini Patten MD [address] [place] [address]18[address] Assigned Endocrinology Provider 01/20/23 11/25/24 Margaret Reyes, [facility] Pharmacist 08/10/23 Adria Cisneros MD [address] [place] [address] 122495 Rheumatology 11/09/23 Adria Cisneros MD [address] [place] [address] 39925 Rheumatology 11/09/23 Adria Cisneros MD [address] [place] [address] Assigned Rheumatology Provider 02/26/24 Margaret Reyes [facility] Assigned MTM Pharmacist 06/28/24 Adria Cisneros MD [address] [place] [address] 33243 Rheumatology 08/01/24 documented as of this encounter
--- OUTSIDE RECORDS SUMMARY | 2025-02-02 18:01 | XMS_ITS | Encounter Summary ---
Author Organization [place] Address [address] [place] [address] Care Team Providers Care Patient Care Manager Name Role Phone ZuleymaChristalromancamila Naranjo [facility] Unavailable +[phone] Shaan Ramirez MD Unavailable [phone] Luis Ambriz MD Primary Care Provider [phone] MD Unavailable [phone] Nini Patten MD Unavailable [phone] Nini Patten MD Unavailable +[phone] Margaret Reyes [facility] Unavailable Unavailable Adria Cisneros MD Unavailable [phone] Adria Cisneros MD Unavailable [phone] Adria Cisneros MD Unavailable [phone] Margaret Reyes [facility] Unavailable Unavailable Adria Cisneros MD Unavailable [phone] Encounter Details Date Type Department Care Team (Late st Contact Info) Description 05/17/2022 [facility] Medical Advice [facility] Rheumatology Clinic [address] [address] MD Health [facility], Rheumatology [address] [place] [address] Social History Tobacco Use Types Packs/Day [...] Description 02/09/2025 10:00 AM CDT Office Visit [facility] Eye [facility] [address] 9th Ia Clin 9A [place] [address] Shaan Ramirez MD [address] [place] [address] 199535 03/09/2025 2:00 PM CDT Virtual Visit [address] [address] Adria Cisneros MD [address] [place] [address] 729275 documented as of this encounter Visit Diagnoses Not on filedocumented in this encounter Additional Health Concerns Assessment Noted Time PHQ-9 Depression Total Score: 4 03/27/20 22 9:21 AM CDT documented as of this encounter Care Teams Patient Care Manager Relationship Specialty Start Date End Date Luis Ambriz MD [facility] [address] [place] [address] PCP - General Family Medicine 02/16/22 Bola Amor, ADVERTISING REPRESENTATIVE, [facility] [address] [address] Assigned Behavioral Health Provider 12/04/21 06/27/24 Shaan Ramirez MD [address] [place] [address]9710 Assigned Surgical Provider 12/04/[address] MD [facility] [address] [place] [address] Assigned Rheumatology Provider 02/25/22 02/25/24 Nini Patten MD [address] [place] [address] Endocrinology, Diabetes, and Metabolism 08/29/22 Nini Patten MD [address] [place] [address] Assigned Endocrinology Provider 01/20/23 11/25/24 Margaret Reyes, [facility] Pharmacist 08/10/23 Adria Cisneros MD [address] [place] [address] 46444 Rheumatology 11/09/23 Adria Cisneros MD [address] [place] [address] 31654 Rheumatology 11/09/23 Adria Cisneros MD [address] [place] [address] 865[address] Assigned Rheumatology Provider 02/26/24 Margaret Reyes [facility] Assigned MTM Pharmacist 06/28/24 Adria Cisneros MD [address] [place] [address]146 Rheumatology 08/01/24 documented as of this encounter
--- OUTSIDE RECORDS SUMMARY | 2025-02-02 18:01 | XMS_ITS | Encounter Summary ---
Author Organization [place] Address [address] [place] [address] Care Team Providers Care Parking Lot Attendant Name Role Phone ZuleymaBola [facility], [facility] Unavailable +[phone] Sahan Ramirez MD Unavailable [phone] Luis Ambriz MD Primary Care Provider [phone] MD Unavailable [phone] Nini Patten MD Unavailable [phone] Nini Patten MD Unavailable [phone] Margaret Reyes [facility] Unavailable Unavailable Adria Cisneros MD Unavailable [phone] Adria Cisneros MD Unavailable [phone] Adria Cisneros MD Unavailable +[phone] Margaret Reyes [facility] Unavailable Unavailable Adria Cisneros MD Unavailable [phone] Encounter Details Date Type Department Care Team (Late st Contact Info) Description 07/06/2023 [facility] Clinic [address] 4th [place] [address] Baljinder Friend Social History Tobacco [...] Description 02/09/2025 10:00 AM CDT Office Visit [facility] Eye [facility] [address] [facility] 9th Fl Clin 9[address] [place] [address] Shaan Ramirez MD 6 [place], [place] 424845 03/09/2025 2:00 PM CDT Virtual Visit [place] [address] [address] [place] [address] Adria Cisneros MD 515 [facility] 88 [place] [address] documented as of this encounter Visit Diagnoses Not on filedocumented in this encounter Additional Health Concerns Assessment Noted Time PHQ-9 Depression Total Score: 4 12/25/19 23 2:25 PM CDT documented as of this encounter Care Teams Parking Lot Attendant Relationship Specialty Start Date End Date Luis Ambriz MD [facility] [address] [place] [address] PCP - General Family Medicine 02/16/22 Bola Amor, KEY ACCOUNT MANAGER, [facility] [address] [place] [address] [place] [address] Assigned Behavioral Health Provider 12/04/21 06/27/24 Shaan Ramirez MD [address] [place] [address]59[address] Assigned Surgical Provider 12/04/[address] MD [facility] [address] [place] [address] Assigned Rheumatology Provider 02/25/22 02/25/24 Nini Patten MD [address] [place] [address] Endocrinology, Diabetes, and Metabolism 08/29/22 Nini Patten MD [address] [place] [address] 990405 Assigned Endocrinology Provider 01/20/23 11/25/24 Margaret Reyes [facility] Pharmacist 08/10/23 Adria Cisneros MD [address] [place] [address]1996 Rheumatology 11/09/23 Adria Cisneros MD [address] [place] [address]18 Rheumatology 11/09/23 Adria Cisneros MD [address] [place] [address]136 Assigned Rheumatology Provider 02/26/24 Margaret Reyes [facility] Assigned MTM Pharmacist 06/28/24 Adria Cisneros MD [address] [place] [address] 23265 Rheumatology 08/01/24 documented as of this encounter
--- OUTSIDE RECORDS SUMMARY | 2025-02-02 18:01 | XMS_ITS | Encounter Summary ---
Author Organization [place] Address [address] [place] [address]17 Care Team Providers Care Sand Analyst Name Role Phone ZuleymaChristalromancamila Naranjo [facility] Unavailable +[phone] Shaan Ramirez MD Unavailable [phone] Luis Ambriz MD Primary Care Provider [phone] MD Unavailable [phone] Nini Patten MD Unavailable [phone] Niin Patten MD Unavailable +[phone] Margaret Reyes [facility] Unavailable Unavailable Adria Cisneros MD Unavailable [phone] Adria Cisneros MD Unavailable [phone] Adria Cisneros MD Unavailable [phone] Margaret Reyes [facility] Unavailable Unavailable Adria Cisneros MD Unavailable [phone] Encounter Details Date Type Department Care Team (Late st Contact Info) Description 09/26/2022 [facility] Medical Advice [facility] Rheumatology Clinic [address] [address] MD Health [facility], Rheumatology [address] [place] [address] Social History Tobacco Use Types Packs/Day [...] Description 02/09/2025 10:00 AM CDT Office Visit [facility] Eye [place] 868996 [facility] 9th Fl Clin 9A [place] [address] Shaan Ramirez MD [address] [place] [address] [phone] 03/09/2025 2:00 PM CDT Virtual Visit [facility] [address] [place] [address] Adria Cisneros MD [address] [place] [address] 88 [place], [place] 443405 documented as of this encounter Visit Diagnoses Not on filedocumented in this encounter Additional Health Concerns Assessment Noted Time PHQ-9 Depression Total Score: 10 023 9:59 AM ARTIST BLACKSMITH documented as of this encounter Care Teams Sand Analyst Relationship Specialty Start Date End Date Luis Ambriz MD [facility] [address] [place] [address] PCP - General Family Medicine 02/16/22 Bola Amor, TRANSITION TEACHER, [facility] [address] [facility] 180 [place], [place] 435895 Assigned Behavioral Health Provider 12/04/21 06/27/24 Shaan Ramirez MD [address] [place] [address] [phone] Assigned Surgical Provider 12/04/[address] MD [facility] [address] [place] [address] Assigned Rheumatology Provider 02/25/22 02/25/24 Nini Patten MD [address] [place] [address]42 Endocrinology, Diabetes, and Metabolism 08/29/22 Nini Patten MD [address] [place] [address] Assigned Endocrinology Provider 01/20/23 11/25/24 Margaret Reyes [facility] Pharmacist 08/10/23 Adria Cisneros MD [address] [place] [address] Rheumatology 11/09/23 Adria Cisneros MD [address] [place] [address] Rheumatology 11/09/23 Adria Cisneros MD [address] [place] [address] Assigned Rheumatology Provider 02/26/24 Margaret Reyes [facility] Assigned MTM Pharmacist 06/28/24 Adria Cisneros MD [address] [place] [address]59[address] Rheumatology 08/01/24 documented as of this encounter
--- OUTSIDE RECORDS SUMMARY | 2025-02-02 18:01 | XMS_ITS | Encounter Summary ---
Author Organization [place] Address [address] [place] [address] Care Team Providers Care Clinical Rehabilitation Specialist Name Role Phone ZuleymaChristalromancamila Naranjo [facility], [facility] Unavailable + [phone] Shaan Ramirez MD Unavailable [phone] Luis Ambriz MD Primary Care Provider [phone] MD Unavailable [phone] Nini Patten MD Unavailable [phone] Nini Patten MD Unavailable [phone] [facility] Unavailable Unavailable Adria Cisneros MD Unavailable [phone] Adria Cisneros MD Unavailable [phone] Adria Cisneros MD Unavailable [phone] [facility] Unavailable Unavailable Adria Cisneros MD Unavailable [phone] Encounter Details Date Type Department Care Team (Late st Contact Info) Description 08/05/2023 External Order Results [facility] [address] [place] [address] Outside, Provider Social History Tobacco Use Types [...] Description 02/09/2025 10:00 AM CDT Office Visit [facility] [address] [facility] [address] Clin [address] [place] [address] Shaan Ramirez MD [address] [place] [address] 03/09/2025 2:00 PM CDT Virtual Visit [address] [place] [phone] Adria Cisneros MD [address] [place] [address] 88 [place], [place] [phone] documented as of this encounter Procedures Procedure Name Priority Date/Time Associated Diagnosis Comments CBC WITH PLATELETS & DIFFERENTIAL Routine 08/05/2023 2:44 PM COMPUTER PROCESSING SCHEDULER ERYTHROCYTE SEDIMENTATION RATE AUTO Routine 08/05/2023 2:44 PM COMPUTER PROCESSING SCHEDULER CRP INFLAMMATION Routine 08/05/2023 2:44 PM COMPUTER PROCESSING SCHEDULER COMPREHENSIVE METABOLIC PANEL Routine 08/05/2023 2:44 PM COMPUTER PROCESSING SCHEDULER documented in this encounter Results * (ABNORMAL) Comprehensive metabolic panel (08/05/2023 2:44 PM COMPUTER PROCESSING SCHEDULER) Sodium (External) 139 135 - 149 mmol/L [...] BLOOD SPECIMEN / Unknown 08/05/2023 2:44 PM COMPUTER PROCESSING SCHEDULER Calli MCKAY PFT - 08/08/2023 10:56 AM COMPUTER PROCESSING SCHEDULER Verified by Hilario Stevenson on 08/08/2023. us Provider Outside LAB - BLOOD ORDERABLES Edited R esult - Final WOODY PFT NON-INTERFACED (ONBASE SCANS) * (ABNORMAL) CRP inflammation (08/05/2023 2:44 PM COMPUTER PROCESSING SCHEDULER) CRP Inflammation (External) <0.5(L) 0.5 - 1.0 mg/dL NON-INTERFACE D (ONBASE SCANS) Blood BLOOD SPECIMEN / Unknown 08/05/2023 2:44 PM COMPUTER PROCESSING SCHEDULER Calli MCKAY PFT - 08/08/2023 10:56 AM COMPUTER PROCESSING SCHEDULER Verified by Hilario Stevenson on 08/08/2023. Provider Outside LAB - BLOOD ORDERABLES Edited R [facility] WOODY PFT NON-INTERFACED (ONBASE SCANS) * Erythrocyte sedimentation rate auto (08/05/2023 2:44 PM COMPUTER PROCESSING SCHEDULER) Pathologist [facility] ESR (External) 7 2 - 20 mm/hr NON-INTERFACED (ONBASE SCANS) Blood BLOOD SPECIMEN / Unknown 08/05/2023 2:44 PM COMPUTER PROCESSING SCHEDULER Narrative LYRICE PFT - 08/08/2023 10:56 AM COMPUTER PROCESSING SCHEDULER Verified by Hilario Stevenson on 08/08/2023. Provider Outside LAB - BLOOD ORDERABLES Edited R [facility] [employer] Performing Organization Address City/[facility] Co de Phone Number WOODY PFT NON-INTERFACED (ONBASE SCANS) * CBC with Platelets & Differential (08/05/2023 2:44 PM COMPUTER PROCESSING SCHEDULER) WBC Count (External) 5.07 4.50 - 11.00 [...] BLOOD SPECIMEN / Unknown 08/05/2023 2:44 PM COMPUTER PROCESSING SCHEDULER Narrative WOODY JOHNSTON - 08/08/2023 10:56 AM COMPUTER PROCESSING SCHEDULER Verified by Hilario Stevenson on 08/08/2023. us Provider Outside LAB - BLOOD ORDERABLES Edited R esult - Final WOODY JOHNSTON NON-INTERFACED (ONBASE SCANS) documented in this encounter Visit Diagnoses Not on filedocumented in this encounter Additional Health Concerns Assessment Noted Time PHQ-9 Depression Total Score: 4 12/25/19 23 2:25 PM CDT documented as of this encounter Care Teams Clinical Rehabilitation Specialist Relationship Specialty Start Date End Date Luis Ambriz MD [facility] [address] [place] [address] PCP - General Family Medicine 02/16/22 Bola Amor, PROFESSIONAL WRESTLER, LADC [address] [facility] [address] [place] [address] Assigned Behavioral Health Provider 12/04/21 06/27/24 Shaan Ramirez MD [address] [place] [address] Assigned Surgical Provider 12/04/[address] MD [facility] [address] [place] [address] Assigned Rheumatology Provider 02/25/22 02/25/24 Nini Patten MD [address] [place] [address] Endocrinology, Diabetes, and Metabolism 08/29/22 Nini Patten MD [address] [place] [address] Assigned Endocrinology Provider 01/20/23 11/25/24 [facility] 08/10/23 Adria Cisneros MD [address] [place] [address] Rheumatology 11/09/23 Adria Cisneros MD [address] [place] [address] Rheumatology 11/09/23 Adria Cisneros MD [address] [place] [address] Assigned Rheumatology Provider 02/26/[address] [facility] Assigned MTM Pharmacist 06/28/24 Adria Cisneros MD [address] [place] [address] Rheumatology 08/01/24 documented as of this encounter
--- OUTSIDE RECORDS SUMMARY | 2025-02-02 18:02 | XMS_ITS | Encounter Summary ---
Author Organization [place] Address [address] [place] [address] Care Team Providers Care Bilingual Recruiter Name Role Phone ZuleymaBola [facility], [facility] Unavailable + [phone] Shaan Ramirez MD Unavailable [phone] Luis Ambriz MD Primary Care Provider [phone] MD Unavailable [phone] Nini Patten MD Unavailable [phone] Nini Patten MD Unavailable [phone] Margaret Reyes [facility] Unavailable Unavailable Adria Cisneros MD Unavailable [phone] Adria Cisneros MD Unavailable [phone] Adria Cisneros MD Unavailable [phone] Margaret Reyes [facility] Unavailable Unavailable Adria Cisneros MD Unavailable [phone] Encounter Details Date Type Department Care Team (Late st Contact Info) Description 12/30/2021 External Order Results [facility] [address] [place] [address] Outside, Provider High risk medication use Social [...] Office Visit [facility] [address] [facility] [address] Clin [address] [place] [address] Shaan Ramirez MD [address] [place] [address] [phone] 03/09/2025 2:00 PM CDT Virtual Visit [address] [place] [address] Adria Cisneros MD [address] [place] [address] [phone] documented as of this encounter Procedures Procedure [...] C antibody (12/30/2021 9:15 AM CDT) Pathologist [facility] Hepatitis C Antibody (External) NEGATIVE NEGATIVE NON-INTERFACE D (ONBASE SCANS) Blood 12/30/2021 9:15 AM CDT Narrative WOODY PFT - 12/30/2021 3:39 PM CDT Verified by Deangelo Carlson on 12/30/2021. us Provider Outside LAB - BLOOD ORDERABLES Edited R esult - Final WOODY JOHNSTON NON-INTERFACED (ONBASE SCANS) * (ABNORMAL) Comprehensive metabolic panel (12/30/2021 9:15 AM CDT) [facility] ALT (External) 35 4 - 35 U/L [...] documented as of this encounter Care Teams Bilingual Recruiter Relationship Specialty Start Date End Date Luis Ambriz MD [facility] [address] [place] [address] PCP - General Family Medicine 02/16/22 Bola Amor, JUNIOR PROGRAMMER ANALYST, [facility] [address] [facility] [address] [place], [place] [phone] Assigned Behavioral Health Provider 12/04/21 06/27/24 Shaan Ramirez MD [address] [place] [address] [phone] Assigned Surgical Provider 12/04/[address] MD [facility] [address] [place] [address] Assigned Rheumatology Provider 02/25/22 02/25/24 Nini Patten MD [address] [place] [address] Endocrinology, Diabetes, and Metabolism 08/29/22 Nini Patten MD [address] [place] [address] Assigned Endocrinology Provider 01/20/23 11/25/24 Margaret Reyes [facility] Pharmacist 08/10/23 Adria Cisneros MD [address] [place] [address] Rheumatology 11/09/23 Adria Cisneros MD [address] [place] [address] Rheumatology 11/09/23 Adria Cisneros MD [address] [place] [address] Assigned Rheumatology Provider 02/26/24 Margaret Reyes [facility] Assigned MTM Pharmacist 06/28/24 Adria Cisneros MD [address] [place] [address] Rheumatology 08/01/24 documented as of this encounter
--- OUTSIDE RECORDS SUMMARY | 2025-02-02 18:02 | XMS_ITS | Clinical Summary ---
Author Organization [employer] [facility] Address [address] [place] [address] Care Team Providers Care Wildlife Control Operator Name Role Phone Lius Ambriz MD Primary Care Provider [phone] Allergies Active Allergy Reactions Criticality Noted Date Comments Doxycycline Nausea Only High 12/13/2023 Hydrocodone Hives,Itching High 05/12/2022 Hydrocodone-Acetaminophen Hives,Itching 015 Lavender Oil Cough Medium 11/28/2014 Glynn Lavender Oil Cough,Other - Descri be In Comment Field 11/29/2021 Medications rosuvastatin (CRESTOR) 10 mg tablet Take 10 mg by mouth once daily. 09/01/19 23 Active folic acid 1 mg tablet Take 1 mg by mouth once daily. 01/10/20 22 Active tofacitinib (Xeljanz) 5 mg tab tablet Take 5 mg by mouth two times daily. Active methotrexate (RHEUMATREX) 2.5 mg tablet Take 12.5 mg by mouth. Take 5 tablets (12.5 mg) by mouth every 7 days 11/09/19 24 Active cholecalciferol (VITAMIN D3) 2,000 unit capsule Take 2,000 units by mouth once daily. 01/20/20 24 Active Ozempic 2 mg/dose (8 mg/3 mL) pen 01/18/20 24 Active clotrimazole (LOTRIMIN) 1 % cream APPLY TOPICALLY TO THE AFFECTED AREA TWICE DAILY FOR 2 WEEKS 07/21/20 24 Active hydrocortisone 2.5 % creamIndications: Intertrigo Apply topically to affected area(s) two times daily. For flares. Can combine with the Clotrimazole cream. 453.6 g 1 07/25/20 24 Active lisdexamfetamine 30 mg capsuleIndication s:Attention deficit hyperactivity disorder (ADHD), combined type Take 1 Capsule (30 mg) by mouth once daily in the morning. 30 Capsule 02/07/20 25 Active lisdexamfetamine (Vyvanse) 30 mg capsuleIndication s:Attention deficit hyperactivity disorder (ADHD), combined type Take 1 Capsule (30 mg) by mouth once daily. 30 Capsule 01/08/20 25 025 Active losartan 100 mg tablet Take 100 mg by mouth once daily. Active busPIRone 15 mg tabletIndications :Mild episode of recurrent major depressive disorder,Anxiety Take 1 Tablet (15 mg) by mouth two times daily. 180 Tablet 1 12/12/19 25 Active venlafaxine (Effexor XR) 75 mg cp24 Extended-Release capsuleIndication s:Mild episode of recurrent major depressive disorder Take 2 Capsules (150 mg) by mouth once daily with a meal. 180 Capsule 3 12/12/19 25 Active hydrOXYzine HCL 25 mg tabletIndications :Generalized anxiety disorder Take one-half to one tablet (12.5-25mg) by mouth up to twice daily as needed for anxiety/ sleep 30 Tablet 01/30/20 25 Active lisdexamfetamine (Vyvanse) 30 mg capsuleIndication s:Attention deficit hyperactivity disorder (ADHD), combined type Take 1 Capsule (30 mg) by mouth once daily. 30 Capsule 12/09/19 25 025 Hospital, Clinic, or Other Facility Administered Medication Ordered Dose Route Frequency Start Date End Date Status triamcinolone acetonide (KENALOG) injection 5 mgIndications:Hidradenitis suppurativa 5 mg IDrm ONE TIME 01/22/2025 01/22/2025 Ended Active Problems Problem Noted Date Diagnosed Date Controlled substance agreeme nt signed, By Yamilka Zelaya, DNP, PRE FABRICATOR, SCALPING MACHINE OPERATOR, psychiatry on 01/21/2024 / Meredith Bedolla LPN 05/13/2024 Overview (05/13/2024): Controlled substance agreement signed 06/09/2021 Overview (06/21/2021): Signed 06-09-2021 Dr. Jennifer Patterson MD Severe episode of recurrent major depressive disorder, without psychotic features PTSD (post-traumatic stress disorder) Attention deficit hyperactiv ity disorder (ADHD), combined type Encounters Date Type Department Care Team Description 01/26/2025 1:30 PM CDT Office Visit [facility] [address] [place] [address] Yamilka Zelaya NP Medication Management (Not sure where she is at emotionally, Was in the ER last night, called police,suicidal thoughts, /Has been off medication x3 days, last two weeks has been off and on/STILLHAVING SUICIDAL THOUGHTS, HAS IMAGES OF BLOOD COMING FROM HER WRIST, OR THOUGHTS OF DYING NATURALLY, VERY WEEPY/Just took medications a little bit ago) 01/26/2025 Travel 01/25/2025 11:13 PM CDT - 01/26/2025 3:54 AM CDT Emergency [facility] [address] [place] [address] Paul Parmar MD Attention deficit hyperactivity disorder (ADHD), combined type (Primary Dx); PTSD (post-traumatic stress disorder) Discharge Disposition: Home Self Care 01/25/2025 Travel 01/22/2025 10:00 AM CDT Office Visit [facility] [address] [address] Domonique Wilcox MD Derm Problem 01/22/2025 Travel 12/11/2024 1:30 PM CDT Office Visit [facility] [address] [place] [address] Yamilka Zelaya NP Follow Up; Medication Management (struggling with pms more-high level anger a couple days prior to period. other meds seem to be helping) 12/11/2024 Travel 12/08/2024 Refill [facility] [address] [place] [address] Yamilka Zelaya NP Refill Request (Lisdexamfetamine) 11/06/2024 11:00 AM CDT Office Visit [facility] [address] [place] [address] Yamilka Zelaya, JA Medication Management (Things are just ahem/Anxiety/panic attack or anxious or stress, discuss medication maybe, more political related/Has a lot of stuff going on son, maybe [place] , having issues with thinking she is a failure, /Intrusive thoughts, SI thoughts no plan) 11/06/2024 Travel from Last 3 Months Immunizations Immunization Administration Dates Next Due COVID-19 vaccine (Moderna 100mcg/0.5mL) PF, MDV 07/20/2021 Influenza RIV4 (Age 18+ Year s) PRESERV FREE 05/26/2022,2019 Influenza, IIV3 (Age 6-35 mos) 06/16/2015 Influenza, IIV3 (Age >=3 years) 04/16/2014 Influenza, IIV4 04/14/2020, 8,08/07/2017,2015 Tdap 06/18/2014,01/01/2014 Family History Medical History Relation [...] 0 (1 standard drink = 0.6 oz pure alcohol) 1 or 2 a month hard lemonade, 01/28/2024 PHQ-2 Answer Date Recorded PHQ-2 TOTAL SCORE 3 01/26/2025 Alcohol Use Answer Date Recorded How often do you have a drink containing alcohol ? 2 01/28/2024 Average Number of Drinks Not on file 024 Frequency of Binge Drinking Not on file 01/05 Interpersonal Safety Answer Date Record ed Are you being hit, kicked, p ushed or yelled at (see row info)? No 01/25/2025 Interpersonal Safety Abuse 12 - 18 Not on file 01/25/2025 Interpersonal Safety Ambulatory Vulnerability No t on file 01/25/2025 Comments No Sex and Gender Information Value Date Recorded Sex Assigned at Female 05/02/2020 12:08 PM CDT Legal Sex Female 12:55 PM ADJUNCT FACULTY FOR MEDICAL TERMINOLOGY Gender Identity Female 05/02/2020 12:08 PM CDT Sexual Orientation Bisexual 05/02/2020 12 :08 PM CDT Travel History Travel Start Travel End [place] 01/13/2025 01/14/2025 [place] 01/12/2025 01/12/2025 [place] 01/09/2025 01/11/2025 Obstetrics History Last Filed Vital Signs Vital Sign Reading Time Taken Comments Blood Pressure 161/92 01/26/2025 1:44 PM CDT Pulse 96 01/26/2025 1:44 PM CDT Temperature 36.7 C (98 F) 01/22/2015 8:22 AM CDT Respiratory Rate - - Oxygen Saturation 97% 01/22/2015 8:22 AM CDT Inhaled Oxygen Concentration - - Weight 114.2 kg (251 lb 12.8 oz) 01/26/2025 1:44 PM CDT Height 167.6 cm (5' 6) 01/25/2025 11:1 9 PM CDT Body Mass Index 40.64 01/25/2025 11:19 PM CDT Plan of Treatment Upcoming Encounters Date Type Department Care Team (Late st Contact Info) Description 03/19/2025 9:30 AM CDT Office Visit [facility] [address] [place] [address] Yamilka Zelaya NP [address] [place] [address] 07/27/2025 10:00 AM ADJUNCT FACULTY FOR MEDICAL TERMINOLOGY Office Visit [facility] [address] [phone] [place] [address] [place] [address] Health Maintenance Due Date Last Done Comments HIV for age 15-65 1992 Hepatitis C screening for age 18-79 1995 Hepatitis B series for 19+ (1 of 3 - 19+ 3-dose series) 1996 Colonoscopy through age 75 2022 Mammogram for age 45-75 2022 Pap test for age 21-65 07/21/2022 9, 07/21/2019, 08/11/2016, Additional history exists BMI (ht and wt on same day) for age 18+ 10/17/2023 10/16/2022, 08/07/2022, 06/30/2019, Additional history exists Tetanus booster 06/18/2024 06/18/2014, 01/01/2014 COVID-19 vaccine series (6 - Moderna risk 2023- season) 2025 07/21/2024, 10/19/2022, 07/20/2021, Additional history exists Influenza Vaccine (Season Ended) 2025 05/26/2022, 04/14/2020, 2019, Additional history exists Depression screening for age 12+ 01/26/2026 01/26/2025, 12/11/2024, 11/06/2024, Additional history exists Lipids for age 45-75 08/07/2027 08/07/2022, 07/14/2021, 06/28/2020 Tdap Completed 06/18/2014, 01/01/2014 Pneumococcal series for age 6-49 Aged Out No longer eligible based on patient's age to complete this topic Procedures Procedure Name Priority Date/Time Associated Diagnosis Comments LC LIPID PANEL Routine 08/07/2022 10:04 AM ADJUNCT FACULTY FOR MEDICAL TERMINOLOGY Other chcf (current) drug therapy JEWEL CORNER BRUSHING MACHINE OPERATOR THIN PREP PAP SCREEN IMAGED Routine 07/21/2019 5:00 PM ADJUNCT FACULTY FOR MEDICAL TERMINOLOGY from Last 3 Months or Most Recently Relevant to Health Maintenance Results * (ABNORMAL) LC LIPID PANEL (08/07/2022 10:04 AM ADJUNCT FACULTY FOR MEDICAL TERMINOLOGY) Cholesterol, Total 215(H) 100 - 199 mg/dL 08/10/2022 4:07 PM ADJUNCT FACULTY FOR MEDICAL TERMINOLOGY [facility] Triglycerides 209(H) 0 - 149 mg/dL 08/10/2022 4:07 PM ADJUNCT FACULTY FOR MEDICAL TERMINOLOGY [facility] ([facility]) HDL Cholesterol 52 >39 mg/dL 4:07 PM [facility] ([facility]) VLDL Cholesterol Nick 37 5 - 40 mg/dL 08/10/2022 4:07 PM [facility] ([facility]) LDL Chol Calc ([facility]) 126(H) 0 - 99 mg/dL 08/10/2022 4:07 PM [facility] ([facility]) Blood BLOOD SPECIMEN / Unknown Butterfly / Unknown 08/07/2022 10:04 AM ADJUNCT FACULTY FOR MEDICAL TERMINOLOGY 08/07/2022 10:07 AM ADJUNCT FACULTY FOR MEDICAL TERMINOLOGY Narrative [facility] ([facility]ET) - 08/10/2022 4:07 PM ADJUNCT FACULTY FOR MEDICAL TERMINOLOGY Performed at: [address] [place] [address] [employer] [address] [place] [id number] Account Services Associate: Ryley Lewis MD, Phone: [phone] us Yamilka Zelaya METAL WINDOW SCREEN ASSEMBLER SEND OUTS Final Re sult [facility] ([facility]) [address] [place] [address], * JEWEL CORNER BRUSHING MACHINE OPERATOR THIN PREP PAP SCREEN IMAGED (07/21/2019 5:00 PM ADJUNCT FACULTY FOR MEDICAL TERMINOLOGY) Case Report Gynecologic Cytology Report Case: [id number] Authorizing Provider: Luis Ambriz MD Collected: 07/21/2019 1700 Ordering Location: [facility] Received: 07/22/2019 1711 First Screen: Mercedes Guillen Specimen: JEWEL CORNER BRUSHING MACHINE OPERATOR ThinPrep Vial Screening, Cervical/Vaginal 08/04/2019 4:35 PM ADJUNCT FACULTY FOR MEDICAL TERMINOLOGY [facility] ENTRAL LABORATORY INTERPRETATION/ RESULT NEGATIVE FOR INTRAEPITHELIAL LESION OR MALIGNANCY (NIL) (none) 08/04/2019 4:35 PM ADJUNCT FACULTY FOR MEDICAL TERMINOLOGY [employer] [facility] ENTRAL LABORATORY at 1635 ADJUNCT FACULTY FOR MEDICAL TERMINOLOGY SPECIMEN ADEQUACY Satisfactory for evaluation Endocervical component present Scant cellularity 08/04/2019 4:35 PM ADJUNCT FACULTY FOR MEDICAL TERMINOLOGY [facility] HPV REQUEST HPV and PAP 08/04/2019 4:35 PM ADJUNCT FACULTY FOR MEDICAL TERMINOLOGY [facility] Date of LMP 04/11/2019 08/04/2019 4:35 PM ADJUNCT FACULTY FOR MEDICAL TERMINOLOGY [facility] Last Pap Date 08/11/2016 08/04/2019 4:35 PM ADJUNCT FACULTY FOR MEDICAL TERMINOLOGY [facility] Last Pap Result NIL 9 4:35 PM ADJUNCT FACULTY FOR MEDICAL TERMINOLOGY [facility] Additional Information 08/04/2019 4:35 PM ADJUNCT FACULTY FOR MEDICAL TERMINOLOGY [facility] Comment: Interpreted at [facility] - [address], [place] [address] Automated Review Successful 08/04/2019 4:35 PM [facility] Comment:Specimen processed s uccessfully by automated mortgage servicing specialist device, ThinPrep Imaging System, [employer] ANCILLARY TESTING JEWEL CORNER BRUSHING MACHINE OPERATOR HPV Ordered, Please see separate report 08/04/2019 4:35 PM ADJUNCT FACULTY FOR MEDICAL TERMINOLOGY [facility] Note The pap test is a screening technique, not a diagnostic procedure. It is used primarily to screen for squamous cancers and precursor lesions. Published studies have shown that it is subject to both false negative and false positive results. The pap test should not be used as the sole means to diagnose or exclude pre-malignant and malignant lesions. 08/04/2019 4:35 PM [facility] Other (Cervical/Vagina l) 07/21/2019 5:00 PM ADJUNCT FACULTY FOR MEDICAL TERMINOLOGY 07/22/2019 5:11 PM ADJUNCT FACULTY FOR MEDICAL TERMINOLOGY us Luis Ambriz MD PATHOLOGY/CYTOLOGY Final Resul t [facility] [address] [place] [address], [place] from Last 3 Months or Most Recently Relevant to Health Maintenance Insurance [facility] Care Teams Wildlife Control Operator Relationship Specialty Start Date End Date Luis Ambriz MD [address] [place] [address] PCP - General Family Practice 05/11/20
--- OUTSIDE RECORDS SUMMARY | 2025-02-02 18:02 | XMS_ITS | Encounter Summary ---
Author Organization [facility] Address [address] [place] [address] Care Team Providers Care Supervisor Filtration Name Role Phone Shaan Ramirez MD Unavailable [phone] Luis Ambriz MD Primary Care Provider [phone] Nini Patten MD Unavailable [phone] Nini Patten MD Unavailable [phone] Margaret Reyes [facility] Unavailable Unavailable Adria Cisneros MD Unavailable [phone] Adria Cisneros MD Unavailable [phone] Adria Cisneros MD Unavailable [phone] Margaret Reyes [facility] Unavailable Unavailable Adria Cisneros MD Unavailable [phone] Encounter Details Date Type Department Care Team (Late st Contact Info) Description 08/19/2024 [facility] Medical Advice [facility] Rheumatology Clinic [address] [address] Adria Cisneros MD [address] [place] [address] Social History Tobacco Use Types Packs/Day [...] Description 02/09/2025 10:00 AM CDT Office Visit [facility] Eye [address] 9th [address] Clin [address] [place] [address] Shaan Ramirez MD [address] [place] [address] 275185 03/09/2025 2:00 PM CDT Virtual Visit [place] [address] [place] [phone] Adria Cisneros MD [address] [place] [address] 312475 documented as of this encounter Visit Diagnoses Not on filedocumented in this encounter Additional Health Concerns Assessment Noted Time PHQ-9 Depression Total Score: 5 08/01/20 24 7:42 AM CERTIFIED NURSES AIDE documented as of this encounter Care Teams Supervisor Filtration Relationship Specialty Start Date End Date Luis Ambriz MD [facility] [address] [place] [address] PCP - General Family Medicine 02/16/22 Shaan Ramirez MD [address] [place] [address] [id number] Assigned Surgical Provider 12/04/21 Nini Patten MD [address] [place] [address] 475515 Endocrinology, Diabetes, and Metabolism 08/29/22 Nini Patten MD [address] [place] [address] Assigned Endocrinology Provider 01/20/23 11/25/24 Margaret Reyes [facility] Pharmacist 08/10/23 Adria Cisneros MD [address] [place] [address] Rheumatology 11/09/23 Adria Cisneros MD [address] [place] [address] Rheumatology 11/09/23 Adria Cisneros MD [address] [place] [address] Assigned Rheumatology Provider 02/26/24 Margaret Reyes [facility] Assigned MTM Pharmacist 06/28/24 Adria Cisneros MD [address] [place] [address] Rheumatology 08/01/24 documented as of this encounter
--- OUTSIDE RECORDS SUMMARY | 2025-02-02 18:02 | XMS_ITS | Encounter Summary ---
Author Organization [facility] Address [address] [place] [address] Care Team Providers Care Mortgage Loan Coordinator Name Role Phone Shaan Ramirez MD Unavailable [phone] Luis Ambriz MD Primary Care Provider [phone] Nini Patten MD Unavailable [phone] Margaret Reyes [facility] Unavailable Unavailable Adria Cisneros MD Unavailable [phone] Adria Cisneros MD Unavailable [phone] Adria Cisneros MD Unavailable [phone] Margaret Reyes [facility] Unavailable Unavailable Adria Cisneros MD Unavailable [phone] Encounter Details Date Type Department Care Team (Late st Contact Info) Description 01/16/2025 [facility] PH[facility]ACY [address] [place] [address] Mecca Vogel Social History Tobacco Use Types Packs/Day Years [...] Description 02/09/2025 10:00 AM CDT Office Visit [facility] Eye [facility] [address] [facility] 9th Fl Clin [address] [place] [address] Shaan Ramirez MD [address] [place] [address] 03/09/2025 2:00 PM CDT Virtual Visit [facility] [address] [place] [address] Adria Cisneros MD [address] [place] [address] documented as of this encounter Visit Diagnoses Not on filedocumented in this encounter Additional Health Concerns Assessment Noted Time PHQ-9 Depression Total Score: 5 08/01/20 24 7:42 AM TECHNICAL EXPERT documented as of this encounter Care Teams Mortgage Loan Coordinator Relationship Specialty Start Date End Date Luis Ambriz MD [facility] [address] [place] [address] PCP - General Family Medicine 02/16/22 Shaan Ramirez MD [address] [place] [address] Assigned Surgical Provider 12/04/21 Nini Patten MD [address] [place] [address] Endocrinology, Diabetes, and Metabolism 08/29/22 Margaret Reyes, [facility] Pharmacist 08/10/23 Adria Cisneros MD [address] [place] [address] Rheumatology 11/09/23 Adria Cisneros MD [address] [place] [address] 16[address] Rheumatology 11/09/23 Adria Cisneros MD [address] [place] [address] 19599 Assigned Rheumatology Provider 02/26/24 Margaret Reyes [facility] Assigned MTM Pharmacist 06/28/24 Adria Cisneros MD [address] [place] [address] 269[address] Rheumatology 08/01/24 documented as of this encounter
--- OUTSIDE RECORDS SUMMARY | 2025-02-02 18:02 | XMS_ITS | Clinical Summary ---
Author Organization [facility] Address [address] [place] [address] Care Team Providers Care Residential Field Manager Name Role Phone Shaan Ramirez MD Unavailable [phone] Luis Ambriz MD Primary Care Provider [phone] Nini Patten MD Unavailable [phone] EricMargaret comer [facility] Unavailable Unavailable Adria Cisneros MD Unavailable [phone] Adria Cisneros MD Unavailable [phone] Adria Cisneros MD Unavailable [phone] EricMargaret comer [facility] Unavailable Unavailable Adria Cisneros MD Unavailable [phone] Allergies Active Allergy Reactions Criticality Noted Date [...] tablet by mouth daily at 2 pm 3 Active Vitamin D3 (VITAMIN D, CHOLECALCIFEROL, ) 25 mcg (1000 units) tablet Take 3 tablets by mouth daily Active lisdexamfetamine (VYVANSE) 30 MG capsule TAKE 1 CAPSULE (30 MG) BY MOUTH ONCE DAILY. EFFECTIVE DATE:12/28/23 Active Multiple Vitamins-Mineral s (MULTIVITAMIN ADULTS PO) Take by mouth. Acti ve losartan-hydroch lorothiazide (HYZAAR) 50-12.5 MG tablet Take 1 tablet by mouth daily. 4 Active Semaglutide, 2 MG/DOSE, (OZEMPIC) 8 MG/3ML pen Every week 4 Active venlafaxine (EFFEXOR XR) 75 MG 24 hr capsule 150 MG daily 4 Active methotrexate 2.5 MG tabletIndication s:Psoriasis,Inte rmediate uveitis of both eyes,Hidradeniti s suppurativa Take 5 tablets (12.5 mg) by mouth every 7 days. 60 tablet 3 4 Active folic acid (FOLVITE) 1 MG tabletIndication s:Psoriasis,Inte rmediate uveitis of both eyes,Hidradeniti s suppurativa Take 1 tablet (1 mg) by mouth daily. 90 tablet 3 4 Active tofacitinib (XELJANZ XR) 11 MG 24 hr tabletIndication s:Hidradenitis suppurativa,Psor iasis,Intermedia te uveitis of both eyes Take 1 tablet (11 mg) by mouth daily. Hold for signs of infection, then seek medical attention. 30 tablet 5 5 Active Active Problems Problem Noted Date Diagnosed [...] Encounters Date Type Department Care Team Description 01/21/2025 1:00 PM CDT Virtual Visit [facility] Rheumatology [facility] [address] [facility] 3rd [place] [address] Adria Cisneros MD Eric, Margaret Naranjo, [facility] Hidradenitis suppurativa (Primary Dx); Psoriasis; Intermediate uveitis of both eyes; Vaccine counseling 01/16/2025 [facility] Medical Advice PH[facility]ACY [address] [place] [phone] Mecca Vogel from Last 3 Months Immunizations Immunization Administration Dates Next Due COVID-19 Monovalent 18+ (Moderna) 07/20/2021 Influenza (IIV3) PF 04/16/2014 Influenza (prior to 2023) 06/16/2015 Influenza Vaccine 18-64 (Flublok) 05/26/2022, Influenza Vaccine >6 months,quad, PF 04/2020,05/16/2018,08/07/2017,2015 TDAP (Adacel,Boostrix) 06/18/2014,01/01/2014 Family History Medical History [...] 106.6 kg (235 lb) 08/01/2024 7:40 AM MARKETING STRATEGY MANAGER Height 167.6 cm (5' 6) 08/01/2024 7:40 AM MARKETING STRATEGY MANAGER Body Mass Index 37.93 08/01/2024 7:40 AM MARKETING STRATEGY MANAGER Plan of Treatment Upcoming Encounters Date Type Department Care Team (Late st Contact Info) Description 02/09/2025 10:00 AM CDT Office Visit [facility] Eye [address] [facility] [address] [place] [address] Shaan Ramirez MD [address] [place] [address] 03/09/2025 2:00 PM CDT Virtual Visit [address] [place] [address] Adria Cisneros MD [address] [place] [address] Health Maintenance Due Date Last Done Comments A1C 1977 ADVANCE CARE PLANNING 1977 ANNUAL REVIEW OF HM ORDERS 1977 CT COLONOGRAPHY 1977 DEPRESSION ACTION PLAN 1977 DIABETIC FOOT EXAM 1977 FIT 1977 FLEX SIG 1977 MAMMO SCREENING 1977 MENTAL HEALTH TX PLAN 1977 sDNA (Cologuard) 1977 YEARLY PREVENTIVE VISIT 1980 COLONOSCOPY 1987 COLORECTAL CANCER SCREENING 1987 HEPATITIS B VACCINE (1 of 3 - 19+ 3-dose series) 1996 PAP 07/21/2022 07/21/2019 MICROALBUMIN 02/03/2024 02/02/2023 DTAP/TDAP/TD VACCINE (3 - Td or Tdap) 06/18/2024 06/18/2014, 01/01/2014 ZOSTER VACCINE (2 of 2) 09/15/2024 07/21/2024 BMP 01/13/2025 01/14/2024, 07/08, 02/02/2023, Additional history exists COVID-19 VACCINE (6 - Moderna risk ) 01/19/2025 07/21/2024, 10/19/2022, 07/20/2021, Additional history exists PHQ-9 01/30/2025 08/01/2024, 052 09/2022, 10/30/2022, Additional history exists LIPID 05/17/2025 05/17/2024, 01/14/2024 EYE EXAM 10/06/2025 10/06/2024, 10/2024, 06/02/2024, Additional history exists HIV SCREENING Completed 12/30/2021 HEPATITIS C SCREENING Completed 01/14/2024, 022 PNEUMOCOCCAL VACCINE: PEDIATRICS (0 to 5 YEARS) AND AT-RISK PATIENTS (6 to 49 YEARS) Completed 04/24/2024 INFLUENZA VACCINE Completed 07/21/2024, , 04/14/2020, Additional history exists HPV VACCINE Aged Out No longer eligi ble based on patient's age to complete this topic MENINGITIS VACCINE Aged Out No longer eligible based on patient's age to complete this topic Procedures Procedure Name Priority Date/Time Associated Diagnosis Comments LIPID REFLEX TO DIRECT LDL PANEL Routine [...] Recently Relevant to Health Maintenance Results * Lipid panel reflex to direct LDL [...] 219 mg/dL Very High: >= 220 mg/dL us Adria Cisneros MD LAB - BLOOD ORDERABLES Maisha ibarra Result [facility] [place] [facility] [address] [facility], Room [address] [place] [address], [facility] * Hepatitis C antibody (01/14/2024 11:14 AM CDT) Pathologist [facility] Hepatitis C Antibody Nonreactive Nonreactive 01/15/2024 9:38 AM CDT [facility] Comment:A nonreactive screen ing test result [...] AM CDT 01/14/2024 11:14 AM CDT us Adria Cisneros MD LAB - BLOOD ORDERABLES Maisha l Result LABORATORY [facility] Core Lab [address] [facility], Room [address] [place], [place] [phone] * (ABNORMAL) Comprehensive metabolic panel (01/14/2024 11:14 AM CDT) [facility] Sodium 137 135 - 145 mmol/L 01/14/2024 11:39 AM CDT [facility] - CORE LAB Comment:Reference intervals for this test were updated on 05/01/2023 to more accurately reflect our healthy population. There may be differences in the flagging of prior results with similar values performed with this method. Interpretation of those prior results can be made in the context of the updated reference intervals. Potassium 4.3 3.4 - 5.3 mmol/L 01/14/2024 11:39 AM CDT [facility] - CORE LAB Carbon Dioxide (CO2) 22 22 - 29 mmol/L 01/14/2024 11:39 AM CDT [facility] - CORE LAB Anion Gap 11 7 - 15 mmol/L 01/14/2024 11:39 AM CDT [facility] - CORE LAB Urea Nitrogen 10.4 6.0 - 20.0 mg/dL 01/14/2024 11:39 AM T [facility] - CORE LAB Creatinine 0.80 0.51 - 0.95 mg/dL 01/14/2024 11:39 AM CDT [facility] - [facility]ORE LAB GFR Estimate >90 >60 mL/min/1. 73m2 01/14/2024 11:39 AM CDT [facility] - [facility]ORE LAB Calcium 9.6 8.6 - 10.0 mg/dL 01/14/2024 11:39 AM CDT [facility] - [facility]ORE LAB Chloride 104 98 - 107 mmol/L 01/14/2024 11:39 AM CDT [facility] - [facility] Glucose 99 70 - 99 mg/dL 01/14/2024 11:39 AM CDT [facility] - [facility]ORE [facility] Alkaline Phosphatase 66 40 - 150 U/L 01/14/2024 11:39 AM CDT [facility] - [facility]ORE [facility] AST 33 0 - 45 U/L 01/14/2024 11:39 AM CDT [facility] - [facility]ORE [facility] Comment:Reference intervals for this test were updated on 01/15/2023 to more accurately reflect our healthy population. There may be differences in the flagging of prior results with similar values performed with this method. Interpretation of those prior results can be made in the context of the updated reference intervals. ALT 45 0 - 50 U/L 01/14/2024 11:39 AM CDT [facility] - CORE LAB Comment:Reference intervals for [...] - 8.3 g/dL 01/14/2024 11:39 AM CDT [facility] - [facility]ORE [facility] Albumin 4.2 3.5 - 5.2 g/dL 01/14/2024 11:39 AM CDT [facility] - [facility]ORE [facility] Bilirubin Total 1.3(H) <=1.2 mg/dL 01/14/2024 11:39 AM CDT [facility] - [facility]ORE LAB Patient Fasting > 8hrs? No 01/14/2024 11:39 AM CDT [facility] - [facility]ORE LAB Blood STRUCTURE OF LEFT HAND / Unknown Venipuncture / Unknown 01/14/2024 11:14 AM CDT 01/14/2024 11:14 AM CDT us Shaan Ramirez MD LAB - BLOOD ORDERABLES Final Result [facility] - CORE LAB [facility] [address] [place] [address] 1st [place] [address] * Albumin Random Urine Quantitative with Creat [...] control, and institution of therapy with an lhcelviqvae-qhrriqgauw-whtsqv (ROBERTO) inhibitor (if the patient can tolerate it). Urine MID-STREAM URINE SPECIMEN / Unknown Non-blood Collection / Unknown 02/02/2023 11:59 AM CDT 02/02/2023 11:59 AM CDT us Nini Patten MD LAB - URINE ORDERABLES Final Result [facility] [place] [facility] [address] [facility], Room [address] [place] [address], [facility] [phone] * HIV Antigen Antibody Combo (12/30/2021 9:15 AM CDT) HIV 1&2 Antibody (External) NEGATIVE NEGATIVE NON-INTERFACE D (ONBASE SCANS) Blood 12/30/2021 9:15 AM CDT Narrative [facility] - 01/06/2022 1:23 PM CDT Verified by Chetan Puga on 01/06/2022. us Provider Outside LAB - BLOOD ORDERABLES Edited R esult - Final [facility] NON-INTERFACED (ONBASE SCANS) * EYE EXAM - HIM SCAN (11/28/2021 12:00 AM CDT) 11/28/2021 us Provider Outside OTHER Final Result from Last 3 Months or Most Recently Relevant to Health Maintenance Insurance [facility] COMMERCIAL [facility] COMMERCIAL [facility] * Guarantor: Amelia Sr Account Type Relation to Patient Date of Phone Billing Address Medication Therapy Self [address] [place] [address] [employer] Care Teams Residential Field Manager Relationship Specialty Start Date End Date Luis Ambriz MD [facility] [address] [place] [address] PCP - General Family Medicine 02/16/22 Shaan Ramirez MD [address] [place] [address] 67[address] Assigned Surgical Provider 12/04/21 Nini Patten MD [address] [place] [address]10 Endocrinology, Diabetes, and Metabolism 08/29/22 Margaret Reyes [facility] Pharmacist 08/10/23 Adria Cisneros MD [address] [place] [address]64 Rheumatology 11/09/23 Adria Cisneros MD [address] [place] [address]53 Rheumatology 11/09/23 Adria Cisneros MD [address] [place] [address] 29310 Assigned Rheumatology Provider 02/26/24 Margaret Reyes [facility] Assigned MTM Pharmacist 06/28/24 Adria Cisneros MD [address] [place] [address] 866155 Rheumatology 08/01/24
--- OUTSIDE RECORDS SUMMARY | 2025-02-02 18:02 | XMS_ITS | Encounter Summary ---
Author Organization [facility] Address [address] [place] [address] Care Team Providers Care Dockmaster Name Role Phone ZuleymaBola [facility], [facility] Unavailable [phone] Shaan Ramirez MD Unavailable [phone] Luis Ambriz MD Primary Care Provider [phone] MD Unavailable [phone] Nini Patten MD Unavailable [phone] Nini Patten MD Unavailable [phone] Margaret Reyes [facility] Unavailable Unavailable Adria Cisneros MD Unavailable [phone] Adria Cisneros MD Unavailable [phone] Adria Cisneros MD Unavailable [phone] Margaret Reyes [facility] Unavailable Unavailable Adria Cisneros MD Unavailable [phone] Encounter Details Date Type Department Care Team (Late st Contact Info) Description 12/22/[address] [address] Baljinder Friend Social History Tobacco [...] Description 02/09/2025 10:00 AM CDT Office Visit [facility] Eye [facility] [address] [facility] 9th Fl Clin [address] [place] [address] Shaan Ramirez MD [address] [place] [address] 876505 03/09/2025 2:00 PM CDT Virtual Visit [facility] [address] [place] [address] Adria Cisneros MD [address] [facility] [address] [place], [place] [phone] documented as of this encounter Visit Diagnoses Not on filedocumented in this encounter Additional Health Concerns Assessment Noted Time PHQ-9 Depression Total Score: 10 022 12:04 PM CDT documented as of this encounter Care Teams Dockmaster Relationship Specialty Start Date End Date Luis Ambriz MD [facility] [address] [place] [address] PCP - General Family Medicine 02/16/22 Bola Amor LMFT, [facility] [address] [facility] [address] [place] [address] Assigned Behavioral Health Provider 12/04/21 06/27/24 Shaan Ramirez MD [address] [place] [address] Assigned Surgical Provider 12/04/[address] MD [facility] [address] [place] [address] Assigned Rheumatology Provider 02/25/22 02/25/24 Nini Patten MD [address] [place] [address] Endocrinology, Diabetes, and Metabolism 08/29/22 Nini Patten MD [address] [place] [address] 31956 Assigned Endocrinology Provider 01/20/23 11/25/24 Margaret Reyes [facility] Pharmacist 08/10/23 Adria Cisneros MD [address] [place] [address] Rheumatology 11/09/23 Adria Cisneros MD [address] [place] [address] 24181 Rheumatology 11/09/23 Adria Cisneros MD [address] [place] [address] Assigned Rheumatology Provider 02/26/24 Margaret Reyes [facility] Assigned MTM Pharmacist 06/28/24 Adria Cisneros MD [address] [place] [address] Rheumatology 08/01/24 documented as of this encounter
--- OUTSIDE RECORDS SUMMARY | 2025-02-02 18:02 | XMS_ITS | Encounter Summary ---
Author Organization [facility] Address [address] [place] [address] Care Team Providers Care Electric Range Servicer Name Role Phone Shaan Ramirez MD Unavailable [phone] Luis Ambriz MD Primary Care Provider [phone] Nini Patten MD Unavailable [phone] Nini Patten MD Unavailable [phone] Margaret Reyes [facility] Unavailable Unavailable Adria Cisneros MD Unavailable [phone] Adria Cisneros MD Unavailable [phone] Adria Cisneros MD Unavailable [phone] Margaret Reyes [facility] Unavailable Unavailable Adria Cisneros MD Unavailable [phone] Encounter Details Date Type Department Care Team (Late st Contact Info) Description 10/01/2024 [facility] Medical Advice [facility] [address] [place] [address] [facility] Social History Tobacco Use Types Packs/Day Years [...] Description 02/09/2025 10:00 AM CDT Office Visit [facility] Eye [facility] [address] [facility] 9th Fl Clin [address] [place] [address] Shaan Ramirez MD [address] [place] [address] 03/09/2025 2:00 PM CDT Virtual Visit [place] [address] [place] [address] Adria Cisneros MD [address] [place] [address] documented as of this encounter Visit Diagnoses Not on filedocumented in this encounter Additional Health Concerns Assessment Noted Time PHQ-9 Depression Total Score: 5 08/01/20 24 7:42 AM BUSINESS DATA ANALYST documented as of this encounter Care Teams Electric Range Servicer Relationship Specialty Start Date End Date Luis Ambriz MD [facility] [address] [place] [address] PCP - General Family Medicine 02/16/22 Shaan Ramirez MD [address] [place] [address] Assigned Surgical Provider 12/04/21 Nini Patten MD [address] [place] [address] Endocrinology, Diabetes, and Metabolism 08/29/22 Nini Patten MD [address] [place] [address] Assigned Endocrinology Provider 01/20/23 11/25/24 Margaret Reyes [facility] Pharmacist 08/10/23 Adria Cisneros MD [address] [place] [address] Rheumatology 11/09/23 Adria Cisneros MD [address] [place] [address] Rheumatology 11/09/23 Adria Cisneros MD [address] [place] [address] Assigned Rheumatology Provider 02/26/24 Margaret Reyes [facility] Assigned MTM Pharmacist 06/28/24 Adria Cisneros MD [address] [place] [address] Rheumatology 08/01/24 documented as of this encounter
--- OUTSIDE RECORDS SUMMARY | 2025-02-02 18:02 | XMS_ITS | Encounter Summary ---
Author Organization [place] Address [address] [place] [address] Care Team Providers Care Pipe Smoking Machine Offbearer Name Role Phone Shaan Ramirez MD Unavailable [phone] Luis Ambriz MD Primary Care Provider [phone] Nini Patten MD Unavailable [phone] Nini Patten MD Unavailable +[phone] Margaret Reyes [facility] Unavailable Unavailable Adria Cisneros MD Unavailable [phone] Adria Cisneros MD Unavailable [phone] Adria Cisneros MD Unavailable [phone] Margaret Reyes [facility] Unavailable Unavailable Adria Cisneros MD Unavailable [phone] Encounter Details Date Type Department Care Team (Late st Contact Info) Description 09/17/2024 [facility] Medical Advice [facility] Rheumatology Clinic [address] [address] Adria Cisneros MD [address] [place] [address] Social History Tobacco Use Types Packs/Day [...] 02/09/2025 10:00 AM CDT Office Visit [facility] Eye [address] 9th Hi Clin 9A [place] [address] Shaan Ramirez MD [address] [place] [address] 446555 03/09/2025 2:00 PM CDT Virtual Visit [place] [address] [place] [address] Adria Cisneros MD [address] [place] [address] 132615 documented as of this encounter Visit Diagnoses Not on filedocumented in this encounter Additional Health Concerns Assessment Noted Time PHQ-9 Depression Total Score: 5 08/01/20 24 7:42 AM LATIN AMERICAN STUDIES DIRECTOR documented as of this encounter Care Teams Pipe Smoking Machine Offbearer Relationship Specialty Start Date End Date Luis Ambriz MD [facility] [address] [place] [address] PCP - General Family Medicine 02/16/22 Shaan Ramirez MD [address] [place] [address] [phone] Assigned Surgical Provider 12/04/21 Nini Patten MD [address] [place] [address] 683835 Endocrinology, Diabetes, and Metabolism 08/29/22 Nini Patten MD [address] [place] [address]99 Assigned Endocrinology Provider 01/20/23 11/25/24 Margaret Reyes [facility] Pharmacist 08/10/23 Adria Cisneros MD [address] [place] [address] Rheumatology 11/09/23 Adria Cisneros MD [address] [place] [address] 70268 Rheumatology 11/09/23 Adria Cisneros MD [address] [place] [address] 18076 Assigned Rheumatology Provider 02/26/24 Margaret Reyes [facility] Assigned MTM Pharmacist 06/28/24 Adria Cisneros MD [address] [place] [address] 30740 Rheumatology 08/01/24 documented as of this encounter
--- OUTSIDE RECORDS SUMMARY | 2025-02-02 18:02 | XMS_ITS | Encounter Summary ---
Author Organization [place] Address [address] [place] [address] Care Team Providers Care Land Acquisition Manager Name Role Phone ZuleymaBola [facility], [facility] Unavailable [phone] Shaan Ramirez MD Unavailable [phone] Luis Ambriz MD Primary Care Provider [phone] MD Unavailable [phone] Nini Patten MD Unavailable [phone] Nini Patten MD Unavailable [phone] Margaret Reyes [facility] Unavailable Unavailable Adria Cisneros MD Unavailable [phone] Adria Cisneros MD Unavailable [phone] Adria Cisneros MD Unavailable [phone] Margaret Reyes [facility] Unavailable Unavailable Adria Cisneros MD Unavailable [phone] Encounter Details Date Type Department Care Team (Late st Contact Info) Description 05/02/2023 [facility] Endocrinology Clinic [address] [place] [address] Baljinder Friend Social History Tobacco [...] Description 02/09/2025 10:00 AM CDT Office Visit [facility] Eye [facility] 516 [facility] 9th Fl Clin 9A [place] [address] Shaan Ramirez MD 6 [place], [place] 197645 03/09/2025 2:00 PM CDT Virtual Visit [address] [place] [address] Adria Cisneros MD 515 [facility] 88 [place], [place] 552835 documented as of this encounter Visit Diagnoses Not on filedocumented in this encounter Additional Health Concerns Assessment Noted Time PHQ-9 Depression Total Score: 4 12/25/19 23 2:25 PM CDT documented as of this encounter Care Teams Land Acquisition Manager Relationship Specialty Start Date End Date Luis Ambriz MD [facility] [address] [place] [address] PCP - General Family Medicine 02/16/22 Bola Amor, GRINDER DRESSER, [facility] [address] [place] [address] [place] [address] Assigned Behavioral Health Provider 12/04/21 06/27/24 Shaan Ramirez MD [address] [place] [address] 093845 Assigned Surgical Provider 12/04/[address] MD [facility] [address] [place] [address] Assigned Rheumatology Provider 02/25/22 02/25/24 Nini Patten MD [address] [place] [address] Endocrinology, Diabetes, and Metabolism 08/29/22 Nini Patten MD [address] [place] [address] 978115 Assigned Endocrinology Provider 01/20/23 11/25/24 Margaret Reyes [facility] Pharmacist 08/10/23 Adria Cisneros MD [address] [place] [address] Rheumatology 11/09/23 Adria Cisneros MD [address] [place] [address] 010[address] Rheumatology 11/09/23 Adria Cisneros MD [address] [place] [address] 98641 Assigned Rheumatology Provider 02/26/24 Margaret Reyes [facility] Assigned MTM Pharmacist 06/28/24 Adria Cisneros MD [address] [place] [address] 15550 Rheumatology 08/01/24 documented as of this encounter
--- OUTSIDE RECORDS SUMMARY | 2025-02-03 01:56 | XMS_ITS | Encounter Summary ---
Author Organization [place] Address [address] [place] [address] 0[address]70 Care Team Providers Care Automatic Clipper Name Role Phone ZuleymaBola [facility], [facility] Unavailable [phone] Shaan Ramirez MD Unavailable [phone] Luis Ambriz MD Primary Care Provider [phone] MD Unavailable [phone] Nini Patten MD Unavailable [phone] Nini Patten MD Unavailable [phone] Margaret Reyes [facility] Unavailable Unavailable Adria Cisneros MD Unavailable [phone] Adria Cisneros MD Unavailable [phone] Adria Cisneros MD Unavailable [phone] Margaret Reyes [facility] Unavailable Unavailable Adria Cisneros MD Unavailable [phone] Encounter Details Date Type Department Care Team (Late st Contact Info) Description 05/14/2023 [facility] Medical [facility] Eye [address] [address] Baljinder Friend Social History Tobacco Use Types [...] Description 02/09/2025 10:00 AM CDT Office Visit [facility] Eye [facility] 516 [facility] 9th Fl Clin 9A [place] [address] Shaan Ramirez MD [address] [place] [address] 323815 03/09/2025 2:00 PM CDT Virtual Visit [place] [address] [address] [place] [address] Adria Cisneros MD [address] [place] [address] 88 [place], [place] 550045 documented as of this encounter Visit Diagnoses Not on filedocumented in this encounter Additional Health Concerns Assessment Noted Time PHQ-9 Depression Total Score: 4 12/25/19 23 2:25 PM CDT documented as of this encounter Care Teams Automatic Clipper Relationship Specialty Start Date End Date Luis Ambriz MD [facility] [address] [place] [address] PCP - General Family Medicine 02/16/22 Bola Amor, ELECTRICAL LOGGING OPERATOR, [facility] [address] [facility] 180 [place], [place] 371465 Assigned Behavioral Health Provider 12/04/21 06/27/24 Shaan Ramirez MD [address] [place] [address] [id number] Assigned Surgical Provider 12/04/[address] MD [facility] [address] [place] [address] Assigned Rheumatology Provider 02/25/22 02/25/24 Nini Patten MD [address] [place] [address] Endocrinology, Diabetes, and Metabolism 08/29/22 Nini Patten MD [address] [place] [address] Assigned Endocrinology Provider 01/20/23 11/25/24 Margaret Reyes [facility] Pharmacist 08/10/23 Adria Cisneros MD [address] [place] [address] Rheumatology 11/09/23 Adria Cisneros MD [address] [place] [address] 979[address] Rheumatology 11/09/23 Adria Cisneros MD [address] [place] [address] Assigned Rheumatology Provider 02/26/24 Margaret Reyes [facility] Assigned MTM Pharmacist 06/28/24 Adria Cisneros MD [address] [place] [address] 00181 Rheumatology 08/01/24 documented as of this encounter
--- OUTSIDE RECORDS SUMMARY | 2025-02-03 01:56 | XMS_ITS | Encounter Summary ---
Author Organization [place] Address [address] [place] [address] Care Team Providers Care Stop Attacher Name Role Phone ZuleymaBola [facility], [facility] Unavailable +[phone] Shaan Ramirez MD Unavailable [phone] Luis Ambriz MD Primary Care Provider [phone] MD Unavailable [phone] Nini Patten MD Unavailable [phone] Nini Patten MD Unavailable [phone] Margaret Reyes [facility] Unavailable Unavailable Adria Cisneros MD Unavailable [phone] Adria Cisneros MD Unavailable [phone] Adria Cisneros MD Unavailable [phone] Margaret Reyes [facility] Unavailable Unavailable Adria Cisneros MD Unavailable [phone] Encounter Details Date Type Department Care Team (Late st Contact Info) Description 01/04/2023 [facility] Medical Advice [facility] Endocrinology Clinic [address] [place] [address] Rika Adler CMA Social History [...] Description 02/09/2025 10:00 AM CDT Office Visit [facility] 516 [facility] 9th Fl Clin 9A [place] [address] Shaan Ramirez MD 6 [place] [address] 03/09/2025 2:00 PM CDT Virtual Visit [facility] [address] [place] [address] Adria Cisneros MD 515 [facility] 88 [place], [place] 13[address]95 documented as of this encounter Visit Diagnoses Not on filedocumented in this encounter Additional Health Concerns Assessment Noted Time PHQ-9 Depression Total Score: 4 12/25/19 23 2:25 PM CDT documented as of this encounter Care Teams Stop Attacher Relationship Specialty Start Date End Date Luis Ambriz MD [facility] [address] [place] [address] PCP - General Family Medicine 02/16/22 Bola Amor, LEATHER CUTTER, [facility] [address] [place] [address] [place] [address] Assigned Behavioral Health Provider 12/04/21 06/27/24 Shaan Ramirez MD [address] [place] [address] Assigned Surgical Provider 12/04/[address] MD [facility] [address] [place] [address] Assigned Rheumatology Provider 02/25/22 02/25/24 Nini Patten MD 909 [place] [address] Endocrinology, Diabetes, and Metabolism 08/29/22 Nini Patten MD [address] [place] [address] 17265 Assigned Endocrinology Provider 01/20/23 11/25/24 Margaret Reyes [facility] Pharmacist 08/10/23 Adria Cisneros MD [address] [place] [address]24 Rheumatology 11/09/23 Adria Cisneros MD [address] [place] [address] 93460 Rheumatology 11/09/23 Adria Cisneros MD [address] [place] [address] 54818 Assigned Rheumatology Provider 02/26/24 Margaret Reyes [facility] Assigned MTM Pharmacist 06/28/24 Adria Cisneros MD [address] [place] [address] 68248 Rheumatology 08/01/24 documented as of this encounter
--- OUTSIDE RECORDS SUMMARY | 2025-02-03 01:56 | XMS_ITS | Encounter Summary ---
Author Organization [place] Address [address] [place] [address]11 Care Team Providers Care Milled Lumber Grader Name Role Phone ZuleymaChristalromancamila Naranjo [facility], [facility] Unavailable [phone] Shaan Ramirez MD Unavailable [phone] Luis Ambriz MD Primary Care Provider [phone] MD Unavailable [phone] Nini Patten MD Unavailable [phone] Nini Patten MD Unavailable [phone] Margaret Reyes [facility] Unavailable Unavailable Adria Cisneros MD Unavailable [phone] Adria Cisneros MD Unavailable [phone] Adria Cisneros MD Unavailable [phone] Margaret Reyes [facility] Unavailable Unavailable Adria Cisneros MD Unavailable [phone] Encounter Details Date Type Department Care Team (Late st Contact Info) Description 09/13/2022 [facility] Medical Advice [facility] Rheumatology Clinic [address] [address] MD Health [facility], Rheumatology [address] [place] [address] Social History Tobacco Use Types Packs/Day [...] at 10A Jayla Elise RN Rheumatology Clinic LE AND HEEL STIFFENER * Telephone Encounter - Jayla Elise RN - 09/13/2022 2:37 PM CSTSummary: patient update on culture results Spoke to patient regarding her MyC message update about staph infection. Reporting she saw wood furniture assembler, Dr. Francisca Lomeli at [facility] [place] d/t recurrent skin infections. This visit included a nasal swab/culture of her nares. Patient has included a copy of the visit note and will upload the culture results later today whichpatient reports was positive for Staph infection. Auto Emissions Technician is recommending extensive antbx regime. Patient verifies she 1-is not taking methotrexate 2-will recheck her labs on 09/25 3--stopped humira apprx 6 wks ago on her own thinking it was causing her repeated infections. Message update to Dr. Lane. LE AND HEEL STIFFENER LE AND HEEL STIFFENER documented in this encounter Plan of Treatment Upcoming Encounters Date Type Department Care Team (Late st Contact Info) Description 02/09/2025 10:00 AM CDT Office Visit [facility] Eye [facility] 516 [facility] 9th Fl Clin 9A [place] [address] Shaan Ramirez MD 516 [place] [address] 03/09/2025 2:00 PM CDT Virtual Visit [facility] [address] [place] [address] Adria Cisneros MD 515 [facility] 88 [place], [place] 8[address] documented as of this encounter Visit Diagnoses Not on filedocumented in this encounter Additional Health Concerns Assessment Noted Time PHQ-9 Depression Total Score: 10 023 9:59 AM INSOLE AND HEEL STIFFENER documented as of this encounter Care Teams Milled Lumber Grader Relationship Specialty Start Date End Date Luis Ambriz MD [facility] [address] [place] [address] PCP - General Family Medicine 02/16/22 Bola mAor, [facility], [facility] [address] [place] [place] [address] Assigned Behavioral Health Provider 12/04/21 06/27/24 Shaan Ramirez MD [address] [place] [address] Assigned Surgical Provider 12/04/[address] MD [facility] [address], [place] [address] Assigned Rheumatology Provider 02/25/22 02/25/24 Nini Patten MD 909 [place] [address] Endocrinology, Diabetes, and Metabolism 08/29/22 Nini Patten MD 909 [place] [address] Assigned Endocrinology Provider 01/20/23 11/25/24 Margaret Reyes [facility] Pharmacist 08/10/23 Adria Cisneros MD [address] [place] [address]85 Rheumatology 11/09/23 Adria Cisneros MD [address] [place] [address] 16337 Rheumatology 11/09/23 Adria Cisneros MD [address] [place] [address] 95198 Assigned Rheumatology Provider 02/26/24 Margaret Reyes [facility] Assigned MTM Pharmacist 06/28/24 Adria Cisneros MD [address] [place] [address] 18316 Rheumatology 08/01/24 documented as of this encounter
--- OUTSIDE RECORDS SUMMARY | 2025-02-03 01:56 | XMS_ITS | Encounter Summary ---
Author Organization [place] Address [address] [place] [address]1131 Care Team Providers Care Echocardiography Radiology Technologist Name Role Phone Bola Amor [facility], [facility] Unavailable [phone] Shaan Ramirez MD Unavailable +[phone] Luis Ambriz MD Primary Care Provider [phone] MD Unavailable [phone] Nini Patten MD Unavailable [phone] Nini Patten MD Unavailable [phone] Margaret Reyes [facility] Unavailable Unavailable Adria Cisneros MD Unavailable [phone] Adria Cisneros MD Unavailable [phone] Adria Cisneros MD Unavailable [phone] Margaret Reyes [facility] Unavailable Unavailable Adria Cisneros MD Unavailable [phone] Encounter Details Date Type Department Care Team (Late st Contact Info) Description 12/11/2023 [facility] [place] Medical Advice [facility] Rheumatology Clinic [address] [address] Margaret Reyes, [facility] Social History Tobacco Use Types [...] Description 02/09/2025 10:00 AM CDT Office Visit [facility] Clinic [address] 9th Fl Clin 9A [place] [address] Shaan Ramirez MD [address] [place] [address] 518645 03/09/2025 2:00 PM CDT Virtual Visit [facility] [address] [place] [address] [place] [address] Adria Cisneros MD [address] [place] [address] 88 [place], [place] [address] documented as of this encounter Visit Diagnoses Not on filedocumented in this encounter Additional Health Concerns Assessment Noted Time PHQ-9 Depression Total Score: 4 12/25/19 23 2:25 PM CDT documented as of this encounter Care Teams Echocardiography Radiology Technologist Relationship Specialty Start Date End Date Luis Ambriz MD [facility] [address] [place] [address] PCP - General Family Medicine 02/16/22 Bola Amor, CAR RUNNER, [facility] [address] [facility] 180 [place] [address] Assigned Behavioral Health Provider 12/04/21 06/27/24 Shaan Ramirez MD 516 [place] [address] Assigned Surgical Provider 12/04/[address] MD [facility] [address] [place] [address] Assigned Rheumatology Provider 02/25/22 02/25/24 Nini Patten MD [address] [place] [address] Endocrinology, Diabetes, and Metabolism 08/29/22 Nini Patten MD [address] [place] [address] 095[address] Assigned Endocrinology Provider 01/20/23 11/25/24 Margaret Reyes [facility] Pharmacist 08/10/23 Adria Cisneros MD [address] [place] [address] 92447 Rheumatology 11/09/23 Adria Cisneros MD [address] [place] [address] 32094 Rheumatology 11/09/23 Adria Cisneros MD [address] [place] [address] 67760 Assigned Rheumatology Provider 02/26/24 Margaret Reyes [facility] Assigned MTM Pharmacist 06/28/24 Adria Cisneros MD [address] [place] [address] 69802 Rheumatology 08/01/24 documented as of this encounter
--- OUTSIDE RECORDS SUMMARY | 2025-02-03 01:56 | XMS_ITS | Encounter Summary ---
Author Organization [place] Address [address] [place] [address]55 Care Team Providers Care Director Of Consumer Affairs Name Role Phone ZuleymaBola [facility], [facility] Unavailable [phone] Shaan Ramirez MD Unavailable [phone] Luis Ambriz MD Primary Care Provider [phone] MD Unavailable [phone] Nini Patten MD Unavailable [phone] Nini Patten MD Unavailable [phone] Margaret Reyes [facility] Unavailable Unavailable Adria Cisneros MD Unavailable [phone] Adria Cisneros MD Unavailable [phone] Adria Cisneros MD Unavailable [phone] Margaret Reyes [facility] Unavailable Unavailable Adria Cisneros MD Unavailable [phone] Encounter Details Date Type Department Care Team (Late st Contact Info) Description 07/06/2023 [facility] [address] 4th [place] [address] Baljinder Friend Social History Tobacco [...] Description 02/09/2025 10:00 AM CDT Office Visit [facility] Eye [facility] 9th Fl Clin 9A [place] [address] Shaan Ramirez MD 6 [place], [place] 27[address] 03/09/2025 2:00 PM CDT Virtual Visit [place] [address] [address] [place] [address] Adria Cisneros MD 515 [facility] 88 [place] [address] documented as of this encounter Visit Diagnoses Not on filedocumented in this encounter Additional Health Concerns Assessment Noted Time PHQ-9 Depression Total Score: 4 12/25/19 23 2:25 PM CDT documented as of this encounter Care Teams Director Of Consumer Affairs Relationship Specialty Start Date End Date Luis Ambriz MD [facility] [address] [place] [address] PCP - General Family Medicine 02/16/22 Bola Amor, ASSISTANT MANAGER TRAINEE, [facility] [address] [place] [address] Assigned Behavioral Health Provider 12/04/21 06/27/24 Shaan Ramirez MD [address] [place] [address] Assigned Surgical Provider 12/04/[address] MD [facility] [address] [place] [address] Assigned Rheumatology Provider 02/25/22 02/25/24 Nini Patten MD [address] [place] [address] Endocrinology, Diabetes, and Metabolism 08/29/22 Nini Patten MD [address] [place] [address] 396655 Assigned Endocrinology Provider 01/20/23 11/25/24 Margaret Reyes [facility] Pharmacist 08/10/23 Adria Cisneros MD [address] [place] [address] Rheumatology 11/09/23 Adria Cisneros MD [address] [place] [address] Rheumatology 11/09/23 Adria Cisneros MD [address] [place] [address] Assigned Rheumatology Provider 02/26/24 Margaret Reyes [facility] Assigned MTM Pharmacist 06/28/24 Adria Cisneros MD [address] [place] [address]15 Rheumatology 08/01/24 documented as of this encounter
--- OUTSIDE RECORDS SUMMARY | 2025-02-03 01:56 | XMS_ITS | Encounter Summary ---
Author Organization [place] Address [address] [place] [address] Care Team Providers Care Correspondence Representative Name Role Phone Zuleyma Christalromancamila Nraanjo [facility], [facility] Unavailable +[phone] Shaan Ramirez MD Unavailable [phone] Luis Ambriz MD Primary Care Provider [phone] MD Unavailable [phone] Nini Patten MD Unavailable [phone] Nini Patten MD Unavailable [phone] Margaret Reyes [facility] Unavailable Unavailable Adria Cisneros MD Unavailable [phone] Adria Cisneros MD Unavailable [phone] Adria Cisneros MD Unavailable +[phone] Margaret Reyes [facility] Unavailable Unavailable Adria Cisneros MD Unavailable [phone] Encounter Details Date Type Department Care Team (Late st Contact Info) Description 01/07/2022 [facility] Eye [place] 737696 [facility] [address] [place] [address] Shaan Ramirez MD [address] [place] [address] 296305 Intermediate uveitis of both eyes (Primary Dx) [...] Description 02/09/2025 10:00 AM CDT Office Visit [facility] [place] 737696 [facility] 9th Fl Clin 9A [place] [address] Shaan Ramirez MD [address] [place] [address] 127165 03/09/2025 2:00 PM CDT Virtual Visit [facility] [id number] [place] [address] [place] [address] Adria Cisneros MD [address] [place] [address] 396105 documented as of this encounter Visit Diagnoses Diagnosis Intermediate uveitis of both eyes- Primary documented in this encounter Additional Health Concerns Assessment Noted Time PHQ-9 Depression Total Score: 7 01/05/20 22 12:23 PM CDT documented as of this encounter Care Teams Correspondence Representative Relationship Specialty Start Date End Date Luis Ambriz MD [facility]NOTE 3] [address] [place] [address] PCP - General Family Medicine 02/16/22 Bola Amor, BUFF WHEEL FABRICATOR, [facility] [address] [facility] [address] [address] Assigned Behavioral Health Provider 12/04/21 06/27/24 Shaan Ramirez MD [address] [place] [address]20 Assigned Surgical Provider 12/04/[address] MD [facility]NOTE 3] [address] [place] [address] Assigned Rheumatology Provider 02/25/22 02/25/24 Nini Patten MD [address] [place] [address] Endocrinology, Diabetes, and Metabolism 08/29/22 Nini Patten MD [address] [place] [address] 93258 Assigned Endocrinology Provider 01/20/23 11/25/24 Margaret Reyes [facility] 08/10/23 Adria Cisneros MD [address] [place] [address] Rheumatology 11/09/23 Adria Cisneros MD [address] [place] [address]01 Rheumatology 11/09/23 Adria Cisneros MD [address] [place] [address]62 Assigned Rheumatology Provider 02/26/24 Margaret Reyes [facility] Assigned MTM Pharmacist 06/28/24 Adria Cisneros MD [address] [place] [address] [phone] Rheumatology 08/01/24 documented as of this encounter
--- OUTSIDE RECORDS SUMMARY | 2025-02-03 01:56 | XMS_ITS | Encounter Summary ---
Author Organization [place] Address [address] [place] [address] Care Team Providers Care Automobile Radiator Mechanic Name Role Phone ZuleymaBola [facility], [facility] Unavailable +[phone] Shaan Ramirez MD Unavailable [phone] Luis Ambriz MD Primary Care Provider [phone] MD Unavailable +[phone] Nini Patten MD Unavailable [phone] Nini Patten MD Unavailable [phone] Margaret Reyes [facility] Unavailable Unavailable Adria Cisneros MD Unavailable [phone] Adria Cisneros MD Unavailable +[phone] Adria Cisneros MD Unavailable +[phone] Margaret Reyes [facility] Unavailable Unavailable Adria Cisneros MD Unavailable [phone] Encounter Details Date Type Department Care Team (Late st Contact Info) Description 02/02/[address] [address] Baljinder Friend Social History Tobacco [...] CDT Office Visit [facility] 516 [facility] 9th Fl Clin 9A [place] [address] Shaan Ramirez MD 6 [place] [address] 03/09/2025 2:00 PM CDT Virtual Visit [address] [place] [address] Adria Cisneros MD 515 [facility] 88 [place], [place] 973635 documented as of this encounter Visit Diagnoses Not on filedocumented in this encounter Additional Health Concerns Assessment Noted Time PHQ-9 Depression Total Score: 6 02/03/20 22 9:26 AM CDT documented as of this encounter Care Teams Automobile Radiator Mechanic Relationship Specialty Start Date End Date Luis Ambriz MD [facility] [address] [place] [address] PCP - General Family Medicine 02/16/22 Bola Amor, SEISMIC ENGINEER, [facility] [address] [place] [address] [place] [address] Assigned Behavioral Health Provider 12/04/21 06/27/24 Shaan Ramirez MD [address] [place] [address]14 Assigned Surgical Provider 12/04/[address] MD [facility] [address] [place] [address] Assigned Rheumatology Provider 02/25/22 02/25/24 Nini Patten MD 909 [place] [address] Endocrinology, Diabetes, and Metabolism 08/29/22 Nini Patten MD [address] [place] [address] Assigned Endocrinology Provider 01/20/23 11/25/24 Margaret Reyes [facility] Pharmacist 08/10/23 Adria Cisneros MD [address] [place] [address] Rheumatology 11/09/23 Adria Cisneros MD [address] [place] [address] Rheumatology 11/09/23 Adria Cisneros MD [address] [place] [address] Assigned Rheumatology Provider 02/26/24 Margaret Reyes [facility] Assigned MTM Pharmacist 06/28/24 Adria Cisneros MD [address] [place] [address] Rheumatology 08/01/24 documented as of this encounter
--- OUTSIDE RECORDS SUMMARY | 2025-02-03 01:56 | XMS_ITS | Encounter Summary ---
Author Organization [place] Address [address] [place] [address]31 Care Team Providers Care Electric Spot Welder Name Role Phone ZuleymaBola [facility], [facility] Unavailable [phone] Shaan Ramirez MD Unavailable [phone] Luis Ambriz MD Primary Care Provider [phone] MD Unavailable [phone] Nini Patten MD Unavailable [phone] Nini Patten MD Unavailable [phone] Margaret Reyes [facility] Unavailable Unavailable Adria Cisneros MD Unavailable [phone] Adria Cisneros MD Unavailable [phone] Adria Cisneros MD Unavailable [phone] Margaret Reyes [facility] Unavailable Unavailable Adria Cisneros MD Unavailable [phone] Encounter Details Date Type Department Care Team (Late st Contact Info) Description 01/15/2023 [facility] Endocrinology Clinic [address] [address] Nini Patten MD [address] [place] [address] Social History Tobacco Use Types Packs/Day [...] Description 02/09/2025 10:00 AM CDT Office Visit [facility] Eye [facility] 516 [facility] 9th Fl Clin 9A [place] [address] Shaan Ramirez MD [address] [place] [address] 353025 03/09/2025 2:00 PM CDT Virtual Visit [facility] [address] [place] [address] Adria Cisneros MD [address] [place] [address] 88 [place], [place] 846505 documented as of this encounter Visit Diagnoses Not on filedocumented in this encounter Additional Health Concerns Assessment Noted Time PHQ-9 Depression Total Score: 4 12/25/19 23 2:25 PM CDT documented as of this encounter Care Teams Electric Spot Welder Relationship Specialty Start Date End Date Luis Ambriz MD [facility] [address] [place] [address] PCP - General Family Medicine 02/16/22 Bola Amor, MICROFILM CLERK, [facility] [address] [facility] 180 [place], [place] 447925 Assigned Behavioral Health Provider 12/04/21 06/27/24 Shaan Ramirez MD [address] [place] [address] Assigned Surgical Provider 12/04/[address] MD [facility] [address] [place] [address] Assigned Rheumatology Provider 02/25/22 02/25/24 Nini Patten MD [address] [place] [address] 095235 Endocrinology, Diabetes, and Metabolism 08/29/22 Nini Patten MD [address] [place] [address] Assigned Endocrinology Provider 01/20/23 11/25/24 Margaret Reyes [facility] Pharmacist 08/10/23 Adria Cisneros MD [address] [place] [address] Rheumatology 11/09/23 Adria Cisneros MD [address] [place] [address] Rheumatology 11/09/23 Adria Cisneros MD [address] [place] [address]47 Assigned Rheumatology Provider 02/26/24 Margaret Reyes [facility] Assigned MTM Pharmacist 06/28/24 [place]ria Cisneros MD [address] [place] [address] 17567 Rheumatology 08/01/24 documented as of this encounter
--- OUTSIDE RECORDS SUMMARY | 2025-02-03 01:56 | XMS_ITS | Encounter Summary ---
Author Organization [place] Address [address] [place] [address] 88155 Care Team Providers Care Office Specialist Name Role Phone ZuleymaChristalromancamila Naranjo [facility], [facility] Unavailable [phone] Shaan Ramirez MD Unavailable [phone] Luis Ambriz MD Primary Care Provider [phone] MD Unavailable [phone] Nnii Patten MD Unavailable [phone] Nini Patten MD Unavailable [phone] Margaret Reyes [facility] Unavailable Unavailable Adria Cisneros MD Unavailable [phone] Adria Cisneros MD Unavailable [phone] Adria Cisneros MD Unavailable [phone] Margaret Reyes [facility] Unavailable Unavailable Adria Cisneros MD Unavailable [phone] Encounter Details Date Type Department Care Team (Late st Contact Info) Description 02/24/2022 [facility] Medical Advice [facility] Rheumatology Clinic [address] [address] MD Health [facility], Rheumatology [address] [place] [address] Social History Tobacco Use Types Packs/Day [...] Description 02/09/2025 10:00 AM CDT Office Visit [facility] Eye [facility] 516 [facility] 9th Fl Clin 9A [place] [address] Shaan Ramirez MD [address] [place] [address] 877055 03/09/2025 2:00 PM CDT Virtual Visit [facility] [address] [place] [address] Adria Cisneros MD [address] [place] [address] 88 [place], [place] 267225 documented as of this encounter Visit Diagnoses Not on filedocumented in this encounter Additional Health Concerns Assessment Noted Time PHQ-9 Depression Total Score: 6 02/03/20 22 9:26 AM CDT documented as of this encounter Care Teams Office Specialist Relationship Specialty Start Date End Date Luis Ambriz MD [facility] [address] [place] [address] PCP - General Family Medicine 02/16/22 Bola Amor, LOG POND WORKER, [facility] [address] [facility] 180 [place], [place] [address] Assigned Behavioral Health Provider 12/04/21 06/27/24 Shaan Ramirez MD [address] [place] [address] Assigned Surgical Provider 12/04/21 Richmond Lnae MD [facility] [address], [place] [address] Assigned Rheumatology Provider 02/25/22 02/25/24 Nini Patten MD [address] [place] [address] Endocrinology, Diabetes, and Metabolism 08/29/22 Nini Patten MD [address] [place] [address] 22967 Assigned Endocrinology Provider 01/20/23 11/25/24 Margaret Reyes [facility] Pharmacist 08/10/23 Adria Cisneros MD [address] [place] [address] Rheumatology 11/09/23 Adria Cisneros MD [address] [place] [address] Rheumatology 11/09/23 Adria Cisneros MD [address] [place] [address] 21276 Assigned Rheumatology Provider 02/26/24 Margaret Reyes [facility] Assigned MTM Pharmacist 06/28/24 Adria Cisneros MD [address] [place] [address] Rheumatology 08/01/24 documented as of this encounter
--- OUTSIDE RECORDS SUMMARY | 2025-02-03 01:56 | XMS_ITS | Encounter Summary ---
Author Organization [place] Address [address] [place] [address] 84682 Care Team Providers Care Cardiograph Operator Name Role Phone ZuleymaChristalromancamila Naranjo [facility], [facility] Unavailable +[phone] Shaan Ramirez MD Unavailable [phone] Luis Ambriz MD Primary Care Provider [phone] MD Unavailable [phone] Nini Patten MD Unavailable [phone] Nini Patten MD Unavailable +[phone] Margaret Reyes [facility] Unavailable Unavailable Adria Cisneros MD Unavailable [phone] Adria Cisneros MD Unavailable [phone] Adria Cisneros MD Unavailable [phone] Margaret Reyes [facility] Unavailable Unavailable Adria Cisneros MD Unavailable [phone] Encounter Details Date Type Department Care Team (Late st Contact Info) Description 05/17/2022 [facility] Rheumatology Clinic [address] [address] MD Health [facility], Rheumatology [address] [place] [address] Social History Tobacco Use Types Packs/Day [...] Description 02/09/2025 10:00 AM CDT Office Visit [facility] Eye [facility] [address] 9th [address] Clin 9A [place] [address] Shaan Ramirez MD [address] [place] [address] 162845 03/09/2025 2:00 PM CDT Virtual Visit [address] [address] Adria Cisneros MD [address] [place] [address] 931235 documented as of this encounter Visit Diagnoses Not on filedocumented in this encounter Additional Health Concerns Assessment Noted Time PHQ-9 Depression Total Score: 4 03/27/20 22 9:21 AM CDT documented as of this encounter Care Teams Cardiograph Operator Relationship Specialty Start Date End Date Luis Ambriz MD [facility] [address] [place] [address] PCP - General Family Medicine 02/16/22 Bola Amor, PROPERTY ASSISTANT, [facility] [address] [address] Assigned Behavioral Health Provider 12/04/21 06/27/24 Shaan Ramirez MD [address] [place] [address]863 Assigned Surgical Provider 12/04/[address] MD [facility] [address] [place] [address] Assigned Rheumatology Provider 02/25/22 02/25/24 Nini Patten MD [address] [place] [address] Endocrinology, Diabetes, and Metabolism 08/29/22 Nini Patten MD [address] [place] [address] Assigned Endocrinology Provider 01/20/23 11/25/24 Margaret Reyes, [facility] Pharmacist 08/10/23 Adria Cisneros MD [address] [place] [address]10 Rheumatology 11/09/23 Adria Cisneros MD [address] [place] [address] 25521 Rheumatology 11/09/23 Adria Cisneros MD [address] [place] [address] Assigned Rheumatology Provider 02/26/24 Margaret Reyes [facility] Assigned MTM Pharmacist 06/28/24 Adria Cisneros MD [address] [place] [address]338 Rheumatology 08/01/24 documented as of this encounter
--- OUTSIDE RECORDS SUMMARY | 2025-02-03 01:56 | XMS_ITS | Encounter Summary ---
Author Organization [place] Address [address] [place] [address]262 Care Team Providers Care Glass Edger Name Role Phone ZuleymaBola [facility], [facility] Unavailable [phone] Shaan Ramirez MD Unavailable [phone] Luis Ambriz MD Primary Care Provider [phone] MD Unavailable [phone] Nini Patten MD Unavailable [phone] Nini Patten MD Unavailable +[phone] Margaret Reyes [facility] Unavailable Unavailable Adria Cisneros MD Unavailable [phone] Adria Cisneros MD Unavailable [phone] Adria Cisneros MD Unavailable +[phone] Margaret Reyes [facility] Unavailable Unavailable Adria Cisneros MD Unavailable [phone] Reason for Visit * Reason Onset Date Comments Lab Orders 01/11/2023 Fax to [facility] at [phone] Encounter Details Date Type Department Care Team (Latest Contact Info) Description 01/11/2023 [facility] Natasha Naranjo [facility] Rheumatology Clinic [address] [address] MD Health [facility], Rheumatology [address] [place] [address] Lab Orders (Fax to [facility] at 50... Social History Tobacco Use [...] Lab orders have been successfully faxed to [facility] as requested. Confirmed via [employer]. Amber Orozco CMA 01/15/2023 10:41 AM documented in this encounter Plan of Treatment Upcoming Encounters Date Type Department Care Team ([facility] st Contact Info) Description 02/09/2025 10:00 AM CDT Office Visit [address] 9th [place] Clin 9A [place] [address] Shaan Ramirez MD [address] [place] [address] [phone] 03/09/2025 2:00 PM CDT Virtual Visit [address] [address] Adria Cisneros MD [address] [place] [address] [phone] documented as of this encounter Visit Diagnoses Not on filedocumented in this encounter Additional Health Concerns Assessment Noted Time PHQ-9 Depression Total Score: 4 12/25/19 23 2:25 PM CDT documented as of this encounter Care Teams Glass Edger Relationship Specialty Start Date End Date Luis Ambriz MD [facility] [address] [place] [address] PCP - General Family Medicine 02/16/22 Bola Amor, FORGING PRESS LEVER TENDER, [facility] [address] [address] Assigned Behavioral Health Provider 12/04/21 06/27/24 Shaan Ramirez MD [address] [place] [address] 26089 Assigned Surgical Provider 12/04/[address] MD [facility] [address] [place] [address] Assigned Rheumatology Provider 02/25/22 02/25/24 Nini Patten MD [address] [place] [address] Endocrinology, Diabetes, and Metabolism 08/29/22 Nini Patten MD [address] [place] [address] Assigned Endocrinology Provider 01/20/23 11/25/24 Margaret Reyes, [facility] Pharmacist 08/10/23 Adria Cisneros MD [address] [place] [address] 626245 Rheumatology 11/09/23 Adria Cisneros MD [address] [place] [address] 979[address] Rheumatology 11/09/23 Adria Cisneros MD [address] [place] [address] 16397 Assigned Rheumatology Provider 02/26/24 Margaret Reyes [facility] Assigned MTM Pharmacist 06/28/24 Adria Cisneros MD [address] [place] [address]75 Rheumatology 08/01/24 documented as of this encounter
--- OUTSIDE RECORDS SUMMARY | 2025-02-03 01:56 | XMS_ITS | Encounter Summary ---
Author Organization [place] Address [address] [place] [address] Care Team Providers Care Director Of Education Name Role Phone ZuleymaChristalromancamila Naranjo [facility], [facility] Unavailable [phone] Shaan Ramierz MD Unavailable [phone] Luis Ambriz MD Primary Care Provider [phone] MD Unavailable [phone] Nini Patten MD Unavailable [phone] Nini Patten MD Unavailable +[phone] Margaret Reyes [facility] Unavailable Unavailable Adria Cisneros MD Unavailable [phone] Adria Cisneros MD Unavailable [phone] Adria Cisneros MD Unavailable [phone] Margaret Reyes [facility] Unavailable Unavailable Adria Cisneros MD Unavailable [phone] Encounter Details Date Type Department Care Team (Late st Contact Info) Description 09/26/2022 [facility] Medical Advice [facility] Rheumatology Clinic [address] [address] MD Health [facility], Rheumatology [address] [place] [address] Social History Tobacco Use Types Packs/Day [...] Description 02/09/2025 10:00 AM CDT Office Visit [facility] Eye [place] [id number] [facility] 9th Fl Clin 9A [place] [address] Shaan Ramirez MD [address] [place] [address] [phone] 03/09/2025 2:00 PM CDT Virtual Visit [facility] [address] [place] [address] Adria Cisneros MD [address] [place] [address] 88 [place], [place] 846645 documented as of this encounter Visit Diagnoses Not on filedocumented in this encounter Additional Health Concerns Assessment Noted Time PHQ-9 Depression Total Score: 10 023 9:59 AM COMBINING MACHINE 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 Care Teams Director Of Education Relationship Specialty Start Date End Date Luis Ambriz MD [facility] [address] [place] [address] PCP - General Family Medicine 02/16/22 Bola Amor, OUTSOLE TACKER, [facility] [address] [facility] 180 [place], [place] 871845 Assigned Behavioral Health Provider 12/04/21 06/27/24 Shaan Ramirez MD [address] [place] [address] [phone] Assigned Surgical Provider 12/04/[address] MD [facility] [address] [place] [address] Assigned Rheumatology Provider 02/25/22 02/25/24 Nini Patten MD [address] [place] [address]89 Endocrinology, Diabetes, and Metabolism 08/29/22 Nini Patten MD [address] [place] [address]99 Assigned Endocrinology Provider 01/20/23 11/25/24 Margaret Reyes [facility] Pharmacist 08/10/23 Adria Cisneros MD [address] [place] [address] Rheumatology 11/09/23 Adria Cisneros MD [address] [place] [address] Rheumatology 11/09/23 Adria Cisneros MD [address] [place] [address]326 Assigned Rheumatology Provider 02/26/24 Margaret Reyes [facility] Assigned MTM Pharmacist 06/28/24 Adria Cisneros MD [address] [place] [address]96[address] Rheumatology 08/01/24 documented as of this encounter
--- OUTSIDE RECORDS SUMMARY | 2025-02-03 01:56 | XMS_ITS | Encounter Summary ---
Author Organization [place] Address [address] [place] [address] Care Team Providers Care Electronic Lab Technician Name Role Phone ZuleymaBola [facility] Unavailable [phone] Shaan Ramirez MD Unavailable [phone] Luis Ambriz MD Primary Care Provider [phone] MD Unavailable [phone] Nini Patten MD Unavailable [phone] Nini Patten MD Unavailable [phone] Margaret Reyes [facility] Unavailable Unavailable Adria Cisneros MD Unavailable [phone] Adria Cisneros MD Unavailable [phone] Adria Cisneros MD Unavailable [phone] Margaret Reyes [facility] Unavailable Unavailable Adria Cisneros MD Unavailable [phone] Encounter Details Date Type Department Care Team (Late st Contact Info) Description 04/10/2023 [facility] Endocrinology Clinic [address] [place] [address] Nini Patten MD [address] [place] [address] Social History Tobacco Use Types Packs/Day [...] Office Visit [facility] [place] 656366 [facility] 9th Fl Clin 9A [place] [address] Shaan Ramirez MD [address] [place] [address] 594935 03/09/2025 2:00 PM CDT Virtual Visit [facility] [address] [place] [address] Adria Cisneros MD [address] [facility] 88 [place], [place] 7102[address] documented as of this encounter Visit Diagnoses Not on filedocumented in this encounter Additional Health Concerns Assessment Noted Time PHQ-9 Depression Total Score: 4 12/25/19 23 2:25 PM CDT documented as of this encounter Care Teams Electronic Lab Technician Relationship Specialty Start Date End Date Luis Ambriz MD [facility] [address] [place] [address] PCP - General Family Medicine 02/16/22 Bola Amor, PACKING AND STAMPING MACHINE OPERATOR, [facility] [address] [facility] [address] [place], [place] 790105 Assigned Behavioral Health Provider 12/04/21 06/27/24 Shaan Ramirez MD [address] [place] [address] Assigned Surgical Provider 12/04/[address] MD [facility] [address] [place] [address] Assigned Rheumatology Provider 02/25/22 02/25/24 Nini Patten MD [address] [place] [address] 807565 Endocrinology, Diabetes, and Metabolism 08/29/22 Nini Patten MD [address] [place] [address] Assigned Endocrinology Provider 01/20/23 11/25/24 Margaret Reyes [facility] Pharmacist 08/10/23 Adria Cisneros MD [address] [place] [address] Rheumatology 11/09/23 Adria Cisneros MD [address] [place] [address] Rheumatology 11/09/23 Adria Cisneros MD [address] [place] [address] Assigned Rheumatology Provider 02/26/24 Margaret Reyes [facility] Assigned MTM Pharmacist 06/28/24 Adria Cisneros MD [address] [place] [address] 235785 Rheumatology 08/01/24 documented as of this encounter
--- OUTSIDE RECORDS SUMMARY | 2025-02-03 01:56 | XMS_ITS | Encounter Summary ---
Author Organization [place] Address [address] [place] [address] Care Team Providers Care Supervisor Fireworks Assembly Name Role Phone ZuleymaBola [facility] Unavailable + [phone] Shaan Ramirez MD Unavailable [phone] Luis Ambriz MD Primary Care Provider [phone] MD Unavailable [phone] Nini Patten MD Unavailable [phone] Nini Patten MD Unavailable [phone] Margaret Reyes [facility] Unavailable Unavailable Adria Cisneros MD Unavailable [phone] Adria Cisneros MD Unavailable [phone] Adria Cisneros MD Unavailable [phone] Margaret Reyes [facility] Unavailable Unavailable Adria Cisneros MD Unavailable [phone] Encounter Details Date Type Department Care Team (Late st Contact Info) Description 08/05/2023 External Order Results [facility] [address] [place] [address] Outside, Provider Social History Tobacco Use Types [...] 02/09/2025 10:00 AM CDT Office Visit [facility] 516 [facility] 9th Fl Clin [address] [place] [address] Shaan Ramirez MD [address] [place] [address] 03/09/2025 2:00 PM CDT Virtual Visit [address] [place] [address] Adria Cisneros MD [address] [place] [address] 88 [place], [place] 491245 documented as of this encounter Procedures Procedure Name Priority Date/Time Associated Diagnosis Comments CBC WITH PLATELETS & DIFFERENTIAL Routine 08/05/2023 2:44 PM CURATOR OF MANUSCRIPTS ERYTHROCYTE SEDIMENTATION RATE AUTO Routine 08/05/2023 2:44 PM CURATOR OF MANUSCRIPTS CRP INFLAMMATION Routine 08/05/2023 2:44 PM CURATOR OF MANUSCRIPTS COMPREHENSIVE METABOLIC PANEL Routine 08/05/2023 2:44 PM CURATOR OF MANUSCRIPTS documented in this encounter Results * (ABNORMAL) Comprehensive metabolic panel (08/05/2023 2:44 PM CURATOR OF MANUSCRIPTS) Sodium (External) 139 135 - 149 mmol/L [...] BLOOD SPECIMEN / Unknown 08/05/2023 2:44 PM CURATOR OF MANUSCRIPTS Calli MCKAY PFT - 08/08/2023 10:56 AM CURATOR OF MANUSCRIPTS Verified by Hilario Stevenson on 08/08/2023. us Provider Outside LAB - BLOOD ORDERABLES Edited R esult - Final WOODY PFT NON-INTERFACED (ONBASE SCANS) * (ABNORMAL) CRP inflammation (08/05/2023 2:44 PM CURATOR OF MANUSCRIPTS) CRP Inflammation (External) <0.5(L) 0.5 - 1.0 mg/dL NON-INTERFACE D (ONBASE SCANS) Blood BLOOD SPECIMEN / Unknown 08/05/2023 2:44 PM CURATOR OF MANUSCRIPTS Calli MCKAY PFT - 08/08/2023 10:56 AM CURATOR OF MANUSCRIPTS Verified by Hilario Stevenson on 08/08/2023. Provider Outside LAB - BLOOD ORDERABLES Edited R [facility] WOODY PFT NON-INTERFACED (ONBASE SCANS) * Erythrocyte sedimentation rate auto (08/05/2023 2:44 PM CURATOR OF MANUSCRIPTS) Pathologist [facility] ESR (External) 7 2 - 20 mm/hr NON-INTERFACED (ONBASE SCANS) Blood BLOOD SPECIMEN / Unknown 08/05/2023 2:44 PM CURATOR OF MANUSCRIPTS Narrative LYRICE PFT - 08/08/2023 10:56 AM CURATOR OF MANUSCRIPTS Verified by Hilario Stevenson on 08/08/2023. Provider Outside LAB - BLOOD ORDERABLES Edited R [facility] [employer] Performing Organization Address City/[facility] Co de Phone Number WOODY PFT NON-INTERFACED (ONBASE SCANS) * CBC with Platelets & Differential (08/05/2023 2:44 PM CURATOR OF MANUSCRIPTS) WBC Count (External) 5.07 4.50 - 11.00 [...] BLOOD SPECIMEN / Unknown 08/05/2023 2:44 PM CURATOR OF MANUSCRIPTS Narrative WOODY JOHNSTON - 08/08/2023 10:56 AM CURATOR OF MANUSCRIPTS Verified by Hilario Stevenson on 08/08/2023. us Provider Outside LAB - BLOOD ORDERABLES Edited R esult - Final WOODY JOHNSTON NON-INTERFACED (ONBASE SCANS) documented in this encounter Visit Diagnoses Not on filedocumented in this encounter Additional Health Concerns Assessment Noted Time PHQ-9 Depression Total Score: 4 12/25/19 23 2:25 PM CDT documented as of this encounter Care Teams Supervisor Fireworks Assembly Relationship Specialty Start Date End Date Luis Ambriz MD [facility] [address] [place] [address] PCP - General Family Medicine 02/16/22 Bola Amor, GEOMAGNETIST, LADC [address] [facility] [address] [place] [address] Assigned Behavioral Health Provider 12/04/21 06/27/24 Shaan Ramirez MD [address] [place] [address] Assigned Surgical Provider 12/04/[address] MD [facility] [address] [place] [address] Assigned Rheumatology Provider 02/25/22 02/25/24 Nini Patten MD [address] [place] [address] Endocrinology, Diabetes, and Metabolism 08/29/22 Nini Patten MD [address] [place] [address] Assigned Endocrinology Provider 01/20/23 11/25/24 [facility] 08/10/23 Adria Cisneros MD [address] [place] [address] Rheumatology 11/09/23 Adria Cisneros MD [address] [place] [address] 70[address] Rheumatology 11/09/23 Adria Cisneros MD [address] [place] [address]42 Assigned Rheumatology Provider 02/26/24 Margaret Reyes [facility] Assigned MTM Pharmacist 06/28/24 Adria Cisneros MD [address] [place] [address]96 Rheumatology 08/01/24 documented as of this encounter
--- OUTSIDE RECORDS SUMMARY | 2025-02-03 01:57 | XMS_ITS | Encounter Summary ---
Author Organization [place] Address [address] [place] [address] Care Team Providers Care It Field Technician Name Role Phone Zuleyma Christalromancamila Naranjo [facility], [facility] Unavailable [phone] Shaan Ramirez MD Unavailable [phone] Luis Ambriz MD Primary Care Provider [phone] MD Unavailable [phone] Nini Patten MD Unavailable [phone] Nini Patten MD Unavailable [phone] Margaret Reyes [facility] Unavailable Unavailable Adria Cisneros MD Unavailable [phone] Adria Cisneros MD Unavailable [phone] Adria Cisneros MD Unavailable [phone] Margaret Reyes [facility] Unavailable Unavailable Adria Cisneros MD Unavailable [phone] Encounter Details Date Type Department Care Team (Late st Contact Info) Description 12/12/2021 [facility] [place] [facility] Eye [place] 555596 [facility] [address] Clin [address] [place] [address] Shaan Ramirez MD [address] [place] [address] 922225 Social History Tobacco Use Types Packs/Day Years [...] Description 02/09/2025 10:00 AM CDT Office Visit [facility] [address] 9[facility] Clin [address]A [place] [address] Shaan Ramirez MD [address] [place] [address] 03/09/2025 2:00 PM CDT Virtual Visit [facility] [address] [place] [address] Adria Cisneros MD [address] [place] [address] documented as of this encounter Visit Diagnoses Not on filedocumented in this encounter Additional Health Concerns Assessment Noted Time PHQ-9 Depression Total Score: 10 022 12:04 PM CDT documented as of this encounter Care Teams It Field Technician Relationship Specialty Start Date End Date Luis Ambriz MD [facility] [address] [place] [address] PCP - General Family Medicine 02/16/22 Bola Amor, WELL DRILL OPERATOR CABLE TOOL, LADC [address] [facility] 180 [place] [address] Assigned Behavioral Health Provider 12/04/21 06/27/24 Shaan Ramirez MD [address] [place] [address]105 Assigned Surgical Provider 12/04/[address] MD [facility] [address] [place] [address] Assigned Rheumatology Provider 02/25/22 02/25/24 Nini Patten MD [address] [place] [address] Endocrinology, Diabetes, and Metabolism 08/29/22 Nini Patten MD [address] [place] [address] Assigned Endocrinology Provider 01/20/23 11/25/24 Margaret Reyes [facility] Pharmacist 08/10/23 Adria Cisneros MD [address] [place] [address] Rheumatology 11/09/23 Adria Cisneros MD [address] [place] [address] Rheumatology 11/09/23 Adria Cisneros MD [address] [place] [address]6712 Assigned Rheumatology Provider 02/26/24 Margaret Reyes [facility] Assigned MTM Pharmacist 06/28/24 Adria Cisneros MD [address] [place] [address] 24070 Rheumatology 08/01/24 documented as of this encounter
--- OUTSIDE RECORDS SUMMARY | 2025-02-03 01:57 | XMS_ITS | Encounter Summary ---
Author Organization [place] Address [address] [place] [address] Care Team Providers Care Manager Of Community Relations Name Role Phone ZuleymaBola [facility] Unavailable [phone] Shaan Ramirez MD Unavailable [phone] Luis Ambriz MD Primary Care Provider [phone] Nini Patten MD Unavailable [phone] Nini Patten MD Unavailable [phone] Margaret Reyes [facility] Unavailable Unavailable Adria Cisneros MD Unavailable [phone] Adria Cisneros MD Unavailable [phone] Adria Cisneros MD Unavailable [phone] Margaret Reyes [facility] Unavailable Unavailable Adria Cisneros MD Unavailable [phone] Encounter Details Date Type Department Care Team (Late st Contact Info) Description 05/14/2024 [facility] Rheumatology Clinic [address] [address] Margaret Reyes, [facility] [...] Description 02/09/2025 10:00 AM CDT Office Visit [facility] 516 [facility] 9th Fl Clin [address] [place] [address] Shaan Ramirez MD [address] [place] [address] 321755 03/09/2025 2:00 PM CDT Virtual Visit [place] [address] [address] [place] [address] Adria Cisneros MD [address] [place] [address] 88 [place], [place] 7[address]45 documented as of this encounter Visit Diagnoses Not on filedocumented in this encounter Additional Health Concerns Assessment Noted Time PHQ-9 Depression Total Score: 4 12/25/19 23 2:25 PM CDT documented as of this encounter Care Teams Manager Of Community Relations Relationship Specialty Start Date End Date Luis Ambriz MD [facility] [address] [place] [address] PCP - General Family Medicine 02/16/22 Bola Amor, PLANNING MANAGEMENT IT SPECIALIST, [facility] [address] [facility] 180 [place], [place] [address] Assigned Behavioral Health Provider 12/04/21 06/27/24 Shaan Ramirez MD [address] [place] [address] [id number] Assigned Surgical Provider 12/04/21 Nini Patten MD [address] [place] [address] Endocrinology, Diabetes, and Metabolism 08/29/22 Nini Patten MD [address] [place] [address] Assigned Endocrinology Provider 01/20/23 11/25/24 Margaret Reyes [facility] Pharmacist 08/10/23 Adria Cisneros MD [address] [place] [address] Rheumatology 11/09/23 Adria Cisneros MD [address] [place] [address] Rheumatology 11/09/23 Adria Cisneros MD [address] [place] [address]14[address] Assigned Rheumatology Provider 02/26/24 Margaret Reyes [facility] Assigned MTM Pharmacist 06/28/24 Adria Cisneros MD [address] [place] [address] Rheumatology 08/01/24 documented as of this encounter
--- OUTSIDE RECORDS SUMMARY | 2025-02-03 01:57 | XMS_ITS | Clinical Summary ---
Author Organization [place] Address [address] [place] [address] Care Team Providers Care Relay Worker Name Role Phone Shaan Ramirez MD Unavailable [phone] Luis Ambriz MD Primary Care Provider [phone] Nini Patten MD Unavailable [phone] EricMargaret comer [facility] Unavailable Unavailable Adria Cisneros MD Unavailable [phone] Adria Cisneros MD Unavailable [phone] Adria Cisneros MD Unavailable [phone] EricMargaret comer [facility] Unavailable Unavailable Adria Cisneros MD Unavailable [phone] Allergies Active Allergy Reactions Criticality Noted Date [...] Description 01/21/2025 1:00 PM CDT Virtual Visit [facility] Rheumatology [facility] 909 [facility] 3rd [place] [address] Adria Cisneros MD Eric, Margaret Naranjo, [facility] Hidradenitis suppurativa (Primary Dx); Psoriasis; Intermediate uveitis of both eyes; Vaccine counseling 01/16/2025 [facility] [address] [place] [address] Mecca Vogel from Last 3 Months Immunizations [...] 106.6 kg (235 lb) 08/01/2024 7:40 AM BAR[facility] RE[facility]ER Height 167.6 cm (5' 6) 08/01/2024 7:40 AM [facility] Body Mass Index 37.93 08/01/2024 7:40 AM [facility] RE[facility] Plan of Treatment Upcoming Encounters Date Type Department Care Team (Late st Contact Info) Description 02/09/2025 10:00 AM CDT Office Visit [facility] [address] 9[facility] Clin 9A [place] [address] Shaan Ramirez MD [address] [place] [address] 03/09/2025 2:00 PM CDT Virtual Visit [address] [place] [address] Adria Cisneros MD [address] [place] [address] Health Maintenance Due Date Last Done [...] BLOOD ORDERABLES Maisha ibarra Result [facility] [place] Core Lab [address] [facility], Room [address] [place] [address], [facility] * Hepatitis C antibody (01/14/2024 11:14 AM CDT) Pathologist [facility] Hepatitis C Antibody Nonreactive Nonreactive [...] - BLOOD ORDERABLES Maisha l Result LABORATORY [facility] Core Lab [address] [facility], Room [address] [place], [place] [address] * (ABNORMAL) Comprehensive metabolic panel (01/14/2024 11:14 AM CDT) [facility] Sodium 137 135 - 145 mmol/L 01/14/2024 11:39 AM CDT [facility] - [facility]ORE LAB [...] - 5.3 mmol/L 01/14/2024 11:39 AM CDT [facility] Carbon Dioxide (CO2) 22 22 - 29 mmol/L 01/14/2024 11:39 AM CDT [facility] Anion Gap 11 7 - 15 mmol/L 01/14/2024 11:39 AM CDT [facility] Urea Nitrogen 10.4 6.0 - 20.0 mg/dL 01/14/2024 11:39 AM T [facility] Creatinine 0.80 0.51 - 0.95 mg/dL 01/14/2024 11:39 AM CDT [facility] GFR Estimate >90 >60 mL/min/1. 73m2 01/14/2024 11:39 AM CDT [facility] Calcium 9.6 8.6 - 10.0 mg/dL 01/14/2024 11:39 AM CDT [facility] Chloride 104 98 - 107 mmol/L 01/14/2024 11:39 AM CDT [facility] Glucose 99 70 - 99 mg/dL 01/14/2024 11:39 AM CDT [facility] Alkaline Phosphatase 66 40 - 150 U/L 01/14/2024 11:39 AM CDT [facility] AST 33 0 - 45 U/L 01/14/2024 11:39 AM CDT [facility] LAB [...] - 50 U/L 01/14/2024 11:39 AM CDT [facility] [...] - 8.3 g/dL 01/14/2024 11:39 AM CDT [facility] Albumin 4.2 3.5 - 5.2 g/dL 01/14/2024 11:39 AM CDT [facility] Bilirubin Total 1.3(H) <=1.2 mg/dL 01/14/2024 11:39 AM CDT [facility] Patient Fasting > 8hrs? No 01/14/2024 11:39 AM CDT [facility] Blood STRUCTURE OF LEFT HAND / Unknown Venipuncture / Unknown 01/14/2024 11:14 AM CDT 01/14/2024 11:14 AM CDT us Shaan Ramirez MD LAB - BLOOD ORDERABLES Final Result [facility] [place] [address] [place] [address] 1st [place] [address] * Albumin Random Urine Quantitative with Creat [...] control, and institution of therapy with an ulfigzmvjvw-wvfmkqhqjl-ykondd (ROBERTO) inhibitor (if the patient can tolerate it). Urine MID-STREAM URINE SPECIMEN / Unknown Non-blood Collection / Unknown 02/02/2023 11:59 AM CDT 02/02/2023 11:59 AM CDT us Nini Patten MD LAB - URINE ORDERABLES Final Result [facility] [place] Core Lab 500 [facility], Room 3-[address] [place] [address], [facility] [phone] * HIV Antigen Antibody Combo (12/30/2021 9:15 [...] Most Recently Relevant to Health Maintenance Insurance [facility] [facility] COMMERCIAL [facility] * Guarantor: Amelia Sr Account Type Relation to Patient Date of Phone Billing Address Medication Therapy Self [address] [place] [address] [place] [employer] Care Teams Relay Worker Relationship Specialty Start Date End Date Luis Ambriz MD [facility] [address] [place] [address] PCP - General Family Medicine 02/16/22 Shaan Ramirez MD [address] [place] [address] Assigned Surgical Provider 12/04/21 Nini Patten MD [address] [place] [address] Endocrinology, Diabetes, and Metabolism 08/29/22 Margaret Reyes [facility] Pharmacist 08/10/23 Adria Cisneros MD [address] [place] [address] Rheumatology 11/09/23 Adria Cisneros MD [address] [place] [address] 19450 Rheumatology 11/09/23 Adria Cisneros MD [address] [place] [address] 56155 Assigned Rheumatology Provider 02/26/24 Margaret Reyes [facility] Assigned MTM Pharmacist 06/28/24 Adria Cisneros MD [address] [place] [address] 084075 Rheumatology 08/01/24
--- OUTSIDE RECORDS SUMMARY | 2025-02-03 01:57 | XMS_ITS | Encounter Summary ---
Author Organization [place] Address [address] [place] [address] Care Team Providers Care Justice Professor Name Role Phone ZuleymaBola [facility], [facility] Unavailable +[phone] Shaan Ramirez MD Unavailable [phone] Luis Ambriz MD Primary Care Provider [phone] MD Unavailable [phone] Nini Patten MD Unavailable [phone] Nini Patten MD Unavailable [phone] Margaret Reyes [facility] Unavailable Unavailable Adria Cisneros MD Unavailable [phone] Adria Cisneros MD Unavailable [phone] Adria Cisneros MD Unavailable [phone] Margaret Reyes [facility] Unavailable Unavailable Adria Cisneros MD Unavailable [phone] Encounter Details Date Type Department Care Team (Late st Contact Info) Description 05/02/2023 [facility] Medical [facility] Endocrinology Clinic [address] [place] [address] Baljinder Friend Social History Tobacco [...] 02/09/2025 10:00 AM CDT Office [facility] Eye [facility] [address] [facility] 9th Fl Clin 9A [place] [address] Shaan Ramirez MD 6 [place], [place] 747045 03/09/2025 2:00 PM CDT Virtual Visit [address] [place] [address] Adria Cisneros MD 515 [facility] 88 [place], [place] 391485 documented as of this encounter Visit Diagnoses Not on filedocumented in this encounter Additional Health Concerns Assessment Noted Time PHQ-9 Depression Total Score: 4 12/25/19 23 2:25 PM CDT documented as of this encounter Care Teams Justice Professor Relationship Specialty Start Date End Date Luis Ambriz MD [facility] [address] [place] [address] PCP - General Family Medicine 02/16/22 Bola Amor, RN L AND D, [facility] [address] [place] 180 [place] [address] Assigned Behavioral Health Provider 12/04/21 06/27/24 Shaan Ramirez MD [address] [place] [address] [phone] Assigned Surgical Provider 12/04/[address] MD [facility] [address] [place] [address] Assigned Rheumatology Provider 02/25/22 02/25/24 Nini Patetn MD [address] [place] [address] Endocrinology, Diabetes, and Metabolism 08/29/22 Nini Patten MD [address] [place] [address] 711775 Assigned Endocrinology Provider 01/20/23 11/25/24 Margaret Reyes [facility] Pharmacist 08/10/23 Adria Cisneros MD [address] [place] [address] Rheumatology 11/09/23 Adria Cisneros MD [address] [place] [address]37 Rheumatology 11/09/23 Adria Cisneros MD [address] [place] [address] Assigned Rheumatology Provider 02/26/24 Margaret Reyes [facility] Assigned MTM Pharmacist 06/28/24 Adria Cisneros MD [address] [place] [address]76 Rheumatology 08/01/24 documented as of this encounter
--- OUTSIDE RECORDS SUMMARY | 2025-02-03 01:57 | XMS_ITS | Encounter Summary ---
Author Organization [place] Address [address] [place] [address] Care Team Providers Care Load Dispatcher Local Name Role Phone Shaan Ramirez MD Unavailable [phone] Luis Ambriz MD Primary Care Provider [phone] Nini Patten MD Unavailable [phone] Nini Patten MD Unavailable [phone] Margaret Reyes [facility] Unavailable Unavailable Adria Cisneros MD Unavailable [phone] Adria Cisneros MD Unavailable [phone] Adria Cisneros MD Unavailable [phone] Margaret Reyes [facility] Unavailable Unavailable Adria Cisneros MD Unavailable [phone] Encounter Details Date Type Department Care Team (Late st Contact Info) Description 08/19/2024 [facility] Medical Advice [facility] Rheumatology Clinic [address] [address] Adria Cisneros MD [address] [place] [address] Social History Tobacco Use Types Packs/Day [...] Description 02/09/2025 10:00 AM CDT Office Visit [facility] Eye [address] 9th La Clin 9A [place] [address] Shaan Ramirez MD [address] [place] [address] 132175 03/09/2025 2:00 PM CDT Virtual Visit [place] [address] [place] [address] Adria Cisneros MD [address] [place] [address] 369405 documented as of this encounter Visit Diagnoses Not on filedocumented in this encounter Additional Health Concerns Assessment Noted Time PHQ-9 Depression Total Score: 5 08/01/20 24 7:42 AM PHYSICAL THERAPY PROFESSOR documented as of this encounter Care Teams Load Dispatcher Local Relationship Specialty Start Date End Date Luis Ambriz MD [facility] [address] [place] [address] PCP - General Family Medicine 02/16/22 Shaan Ramirez MD [address] [place] [address] 228585 Assigned Surgical Provider 12/04/21 Nini Patten MD [address] [place] [address] 912335 Endocrinology, Diabetes, and Metabolism 08/29/22 Nini Patten MD [address] [place] [address] Assigned Endocrinology Provider 01/20/23 11/25/24 Margaret Reyes [facility] Pharmacist 08/10/23 Adria Cisneros MD [address] [place] [address] Rheumatology 11/09/23 Adria Cisneros MD [address] [place] [address] 21140 Rheumatology 11/09/23 Adria Cisneros MD [address] [place] [address] Assigned Rheumatology Provider 02/26/24 Margaret Reyes [facility] Assigned MTM Pharmacist 06/28/24 Adria Cisneros MD [address] [place] [address] 28[address] Rheumatology 08/01/24 documented as of this encounter
--- OUTSIDE RECORDS SUMMARY | 2025-02-03 01:57 | XMS_ITS | Encounter Summary ---
Author Organization [place] Address [address] [place] [address] Care Team Providers Care Morning Show Host Name Role Phone ZuleymaChristalromancamila Naranjo [facility], [facility] Unavailable [phone] Shaan Ramirez MD Unavailable [phone] Luis Ambriz MD Primary Care Provider [phone] MD Unavailable [phone] Nini Patten MD Unavailable [phone] Nini Patten MD Unavailable [phone] Margaret Reyes [facility] Unavailable Unavailable Adria Cisneros MD Unavailable [phone] Adria Cisneros MD Unavailable [phone] Adria Cisneros MD Unavailable [phone] Margaret Reyes [facility] Unavailable Unavailable Adria Cisneros MD Unavailable [phone] Reason for Visit * Reason Onset Date Comments Vision Changes Ou 12/21/2021 Encounter Details Date Type Department Care Team (Late st Contact Info) Description 12/21/2021 [facility] Medical [facility] Eye [address] Clin 9A [place] [address] Shaan Ramirez MD [address] [place] [address] Vision Changes Ou Social History Tobacco [...] Description 02/09/2025 10:00 AM CDT Office Visit [facility] Eye [address] 9[facility] Clin 9A [place] [address] Shaan Ramirez MD [address] [place] [address] 03/09/2025 2:00 PM CDT Virtual Visit [address] [place] [address] Adria Cisneros MD [address] [place] [address] 638635 documented as of this encounter Visit Diagnoses Diagnosis Intermediate uveitis of both eyes documented in this encounter Additional Health Concerns Assessment Noted Time PHQ-9 Depression Total Score: 10 022 12:04 PM CDT documented as of this encounter Care Teams Morning Show Host Relationship Specialty Start Date End Date Luis Ambriz MD [facility] [address], [place] [address] PCP - General Family Medicine 02/16/22 Bola Amor, [facility], [facility] [address] [place] [address] Assigned Behavioral Health Provider 12/04/21 06/27/24 Shaan Ramirez MD [address] [place] [place] [address] Assigned Surgical Provider 12/04/[address] MD [facility] [address], [place] [address] Assigned Rheumatology Provider 02/25/22 02/25/24 Nini Patten MD [address] [place] [address] Endocrinology, Diabetes, and Metabolism 08/29/22 Nini Patten MD [address] [place] [address] Assigned Endocrinology Provider 01/20/23 11/25/24 Margaret Reyes, [facility] Pharmacist 08/10/23 Adria Cisneros MD [address] [place] [address] 99383 Rheumatology 11/09/23 Adria Cisneros MD [address] [place] [address] 70678 Rheumatology 11/09/23 Adria Cisneros MD [address] [place] [address] 37066 Assigned Rheumatology Provider 02/26/24 Margaret Reyes, [facility] Assigned MTM Pharmacist 06/28/24 Adria Cisneros MD [address] [place] [address]761 Rheumatology 08/01/24 documented as of this encounter
--- OUTSIDE RECORDS SUMMARY | 2025-02-03 01:57 | XMS_ITS | Encounter Summary ---
Author Organization [place] Address [address] [place] [address] Care Team Providers Care Aeronautical Engineer Name Role Phone Shaan Ramirez MD Unavailable [phone] Luis Ambriz MD Primary Care Provider [phone] Nini Patten MD Unavailable [phone] Nini Patten MD Unavailable [phone] Margaret Reyes [facility] Unavailable Unavailable Adria Cisneros MD Unavailable [phone] Adria Cisneros MD Unavailable [phone] Adria Cisneros MD Unavailable [phone] Margaret Reyes [facility] Unavailable Unavailable Adria Cisneros MD Unavailable [phone] Encounter Details Date Type Department Care Team (Late st Contact Info) Description 09/17/2024 [facility] Medical Advice [facility] Rheumatology Clinic [address] [address] Adria Cisneros MD [address] [place] [address] Social History Tobacco Use Types Packs/Day [...] Description 02/09/2025 10:00 AM CDT Office Visit [facility] Eye [address] 9th [place] Clin 9A [place] [address] Shaan Ramirez MD [address] [place] [address] 768835 03/09/2025 2:00 PM CDT Virtual Visit [place] [address] [place] [address] Adria Cisneros MD [address] [place] [address] 837295 documented as of this encounter Visit Diagnoses Not on filedocumented in this encounter Additional Health Concerns Assessment Noted Time PHQ-9 Depression Total Score: 5 08/01/20 24 7:42 AM PSYCHOTHERAPIST COUNSELOR documented as of this encounter Care Teams Aeronautical Engineer Relationship Specialty Start Date End Date Luis Ambriz MD [facility] [address] [place] [address] PCP - General Family Medicine 02/16/22 Shaan Ramirez MD [address] [place] [address] 120305 Assigned Surgical Provider 12/04/21 Nini Patten MD [address] [place] [address] 419755 Endocrinology, Diabetes, and Metabolism 08/29/22 Nini Patten MD [address] [place] [address] Assigned Endocrinology Provider 01/20/23 11/25/24 Margaret Reyes [facility] Pharmacist 08/10/23 Adria Cisneros MD [address] [place] [address] 36959 Rheumatology 11/09/23 Adria Cisneros MD [address] [place] [address] 81120 Rheumatology 11/09/23 Adria Cisneros MD [address] [place] [address] 17841 Assigned Rheumatology Provider 02/26/24 Margaret Reyes [facility] Assigned MTM Pharmacist 06/28/24 Adria Cisneros MD [address] [place] [address] 45562 Rheumatology 08/01/24 documented as of this encounter
--- OUTSIDE RECORDS SUMMARY | 2025-02-03 01:57 | XMS_ITS | Encounter Summary ---
Author Organization [place] Address [address] [place] [address]012 Care Team Providers Care Sports Marketer Name Role Phone Shaan Ramirez MD Unavailable [phone] Luis Ambriz MD Primary Care Provider [phone] Nini Patten MD Unavailable [phone] Margaret Reyes [facility] Unavailable Unavailable Adria Cisneros MD Unavailable [phone] Adria Cisneros MD Unavailable [phone] Adria Cisneros MD Unavailable [phone] Margaret Reyes [facility] Unavailable Unavailable Adria Cisneros MD Unavailable [phone] Encounter Details Date Type Department Care Team (Late st Contact Info) Description 01/16/2025 [facility] [address] [place] [address] Mecca Vogel Social History Tobacco Use Types [...] AM CDT Office Visit [facility] 516 [facility] 9th Fl Clin 9A [place] [address] Shaan Ramirez MD [address] [place] [address] 03/09/2025 2:00 PM CDT Virtual Visit [facility] [address] [place] [address] Adria Cisneros MD [address] [place] [address] documented as of this encounter Visit Diagnoses Not on filedocumented in this encounter Additional Health Concerns Assessment Noted Time PHQ-9 Depression Total Score: 5 08/01/20 24 7:42 AM FITNESS AND WELLNESS MANAGER documented as of this encounter Care Teams Sports Marketer Relationship Specialty Start Date End Date Luis Ambriz MD [facility] [address] [place] [address] PCP - General Family Medicine 02/16/22 Shaan Ramirez MD [address] [place] [address]996 Assigned Surgical Provider 12/04/21 Nini Patten MD [address] [place] [address] Endocrinology, Diabetes, and Metabolism 08/29/22 Margaret Reyes, [facility] Pharmacist 08/10/23 Adria Cisneros MD [address] [place] [address] Rheumatology 11/09/23 Adria Cisneros MD [address] [place] [address] 38311 Rheumatology 11/09/23 Adria Cisneros MD [address] [place] [address] 76041 Assigned Rheumatology Provider 02/26/24 Margaret Reyes [facility] Assigned MTM Pharmacist 06/28/24 Adria Cisneros MD [address] [place] [address] 66182 Rheumatology 08/01/24 documented as of this encounter
--- OUTSIDE RECORDS SUMMARY | 2025-02-03 01:57 | XMS_ITS | Encounter Summary ---
Author Organization [place] Address [address] [place] [address] Care Team Providers Care Group Sales Representative Name Role Phone Zuleyma Christalromancamila Naranjo [facility], [facility] Unavailable [phone] Shaan Ramirez MD Unavailable [phone] Lusi Ambriz MD Primary Care Provider [phone] MD Unavailable [phone] Nini Patten MD Unavailable [phone] Nini Patten MD Unavailable [phone] Margaret Reyes [facility] Unavailable Unavailable Adria Cisneros MD Unavailable [phone] Adria Cisneros MD Unavailable [phone] Adria Cisneros MD Unavailable [phone] Margaret Reyes [facility] Unavailable Unavailable Adira Cisneros MD Unavailable [phone] Encounter Details Date Type Department Care Team (Late st Contact Info) Description 11/29/2021 [facility] Eye [place] 055696 [facility] 9 Mt Clin 9A [place] [address] Shaan Ramirez MD [address] [place] [address] 955275 Social History Tobacco Use Types Packs/Day Years [...] Description 02/09/2025 10:00 AM CDT Office Visit [address] 9[facility] Clin 9A [place] [address] Shaan Ramirez MD [address] [place] [address] 703355 03/09/2025 2:00 PM CDT Virtual Visit [address] [address] Adria Cisneros MD [address] [place] [address] documented as of this encounter Visit Diagnoses Not on filedocumented in this encounter Additional Health Concerns Assessment Noted Time PHQ-9 Depression Total Score: 6 11/25/19 22 7:04 AM CDT documented as of this encounter Care Teams Group Sales Representative Relationship Specialty Start Date End Date Luis Ambriz MD [facility] [address] [place] [address] PCP - General Family Medicine 02/16/22 Bola Amor, FIRE FIGHTER [employer], [facility] [address] [facility] [address] [place] [address] Assigned Behavioral Health Provider 12/04/21 06/27/24 Shaan Ramirez MD [address] [place] [address] 39990 Assigned Surgical Provider 12/04/[address] MD [facility] [address] [place] [address] Assigned Rheumatology Provider 02/25/22 02/25/24 Nini Patten MD [address] [place] [address] Endocrinology, Diabetes, and Metabolism 08/29/22 Nini Patten MD [address] [place] [address] 47484 Assigned Endocrinology Provider 01/20/23 11/25/24 [facility] 08/10/23 Adria Cisneros MD [address] [place] [address]55 Rheumatology 11/09/23 Adria Cisneros MD [address] [place] [address] 26437 Rheumatology 11/09/23 Adria Cisneros MD [address] [place] [address] 31652 Assigned Rheumatology Provider 02/26/24 Margaret Reyes [facility] Assigned MTM Pharmacist 06/28/24 Adria Cisneros MD [address] [place] [address] 52842 Rheumatology 08/01/24 documented as of this encounter
--- OUTSIDE RECORDS SUMMARY | 2025-02-03 01:57 | XMS_ITS | Encounter Summary ---
Author Organization [place] Address [address] [place] [address]326 Care Team Providers Care Job Lithographer Name Role Phone ZuleymaBola [facility], [facility] Unavailable [phone] Shaan Ramirez MD Unavailable [phone] Luis Ambriz MD Primary Care Provider [phone] MD Unavailable [phone] Nini Patten MD Unavailable [phone] Nini Patten MD Unavailable [phone] Margaret Reyes [facility] Unavailable Unavailable Adria Cisneros MD Unavailable [phone] Adria Cisneros MD Unavailable [phone] Adria Cisneros MD Unavailable [phone] Margaret Reyes [facility] Unavailable Unavailable Adria Cisneros MD Unavailable [phone] Encounter Details Date Type Department Care Team (Late st Contact Info) Description 12/22/[address] [address] Baljinder Friend Social History Tobacco [...] Description 02/09/2025 10:00 AM CDT Office Visit [facility] Eye [facility] 516 [facility] 9th Fl Clin 9A [place] [address] Shaan Ramirez MD [address] [place] [address] 890685 03/09/2025 2:00 PM CDT Virtual Visit [facility] [address] [place] [address] Adria Cisneros MD 515 [facility] 88 [place], [place] 8776[address] documented as of this encounter Visit Diagnoses Not on filedocumented in this encounter Additional Health Concerns Assessment Noted Time PHQ-9 Depression Total Score: 10 022 12:04 PM CDT documented as of this encounter Care Teams Job Lithographer Relationship Specialty Start Date End Date Luis Ambriz MD [facility] [address] [place] [address] PCP - General Family Medicine 02/16/22 Bola Amor LMFT, [facility] [address] [facility] 180 [place] [address] Assigned Behavioral Health Provider 12/04/21 06/27/24 Shaan Ramirez MD [address] [place] [address]26 Assigned Surgical Provider 12/04/[address] MD [facility] [address] [place] [address] Assigned Rheumatology Provider 02/25/22 02/25/24 Nini Patten MD [address] [place] [address] Endocrinology, Diabetes, and Metabolism 08/29/22 Nini Patten MD [address] [place] [address] Assigned Endocrinology Provider 01/20/23 11/25/24 Margaret Reyes [facility] Pharmacist 08/10/23 Adria Cisneros MD [address] [place] [address] Rheumatology 11/09/23 Adria Cisneros MD [address] [place] [address] 21511 Rheumatology 11/09/23 Adria Cisneros MD [address] [place] [address] 53483 Assigned Rheumatology Provider 02/26/24 Margaret Reyes [facility] Assigned MTM Pharmacist 06/28/24 Adria Cisneros MD [address] [place] [address] 88365 Rheumatology 08/01/24 documented as of this encounter
--- OUTSIDE RECORDS SUMMARY | 2025-02-03 01:57 | XMS_ITS | Encounter Summary ---
Author Organization [place] Address [address] [place] [address]609 Care Team Providers Care Chronic Disease Manager Name Role Phone Shaan Ramirez MD Unavailable [phone] Luis Ambriz MD Primary Care Provider [phone] Nini Patten MD Unavailable [phone] Nini Patten MD Unavailable [phone] Margaret Reyes [facility] Unavailable Unavailable Adria Cisneros MD Unavailable [phone] Adria Cisneros MD Unavailable [phone] Adria Cisneros MD Unavailable [phone] Margaret Reyes [facility] Unavailable Unavailable Adria Cisneros MD Unavailable [phone] Encounter Details Date Type Department Care Team (Late st Contact Info) Description 10/01/2024 [facility] [address] [place] [address] [facility] Social History Tobacco Use Types [...] Description 02/09/2025 10:00 AM CDT Office Visit [facility] 516 [facility] 9th Fl Clin 9[address] [place] [address] Shaan Ramirez MD 6 [place] [address] 03/09/2025 2:00 PM CDT Virtual Visit [place] [address] [place] [address] Adria Cisneros MD [address] [place] [address] documented as of this encounter Visit Diagnoses Not on filedocumented in this encounter Additional Health Concerns Assessment Noted Time PHQ-9 Depression Total Score: 5 08/01/20 24 7:42 AM AUDIO VISUAL DIRECTOR documented as of this encounter Care Teams Chronic Disease Manager Relationship Specialty Start Date End Date Luis Ambriz MD [facility] [address] [place] [address] PCP - General Family Medicine 02/16/22 Shaan Ramirez MD [address] [place] [address]46[address] Assigned Surgical Provider 12/04/21 Nini Patten MD [address] [place] [address]25 Endocrinology, Diabetes, and Metabolism 08/29/22 Nini Patten MD [address] [place] [address] 36464 Assigned Endocrinology Provider 01/20/23 11/25/24 Margaret Reyes [facility] Pharmacist 08/10/23 Adria Cisneros MD [address] [place] [address] 47109 Rheumatology 11/09/23 Adria Cisneros MD [address] [place] [address] 34640 Rheumatology 11/09/23 Adria Cisneros MD [address] [place] [address] 84936 Assigned Rheumatology Provider 02/26/24 Margaret Reyes [facility] Assigned MTM Pharmacist 06/28/24 Adria Cisneros MD [address] [place] [address] 08010 Rheumatology 08/01/24 documented as of this encounter
--- OUTSIDE RECORDS SUMMARY | 2025-02-03 01:57 | XMS_ITS | Clinical Summary ---
Author Organization [facility] Address [address] [place] [address] Care Team Providers Care Housekeeper Home Name Role Phone Luis Ambriz MD Primary Care Provider [phone] Allergies Active Allergy Reactions Criticality Noted Date [...] agreeme nt signed, By Yamilka Zelaya, DNP, CHUTE WORKER, FISH HATCHERY ASSISTANT, psychiatry on 01/21/2024 / Meredith Bedolla LPN 05/13/2024 Overview (05/13/2024): Controlled substance agreement signed 06/09/2021 Overview (06/21/2021): Signed 06-09-2021 Dr. Jennifer Patterson MD Severe episode of recurrent major depressive disorder, without psychotic features PTSD (post-traumatic stress disorder) Attention deficit hyperactiv ity disorder (ADHD), combined type Encounters Date Type Department Care Team Description 01/26/2025 1:30 PM CDT Office Visit [facility] [address] [place] [address] Yamilka Zelaya NP Medication Management (Not sure [...] CDT - 01/26/2025 3:54 AM CDT Emergency [facility] [address] [place] [address] Paul Parmar MD Attention deficit hyperactivity disorder (ADHD), combined type (Primary Dx); PTSD (post-traumatic stress disorder) Discharge Disposition: Home Self Care 01/25/2025 Travel 01/22/2025 10:00 AM CDT Office Visit [facility] [address] [address] Domonique Wilcox MD Derm Problem 01/22/2025 Travel 12/11/2024 1:30 PM CDT Office Visit [facility] [address] [place] [address] Yamilka Zelaya NP Follow Up; Medication Management (struggling with pms more-high level anger a couple days prior to period. other meds seem to be helping) 12/11/2024 Travel 12/08/2024 Refill [facility] [address] [place] [address] Yamilka Zelaya NP Refill Request (Lisdexamfetamine) 11/06/2024 11:00 AM CDT Office Visit [facility] [address] [place] [address] Yamilka Zelaya, JA Medication Management (Things are [...] PM CDT Legal Sex Female 12:55 PM ENROBING MACHINE OPERATOR Gender Identity Female 05/02/2020 12:08 PM CDT Sexual Orientation Bisexual 05/02/2020 12 :08 PM CDT Travel History Travel Start Travel End [place] 01/13/2025 01/14/2025 [place] 01/12/2025 01/12/2025 [place] 01/09/2025 01/11/2025 Obstetrics History Last Filed Vital [...] Description 03/19/2025 9:30 AM CDT Office Visit [facility] [address] [place] [address] Yamilka Zelaya NP [address] [place] [address] 07/27/2025 10:00 AM ENROBING MACHINE OPERATOR Office Visit [facility] [address] [phone] [place] [address] [place] [address] Health Maintenance Due Date Last Done Comments [...] LC LIPID PANEL Routine 08/07/2022 10:04 AM ENROBING MACHINE OPERATOR Other terminal supervisor (current) drug therapy STEAM CONDITIONING OPERATOR THIN PREP PAP SCREEN IMAGED Routine 07/21/2019 5:00 PM ENROBING MACHINE OPERATOR from Last 3 Months or Most Recently Relevant to Health Maintenance Results * (ABNORMAL) LC LIPID PANEL (08/07/2022 10:04 AM ENROBING MACHINE OPERATOR) Cholesterol, Total 215(H) 100 - 199 mg/dL 08/10/2022 4:07 PM ENROBING MACHINE OPERATOR [facility] Triglycerides 209(H) 0 - 149 mg/dL 08/10/2022 4:07 PM ENROBING MACHINE OPERATOR [facility] (CET) HDL Cholesterol 52 >39 mg/dL 4:07 PM [facility] (CET) VLDL Cholesterol Nick 37 5 - 40 mg/dL 08/10/2022 4:07 PM [facility] ([facility]) LDL Chol Calc ([facility]) 126(H) 0 - 99 mg/dL 08/10/2022 4:07 PM [facility] ([facility]ET) Blood BLOOD SPECIMEN / Unknown Butterfly / Unknown 08/07/2022 10:04 AM ENROBING MACHINE OPERATOR 08/07/2022 10:07 AM ENROBING MACHINE OPERATOR Narrative [facility] ([facility]ET) - 08/10/2022 4:07 PM ENROBING MACHINE OPERATOR Performed at: [address] [place] [address] [facility] [address] [place] [id number] Security Assurance Specialist: Ryley [place] MD, Phone: [phone] us Yamilka Zelaya WEIGHMASTER SEND OUTS Final Re sult [facility] (CET) [address] [place] [address], * STEAM CONDITIONING OPERATOR THIN PREP PAP SCREEN IMAGED (07/21/2019 5:00 PM ENROBING MACHINE OPERATOR) Case Report Gynecologic Cytology Report Case: [id number] Authorizing Provider: Luis Ambriz MD Collected: 07/21/2019 1700 Ordering Location: [facility] Received: 07/22/2019 1711 First Screen: Mercedes Guillen Specimen: STEAM CONDITIONING OPERATOR ThinPrep Vial Screening, Cervical/Vaginal 08/04/2019 4:35 PM ENROBING MACHINE OPERATOR [facility] INTERPRETATION/ RESULT NEGATIVE FOR INTRAEPITHELIAL LESION OR MALIGNANCY (NIL) (none) 08/04/2019 4:35 PM ENROBING MACHINE OPERATOR [facility] at 1635 ENROBING MACHINE OPERATOR SPECIMEN ADEQUACY Satisfactory for evaluation Endocervical component present Scant cellularity 08/04/2019 4:35 PM ENROBING MACHINE OPERATOR [facility] HPV REQUEST HPV and PAP 08/04/2019 4:35 PM ENROBING MACHINE OPERATOR [facility] Date of LMP 04/11/2019 08/04/2019 4:35 PM ENROBING MACHINE OPERATOR [facility] Last Pap Date 08/11/2016 08/04/2019 4:35 PM ENROBING MACHINE OPERATOR [facility] Last Pap Result NIL 9 4:35 PM ENROBING MACHINE OPERATOR [facility] Additional Information 08/04/2019 4:35 PM ENROBING MACHINE OPERATOR [facility] Comment: Interpreted at [facility] - [address], [place] [address] Automated Review Successful 08/04/2019 4:35 PM [facility] Comment:Specimen processed s uccessfully by automated digital project coordinator device, ThinPrep Imaging System, [employer] ANCILLARY TESTING STEAM CONDITIONING OPERATOR HPV Ordered, Please see separate report 08/04/2019 4:35 PM ENROBING MACHINE OPERATOR [facility] Note The pap test is a screening technique, not a diagnostic procedure. It is used primarily to screen for squamous cancers and precursor lesions. Published studies have shown that it is subject to both false negative and false positive results. The pap test should not be used as the sole means to diagnose or exclude pre-malignant and malignant lesions. 08/04/2019 4:35 PM [facility] Other (Cervical/Vagina l) 07/21/2019 5:00 PM ENROBING MACHINE OPERATOR 07/22/2019 5:11 PM ENROBING MACHINE OPERATOR us Luis Ambriz MD PATHOLOGY/CYTOLOGY Final Resul t [facility] [address] [place] [address], [place] from Last 3 Months or Most Recently Relevant to Health Maintenance Insurance [facility] Care Teams Housekeeper Home Relationship Specialty Start Date End Date Luis Ambriz MD [address] [place] [address] PCP - General Family Practice 05/11/20
--- OUTSIDE RECORDS SUMMARY | 2025-02-03 01:57 | XMS_ITS | Encounter Summary ---
Author Organization [facility] Address [address] [place] [address] Care Team Providers Care Health And Nutrition Specialist Name Role Phone ZuleymaBola [facility], [facility] Unavailable + [phone] Shaan Ramirez MD Unavailable [phone] Luis Ambriz MD Primary Care Provider [phone] MD Unavailable [phone] Nini Patten MD Unavailable [phone] Nini Patten MD Unavailable [phone] Margaret Reyes [facility] Unavailable Unavailable Adria Cisneros MD Unavailable [phone] Adria Cisneros MD Unavailable [phone] Adria Cisneros MD Unavailable [phone] Margaret Reyes [facility] Unavailable Unavailable Adria Cisneros MD Unavailable [phone] Encounter Details Date Type Department Care Team (Late st Contact Info) Description 12/30/2021 External Order Results [facility] [address] [place] [address] Outside, Provider High risk medication use Social [...] CDT Office Visit [facility] [address] [facility] 9th Wi Clin [address] [place] [address] Shaan Ramirez MD [address] [place] [address] 03/09/2025 2:00 PM CDT Virtual Visit [address] [place] [address] Adria Cisneros MD [address] [place] [address] [phone] documented as of this encounter Procedures Procedure [...] C antibody (12/30/2021 9:15 AM CDT) Pathologist [facility] Hepatitis C Antibody (External) NEGATIVE NEGATIVE NON-INTERFACE D (ONBASE SCANS) Blood 12/30/2021 9:15 AM CDT Narrative WOODY PFT - 12/30/2021 3:39 PM CDT Verified by Deangelo Carlson on 12/30/2021. us Provider Outside LAB - BLOOD ORDERABLES Edited R esult - Final [facility] [place] NON-INTERFACED (ONBASE SCANS) * (ABNORMAL) Comprehensive metabolic panel (12/30/2021 9:15 AM CDT) [facility] ALT (External) 35 4 - 35 U/L [...] SCANS) Blood 12/30/2021 9:15 AM CDT Narrative WODOY PFT - 12/30/2021 3:39 PM CDT Verified [...] as of this encounter Care Teams Health And Nutrition Specialist Relationship Specialty Start Date End Date Luis Ambriz MD [facility] [address] [place] [address] PCP - General Family Medicine 02/16/22 Bola Amor, TRUCK SALES REPRESENTATIVE, [facility] [address] [facility] [address] [place], [place] [phone] Assigned Behavioral Health Provider 12/04/21 06/27/24 Shaan Ramirez MD [address] [place] [address] [id number] Assigned Surgical Provider 12/04/[address] MD [facility] [address] [place] [address] Assigned Rheumatology Provider 02/25/22 02/25/24 Nini Patten MD [address] [place] [address] Endocrinology, Diabetes, and Metabolism 08/29/22 Nini Patten MD [address] [place] [address] Assigned Endocrinology Provider 01/20/23 11/25/24 Margaret Reyes [facility] Pharmacist 08/10/23 Adria Cisneros MD [address] [place] [address] Rheumatology 11/09/23 Adria Cisneros MD [address] [place] [address] Rheumatology 11/09/23 Adria Cisneros MD [address] [place] [address] Assigned Rheumatology Provider 02/26/24 Margaret Reyes [facility] Assigned MTM Pharmacist 06/28/24 Adria Cisneros MD [address] [place] [address] Rheumatology 08/01/24 documented as of this encounter
== END 2025-01-25 22:27 | disposition home or self-care (01) ==
PROVIDERS: PCP Family Medicine; Visit Provider Student in an Organized Health Care Education/Training Program
DX: R45.851 Suicidal ideations (principal)
CPT/HCPCS: A0425; A0427

== ENCOUNTER 2025-03-16 14:21 | Outpatient (CLI) | payer OTHER, SELFPAY ==
[2025-03-18 15:17] LABS: Pap Test Digital Imaging Done
== END 2025-03-16 14:22 | disposition home or self-care (01) ==
PROVIDERS: PCP Family Medicine; Visit Provider Family Medicine
DX: R79.89 Other specified abnormal findings of blood chemistry (principal); R53.83 Other fatigue; I10 Essential (primary) hypertension; E78.00 Pure hypercholesterolemia, unspecified; E11.9 Type 2 diabetes mellitus without complications; D84.9 Immunodeficiency, unspecified; L65.9 Nonscarring hair loss, unspecified; Z79.899 Other long term (current) drug therapy
CPT/HCPCS: 82043; 82570; 84443; 88141; 88142; 88175

== ENCOUNTER 2025-05-18 17:52 | Emergency (ER) | payer OTHER, SELFPAY ==
--- OUTSIDE RECORDS SUMMARY | 2025-05-18 17:54 | XMS_ITS | Encounter Summary ---
Author Organization [place] Address [address] [place] [address] Care Team Providers Care Pattern Chain Maker Supervisor Name Role Phone ZuleymaChristalromancamila Naranjo [facility], [facility] Unavailable [phone] Shaan Ramirez MD Unavailable [phone] Luis Ambriz MD Primary Care Provider [phone] MD Unavailable [phone] Nini Patten MD Unavailable [phone] Nini Patten MD Unavailable [phone] Margaret Reyes [facility] Unavailable Unavailable Adria Cisneros MD Unavailable [phone] Adria Cisneros MD Unavailable [phone] Adria Cisneros MD Unavailable [phone] Margaret Reyes [facility] Unavailable Unavailable Adria Cisneros MD Unavailable [phone] Reason for Visit * Reason Onset Date Comments Vision Changes Ou 12/21/2021 Encounter Details Date Type Department Care Team (Late st Contact Info) Description 12/21/2021 [facility] [address] Md Clin [address] [place] [phone] Shaan Ramirez MD [address] [place] [address] Vision Changes Ou Social History Tobacco [...] Care Team (Late st Contact Info) Description 05/25/2025 11:30 AM CDT Lab [facility] [address] [place] [address] 07/29/2025 8:40 AM NEON INSTALLER Office Visit [facility] - [address] [facility] [address] [place] [address] Kapil Kay MD [facility] [place] [address] 08/25/2025 1:00 PM NEON INSTALLER Lab [facility] [address] [place] [address] 12/08/2025 1:00 PM CDT Virtual Visit [address] [address] Adria Cisneros MD [address] [facility] [address] [place], [place] [address] documented as of this encounter Visit Diagnoses Diagnosis Intermediate uveitis of both eyes documented in this encounter Additional Health Concerns Assessment Noted Time PHQ-9 Depression Total Score: 10 0504/2 022 12:04 PM CDT documented as of this encounter Care Teams Pattern Chain Maker Supervisor Relationship Specialty Start Date End Date Luis Ambriz MD [address] [place] [address] PCP - General Family Medicine 02/16/22 Bola Amor, [facility], [facility] [address] [place] [address] Assigned Behavioral Health Provider 12/04/21 06/27/24 Shaan Ramirez MD [address] [place] [address] Assigned Surgical Provider 12/04/[address] MD [address] [place] [address] Assigned Rheumatology Provider 02/25/22 02/25/24 Nini Patten MD [address] [place] [address] Endocrinology, Diabetes, and Metabolism 08/29/22 Nini Patten MD [address] [place] [address] Assigned Endocrinology Provider 01/20/23 11/25/24 Margaret Reyes, [facility] Pharmacist 08/10/23 Adria Cisneros MD [address] [place] [address] Rheumatology 11/09/23 Adria Cisneros MD [address] [place] [address] Rheumatology 11/09/23 Adria Cisneros MD [address] [place] [address] Assigned Rheumatology Provider 02/26/24 Margaret Reyes [facility] Assigned MTM Pharmacist 06/28/24 Adria Cisneros MD [address] [place] [address] Rheumatology 08/01/24 documented as of this encounter
--- OUTSIDE RECORDS SUMMARY | 2025-05-18 17:54 | XMS_ITS | Encounter Summary ---
Author Organization [place] Address [address] [place] [address] Care Team Providers Care Nitro Worker Name Role Phone ZuleymaBola [facility], [facility] Unavailable + [phone] Shaan Ramirez MD Unavailable [phone] Luis Ambriz MD Primary Care Provider [phone] MD Unavailable [phone] Nini Patten MD Unavailable [phone] Nini Patten MD Unavailable [phone] Margaret Reyes [facility] Unavailable Unavailable Adria Cisneros MD Unavailable [phone] Adria Cisneros MD Unavailable [phone] Adria Cisneros MD Unavailable [phone] Margaret Reyes [facility] Unavailable Unavailable Adria Cisneros MD Unavailable [phone] Encounter Details Date Type Department Care Team (Late st Contact Info) Description 08/05/2023 External Order Results [facility] [address] [place] [address] Outside, Provider Social History Tobacco Use Types [...] Info) Description 05/25/2025 11:30 AM CDT Lab [facility] [address] [place] [address] 07/29/2025 8:40 AM HAND WOVEN CARPET AND RUG MENDER Office Visit [facility] [address] [facility] 9th [address] Clin [address] [place] [address] Kapil Kay MD [address] [place] [address] 08/25/2025 1:00 PM HAND WOVEN CARPET AND RUG MENDER Lab [facility] [address] [place] [address] 12/08/2025 1:00 PM CDT Virtual Visit [facility] [address] [place] [address] Adria Cisneros MD [address] [place] [address] documented as of this encounter Procedures Procedure Name Priority Date/Time Associated Diagnosis Comments CBC WITH PLATELETS & DIFFERENTIAL Routine 08/05/2023 2:44 PM HAND WOVEN CARPET AND RUG MENDER ERYTHROCYTE SEDIMENTATION RATE AUTO Routine 08/05/2023 2:44 PM HAND WOVEN CARPET AND RUG MENDER CRP INFLAMMATION Routine 08/05/2023 2:44 PM HAND WOVEN CARPET AND RUG MENDER COMPREHENSIVE METABOLIC PANEL Routine 08/05/2023 2:44 PM HAND WOVEN CARPET AND RUG MENDER documented in this encounter Results * (ABNORMAL) Comprehensive metabolic panel (08/05/2023 2:44 PM HAND WOVEN CARPET AND RUG MENDER) Sodium (External) 139 135 - 149 mmol/L [...] BLOOD SPECIMEN / Unknown 08/05/2023 2:44 PM HAND WOVEN CARPET AND RUG MENDER Narrative [facility] PFT - 08/08/2023 10:56 AM HAND WOVEN CARPET AND RUG MENDER Verified by Hilario Stevenson on 08/08/2023. us Provider Outside LAB - BLOOD ORDERABLES Edited R esult - Final NIKOLAIJUAN J PFLauro NON-INTERFACED (ONBASE SCANS) * (ABNORMAL) CRP inflammation (08/05/2023 2:44 PM HAND WOVEN CARPET AND RUG MENDER) [facility] CRP Inflammation (External) <0.5(L) 0.5 - 1.0 mg/dL NON-INTERFACE D (ONBASE SCANS) Blood BLOOD SPECIMEN / Unknown 08/05/2023 2:44 PM HAND WOVEN CARPET AND RUG MENDER Narrative BREEZE PFT - 08/08/2023 10:56 AM HAND WOVEN CARPET AND RUG MENDER Verified by Hilario Stevenson on 08/08/2023. Provider Outside LAB - BLOOD ORDERABLES Edited R [employer] Performing Organization Address City/[facility]/ZIP Co de Phone Number NIKOLAIEZE PFT NON-INTERFACED (ONBASE SCANS) * Erythrocyte sedimentation rate auto (08/05/2023 2:44 PM HAND WOVEN CARPET AND RUG MENDER) [facility] ESR (External) 7 2 - 20 mm/hr NON-INTERFACED (ONBASE SCANS) Blood BLOOD SPECIMEN / Unknown 08/05/2023 2:44 PM HAND WOVEN CARPET AND RUG MENDER Narrative BREEZE PFT - 08/08/2023 10:56 AM HAND WOVEN CARPET AND RUG MENDER Verified by Hilario Stevenson on 08/08/2023. Provider Outside LAB - BLOOD ORDERABLES Edited [employer] Performing Organization Address [facility] de Phone Number LYRICE PFT NON-INTERFACED (ONBASE SCANS) * CBC with Platelets & Differential (08/05/2023 2:44 PM HAND WOVEN CARPET AND RUG MENDER) [facility] WBC Count (External) 5.07 4.50 - 11.00 [...] BLOOD SPECIMEN / Unknown 08/05/2023 2:44 PM HAND WOVEN CARPET AND RUG MENDER Narrative WOODY PFLauro - 08/08/2023 10:56 AM HAND WOVEN CARPET AND RUG MENDER Verified by Hilario Stevenson on 08/08/2023. us Provider Outside LAB - BLOOD ORDERABLES Edited R esult - Final NIKOLAIJUAN J PFLauro NON-INTERFACED (ONBASE SCANS) documented in this encounter Visit Diagnoses Not on filedocumented in this encounter Additional Health Concerns Assessment Noted Time PHQ-9 Depression Total Score: 4 12/25/19 23 2:25 PM CDT documented as of this encounter Care Teams Nitro Worker Relationship Specialty Start Date End Date Luis Ambriz MD [address] [place] [address] PCP - General Family Medicine 02/16/22 Bola Amor, PATTERNMAKER HELPER, [facility] [address] [facility] [address] [facility] [address] [place] [address] Assigned Behavioral Health Provider 12/04/21 06/27/24 Shaan Ramirez MD [address] [place] [address] 236005 Assigned Surgical Provider 12/04/[address] MD [address] [place] [address] Assigned Rheumatology Provider 02/25/22 02/25/24 Nini Patten MD [address] [place] [address] Endocrinology, Diabetes, and Metabolism 08/29/22 Nini Patten MD [address] [place] [address] Assigned Endocrinology Provider 01/20/23 11/25/24 Margaret Reyes, [facility] 08/10/23 Adria Cisneros MD [address] [place] [address] 280745 Rheumatology 11/09/23 Adria Cisneros MD [address] [place] [address] [phone] Rheumatology 11/09/23 Adria Cisneros MD [address] [place] [address] [phone] Assigned Rheumatology Provider 02/26/24 Margaret Reyes [facility] Assigned MTM Pharmacist 06/28/24 Adria Cisneros MD [address] [place] [address] [phone] Rheumatology 08/01/24 documented as of this encounter
--- OUTSIDE RECORDS SUMMARY | 2025-05-18 17:54 | XMS_ITS | Encounter Summary ---
Author Organization [place] Address [address] [place] [address] Care Team Providers Care Digital Associate Media Director Name Role Phone ZuleymaBola [facility] Unavailable +[phone] Shaan Ramirez MD Unavailable [phone] Luis Ambriz MD Primary Care Provider [phone] MD Unavailable [phone] Nini Patten MD Unavailable [phone] Nini Patten MD Unavailable [phone] Margaret Reyes [facility] Unavailable Unavailable Adria Cisneros MD Unavailable [phone] Adria Cisneros MD Unavailable [phone] Adria Cisneros MD Unavailable +[phone] Margaret Reyes [facility] Unavailable Unavailable Adria Cisneros MD Unavailable [phone] Encounter Details Date Type Department Care Team (Late st Contact Info) Description 04/10/2023 [facility]ology Clinic [address] 3rd [place] [address] Nini Patten MD [address] [place] [address] Social History Tobacco Use Types Packs/Day [...] Info) Description 05/25/2025 11:30 AM CDT Lab [facility] [address] [place] [address] 07/29/2025 8:40 AM MACHINIST LINOTYPE Office [facility] Eye [facility] 067756 [facility] [address] [phone] Kapil Kay MD [facility] [place] [address] 08/25/2025 1:00 PM MACHINIST LINOTYPE Lab [address] [address] 12/08/2025 1:00 PM CDT Virtual Visit [facility] [address] [place] [address] Adria Cisneros MD [address] [place] [address] documented as of this encounter Visit Diagnoses Not on filedocumented in this encounter Additional Health Concerns Assessment Noted Time PHQ-9 Depression Total Score: 4 12/25/19 23 2:25 PM CDT documented as of this encounter Care Teams Digital Associate Media Director Relationship Specialty Start Date End Date Luis Ambriz MD [address] [place] [address] PCP - General Family Medicine 02/16/22 Bola Amor, [facility], [facility] [address] [facility] 180 [place] [address] Assigned Behavioral Health Provider 12/04/21 06/27/24 Shaan Ramirez MD [address] [place] [address]92 Assigned Surgical Provider 12/04/[address] MD [address] [place] [address] Assigned Rheumatology Provider 02/25/22 02/25/24 Nini Patten MD [address] [place] [address] Endocrinology, Diabetes, and Metabolism 08/29/22 Nini Patten MD [address] [place] [address] Assigned Endocrinology Provider 01/20/23 11/25/24 [facility] 08/10/23 Adria Cisneros MD [address] [place] [address] Rheumatology 11/09/23 Adria Cisneros MD [address] [place] [address] Rheumatology 11/09/23 Adria Cisneros MD [address] [place] [address] Assigned Rheumatology Provider 02/26/24 Margaret Reyes [facility] Assigned MTM Pharmacist 06/28/24 Adria Cisneros MD [address] [place] [address] Rheumatology 08/01/24 documented as of this encounter
--- OUTSIDE RECORDS SUMMARY | 2025-05-18 17:54 | XMS_ITS | Encounter Summary ---
Author Organization [place] Address [address] [place] [address] Care Team Providers Care Able Bodied Seaman Name Role Phone ZuleymaBola [facility], [facility] Unavailable +[phone] Shaan Ramirez MD Unavailable [phone] Luis Ambriz MD Primary Care Provider [phone] Nini Patten MD Unavailable +[phone] Nini Patten MD Unavailable +[phone] [facility] Unavailable Unavailable Adria Cisneros MD Unavailable [phone] Adria Cisneros MD Unavailable [phone] Adria Cisneros MD Unavailable [phone] [facility] Unavailable Unavailable Adria Cisneros MD Unavailable [phone] Encounter Details Date Type Department Care Team (Late st Contact Info) Description 05/14/2024 [facility] Rheumatology Clinic [address] [address] Margaret Reyes, [facility] Social History Tobacco Use Types Packs/Day [...] Info) Description 05/25/2025 11:30 AM CDT Lab [facility] [address] [place] [address] 07/29/2025 8:40 AM SENIOR INSTRUMENTATION ENGINEER Office [facility] 516 [facility] 9th [facility] 9A [place] [address] Kapil Kay MD 2450 [place] [address] 08/25/2025 1:00 PM SENIOR INSTRUMENTATION ENGINEER Lab [facility] [address] [place] [address] 12/08/2025 1:00 PM CDT Virtual Visit [facility] [address] [place] [address] [place] [address] Adria Cisneros MD 515 [facility] 88 [place], [place] 962495 documented as of this encounter Visit Diagnoses Not on filedocumented in this encounter Additional Health Concerns Assessment Noted Time PHQ-9 Depression Total Score: 4 12/25/19 23 2:25 PM CDT documented as of this encounter Care Teams Able Bodied Seaman Relationship Specialty Start Date End Date Luis Ambriz MD 6 [place], [place] 8[address] PCP - General Family Medicine 02/16/22 Bola Amor, MOBILE PARAMEDICAL EXAMINER, [facility] [address] [address] Assigned Behavioral Health Provider 12/04/21 06/27/24 Shaan Ramirez MD [address] [place] [address] Assigned Surgical Provider 12/04/21 Nini Patten MD [address] [place] [address] Endocrinology, Diabetes, and Metabolism 08/29/22 Nini Patten MD [address] [place] [address] Assigned Endocrinology Provider 01/20/23 11/25/[address] [facility] Pharmacist 08/10/23 Adria Cisneros MD [address] [place] [address] Rheumatology 11/09/23 Adria Cisneros MD [address] [place] [address] Rheumatology 11/09/23 Adria Cisneros MD [address] [place] [address] 14910 Assigned Rheumatology Provider 02/26/[address] [facility] Assigned MTM Pharmacist 06/28/24 Adria Cisneros MD [address] [place] [address] Rheumatology 08/01/24 documented as of this encounter
--- OUTSIDE RECORDS SUMMARY | 2025-05-18 17:54 | XMS_ITS | Encounter Summary ---
Author Organization [place] Address [address] [place] [address] Care Team Providers Care Gasoline Engine Inspector Name Role Phone Bola Amor [facility], [facility] Unavailable [phone] Shaan Ramirez MD Unavailable [phone] Luis Ambriz MD Primary Care Provider [phone] MD Unavailable [phone] Nini Patten MD Unavailable [phone] Nini Patten MD Unavailable [phone] Margaret Reyes [facility] Unavailable Unavailable Adria Cisneros MD Unavailable [phone] Adria Cisneros MD Unavailable [phone] Adria Cisneros MD Unavailable [phone] Margaret Reyes [facility] Unavailable Unavailable Adria Cisneros MD Unavailable [phone] Encounter Details Date Type Department Care Team (Late st Contact Info) Description 12/11/2023 [facility] [address] [address] Margaret Reyes, [facility] Social History Tobacco Use Types Packs/Day Years [...] Info) Description 05/25/2025 11:30 AM CDT Lab [facility] [address] [place] [address] 07/29/2025 8:40 AM BAND INSTRUMENT MAKER [facility] 516 [facility] 9[facility] 9A [place] [address] Kapil Kay MD [address] [place] [address] 08/25/2025 1:00 PM BAND INSTRUMENT MAKER Lab [facility] [address] [place] [address] 12/08/2025 1:00 PM CDT Virtual Visit [facility] [address] [place] [address] [place] [phone] Adria Cisneros MD [address] [address] documented as of this encounter Visit Diagnoses Not on filedocumented in this encounter Additional Health Concerns Assessment Noted Time PHQ-9 Depression Total Score: 4 12/25/19 23 2:25 PM CDT documented as of this encounter Care Teams Gasoline Engine Inspector Relationship Specialty Start Date End Date Luis Ambriz MD [address] [place] [address] PCP - General Family Medicine 02/16/22 Bola Amor, PLANNING ASSISTANT, LADC [address] [facility] 180 [place] [address] Assigned Behavioral Health Provider 12/04/21 06/27/24 Shaan Ramirez MD [address] [place] [address] Assigned Surgical Provider 12/04/[address] MD 6 [place] [address] Assigned Rheumatology Provider 02/25/22 02/25/24 Nini Patten MD [address] [place] [address] Endocrinology, Diabetes, and Metabolism 08/29/22 Nini Patten MD [address] [place] [address] Assigned Endocrinology Provider 01/20/23 11/25/24 [facility] 08/10/23 Adria Cisneros MD [address] [place] [address] Rheumatology 11/09/23 Adria Cisneros MD [address] [place] [address] Rheumatology 11/09/23 Adria Cisneros MD [address] [place] [address] Assigned Rheumatology Provider 02/26/24 Margaert Reyes [facility] Assigned MTM Pharmacist 06/28/24 Adria Cisneros MD [address] [place] [address] 24080 Rheumatology 08/01/24 documented as of this encounter
--- OUTSIDE RECORDS SUMMARY | 2025-05-18 17:54 | XMS_ITS | Encounter Summary ---
Author Organization [place] Address [address] [place] [address] Care Team Providers Care Supplier Quality Name Role Phone ZuleymaBola [facility], [facility] Unavailable [phone] Shaan Ramirez MD Unavailable [phone] Luis Ambriz MD Primary Care Provider [phone] MD Unavailable [phone] Nini Patten MD Unavailable [phone] Nini Patten MD Unavailable [phone] Margaret Reyes [facility] Unavailable Unavailable Adria Cisneros MD Unavailable [phone] Adria Cisneros MD Unavailable [phone] Adria Cisneros MD Unavailable [phone] Margaret Reyes [facility] Unavailable Unavailable Adria Cisneros MD Unavailable [phone] Encounter Details Date Type Department Care Team (Late st Contact Info) Description 05/02/2023 [facility] Endocrinology Clinic [address]rd [place] [address] Baljinder Friend Social History Tobacco [...] Lab [facility] [address] [place] [address] 07/29/2025 8:40 AM WEATHER STRIP INSTALLER Office Visit [facility] Eye [facility] 516 [facility] 9th [facility] Clin 9A [place] [address] Kapil Kay MD 2450 [facility] [address] 08/25/2025 1:00 PM WEATHER STRIP INSTALLER Lab [facility] [address] [place] [address] 12/08/2025 1:00 PM CDT Virtual Visit [facility] [address] [facility] [place] [phone] Adria Cisneros MD 515 [facility] 88 [place], [place] [address] documented as of this encounter Visit Diagnoses Not on filedocumented in this encounter Additional Health Concerns Assessment Noted Time PHQ-9 Depression Total Score: 4 12/25/19 23 2:25 PM CDT documented as of this encounter Care Teams Supplier Quality Relationship Specialty Start Date End Date Luis Ambriz MD 516 [place], [place] [phone] PCP - General Family Medicine 02/16/22 Bola Amor, [employer], LADC [address] [facility] 180 [place], [place] [address] Assigned Behavioral Health Provider 12/04/21 06/27/24 Shaan Ramirez MD [address] [place] [address] Assigned Surgical Provider 12/04/[address] MD [address] [place] [address] 119285 Assigned Rheumatology Provider 02/25/22 02/25/24 Nini Patten MD [address] [place] [address] Endocrinology, Diabetes, and Metabolism 08/29/22 Nini Patten MD [address] [place] [address] Assigned Endocrinology Provider 01/20/23 11/25/24 Margaret Reyes [facility] Pharmacist 08/10/23 Adria Cisneros MD [address] [place] [address] Rheumatology 11/09/23 Adria Cisneros MD [address] [place] [address] Rheumatology 11/09/23 Adria Cisneros MD [address] [place] [address] Assigned Rheumatology Provider 02/26/24 Margaret Reyes [facility] Assigned MTM Pharmacist 06/28/24 Adria Cisneros MD [address] [place] [address] Rheumatology 08/01/24 documented as of this encounter
--- OUTSIDE RECORDS SUMMARY | 2025-05-18 17:54 | XMS_ITS | Encounter Summary ---
Author Organization [place] Address [address] [place] [address] Care Team Providers Care Stone Operator Name Role Phone ZuleymaChristalromancamila Naranjo [facility], [facility] Unavailable [phone] Shaan Ramirez MD Unavailable [phone] Luis Ambriz MD Primary Care Provider [phone] MD Unavailable [phone] Nini Patten MD Unavailable [phone] Nini Patten MD Unavailable [phone] Margaret Reyes [facility] Unavailable Unavailable Adria Cisneros MD Unavailable [phone] Adria Cisneros MD Unavailable [phone] Adria Cisneros MD Unavailable [phone] Margaret Reyes [facility] Unavailable Unavailable Adria Cisneros MD Unavailable [phone] Encounter Details Date Type Department Care Team (Late st Contact Info) Description 09/26/2022 [facility] Medical Advice [facility] Rheumatology Clinic [address] [address] MD Health [facility], Rheumatology [address] [place] [address] Social History Tobacco Use Types Packs/Day [...] Info) Description 05/25/2025 11:30 AM CDT Lab [facility] [address] [place] [address] 07/29/2025 8:40 AM THEATRE PROFESSOR Office Visit [facility] Eye [facility] 516 [facility] 9th [facility] 9A [place] [address] Kapil Kay MD 2450 [place] [address] 08/25/2025 1:00 PM THEATRE PROFESSOR Lab [facility] [address] [place] [address] 12/08/2025 1:00 PM CDT Virtual Visit [facility] [address] [place] [address] Adria Cisneros MD [address] [place] [address] documented as of this encounter Visit Diagnoses Not on filedocumented in this encounter Additional Health Concerns Assessment Noted Time PHQ-9 Depression Total Score: 10 023 9:59 AM THEATRE PROFESSOR documented as of this encounter Care Teams Stone Operator Relationship Specialty Start Date End Date Luis Ambriz MD [address] [place] [address] PCP - General Family Medicine 02/16/22 Bola Amor, BATTERY RECHARGER, [facility] S [address] [address] Assigned Behavioral Health Provider 12/04/21 06/27/24 Shaan Ramirez MD [address] [place] [address] Assigned Surgical Provider 12/04/[address] MD [address] [place] [address] Assigned Rheumatology Provider 02/25/22 02/25/24 Nini Patten MD [address] [place] [address] Endocrinology, Diabetes, and Metabolism 08/29/22 Nini Patten MD [address] [place] [address] Assigned Endocrinology Provider 01/20/23 11/25/24 Margaret Reyes [facility] 08/10/23 Adria Cisneros MD [address] [place] [address] Rheumatology 11/09/23 Adria Cisneros MD [address] [place] [address] Rheumatology 11/09/23 Adria Cisneros MD [address] [place] [address] Assigned Rheumatology Provider 02/26/24 Margaret Reyes [facility] Assigned MTM Pharmacist 06/28/24 Adria Cisneros MD [address] [place] [address] 33789455 Rheumatology 08/01/24 documented as of this encounter
--- OUTSIDE RECORDS SUMMARY | 2025-05-18 17:54 | XMS_ITS | Encounter Summary ---
Author Organization [place] Address [address] [place] [address] Care Team Providers Care Preschool Substitute Teacher Name Role Phone Shaan Ramirez MD Unavailable [phone] Luis Ambriz MD Primary Care Provider [phone] Nini Pattne MD Unavailable [phone] [facility] Unavailable Unavailable Adria Cisneros MD Unavailable [phone] Adria Cisneros MD Unavailable [phone] Adria Cisneros MD Unavailable [phone] [facility] Unavailable Unavailable Adria Cisneros MD Unavailable [phone] Encounter Details Date Type Department Care Team (Late st Contact Info) Description 04/17/2025 [facility] Eye [address] [place] [address] Baljinder Friend Social History Tobacco Use Types Packs/Day Years Used Date Smoking Tobacco: Never Passive Smoke Exposure: Never Smokeless Tobacco: Never Alcohol Use Standard Drinks/Week Comments Yes 0 (1 standard drink = 0.6 oz pur e alcohol) Occ. PHQ-2 Answer Date Recorded PHQ-2 Score 0 03/09/2025 Adolescent Education Answer Date Record ed Getting [...] Info) Description 05/25/2025 11:[address] [facility] [address] [place] [address] 07/29/2025 8:40 AM RECREATION PROGRAM COORDINATOR Office Visit [facility] Eye [facility] 516 [facility] [address] [address] Kapil Kay MD 2450 [place], [place] [address]164 08/25/2025 1:00 PM RECREATION PROGRAM COORDINATOR Lab [address] [address] 12/08/2025 1:00 PM CDT Virtual Visit [facility] [address] [facility] [place] [address] Adria Cisneros MD [address] [place] [address] documented as of this encounter Visit Diagnoses Not on filedocumented in this encounter Additional Health Concerns Assessment Noted Time PHQ-9 Depression Total Score: 5 08/01/20 7:42 AM RECREATION PROGRAM COORDINATOR documented as of this encounter Care Teams Preschool Substitute Teacher Relationship Specialty Start Date End Date Luis Ambriz MD [address] [place] [address] 348825 PCP - General Family Medicine 02/16/22 Shaan Ramirez MD [address] [place] [address] 744315 Assigned Surgical Provider 12/04/21 Nini Patten MD [address] [place] [address] Endocrinology, Diabetes, and Metabolism 08/29/[address] [facility] Pharmacist 08/10/23 Adria Cisneros MD [address] [place] [address] Rheumatology 11/09/23 Adria Cisneros MD [address] [place] [address] Rheumatology 11/09/23 Adria Cisneros MD [address] [place] [address] 317595 Assigned Rheumatology Provider 02/26/[address] [facility] Assigned MTM Pharmacist 06/28/24 Adria Cisneros MD [address] [place] [address] Rheumatology 08/01/24 documented as of this encounter
--- OUTSIDE RECORDS SUMMARY | 2025-05-18 17:54 | XMS_ITS | Encounter Summary ---
Author Organization [place] Address [address] [place] [address] Care Team Providers Care Graduate Studies Dean Name Role Phone Shaan Ramirez MD Unavailable [phone] Luis Ambriz MD Primary Care Provider [phone] Nini Patten MD Unavailable [phone] Margaret Reyes [facility] Unavailable Unavailable Adria Cisneros MD Unavailable [phone] Adria Cisneros MD Unavailable [phone] Adria Cisneros MD Unavailable [phone] Margaret Reyes [facility] Unavailable Unavailable Adria Cisneros MD Unavailable [phone] Encounter Details Date Type Department Care Team (Late st Contact Info) Description 02/13/2025 Results Follow-Up [facility] Eye [address] [phone] Shaan Ramirez MD [address] [place] [address] [phone] Subj: Message about your results Social History Tobacco Use Types Packs/Day [...] AM CDT Lab [facility] [address] [place] [address] 07/29/2025 8:40 AM SPONGE MAKER Office Visit [facility] 516 [facility] [address] [address] Kapil Kay MD 2450 [place] [address] 08/25/2025 1:00 PM SPONGE MAKER Lab [facility] [address] [place] [address] 12/08/2025 1:00 PM CDT Virtual Visit [facility] [address] [place] [address] [place] [address] Adria iCsneros MD [address] [place] [address] documented as of this encounter Visit Diagnoses Not on filedocumented in this encounter Additional Health Concerns Assessment Noted Time PHQ-9 Depression Total Score: 5 08/01/20 24 7:42 AM SPONGE MAKER documented as of this encounter Care Teams Graduate Studies Dean Relationship Specialty Start Date End Date Luis Ambriz MD [address] [place] [address] PCP - General Family Medicine 02/16/22 Shaan Ramirez MD [address] [place] [address] 30982 Assigned Surgical Provider 12/04/21 Nini Patten MD [address] [place] [address] Endocrinology, Diabetes, and Metabolism 08/29/22 Margaret Reyes [facility] Pharmacist 08/10/23 Adria Cisneros MD [address] [place] [address] Rheumatology 11/09/23 Adria Cisneros MD [address] [place] [address]13 Rheumatology 11/09/23 Adria Cisneros MD [address] [place] [address] 946705 Assigned Rheumatology Provider 02/26/24 Margaret Reyes [facility] Assigned MTM Pharmacist 06/28/24 Adria Cisneros MD [address] [place] [address] Rheumatology 08/01/24 documented as of this encounter
--- OUTSIDE RECORDS SUMMARY | 2025-05-18 17:54 | XMS_ITS | Encounter Summary ---
Author Organization [place] Address [address] [place] [address] Care Team Providers Care Bandage Maker Name Role Phone ZuleymaBola [facility], [facility] Unavailable +[phone] Shaan Ramirez MD Unavailable [phone] Luis Ambriz MD Primary Care Provider [phone] MD Unavailable +[phone] Nini Patten MD Unavailable [phone] Nini Patten MD Unavailable [phone] Margaret Reyes [facility] Unavailable Unavailable Adria Cisneros MD Unavailable [phone] Adria Cisneros MD Unavailable [phone] Adria Cisneros MD Unavailable [phone] Margaret Reyes [facility] Unavailable Unavailable Adria Cisneros MD Unavailable [phone] Encounter Details Date Type Department Care Team (Late st Contact Info) Description 12/22/[address] [address] Baljinder Friend Social History Tobacco [...] Info) Description 05/25/2025 11:30 AM CDT Lab [facility] [address] [place] [address] 07/29/2025 8:40 AM HARVEST FIELD TICKETER Office Visit [facility] Eye [facility] 9A [place] [address] Kapil Kay MD 2450 [place] [address] 08/25/2025 1:00 PM HARVEST FIELD TICKETER Lab [facility] Laboratory [address] [place] [address] 12/08/2025 1:00 PM CDT Virtual Visit [facility] [address] [place] [address] [place] [address] Adria Cisneros MD [address] [address] documented as of this encounter Visit Diagnoses Not on filedocumented in this encounter Additional Health Concerns Assessment Noted Time PHQ-9 Depression Total Score: 10 022 12:04 PM CDT documented as of this encounter Care Teams Bandage Maker Relationship Specialty Start Date End Date Luis Ambriz MD 6 [place] [address] PCP - General Family Medicine 02/16/22 Bola Amor, SENIOR TECHNICAL EDITOR, [facility] S [facility] ST [facility] 180 [place] [address] Assigned Behavioral Health Provider 12/04/21 06/27/24 Shaan Ramirez MD 6 [place] [address] Assigned Surgical Provider 12/04/[address] MD [address] [place] [address] Assigned Rheumatology Provider 02/25/22 02/25/24 Nini Patten MD [address] [place] [address] Endocrinology, Diabetes, and Metabolism 08/29/22 Nini Patten MD [address] [place] [address] Assigned Endocrinology Provider 01/20/23 11/25/24 [facility] 08/10/23 Adria Cisneros MD [address] [place] [address] Rheumatology 11/09/23 Adria Cisneros MD [address] [place] [address] Rheumatology 11/09/23 Adria Cisneros MD [address] [place] [address] Assigned Rheumatology Provider 02/26/24 Margaret Reyes [facility] Assigned MTM Pharmacist 06/28/24 Adria Cisneros MD [address] [place] [address] Rheumatology 08/01/24 documented as of this encounter
--- OUTSIDE RECORDS SUMMARY | 2025-05-18 17:54 | XMS_ITS | Encounter Summary ---
Author Organization [place] Address [address] [place] [address] Care Team Providers Care Correctional Supervisor Lieutenant Name Role Phone Shaan Ramirez MD Unavailable [phone] Luis Ambriz MD Primary Care Provider [phone] Nini Patten MD Unavailable [phone] Margaret Reyes [facility] Unavailable Unavailable Adria Cisneros MD Unavailable [phone] Adria Cisneros MD Unavailable [phone] dAria Cisneros MD Unavailable [phone] Margaret Reyes [facility] Unavailable Unavailable Adria Cisneros MD Unavailable [phone] Encounter Details Date Type Department Care Team (Late st Contact Info) Description 03/26/2025 Results Follow-Up [facility] Rheumatology Clinic [address] [address] Adria Cisneros MD [address] [place] [address] Subj: Message about your results Social History [...] Info) Description 05/25/2025 11:30 AM CDT Lab [facility] [address] [place] [address] 07/29/2025 8:40 AM NUCLEAR RADIATION ENGINEER Office Visit [facility] Eye [facility] 516 [facility] [address] [address] Kapil Kay MD 2450 [place] [address] 08/25/2025 1:00 PM NUCLEAR RADIATION ENGINEER Lab [place] 32[address]80 [place] [address] 12/08/2025 1:00 PM CDT Virtual Visit [facility] [address] [place] [address] [place] [address] Adria Cisneros MD [address] [place] [address] 520265 documented as of this encounter Visit Diagnoses Not on filedocumented in this encounter Additional Health Concerns Assessment Noted Time PHQ-9 Depression Total Score: 5 08/01/20 24 7:42 AM NUCLEAR RADIATION ENGINEER documented as of this encounter Care Teams Correctional Supervisor Lieutenant Relationship Specialty Start Date End Date Luis Ambriz MD [address] [place] [address] 763255 PCP - General Family Medicine 02/16/22 Shaan Ramirez MD [address] [place] [address] Assigned Surgical Provider 12/04/21 Nini Patten MD [address] [place] [address] Endocrinology, Diabetes, and Metabolism 08/29/22 Margaret Reyes [facility] Pharmacist 08/10/23 Adria Cisneros MD [address] [place] [address] Rheumatology 11/09/23 Adria Cisneros MD [address] [place] [address] Rheumatology 11/09/23 Adria Cisneros MD [address] [place] [address] Assigned Rheumatology Provider 02/26/24 Margaret Reyes [facility] Assigned MTM Pharmacist 06/28/24 Adria Cisneros MD [address] [place] [address] Rheumatology 08/01/24 documented as of this encounter
--- OUTSIDE RECORDS SUMMARY | 2025-05-18 17:54 | XMS_ITS | Encounter Summary ---
Author Organization [place] Address [address] [place] [address] Care Team Providers Care Payroll Associate Name Role Phone Eve Amorcamila Naranjo [facility] Unavailable [phone] Shaan Ramirez MD Unavailable [phone] Luis Ambriz MD Primary Care Provider [phone] MD Unavailable [phone] Nini Patten MD Unavailable [phone] Nini Patten MD Unavailable [phone] Margaret Reyes [facility] Unavailable Unavailable Adria Cisneros MD Unavailable [phone] Adria Cisneros MD Unavailable [phone] Adria Cisneros MD Unavailable [phone] Margaret Reyes [facility] Unavailable Unavailable Adria Cisneros MD Unavailable [phone] Encounter Details Date Type Department Care Team (Late st Contact Info) Description 11/29/2021 [facility] Eye [place] 579256 [facility] Emergency Department 9 Mt Clin 9A [place] [address] Shaan Ramirez MD [address] [place] [address] 176245 Social History Tobacco Use Types Packs/Day Years [...] Info) Description 05/25/2025 11:30 AM CDT Lab [facility] Laboratory [address] [place] [address] 07/29/2025 8:40 AM FOURDRINIER OPERATOR Office Visit [facility] Eye [facility] - [address] 9[facility] 9A [place] [address] Kapil Kay MD [address] [place] [address] 08/25/2025 1:00 PM FOURDRINIER OPERATOR Lab [facility] Laboratory [address] [place] [address] 12/08/2025 1:00 PM CDT Virtual Visit [facility] [address] [place] [phone] Adria Cisneros MD [address] [place] [address] documented as of this encounter Visit Diagnoses Not on filedocumented in this encounter Additional Health Concerns Assessment Noted Time PHQ-9 Depression Total Score: 6 11/25/19 7:04 AM CDT documented as of this encounter Care Teams Payroll Associate Relationship Specialty Start Date End Date Luis Ambriz MD [address] [place] [address] PCP - General Family Medicine 02/16/22 Bola Amor, HOT MOLDER, [facility] 1300 [address] [facility] ST [facility] 180 [place] [address] Assigned Behavioral Health Provider 12/04/21 06/27/24 Shaan Ramirez MD [address] [place] [address] 375705 Assigned Surgical Provider 12/04/[address] MD [address] [place] [address] 391665 Assigned Rheumatology Provider 02/25/22 02/25/24 Nini Patten MD [address] [place] [address] Endocrinology, Diabetes, and Metabolism 08/29/22 Nini Patten MD [address] [place] [address] Assigned Endocrinology Provider 01/20/23 11/25/24 Margaret Reyes, [facility] 08/10/23 Adria Cisneros MD [address] [place] [address] 103935 Rheumatology 11/09/23 Adria Cisneros MD [address] [place] [address] 481755 Rheumatology 11/09/23 Adria Cisneros MD [address] [place] [address] 481305 Assigned Rheumatology Provider 02/26/24 Margaret Reyes [facility] Assigned MTM Pharmacist 06/28/24 Adria Cisneros MD [address] [place] [address] Rheumatology 08/01/24 documented as of this encounter
--- OUTSIDE RECORDS SUMMARY | 2025-05-18 17:54 | XMS_ITS | Encounter Summary ---
Author Organization [place] Address [address] [place] [address] Care Team Providers Care Manager Pacu Name Role Phone ZuleymaBola [facility], [facility] Unavailable [phone] Shaan Ramirez MD Unavailable [phone] Luis Ambriz MD Primary Care Provider [phone] MD Unavailable [phone] Nini Patten MD Unavailable [phone] Nini Patten MD Unavailable [phone] Margaret Reyes [facility] Unavailable Unavailable Adria Cisneros MD Unavailable [phone] Adria Cisneros MD Unavailable [phone] Adria Cisneros MD Unavailable [phone] Margaret Reyes [facility] Unavailable Unavailable Adria Cisneros MD Unavailable [phone] Encounter Details Date Type Department Care Team (Late st Contact Info) Description 02/02/[address] [address] Baljinder Friend Social History Tobacco [...] Info) Description 05/25/2025 11:30 AM CDT Lab [facility] 60542 [place] [address] 07/29/2025 8:40 AM COUPON AND BOND COLLECTION CLERK Office Visit [facility] Eye [facility] 516 [facility] 9th De Clin 9A [place] [address] Kapil Kay MD 2450 [place], [place] 514684 08/25/2025 1:00 PM COUPON AND BOND COLLECTION CLERK Lab [facility] Laboratory 30344 [place] [address] 12/08/2025 1:00 PM CDT Virtual Visit [facility] [address] [place] [address] Adria Cisneros MD 515 [facility] 88 [place] [address] documented as of this encounter Visit Diagnoses Not on filedocumented in this encounter Additional Health Concerns Assessment Noted Time PHQ-9 Depression Total Score: 6 02/03/20 22 9:26 AM CDT documented as of this encounter Care Teams Manager Pacu Relationship Specialty Start Date End Date Luis Ambriz MD 516 [place] [address] PCP - General Family Medicine 02/16/22 Bola Amor, PROCESS CONTROL OPERATOR, [facility] [address] [facility] 180 [place] [address] Assigned Behavioral Health Provider 12/04/21 06/27/24 Shaan Ramirez MD 6 [place] [address] Assigned Surgical Provider 12/04/[address] MD 6 [place] [address] Assigned Rheumatology Provider 02/25/22 02/25/24 Nini Patten MD 909 [place] [address] Endocrinology, Diabetes, and Metabolism 08/29/22 Nini Patten MD [address] [place] [address] Assigned Endocrinology Provider 01/20/23 11/25/24 Margaret Reyes [facility] Pharmacist 08/10/23 Adria Cisneros MD [address] [place] [place] [address] Rheumatology 11/09/23 Adria Cisneros MD [address] [place] [place] [address] Rheumatology 11/09/23 Adria Cisneros MD [address] [place] [place] [address] Assigned Rheumatology Provider 02/26/24 Margaret Reyes [facility] Assigned MTM Pharmacist 06/28/24 Adria Cisneros MD [address] [place] [place] [address] Rheumatology 08/01/24 documented as of this encounter
--- OUTSIDE RECORDS SUMMARY | 2025-05-18 17:54 | XMS_ITS | Encounter Summary ---
Author Organization [place] Address [address] [place] [address] Care Team Providers Care Freight Trucker Name Role Phone ZuleymaBola [facility] Unavailable +[phone] Shaan Ramirez MD Unavailable [phone] Luis Ambriz MD Primary Care Provider [phone] MD Unavailable [phone] Nini Patten MD Unavailable [phone] Nini Patten MD Unavailable [phone] Margaret Reyes [facility] Unavailable Unavailable Adria Cisneros MD Unavailable [phone] Adria Cisneros MD Unavailable [phone] Adria Cisneros MD Unavailable [phone] Margaret Reyes [facility] Unavailable Unavailable Adria Cisneros MD Unavailable [phone] Encounter Details Date Type Department Care Team (Late st Contact Info) Description 05/14/2023 [facility] Eye [address] [address] Baljinder Friend Social History Tobacco Use Types [...] Info) Description 05/25/2025 11:30 AM CDT Lab [facility] Laboratory [address] [place] [address] 07/29/2025 8:40 AM SERVICE COORDINATOR Office Visit [facility] Eye [facility] 516 [facility] 9th [facility] 9A [place] [address] Kapil Kay MD 2450 [place] [address] 08/25/2025 1:00 PM SERVICE COORDINATOR Lab [facility] Laboratory [address] [place] [address] 12/08/2025 1:00 PM CDT Virtual Visit [facility] [address] [place] [address] [place] [address] Adria Cisneros MD 515 [facility] 88 [place], [place] 429655 documented as of this encounter Visit Diagnoses Not on filedocumented in this encounter Additional Health Concerns Assessment Noted Time PHQ-9 Depression Total Score: 4 12/25/19 23 2:25 PM CDT documented as of this encounter Care Teams Freight Trucker Relationship Specialty Start Date End Date Luis Ambriz MD 6 [place], [place] 677605 PCP - General Family Medicine 02/16/22 Bola Amor, [address] SQL DEVELOPER, [facility] S [address] [address] Assigned Behavioral Health Provider 12/04/21 06/27/24 Shaan Ramirez MD [address] [place] [address] Assigned Surgical Provider 12/04/[address] MD [address] [place] [address]684 Assigned Rheumatology Provider 02/25/22 02/25/24 Nini Patten MD [address] [place] [address] Endocrinology, Diabetes, and Metabolism 08/29/22 Nini Patten MD [address] [place] [address] Assigned Endocrinology Provider 01/20/23 11/25/24 Margaret Reyes [facility] Pharmacist 08/10/23 Adria Cisneros MD [address] [place] [address] Rheumatology 11/09/23 Adria Cisneros MD [address] [place] [address] 22881 Rheumatology 11/09/23 Adria Cisneros MD [address] [place] [address] Assigned Rheumatology Provider 02/26/24 Margaret Reyes [facility] Assigned MTM Pharmacist 06/28/24 Adria Cisneros MD [address] [place] [address] Rheumatology 08/01/24 documented as of this encounter
--- OUTSIDE RECORDS SUMMARY | 2025-05-18 17:54 | XMS_ITS | Encounter Summary ---
Author Organization [place] Address [address] [place] [address] Care Team Providers Care Lock Operator Name Role Phone ZuleymaChristalromancamila Naranjo [facility], [facility] Unavailable [phone] Shaan Ramirez MD Unavailable [phone] Luis Ambriz MD Primary Care Provider [phone] MD Unavailable [phone] Nini Patten MD Unavailable [phone] Nini Patten MD Unavailable +[phone] Margaret Reyes [facility] Unavailable Unavailable Adria Cisneros MD Unavailable [phone] Adria Cisneros MD Unavailable [phone] Adria Cisneros MD Unavailable [phone] Margaret Reyes [facility] Unavailable Unavailable Adria Cisneros MD Unavailable [phone] Encounter Details Date Type Department Care Team (Late st Contact Info) Description 05/17/2022 [facility] Advice [facility] Rheumatology Clinic [address] [address] MD Health [facility], Rheumatology [address] [place] [address] Social History Tobacco Use Types Packs/Day [...] Info) Description 05/25/2025 11:30 AM CDT Lab [facility] Laboratory [address] [place] [address] 07/29/2025 8:40 AM MARINE ELECTRICIAN APPRENTICE Office Visit [facility] Eye [facility] - [address] 9[facility] 9A [place] [address] Kapil Kay MD [facility] [place] [address] 08/25/2025 1:00 PM MARINE ELECTRICIAN APPRENTICE Lab [facility] Laboratory [address] [place] [address] 12/08/2025 1:00 PM CDT Virtual Visit [address] [place] [address] Adria Cisneros MD 515 [facility] 88 [place] [address] documented as of this encounter Visit Diagnoses Not on filedocumented in this encounter Additional Health Concerns Assessment Noted Time PHQ-9 Depression Total Score: 4 03/27/20 22 9:21 AM CDT documented as of this encounter Care Teams Lock Operator Relationship Specialty Start Date End Date Luis Ambriz MD 6 [place] [address] PCP - General Family Medicine 02/16/22 Bola Amor, TOOL/DIE MAKER, [facility] [address] [facility] 180 [place] [address] Assigned Behavioral Health Provider 12/04/21 06/27/24 Shaan Ramirez MD [address] [place] [address] Assigned Surgical Provider 12/04/[address] MD [address] [place] [address] Assigned Rheumatology Provider 02/25/22 02/25/24 Nini Patten MD [address] [place] [address] Endocrinology, Diabetes, and Metabolism 08/29/22 Nini Patten MD [address] [place] [address] Assigned Endocrinology Provider 01/20/23 11/25/24 Margaret Reyes [facility] Pharmacist 08/10/23 Adria Cisneros MD [address] [place] [address] Rheumatology 11/09/23 Adria Cisneros MD [address] [place] [address] Rheumatology 11/09/23 Adria Cisneros MD [address] [place] [address] 397975 Assigned Rheumatology Provider 02/26/24 Margaret Reyes [facility] Assigned MTM Pharmacist 06/28/24 Adria Cisneros MD [address] [place] [address] Rheumatology 08/01/24 documented as of this encounter
--- OUTSIDE RECORDS SUMMARY | 2025-05-18 17:54 | XMS_ITS | Encounter Summary ---
Author Organization [place] Address [address] [place] [address] Care Team Providers Care Rn Cardiovascular Icu Name Role Phone Zuleyma Christalromancamila Naranjo [facility], [facility] Unavailable [phone] Shaan Ramirez MD Unavailable [phone] Luis Ambriz MD Primary Care Provider [phone] MD Unavailable [phone] Nini Patten MD Unavailable [phone] Nini Patten MD Unavailable [phone] Margaret Reyes [facility] Unavailable Unavailable Adria Cisneros MD Unavailable [phone] Adria Cisneros MD Unavailable [phone] Adria Cisneros MD Unavailable [phone] Margaret Reyes [facility] Unavailable Unavailable Adria Cisneros MD Unavailable [phone] Encounter Details Date Type Department Care Team (Late st Contact Info) Description 01/07/2022 [facility] Eye [place] 788876 [facility] 9 De Clin 9A [place] [address] Shaan Ramirez MD [address] [place] [address] 224485 Intermediate uveitis of both eyes (Primary Dx) [...] Info) Description 05/25/2025 11:30 AM CDT Lab [facility] Laboratory [address] [place] [address] 07/29/2025 8:40 AM BLACKSMITH FARM Office Visit [facility] Eye [facility] - [address] [facility] Clin 9A [place] [address] Kapil Kay MD [facility]0 [place] [address] 08/25/2025 1:00 PM [employer] Lab [address] [address] 12/08/2025 1:00 PM CDT Virtual Visit [facility] [address] [place] [phone] Adria Cisneros MD [address] [place] [address] documented as of this encounter Visit Diagnoses Diagnosis Intermediate uveitis of both eyes- Primary documented in this encounter Additional Health Concerns Assessment Noted Time PHQ-9 Depression Total Score: 7 01/05/20 22 12:23 PM CDT documented as of this encounter Care Teams Rn Cardiovascular Icu Relationship Specialty Start Date End Date Luis Ambriz MD 6 [place] [address] PCP - General Family Medicine 02/16/22 Bola Amor, [facility], [facility] 1300 S [facility] ST [facility] 180 [place] [address] Assigned Behavioral Health Provider 12/04/21 06/27/24 Shaan Ramirez MD [address] [place] [address] Assigned Surgical Provider 12/04/[address] MD [address] [place] [address]18[address] Assigned Rheumatology Provider 02/25/22 02/25/24 Nini Patten MD [address] [place] [address] Endocrinology, Diabetes, and Metabolism 08/29/22 Nini Patten MD [address] [place] [address]90[address] Assigned Endocrinology Provider 01/20/23 11/25/24 Margaret Reyes, [facility] 08/10/23 Adria Cisneros MD [address] [place] [address] Rheumatology 11/09/23 Adria Cisneros MD [address] [place] [address] 16297 Rheumatology 11/09/23 Adria Cisneros MD [address] [place] [address] 126505 Assigned Rheumatology Provider 02/26/24 Margaret Reyes [facility] Assigned MTM Pharmacist 06/28/24 Adria Cisneros MD [address] [place] [address]3777 Rheumatology 08/01/24 documented as of this encounter
--- OUTSIDE RECORDS SUMMARY | 2025-05-18 17:54 | XMS_ITS | Encounter Summary ---
Author Organization [place] Address [address] [place] [address] Care Team Providers Care Swing Driver Name Role Phone Zuleyma Christalromancamila Naranjo [facility], [facility] Unavailable +[phone] Shaan Ramierz MD Unavailable +[phone] Luis Ambriz MD Primary Care Provider [phone] MD Unavailable [phone] Nini Patten MD Unavailable [phone] Nini Patten MD Unavailable [phone] Margaret Reyes [facility] Unavailable Unavailable Adria Cisneros MD Unavailable [phone] Adria Cisneros MD Unavailable [phone] Adria Cisneros MD Unavailable +[phone] Margaret Reyes [facility] Unavailable Unavailable Adria Cisneros MD Unavailable [phone] Encounter Details Date Type Department Care Team (Late st Contact Info) Description 12/12/2021 [facility] [place] 257446 [facility] 9 Mt Clin 9A [place] [address] Shaan Ramirez MD [address] [place] [address] 586215 Social History Tobacco Use Types Packs/Day Years [...] Info) Description 05/25/2025 11:30 AM CDT Lab [facility] Laboratory [address] [place] [address] 07/29/2025 8:40 AM STRETCHER DRIER OPERATOR Office Visit [facility] Eye [facility] - [address] [address] Kapil Kay MD 2450 [place] [address] 08/25/2025 1:00 PM STRETCHER DRIER OPERATOR Lab [facility] Laboratory [address] [place] [address] 12/08/2025 1:00 PM CDT Virtual Visit [facility] [address] [place] [address] [place] [address] Adria Cisneros MD [address] [place] [address] 807125 documented as of this encounter Visit Diagnoses Not on filedocumented in this encounter Additional Health Concerns Assessment Noted Time PHQ-9 Depression Total Score: 10 022 12:04 PM CDT documented as of this encounter Care Teams Swing Driver Relationship Specialty Start Date End Date Luis Ambriz MD [address] [place] [address] PCP - General Family Medicine 02/16/22 Bola Amor, TOBACCO FLAVORER, [facility] [address] [place] [address] 180 [place] [address] Assigned Behavioral Health Provider 12/04/21 06/27/24 Shaan Ramirez MD [address] [place] [address]01 Assigned Surgical Provider 12/04/[address] MD [address] [place] [address] Assigned Rheumatology Provider 02/25/22 02/25/24 Nini Patten MD [address] [place] [address] Endocrinology, Diabetes, and Metabolism 08/29/22 Nini Patten MD [address] [place] [address] 148[address] Assigned Endocrinology Provider 01/20/23 11/25/24 Margaret Reyes, [facility] 08/10/23 Adria Cisneros MD [address] [place] [address] 742355 Rheumatology 11/09/23 Adria Cisneros MD [address] [place] [address] 723855 Rheumatology 11/09/23 Adria Cisneros MD [address] [place] [address] Assigned Rheumatology Provider 02/26/24 Margaret Reyes [facility] Assigned MTM Pharmacist 06/28/24 Adria Cisneros MD [address] [place] [address] Rheumatology 08/01/24 documented as of this encounter
--- OUTSIDE RECORDS SUMMARY | 2025-05-18 17:54 | XMS_ITS | Encounter Summary ---
Author Organization [place] Address [address] [place] [address] Care Team Providers Care Plumber'S Assistant Name Role Phone ZuleymaBola [facility], [facility] Unavailable +[phone] Shaan Ramirez MD Unavailable [phone] Luis Ambriz MD Primary Care Provider [phone] MD Unavailable [phone] Nini Patten MD Unavailable [phone] Nini Patten MD Unavailable [phone] Margaret Reyes [facility] Unavailable Unavailable Adria Cisneros MD Unavailable [phone] Adria Cisneros MD Unavailable [phone] Adria Cisneros MD Unavailable [phone] Margaret Reyes [facility] Unavailable Unavailable Adria Cisneros MD Unavailable [phone] Encounter Details Date Type Department Care Team (Late st Contact Info) Description 07/06/2023 [facility] [address] 4th [place] [address] Baljinder Friend Social History Tobacco [...] Info) Description 05/25/2025 11:30 AM CDT Lab [facility] [address] [place] [address] 07/29/2025 8:40 AM INDUSTRIAL CHEMIST Office Visit [facility] Eye [facility] 516 [facility] 9th Wy Clin 9A [place] [address] Kapil Kay MD 2450 [place] [address] 08/25/2025 1:00 PM INDUSTRIAL CHEMIST Lab [facility] [address] [place] [address] 12/08/2025 1:00 PM CDT Virtual Visit [facility] [address] [facility] [place] [address] Adria Cisneros MD 515 [facility] 88 [place], [place] 012035 documented as of this encounter Visit Diagnoses Not on filedocumented in this encounter Additional Health Concerns Assessment Noted Time PHQ-9 Depression Total Score: 4 12/25/19 23 2:25 PM CDT documented as of this encounter Care Teams Plumber'S Assistant Relationship Specialty Start Date End Date Luis Ambriz MD 516 [place], [place] [phone] PCP - General Family Medicine 02/16/22 Bola Amor, BIOFUELS PRODUCT MANAGER, LADC [address] [facility] 180 [place], [place] 673525 Assigned Behavioral Health Provider 12/04/21 06/27/24 Shaan Ramirez MD [address] [place] [address] 12070 Assigned Surgical Provider 12/04/[address] MD [address] [place] [address]31 Assigned Rheumatology Provider 02/25/22 02/25/24 Nini Patten MD [address] [place] [address] Endocrinology, Diabetes, and Metabolism 08/29/22 Nini Patten MD [address] [place] [address] 27792 Assigned Endocrinology Provider 01/20/23 11/25/24 Margaret Reyes [facility] Pharmacist 08/10/23 Adria Cisneros MD [address] [place] [address] 366[address] Rheumatology 11/09/23 Adria Cisneros MD [address] [place] [address]90[address] Rheumatology 11/09/23 Adria Cisneros MD [address] [place] [address] 06177 Assigned Rheumatology Provider 02/26/24 Margaret Reyes [facility] Assigned MTM Pharmacist 06/28/24 Adria Cisneros MD [address] [place] [address]24 Rheumatology 08/01/24 documented as of this encounter
--- OUTSIDE RECORDS SUMMARY | 2025-05-18 17:54 | XMS_ITS | Encounter Summary ---
Author Organization [place] Address [address] [place] [address] Care Team Providers Care Arcade Attendant Name Role Phone ZuleymaChristalromancamila Naranjo [facility], [facility] Unavailable +[phone] Shaan Ramirez MD Unavailable [phone] Luis Ambriz MD Primary Care Provider [phone] MD Unavailable [phone] Nini Patten MD Unavailable [phone] Nini Patten MD Unavailable [phone] Margaret Reyes [facility] Unavailable Unavailable Adria Cisneros MD Unavailable [phone] Adria Cisneros MD Unavailable [phone] Adria Cisneros MD Unavailable [phone] Margaret Reyes [facility] Unavailable Unavailable Adria Cisneros MD Unavailable [phone] Encounter Details Date Type Department Care Team (Late st Contact Info) Description 09/13/2022 [facility] Medical Advice [facility] Rheumatology Clinic [address] [address] MD Health [facility], Rheumatology [address] [place] [address] Social History Tobacco Use Types Packs/Day [...] at 10A Jayla Elise RN Rheumatology Clinic KEY FILTERER * Telephone Encounter - Jayla Elise RN - 09/13/2022 2:37 PM CSTSummary: patient update on culture results Spoke to patient regarding her MyC message update about staph infection. Reporting she saw superintendent factory, Dr. Francisca Lomeli at [facility] [place] d/t recurrent skin infections. This visit included a nasal swab/culture of her nares. Patient has included a copy of the visit note and will upload the culture results later today whichpatient reports was positive for Staph infection. Bottle Capper is recommending extensive antbx regime. Patient verifies she 1-is not taking methotrexate 2-will recheck her labs on 09/25 3--stopped humira apprx 6 wks ago on her own thinking it was causing her repeated infections. Message update to Dr. Lane. KEY FILTERER KEY FILTERER documented in this encounter Plan of Treatment Upcoming Encounters Date Type Department Care Team (Late st Contact Info) Description 05/25/2025 11:30 AM CDT Lab [facility] [address] [place] [address] 07/29/2025 8:40 AM WHISKEY FILTERER Office [facility] Eye [facility] 516 [facility] 9th Fl Clin 9A [place] [address] Kapil Kay MD [address] [place] [address] 08/25/2025 1:00 PM WHISKEY FILTERER Lab [facility] Laboratory [address] [place] [address] 12/08/2025 1:00 PM CDT Virtual Visit [facility] [address] 99[facility] [place] [address] Adria Cisneros MD 515 [facility] 88 [place] [address] documented as of this encounter Visit Diagnoses Not on filedocumented in this encounter Additional Health Concerns Assessment Noted Time PHQ-9 Depression Total Score: 10 023 9:59 AM WHISKEY FILTERER documented as of this encounter Care Teams Arcade Attendant Relationship Specialty Start Date End Date Luis Ambriz MD 6 [place] [address] PCP - General Family Medicine 02/16/22 Bola Amor, ANNEALER HELPER, [facility] [address] [place] 180 [place] [address] Assigned Behavioral Health Provider 12/04/21 06/27/24 Shaan Ramirez MD [address] [place] [address] Assigned Surgical Provider 12/04/[address] MD 516 [place] [address] Assigned Rheumatology Provider 02/25/22 02/25/24 Nini Patten MD [address] [place] [address]661 Endocrinology, Diabetes, and Metabolism 08/29/22 Nini Patten MD [address] [place] [address] 843255 Assigned Endocrinology Provider 01/20/23 11/25/24 Margaret Reyes [facility] Pharmacist 08/10/23 Adria Cisneros MD [address] [place] [address] Rheumatology 11/09/23 Adria Cisneros MD [address] [place] [address]38 Rheumatology 11/09/23 Adria Cisneros MD [address] [place] [address] 26894 Assigned Rheumatology Provider 02/26/24 Margaret Reyes [facility] Assigned MTM Pharmacist 06/28/24 Adria Cisneros MD [address] [place] [address] Rheumatology 08/01/24 documented as of this encounter
--- OUTSIDE RECORDS SUMMARY | 2025-05-18 17:54 | XMS_ITS | Encounter Summary ---
Author Organization [place] Address [address] [place] [address] Care Team Providers Care Cuff Presser Name Role Phone ZuleymaBola [facility], [facility] Unavailable +[phone] Shaan Ramirez MD Unavailable [phone] Luis Ambriz MD Primary Care Provider [phone] MD Unavailable [phone] Nini Patten MD Unavailable [phone] Nini Patten MD Unavailable [phone] Margaret Reyes [facility] Unavailable Unavailable Adria Cisneros MD Unavailable [phone] Adria Cisneros MD Unavailable [phone] Adria Cisneros MD Unavailable [phone] Margaret Reyes [facility] Unavailable Unavailable Adria Cisneros MD Unavailable [phone] Encounter Details Date Type Department Care Team (Late st Contact Info) Description 01/04/2023 [facility] Medical Adv[facility]ology Clinic [address] [place] [address] Rika Adler CMA Social History [...] Info) Description 05/25/2025 11:30 AM CDT Lab [facility] Laboratory [address] [place] [address] 07/29/2025 8:40 AM PRODUCTION COORDINATOR Office [facility] 516 [facility] 9th Fl Clin 9A [place] [address] Kapil Kay MD 2450 [place] [address] 08/25/2025 1:00 PM PRODUCTION COORDINATOR Lab [facility] [address] [place] [address] 12/08/2025 1:00 PM CDT Virtual Visit [facility] [address] [place] [address] Adria Cisneros MD 515 [facility] 88 [place] [address] documented as of this encounter Visit Diagnoses Not on filedocumented in this encounter Additional Health Concerns Assessment Noted Time PHQ-9 Depression Total Score: 4 12/25/19 23 2:25 PM CDT documented as of this encounter Care Teams Cuff Presser Relationship Specialty Start Date End Date Luis Ambriz MD 516 [place], [place] 946605 PCP - General Family Medicine 02/16/22 Bola Amor, IT BUSINESS PROCESS ARCHITECT, LADC [address] [place] [address] [place], [place] 385645 Assigned Behavioral Health Provider 12/04/21 06/27/24 Shaan Ramirez MD 6 [place] [address] Assigned Surgical Provider 12/04/[address] MD [address] [place] [address] Assigned Rheumatology Provider 02/25/22 02/25/24 Nini Patten MD [address] [place] [address] 539405 Endocrinology, Diabetes, and Metabolism 08/29/22 Nini Patten MD [address] [place] [address] 266445 Assigned Endocrinology Provider 01/20/23 11/25/24 Margarte Reyes [facility] Pharmacist 08/10/23 Adria Cisneros MD [address] [place] [address] Rheumatology 11/09/23 Adria Cisneros MD [address] [place] [address] Rheumatology 11/09/23 Adria Cisneros MD [address] [place] [address]239 Assigned Rheumatology Provider 02/26/24 Margaret Reyes [facility] Assigned MTM Pharmacist 06/28/24 Adria Cisneros MD [address] [place] [address]209 Rheumatology 08/01/24 documented as of this encounter
--- OUTSIDE RECORDS SUMMARY | 2025-05-18 17:54 | XMS_ITS | Encounter Summary ---
Author Organization [place] Address [address] [place] [address] Care Team Providers Care Jail Keeper Name Role Phone ZuleymaBola [facility], [facility] Unavailable [phone] Shaan Ramirez MD Unavailable [phone] Luis Ambriz MD Primary Care Provider [phone] MD Unavailable [phone] Nini Patten MD Unavailable [phone] Nini Patten MD Unavailable [phone] Margaret Reyes [facility] Unavailable Unavailable Adria Cisneros MD Unavailable [phone] Adria Cisneros MD Unavailable [phone] Adria Cisneros MD Unavailable [phone] Margaret Reyes [facility] Unavailable Unavailable Adria Cisneros MD Unavailable [phone] Reason for Visit * Reason Onset Date Comments Lab Orders 01/11/2023 Fax to [facility] at [phone] Encounter Details Date Type Department Care Team (Latest Contact Info) Description 01/11/2023 [facility] Natasha Naranjo [facility] Rheumatology Clinic [address] [address] MD Health [facility], Rheumatology [address] [place] [address] Lab Orders (Fax to [facility] at 50... Social History Tobacco Use Types Packs/Day Years Used Date Smoking Tobacco: Never Smokeless Tobacco: Never PHQ-2 Answer Date Recorded PHQ-2 Score 0 01/15/2023 Comments Unknown Sex and Gender Information Value Date Recorded Sex Assigned at Female 11/23/2021 4:43 PM CDT Legal Sex Female 10:31 AM CDT Gender Identity Female 11/23/2021 4:43 PM CDT Sexual Orientation Bisexual 11/23/2021 4 :43 PM CDT COVID-19 Exposure Response Date Recorded In the last 10 days, have yo u been in contact with someone who was confirmed or suspected to have Coronavirus/COVID-19? Unable to assess 01/10/2023 3:01 PM CDT documented as of this encounter Miscellaneous Notes * Telephone Encounter - Amber Orozco CMA - 01/15/2023 10:41 AM CDT Lab orders have been successfully faxed to [facility] as requested. Confirmed via [employer]. Amber Orozco CMA 01/15/2023 10:41 AM documented in this encounter Plan of Treatment Upcoming Encounters Date Type Department Care Team (Late st Contact Info) Description 05/25/2025 11:30 AM CDT Lab [facility] Laboratory [address] [place] [address] 07/29/2025 8:40 AM ALIGNMENT TECHNICIAN Office Visit [facility] Eye [facility] [address] [facility] Clin 9A [place] [address] Kapil Kay MD [facility]0 [place] [address] 08/25/2025 1:00 PM ALIGNMENT TECHNICIAN Lab [facility] Laboratory [address] [place] [address] 12/08/2025 1:00 PM CDT Virtual Visit [place] [address] [place] [address] Adria Cisneros MD 515 [facility] 88 [place] [address] documented as of this encounter Visit Diagnoses Not on filedocumented in this encounter Additional Health Concerns Assessment Noted Time PHQ-9 Depression Total Score: 4 12/25/19 23 2:25 PM CDT documented as of this encounter Care Teams Jail Keeper Relationship Specialty Start Date End Date Luis Ambriz MD 6 [place], [place] 157545 PCP - General Family Medicine 02/16/22 Bola Amor, [facility], [facility] [address] [facility] 180 [place] [address] Assigned Behavioral Health Provider 12/04/21 06/27/24 Shaan Ramirez MD 6 [place] [address] Assigned Surgical Provider 12/04/[address] MD [address] [place] [address] 30859 Assigned Rheumatology Provider 02/25/22 02/25/24 Nini Patten MD [address] [place] [address] Endocrinology, Diabetes, and Metabolism 08/29/22 Nini Patten MD [address] [place] [address] 87479 Assigned Endocrinology Provider 01/20/23 11/25/24 Margaret Reyes [facility] Pharmacist 08/10/23 Adria Cisneros MD [address] [place] [address] Rheumatology 11/09/23 Adria Cisneros MD [address] [place] [address]72 Rheumatology 11/09/23 Adria Cisneros MD [address] [place] [address] 659325 Assigned Rheumatology Provider 02/26/24 Margaret Reyes [facility] Assigned MTM Pharmacist 06/28/24 Adria Cisneros MD [address] [place] [address]676 Rheumatology 08/01/24 documented as of this encounter
--- OUTSIDE RECORDS SUMMARY | 2025-05-18 17:54 | XMS_ITS | Encounter Summary ---
Author Organization [place] Address [address] [place] [address] Care Team Providers Care Machine Packager Name Role Phone ZuleymaBola [facility], [facility] Unavailable +[phone] Shaan Ramirez MD Unavailable [phone] Luis Ambriz MD Primary Care Provider [phone] MD Unavailable [phone] Nini Patten MD Unavailable [phone] Nini Patten MD Unavailable [phone] Margaret Reyes [facility] Unavailable Unavailable Adria Cisneros MD Unavailable [phone] Adria Cisneros MD Unavailable [phone] Adria Cisneros MD Unavailable [phone] Margaret Reyes [facility] Unavailable Unavailable Adria Cisneros MD Unavailable [phone] Encounter Details Date Type Department Care Team (Late st Contact Info) Description 01/15/2023 [facility] Medical [facility] Endocrinology Clinic [address] [address] Nini Patten MD [address] [place] [address] Social History Tobacco Use Types Packs/Day [...] Info) Description 05/25/2025 11:30 AM CDT Lab [facility] Laboratory [address] [place] [address] 07/29/2025 8:40 AM TECHNICAL MAINTENANCE TECHNICIAN Office Visit [facility] Eye [facility] [place] [address]326 [facility] 9[facility] 9A [place] [address] Kapil Kay MD [facility] [place] [address] 08/25/2025 1:00 PM TECHNICAL MAINTENANCE TECHNICIAN Lab [address] [address] 12/08/2025 1:00 PM CDT Virtual Visit [facility] [address] [place] [address] Adria Cisneros MD [address] [place] [address] documented as of this encounter Visit Diagnoses Not on filedocumented in this encounter Additional Health Concerns Assessment Noted Time PHQ-9 Depression Total Score: 4 12/25/19 23 2:25 PM CDT documented as of this encounter Care Teams Machine Packager Relationship Specialty Start Date End Date Luis Ambriz MD [address] [place] [address]013 PCP - General Family Medicine 02/16/22 Bola Amor, [facility], [facility] 180 [place] [address] Assigned Behavioral Health Provider 12/04/21 06/27/24 Shaan Ramirez MD [address] [place] [address] Assigned Surgical Provider 12/04/[address] MD [address] [place] [address] Assigned Rheumatology Provider 02/25/22 02/25/24 Nini Patten MD [address] [place] [address] 49649 Endocrinology, Diabetes, and Metabolism 08/29/22 Nini Patten MD [address] [place] [address] 955[address] Assigned Endocrinology Provider 01/20/23 11/25/24 [facility] 08/10/23 Adria Cisneros MD [address] [place] [address]285 Rheumatology 11/09/23 Adria Cisneros MD [address] [place] [address] 19414 Rheumatology 11/09/23 Adria Cisneros MD [address] [place] [address]8854 Assigned Rheumatology Provider 02/26/24 Margaret Reyes [facility] Assigned MTM Pharmacist 06/28/24 Adria Cisneros MD [address] [place] [address]94 Rheumatology 08/01/24 documented as of this encounter
--- OUTSIDE RECORDS SUMMARY | 2025-05-18 17:54 | XMS_ITS | Encounter Summary ---
Author Organization [place] Address [address] [place] [address] Care Team Providers Care Concrete Vibrator Operator Name Role Phone ZuleymaChristalromancamila Naranjo [facility], [facility] Unavailable [phone] Shaan Ramirez MD Unavailable [phone] Luis Ambriz MD Primary Care Provider [phone] MD Unavailable [phone] Nini Patten MD Unavailable [phone] Nini Patten MD Unavailable [phone] Margaret Reyes [facility] Unavailable Unavailable Adria Cisneros MD Unavailable [phone] Adria Cisneros MD Unavailable [phone] Adria Cisneros MD Unavailable [phone] Margaret Reyes [facility] Unavailable Unavailable Adria Cisneros MD Unavailable [phone] Encounter Details Date Type Department Care Team (Late st Contact Info) Description 02/24/2022 [facility] [place] [facility] [address] [address] MD Health [facility], Rheumatology [address] [place] [phone] Social History Tobacco Use Types Packs/Day [...] Info) Description 05/25/2025 11:30 AM CDT Lab [facility] [address] [place] [address] 07/29/2025 8:40 AM ELECTRIC RELAY TESTER Office Visit [facility] [address] 9[facility] [address] [place] [address] Kapil Kay MD [address]50 [place] [address] 08/25/2025 1:00 PM ELECTRIC RELAY TESTER Lab [address] [address] 12/08/2025 1:00 PM CDT Virtual Visit [facility] [address] [place] [phone] Adria Cisneros MD [address] [place] [address] documented as of this encounter Visit Diagnoses Not on filedocumented in this encounter Additional Health Concerns Assessment Noted Time PHQ-9 Depression Total Score: 6 02/03/20 22 9:26 AM CDT documented as of this encounter Care Teams Concrete Vibrator Operator Relationship Specialty Start Date End Date Luis Ambriz MD [address] [place] [address] PCP - General Family Medicine 02/16/22 Bola Amor, [facility], [facility] [address] [place] [address] Assigned Behavioral Health Provider 12/04/21 06/27/24 Shaan Ramirez MD [address] [place] [address] Assigned Surgical Provider 12/04/[address] MD [address] [place] [address] Assigned Rheumatology Provider 02/25/22 02/25/24 Nini Patten MD [address] [place] [address] Endocrinology, Diabetes, and Metabolism 08/29/22 Nini Patten MD [address] [place] [address] Assigned Endocrinology Provider 01/20/23 11/25/24 Margaret Reyes, [facility] 08/10/23 Adria Cisneros MD [address] [place] [address] Rheumatology 11/09/23 Adria Cisneros MD [address] [place] [address] Rheumatology 11/09/23 Adria Cisneros MD [address] [place] [address] Assigned Rheumatology Provider 02/26/24 Margaret Reyes [facility] Assigned MTM Pharmacist 06/28/24 Adria Cisneros MD [address] [place] [address] Rheumatology 08/01/24 documented as of this encounter
--- OUTSIDE RECORDS SUMMARY | 2025-05-18 17:55 | XMS_ITS | Encounter Summary ---
Author Organization [place] Address [address] [place] [address] Care Team Providers Care Call Or Contact Centre Manager Name Role Phone Shaan Ramirez MD Unavailable [phone] Luis Ambriz MD Primary Care Provider [phone] Nini Patten MD Unavailable [phone] Nini Patten MD Unavailable [phone] Margaret Reyes [facility] Unavailable Unavailable Adria Cisneros MD Unavailable [phone] Adria Cisneros MD Unavailable [phone] Adria Cisneros MD Unavailable [phone] Margaret Reyes [facility] Unavailable Unavailable Adria Cisneros MD Unavailable [phone] Encounter Details Date Type Department Care Team (Late st Contact Info) Description 10/01/2024 [facility] [place] [facility] [address] [place] [phone] [facility] Social History Tobacco Use Types Packs/Day Years [...] Info) Description 05/25/2025 11:30 AM CDT Lab [facility] [address] [place] [address] 07/29/2025 8:40 AM NEWS PRODUCTION ASSISTANT Office Visit [facility] [address] [facility] [address] [place] [address] Kapil Kay MD [address] [place] [address] 08/25/2025 1:00 PM NEWS PRODUCTION ASSISTANT Lab [facility] [address] [place] [phone] 12/08/2025 1:00 PM CDT Virtual Visit [facility] [address] [place] [address] [place] [phone] Adria Cisneros MD [address] [place] [address] documented as of this encounter Visit Diagnoses Not on filedocumented in this encounter Additional Health Concerns Assessment Noted Time PHQ-9 Depression Total Score: 5 08/01/20 24 7:42 AM NEWS PRODUCTION ASSISTANT documented as of this encounter Care Teams Call Or Contact Centre Manager Relationship Specialty Start Date End Date Luis Ambriz MD [address] [place] [phone] PCP - General Family Medicine 02/16/22 Shaan Ramirez MD [address] [place] [address] Assigned Surgical Provider 12/04/21 Nini Patten MD [address] [place] [address] Endocrinology, Diabetes, and Metabolism 08/29/22 Nini Patten MD [address] [place] [address] Assigned Endocrinology Provider 01/20/23 11/25/24 Margaret Reyes [facility] Pharmacist 08/10/23 Adria Cisneros MD [address] [place] [address] Rheumatology 11/09/23 Adria Cisneros MD [address] [place] [address] Rheumatology 11/09/23 Adria Cisneros MD [address] [place] [address] Assigned Rheumatology Provider 02/26/24 Margaret Reyes [facility] Assigned MTM Pharmacist 06/28/24 Adria Cisneros MD [address] [place] [address] Rheumatology 08/01/24 documented as of this encounter
--- OUTSIDE RECORDS SUMMARY | 2025-05-18 17:55 | XMS_ITS | Encounter Summary ---
Author Organization [place] Address [address] [place] [address] Care Team Providers Care Construction Worker Name Role Phone Shaan Ramirez MD Unavailable [phone] Luis Ambriz MD Primary Care Provider [phone] Nini Patten MD Unavailable [phone] Nini Patten MD Unavailable [phone] Margaret Reyes [facility] Unavailable Unavailable Adria Cisneros MD Unavailable [phone] Adria Cisneros MD Unavailable [phone] Adria Cisneros MD Unavailable [phone] Margaret Reyes [facility] Unavailable Unavailable Adria Cisneros MD Unavailable [phone] Encounter Details Date Type Department Care Team (Late st Contact Info) Description 09/17/2024 [facility] [place] [place] Medical Advice [facility] [address] [address] Adria Cisneros MD [address] [place] [address] Social History Tobacco Use Types Packs/Day [...] Info) Description 05/25/2025 11:30 AM CDT Lab [facility] [address] [place] [address] 07/29/2025 8:40 AM MANAGER STEEL Office [facility] [address] [facility] [address] [address] Kapil Kay MD [address]50 [place] [address] 08/25/2025 1:00 PM MANAGER STEEL Lab [facility] [address] [place] [address] 12/08/2025 1:00 PM CDT Virtual Visit [facility] [address] [place] [address] [place] [address] Adria Cisneros MD [address] [place] [address] documented as of this encounter Visit Diagnoses Not on filedocumented in this encounter Additional Health Concerns Assessment Noted Time PHQ-9 Depression Total Score: 5 08/01/20 24 7:42 AM MANAGER STEEL documented as of this encounter Care Teams Construction Worker Relationship Specialty Start Date End Date Luis Ambriz MD [address] [place] [address] PCP - General Family Medicine 02/16/22 Shaan Ramirez MD [address] [place] [address] Assigned Surgical Provider 12/04/21 Nini Patten MD 909 [place] [address] Endocrinology, Diabetes, and Metabolism 08/29/22 Nini Patten MD 9 [place] [address] Assigned Endocrinology Provider 01/20/23 11/25/24 Margaret Reyes [facility] Pharmacist 08/10/23 Adria Cisneros MD [address] [place] [address] Rheumatology 11/09/23 Adria Cisneros MD [address] [place] [address] Rheumatology 11/09/23 Adria Cisneros MD [address] [place] [address] Assigned Rheumatology Provider 02/26/24 Margaret Reyes [facility] Assigned MTM Pharmacist 06/28/24 Adria Cisneros MD [address] [place] [address] Rheumatology 08/01/24 documented as of this encounter
--- OUTSIDE RECORDS SUMMARY | 2025-05-18 17:55 | XMS_ITS | Clinical Summary ---
Author Organization [place] Address [address] [place] [address] Care Team Providers Care Physician Coder Name Role Phone Shaan Ramirez MD Unavailable [phone] Luis Ambriz MD Primary Care Provider [phone] Nini Patten MD Unavailable [phone] Margaret Reyes [facility] Unavailable Unavailable Adria Cisneros MD Unavailable [phone] Adria Cisneros MD Unavailable [phone] Adria Cisneros MD Unavailable [phone] Margaret Reyes [facility] Unavailable Unavailable Adria Cisneros MD Unavailable [phone] Allergies Active Allergy Reactions Criticality Noted Date Comments Doxycycline Nausea High 12/13/2023 Hydrocodone Hives,Itching High 05/12/2022 Hydrocodone-Acetaminophen Hives,Itching 015 Hydrocodone-Acetaminophen Hives,Itching 015 Lavandula Latifolia Cough,Other (See Comments) 11/29/2021 Lavender Oil Cough 11/28/2014 Medications * This document contains information received from the source organization and may not represent a complete record from that organization. rosuvastatin (CRESTOR) 10 MG tablet Take 1 tablet by mouth daily at 2 pm 3 Active Vitamin D3 (VITAMIN D, CHOLECALCIFEROL ,) [...] hr capsule 150 MG daily 4 Active busPIRone (BUSPAR) 15 MG tablet Take 15 mg by mouth. 5 Active hydrOXYzine HCl (ATARAX) 25 MG tablet Take one-half to one tablet (12.5-25mg) by mouth up to twice daily as needed for anxiety/ sleep 5 Active venlafaxine (EFFEXOR XR) 150 MG 24 hr capsule Take 150 mg by mouth daily. 5 Active losartan (COZAAR) 100 MG tablet Take 100 mg by mouth daily. Active diclofenac (VOLTAREN) 1 % topical gelIndications: Finger pain, right Apply 2 g topically 4 times daily. For joint pain 50 g 1 5 Active tofacitinib (XELJANZ XR) 11 MG 24 hr tabletIndicatio ns:Hidradenitis suppurativa,Pso riasis,Intermed iate uveitis of both eyes Take 1 tablet (11 mg) by mouth daily. Hold for signs of infection, then seek medical attention. 30 tablet 8 5 Active methotrexate 2.5 MG tabletIndicatio ns:Hidradenitis suppurativa,Pso riasis,Intermed iate uveitis of both eyes Take 5 tablets (12.5 mg) by mouth every 7 days. 60 tablet 3 5 Active folic acid (FOLVITE) 1 MG tabletIndicatio ns:Hidradenitis suppurativa,Pso riasis,Intermed iate uveitis of both eyes Take 1 tablet (1 mg) by mouth daily. 90 tablet 3 5 Active Active Problems Problem Noted Date [...] Encounters Date Type Department Care Team Description 04/17/2025 MyC Medical Advice [facility] [address] [phone] [facility] Results Follow-Up [facility] [address] [phone] Adria Cisneros MD Subj: Message about your results 03/12/2025 2:50 PM CDT Ancillary Procedure [address] [address] Adria Cisneros MD Finger pain, right 03/12/2025 Travel 03/09/2025 2:00 PM CDT Virtual Visit [address] [phone] Adria Cisneros MD Finger pain, right (Primary Dx); Hidradenitis suppurativa; Psoriasis; Intermediate uveitis of both eyes from Last 3 Months Immunizations Immunization Administration Dates Next Due COVID-19 Monovalent 18+ (Moderna) 07/20/2021 Influenza (IIV3) PF 04/16/2014 Influenza (prior to 2023) 06/16/2015 Influenza Vaccine 18-64 (Flublok) 05/26/2022, Influenza Vaccine >6 months,quad, PF 04/2020,05/16/2018,08/07/2017,2015 TDAP (Adacel,Boostrix) 06/18/2014,01/01/2014 Family History Medical History Relation Comments Diabetes Cousin Coronary Artery Disease Father Depression Father Hyperlipidemia Father Hypertension Father Mental Illness Father ADHD Obesity Father Substance Abuse Father Smoker Coronary Artery Disease Paternal Grandfather Diabetes Paternal Grandfather Breast Cancer Paternal Grandmother Coronary Artery Disease Paternal Grandmother Diabetes Paternal Grandmother Depression Sister Obesity Sister Glaucoma No family hx of Macular Degeneration No family hx of Relation Status Comments Cousin Alive Father Alive Paternal Grandfather Paternal Grandmother Alive Sister Alive Social History Tobacco Use Types Packs/Day Years [...] 106.6 kg (235 lb) 08/01/2024 7:40 AM DEVELOPMENTAL WRITING INSTRUCTOR Height 167.6 cm (5' 6) 08/01/2024 7:40 AM DEVELOPMENTAL WRITING INSTRUCTOR Body Mass Index 37.93 08/01/2024 7:40 AM DEVELOPMENTAL WRITING INSTRUCTOR Plan of Treatment Upcoming Encounters Date Type Department Care Team (Late st Contact Info) Description 05/25/2025 11:30 AM CDT [facility] [address] [place] [address] 07/29/2025 8:40 AM DEVELOPMENTAL WRITING INSTRUCTOR Office Visit [facility] Building [address] [facility] 9[facility] [address] [place] [address] Kapil Kay MD [address] [place] [address] 08/25/2025 1:00 PM DEVELOPMENTAL WRITING INSTRUCTOR Lab [facility] [address] [place] [address] 12/08/2025 1:00 PM CDT Virtual Visit [facility] [address] [place] [phone] Adria Cisneros MD 515 [facility] [address] [place] [address] Health Maintenance Due Date Last Done Comments [...] ZOSTER VACCINE (2 of 2) 09/15/2024 07/21/2024 PHQ-9 01/30/2025 08/01/2024, 05/2 09/2022, 10/30/2022, Additional history exists COVID-19 VACCINE ( season) 2025 07/21/2024, 10/19/2022, 07/20/2021, Additional history exists INFLUENZA VACCINE (#1) 2025 , 05/26/2022, 04/14/2020, Additional history exists EYE EXAM 02/09/2026 02/09/2025, 03/0 10/2024, 10/06/2024, Additional history exists BMP 02/13/2026 02/13/2025, 01/04, 08/05/2023, Additional history exists LIPID 02/13/2026 02/13/2025, 05/06, 01/14/2024 HIV SCREENING Completed 12/30/2021 HEPATITIS C SCREENING Completed 01/14/2024, 022 PNEUMOCOCCAL VACCINE: PEDIATRICS (0 to 5 YEARS) AND AT-RISK PATIENTS (6 to 49 YEARS) Completed 04/24/2024 HPV VACCINE (No Doses Required) Completed MENINGITIS VACCINE Aged Out No longer eligible based on patient's age to complete this topic Procedures Procedure Name Priority Date/Time Associated Diagnosis Comments XR HAND RIGHT G/E 3 VIEWS Routine 03/12/2025 2:34 PM CDT Finger pain, right LIPID REFLEX TO DIRECT LDL PANEL Routine 02/13/2025 9:17 AM CDT High risk medication use COMPREHENSIVE METABOLIC PANEL Routine 02/13/2025 9:17 AM CDT High risk medication use HEPATITIS C ANTIBODY Routine 01/14/2024 11:14 AM CDT High risk medication use ALBUMIN AND CREATININE WITH RATIO RANDOM URINE QUANTITATIVE Routine 02/02/2023 11:59 AM CDT Type 2 diabetes mellitus without complication, without long-term current use of insulin (H) HIV ANTIGEN ANTIBODY COMBO Routine 12/30/2021 9:15 AM CDT EYE EXAM - HIM SCAN 11/28/2021 1 2:00 AM CDT from Last 3 Months or Most Recently Relevant to Health Maintenance Results * XR Hand Right G/E 3 Views (03/12/2025 2:34 PM CDT) Anatomical Region Laterality Modality Hand, Wrist Right Computed Radiogr aphy 03/12/2025 2:34 PM CDT Impressions 03/13/2025 11:22 AM CDT IMPRESSION: Normal joint spaces and alignment. No fracture. Narrative 03/13/2025 11:22 AM CDT EXAM: XR HAND RIGHT G/E 3 VIEWS LOCATION: [facility] DATE: 03/12/2025 INDICATION: R 2nd MCP painful; history of psoriasis COMPARISON: None. Procedure Note eBrt Hawkins, DO - 03/13/2025 EXAM: XR HAND RIGHT G/E 3 VIEWS LOCATION: [facility] DATE: 03/12/2025 INDICATION: R 2nd MCP painful; history of psoriasis COMPARISON: None. IMPRESSION: Normal joint spaces and alignment. No fracture. Adria Cisneros MD [facility] ORDKenneth AVELAR Final Result * Lipid panel reflex to direct LDL Fasting (02/13/2025 9:17 AM CDT) Cholesterol 154 <200 mg/dL 02/13/2025 3:58 PM CDT [facility] Triglycerides 99 <150 mg/dL 02/13/2025 3:58 PM CDT [facility] Direct Measure HDL 59 >=50 mg/dL 2024 3:58 PM CDT [facility] LDL Cholesterol Calculated 75 <100 mg/dL 02/13/2025 3:58 PM CDT [facility] Comment:LDL calculated using the Friedewald equation. Non HDL Cholesterol 95 <130 mg/dL 02/13/2025 3:58 PM CDT [facility] Patient Fasting > 8hrs? Yes 02/13/2025 3:58 PM CDT [facility] Blood BLOOD SPECIMEN / Unknown Venipuncture / Unknown 02/13/2025 9:17 AM CDT 02/13/2025 9:17 AM CDT Narrative [facility] - 02/13/2025 3:58 PM CDT Cholesterol Desirable: < 200 mg/dL [...] mg/dL Very High: >= 220 mg/dL us Shaan Ramirez MD LAB - BLOOD ORDERABLES Final Result [facility] [address] [facility], Room [address] [phone] * (ABNORMAL) Comprehensive metabolic panel (02/13/2025 9:17 AM CDT) Sodium 140 135 - 145 mmol/L 02/13/2025 3:58 PM CDT [facility] Potassium 4.3 3.4 - 5.3 mmol/L 02/13/2025 3:58 PM CDT [facility] Carbon Dioxide (CO2) 24 22 - 29 mmol/L 02/13/2025 3:58 PM CDT [facility] Anion Gap 12 7 - 15 mmol/L 02/13/2025 3:58 PM CDT [facility] Urea Nitrogen 12.5 6.0 - 20.0 mg/dL 02/13/2025 3:58 PM CDT [facility] Creatinine 0.75 0.51 - 0.95 mg/dL 02/13/2025 3:58 PM CDT [facility] GFR Estimate >90 >60 mL/min/1.7 3m2 02/13/2025 3:58 PM CDT [facility] Comment:eGFR calculated us2020 CKD-EPI equation. Calcium 9.4 8.8 - 10.4 mg/dL 02/13/2025 3:58 PM CDT [facility] Chloride 104 98 - 107 mmol/L 02/13/2025 3:58 PM CDT [facility] Glucose 115(H) 70 - 99 mg/dL 02/13/2025 3:58 PM CDT [facility] Alkaline Phosphatase 62 40 - 150 U/L 02/13/2025 3:58 PM CDT [facility] AST 39 0 - 45 U/L 02/13/2025 3:58 PM CDT [facility] ALT 41 0 - 50 U/L 02/13/2025 3:58 PM CDT [facility] Protein Total 6.8 6.4 - 8.3 g/dL 02/13/2025 3:58 PM CDT [facility] Albumin 4.2 3.5 - 5.2 g/dL 02/13/2025 3:58 PM CDT [facility] Bilirubin Total 0.8 <=1.2 mg/dL 02/13/2025 3:58 PM CDT [facility] Patient Fasting > 8hrs? Yes 02/13/2025 3:58 PM CDT [facility] Blood BLOOD SPECIMEN / Unknown Venipuncture / Unknown 02/13/2025 9:17 AM CDT 02/13/2025 9:17 AM CDT us Shaan Ramirez MD LAB - BLOOD ORDERABLES Final Result [facility] [address] [facility], Room [address] [phone] * Hepatitis C antibody (01/14/2024 11:14 AM CDT) Pathologist [facility] Hepatitis C Antibody Nonreactive Nonreactive 01/15/2024 9:38 [...] BLOOD ORDERABLES Maisha l Result [facility] [address] [facility], [address] [place] [address] * Albumin Random Urine Quantitative with Creat [...] control, and institution of therapy with an [id number] (ROBERTO) inhibitor (if the patient can tolerate it). Urine MID-STREAM URINE SPECIMEN / Unknown Non-blood Collection / Unknown 02/02/2023 11:59 AM CDT 02/02/2023 11:59 AM CDT us Nini Patten MD LAB - URINE ORDERABLES Final Result [facility] [address] [facility], [address] [place] [address], [facility] [phone] * HIV Antigen Antibody Combo (12/30/2021 9:15 [...] Most Recently Relevant to Health Maintenance Insurance [employer] [place] [id number] [employer] [facility] * Guarantor: Amelia Sr Account Type Relation to Patient Date of Phone Billing Address Medication Therapy Self [address] [place] [id number] [employer] Care Teams Physician Coder Relationship Specialty Start Date End Date Luis Ambriz MD [address] [place] [address] PCP - General Family Medicine 02/16/22 Shaan Ramirez MD [address] [place] [address] Assigned Surgical Provider 12/04/21 Nini Patten MD [address] [place] [address] Endocrinology, Diabetes, and Metabolism 08/29/22 Margaret Reyes [facility] Pharmacist 08/10/23 Adria Cisneros MD [address] [place] [address] Rheumatology 11/09/23 Adria Cisneros MD [address] [place] [address] Rheumatology 11/09/23 Adria Cisneros MD [address] [place] [address] Assigned Rheumatology Provider 02/26/24 Margaret Reyes [facility] Assigned MTM Pharmacist 06/28/24 Adria Cisneros MD [address] [place] [address] Rheumatology 08/01/24
--- OUTSIDE RECORDS SUMMARY | 2025-05-18 17:55 | XMS_ITS | Encounter Summary ---
Author Organization [place] Address [address] [place] [address] Care Team Providers Care Epic Specialist Name Role Phone ZuleymaBola [facility] Unavailable + [phone] Shaan Ramirez MD Unavailable [phone] Luis Ambriz MD Primary Care Provider [phone] MD Unavailable [phone] Nini Patten MD Unavailable [phone] Nini Patten MD Unavailable [phone] Margaret Reyes [facility] Unavailable Unavailable Adria Cisneros MD Unavailable [phone] Adria Cisneros MD Unavailable [phone] Adria Cisneros MD Unavailable [phone] Margaret Reyes [facility] Unavailable Unavailable Adria Cisneros MD Unavailable [phone] Encounter Details Date Type Department Care Team (Late st Contact Info) Description 12/30/2021 External Order Results [facility] [address] [place] [address] Outside, Provider High risk medication use Social [...] Info) Description 05/25/2025 11:30 AM CDT Lab [facility] [address] [place] [address] 07/29/2025 8:40 AM SENIOR CENTER MANAGER Office Visit [facility] 516 [facility] 9[facility] [address] [place] [address] Kapli Kay MD [address]50 [place] [address] 08/25/2025 1:00 PM SENIOR CENTER MANAGER Lab [facility] [address] [place] [address] 12/08/2025 1:00 PM CDT Virtual Visit [facility] [address] [address] [place] [address] Adria Cisneros MD [address] [place] [address] documented as of this encounter Procedures Procedure [...] Provider Outside LABORATORY Edited Result - Final Performing Organization Address City/[facility]/ZIP Co de Phone Number BREEZE PFT NON-INTERFACED [...] 12/30/2021. Provider Outside LAB - BLOOD ORDERABLES Edited R [employer] - Final Performing Organization Address [facility]/ZIP Co de Phone Number WOODY PFT NON-INTERFACED (ONBASE SCANS) * Hepatitis C antibody (12/30/2021 9:15 AM CDT) Hepatitis C Antibody (External) NEGATIVE NEGATIVE NON-INTERFACE D (ONBASE SCANS) Blood 12/30/2021 9:15 AM CDT Narrative WOODY PFT - 12/30/2021 3:39 PM CDT Verified by Deangelo Carlson on 12/30/2021. Provider Outside LAB - BLOOD ORDERABLES Edited R [employer] - Narvalous Performing Organization Address [facility] de Phone Number WOODY PFT NON-INTERFACED (ONBASE SCANS) * (ABNORMAL) Comprehensive metabolic panel (12/30/2021 9:15 AM CDT) Pathologist [facility] ALT (External) 35 4 - 35 U/L [...] - Final WOODY PFLauro NON-INTERFACED (ONBASE SCANS) documented in this encounter Visit Diagnoses Diagnosis High risk medication use Encounter for long-term (current) use of other medications documented in this encounter Additional Health Concerns Assessment Noted Time PHQ-9 Depression Total Score: 10 022 12:04 PM CDT documented as of this encounter Care Teams Epic Specialist Relationship Specialty Start Date End Date Luis Ambriz MD [address] [place] [address] PCP - General Family Medicine 02/16/22 Bola Amor, STEELSCOPE OPERATOR, [facility] [address] [place] [address] Assigned Behavioral Health Provider 12/04/21 06/27/24 Shaan Ramirez MD [address] [place] [address] Assigned Surgical Provider 12/04/[address] MD [address] [place] [address] Assigned Rheumatology Provider 02/25/22 02/25/24 Nini Patten MD [address] [place] [address] Endocrinology, Diabetes, and Metabolism 08/29/22 Nini Patten MD [address] [place] [address] Assigned Endocrinology Provider 01/20/23 11/25/24 Margaret Reyes RPH Pharmacist 08/10/23 Adria Cisneros MD [address] [place] [address] Rheumatology 11/09/23 Adria Cisneros MD [address] [place] [address] Rheumatology 11/09/23 Adria Cisneros MD [address] [place] [address] Assigned Rheumatology Provider 02/26/24 Margaret Reyes RPH Assigned MTM Pharmacist 06/28/24 Adria Cisneros MD [address] [place] [address] Rheumatology 08/01/24 documented as of this encounter
--- OUTSIDE RECORDS SUMMARY | 2025-05-18 17:55 | XMS_ITS | Clinical Summary ---
Author Organization [facility] Address [address] [place] [address] Care Team Providers Care Design Engineer Name Role Phone Luis Ambriz MD Primary Care Provider [phone] Allergies Active Allergy Reactions Criticality Noted Date [...] cream. 453.6 g 1 07/25/20 24 Active losartan 100 mg tablet Take 100 [...] mg) by mouth once daily. 30 Capsule 04/18/20 25 025 Active lisdexamfetamine (Vyvanse) 30 mg capsuleIndication s:Attention deficit hyperactivity disorder (ADHD), combined type Take 1 Capsule (30 mg) by mouth once daily. 30 Capsule 05/18/20 25 Active lisdexamfetamine (Vyvanse) 30 mg capsuleIndication s:Attention deficit hyperactivity disorder (ADHD), combined type Take 1 Capsule (30 mg) by mouth once daily. 30 Capsule 03/19/20 25 025 Active Problems Problem Noted Date Diagnosed Date Controlled substance agreeme nt signed, By Yamilka Zelaya, DNP, SPORTS PHOTOGRAPHER, SHORT PIECE HANDLER, psychiatry on 01/21/2024 / Meredith Bedolla LPN 05/13/2024 Overview (05/13/2024): Controlled substance agreement signed 06/09/2021 Overview (06/21/2021): Signed 06-09-2021 Dr. Jennifer Patterson MD Severe episode of recurrent major depressive disorder, without psychotic features PTSD (post-traumatic stress disorder) Attention deficit hyperactiv ity disorder (ADHD), combined type Encounters Date Type Department Care Team Description 03/23/2025 10:50 AM CDT Office Visit [facility] [address] [place] [address] Domonique Wilcox MD Derm Problem 03/22/2025 Travel 03/19/2025 9:30 AM CDT Office Visit [facility] [address] [place] [address] Yamilka Zelaya NP Follow Up; Medication Management 03/19/2025 Travel 03/14/2025 Travel from Last 3 Months Immunizations Immunization [...] Answer Date Recorded PHQ-2 TOTAL SCORE 2 03/19/2025 Alcohol Use Answer Date Recorded How often [...] PM CDT Legal Sex Female 12:55 PM GAS REGULATOR REPAIRER HELPER Gender Identity Female 05/02/2020 12:08 PM CDT Sexual Orientation Bisexual 05/02/2020 12 :08 PM CDT Obstetrics History Last Filed Vital Signs Vital Sign Reading Time Taken Comments Blood Pressure 137/85 03/19/2025 9:35 AM CDT Pulse 96 01/26/2025 1:44 PM CDT Temperature 36.7 C (98 F) 01/22/2015 8:22 AM CDT Respiratory Rate - - Oxygen Saturation 97% 01/22/2015 8:22 AM CDT Inhaled Oxygen Concentration - - Weight 117.4 kg (258 lb 12.8 oz) 03/19/2025 9:28 AM CDT Height 167.6 cm (5' 6) 01/25/2025 11:1 9 PM CDT Body Mass Index 41.77 01/25/2025 11:19 PM CDT Plan of Treatment Upcoming Encounters Date Type Department Care Team (Late st Contact Info) Description 06/01/2025 1:30 PM CDT Office Visit [facility] [address] [place] [address] Yamilka Zelaya, JA [address] [place] [address] 07/27/2025 10:00 AM GAS REGULATOR REPAIRER HELPER Office Visit [facility] [address] [phone] [place] [address] [place], [place] [phone] Health Maintenance Due Date Last Done Comments [...] COVID-19 vaccine series (6 - Moderna risk season) 2025 07/21/2024, 10/19/2022, 07/20/2021, Additional history exists Influenza Vaccine (#1) 2025 2, 04/14/2020, 2019, Additional history exists Depression screening for age 12+ 03/19/2026 03/19/2025, 01/26/2025, 12/11/2024, Additional history exists Lipids for age 45-75 08/07/2027 08/07/2022, 07/14/2021, 06/28/2020 RSV vaccine for adults or (1 - 1-dose 75+ series) 2052 Pneumococcal series for age 6-49 Aged Out No longer eligible based on patient's age to complete this topic Procedures Procedure Name Priority Date/Time Associated Diagnosis Comments PATH TISSUE EXAM Routine 03/23/2025 11:0 0 AM CDT Neoplasm of uncertain behavior LC LIPID PANEL Routine 08/07/2022 10:04 AM GAS REGULATOR REPAIRER HELPER Other middle or intermediate school principal (current) drug therapy POOL MANAGER THIN PREP PAP SCREEN IMAGED Routine 07/21/2019 5:00 PM GAS REGULATOR REPAIRER HELPER from Last 3 Months or Most Recently Relevant to Health Maintenance Results * PATH TISSUE EXAM (03/23/2025 11:00 AM CDT) Case Report Pathology Report Case: [id number] Authorizing Provider: Domonique Wilcox MD Collected: 03/23/2025 1100 Ordering Location: [facility] Received: 03/23/2025 1455 Specialty Clinic Pathologist: Homero Cheatham MD Specimen: Skin, left nasal ala 03/26/2025 12:13 PM CDT [facility] Final Diagnosis SKIN, LEFT NASAL ALA, BIOPSY: 1. Consistent with benign fibrous papule (angiofibroma) 2. Negative for malignancy 03/26/2025 12:13 PM CDT [facility] at 1212 CDT Clinical Information Angiofibroma. 03/26/2025 12:13 PM CDT [facility] Gross Description A) Received in formalin, labeled with the patient's name and left nasal ala, is a 0.4 x 0.4 x 0.1 cm white to light larsen skin fragment, inked green and bisected. TRB 03/24/2025 03/26/2025 12:[address] [facility] Microscopic Description The final diagnosis is based on microscopic examination of appropriate sections of all specimens. There is a benign dome-shaped skin growth with fibrovascular stroma and benign squamous surface. The presence of green ink is confirmed on tissue sections. 03/26/2025 12:[address] [facility] Additional Information Interpreted at [facility] - [address] [facility] [address] [address] 03/26/2025 12:[address] [facility] Other SPECIMEN FROM SKIN / Unknown Non-Blood / Unknown 03/23/2025 11:00 AM CDT 03/23/2025 2:55 PM CDT us Domonique Wilcox MD PATHOLOGY/CYTOLOGY Final Result [facility] [address] [place] [address], * (ABNORMAL) LC LIPID PANEL (08/07/2022 10:04 AM GAS REGULATOR REPAIRER HELPER) Cholesterol, Total 215(H) 100 - 199 mg/dL 08/10/2022 4:07 PM GAS REGULATOR REPAIRER HELPER [facility] Triglycerides 209(H) 0 - 149 mg/dL 08/10/2022 4:[address] [facility] ([facility]) HDL Cholesterol 52 >39 mg/dL 4:[address] [facility] ([facility]) VLDL Cholesterol Nick 37 5 - 40 mg/dL 08/10/2022 4:[address] [facility] ([facility]) LDL Chol Calc (NIH) 126(H) 0 - 99 mg/dL 08/10/2022 4:[address] [facility] ([facility]) Blood BLOOD SPECIMEN / Unknown Butterfly / Unknown 08/07/2022 10:04 AM GAS REGULATOR REPAIRER HELPER 08/07/2022 10:07 AM GAS REGULATOR REPAIRER HELPER Narrative [facility] ([facility]) - 08/10/2022 4:07 PM GAS REGULATOR REPAIRER HELPER Performed at: [address] [place] [address] [place] [address] [id number] Certified Caregiver: Ryley Lewis MD, Phone: [phone] us Yamilka Zelaya COMMERCIAL LITIGATION PARALEGAL SEND OUTS Final Re sult [facility] ([facility]) [address] [place] [address], * POOL MANAGER THIN PREP PAP SCREEN IMAGED (07/21/2019 5:00 PM GAS REGULATOR REPAIRER HELPER) Case Report Gynecologic Cytology Report Case: [id number] Authorizing Provider: Luis Ambriz MD Collected: 07/21/2019 1700 Ordering Location: [facility] Received: 07/22/2019 1711 First Screen: Mercedes Guillen Specimen: POOL MANAGER ThinPrep Vial Screening, Cervical/Vaginal 08/04/2019 4:35 PM GAS REGULATOR REPAIRER HELPER [facility] INTERPRETATION/ RESULT NEGATIVE FOR INTRAEPITHELIAL LESION OR MALIGNANCY (NIL) (none) 08/04/2019 4:35 PM GAS REGULATOR REPAIRER HELPER [facility] EN[facility]AL [facility] at 1635 GAS REGULATOR REPAIRER HELPER SPECIMEN ADEQUACY Satisfactory for evaluation Endocervical component present Scant cellularity 08/04/2019 4:35 PM GAS REGULATOR REPAIRER HELPER [facility] HPV REQUEST HPV and PAP 08/04/2019 4:35 PM GAS REGULATOR REPAIRER HELPER [facility] Date of LMP 04/11/2019 08/04/2019 4:35 PM GAS REGULATOR REPAIRER HELPER [facility] Last Pap Date 08/11/2016 08/04/2019 4:35 PM GAS REGULATOR REPAIRER HELPER [facility] Last Pap Result NIL 9 4:35 PM GAS REGULATOR REPAIRER HELPER [facility] Additional Information 08/04/2019 4:35 PM [facility] Comment: Interpreted at [facility] - [address], [place] [address] Automated Review Successful 08/04/2019 4:35 PM GAS REGULATOR REPAIRER HELPER [facility] Comment:Specimen processed s uccessfully by automated disk sharpener device, ThinPrep Imaging System, [email or web address] ANCILLARY TESTING POOL MANAGER HPV Ordered, Please see separate report 08/04/2019 4:35 PM GAS REGULATOR REPAIRER HELPER [facility] Note The pap test is a screening technique, not a diagnostic procedure. It is used primarily to screen for squamous cancers and precursor lesions. Published studies have shown that it is subject to both false negative and false positive results. The pap test should not be used as the sole means to diagnose or exclude pre-malignant and malignant lesions. 08/04/2019 4:35 PM GAS REGULATOR REPAIRER HELPER [facility] Other (Cervical/Vagina l) 07/21/2019 5:00 PM GAS REGULATOR REPAIRER HELPER 07/22/2019 5:11 PM GAS REGULATOR REPAIRER HELPER us Luis Ambriz MD PATHOLOGY/CYTOLOGY Final Resul t [facility] [address] [place] [address], [place] from Last 3 Months or Most Recently Relevant to Health Maintenance Insurance [facility] Care Teams Design Engineer Relationship Specialty Start Date End Date Luis Ambriz MD [address] [place] [address] PCP - General Family Practice 05/11/20
--- OUTSIDE RECORDS SUMMARY | 2025-05-18 17:55 | XMS_ITS | Encounter Summary ---
Author Organization [place] Address [address] [place] [address] Care Team Providers Care Energy Project Manager Name Role Phone Shaan Ramirez MD Unavailable [phone] Luis Ambriz MD Primary Care Provider [phone] Nini Patten MD Unavailable [phone] Margaret Reyes [facility] Unavailable Unavailable Adria Cisneros MD Unavailable [phone] Adria Cisneros MD Unavailable [phone] Adria Cisneros MD Unavailable [phone] Margaret Reyes [facility] Unavailable Unavailable Adria Cisneros MD Unavailable [phone] Encounter Details Date Type Department Care Team (Late st Contact Info) Description 01/16/2025 [facility] [address] [place] [address] Mecca Vogel Social History Tobacco Use Types [...] 11:30 AM CDT Lab [facility] [address] [place] [address] 07/29/2025 8:40 AM FILTER SCREEN CLEANER Office Visit [facility] 516 [facility] [address] [address] Kapil Kay MD [address]50 [place], [place] [address] 08/25/2025 1:00 PM FILTER SCREEN CLEANER Lab [address] [address] 12/08/2025 1:00 PM CDT Virtual Visit [facility] [address] [place] [address] [place] [address] Adria Cisneros MD [address] [place] [address] 644725 documented as of this encounter Visit Diagnoses Not on filedocumented in this encounter Additional Health Concerns Assessment Noted Time PHQ-9 Depression Total Score: 5 08/01/20 7:42 AM FILTER SCREEN CLEANER documented as of this encounter Care Teams Energy Project Manager Relationship Specialty Start Date End Date Luis Ambriz MD [address] [place] [address] PCP - General Family Medicine 02/16/22 Shaan Ramirez MD [address] [place] [address]79 Assigned Surgical Provider 12/04/21 Nini Patten MD [address] [place] [address] Endocrinology, Diabetes, and Metabolism 08/29/22 Margaret Reyes [facility] Pharmacist 08/10/23 Adria Cisneros MD [address] [place] [address] Rheumatology 11/09/23 Adria Cisneros MD [address] [place] [address] 653555 Rheumatology 11/09/23 Adria Cisneros MD [address] [place] [address] 559195 Assigned Rheumatology Provider 02/26/24 Margaret Reyes [facility] Assigned MTM Pharmacist 06/28/24 Adria Cisneros MD [address] [place] [address]1635 Rheumatology 08/01/24 documented as of this encounter
--- OUTSIDE RECORDS SUMMARY | 2025-05-18 17:55 | XMS_ITS | Encounter Summary ---
Author Organization [place] Address [address] [place] [address] Care Team Providers Care Engineering And Development Director Name Role Phone Shaan Ramirez MD Unavailable [phone] Luis Ambriz MD Primary Care Provider [phone] Nini Patten MD Unavailable [phone] Nini Patten MD Unavailable [phone] Margaret Reyes [facility] Unavailable Unavailable Adria Cisneros MD Unavailable [phone] Adria Cisneros MD Unavailable [phone] Adria Cisneros MD Unavailable [phone] Margaret Reyes [facility] Unavailable Unavailable Adria Cisneros MD Unavailable [phone] Encounter Details Date Type Department Care Team (Late st Contact Info) Description 08/19/2024 [facility] [address] [address] Adria Cisneros MD [address] [place] [address] Social History Tobacco Use Types Packs/Day [...] Info) Description 05/25/2025 11:30 AM CDT Lab [facility] [address] [place] [address] 07/29/2025 8:40 AM GROUP PROGRAM MANAGER Office Visit [facility] 516 [facility] [address] [address] Kapil Kay MD [address] [place] [address] 08/25/2025 1:00 PM GROUP PROGRAM MANAGER Lab [facility] [address] [place] [address] 12/08/2025 1:00 PM CDT Virtual Visit [facility] [address] [place] [address] [place] [address] Adria Cisneros MD [address] [place] [address] documented as of this encounter Visit Diagnoses Not on filedocumented in this encounter Additional Health Concerns Assessment Noted Time PHQ-9 Depression Total Score: 5 08/01/20 24 7:42 AM GROUP PROGRAM MANAGER documented as of this encounter Care Teams Engineering And Development Director Relationship Specialty Start Date End Date Luis Ambriz MD [address] [place] [address] PCP - General Family Medicine 02/16/22 Shaan Ramirez MD [address] [place] [address] Assigned Surgical Provider 12/04/21 Nini Patten MD [address] [place] [address] Endocrinology, Diabetes, and Metabolism 08/29/22 Nini Patten MD [address] [place] [address] Assigned Endocrinology Provider 01/20/23 11/25/24 Margaret Reyes [facility] Pharmacist 08/10/23 Adria Cisneros MD [address] [place] [address] Rheumatology 11/09/23 Adria Cisneros MD [address] [place] [address] Rheumatology 11/09/23 Adria Cisneros MD [address] [place] [address] Assigned Rheumatology Provider 02/26/24 Margaret Reyes [facility] Assigned MTM Pharmacist 06/28/24 Adria Cisneros MD [address] [place] [place] [address] Rheumatology 08/01/24 documented as of this encounter
[2025-05-18 18:03] VITALS: BP 135/84; PULSE 88; RESP 16; TEMP 36.6; O2SAT 98; BMI 42.4
--- NOTE | 2025-05-18 18:27 | ED.ANIMALBIT ---
HPI - Animal Bite General Chief Complaint: Animal Bite Stated Complaint: cat bite Time Seen by Provider: 05/18/25 17:56 History of Present Illness HPI narrative: This 49-year-old female comes in with a cat bite to her right thumb that occurred yesterday. This was a feral cat that the patient was attempting to find information about this CT that was hanging around another person's property. The patient had a chip reader and was able to recognize that the CT did not have a chip for identification. In this process she did get bit on her right hand and now is having some erythema and decreased range of motion. The cat is Patiño but appeared well but cannot be observed or tested for rabies. The patient initially went to urgent care and was sent here for rabies series of treatments. Related Data Home Medications ?Medication ?Instructions ?Recorded ?Confirmed folic acid 1 mg tablet 1 mg PO DAILY 04/06/22 05/18/25 methotrexate sodium 2.5 mg tablet 12.5 mg PO .1 x week 07/20/23 05/18/25 lisdexamfetamine 30 mg capsule 30 mg PO DAILY 12/13/23 05/18/25 buspirone 15 mg tablet 15 mg PO BID 03/16/25 05/18/25 diclofenac sodium 1 % topical gel 2 g topical QID PRN joint pain 03/16/25 05/18/25 hydrocortisone 2.5 % topical cream 1 applic topical BID PRN 03/16/25 05/18/25 hydroxyzine HCl 25 mg tablet 12.5 - 25 mg PO Q8H PRN insomnia 03/16/25 05/18/25 tofacitinib 11 mg tablet,extended 11 mg PO DAILY 03/16/25 05/18/25 release 24 hr (Xeljanz XR) venlafaxine 150 mg 150 mg PO DAILY 03/16/25 05/18/25 capsule,extended release 24 hr Previous Rx's ?Medication ?Instructions ?Recorded blood sugar diagnostic (Accu-Chek #100 ea 01/24/24 Guide test strips) lancets (Accu-Chek Softclix #200 ea 01/24/24 Lancets) cholecalciferol (vitamin D3) 50 50 mcg PO QDAY #90 caps 05/16/24 mcg (2,000 unit) capsule clotrimazole 1 % topical cream 1 applic topical BID 2 weeks #45 07/21/24 grams losartan 100 mg tablet 100 mg PO DAILY #90 tabs 03/16/25 rosuvastatin 10 mg tablet 10 mg PO DAILY #90 tabs 03/16/25 semaglutide 0.25 mg or 0.5 mg (2 0.5 mg (0.736 mL) subcut QWEEK #3 03/16/25 mg/3 mL) subcutaneous pen injector mL (Ozempic) amoxicillin 875 mg-potassium 1 tab PO BID #14 tabs 05/18/25 clavulanate 125 mg tablet Allergies Allergy/AdvReac Type Severity Reaction Status Date / Time hydrocodone Allergy Mild Itching Verified 05/18/25 18:13 doxycycline AdvReac Severe Nausea Verified 05/18/25 18:13 Review of Systems Status of ROS: Reports: 10 or more systems reviewed and unremarkable except as noted in History and below Narrative: Constitutional: No fevers, no weight gain or loss. Eyes: No discharge. No vision changes. HENT: No congestion, no sore throat, no ear pain. Cardiovascular: No chest pain, no palpitations. Respiratory: No shortness of breath, no wheezes, no cough. Gastrointestinal: No abdominal pain, no vomiting, no diarrhea. Genitourinary: No dysuria, no hematuria. Musculoskeletal: Cat bite to the right thumb and hand. The right thumb is erythematous with swelling and decreased range of motion. Skin: No rashes, no pruritis. Neurological: No dizziness, weakness, sensory change, speech change. Endo/Heme/Allergies: No bruising or bleeding. No polydipsia. Pysch: no suicidality, no anxiety, no insomnia. All other systems reviewed and are negative. [facility] Medical History (Reviewed 10/20/24 @ 10:56 by Trini Dsouza, PROOF TECHNICIAN HELPER, SUPERVISOR ASSEMBLY ROOM) Fatigue ?R53.83 - Other fatigue (ICD-10) Excessive daytime sleepiness ?G47.19 - Other hypersomnia (ICD-10) Psoriasis ?L40.9 - Psoriasis, unspecified (ICD-10) Staph infection ?B95.8 - Unspecified staphylococcus as the cause of diseases classified elsewhere (ICD-10) Hypercholesteremia ?E78.00 - Pure hypercholesterolemia, unspecified (ICD-10) High risk medication use ?Z79.899 - Other continuous churn buttermaker (current) drug therapy (ICD-10) Uveitis of left eye ?H20.9 - Unspecified iridocyclitis (ICD-10) Urinary incontinence ?R32 - Unspecified urinary incontinence (ICD-10) Tinea versicolor ?B36.0 - Pityriasis versicolor (ICD-10) Myalgia and myositis Morbid obesity ?E66.01 - Morbid (severe) obesity due to excess calories (ICD-10) Migraine headache ?G43.909 - Migraine, unspecified, not intractable, without status migrainosus (ICD-10) Hypertension ?I10 - Essential (primary) hypertension (ICD-10) History of gestational diabetes mellitus (GDM) ?Z86.32 - Personal history of gestational diabetes (ICD-10) Hidradenitis suppurativa ?L73.2 - Hidradenitis suppurativa (ICD-10) External hemorrhoids ?K64.4 - Residual hemorrhoidal skin tags (ICD-10) Encounter for annual physical exam ?Z00.00 - Encounter for general adult medical examination without abnormal findings (ICD-10) Difficulty sleeping ?G47.9 - Sleep disorder, unspecified (ICD-10) Dermatitis ?L30.9 - Dermatitis, unspecified (ICD-10) Depression ?F32.A - Depression, unspecified (ICD-10) Controlled type 2 diabetes mellitus ?E11.9 - Type 2 diabetes mellitus without complications (ICD-10) Amenorrhea ?N91.2 - Amenorrhea, unspecified (ICD-10) Surgical History Status post hemorrhoidectomy (2013) ?Z98.890 - Other specified postprocedural states (ICD-10) ?Z87.19 - Personal history of other diseases of the digestive system (ICD-10) Status post endometrial ablation (09/29/14) ?Z98.890 - Other specified postprocedural states (ICD-10) Status post dilation and curettage ?Z98.890 - Other specified postprocedural states (ICD-10) Family History (Updated 03/19/25 @ 10:55 by Marla Flanagan ~ CTA) Grandmother Diabetes Breast cancer Grandfather Heart disease Stroke Father Heart disease Social History (Updated 03/19/25 @ 11:11 by Marla Flanagan ~ CTA) Narrative: Lifelong nonsmoker. Drinks less than one alcoholic drink per week. 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 current living situation?: I presently have a place to live Problems where you live: no known problems In the past 12 months, utilities in danger of being shut off: no In past 12 months, lack of transportation kept you from medical appts, meetings, work, or getting things needed for daily living: no In the past 12 mos, have been you worried that your food would run out before you had money to buy more?: never true In the past 12 mos, the food you bought just didn't last and you didn't have money to buy more?: never true Highest level of school completed/degree received: some college, no degree Physical activity type: none Smoking Status: Never smoker Do you use any of these nicotine containing products: None Second hand tobacco smoke exposure: Yes (father smoked) How often do you have a drink containing alcohol: 2-4 times a month Alcohol type details: ilia How many standard drinks containing alcohol do you have on a typical day: 1 or 2 How often do you have six or more drinks on one occasion: Never AUDIT-C Alcohol total score: 2 Non-prescribed substance use: denies use Caffeine: Yes (pop) Are you now , , , , never or living with a partner: Social isolation score (0-1 are the most socially isolated patients): 1 How often does anyone, including family, friends and others, physically hurt you: never How often does anyone, including family, friends and others, insult or talk down to you: never How often does anyone, including family, friends and others, threaten you with harm: never How often does anyone, including family, friends and others, scream or curse at you: never Gender Identity: female Are you currently sexually active: Yes Are you using contraception or practicing any form of control: No service: No Exam Narrative: Exam Narrative: Constitutional: Well-developed, well-nourished, no acute distress. HEENT: Normocephalic, atraumatic. Neck: Normal range of motion. Nontender. Supple. Heart: Regular. No murmurs. Normal rate. Intact distal pulses. Lungs: Clear to auscultation. No chest discomfort. No wheezes, rhonchi, or rales. Abdomen: Normal bowel sounds. Nontender. No rebound tenderness. Genitalia: Deferred. Back: No midline tenderness. Normal range of motion. Extremities: Puncture wounds to the right hand with surrounding erythema and swelling and some decreased range of motion. Skin: Intact. No rash. Warm. No erythema or pallor. Neurologic: No altered sensation. No weakness. Alert and oriented. Psychiatric: No suicidality. No anxiety or depression. No insomnia. Nursing notes and vitals signs are reviewed. Const: Vital Signs, click to edit/add: Vital Signs - 24 hr 05/18/25 18:03 Temperature 97.9 F Pulse Rate [Pulse Oximeter] 88 Respiratory Rate 16 Blood Pressure [Ri ght Upper Arm] 135/84 Pulse Oximetry 98 Oxygen Delivery Me thod Room Air Course Vital Signs Vital signs: Initial Vital Signs Temperature 97.9 F 05/18/25 18:03 Temperature Source Temporal Artery Scan 05/18/25 18:03 Pulse Rate 88 05/18/25 18:03 Respiratory Rate 16 05/18/25 18:03 Blood Pressure 135/84 05/18/25 18:03 Blood Pressure Mean 101 05/18/25 18:03 Blood Pressure Position Sitting 05/18/25 18:03 Pulse Oximetry 98 05/18/25 18:03 Oxygen Delivery Method Room Air 05/18/25 18:03 Vital Signs Temperature 97.9 F 05/18/25 18:03 Pulse Rate 88 05/18/25 18:03 Respiratory Rate 16 05/18/25 18:03 Blood Pressure 135/84 05/18/25 18:03 Pulse Oximetry 98 05/18/25 18:03 Oxygen Delivery Method Room Air 05/18/25 18:03 Temperature 97.9 F 05/18/25 18:03 Pulse Rate 88 05/18/25 18:03 Respiratory Rate 16 05/18/25 18:03 Blood Pressure 135/84 05/18/25 18:03 Pulse Oximetry 98 05/18/25 18:03 Oxygen Delivery Method Room Air 05/18/25 18:03 Medications Administered Medications: Discontinued Medications Generic Name Dose Route Start Last Admin Trade Name Freq PRN Reason Stop Dose Admin Rabies Immune Globulin 2,385 unit 05/18/25 18:26 05/18/25 19:33 Rabies Immune Globulin 150 Unit/Ml Inj 20 unit/kg (2385 unit) 05/18/25 18:27 2,385 unit INFILTRATI Administration ONCE ONE Rabies Vaccine 2.5 unit 05/18/25 18:26 05/18/25 19:35 Rabies Vaccine (Rabavert) 2.5 Unit IM 05/18/25 18:27 2.5 unit .ONCE ONE Administration MDM - Animal Bite MDM Narrative Medical decision making narrative: This patient has a cat bite to her hand that needs treatment with Augmentin. The cat may be a carrier of rabies of the rabies series was began today and arrangements are made for return visits here on day 3, 7, and 14. Discharge Plan Discharge Clinical Impression: Cat bite Patient Disposition: Home, Self-Care Condition: Stable Additional Instructions: take Augmentin as directed. Return on May 21, , and to complete the series of rabies injections. Follow up with MD otherwise as needed. Prescriptions: New amoxicillin-pot clavulanate 875-125 mg tablet 1 tab PO BID Qty: 14 0RF No Action folic acid 1 mg tablet 1 mg PO DAILY methotrexate sodium 2.5 mg tablet 12.5 mg PO .1 x week clotrimazole 1 % cream 1 applic topical BID 14 Days Qty: 45 1RF lisdexamfetamine 30 mg capsule 30 mg PO DAILY (DME) lancets [Accu-Chek Softclix Lancets] Misc See Rx Instructions .Route Qty: 200 10RF Rx Instructions: Test 4 times daily. (DME) Accu-Chek Guide test strips Strip See Rx Instructions .ROUTE .MEDSUPPLY Qty: 100 10RF Rx Instructions: Test 4 times per day. venlafaxine 150 mg capsule,extended release 24hr 150 mg PO DAILY buspirone 15 mg tablet 15 mg PO BID Xeljanz XR 11 mg tablet extended release 24 hr 11 mg PO DAILY diclofenac sodium 1 % gel 2 g topical QID PRN (Reason: joint pain) hydrocortisone 2.5 % cream 1 applic topical BID PRN hydroxyzine HCl 25 mg tablet 12.5 - 25 mg PO Q8H PRN (Reason: insomnia) Ozempic 0.25 mg or 0.5 mg (2 mg/3 mL) pen injector 0.5 mg subcut QWEEK Qty: 3 1RF losartan 100 mg tablet 100 mg PO DAILY Qty: 90 4RF rosuvastatin 10 mg tablet 10 mg PO DAILY Qty: 90 4RF cholecalciferol (vitamin D3) 50 mcg (2,000 unit) capsule 50 mcg PO QDAY Qty: 90 0RF Follow Up/Referrals: Luis Ambriz MD [Primary Care Provider, Family Practice] Stand Alone Forms: [facility] Info Instructions
[2025-05-18] MEDS: RABIES IMMUNE GLOBULIN 150 UNIT/ML INJ 2385 UNIT INFILTRATI (19:33)
[2025-05-18] MEDS: RABIES VACCINE (RABAVERT) 2.5 UNIT IM (19:35)
[2025-05-18 20:43] VITALS: BP 135/84; PULSE 88; RESP 16; TEMP 36.6
== END 2025-05-18 20:43 | disposition home or self-care (01) ==
PROVIDERS: Emergency Provider Emergency Medicine Emergency Medical Services; PCP Family Medicine
DX: S61.031A Puncture wound without foreign body of right thumb without damage to nail, initial encounter (principal); Z20.3 Contact with and (suspected) exposure to rabies; W55.01XA Bitten by cat, initial encounter
CPT/HCPCS: 90377; 90471; 99283; 99284; 90675

== ENCOUNTER 2025-05-21 12:43 | Inpatient (IN) | payer OTHER, SELFPAY ==
--- OUTSIDE RECORDS SUMMARY | 2025-05-21 12:46 | XMS_ITS | Encounter Summary ---
Author Organization [place] Address [address] [place] [address] Care Team Providers Care Assistant Professor In Family Studies Name Role Phone Zuleyma Christalromancamila Naranjo [facility], [facility] Unavailable [phone] Shaan Ramirez MD Unavailable [phone] Luis Ambriz MD Primary Care Provider [phone] MD Unavailable [phone] Nini Patten MD Unavailable [phone] Nini Patten MD Unavailable [phone] Margaret Reyes [facility] Unavailable Unavailable Adria Cisneros MD Unavailable [phone] Adria Cisneros MD Unavailable [phone] Adria Cisneros MD Unavailable [phone] Margaret Reyes [facility] Unavailable Unavailable Adria Cisneros MD Unavailable [phone] Encounter Details Date Type Department Care Team (Late st Contact Info) Description 12/12/2021 [facility] Medical [facility] Eye [place] [id number] [facility] [address] [place] [address] Shaan Ramirez MD [address] [place] [address] [phone] Social History Tobacco Use Types Packs/Day Years [...] 05/25/2025 11:30 AM CDT Lab [facility] [address] [place] [phone] 07/29/2025 8:40 AM SEAM STEAMER Office Visit [facility] [address] [address] Kapil Kay MD [address] [place] [address] 08/25/2025 1:00 PM SEAM STEAMER Lab [facility] [address] [place] [phone] 12/08/2025 1:00 PM CDT Virtual Visit [facility] [id number] [place] [address] [place] [phone] Adria Cisneros MD [address] [place] [address] [phone] documented as of this encounter Visit Diagnoses Not on filedocumented in this encounter Additional Health Concerns Assessment Noted Time PHQ-9 Depression Total Score: 10 022 12:04 PM CDT documented as of this encounter Care Teams Assistant Professor In Family Studies Relationship Specialty Start Date End Date Luis Ambriz MD [address] [place] [address] PCP - General Family Medicine 02/16/22 Bola Amor, DICTAPHONE MECHANIC, [facility] [address] [place] [address] [address] [place] [address] Assigned Behavioral Health Provider 12/04/21 06/27/24 Shaan Ramirez MD [address] [place] [address] Assigned Surgical Provider 12/04/[address] MD [address] [place] [address] Assigned Rheumatology Provider 02/25/22 02/25/24 Nini Patten MD [address] [place] [address] Endocrinology, Diabetes, and Metabolism 08/29/22 Nini Patten MD [address] [place] [address] Assigned Endocrinology Provider 01/20/23 11/25/24 Margaret Reyes, [facility] 08/10/23 Adria Cisneros MD [address] [place] [address] [phone] Rheumatology 11/09/23 Adria Cisneros MD [address] [place] [address] 360675 Rheumatology 11/09/23 Adria Cisneros MD [address] [place] [address] Assigned Rheumatology Provider 02/26/24 Margaret Reyes [facility] Assigned MTM Pharmacist 06/28/24 Adria Cisneros MD [address] [place] [address] Rheumatology 08/01/24 documented as of this encounter
--- OUTSIDE RECORDS SUMMARY | 2025-05-21 12:46 | XMS_ITS | Encounter Summary ---
Author Organization [place] Address [address] [place] [address] Care Team Providers Care Home Visit Field Care Manager Name Role Phone ZuleymaChristalromancamila Naranjo [facility], [facility] Unavailable [phone] Shaan Ramirez MD Unavailable [phone] Luis Ambriz MD Primary Care Provider [phone] MD Unavailable [phone] Nini Patten MD Unavailable [phone] Nini Patten MD Unavailable [phone] Margaret Reyes [facility] Unavailable Unavailable Adria Cisneros MD Unavailable [phone] Adria Cisneros MD Unavailable [phone] Adria Cisneros MD Unavailable [phone] Margaret Reyes [facility] Unavailable Unavailable Adria Cisneros MD Unavailable [phone] Encounter Details Date Type Department Care Team (Late st Contact Info) Description 09/26/2022 [facility] Medical Advice [facility] [address] [address] MD [facility], Rheumatology [address] [place] [phone] Social History Tobacco Use Types Packs/Day [...] AM CDT Lab [facility] [address] [place] [address] 07/29/2025 8:40 AM FEED MIXER Office Visit [facility] [address] [facility] 9th [facility] [address] [place] [address] Kapil Kay MD [address] [place] [address] 08/25/2025 1:00 PM FEED MIXER Lab [facility] [address] [place] [address] 12/08/2025 1:00 PM CDT Virtual Visit [facility] [address] [place] [phone] Adria Cisneros MD [address] [place] [address] documented as of this encounter Visit Diagnoses Not on filedocumented in this encounter Additional Health Concerns Assessment Noted Time PHQ-9 Depression Total Score: 10 023 9:59 AM FEED MIXER documented as of this encounter Care Teams Home Visit Field Care Manager Relationship Specialty Start Date End Date Luis Ambriz MD [address] [place] [address] PCP - General Family Medicine 02/16/22 Bola Amor, INTERIOR WALL ASSEMBLER, [facility] [address] [address] Assigned Behavioral Health Provider 12/04/21 06/27/24 Shaan Ramirez MD [address] [place] [address] Assigned Surgical Provider 12/04/[address] MD [address] [place] [address] Assigned Rheumatology Provider 02/25/22 02/25/24 Nini Patten MD [address] [place] [address] Endocrinology, Diabetes, and Metabolism 08/29/22 Nini Patten MD [address] [place] [address] Assigned Endocrinology Provider 01/20/23 11/25/24 Margaret Reyes [facility] 08/10/23 Adria Cisneros MD [address] [place] [address] Rheumatology 11/09/23 Adria Cisneros MD [address] [place] [address] Rheumatology 11/09/23 Adria Cisneros MD [address] [place] [address] Assigned Rheumatology Provider 02/26/24 Margaret Reyes [facility] Assigned MTM Pharmacist 06/28/24 Adria Cisneros MD [address] [place] [address] [phone] Rheumatology 08/01/24 documented as of this encounter
--- OUTSIDE RECORDS SUMMARY | 2025-05-21 12:46 | XMS_ITS | Encounter Summary ---
Author Organization [place] Address [address] [place] [address] Care Team Providers Care Watch Dial Maker Name Role Phone Shaan Ramirez MD Unavailable [phone] Luis Ambriz MD Primary Care Provider [phone] Nini Patten MD Unavailable [phone] Margaret Reyes [facility] Unavailable Unavailable Adria Cisneros MD Unavailable [phone] Adria Cisneros MD Unavailable [phone] Adria Cisneros MD Unavailable [phone] Margaret Reyes [facility] Unavailable Unavailable Adria Cisneros MD Unavailable [phone] Encounter Details Date Type Department Care Team (Late st Contact Info) Description 02/13/2025 Results Follow-Up [facility] [address] [phone] Shaan Ramirez MD [address] [place] [address] [phone] Subj: Message about your results Social History [...] Info) Description 05/25/2025 11:30 AM CDT Lab [facility] [address] [place] [address] 07/29/2025 8:40 AM REINFORCED STEEL PLACING SUPERVISOR Office Visit [facility] [address] [facility] [address] [address] Kapil Kay MD [address] [place] [address] 08/25/2025 1:00 PM REINFORCED STEEL PLACING SUPERVISOR Lab [facility] [address] [place] [address] 12/08/2025 1:00 PM CDT Virtual Visit [facility] [address] [place] [address] [place] [address] Adria Cisneros MD [address] [place] [address] documented as of this encounter Visit Diagnoses Not on filedocumented in this encounter Additional Health Concerns Assessment Noted Time PHQ-9 Depression Total Score: 5 08/01/20 24 7:42 AM REINFORCED STEEL PLACING 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 Care Teams Watch Dial Maker Relationship Specialty Start Date End Date Luis Ambriz MD [address] [place] [address] PCP - General Family Medicine 02/16/22 Shaan Ramirez MD [address] [place] [address] Assigned Surgical Provider 12/04/21 Nini Patten MD [address] [place] [address] Endocrinology, Diabetes, and Metabolism 08/29/22 Margaret Reyes [facility] Pharmacist 08/10/23 Adria Cisneros MD [address] [place] [address] Rheumatology 11/09/23 Adria Cisneros MD [address] [place] [address] Rheumatology 11/09/23 Adria Cisneros MD [address] [place] [address] [phone] Assigned Rheumatology Provider 02/26/24 Margaret Reyes [facility] Assigned MTM Pharmacist 06/28/24 Adria Cisneros MD [address] [place] [address] Rheumatology 08/01/24 documented as of this encounter
--- OUTSIDE RECORDS SUMMARY | 2025-05-21 12:46 | XMS_ITS | Encounter Summary ---
Author Organization [place] Address [address] [place] [address] Care Team Providers Care Hardness Tester Name Role Phone Eve Amorcamila Naranjo [facility], [facility] Unavailable [phone] Shaan Ramirez MD Unavailable [phone] Luis Ambriz MD Primary Care Provider [phone] MD Unavailable [phone] Nini Patten MD Unavailable [phone] Nini Patten MD Unavailable [phone] Margaret Reyes [facility] Unavailable Unavailable Adria Cisneros MD Unavailable [phone] Adria Cisneros MD Unavailable [phone] Adria Cisneros MD Unavailable +[phone] Margaret Reyes [facility] Unavailable Unavailable Adria Cisneros MD Unavailable +[phone] Encounter Details Date Type Department Care Team (Late st Contact Info) Description 11/29/2021 [facility] Eye [place] 815316 [facility] 9 Pr Clin 9[address] [place] [address] Shaan Ramirez MD [address] [place] [address] 150275 Social History Tobacco Use Types Packs/Day Years [...] Info) Description 05/25/2025 11:30 AM CDT Lab [facility] Laboratory [address] [place] [address] 07/29/2025 8:40 AM AUDIT INTERN Office Visit [facility] Eye [facility] - [address] 9[facility] Clin [address] [place] [address] Kapil Kay MD [address] [place] [address] 08/25/2025 1:00 PM AUDIT INTERN Lab [facility] Laboratory [address] [place] [address] 12/08/2025 1:00 PM CDT Virtual Visit [facility] [address] [place] [phone] Adria Cisneros MD [address] [place] [address] documented as of this encounter Visit Diagnoses Not on filedocumented in this encounter Additional Health Concerns Assessment Noted Time PHQ-9 Depression Total Score: 6 11/25/19 7:04 AM CDT documented as of this encounter Care Teams Hardness Tester Relationship Specialty Start Date End Date Luis Ambriz MD [address] [place] [address] PCP - General Family Medicine 02/16/22 Bola Amor, COPPING MACHINE OPERATOR, [facility] [address] [facility] [address] [facility] [address] [place] [address] Assigned Behavioral Health Provider 12/04/21 06/27/24 Shaan Ramirez MD [address] [place] [address] 563465 Assigned Surgical Provider 12/04/[address] MD [address] [place] [address] 121985 Assigned Rheumatology Provider 02/25/22 02/25/24 Nini Patten MD [address] [place] [address] Endocrinology, Diabetes, and Metabolism 08/29/22 Nini Patten MD [address] [place] [address] Assigned Endocrinology Provider 01/20/23 11/25/24 Margaret Reyes, [facility] 08/10/23 Adria Cisneros MD [address] [place] [address] 233585 Rheumatology 11/09/23 Adria Cisneros MD [address] [place] [address] 192565 Rheumatology 11/09/23 Adria Cisneros MD [address] [place] [address] 390715 Assigned Rheumatology Provider 02/26/24 Margaret Reyes [facility] Assigned MTM Pharmacist 06/28/24 Adria Cisneros MD [address] [place] [address] Rheumatology 08/01/24 documented as of this encounter
--- OUTSIDE RECORDS SUMMARY | 2025-05-21 12:46 | XMS_ITS | Encounter Summary ---
Author Organization [place] Address [address] [place] [address] Care Team Providers Care History Instructor Name Role Phone Bola Amor [facility], [facility] Unavailable [phone] Shaan Ramirez MD Unavailable [phone] Luis Ambriz MD Primary Care Provider [phone] MD Unavailable [phone] Nini Patten MD Unavailable [phone] Nini Patten MD Unavailable [phone] Margaret Reyes [facility] Unavailable Unavailable Adria Cisneros MD Unavailable [phone] Adria Cisneros MD Unavailable [phone] Adria Cisneros MD Unavailable [phone] Margaret Reyes [facility] Unavailable Unavailable Adria Cisneros MD Unavailable [phone] Encounter Details Date Type Department Care Team (Late st Contact Info) Description 12/11/2023 [facility] [address] [address] Margaret Reyes, [facility] Social History Tobacco Use Types Packs/Day [...] Description 05/25/2025 11:[address] [facility] Laboratory [address] [place] [address] 07/29/2025 8:40 AM DOSIER OPERATOR [facility] [address] [facility] 9[facility] Clin 9A [place] [address] Kapil Kay MD [address] [place] [address] 08/25/2025 1:00 PM DOS[address] OPERATOR Lab [facility] Laboratory [address] [place] [address] 12/08/2025 1:00 PM CDT Virtual Visit [facility] [address] [place] [address] [place] [phone] Adria Cisneros MD [address] [address] documented as of this encounter Visit Diagnoses Not on filedocumented in this encounter Additional Health Concerns Assessment Noted Time PHQ-9 Depression Total Score: 4 12/25/19 23 2:25 PM CDT documented as of this encounter Care Teams History Instructor Relationship Specialty Start Date End Date Luis Ambriz MD [address] [place] [address] PCP - General Family Medicine 02/16/22 Bola Amor, SENIOR GAMEMASTER, LADC [address] [facility] 180 [place] [address] Assigned Behavioral Health Provider 12/04/21 06/27/24 Shaan Ramirez MD 6 [place] [address] Assigned Surgical Provider 12/04/[address] MD 6 [place] [address] Assigned Rheumatology Provider 02/25/22 02/25/24 Nini Patten MD [address] [place] [address] Endocrinology, Diabetes, and Metabolism 08/29/22 Nini Pattne MD [address] [place] [address] Assigned Endocrinology Provider 01/20/23 11/25/24 [facility] 08/10/23 Adria Cisneros MD [address] [place] [address] Rheumatology 11/09/23 Adria Cisneros MD [address] [place] [address] 79019 Rheumatology 11/09/23 Adria Cisneros MD [address] [place] [address]708 Assigned Rheumatology Provider 02/26/24 Margaret Reyes [facility] Assigned MTM Pharmacist 06/28/24 Adria Cisneros MD [address] [place] [address] Rheumatology 08/01/24 documented as of this encounter
--- OUTSIDE RECORDS SUMMARY | 2025-05-21 12:46 | XMS_ITS | Encounter Summary ---
Author Organization [place] Address [address] [place] [address]15 Care Team Providers Care Piece Work Checker Name Role Phone ZuleymaChristalromancamila Naranjo [facility], [facility] Unavailable +[phone] Shaan Ramirez MD Unavailable [phone] Luis Ambriz MD Primary Care Provider [phone] MD Unavailable [phone] Nini Patten MD Unavailable [phone] Nini Patten MD Unavailable [phone] Margaret Reyes [facility] Unavailable Unavailable Adria Cisneros MD Unavailable [phone] Adria Cisneros MD Unavailable [phone] Adria Cisneros MD Unavailable [phone] Margaret Reyes [facility] Unavailable Unavailable Adria Cisneros MD Unavailable [phone] Reason for Visit * Reason Onset Date Comments Vision Changes Ou 12/21/2021 Encounter Details Date Type Department Care Team (Late st Contact Info) Description 12/21/2021 [facility] Eye [place] [address]86006 [facility] Clin 9A [place] [address] Shaan Ramirez MD [address] [place] [address] Vision Changes Ou Social History Tobacco [...] Info) Description 05/25/2025 11:30 AM CDT Lab [facility] Laboratory [address] [place] [address] 07/29/2025 8:40 AM IMMIGRATION LAW SPECIALIST Office Visit [facility] Eye [facility] - [address] 9[facility] Clin 9A [place] [address] Kapil Kay MD [facility] [place] [address] 08/25/2025 1:00 PM IMMIGRATION LAW SPECIALIST Lab [facility] [address] [place] [address] 12/08/2025 1:00 PM CDT Virtual Visit [address] [address] Adria Cisneros MD 515 [facility] 88 [place], [place] 956015 documented as of this encounter Visit Diagnoses Diagnosis Intermediate uveitis of both eyes documented in this encounter Additional Health Concerns Assessment Noted Time PHQ-9 Depression Total Score: 10 0504/2 022 12:04 PM CDT documented as of this encounter Care Teams Piece Work Checker Relationship Specialty Start Date End Date Luis Ambriz MD [address] [place] [address] 20271 PCP - General Family Medicine 02/16/22 Bola Amor, [facility], [facility] [address] [place] [address] 32841 Assigned Behavioral Health Provider 12/04/21 06/27/24 Shaan Ramirez MD [address] [place] [address] 16577 Assigned Surgical Provider 12/04/[address] MD [address] [place] [address] 54759 Assigned Rheumatology Provider 02/25/22 02/25/24 Nini Patten MD [address] [place] [address]38 Endocrinology, Diabetes, and Metabolism 08/29/22 Nini Patten MD [address] [place] [address] 31635 Assigned Endocrinology Provider 01/20/23 11/25/24 Margaret Reyes, [facility] Pharmacist 08/10/23 Adria Cisneros MD [address] [place] [address]72 Rheumatology 11/09/23 Adria Cisneros MD [address] [place] [address] 21393 Rheumatology 11/09/23 Adria Cisneros MD [address] [place] [address] 25274 Assigned Rheumatology Provider 02/26/24 Margaret Reyes [facility] Assigned MTM Pharmacist 06/28/24 Adria Cisneros MD [address] [place] [address] 69139 Rheumatology 08/01/24 documented as of this encounter
--- OUTSIDE RECORDS SUMMARY | 2025-05-21 12:46 | XMS_ITS | Encounter Summary ---
Author Organization [place] Address [address] [place] [address]97 Care Team Providers Care Logistics Director Name Role Phone ZuleymaChristalromancamila Naranjo [facility], [facility] Unavailable [phone] Shaan Ramirez MD Unavailable [phone] Luis Ambriz MD Primary Care Provider [phone] MD Unavailable [phone] Nini Patten MD Unavailable [phone] Nini Patten MD Unavailable [phone] Margaret Reyes [facility] Unavailable Unavailable Ardia Cisneros MD Unavailable [phone] Adria Cisneros MD Unavailable [phone] Adria Cisneros MD Unavailable [phone] Margaret Reyes [facility] Unavailable Unavailable Adria Cisneros MD Unavailable [phone] Encounter Details Date Type Department Care Team (Late st Contact Info) Description 02/24/2022 [facility] Advice [facility] Rheumatology Clinic [address] [address] MD Health [facility], Rheumatology [address] [place] [address] Social History Tobacco Use Types Packs/Day [...] Info) Description 05/25/2025 11:30 AM CDT Lab [facility] Laboratory [address] [place] [address] 07/29/2025 8:40 AM USABILITY ARCHITECT Office Visit [facility] Eye [facility] - [address] 9[facility] Clin 9A [place] [address] Kapil Kay MD [address]50 [place] [address] 08/25/2025 1:00 PM USABILITY ARCHITECT Lab [address] [address] 12/08/2025 1:00 PM CDT Virtual Visit [facility] [address] [place] [phone] Adria Cisneros MD [address] [place] [address] documented as of this encounter Visit Diagnoses Not on filedocumented in this encounter Additional Health Concerns Assessment Noted Time PHQ-9 Depression Total Score: 6 02/03/20 22 9:26 AM CDT documented as of this encounter Care Teams Logistics Director Relationship Specialty Start Date End Date Luis Ambriz MD [address] [place] [address] PCP - General Family Medicine 02/16/22 Bola Amor, [facility], [facility] [address] [place] [address] 31209 Assigned Behavioral Health Provider 12/04/21 06/27/24 Shaan Ramirez MD [address] [place] [address]3517 Assigned Surgical Provider 12/04/[address] MD [address] [place] [address]1454 Assigned Rheumatology Provider 02/25/22 02/25/24 Nini Patten MD [address] [place] [address]29 Endocrinology, Diabetes, and Metabolism 08/29/22 Nini Patten MD [address] [place] [address] 09000 Assigned Endocrinology Provider 01/20/23 11/25/24 Margaret Reyes, [facility] 08/10/23 Adria Cisneros MD [address] [place] [address] 29191 Rheumatology 11/09/23 Adria Cisneros MD [address] [place] [address] 06386 Rheumatology 11/09/23 Adria Cisneros MD [address] [place] [address] 37914 Assigned Rheumatology Provider 02/26/24 Margaret Reyes [facility] Assigned MTM Pharmacist 06/28/24 Adria Cisneros MD [address] [place] [address]46 Rheumatology 08/01/24 documented as of this encounter
--- OUTSIDE RECORDS SUMMARY | 2025-05-21 12:46 | XMS_ITS | Encounter Summary ---
Author Organization [place] Address [address] [place] [address] Care Team Providers Care Clothespin Machine Operator Name Role Phone ZuleymaBola [facility], [facility] Unavailable [phone] Shaan Ramirez MD Unavailable [phone] Luis Ambriz MD Primary Care Provider [phone] MD Unavailable [phone] Nini Patten MD Unavailable [phone] Nini Patten MD Unavailable [phone] Margaret Reyes [facility] Unavailable Unavailable Adria Cisneros MD Unavailable [phone] Adria Cisneros MD Unavailable [phone] Adria Cisneros MD Unavailable [phone] Margaret Reyes [facility] Unavailable Unavailable Adria Cisneros MD Unavailable [phone] Encounter Details Date Type Department Care Team (Late st Contact Info) Description 07/06/2023 [facility] [address] 4th [place] [address] Baljinder Friend Social History Tobacco [...] Info) Description 05/25/2025 11:30 AM CDT Lab [facility] Laboratory [address] [place] [address] 07/29/2025 8:40 AM PRODUCTION LINE SOLDERER Office Visit [facility] Eye [facility] Emergency Department [address] [facility] 9[address] [place] [address] Kapil Kay MD 2450 [place] [address] 08/25/2025 1:00 PM PRODUCTION LINE SOLDERER Lab [facility] Laboratory [address] [place] [address] 12/08/2025 1:00 PM CDT Virtual Visit [facility] [address] [facility] [place] [address] Adria Cisneros MD 515 [facility] 88 [place], [place] 888125 documented as of this encounter Visit Diagnoses Not on filedocumented in this encounter Additional Health Concerns Assessment Noted Time PHQ-9 Depression Total Score: 4 12/25/19 23 2:25 PM CDT documented as of this encounter Care Teams Clothespin Machine Operator Relationship Specialty Start Date End Date Luis Ambriz MD [address] [place], [place] 49697455 PCP - General Family Medicine 02/16/22 Bola Amor, RECORDER HELPER GRAVITY PROSPECTING, LADC [address] [facility] 180 [place], [place] [address]15 Assigned Behavioral Health Provider 12/04/21 06/27/24 Shaan Ramirez MD [address] [place] [address]30 Assigned Surgical Provider 12/04/[address] MD [address] [place] [address] 79012 Assigned Rheumatology Provider 02/25/22 02/25/24 Nini Patten MD [address] [place] [address]61 Endocrinology, Diabetes, and Metabolism 08/29/22 Nini Patten MD [address] [place] [address] Assigned Endocrinology Provider 01/20/23 11/25/24 Margaret Reyes [facility] Pharmacist 08/10/23 Adria Cisneros MD [address] [place] [address] Rheumatology 11/09/23 Adria Cisneros MD [address] [place] [address] 25886 Rheumatology 11/09/23 Adria Cisneros MD [address] [place] [address]77 Assigned Rheumatology Provider 02/26/24 Margaret Reyes [facility] Assigned MTM Pharmacist 06/28/24 Adria Cisneros MD [address] [place] [address]180 Rheumatology 08/01/24 documented as of this encounter
--- OUTSIDE RECORDS SUMMARY | 2025-05-21 12:46 | XMS_ITS | Encounter Summary ---
Author Organization [place] Address [address] [place] [address]26 Care Team Providers Care Signal Repairer Name Role Phone ZuleymaBola [facility] Unavailable +[phone] Shaan Ramirez MD Unavailable [phone] Luis Ambriz MD Primary Care Provider [phone] MD Unavailable [phone] Nini Patten MD Unavailable [phone] Nini Patten MD Unavailable [phone] Margaret Reyes [facility] Unavailable Unavailable Adria Cisneros MD Unavailable [phone] Adria Cisneros MD Unavailable [phone] Adria Cisneros MD Unavailable [phone] Margaret Reyes [facility] Unavailable Unavailable Adria Cisneros MD Unavailable [phone] Encounter Details Date Type Department Care Team (Late st Contact Info) Description 01/15/2023 [facility]ology Clinic [address] [address] Nini Patten MD [address] [place] [address] Social History Tobacco Use Types Packs/Day [...] AM CDT Lab [facility] Laboratory [address] [place] [address] 07/29/2025 8:40 AM CERTIFIED CODING SPECIALIST Office Visit [facility] Eye [facility] [place] 319356 [facility] 9[facility] Clin 9A [place] [address] Kapil Kay MD [facility] [place] [address] 08/25/2025 1:00 PM CERTIFIED CODING SPECIALIST Lab [address] [address] 12/08/2025 1:00 PM CDT Virtual Visit [facility] [address] [place] [address] Adria Cisneros MD [address] [place] [address] documented as of this encounter Visit Diagnoses Not on filedocumented in this encounter Additional Health Concerns Assessment Noted Time PHQ-9 Depression Total Score: 4 12/25/19 23 2:25 PM CDT documented as of this encounter Care Teams Signal Repairer Relationship Specialty Start Date End Date Luis Ambriz MD [address] [place] [address] PCP - General Family Medicine 02/16/22 Bola Amor, [facility] S [facility] 180 [place] [address] Assigned Behavioral Health Provider 12/04/21 06/27/24 Shaan Ramirez MD [address] [place] [address] 8[address]60 Assigned Surgical Provider 12/04/[address] MD [address] [place] [address] 28948 Assigned Rheumatology Provider 02/25/22 02/25/24 Nini Patten MD [address] [place] [address]166 Endocrinology, Diabetes, and Metabolism 08/29/22 Nini Patten MD [address] [place] [address]1772 Assigned Endocrinology Provider 01/20/23 11/25/24 [facility] 08/10/23 Adria Cisneros MD [address] [place] [address]014 Rheumatology 11/09/23 Adria Cisneros MD [address] [place] [address]98 Rheumatology 11/09/23 Adria Cisneros MD [address] [place] [address] 60983 Assigned Rheumatology Provider 02/26/24 Margaret Reyes [facility] Assigned MTM Pharmacist 06/28/24 Adria Cisneros MD [address] [place] [address]23 Rheumatology 08/01/24 documented as of this encounter
--- OUTSIDE RECORDS SUMMARY | 2025-05-21 12:46 | XMS_ITS | Encounter Summary ---
Author Organization Issue Address [address] [place] [address] Care Team Providers Care Boarding House Manager Name Role Phone ZuleymaBola [facility], [facility] Unavailable +[phone] Shaan Ramirez MD Unavailable [phone] Luis Ambriz MD Primary Care Provider [phone] MD Unavailable +[phone] Nini Patten MD Unavailable +[phone] Nini Patten MD Unavailable +[phone] Margaret Reyes [facility] Unavailable Unavailable Adria Cisneros MD Unavailable [phone] Adria Cisneros MD Unavailable [phone] Adria Cisneros MD Unavailable [phone] Margaret Reyes [facility] Unavailable Unavailable Adria Cisneros MD Unavailable [phone] Encounter Details Date Type Department Care Team (Late st Contact Info) Description 04/10/2023 [facility] Endocrinology Clinic [address] [place] [address] Nini Patten MD [address] [place] [address] Social History Tobacco Use Types Packs/Day [...] Info) Description 05/25/2025 11:30 AM CDT Lab [facility] [address] [place] [address] 07/29/2025 8:40 AM PHYS ASST Office Visit [facility] Eye [facility] [place] 670796 [facility] [address] [phone] Kapil Kay MD [facility] [place] [address] 08/25/2025 1:00 PM PHYS ASST Lab [address] [address] 12/08/2025 1:00 PM CDT Virtual Visit [facility] [address] [place] [address] Adria Cisneros MD [address] [place] [address] documented as of this encounter Visit Diagnoses Not on filedocumented in this encounter Additional Health Concerns Assessment Noted Time PHQ-9 Depression Total Score: 4 12/25/19 23 2:25 PM CDT documented as of this encounter Care Teams Boarding House Manager Relationship Specialty Start Date End Date Luis Ambriz MD [address] [place] [address] PCP - General Family Medicine 02/16/22 Bola Amor, [facility], [facility] [address] [facility] 180 [place] [address] Assigned Behavioral Health Provider 12/04/21 06/27/24 Shaan Ramirez MD [address] [place] [address] Assigned Surgical Provider 12/04/[address] MD [address] [place] [address] 31681 Assigned Rheumatology Provider 02/25/22 02/25/24 Nini Patten MD [address] [place] [address] Endocrinology, Diabetes, and Metabolism 08/29/22 Nini Patten MD [address] [place] [address] Assigned Endocrinology Provider 01/20/23 11/25/24 [facility] 08/10/23 Adria Cisneros MD [address] [place] [address] Rheumatology 11/09/23 Adria Cisneros MD [address] [place] [address] 12572 Rheumatology 11/09/23 Adria Cisneros MD [address] [place] [address] Assigned Rheumatology Provider 02/26/24 Margaret Reyes [facility] Assigned MTM Pharmacist 06/28/24 Adria Cisneros MD [address] [place] [address] Rheumatology 08/01/24 documented as of this encounter
--- OUTSIDE RECORDS SUMMARY | 2025-05-21 12:46 | XMS_ITS | Encounter Summary ---
Author Organization [place] Address [address] [place] [address] Care Team Providers Care Ultrasonic Hand Solderer Name Role Phone ZuleymaBola [facility], [facility] Unavailable +[phone] Shaan Ramirez MD Unavailable [phone] Luis Ambriz MD Primary Care Provider [phone] MD Unavailable +[phone] Nini Patten MD Unavailable [phone] Nini Patten MD Unavailable +[phone] Margaret Reyes [facility] Unavailable Unavailable Adria Cisneros MD Unavailable [phone] Adria Cisneros MD Unavailable [phone] Adria Cisneros MD Unavailable [phone] Margaret Reyes [facility] Unavailable Unavailable Adria Cisneros MD Unavailable [phone] Encounter Details Date Type Department Care Team (Late st Contact Info) Description 12/22/[address] [address] Baljinder Friend Social History Tobacco [...] Info) Description 05/25/2025 11:30 AM CDT Lab [facility] [address] [place] [address] 07/29/2025 8:40 AM MEDICAL STAFF COORDINATOR Office Visit [facility] 516 [facility] 9[facility] 9A [place] [address] Kapil Kay MD 2450 [place] [address] 08/25/2025 1:00 PM MEDICAL STAFF COORDINATOR Lab [facility] [address] [place] [address] 12/08/2025 1:00 PM CDT Virtual Visit [facility] [address] [place] [address] [place] [phone] Adria Cisneros MD [address] [address] documented as of this encounter Visit Diagnoses Not on filedocumented in this encounter Additional Health Concerns Assessment Noted Time PHQ-9 Depression Total Score: 10 022 12:04 PM CDT documented as of this encounter Care Teams Ultrasonic Hand Solderer Relationship Specialty Start Date End Date Luis Ambriz MD 6 [place] [address] PCP - General Family Medicine 02/16/22 Bola Amor, CHECKERING MACHINE ADJUSTER, [facility] S [facility] [address] [facility] 180 [place] [address] Assigned Behavioral Health Provider 12/04/21 06/27/24 Shaan Ramirez MD 6 [place] [address] Assigned Surgical Provider 12/04/[address] MD [address] [place] [address] Assigned Rheumatology Provider 02/25/22 02/25/24 Nini Patten MD [address] [place] [address] Endocrinology, Diabetes, and Metabolism 08/29/22 Nini Patten MD [address] [place] [address] Assigned Endocrinology Provider 01/20/23 11/25/24 [facility] 08/10/23 Adria Cisneros MD [address] [place] [address] Rheumatology 11/09/23 Adria Cisneros MD [address] [place] [address] 26[address] Rheumatology 11/09/23 Adria Cisneros MD [address] [place] [address] 52699 Assigned Rheumatology Provider 02/26/24 Margaret Reyes [facility] Assigned MTM Pharmacist 06/28/24 Adria Cisneros MD [address] [place] [address] 16277 Rheumatology 08/01/24 documented as of this encounter
--- OUTSIDE RECORDS SUMMARY | 2025-05-21 12:46 | XMS_ITS | Encounter Summary ---
Author Organization [place] Address [address] [place] [address] Care Team Providers Care Engineer Automated Equipment Name Role Phone ZuleymaBola [facility], [facility] Unavailable +[phone] Shaan Ramirez MD Unavailable [phone] Luis Ambriz MD Primary Care Provider [phone] MD Unavailable [phone] Nini Patten MD Unavailable [phone] Nini Patten MD Unavailable [phone] Margaret Reyes [facility] Unavailable Unavailable Adria Cisneros MD Unavailable [phone] Adria Cisneros MD Unavailable [phone] Adria Cisneros MD Unavailable [phone] Margaret Reyes [facility] Unavailable Unavailable Adria Cisneros MD Unavailable [phone] Encounter Details Date Type Department Care Team (Late st Contact Info) Description 02/02/[address] [address] Baljinder Friend Social History [...] Info) Description 05/25/2025 11:30 AM CDT Lab [facility] Laboratory [address] [place] [address] 07/29/2025 8:40 AM HOOKER INSPECTOR Office Visit [facility] Eye [facility] 516 [facility] 9th Ri Clin 9A [place] [address] Kapil Kay MD 2450 [place], [place] [address] 08/25/2025 1:00 PM HOOKER INSPECTOR Lab [facility] [address] [place] [address] 12/08/2025 1:00 PM CDT Virtual Visit [facility] [address] [place] [phone] Adria Cisneros MD 515 [facility] 88 [place] [address] documented as of this encounter Visit Diagnoses Not on filedocumented in this encounter Additional Health Concerns Assessment Noted Time PHQ-9 Depression Total Score: 6 02/03/20 22 9:26 AM CDT documented as of this encounter Care Teams Engineer Automated Equipment Relationship Specialty Start Date End Date Luis Ambriz MD 516 [place] [address] PCP - General Family Medicine 02/16/22 Bola Amor, PROCESS LEAD, [facility] [address] [facility] 180 [place] [address] Assigned Behavioral Health Provider 12/04/21 06/27/24 Shaan Ramirez MD 6 [place] [address] Assigned Surgical Provider 12/04/[address] MD 6 [place] [address] Assigned Rheumatology Provider 02/25/22 02/25/24 Nini Patten MD 909 [place] [address] Endocrinology, Diabetes, and Metabolism 08/29/22 Nini Patten MD [address] [place] [address] Assigned Endocrinology Provider 01/20/23 11/25/24 Margaret Reyes [facility] Pharmacist 08/10/23 Adria Cisneros MD [address] [place] [address] Rheumatology 11/09/23 Adria Cisneros MD [address] [place] [address] Rheumatology 11/09/23 Adria Cisneros MD [address] [place] [address] Assigned Rheumatology Provider 02/26/24 Margaret Reyes [facility] Assigned MTM Pharmacist 06/28/24 Adria Cisneros MD [address] [place] [address] Rheumatology 08/01/24 documented as of this encounter
--- OUTSIDE RECORDS SUMMARY | 2025-05-21 12:46 | XMS_ITS | Encounter Summary ---
Author Organization [place] Address [address] [place] [address] Care Team Providers Care Mincing Machine Operator Name Role Phone ZuleymaChristalromancamila Naranjo [facility], [facility] Unavailable +[phone] Shaan Ramirez MD Unavailable [phone] Luis Ambriz MD Primary Care Provider [phone] MD Unavailable [phone] Nini Patten MD Unavailable [phone] Nini Patten MD Unavailable [phone] Margaret Reyes [facility] Unavailable Unavailable Adria Cisneros MD Unavailable [phone] Adria Cisneros MD Unavailable [phone] Adria Cisneros MD Unavailable [phone] Margaret Reyes [facility] Unavailable Unavailable Adria Cisneros MD Unavailable [phone] Encounter Details Date Type Department Care Team (Late st Contact Info) Description 05/17/2022 [facility] Advice [facility] Rheumatology Clinic [address] [address] MD [facility], Rheumatology [address] [place] [address] Social History Tobacco Use Types Packs/Day [...] Info) Description 05/25/2025 11:30 AM CDT Lab [facility] [address] [place] [address] 07/29/2025 8:40 AM TEACHER OF FAMILY AND CONSUMER SCIENCE Office Visit [facility] [address] 9[facility] 9A [place] [address] Kapil Kay MD [facility] [place] [address] 08/25/2025 1:00 PM TEACHER OF FAMILY AND CONSUMER SCIENCE Lab [facility] Laboratory [address] [place] [address] 12/08/2025 1:00 PM CDT Virtual Visit [address] [place] [address] Adria Cisneros MD 515 [facility] 88 [place] [address] documented as of this encounter Visit Diagnoses Not on filedocumented in this encounter Additional Health Concerns Assessment Noted Time PHQ-9 Depression Total Score: 4 03/27/20 22 9:21 AM CDT documented as of this encounter Care Teams Mincing Machine Operator Relationship Specialty Start Date End Date Luis mAbriz MD 6 [place] [address] PCP - General Family Medicine 02/16/22 Bola Amor, WAISTLINE JOINER, [facility] [address] [facility] [address] [facility] 180 [place] [address] Assigned Behavioral Health Provider 12/04/21 06/27/24 Shaan Ramirez MD [address] [place] [address] Assigned Surgical Provider 12/04/[address] MD [address] [place] [place] [address] Assigned Rheumatology Provider 02/25/22 02/25/24 Nini Patten MD [address] [place] [address] Endocrinology, Diabetes, and Metabolism 08/29/22 Nini Patten MD [address] [place] [address] Assigned Endocrinology Provider 01/20/23 11/25/24 Margaret Reyes [facility] Pharmacist 08/10/23 Adria Cisneros MD [address] [place] [address] Rheumatology 11/09/23 Adria Cisneros MD [address] [place] [address] Rheumatology 11/09/23 Adria Cisneros MD [address] [place] [address] 862725 Assigned Rheumatology Provider 02/26/24 Margaret Reyes [facility] Assigned MTM Pharmacist 06/28/24 Adria Cisneros MD [address] [place] [address] Rheumatology 08/01/24 documented as of this encounter
--- OUTSIDE RECORDS SUMMARY | 2025-05-21 12:46 | XMS_ITS | Encounter Summary ---
Author Organization [place] Address [address] [place] [address] Care Team Providers Care Panel Lay Up Worker Name Role Phone ZuleymaChristalromancamila Naranjo [facility], [facility] Unavailable + [phone] Shaan Ramirez MD Unavailable [phone] Luis Ambriz MD Primary Care Provider [phone] MD Unavailable [phone] Nini Patten MD Unavailable [phone] Nini Patten MD Unavailable [phone] Margaret Reyes [facility] Unavailable Unavailable Adria Cisneros MD Unavailable [phone] Adria Cisneros MD Unavailable [phone] Adria Cisneros MD Unavailable [phone] Margaret Reyes [facility] Unavailable Unavailable Adria Cisneros MD Unavailable [phone] Encounter Details Date Type Department Care Team (Late st Contact Info) Description 08/05/2023 External Order Results [facility] Special[facility] Laboratories [address] [place] [address] Outside, Provider Social History Tobacco Use Types [...] Info) Description 05/25/2025 11:30 AM CDT Lab [facility] Laboratory [address] [place] [address] 07/29/2025 8:40 AM TANK CAR LOADER Office Visit [facility] 516 [facility] 9th Hi Clin 9A [place] [address] Kapil Kay MD 2450 [place] [address] 08/25/2025 1:00 PM TANK CAR LOADER Lab [facility] Laboratory [address] [place] [address] 12/08/2025 1:00 PM CDT Virtual Visit [facility] [address] [place] [address] Adria Cisneros MD [address] [place] [address] documented as of this encounter Procedures Procedure Name Priority Date/Time Associated Diagnosis Comments CBC WITH PLATELETS & DIFFERENTIAL Routine 08/05/2023 2:44 PM TANK CAR LOADER ERYTHROCYTE SEDIMENTATION RATE AUTO Routine 08/05/2023 2:44 PM TANK CAR LOADER CRP INFLAMMATION Routine 08/05/2023 2:44 PM TANK CAR LOADER COMPREHENSIVE METABOLIC PANEL Routine 08/05/2023 2:44 PM TANK CAR LOADER documented in this encounter Results * (ABNORMAL) Comprehensive metabolic panel (08/05/2023 2:44 PM TANK CAR LOADER) Sodium (External) 139 135 - 149 mmol/L [...] BLOOD SPECIMEN / Unknown 08/05/2023 2:44 PM TANK CAR LOADER Narrative WO[facility] PFT - 08/08/2023 10:56 AM TANK CAR LOADER Verified by Hilario Stevenson on 08/08/2023. us Provider Outside LAB - BLOOD ORDERABLES Edited R esult - Final NIKOLAIJUAN J PFLauro NON-INTERFACED (ONBASE SCANS) * (ABNORMAL) CRP inflammation (08/05/2023 2:44 PM TANK CAR LOADER) [facility] CRP Inflammation (External) <0.5(L) 0.5 - 1.0 mg/dL NON-INTERFACE D (ONBASE SCANS) Blood BLOOD SPECIMEN / Unknown 08/05/2023 2:44 PM TANK CAR LOADER Narrative BREEZE PFT - 08/08/2023 10:56 AM TANK CAR LOADER Verified by Hilario Stevenson on 08/08/2023. Provider Outside LAB - BLOOD ORDERABLES Edited R imgfave Performing Organization Address City/[facility]/ZIP Co de Phone Number NIKOLAIEZE PFT NON-INTERFACED (ONBASE SCANS) * Erythrocyte sedimentation rate auto (08/05/2023 2:44 PM TANK CAR LOADER) [facility] ESR (External) 7 2 - 20 mm/hr NON-INTERFACED (ONBASE SCANS) Blood BLOOD SPECIMEN / Unknown 08/05/2023 2:44 PM TANK CAR LOADER Narrative BREEZE PFT - 08/08/2023 10:56 AM TANK CAR LOADER Verified by Hilario Stevenson on 08/08/2023. Provider Outside LAB - BLOOD ORDERABLES Edited CommonTime Performing Organization Address [facility] de Phone Number LYRICE PFT NON-INTERFACED (ONBASE SCANS) * CBC with Platelets & Differential (08/05/2023 2:44 PM TANK CAR LOADER) [facility] WBC Count (External) 5.07 4.50 - 11.00 [...] BLOOD SPECIMEN / Unknown 08/05/2023 2:44 PM TANK CAR LOADER Narrative WOODY PFLauro - 08/08/2023 10:56 AM TANK CAR LOADER Verified by Hilario Stevenson on 08/08/2023. us Provider Outside LAB - BLOOD ORDERABLES Edited R esult - Final NIKOLAIJUAN J PFLauro NON-INTERFACED (ONBASE SCANS) documented in this encounter Visit Diagnoses Not on filedocumented in this encounter Additional Health Concerns Assessment Noted Time PHQ-9 Depression Total Score: 4 12/25/19 23 2:25 PM CDT documented as of this encounter Care Teams Panel Lay Up Worker Relationship Specialty Start Date End Date Luis Ambriz MD 6 [place] [address] PCP - General Family Medicine 02/16/22 Bola Amor, URGENT CARE TECHNICIAN, [facility] [address] [facility] [address] [facility] 180 [place] [address] Assigned Behavioral Health Provider 12/04/21 06/27/24 Shaan Ramirez MD [address] [place] [address] 047185 Assigned Surgical Provider 12/04/[address] MD [address] [place] [address] Assigned Rheumatology Provider 02/25/22 02/25/24 Nini Patten MD [address] [place] [address] Endocrinology, Diabetes, and Metabolism 08/29/22 Nini Patten MD [address] [place] [address] Assigned Endocrinology Provider 01/20/23 11/25/24 Margaret Reyes, [facility] 08/10/23 Adria Cisneros MD [address] [place] [address] 918965 Rheumatology 11/09/23 Adria Cisneros MD [address] [place] [address] 760085 Rheumatology 11/09/23 Adria Cisneros MD [address] [place] [address] [phone] Assigned Rheumatology Provider 02/26/24 Margaret Reyes [facility] Assigned MTM Pharmacist 06/28/24 Adria Cisneros MD [address] [place] [address] 013625 Rheumatology 08/01/24 documented as of this encounter
--- OUTSIDE RECORDS SUMMARY | 2025-05-21 12:46 | XMS_ITS | Encounter Summary ---
Author Organization [place] Address [address] [place] [address] Care Team Providers Care Astronomy Department Chair Name Role Phone Zuleyma Christalromancamila Naranjo [facility] Unavailable +[phone] Shaan Ramirez MD Unavailable [phone] Luis Ambriz MD Primary Care Provider [phone] MD Unavailable [phone] Nini Patten MD Unavailable [phone] Nini Patten MD Unavailable [phone] Margaret Reyes [facility] Unavailable Unavailable Adria Cisneros MD Unavailable [phone] Adria Cisneros MD Unavailable [phone] Adria Cisneros MD Unavailable +[phone] Margaret Reyes [facility] Unavailable Unavailable Adria Cisneros MD Unavailable [phone] Encounter Details Date Type Department Care Team (Late st Contact Info) Description 01/07/2022 [facility] Eye [place] 867386 [facility] 9 Wi Clin 9A [place] [address] Shaan Ramirez MD [address] [place] [address] [phone] Intermediate uveitis of both eyes (Primary Dx) [...] AM CDT Lab [facility] Laboratory [address] [place] [address] 07/29/2025 8:40 AM BLIND TEACHER Office Visit [facility] - [address] 9[facility] 9A [place] [address] Kapil Kay MD [facility] [place] [address] 08/25/2025 1:00 PM BLIND TEACHER Lab [address] [address] 12/08/2025 1:00 PM CDT Virtual Visit [facility] [address] [place] [address] Adria Cisneros MD [address] [place] [address] documented as of this encounter Visit Diagnoses Diagnosis Intermediate uveitis of both eyes- Primary documented in this encounter Additional Health Concerns Assessment Noted Time PHQ-9 Depression Total Score: 7 01/05/20 22 12:23 PM CDT documented as of this encounter Care Teams Astronomy Department Chair Relationship Specialty Start Date End Date Luis Ambriz MD 6 [place] [address] PCP - General Family Medicine 02/16/22 Bola Amor, [facility] [address] [facility] [address] [facility] 180 [place] [address] Assigned Behavioral Health Provider 12/04/21 06/27/24 Shaan Ramirez MD [address] [place] [address] Assigned Surgical Provider 12/04/[address] MD [address] [place] [address]67 Assigned Rheumatology Provider 02/25/22 02/25/24 Nini Patten MD [address] [place] [address] Endocrinology, Diabetes, and Metabolism 08/29/22 Nini Patten MD [address] [place] [address] 390[address] Assigned Endocrinology Provider 01/20/23 11/25/24 Margaret Reyes, [facility] 08/10/23 Adria Cisneros MD [address] [place] [address] Rheumatology 11/09/23 Adria Cisneros MD [address] [place] [address] Rheumatology 11/09/23 Adria Cisneros MD [address] [place] [address] 535705 Assigned Rheumatology Provider 02/26/24 Margaret Reyes [facility] Assigned MTM Pharmacist 06/28/24 Adria Cisneros MD [address] [place] [address] Rheumatology 08/01/24 documented as of this encounter
--- OUTSIDE RECORDS SUMMARY | 2025-05-21 12:46 | XMS_ITS | Encounter Summary ---
Author Organization [place] Address [address] [place] [address] Care Team Providers Care Lead Supply Worker Name Role Phone ZuleymaBola [facility], [facility] Unavailable [phone] Shaan Ramirez MD Unavailable [phone] Luis Ambriz MD Primary Care Provider [phone] Nini Patten MD Unavailable +[phone] Nini Patten MD Unavailable +[phone] Margaret Reyes [facility] Unavailable Unavailable Adria Cisneros MD Unavailable [phone] Adria Cisneros MD Unavailable [phone] Adria Cisneros MD Unavailable [phone] Margaret Reyes [facility] Unavailable Unavailable Adria Cisneros MD Unavailable [phone] Encounter Details Date Type Department Care Team (Late st Contact Info) Description 05/14/2024 Jac[facility]eline Medical Advice [facility] [address] [address] Margaret Reyes, [facility] Social History Tobacco Use Types [...] Info) Description 05/25/2025 11:30 AM CDT Lab [facility] [address] [place] [address] 07/29/2025 8:40 AM FEED CRUSHER OPERATOR Office Visit [facility] Eye [facility] 516 [facility] 9th [facility] 9A [place] [phone] Kapil Kay MD 2450 [place] [address] 08/25/2025 1:00 PM FEED CRUSHER OPERATOR Lab [facility] [address] [place] [address] 12/08/2025 1:00 PM CDT Virtual Visit [facility] [address] [place] [address] [place] [address] Adria Cisneros MD 515 [facility] 88 [place], [place] 218605 documented as of this encounter Visit Diagnoses Not on filedocumented in this encounter Additional Health Concerns Assessment Noted Time PHQ-9 Depression Total Score: 4 12/25/19 23 2:25 PM CDT documented as of this encounter Care Teams Lead Supply Worker Relationship Specialty Start Date End Date Luis Ambriz MD 6 [place], [place] 644075 PCP - General Family Medicine 02/16/22 Bola Amor, TUG MASTER, [facility] S [facility] [address] [address] Assigned Behavioral Health Provider 12/04/21 06/27/24 Shaan Ramirez MD [address] [place] [address] Assigned Surgical Provider 12/04/21 Nini Patten MD [address] [place] [address] Endocrinology, Diabetes, and Metabolism 08/29/22 Nini Patten MD [address] [place] [address] Assigned Endocrinology Provider 01/20/23 11/25/24 Margaret Reyes [facility] Pharmacist 08/10/23 Adria Cisneros MD [address] [place] [address] Rheumatology 11/09/23 Adria Cisneros MD [address] [place] [address] Rheumatology 11/09/23 Adria Cisneros MD [address] [place] [address] Assigned Rheumatology Provider 02/26/24 Margaret Reyes [facility] Assigned MTM Pharmacist 06/28/24 Adria Cisneros MD [address] [place] [address] Rheumatology 08/01/24 documented as of this encounter
--- OUTSIDE RECORDS SUMMARY | 2025-05-21 12:46 | XMS_ITS | Encounter Summary ---
Author Organization [place] Address [address] [place] [address] Care Team Providers Care Coal Handler Name Role Phone ZuleymaBola [facility], [facility] Unavailable [phone] Shaan Ramirez MD Unavailable [phone] Luis Ambriz MD Primary Care Provider [phone] MD Unavailable [phone] Nini Patten MD Unavailable [phone] Nini Patten MD Unavailable [phone] Margaret Reyes [facility] Unavailable Unavailable Adria Cisneros MD Unavailable [phone] Adria Cisneros MD Unavailable [phone] Adria Cisneros MD Unavailable [phone] Margaret Reyes [facility] Unavailable Unavailable Adria Cisneros MD Unavailable [phone] Reason for Visit * Reason Onset Date Comments Lab Orders 01/11/2023 Fax to [facility] at [phone] Encounter Details Date Type Department Care Team (Latest Contact Info) Description 01/11/2023 Jacqueline Medical Natasha Naranjo [facility] [address] [address] MD Health [facility], Rheumatology [address] [place] [address] Lab Orders (Fax to [facility] at 50... Social History Tobacco Use [...] Lab orders have been successfully faxed to [facility] as requested. Confirmed via Rightfax. Amber Orozco CMA 01/15/2023 10:41 AM documented in this encounter Plan of Treatment Upcoming Encounters Date Type Department Care Team (Late st Contact Info) Description 05/25/2025 11:30 AM CDT Lab [facility] [address] [place] [address] 07/29/2025 8:40 AM FIRE SAFETY MANAGER Office Visit [facility] - [address] 9[facility] 9A [place] [address] Kapil Kay MD [facility]0 [place] [address] 08/25/2025 1:00 PM FIRE SAFETY MANAGER Lab [facility] Laboratory [address] [place] [address] 12/08/2025 1:00 PM CDT Virtual Visit [place] [address] [place] [phone] Adria Cisneros MD 515 [facility] 88 [place] [address] documented as of this encounter Visit Diagnoses Not on filedocumented in this encounter Additional Health Concerns Assessment Noted Time PHQ-9 Depression Total Score: 4 12/25/19 23 2:25 PM CDT documented as of this encounter Care Teams Coal Handler Relationship Specialty Start Date End Date Luis Ambriz MD 6 [place], [place] 521995 PCP - General Family Medicine 02/16/22 Bola Amor, [facility], [facility] [address] [facility] 180 [place] [address] Assigned Behavioral Health Provider 12/04/21 06/27/24 Shaan Ramirez MD 6 [place] [address] Assigned Surgical Provider 12/04/[address] MD [address] [place] [address] Assigned Rheumatology Provider 02/25/22 02/25/24 Nini Patten MD [address] [place] [address] Endocrinology, Diabetes, and Metabolism 08/29/22 Nini Patten MD [address] [place] [address] Assigned Endocrinology Provider 01/20/23 11/25/24 Margaret Reyes [facility] Pharmacist 08/10/23 Adria Cisneros MD [address] [place] [address] Rheumatology 11/09/23 Adria Cisneros MD [address] [place] [address] Rheumatology 11/09/23 Adria Cisneros MD [address] [place] [address] 569305 Assigned Rheumatology Provider 02/26/24 Margaret Reyes [facility] Assigned MTM Pharmacist 06/28/24 Adria Cisneros MD [address] [place] [address] Rheumatology 08/01/24 documented as of this encounter
--- OUTSIDE RECORDS SUMMARY | 2025-05-21 12:46 | XMS_ITS | Encounter Summary ---
Author Organization [place] Address [address] [place] [address] Care Team Providers Care Core Rescuer Name Role Phone ZuleymaBola [facility] Unavailable [phone] Shaan Ramirez MD Unavailable [phone] Luis Ambriz MD Primary Care Provider [phone] MD Unavailable [phone] Nini Patten MD Unavailable [phone] Nini Patten MD Unavailable [phone] Margaret Reyes [facility] Unavailable Unavailable Adria Cisneros MD Unavailable [phone] Adria Cisneros MD Unavailable [phone] Adria Cisneros MD Unavailable [phone] Margaret Reyes [facility] Unavailable Unavailable Adria Cisneros MD Unavailable [phone] Encounter Details Date Type Department Care Team (Late st Contact Info) Description 01/04/2023 [facility] [address] 3rd [place] [address] Rika Adler CMA Social History [...] Info) Description 05/25/2025 11:30 AM CDT Lab [facility] Laboratory [address] [place] [address] 07/29/2025 8:40 AM SAND CONDITIONER Office Visit [facility] Eye [facility] 516 [facility] 9th Fl Clin 9A [place] [address] Kapil Kay MD 2450 [place] [address] 08/25/2025 1:00 PM SAND CONDITIONER Lab [facility] [address] [place] [address] 12/08/2025 1:00 PM CDT Virtual Visit [facility] [address] [place] [phone] Adria Cisneros MD 515 [facility] 88 [place] [address] documented as of this encounter Visit Diagnoses Not on filedocumented in this encounter Additional Health Concerns Assessment Noted Time PHQ-9 Depression Total Score: 4 12/25/19 23 2:25 PM CDT documented as of this encounter Care Teams Core Rescuer Relationship Specialty Start Date End Date Luis Ambriz MD 516 [place], [place] [address]185 PCP - General Family Medicine 02/16/22 Bola Amor, GLUELINE WORKER, LADC [address] [place] 180 [place], [place] [address]15 Assigned Behavioral Health Provider 12/04/21 06/27/24 Shaan Ramirez MD 6 [place] [address] Assigned Surgical Provider 12/04/[address] MD [address] [place] [address] Assigned Rheumatology Provider 02/25/22 02/25/24 Nini Patten MD [address] [place] [address] Endocrinology, Diabetes, and Metabolism 08/29/22 Nini Patten MD [address] [place] [address] 037065 Assigned Endocrinology Provider 01/20/23 11/25/24 Margaret Reyes [facility] Pharmacist 08/10/23 Adria Cisneros MD [address] [place] [address] Rheumatology 11/09/23 Adria Cisneros MD [address] [place] [address] Rheumatology 11/09/23 Adria Cisneros MD [address] [place] [address] Assigned Rheumatology Provider 02/26/24 Margaret Reyes [facility] Assigned MTM Pharmacist 06/28/24 Adria Cisneros MD [address] [place] [address] Rheumatology 08/01/24 documented as of this encounter
--- OUTSIDE RECORDS SUMMARY | 2025-05-21 12:46 | XMS_ITS | Encounter Summary ---
Author Organization [place] Address [address] [place] [address] Care Team Providers Care Force Dispatcher Name Role Phone ZuleymaBola [facility], [facility] Unavailable [phone] Shaan Ramirez MD Unavailable [phone] Luis Ambriz MD Primary Care Provider [phone] MD Unavailable [phone] Nini Patten MD Unavailable [phone] Nini Patten MD Unavailable [phone] Margaret Reyes [facility] Unavailable Unavailable Adria Cisneros MD Unavailable [phone] Adria Cisneros MD Unavailable [phone] Adria Cisneros MD Unavailable [phone] Margaret Reyes [facility] Unavailable Unavailable Adria Cisneros MD Unavailable [phone] Encounter Details Date Type Department Care Team (Late st Contact Info) Description 05/14/2023 [facility] Eye [address] 9[facility] Clin [address] [place] [address] Baljinder Friend Social History Tobacco Use Types [...] AM CDT Lab [facility] Laboratory [address] [place] [address] 07/29/2025 8:40 AM BRAKE LININGS COATER Office Visit [facility] Eye [facility] 516 [facility] 9th [facility] 9A [place] [address] Kapil Kay MD 2450 [place] [address] 08/25/2025 1:00 PM BRAKE LININGS COATER Lab [facility] [address] [place] [address] 12/08/2025 1:00 PM CDT Virtual Visit [facility] [address] [place] [address] [place] [phone] Adria Cisneros MD 515 [facility] 88 [place], [place] [address] documented as of this encounter Visit Diagnoses Not on filedocumented in this encounter Additional Health Concerns Assessment Noted Time PHQ-9 Depression Total Score: 4 12/25/19 23 2:25 PM CDT documented as of this encounter Care Teams Force Dispatcher Relationship Specialty Start Date End Date Luis Ambriz MD 6 [place], [place] 9[address]25 PCP - General Family Medicine 02/16/22 Bola Amor, WINDLASSER, [facility] S [address] [address] Assigned Behavioral Health Provider 12/04/21 06/27/24 Shaan Ramirez MD [address] [place] [address] Assigned Surgical Provider 12/04/[address] MD [address] [place] [address] Assigned Rheumatology Provider 02/25/22 02/25/24 Nini Patten MD [address] [place] [address] Endocrinology, Diabetes, and Metabolism 08/29/22 Nini Patten MD [address] [place] [address] Assigned Endocrinology Provider 01/20/23 11/25/24 Margaret Reyes [facility] Pharmacist 08/10/23 Adria Cisneros MD [address] [place] [address] Rheumatology 11/09/23 Adria Cisneros MD [address] [place] [address] Rheumatology 11/09/23 Adria Cisneros MD [address] [place] [address] Assigned Rheumatology Provider 02/26/24 Margaret Reyes [facility] Assigned MTM Pharmacist 06/28/24 Adria Cisneros MD [address] [place] [address] Rheumatology 08/01/24 documented as of this encounter
--- OUTSIDE RECORDS SUMMARY | 2025-05-21 12:46 | XMS_ITS | Encounter Summary ---
Author Organization [place] Address [address] [place] [address] Care Team Providers Care Paint Roller Cover Machine Setter Name Role Phone ZuleymaChristalromancamila Naranjo [facility], [facility] Unavailable [phone] Shaan Ramirez MD Unavailable [phone] Luis Ambriz MD Primary Care Provider [phone] MD Unavailable [phone] Nini Patten MD Unavailable [phone] Nini Patten MD Unavailable [phone] Margaret Reyes [facility] Unavailable Unavailable Adria Cisneros MD Unavailable [phone] Adria Cisneros MD Unavailable [phone] Adria Cisneros MD Unavailable [phone] Margaret Reyes [facility] Unavailable Unavailable Adria Cisneros MD Unavailable [phone] Encounter Details Date Type Department Care Team (Late st Contact Info) Description 09/13/2022 [facility] Medical Advice [facility] [address] [address] MD Health [facility], Rheumatology [address] [place] [address] Social History Tobacco Use Types Packs/Day [...] at 10A Jayla Elise RN Rheumatology Clinic CARD PRESS OPERATOR * Telephone Encounter - Jayla Elise RN - 09/13/2022 2:37 PM CSTSummary: patient update on culture results Spoke to patient regarding her MyC message update about staph infection. Reporting she saw cumulative effects analyst, Dr. Francisca Lomeli at [facility] d/t recurrent skin infections. This visit included a nasal swab/culture of her nares. Patient has included a copy of the visit note and will upload the culture results later today whichpatient reports was positive for Staph infection. Hand Outside Cutter is recommending extensive antbx regime. Patient verifies she 1-is not taking methotrexate 2-will recheck her labs on 09/25 3--stopped humira apprx 6 wks ago on her own thinking it was causing her repeated infections. Message update to Dr. Lane. CARD PRESS OPERATOR CARD PRESS OPERATOR documented in this encounter Plan of Treatment Upcoming Encounters Date Type Department Care Team (Late st Contact Info) Description 05/25/2025 11:30 AM CDT Lab [facility] [address] [place] [address] 07/29/2025 8:40 AM TAB CARD PRESS OPERATOR Office Visit [facility] 516 [facility] 9th Fl Clin 9A [place] [address] Kapil Kay MD [address] [place] [address] 08/25/2025 1:00 PM TAB CARD PRESS OPERATOR Lab [facility] [address] [place] [address] 12/08/2025 1:00 PM CDT Virtual Visit [facility] [address] [address] [place] [address] Adria Cisneros MD 515 [facility] 88 [place] [address] documented as of this encounter Visit Diagnoses Not on filedocumented in this encounter Additional Health Concerns Assessment Noted Time PHQ-9 Depression Total Score: 10 023 9:59 AM TAB CARD PRESS 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 Care Teams Paint Roller Cover Machine Setter Relationship Specialty Start Date End Date Luis Ambriz MD 6 [place] [address] PCP - General Family Medicine 02/16/22 Bola Amor, BROACHER, [facility] [address] [place] [address] Assigned Behavioral Health Provider 12/04/21 06/27/24 Shaan Ramirez MD [address] [place] [address] Assigned Surgical Provider 12/04/[address] MD 516 [place] [address] Assigned Rheumatology Provider 02/25/22 02/25/24 Nini Patten MD [address] [place] [address] Endocrinology, Diabetes, and Metabolism 08/29/22 Nini Patten MD [address] [place] [address] 646935 Assigned Endocrinology Provider 01/20/23 11/25/24 Margaret Reyes [facility] Pharmacist 08/10/23 Adria Cisneros MD [address] [place] [address] Rheumatology 11/09/23 Adria Cisneros MD [address] [place] [address] Rheumatology 11/09/23 Adria Cisneros MD [address] [place] [address] Assigned Rheumatology Provider 02/26/24 Margaret Reyes [facility] Assigned MTM Pharmacist 06/28/24 Adria Cisneros MD [address] [place] [address] Rheumatology 08/01/24 documented as of this encounter
--- OUTSIDE RECORDS SUMMARY | 2025-05-21 12:47 | XMS_ITS | Encounter Summary ---
Author Organization [place] Address [address] [place] [address] Care Team Providers Care Safety Investigator/Cause Analyst Name Role Phone Shaan Ramirez MD Unavailable [phone] Luis Ambriz MD Primary Care Provider [phone] iNni Patten MD Unavailable [phone] Margaret Reyes [facility] Unavailable Unavailable Adria Cisneros MD Unavailable [phone] Adria Cisneros MD Unavailable [phone] Adria Cisneros MD Unavailable [phone] Margaret Reyes [facility] Unavailable Unavailable Adria Cisneros MD Unavailable [phone] Encounter Details Date Type Department Care Team (Late st Contact Info) Description 04/17/2025 [facility] Eye [address] [place] [address] Baljinder Friend Social History Tobacco Use Types [...] Info) Description 05/25/2025 11:30 AM CDT Lab [facility] [address] [place] [address] 07/29/2025 8:40 AM REVIEWER SALES Office Visit [facility] Eye [facility] 516 [facility] [address] [address] Kapil Kay MD 2450 [place], [place] [address] 08/25/2025 1:00 PM REVIEWER SALES Lab [address] [address] 12/08/2025 1:00 PM CDT Virtual Visit [facility] [address] [facility] [place] [address] Adria Cisneros MD [address] [place] [address] documented as of this encounter Visit Diagnoses Not on filedocumented in this encounter Additional Health Concerns Assessment Noted Time PHQ-9 Depression Total Score: 5 08/01/20 7:42 AM REVIEWER SALES documented as of this encounter Care Teams Safety Investigator/Cause Analyst Relationship Specialty Start Date End Date Luis Amrbiz MD [address] [place] [address] 529575 PCP - General Family Medicine 02/16/22 Shaan Ramirez MD [address] [place] [address] 594425 Assigned Surgical Provider 12/04/21 Nini Patten MD [address] [place] [address] Endocrinology, Diabetes, and Metabolism 08/29/22 Margaret Reyes [facility] Pharmacist 08/10/23 Adria Cisneros MD [address] [place] [address] Rheumatology 11/09/23 Adria Cisneros MD [address] [place] [address] Rheumatology 11/09/23 Adria Cisneros MD [address] [place] [address] 111645 Assigned Rheumatology Provider 02/26/24 Margaret Reyes [facility] Assigned MTM Pharmacist 06/28/24 Adria Cisneros MD [address] [place] [address] Rheumatology 08/01/24 documented as of this encounter
--- OUTSIDE RECORDS SUMMARY | 2025-05-21 12:47 | XMS_ITS | Encounter Summary ---
Author Organization [place] Address [address] [place] [address] Care Team Providers Care Mechanical Fitter Name Role Phone Shaan Ramirez MD Unavailable [phone] Luis Ambriz MD Primary Care Provider [phone] Nini Patten MD Unavailable [phone] Nini Patten MD Unavailable [phone] Margaret Reyes [facility] Unavailable Unavailable Adria Cisneros MD Unavailable [phone] Adria Cisneros MD Unavailable [phone] Adria Cisneros MD Unavailable [phone] Margaret Reyes [facility] Unavailable Unavailable Adria Cisneros MD Unavailable [phone] Encounter Details Date Type Department Care Team (Late st Contact Info) Description 10/01/2024 [facility] [address] [place] [address] [facility] Social History Tobacco Use Types Packs/Day [...] Info) Description 05/25/2025 11:30 AM CDT Lab [facility] [address] [place] [address] 07/29/2025 8:40 AM BLENDING MACHINE OPERATOR Office Visit [facility] Eye [facility] 516 [facility] 9th Vt Clin 9A [place] [address] Kapil Kay MD 2450 [place] [address] 08/25/2025 1:00 PM BLENDING MACHINE OPERATOR Lab [facility] [address] [place] [address] 12/08/2025 1:00 PM CDT Virtual Visit [facility] [address] [place] [address] [place] [address] Adria Cisneros MD [address] [place] [address] documented as of this encounter Visit Diagnoses Not on filedocumented in this encounter Additional Health Concerns Assessment Noted Time PHQ-9 Depression Total Score: 5 08/01/20 24 7:42 AM BLENDING MACHINE 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 Care Teams Mechanical Fitter Relationship Specialty Start Date End Date Luis Ambriz MD [address] [place] [address] 749235 PCP - General Family Medicine 02/16/22 Shaan Ramirez MD [address] [place] [address]205 Assigned Surgical Provider 12/04/21 Nini Patten MD 909 [place] [address] Endocrinology, Diabetes, and Metabolism 08/29/22 Nini Patten MD 909 [place] [address] Assigned Endocrinology Provider 01/20/23 11/25/24 Margaret Reyes [facility] Pharmacist 08/10/23 Adria Cisneros MD [address] [place] [address] Rheumatology 11/09/23 Adria Cisneros MD [address] [place] [address] Rheumatology 11/09/23 Adria Cisneros MD [address] [place] [address] Assigned Rheumatology Provider 02/26/24 Margaret Reyes [facility] Assigned MTM Pharmacist 06/28/24 Adria Cisneros MD [address] [place] [address] Rheumatology 08/01/24 documented as of this encounter
--- OUTSIDE RECORDS SUMMARY | 2025-05-21 12:47 | XMS_ITS | Encounter Summary ---
Author Organization [place] Address [address] [place] [address] Care Team Providers Care Head Of History Name Role Phone hSaan Ramirez MD Unavailable [phone] Luis Ambriz MD Primary Care Provider [phone] Nini Patten MD Unavailable [phone] Nini Patten MD Unavailable [phone] Margaret Reyes [facility] Unavailable Unavailable Adria Cisneros MD Unavailable [phone] Adria Cisneros MD Unavailable [phone] Adria Cisneros MD Unavailable [phone] Margaret Reyes [facility] Unavailable Unavailable Adria Cisneros MD Unavailable [phone] Encounter Details Date Type Department Care Team (Late st Contact Info) Description 09/17/2024 [facility] Medical Advice [facility] [address] [address] Adria Cisneros MD [address] [place] [address] Social History Tobacco Use Types Packs/Day [...] Info) Description 05/25/2025 11:30 AM CDT Lab [facility] [address] [place] [address] 07/29/2025 8:40 AM DAIRY PROCESSING EQUIPMENT OPERATOR Office Visit [facility] Emergency Department [address] [facility] [address] [address] Kapil Kay MD 2450 [place] [address] 08/25/2025 1:00 PM DAIRY PROCESSING EQUIPMENT OPERATOR Lab [facility] [address] [place] [address] 12/08/2025 1:00 PM CDT Virtual Visit [facility] [address] [place] [address] [place] [address] Adria Cisneros MD [address] [place] [address] documented as of this encounter Visit Diagnoses Not on filedocumented in this encounter Additional Health Concerns Assessment Noted Time PHQ-9 Depression Total Score: 5 08/01/20 24 7:42 AM DAIRY PROCESSING EQUIPMENT 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 Care Teams Head Of History Relationship Specialty Start Date End Date Luis Ambriz MD [address] [place] [address] PCP - General Family Medicine 02/16/22 Shaan Ramirez MD 516 [place] [address] Assigned Surgical Provider 12/04/21 Nini Patten MD 909 [place] [address] Endocrinology, Diabetes, and Metabolism 08/29/22 Nini Patten MD 9 [place] [address] Assigned Endocrinology Provider 01/20/23 11/25/24 Margaret Reyes [facility] Pharmacist 08/10/23 Adria Cisneros MD [address] [place] [address] Rheumatology 11/09/23 Adria Cisneros MD [address] [place] [address] Rheumatology 11/09/23 Adria Cisneros MD [address] [place] [address] Assigned Rheumatology Provider 02/26/24 Margaret Reyes [facility] Assigned MTM Pharmacist 06/28/24 Adria Cisneros MD [address] [place] [address] Rheumatology 08/01/24 documented as of this encounter
--- OUTSIDE RECORDS SUMMARY | 2025-05-21 12:47 | XMS_ITS | Encounter Summary ---
Author Organization [place] Address [address] [place] [address] Care Team Providers Care Middle School Librarian Name Role Phone Shaan Ramirez MD Unavailable [phone] Luis mAbriz MD Primary Care Provider [phone] Nini Patten MD Unavailable [phone] Nini Patten MD Unavailable [phone] Margaret Reyes [facility] Unavailable Unavailable Adria Cisneros MD Unavailable [phone] Adria Cisneros MD Unavailable [phone] Adria Cisneros MD Unavailable [phone] Margaret Reyes [facility] Unavailable Unavailable Adria Cisneros MD Unavailable [phone] Encounter Details Date Type Department Care Team (Late st Contact Info) Description 08/19/2024 [facility] Medical Advice [facility] Rheumatology Clinic [address] [address] Adria Cisneros MD [address] [place] [address] Social History Tobacco Use Types Packs/Day [...] Description 05/25/2025 11:[address] [facility] [address] [place] [address] 07/29/2025 8:40 AM HOSPITALIST MEDICAL DIRECTOR Office Visit [facility] [place] Emergency Department 516 [facility] [address] [address] Kapil Kay MD 2450 [place] [address] 08/25/2025 1:00 PM HOSPITALIST MEDICAL DIRECTOR Lab [facility] [address] [place] [address] 12/08/2025 1:00 PM CDT Virtual Visit [facility] [address] [place] [address] [place] [address] Adria Cisneros MD [address] [place] [address] documented as of this encounter Visit Diagnoses Not on filedocumented in this encounter Additional Health Concerns Assessment Noted Time PHQ-9 Depression Total Score: 5 08/01/20 24 7:42 AM HOSPITALIST MEDICAL DIRECTOR documented as of this encounter Care Teams Middle School Librarian Relationship Specialty Start Date End Date Luis Ambriz MD [address] [place] [address] PCP - General Family Medicine 02/16/22 Shaan Ramirez MD 516 [place] [address] Assigned Surgical Provider 12/04/21 Nini Patten MD 909 [place] [address] Endocrinology, Diabetes, and Metabolism 08/29/22 Nini Patten MD 9 [place] [address] Assigned Endocrinology Provider 01/20/23 11/25/24 Margaret Reyes [facility] Pharmacist 08/10/23 Adria Cisneros MD [address] [place] [address] Rheumatology 11/09/23 Adria Cisneros MD [address] [place] [address] Rheumatology 11/09/23 Adria Cisneros MD [address] [place] [address] Assigned Rheumatology Provider 02/26/24 Margaret Reyes [facility] Assigned MTM Pharmacist 06/28/24 Adria Cisneros MD [address] [place] [address] Rheumatology 08/01/24 documented as of this encounter
--- OUTSIDE RECORDS SUMMARY | 2025-05-21 12:47 | XMS_ITS | Clinical Summary ---
Author Organization [place] Address [address] [place] [address] Care Team Providers Care Assistant In Nursing Name Role Phone Shaan Ramirez MD Unavailable [phone] Luis Ambriz MD Primary Care Provider [phone] Nini Patten MD Unavailable [phone] Margaret eRyes [facility] Unavailable Unavailable Adria Cisneros MD Unavailable [phone] Adria Cisneros MD Unavailable [phone] Adria Cisneros MD Unavailable [phone] Margaret Reyes [facility] Unavailable Unavailable Adria Cisneros MD Unavailable [phone] Allergies Active Allergy Reactions Criticality Noted Date [...] Care Team Description 04/17/2025 [facility] Medical Advice [facility] Eye [address] [phone] [facility] Results Follow-Up [facility] Rheumatology Clinic [address] [phone] Adria Cisneros MD Subj: Message about your results 03/12/2025 2:50 PM CDT Ancillary Procedure [address] [address] Adria Cisneros MD Finger pain, right 03/12/2025 Travel 03/09/2025 2:00 PM CDT Virtual Visit [address] [phone] Adria Cisneros MD Finger pain, right (Primary [...] 106.6 kg (235 lb) 08/01/2024 7:40 AM SUPERINTENDENT GENERATING PLANT Height 167.6 cm (5' 6) 08/01/2024 7:40 AM SUPERINTENDENT GENERATING PLANT Body Mass Index 37.93 08/01/2024 7:40 AM SUPERINTENDENT GENERATING PLANT Plan of Treatment Upcoming Encounters Date Type Department Care Team (Late st Contact Info) Description 05/25/2025 11:30 AM CDT [facility] [address] [place] [address] 07/29/2025 8:40 AM SUPERINTENDENT GENERATING PLANT Office Visit [facility] Eye [facility] Emergency Department Building 516 [facility] Clin [address] [place] [address] Kapil Kay MD [address] [place] [address] 08/25/2025 1:00 PM SUPERINTENDENT GENERATING PLANT Lab [facility] [address] [place] [address] 12/08/2025 1:00 PM CDT Virtual Visit [facility] [address] [place] [address] Adria Cisneros MD 515 [facility] [address] [place] [address] Health Maintenance Due Date Last Done Comments [...] XR HAND RIGHT G/E 3 VIEWS LOCATION: [facility] DATE: 03/12/2025 INDICATION: R 2nd MCP painful; history of psoriasis COMPARISON: None. Procedure Note Bert Hawkins, DO - 03/13/2025 EXAM: XR HAND RIGHT G/E 3 VIEWS LOCATION: [facility] DATE: 03/12/2025 INDICATION: R 2nd MCP painful; history of psoriasis COMPARISON: None. IMPRESSION: Normal joint spaces and alignment. No fracture. Adria Cisneros MD [facility] ORDKenneth AVELAR Final Result * [...] - BLOOD ORDERABLES Final Result [facility] [address] [facility], Room [address] [phone] * (ABNORMAL) Comprehensive metabolic panel (02/13/2025 9:17 [...] - BLOOD ORDERABLES Final Result [facility] [address] [facility], Room [address] [address] * Hepatitis C antibody (01/14/2024 11:14 AM CDT) Pathologist [facility] Hepatitis C Antibody Nonreactive Nonreactive 01/15/2024 9:38 [...] BLOOD ORDERABLES Maisha l Result [facility] Lab [address] [facility], Room 3-580 [place] [address] * Albumin Random Urine Quantitative with Creat [...] control, and institution of therapy with an poxpjrlkuen-qkwzygewjr-kpxyhy (ROBERTO) inhibitor (if the patient can tolerate it). Urine MID-STREAM URINE SPECIMEN / Unknown Non-blood Collection / Unknown 02/02/2023 11:59 AM CDT 02/02/2023 11:59 AM CDT us Nini Patten MD LAB - URINE ORDERABLES Final Result [facility] [address] [facility], Room [address]-580 [place] [address], [facility] [phone] * HIV Antigen Antibody Combo (12/30/2021 9:15 [...] Most Recently Relevant to Health Maintenance Insurance [employer] [place] [id number] [employer] [place] [facility] * Guarantor: Amelia Sr Account Type Relation to Patient Date of Phone Billing Address Medication Therapy Self [address] [place] [phone] [employer] Care Teams Assistant In Nursing Relationship Specialty Start Date End Date Luis Ambriz MD [address] [place] [address] PCP - General Family Medicine 02/16/22 Shaan Ramirez MD [address] [place] [address] Assigned Surgical Provider 12/04/21 Nini Patten MD [address] [place] [address] Endocrinology, Diabetes, and Metabolism 08/29/22 Margaret Reyes [facility] Pharmacist 08/10/23 Adria Cisneros MD [address] [place] [address] Rheumatology 11/09/23 Adria Cisneros MD [address] [place] [address] Rheumatology 11/09/23 Adria Cisneros MD [address] [place] [address] Assigned Rheumatology Provider 02/26/24 Margaret Reyes [facility] Assigned MTM Pharmacist 06/28/24 Adria Cisneros MD [address] [place] [address] Rheumatology 08/01/24
--- OUTSIDE RECORDS SUMMARY | 2025-05-21 12:47 | XMS_ITS | Encounter Summary ---
Author Organization [place] Address [address] [place] [address] Care Team Providers Care Underwater Trapper Name Role Phone ZuleymaBola [facility], [facility] Unavailable [phone] Shaan Ramirez MD Unavailable [phone] Luis Ambriz MD Primary Care Provider [phone] MD Unavailable [phone] Nini Patten MD Unavailable [phone] Nini Patten MD Unavailable [phone] Margaret Reyes [facility] Unavailable Unavailable Adria Cisneros MD Unavailable [phone] Adria Cisneros MD Unavailable [phone] Adria Cisneros MD Unavailable [phone] Margaret Reyes [facility] Unavailable Unavailable Adria Cisneros MD Unavailable [phone] Encounter Details Date Type Department Care Team (Late st Contact Info) Description 05/02/2023 [facility] End[facility]ology Clinic [address] [place] [address] Baljinder Friend Social History Tobacco [...] Info) Description 05/25/2025 11:30 AM CDT Lab [facility] [address] [place] [address] 07/29/2025 8:40 AM PHARMACY COORDINATOR Office Visit [facility] 516 [facility] 9th Ma Clin 9A [place] [address] Kapil Kay MD 2450 [facility] [place] [address] 08/25/2025 1:00 PM PHARMACY COORDINATOR Lab [facility] [address] [place] [address] 12/08/2025 1:00 PM CDT Virtual Visit [facility] [address] [place] [address] Adria Cisneros MD 515 [facility] EMER[facility]ENCY [facility] 88 [place], [place] [address] documented as of this encounter Visit Diagnoses Not on filedocumented in this encounter Additional Health Concerns Assessment Noted Time PHQ-9 Depression Total Score: 4 12/25/19 23 2:25 PM CDT documented as of this encounter Care Teams Underwater Trapper Relationship Specialty Start Date End Date Luis Ambriz MD 516 [place], [place] [phone] PCP - General Family Medicine 02/16/22 Bola Amor, PRODUCTION LINE SOLDERER, LADC [address] [facility] 180 [place], [place] [address] Assigned Behavioral Health Provider 12/04/21 06/27/24 Shaan Ramirez MD [address] [place] [address] Assigned Surgical Provider 12/04/[address] MD [address] [place] [address] 112325 Assigned Rheumatology Provider 02/25/22 02/25/24 Nini Patten MD [address] [place] [address] Endocrinology, Diabetes, and Metabolism 08/29/22 Nini Patten MD [address] [place] [address] Assigned Endocrinology Provider 01/20/23 11/25/24 Margaret Reyes [facility] Pharmacist 08/10/23 Adria Cisneros MD [address] [place] [address] Rheumatology 11/09/23 Adria Cisneros MD [address] [place] [address] Rheumatology 11/09/23 Adria Cisneros MD [address] [place] [address] Assigned Rheumatology Provider 02/26/24 Margaret Reyes [facility] Assigned MTM Pharmacist 06/28/24 Adria Cisneros MD [address] [place] [address] Rheumatology 08/01/24 documented as of this encounter
--- OUTSIDE RECORDS SUMMARY | 2025-05-21 12:47 | XMS_ITS | Encounter Summary ---
Author Organization [place] Address [address] [place] [address] Care Team Providers Care Elevator Pilot Name Role Phone ZuleymaBola [facility], [facility] Unavailable + [phone] Shaan Ramirez MD Unavailable [phone] Luis Ambriz MD Primary Care Provider [phone] MD Unavailable [phone] Nini Patten MD Unavailable [phone] Nini Patten MD Unavailable [phone] Margaret Reyes [facility] Unavailable Unavailable Adria Cisneros MD Unavailable [phone] Adria Cisneros MD Unavailable [phone] Adria Cisneros MD Unavailable [phone] Margaret Reyes [facility] Unavailable Unavailable Adria Cisneros MD Unavailable [phone] Encounter Details Date Type Department Care Team (Late st Contact Info) Description 12/30/2021 External Order Results [facility] [address] [place] [address] Outside, Provider High risk medication use Social [...] Info) Description 05/25/2025 11:30 AM CDT Lab [facility] Laboratory [address] [place] [address] 07/29/2025 8:40 AM UNIT MANAGER Office Visit [facility] Eye [facility] 516 [facility] 9[address] [place] [address] Kapil Kay MD 2450 [place] [address] 08/25/2025 1:00 PM UNIT MANAGER Lab [facility] [address] [place] [address] 12/08/2025 1:00 PM CDT Virtual Visit [facility] [address] [address] [place] [address] Adria Cisneros MD [address] [place] [address] documented as of this encounter Procedures Procedure [...] Edited Result - Final Performing Organization Address City/[facility]/ZIP Co de Phone Number BREEZE PFT NON-INTERFACED [...] Outside LAB - BLOOD ORDERABLES Edited R Apps4Pro - Final Performing Organization Address [facility]/ZIP Co de Phone Number WOODY PFT NON-INTERFACED (ONBASE SCANS) * Hepatitis C antibody (12/30/2021 9:15 AM CDT) Hepatitis C Antibody (External) NEGATIVE NEGATIVE NON-INTERFACE D (ONBASE SCANS) Blood 12/30/2021 9:15 AM CDT Narrative WOODY PFT - 12/30/2021 3:39 PM CDT Verified by Deangelo Carlson on 12/30/2021. Provider Outside LAB - BLOOD ORDERABLES Edited R Apps4Pro - [employer] Performing Organization Address [facility] de Phone Number WOODY PFT NON-INTERFACED (ONBASE SCANS) * (ABNORMAL) Comprehensive metabolic panel (12/30/2021 9:15 AM CDT) Pathologist [facility] ALT (External) 35 4 - 35 U/L [...] documented as of this encounter Care Teams Elevator Pilot Relationship Specialty Start Date End Date Luis Ambriz MD [address] [place] [address] PCP - General Family Medicine 02/16/22 Bola Amor, VETERINARY TOXICOLOGIST, [facility] [address] [place] [address] Assigned Behavioral Health Provider 12/04/21 06/27/24 Shaan Ramirez MD [address] [place] [address] Assigned Surgical Provider 12/04/[address] MD [address] [place] [address] Assigned Rheumatology Provider 02/25/22 02/25/24 Nini Patten MD [address] [place] [address] Endocrinology, Diabetes, and Metabolism 08/29/22 Nini Patten MD [address] [place] [address] Assigned Endocrinology Provider 01/20/23 11/25/24 Margaret Reyes [facility] Pharmacist 08/10/23 Adria Cisneros MD [address] [place] [address] Rheumatology 11/09/23 Adria Cisneros MD [address] [place] [address] Rheumatology 11/09/23 Adria Cisneros MD [address] [place] [address] Assigned Rheumatology Provider 02/26/24 Margaret Reyes [facility] Assigned MTM Pharmacist 06/28/24 Adria Cisneros MD [address] [place] [address] Rheumatology 08/01/24 documented as of this encounter
--- OUTSIDE RECORDS SUMMARY | 2025-05-21 12:47 | XMS_ITS | Encounter Summary ---
Author Organization [place] Address [address] [place] [address] Care Team Providers Care General Sales Manager Name Role Phone Shaan Ramirez MD Unavailable [phone] Luis Ambriz MD Primary Care Provider [phone] Nini Patten MD Unavailable [phone] Margaret Reyes [facility] Unavailable Unavailable Adria Cisneros MD Unavailable [phone] Adria Cisneros MD Unavailable [phone] Adria Cisneros MD Unavailable [phone] Margaret Reyes [facility] Unavailable Unavailable Adria Cisneros MD Unavailable [phone] Encounter Details Date Type Department Care Team (Late st Contact Info) Description 03/26/2025 Results Follow-Up [facility] Rheumatology Clinic [address] [address] Adria Cisneros MD [address] [place] [address] Subj: Message about your results Social [...] Info) Description 05/25/2025 11:30 AM CDT Lab [facility] [address] [place] [address] 07/29/2025 8:40 AM CONFIGURATION MANAGEMENT SPECIALIST Office Visit [facility] Eye [facility] Emergency Department 516 [facility] [address] [address] Kapil Kay MD 2450 [place] [address] 08/25/2025 1:00 PM CONFIGURATION MANAGEMENT SPECIALIST Lab [place] [address] [place] [address] 12/08/2025 1:00 PM CDT Virtual Visit [facility] [address] [place] [address] [place] [address] Adria Cisneros MD [address] [place] [address] 836705 documented as of this encounter Visit Diagnoses Not on filedocumented in this encounter Additional Health Concerns Assessment Noted Time PHQ-9 Depression Total Score: 5 08/01/20 24 7:42 AM CONFIGURATION MANAGEMENT SPECIALIST documented as of this encounter Care Teams General Sales Manager Relationship Specialty Start Date End Date Luis Ambriz MD [address] [place] [address] [id number] PCP - General Family Medicine 02/16/22 Shaan Ramirez MD [address] [place] [address] Assigned Surgical Provider 12/04/21 Nini Patten MD [address] [place] [address] Endocrinology, Diabetes, and Metabolism 08/29/22 Margaret Reyes [facility] Pharmacist 08/10/23 Adria Cisneros MD [address] [place] [address] Rheumatology 11/09/23 Adria Cisneros MD [address] [place] [address] Rheumatology 11/09/23 Adria Cisneros MD [address] [place] [address] Assigned Rheumatology Provider 02/26/24 Margaret Reyes [facility] Assigned MTM Pharmacist 06/28/24 Adria Cisneors MD [address] [place] [address] Rheumatology 08/01/24 documented as of this encounter
--- OUTSIDE RECORDS SUMMARY | 2025-05-21 12:47 | XMS_ITS | Encounter Summary ---
Author Organization [facility] Address [address] [place] [id number] Care Team Providers Care Loom Inspector Name Role Phone Shaan Ramirez MD Unavailable [phone] Luis Ambriz MD Primary Care Provider [phone] Nini Patten MD Unavailable [phone] Margaret Reyes [facility] Unavailable Unavailable Adria Cisneros MD Unavailable [phone] Adria Cisneros MD Unavailable [phone] Adria Cisneros MD Unavailable [phone] Margaret Reyes [facility] Unavailable Unavailable Adria Cisneros MD Unavailable [phone] Encounter Details Date Type Department Care Team (Late st Contact Info) Description 01/16/2025 [facility]Y [address] [place] [address] Mecca Vogel Social History Tobacco Use Types [...] CDT Lab [facility] [address] [place] [address] 07/29/2025 8:40 AM INSPECTOR PACKER GLASS CONTAINER Office Visit [facility] [address] [facility] [address] [address] Kapil Kay MD [address] [place], [place] [address] 08/25/2025 1:00 PM INSPECTOR PACKER GLASS CONTAINER Lab [address] [address] 12/08/2025 1:00 PM CDT Virtual Visit [facility] [id number] [place] [address] [place] [address] Adria Cisneros MD [address] [place] [phone] documented as of this encounter Visit Diagnoses Not on filedocumented in this encounter Additional Health Concerns Assessment Noted Time PHQ-9 Depression Total Score: 5 08/01/20 7:42 AM INSPECTOR PACKER GLASS CONTAINER documented as of this encounter Care Teams Loom Inspector Relationship Specialty Start Date End Date Luis Ambriz MD [address] [place] [address] PCP - General Family Medicine 02/16/22 Shaan Ramirez MD [address] [place] [address] Assigned Surgical Provider 12/04/21 Nini Patten MD [address] [place] [address] Endocrinology, Diabetes, and Metabolism 08/29/22 Margaret Reyes [facility] Pharmacist 08/10/23 Adria Cisneros MD [address] [place] [address] Rheumatology 11/09/23 Adria Cisneros MD [address] [place] [address] [id number] Rheumatology 11/09/23 Adria Cisneros MD [address] [place] [address] [phone] Assigned Rheumatology Provider 02/26/24 Margaret Reyes [facility] Assigned MTM Pharmacist 06/28/24 Adria Cisneros MD [address] [place] [address] [id number] Rheumatology 08/01/24 documented as of this encounter
--- OUTSIDE RECORDS SUMMARY | 2025-05-21 12:47 | XMS_ITS | Clinical Summary ---
Author Organization [employer] [facility] Address [address] [place] [address] Care Team Providers Care Band Log Mill And Carriage Operator Name Role Phone Luis Ambriz MD Primary Care Provider [phone] Allergies Active Allergy Reactions Criticality Noted Date [...] daily. 30 Capsule 04/18/20 25 025 Active Problems Problem Noted Date Diagnosed Date Controlled substance agreeme nt signed, By Yamilka Zelaya, DNP, APPLICATIONS SCIENTIST, FILLER PICKER, psychiatry on 01/21/2024 / eMredith Bedolla LPN 05/13/2024 Overview (05/13/2024): Controlled substance agreement signed 06/09/2021 Overview (06/21/2021): Signed 06-09-2021 Dr. Jennifer Patterson MD Severe episode of recurrent major depressive disorder, without psychotic features PTSD (post-traumatic stress disorder) Attention deficit hyperactiv ity disorder (ADHD), combined type Encounters Date Type Department Care Team Description 03/23/2025 10:50 AM CDT Office Visit [facility] [address] [place] [address] Domonique Wilcox MD Derm Problem 03/22/2025 Travel 03/19/2025 9:30 AM CDT Office Visit [facility] [address] [place] [phone] Yamilka Zelaya NP Follow Up; Medication Management 03/19/2025 Travel 03/14/2025 Travel from Last 3 Months Immunizations Immunization Administration Dates Next Due COVID-19 vaccine (Moderna 100mcg/0.5mL) MD TESHAV 07/20/2021 Influenza RIV4 (Age 18+ Year s) [...] PM CDT Legal Sex Female 12:55 PM SALES EXEC Gender Identity Female 05/02/2020 12:08 PM CDT [...] Description 06/01/2025 1:30 PM CDT Office Visit [facility] [address] [place] [address] Yamilka Zelaya NP [address] [place] [address] 07/27/2025 10:00 AM SALES EXEC Office Visit [facility] [address] [address] [place] [address] [place] [address] Health Maintenance Due Date Last Done Comments [...] Additional history exists Influenza Vaccine (#1) 2025 , 04/14/2020, 2019, Additional history exists Depression screening [...] LC LIPID PANEL Routine 08/07/2022 10:04 AM SALES EXEC Other detention (current) drug therapy CURRICULUM MANAGER THIN PREP PAP SCREEN IMAGED Routine 07/21/2019 5:00 PM SALES EXEC from Last 3 Months or Most Recently Relevant to Health Maintenance Results * PATH TISSUE EXAM (03/23/2025 11:00 AM CDT) Case Report Pathology Report Case: [id number] Authorizing Provider: Domonique Wilcox MD Collected: 03/23/2025 1100 Ordering Location: [facility] Received: 03/23/2025 8410 Specialty Clinic Pathologist: Homero Cheatham MD Specimen: Skin, left nasal ala 03/26/2025 12:13 PM CDT [facility] Final Diagnosis SKIN, LEFT NASAL ALA, BIOPSY: 1. Consistent with benign fibrous papule (angiofibroma) 2. Negative for malignancy 03/26/2025 12:13 PM CDT [facility] at 1212 CDT Clinical Information Angiofibroma. 03/26/2025 12:13 PM CDT [facility] Gross Description A) Received in formalin, labeled with the patient's name and left nasal ala, is a 0.4 x 0.4 x 0.1 cm white to light larsen skin fragment, inked green and bisected. TRB 03/24/2025 03/26/2025 12:13 PM CDT [facility] Microscopic Description The final diagnosis is based on microscopic examination of appropriate sections of all specimens. There is a benign dome-shaped skin growth with fibrovascular stroma and benign squamous surface. The presence of green ink is confirmed on tissue sections. 03/26/2025 12:13 PM CDT [facility] Additional Information Interpreted at [facility] - [address] [facility] [address], [place] [address] 03/26/2025 12:13 PM CDT [facility] Other SPECIMEN FROM SKIN / Unknown Non-Blood / Unknown 03/23/2025 11:00 AM CDT 03/23/2025 2:55 PM CDT us Domonique Wilcox MD PATHOLOGY/CYTOLOGY Final Result [facility] [address] [place] [address], * (ABNORMAL) LC LIPID PANEL (08/07/2022 10:04 AM SALES EXEC) Cholesterol, Total 215(H) 100 - 199 mg/dL 08/10/2022 4:07 PM SALES EXEC [facility] ([facility]) Triglycerides 209(H) 0 - 149 mg/dL 08/10/2022 4:07 PM SALES EXEC [facility] ([facility]) HDL Cholesterol 52 >39 mg/dL 4:07 PM SALES EXEC [facility] ([facility]) VLDL Cholesterol Nick 37 5 - 40 mg/dL 08/10/2022 4:07 PM [facility] (CET) LDL Chol Calc (NIH) 126(H) 0 - 99 mg/dL 08/10/2022 4:07 PM [facility] ([facility]) Blood BLOOD SPECIMEN / Unknown Butterfly / Unknown 08/07/2022 10:04 AM SALES EXEC 08/07/2022 10:07 AM SALES EXEC Narrative [facility] ([facility]) - 08/10/2022 4:07 PM SALES EXEC Performed at: [address] [place] [address] [employer] [address] [phone] Diesel Machinist: Ryley Lewis MD, Phone: [phone] Yamilka Zelaya NP SEND OUTS Final Re sult [facility] ([facility]) [address] [place] [address], * CURRICULUM MANAGER THIN PREP PAP SCREEN IMAGED (07/21/2019 5:00 PM SALES EXEC) Case Report Gynecologic Cytology Report Case: [id number] Authorizing Provider: Luis Ambriz MD Collected: 07/21/2019 1700 Ordering Location: [facility] Received: 07/22/2019 1711 First Screen: Mercedes Guillen Specimen: CURRICULUM MANAGER ThinPrep Vial Screening, Cervical/Vaginal 08/04/2019 4:35 PM SALES EXEC [facility] INTERPRETATION/ RESULT NEGATIVE FOR INTRAEPITHELIAL LESION OR MALIGNANCY (NIL) (none) 08/04/2019 4:35 PM SALES EXEC [facility] at 1635 SALES EXEC SPECIMEN ADEQUACY Satisfactory for evaluation Endocervical component present Scant cellularity 08/04/2019 4:35 PM SALES EXEC [facility] HPV REQUEST HPV and PAP 08/04/2019 4:35 PM SALES EXEC [facility] Date of LMP 04/11/2019 08/04/2019 4:35 PM SALES EXEC [facility] Last Pap Date 08/11/2016 08/04/2019 4:35 PM SALES EXEC [facility] Last Pap Result NIL 9 4:35 PM SALES EXEC [facility] Additional Information 08/04/2019 4:35 PM [facility] Comment: Interpreted at [facility] - [address], [place] [address] Automated Review Successful 08/04/2019 4:35 PM [facility] Comment:Specimen processed s uccessfully by automated trench digging machine operator device, TriplePulsePrep Imaging System, [employer] ANCILLARY TESTING CURRICULUM MANAGER HPV Ordered, Please see separate report 08/04/2019 4:35 PM SALES EXEC [facility] Note The pap test [...] pre-malignant and malignant lesions. 08/04/2019 4:35 PM [facility] Other (Cervical/Vagina l) 07/21/2019 5:00 PM SALES EXEC 07/22/2019 5:11 PM SALES EXEC us Luis Ambriz MD PATHOLOGY/CYTOLOGY Final Resul t [facility] [address] [place] [address], [place] from Last 3 Months or Most Recently Relevant to Health Maintenance Insurance [facility] Care Teams Band Log Mill And Carriage Operator Relationship Specialty Start Date End Date Luis Ambriz MD [address] [place] [address] PCP - General Family Practice 05/11/20
[2025-05-21 12:54] VITALS: BP 161/83; PULSE 100; RESP 20; TEMP 36.2; O2SAT 98; BMI 42.3
--- NOTE | 2025-05-21 13:16 | CRLHL7_ITS ---
For Patients: As a result of the Cures Act, medical imaging exams and procedure reports are released immediately into your electronic medical record. You may view this report before your referring provider. If you have questions, please contact your health care provider. Indication: Cat bite. Technique: Three views of the right thumb. Comparison: None. Findings: No acute osseous abnormality. The joint spaces are preserved. No radiopaque foreign body. Dictated by Ford Gillespie MD @ 05/21/2025 1:44:01 PM (Electronically Signed)
--- NOTE | 2025-05-21 14:28 | PM.ORCN ---
History of Present Illness HPI Date Seen: 05/21/25 Consult date: 05/21/25 Requesting physician: Juan José Quiles Chief complaint: Cat bite R hand last week Narrative: Orthopedics requested for consult regarding patient's right thumb injury after cat bite that occurred on 05/17/2025 (4 days ago). She was attempting to catch a feral cat who bit her right thumb. Was unable to gather the CT in order to test for rabies. Presented to [facility] by ER on 05/18/2025. No labs taken. No imaging taken. Prescribed Augmentin for treatment. Has noticed over the last few days that pain persisted through the thumb, with radiation up the anterior aspect and radial aspect of the forearm. There is associated redness around the thumb which has slightly receded within the marker line. Notes thumb IP joint stiffness, and pain especially along the palmar aspect of the thumb, with 2 small puncture wounds radial volar aspect of the thumb and dorsal thumb. Denies any fevers, chills, or overall body aches. She is right-hand dominant. She takes 2 different immunosuppressive medications for uveitis, psoriasis, and other systemic issues which she did not go into detail. Type 2 diabetic, not medication managed. Last A1c 03/16/2025 was 6.2. Review of Systems Narrative: No recent fevers, chills, or body aches; no numbness or tingling distally. No vision changes or headaches. [facility] Medical History Fatigue ?R53.83 - Other fatigue (ICD-10) Excessive daytime sleepiness ?G47.19 - Other hypersomnia (ICD-10) Psoriasis ?L40.9 - Psoriasis, unspecified (ICD-10) Staph infection ?B95.8 - Unspecified staphylococcus as the cause of diseases classified elsewhere (ICD-10) Hypercholesteremia ?E78.00 - Pure hypercholesterolemia, unspecified (ICD-10) High risk medication use ?Z79.899 - Other intermediate (current) drug therapy (ICD-10) Uveitis of left eye ?H20.9 - Unspecified iridocyclitis (ICD-10) Urinary incontinence ?R32 - Unspecified urinary incontinence (ICD-10) Tinea versicolor ?B36.0 - Pityriasis versicolor (ICD-10) Myalgia and myositis Morbid obesity ?E66.01 - Morbid (severe) obesity due to excess calories (ICD-10) Migraine headache ?G43.909 - Migraine, unspecified, not intractable, without status migrainosus (ICD-10) Hypertension ?I10 - Essential (primary) hypertension (ICD-10) History of gestational diabetes mellitus (GDM) ?Z86.32 - Personal history of gestational diabetes (ICD-10) Hidradenitis suppurativa ?L73.2 - Hidradenitis suppurativa (ICD-10) External hemorrhoids ?K64.4 - Residual hemorrhoidal skin tags (ICD-10) Encounter for annual physical exam ?Z00.00 - Encounter for general adult medical examination without abnormal findings (ICD-10) Difficulty sleeping ?G47.9 - Sleep disorder, unspecified (ICD-10) Dermatitis ?L30.9 - Dermatitis, unspecified (ICD-10) Depression ?F32.A - Depression, unspecified (ICD-10) Controlled type 2 diabetes mellitus ?E11.9 - Type 2 diabetes mellitus without complications (ICD-10) Amenorrhea ?N91.2 - Amenorrhea, unspecified (ICD-10) Surgical History Status post hemorrhoidectomy (2013) ?Z98.890 - Other specified postprocedural states (ICD-10) ?Z87.19 - Personal history of other diseases of the digestive system (ICD-10) Status post endometrial ablation (09/29/14) ?Z98.890 - Other specified postprocedural states (ICD-10) Status post dilation and curettage ?Z98.890 - Other specified postprocedural states (ICD-10) Family History Grandmother Diabetes Breast cancer Grandfather Heart disease Stroke Father Heart disease Social History Narrative: Lifelong nonsmoker. Drinks less than one alcoholic drink per week. 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 current living situation?: I presently have a place to live Problems where you live: no known problems In the past 12 months, utilities in danger of being shut off: no In past 12 months, lack of transportation kept you from medical appts, meetings, work, or getting things needed for daily living: no In the past 12 mos, have been you worried that your food would run out before you had money to buy more?: never true In the past 12 mos, the food you bought just didn't last and you didn't have money to buy more?: never true Highest level of school completed/degree received: some college, no degree Physical activity type: none Smoking Status: Never smoker Do you use any of these nicotine containing products: None Second hand tobacco smoke exposure: Yes (father smoked) How often do you have a drink containing alcohol: 2-4 times a month Alcohol type details: ilia How many standard drinks containing alcohol do you have on a typical day: 1 or 2 How often do you have six or more drinks on one occasion: Never AUDIT-C Alcohol total score: 2 Non-prescribed substance use: denies use Caffeine: Yes (pop) Are you now , , , , never or living with a partner: Social isolation score (0-1 are the most socially isolated patients): 1 How often does anyone, including family, friends and others, physically hurt you: never How often does anyone, including family, friends and others, insult or talk down to you: never How often does anyone, including family, friends and others, threaten you with harm: never How often does anyone, including family, friends and others, scream or curse at you: never Gender Identity: female Are you currently sexually active: Yes Are you using contraception or practicing any form of control: No service: No Meds Home Medications and Allergies Home Medications ?Medication ?Instructions ?Recorded ?Confirmed ?Type folic acid 1 mg tablet 1 mg PO DAILY 04/06/22 05/21/25 History methotrexate sodium 2.5 mg tablet 12.5 mg PO .1 x week 07/20/23 05/21/25 History lisdexamfetamine 30 mg capsule 30 mg PO DAILY 12/13/23 05/21/25 History blood sugar diagnostic (Accu-Chek #100 ea 01/24/24 05/18/25 Rx Guide test strips) lancets (Accu-Chek Softclix #200 ea 01/24/24 05/18/25 Rx Lancets) cholecalciferol (vitamin D3) 50 50 mcg PO QDAY #90 caps 05/16/24 05/21/25 Rx mcg (2,000 unit) capsule clotrimazole 1 % topical cream 1 applic topical BID 2 weeks #45 07/21/24 05/21/25 Rx grams buspirone 15 mg tablet 15 mg PO BID 03/16/25 05/21/25 History diclofenac sodium 1 % topical gel 2 g topical QID PRN joint pain 03/16/25 05/21/25 History hydrocortisone 2.5 % topical cream 1 applic topical BID PRN 03/16/25 05/21/25 History hydroxyzine HCl 25 mg tablet 12.5 - 25 mg PO Q8H PRN insomnia 03/16/25 05/21/25 History losartan 100 mg tablet 100 mg PO DAILY #90 tabs 03/16/25 05/21/25 Rx rosuvastatin 10 mg tablet 10 mg PO DAILY #90 tabs 03/16/25 05/21/25 Rx semaglutide 0.25 mg or 0.5 mg (2 0.5 mg (0.736 mL) subcut QWEEK #3 03/16/25 05/21/25 Rx mg/3 mL) subcutaneous pen injector mL (Ozempic) tofacitinib 11 mg tablet,extended 11 mg PO DAILY 03/16/25 05/21/25 History release 24 hr (Xeljanz XR) venlafaxine 150 mg 150 mg PO DAILY 03/16/25 05/21/25 History capsule,extended release 24 hr amoxicillin 875 mg-potassium 1 tab PO BID #14 tabs 05/18/25 05/21/25 Rx clavulanate 125 mg tablet Allergies Allergy/AdvReac Type Severity Reaction Status Date / Time hydrocodone Allergy Mild Itching Verified 05/21/25 12:58 doxycycline AdvReac Severe Nausea Verified 05/21/25 12:58 Ortho Exam Narrative Exam Narrative: General: Well-developed, well-nourished, A&Ox 3, no apparent acute distress. Pulmonary: Breathing pattern regular, even, without apparent distress or audible wheeze present. Right upper extremity: Mild erythema noted to the dorsum of the thumb IP joint where there is also a small puncture wound with surrounding dry blood directly over the thumb IP joint. There is another puncture wound over the volar radial aspect of the thumb, slightly more proximal along the proximal phalanx right thumb. Neither wound expresses drainage, purulence, or erythematous streaking. Generalized mild-moderate swelling through the right thumb, which I would not classify as fusiform swelling. Marker line along the dorsum of the thumb more proximal metacarpal region shows erythema is very light pink in color and receded within the marker line. This marker line was drawn on 05/18/2025 Grossly tender to palpation along the volar aspect, flexor tendon sheath of the right thumb, and radial aspect of the thumb IP joint. Gentle passive extension of the thumb IP and MCP joint reproduces discomfort along the volar aspect thumb, but no radiation proximal through the hand/wrist. Wrist pronation and supination causes discomfort to the thumb. Mildly tender with palpation anterior forearm Active thumb IP joint flexion approximately 5? without pain; approximate 10? passively with pain through the IP joint deep; does not complain of superficial skin stretching with this motion No gross deformity No further discomfort through the rest of her hand dorsal and volar 2+ radial pulse, pink, warm, appropriate capillary refill digits; intact dermatomes and myotomes distally (radial, ulnar, and median nerve distributions) Const Vital Signs, click to edit/add: Vital Signs - 24 hr 05/21/25 12:54 Temperature 97.2 F L Pulse Rate [Pulse Oximeter] 100 Respiratory Rate 20 Blood Pressure [Left Forearm] 161/83 H Pulse Oximetry 98 Oxygen Delivery Method Room Air Results Labs Labs: WBC 7.28, CRP 1.7, ESR pending Diagnostic results Wrist/Hand x-ray: report reviewed and image reviewed Additional Comments: Three views right thumb ordered by different provider [facility] dated 05/21/2025. These images were reviewed and corroborated with the radiology report showing no acute fractures, avulsions, loose bodies, or foreign bodies. Reduced IP, MCP, and CMC thumb joints. Soft tissue swelling about the thumb. No obvious gas formation within the soft tissues. No interosseous pathology. Assessment and Plan Assessment and plan (1) Pain of right thumb: Status: Acute (2) Cat bite of right thumb with infection: Problem comment: With concern for possible thumb purulent flexor tenosynovitis, and thumb IP joint intra-articular infection Status: Acute (3) Controlled type 2 diabetes mellitus: Problem comment: A1c 6.2 on 03/16/2025 Status: Acute (4) Immunosuppressed status: Problem comment: - on Humira and Methotrexate for uveitis, psoriasis and Hidradenitis suppurativa Status: Acute Plan We had a thorough discussion regarding pathology. My concerns are both for purulent flexor tenosynovitis, and possible thumb IP joint intra-articular infection seeded through the cat bite. However, it is difficult to say if the cat bite went completely through the IP joint. In addition, patient is immunocompromised on both Humira and methotrexate, as well as A1c of 6.2 regarding her type 2 diabetes; thus she is at risk for progression of this infection if not managed/monitored closely. Her CRP is not significantly elevated, only at 1.7, an ESR is pending. WBC is normal. IV antibiotics have already been initiated in the ER. Discussed this patient's case with Dr. Neves in orthopedics, who agrees that initially non operative management is most prudent with IV antibiotics and see how patient responds. This is especially true since patient seems to have failed oral antibiotics outpatient. Recommendation would be for patient to be admitted for IV antibiotics to begin treating this infection with re-evaluation morning of 05/22/2025 by Orthopedics to evaluate if surgical intervention is necessary. No splinting required. Gentle thumb IP, MCP joint motion is encouraged. Medications for pain management appropriate, but I would avoid oral narcotics. If oral narcotics required for pain, then a more urgent re-evaluation is likely necessary. Orthopedics will continue to follow.
[2025-05-21] MEDS: RABIES VACCINE (RABAVERT) 2.5 UNIT IM (14:44)
[2025-05-21 14:47] LABS: Hematocrit* 39.3 % (33.0-51.0); Hemoglobin* 13.5 gm/dL (12.0-16.0); Immature Granulocytes Abs Auto 0.01 K/uL (0.00-0.30); Immature Granulocytes Pct Auto 0.1 %; Lymphocytes Absolute Auto 1.58 K/uL (0.90-2.90); Mean Corpuscular HGB Conc 34 gm/dL (32-36); Mean Corpuscular Hemoglobin 32 pg (26-34); Mean Corpuscular Volume 94 fL (80-100); RDW Coefficient of Variation % 11.7 % (11.5-15.5); Red Blood Count* 4.17 m/uL (4.00-5.20); White Blood Count* 7.28 K/uL (4.50-11.00)
[2025-05-21] MEDS: PIPERACILLIN/TAZOBACTAM 4.5 GM in 0.9 % SODIUM CHLORIDE Mini-bag 100 ML IVPB (14:47)
[2025-05-21 14:51] VITALS: BP 146/92; PULSE 76; RESP 18; TEMP 36.3; O2SAT 99
[2025-05-21 14:53] LABS: Slide Review Reflex No
[2025-05-21 15:01] LABS: Chloride* 99 mmol/L (96-114); Potassium* 3.7 mmol/L (3.6-5.1); Sodium* 134 mmol/L (135-149)
[2025-05-21 15:04] LABS: Anion Gap 5 mEq/L (7-15); Blood Urea Nitrogen* 14 mg/dL (5-24); Calcium* 9.4 mg/dL (8.4-10.6); Carbon Dioxide* 30 mmol/L (20-32); Creatinine* 0.7 mg/dL (0.5-1.5); Est. Creatinine Clearance* 93.01; Estimated Glomerular Filt Rate 107 ml/min; Glucose* 124 mg/dL (60-115)
--- NOTE | 2025-05-21 15:10 | ED_ITS ---
HPI - General Adult General Date Seen: 05/21/25 Chief complaint: Animal Bite Stated complaint: Dog bite R hand last week Time Seen by Provider: 05/21/25 12:51 Source: patient Mode of arrival: ambulatory Limitations: no limitations History of Present Illness HPI narrative: Patient is a 49-year-old female presenting to the emergency department for infection to her right thumb. She was seen emergency department 7 days ago for cat bite from a thorough CT. She was started on Augmentin at that time. She was discharged over the past few days she has been noticing worsening swelling to the right thumb with pain. She does states that the redness to the right the overall had decreased. Diagnosis pain on both dorsal and volar aspect of the thumb. A not state her certain which side. She hour. Does state does seem pain or your these be sitting around the interphalangeal joint. He does state sometimes the pain does radiates up her arm and to her other fingers. Does have pain with movement of the thumb. Does keep her thumb in slight flexion. Has puncture wounds to the volar aspect of the thumb and a couple mm laceration over the dorsal aspect of the IP joint. Has not had any fevers. No other concerns noted. Related Data Home Medications ?Medication ?Instructions ?Recorded ?Confirmed folic acid 1 mg tablet 1 mg PO DAILY 04/06/2205/21 methotrexate sodium 2.5 mg tablet 12.5 mg PO .1 x week 07/20/23 05/21/25 lisdexamfetamine 30 mg capsule 30 mg PO DAILY 12/13/23 05/21/25 buspirone 15 mg tablet 15 mg PO BID 03/16/25 diclofenac sodium 1 % topical gel 2 g topical QID PRN joint pain 03/16/25 05/21/25 hydrocortisone 2.5 % topical cream 1 applic topical BI D PRN 03/16/25 05/21/25 hydroxyzine HCl 25 mg tablet 12.5 - 25 mg PO Q8H PRN i nsomnia 03/16/25 05/21/25 tofacitinib 11 mg tablet,extended 11 mg PO DAILY 03/1605/21/25 release 24 hr (Xeljanz XR) venlafaxine 150 mg 150 mg PO DAILY 03/16/25 capsule,extended release 24 hr Previous Rx's ?Medication ?Instructions ?Recorded blood sugar diagnostic (Accu-Chek #100 ea 01/24/24 Guide test strips) lancets (Accu-Chek Softclix #200 ea 01/24/24 Lancets) cholecalciferol (vitamin D3) 50 50 mcg PO QDAY #90 cap s 05/16/24 mcg (2,000 unit) capsule clotrimazole 1 % topical cream 1 applic topical BID 2 weeks #45 07/21/24 grams losartan 100 mg tablet 100 mg PO DAILY #90 tabs 06/30 rosuvastatin 10 mg tablet 10 mg PO DAILY #90 tabs 03/06 08/30 semaglutide 0.25 mg or 0.5 mg (2 0.5 mg (0.736 mL) sub cut QWEEK #3 03/16/25 mg/3 mL) subcutaneous pen injector mL (Ozempic) amoxicillin 875 mg-potassium 1 tab PO BID #14 tabs clavulanate 125 mg tablet Allergies Allergy/AdvReac Type Severity Reaction Status Date / Time hydrocodone Allergy Mild Itching Verified 05/21/25 12:58 doxycycline AdvReac Severe Nausea Verified 05/21/25 12:58 Review of Systems Status of ROS: Reports: 10 or more systems reviewed and unremarkable except as noted in History and below PFSH [facility] Medical History Fatigue ?R53.83 - Other fatigue (ICD-10) Excessive daytime sleepiness ?G47.19 - Other hypersomnia (ICD-10) Psoriasis ?L40.9 - Psoriasis, unspecified (ICD-10) Staph infection ?B95.8 - Unspecified staphylococcus as the cause of diseases classified elsewhere (ICD-10) Hypercholesteremia ?E78.00 - Pure hypercholesterolemia, unspecified (ICD-10) High risk medication use ?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-10) Uveitis of left eye ?H20.9 - Unspecified iridocyclitis (ICD-10) Urinary incontinence ?R32 - Unspecified urinary incontinence (ICD-10) Tinea versicolor ?B36.0 - Pityriasis versicolor (ICD-10) Myalgia and myositis Morbid obesity ?E66.01 - Morbid (severe) obesity due to excess calories (ICD-10) Migraine headache ?G43.909 - Migraine, unspecified, not intractable, without status migrainosus (ICD-10) Hypertension ?I10 - Essential (primary) hypertension (ICD-10) History of gestational diabetes mellitus (GDM) ?Z86.32 - Personal history of gestational diabetes (ICD-10) Hidradenitis suppurativa ?L73.2 - Hidradenitis suppurativa (ICD-10) External hemorrhoids ?K64.4 - Residual hemorrhoidal skin tags (ICD-10) Encounter for annual physical exam ?Z00.00 - Encounter for general adult medical examination without abnormal findings (ICD-10) Difficulty sleeping ?G47.9 - Sleep disorder, unspecified (ICD-10) Dermatitis ?L30.9 - Dermatitis, unspecified (ICD-10) Depression ?F32.A - Depression, unspecified (ICD-10) Controlled type 2 diabetes mellitus ?E11.9 - Type 2 diabetes mellitus without complications (ICD-10) Amenorrhea ?N91.2 - Amenorrhea, unspecified (ICD-10) Surgical History Status post hemorrhoidectomy (2013) ?Z98.890 - Other specified postprocedural states (ICD-10) ?Z87.19 - Personal history of other diseases of the digestive system (ICD-10) Status post endometrial ablation (09/29/14) ?Z98.890 - Other specified postprocedural states (ICD-10) Status post dilation and curettage ?Z98.890 - Other specified postprocedural states (ICD-10) Family History Grandmother Diabetes Breast cancer Grandfather Heart disease Stroke Father Heart disease Social History Narrative: Lifelong nonsmoker. Drinks less than one alcoholic drink per week. 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 current living situation?: I presently have a place to live Problems where you live: no known problems In the past 12 months, utilities in danger of being shut off: no In past 12 months, lack of transportation kept you from medical appts, meetings, work, or getting things needed for daily living: no In the past 12 mos, have been you worried that your food would run out before you had money to buy more?: never true In the past 12 mos, the food you bought just didn't last and you didn't have money to buy more?: never true Highest level of school completed/degree received: some college, no degree Physical activity type: none Smoking Status: Never smoker Do you use any of these nicotine containing products: None Second hand tobacco smoke exposure: Yes (father smoked) How often do you have a drink containing alcohol: 2-4 times a month Alcohol type details: ilia How many standard drinks containing alcohol do you have on a typical day: 1 or 2 How often do you have six or more drinks on one occasion: Never AUDIT-C Alcohol total score: 2 Non-prescribed substance use: denies use Caffeine: Yes (pop) Are you now , , , , never or living with a partner: Social isolation score (0-1 are the most socially isolated patients): 1 How often does anyone, including family, friends and others, physically hurt you : never How often does anyone, including family, friends and others, insult or talk down to you: never How often does anyone, including family, friends and others, threaten you with harm: never How often does anyone, including family, friends and others, scream or curse at you: never Gender Identity: female Are you currently sexually active: Yes Are you using contraception or practicing any form of control: No service: No Exam Narrative: Exam Narrative: Const: Well-nourished, Well-developed, in mild distress Eyes: PERRL, no conjunctival injection, and symmetrical lids HENT: Atraumatic external nose and ears. Moist mucous membranes. Neck: Symmetric, trachea midline, No thyromegaly. CVS: RRR, No murmurs or gallops. Peripheral pulses 2+ and equal in all extremities RESP: Unlabored respiratory effort. Clear to auscultation bilaterally. GI: Nontender/Nondistended, No rebound or guarding. MSK: Diffuse swelling of right thumb with some erythema noted throat thumb that is not as far as the previous sharpie marker. Does have mild pain to the volar aspect with passive flexion of the thumb. Mild pain to palpation of the volar aspect of the thumb. No signs of erythema going up the arm. Skin: Warm, Dry. No rashes or lesions. Neuro: Normal Muscle tone, No focal neurological deficits. Psych: Awake, Alert, & Oriented x3. Appropriate mood and affect. Const: Vital Signs, click to edit/add: Vital Signs - 24 hr 05/21/25 12:54 05/21/25 14:51 Temperature 97.2 F L 97.3 F L Pulse Rate [Pulse Oximeter] 100 76 Respiratory Rate 20 18 Blood Pressure [Le ft Forearm] 161/83 H 146/92 H Pulse Oximetry 98 99 Oxygen Delivery Me thod Room Air Room Air Course Vital Signs Vital signs: Initial Vital Signs Temperature 97.2 F L 05/21/25 12:54 Temperature Source Temporal Artery Scan 05/21/25 12:54 Pulse Rate 100 05/21/25 12:54 Respiratory Rate 20 05/21/25 12:54 Blood Pressure 161/83 H 05/21/25 12:54 Blood Pressure Mean 109 H 05/21/25 12:54 Pulse Oximetry 98 05/21/25 12:54 Oxygen Delivery Method Room Air 05/21/25 12:54 Vital Signs Temperature 97.2 F L 05/21/25 12:54 Pulse Rate 100 05/21/25 12:54 Respiratory Rate 20 05/21/25 12:54 Blood Pressure 161/83 H 05/21/25 12:54 Pulse Oximetry 98 05/21/25 12:54 Oxygen Delivery Method Room Air 05/21/25 12:54 Temperature 97.3 F L 05/21/25 14:51 Pulse Rate 76 05/21/25 14:51 Respiratory Rate 18 05/21/25 14:51 Blood Pressure 146/92 H 05/21/25 14:51 Pulse Oximetry 99 05/21/25 14:51 Oxygen Delivery Method Room Air 05/21/25 14:51 Medications Administered Medications: Discontinued Medications Generic Name Dose Route Start Last Admin Trade Name Freq PRN Reason Stop Dose Admin Piperacillin Sod/Tazobactam 100 mls @ 200 mls/hr 05/21/25 14:00 05/21/25 14:47 Sod 4.5 gm/ Sodium Chloride IVPB 05/21/25 14:29 200 mls/hr ONCE ONE Administration Rabies Vaccine 2.5 unit 05/21/25 14:20 05/21/25 14:44 Rabies Vaccine (Rabavert) 2.5 Unit IM 05/21/25 14:21 2.5 unit .ONCE ONE Administration Medical Decision Making MDM Narrative Medical decision making narrative: Patient is a 49-year-old female presenting to the emergency department for thumb pain. My initial concern is for flexor tenosynovitis. There is also some co ncern for septic joint considering were the larger but it is. Will do x-ray. Will also start her on antibiotics. Pharmacy recommended Zosyn instead of vancomycin and ampicillin. Will give her her next rabies vaccine as she is due for it today. Will consult Orthopedics. X-ray reviewed by myself and the radiologist showed no acute concerning abnormalities. Orthopedics did come and evaluate the patient. They recommend basic lab work along with an ESR and CRP. Also recommend admitting to hospitalist service. They do stated her pain becomes so severe that she requires narcotics they will re-evaluate more emergently. Patient is immunosuppressed on methotrexate for her psoriasis and intermittent episodes of anterior uveitis. I spoke to the hospitalist service who accepted her for a l esion Lab Data Labs: Lab Results 05/21/25 Range/Units 14:35 WBC 7.28 (4.50-11.00) K/uL RBC 4.17 (4.00-5.20) m/uL Hgb 13.5 (12.0-16.0) gm/dL Hct 39.3 (33.0-51.0) % MCV 94 (80-100) fL MCH 32 (26-34) pg MCHC 34 (32-36) gm/dL RDW Coeff of Claudette 11.7 (11.5-15.5) % Plt Count 285 (140-440) K/uL Neut % (Auto) 71.0 (42.0-72.0) % Lymph % (Auto) 21.7 (20-44) % [place] % (Auto) 5.4 (0.0-11.0) % Eos % (Auto) 1.4 (0.0-7.0) % Baso % (Auto) 0.4 (0.0-3.0) % Neut # (Auto) 5.17 (1.7-7.0) K/uL Lymph # (Auto) 1.58 (0.90-2.90) K/uL [place] # (Auto) 0.40 (0.00-0.90) K/UL Eos # (Auto) 0.10 (0.00-0.50) K/uL Baso # (Auto) 0.03 (0.00-0.30) K/uL Abs Immat Gran (auto) 0.01 (0.00-0.30) K/uL Imm/Tot Granulo (auto) 0.1 % Sodium 134 L (135-149) mmol/L Potassium 3.7 (3.6-5.1) mmol/L Chloride 99 (96-114) mmol/L Carbon Dioxide 30 (20-32) mmol/L Anion Gap 5 L (7-15) mEq/L BUN 14 (5-24) mg/dL Creatinine 0.7 (0.5-1.5) mg/dL Estimated Creat Clear 93.01 Estimated GFR 107 ml/min Glucose 124 H (60-115) mg/dL Calcium 9.4 (8.4-10.6) mg/dL C-Reactive Protein 1.7 H (0.5-1.0) mg/dL Imaging Data X-ray right thumb: Attestation: I have reviewed the pertinent imaging results. Radiologist's impression: No acute osseous abnormality. The joint spaces are preserved. No radiopaque foreign body. Dictated by Ford Gillespie MD @ 05/21/2025 1:44:01 PM Discharge Plan Discharge Clinical Impression: Flexor tenosynovitis of thumb Patient Disposition: Admitted As Inpatient Condition: Stable
[2025-05-21 15:44] LABS: Erythrocyte SedimentationRate* 12 mm/hr (2-20)
[2025-05-21 15:52] VITALS: BP 163/109; PULSE 79; RESP 18; TEMP 36.6; O2SAT 100; BMI 41.8
[2025-05-21 16:16] LABS: HCG Qualitative Serum* Negative (Negative)
--- NOTE | 2025-05-21 16:29 | PM.IMHP1 ---
Assessment and Plan Assessment and plan (1) Morbid obesity with BMI of 40.0-44.9, adult: Problem comment: -has an rx for ozempic but has yet to start therapy Status: Acute (2) Cat bite of right thumb with infection: Problem comment: -With concern for possible thumb purulent flexor tenosynovitis, and thumb IP joint intra-articular infection -empiric coverage for aerobic an anaerobic bacteria, including pasteurella multocida needed. Zosyn 3.375mg Q6H -ortho following for possible I/D, debridement as clinically necessary Status: Acute (3) Flexor tenosynovitis of thumb: Problem comment: as above in #1 Status: Acute (4) Immunosuppressed status: Problem comment: - on tofacitinib (Xeljanz) and Methotrexate for uveitis, psoriasis and Hidradenitis suppurativa Status: Acute (5) Psoriasis: Problem comment: -most head and scalp affected Status: Acute (6) Controlled type 2 diabetes mellitus: Problem comment: A1c 6.2 on 03/16/2025 Status: Acute (7) Sleep apnea: Status: Acute (8) Depression: Problem comment: sees psychiatry effexor, buspirone, vyvannse, hydroxyzine Status: Acute (9) Hypertension: Problem comment: - stable, continue home med (losartan) Status: Acute (10) Hypercholesteremia: Problem comment: -continue statin Status: Acute (11) High risk medication use: Problem comment: methotrexate, tofacitinib Status: Acute Hospitalist- H&P: HPI History of Present Illness Date Seen: 05/21/25 Chief complaint: Cat bite R hand last week Narrative: ADMISSION HISTORY AND PHYSICAL - HOSPITALIST Chief Complaint: right thumb pain, swelling. s/p cat bite HPI: 49 y/o right-handed WF with a past medical history of being immunocompromised (tofacitinib/methotrexate for psoriasis/uveitis), morbidly obese, major depression, PTSD/ADHD, hypertension, hyperlipidemia, type 2 diabetes who presents for the 2nd time after a cat bite that occurred on 05/17/2025, 5 days prior to admission. The cat bit her on her right thumb sinking multiple teeth into both the dorsal and volar aspects of her right thumb. She was seen and evaluated at in our emergency room on 05/18/2025 and started on Augmentin. She has kept the wounds clean and dry. While the wounds themselves seem to be healing the swelling and pain along her right thumb continued to increase. No fevers, chills, vomiting, headache or rigors reported. She comes in ambulatory for further evaluation in our emergency room ER COURSE: films, labs, ortho consult. started IV antibiotics. CODE STATUS: FULL CODE PCP: Luis Ambriz M.D. EMERGENCY CONTACT PLAN: Gabe Sr Rel To Pat Cell I've updated the PFSH, medications and allergies in the Expanse tabs. INVESTIGATIONS: LABS/MICRO/ECG/IMAGING Labs and xray reviewed. CBC is unremarkable. Chemistries are unremarkable save for a very mild hyponatremia at 134. Glucose is 124. CRP is minimally elevated at 1.7. REVIEW OF SYSTEMS: 12-point ROS completed with patient and negative unless otherwise stated in HPI or below. PHYSICAL EXAM: CONSTITUTIONAL: Conversive, good historian. A/O. Knows setting and context. GENERAL: Well-developed and above ideal body weight, in no respiratory distress. VITAL SIGNS: see record. HEENT: Sclerae are anicteric. No petechiae. CARDIAC: rhythm is regular. There is no S3 or rub. No harsh murmurs. Extremities show trace edema with symmetrical pulses. PULM: good air entry with no wheeze. NEURO: Speech is fluent. A brief neurologic exam is negative. MSK right thumb: 2 puncture wounds noted volar and dorsal in location. No draining. Several superficial abrasions noted as well. Her thumb is generally tender throughout all ranges of motion. She has some restricted joint flexion. There is no obvious streaking or purulence collection. Wrist and forearm here normal. The erythema is mild to moderate, no obvious necrosis or circulation compromise. PSYCHIATRIC: Euthymic. ADMIT TO MEDSURG: FLOOR CARE DVT: Ambulation and SCDs. GI: PO intake Time spent: Today I spent 75 minutes seeing the patient, discussing the patient with ER staff, reviewing Expanse and EPIC notes/diagnostics, discussing the care plan with our care time that includes social work, PT/OT, pharmacy, RT, assisted and documenting my impressions and plan in the medical record. MEDICAL NECESSITY FOR HOSPITALIZATION Anticipated midnights in the hospital: 2-3 Admitting diagnosis: Infectious tenosynovitis secondary to cat bite/scratch Risk of morbidity and mortality: Moderate Acuity is characterized as high and reflected in: Given that she is a type 2 diabetic, immunocompromised and has failed outpatient antibiotic puts her at higher risk for prolonged IV antibiotics and or surgical intervention. This patient will require hospital services as outlined in the assessment and plan in order to stabilize and be safely discharged to a lower level of care. Because of the risk and acuity as described above, this patient cannot be managed at a lower level of care. LENGTH OF STAY: 2 IP ? Anticipated LOS>2 midnights due to acuity of clinical presentation requiring inpatient level of care Medical Decision Making Medical Decision Making Has patient completed a Health Care Directive: No [facility] Medical History (Updated 05/21/25 @ 16:42 by Cierra Neves MD) Sleep apnea ?G47.30 - Sleep apnea, unspecified (ICD-10) Immunosuppressed status ?D84.9 - Immunodeficiency, unspecified (ICD-10) Morbid obesity with BMI of 40.0-44.9, adult ?E66.01 - Morbid (severe) obesity due to excess calories (ICD-10) ?Z68.41 - Body mass index [BMI] 40.0-44.9, adult (ICD-10) Elevated LFTs ?R79.89 - Other specified abnormal findings of blood chemistry (ICD-10) Fatigue ?R53.83 - Other fatigue (ICD-10) Psoriasis ?L40.9 - Psoriasis, unspecified (ICD-10) Hypercholesteremia ?E78.00 - Pure hypercholesterolemia, unspecified (ICD-10) High risk medication use ?Z79.899 - Other care home (current) drug therapy (ICD-10) Uveitis of left eye ?H20.9 - Unspecified iridocyclitis (ICD-10) Migraine headache ?G43.909 - Migraine, unspecified, not intractable, without status migrainosus (ICD-10) Hypertension ?I10 - Essential (primary) hypertension (ICD-10) History of gestational diabetes mellitus (GDM) ?Z86.32 - Personal history of gestational diabetes (ICD-10) Hidradenitis suppurativa ?L73.2 - Hidradenitis suppurativa (ICD-10) External hemorrhoids ?K64.4 - Residual hemorrhoidal skin tags (ICD-10) Depression ?F32.A - Depression, unspecified (ICD-10) Controlled type 2 diabetes mellitus ?E11.9 - Type 2 diabetes mellitus without complications (ICD-10) Surgical History (Updated 05/21/25 @ 16:42 by Cierra Neves MD) Status post cholecystectomy ?Z90.49 - Acquired absence of other specified parts of digestive tract (ICD-10) Status post hemorrhoidectomy (2013) ?Z98.890 - Other specified postprocedural states (ICD-10) ?Z87.19 - Personal history of other diseases of the digestive system (ICD-10) Status post endometrial ablation (09/29/14) ?Z98.890 - Other specified postprocedural states (ICD-10) Status post dilation and curettage ?Z98.890 - Other specified postprocedural states (ICD-10) Family History Grandmother Diabetes Breast cancer Grandfather Heart disease Stroke Father Heart disease Social History Narrative: Lifelong nonsmoker. Drinks less than one alcoholic drink per week. 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 current living situation?: I presently have a place to live Problems where you live: no known problems In the past 12 months, utilities in danger of being shut off: no In past 12 months, lack of transportation kept you from medical appts, meetings, work, or getting things needed for daily living: no In the past 12 mos, have been you worried that your food would run out before you had money to buy more?: never true In the past 12 mos, the food you bought just didn't last and you didn't have money to buy more?: never true Highest level of school completed/degree received: some college, no degree Physical activity type: none Smoking Status: Never smoker Do you use any of these nicotine containing products: None Second hand tobacco smoke exposure: Yes How often do you have a drink containing alcohol: 2-4 times a month Alcohol type details: ilia How many standard drinks containing alcohol do you have on a typical day: 1 or 2 How often do you have six or more drinks on one occasion: Monthly AUDIT-C Alcohol total score: 4 Non-prescribed substance use: denies use Caffeine: Yes Are you now , , , , never or living with a partner: Social isolation score (0-1 are the most socially isolated patients): 1 How often does anyone, including family, friends and others, physically hurt you: never How often does anyone, including family, friends and others, insult or talk down to you: never How often does anyone, including family, friends and others, threaten you with harm: never How often does anyone, including family, friends and others, scream or curse at you: never Gender Identity: female Are you currently sexually active: Yes Are you using contraception or practicing any form of control: No service: No Meds Home Medications and Allergies Home Medications ?Medication ?Instructions ?Recorded ?Confirmed ?Type folic acid 1 mg tablet 1 mg PO DAILY 04/06/22 05/21/25 History methotrexate sodium 2.5 mg tablet 12.5 mg PO .1 x week 07/20/23 05/21/25 History lisdexamfetamine 30 mg capsule 30 mg PO DAILY 12/13/23 05/21/25 History blood sugar diagnostic (Accu-Chek #100 ea 01/24/24 05/18/25 Rx Guide test strips) lancets (Accu-Chek Softclix #200 ea 01/24/24 05/18/25 Rx Lancets) cholecalciferol (vitamin D3) 50 50 mcg PO QDAY #90 caps 05/16/24 05/21/25 Rx mcg (2,000 unit) capsule buspirone 15 mg tablet 15 mg PO BID 03/16/25 05/21/25 History diclofenac sodium 1 % topical gel 2 g topical QID PRN joint pain 03/16/25 05/21/25 History hydrocortisone 2.5 % topical cream 1 applic topical BID PRN 03/16/25 05/21/25 History hydroxyzine HCl 25 mg tablet 12.5 - 25 mg PO Q8H PRN insomnia 03/16/25 05/21/25 History losartan 100 mg tablet 100 mg PO DAILY #90 tabs 03/16/25 05/21/25 Rx rosuvastatin 10 mg tablet 10 mg PO DAILY #90 tabs 03/16/25 05/21/25 Rx semaglutide 0.25 mg or 0.5 mg (2 0.5 mg (0.736 mL) subcut QWEEK #3 03/16/25 05/21/25 Rx mg/3 mL) subcutaneous pen injector mL (Ozempic) tofacitinib 11 mg tablet,extended 11 mg PO DAILY 03/16/25 05/21/25 History release 24 hr (Xeljanz XR) venlafaxine 150 mg 150 mg PO DAILY 03/16/25 05/21/25 History capsule,extended release 24 hr amoxicillin 875 mg-potassium 1 tab PO BID #14 tabs 05/18/25 05/21/25 Rx clavulanate 125 mg tablet clotrimazole 1 % topical cream 1 applic topical BID PRN 05/21/25 05/21/25 History Allergies Allergy/AdvReac Type Severity Reaction Status Date / Time hydrocodone Allergy Mild Itching Verified 05/21/25 12:58 doxycycline AdvReac Severe Nausea Verified 05/21/25 12:58 Exam Const: Vital Signs, click to edit/add: Vital Signs - 24 hr 05/21/25 12:54 05/21/25 14:51 05/21/25 15:52 Temperature 97.2 F L 97.3 F L 98 F Pulse Rate [Pulse Oximeter] 100 76 79 Respiratory Rate 20 18 18 Blood Pressure [Le ft Forearm] 161/83 H 146/92 H Blood Pressure [Ri ght Arm] 163/109 H Pulse Oximetry 98 99 100 Oxygen Delivery Me thod Room Air Room Air Room Air Hospitalist - H&P: Result Labs Labs: Short CBC 05/21/25 Range/Units 14:35 WBC 7.28 (4.50-11.00) K/uL Hgb 13.5 (12.0-16.0) gm/dL Hct 39.3 (33.0-51.0) % Plt Count 285 (140-440) K/uL BMP 05/21/25 14:35 Sodium 134 L Potassium 3.7 Chloride 99 Carbon Dioxide 30 BUN 14 Creatinine 0.7 Glucose 124 H Calcium 9.4
[2025-05-21 17:50] VITALS: PULSE 78; RESP 20; TEMP 36.7; O2SAT 99
[2025-05-21 19:00] VITALS: BP 148/92; PULSE 77; RESP 18; O2SAT 100
--- NOTE | 2025-05-21 19:09 | PC.NURSE ---
End of shift: Pt. is AOX4. Pt. able to state and express needs. Pt. pleasant. Family bedside. Pt. reports dull pain; declined pain meds when offered PRN. Pt. R thumb swollen with four punctures.
[2025-05-21] MEDS: ACETAMINOPHEN 325 MG TABLET 650 MG PO (19:36)
[2025-05-21] MEDS: BUSPIRONE 10 MG TABLET 15 MG PO (20:44)
[2025-05-21] MEDS: SODIUM CHLORIDE 0.9 % (FLUSH) 10 ML SYRINGE 5 ML IVF (20:45)
[2025-05-21] MEDS: PIPERACILLIN/TAZOBACTAM 3.375 GM in 0.9 % SODIUM CHLORIDE Mini-bag 100 ML IVPB (20:46)
[2025-05-21 23:00] VITALS: RESP 16; O2SAT 100
[2025-05-22] VITALS (9 sets, daily range): BP systolic 115–167; BP diastolic 74–108; PULSE 70–79; RESP 12–18; TEMP 36.2–37.1; O2SAT 97–99
[2025-05-22] MEDS: PIPERACILLIN/TAZOBACTAM 3.375 GM in 0.9 % SODIUM CHLORIDE Mini-bag 100 ML IVPB ×3 (02:35→20:28)
[2025-05-22] MEDS: ACETAMINOPHEN 325 MG TABLET 650 MG PO ×5 (02:36→21:32)
[2025-05-22 06:34] LABS: Hematocrit* 37.4 % (33.0-51.0); Hemoglobin* 12.9 gm/dL (12.0-16.0); Mean Corpuscular HGB Conc 35 gm/dL (32-36); Mean Corpuscular Hemoglobin 32 pg (26-34); Mean Corpuscular Volume 94 fL (80-100); Red Blood Count* 4.00 m/uL (4.00-5.20); White Blood Count* 4.88 K/uL (4.50-11.00)
[2025-05-22 06:39] LABS: Slide Review Reflex No
[2025-05-22 06:45] LABS: Chloride* 102 mmol/L (96-114); Potassium* 3.6 mmol/L (3.6-5.1); Sodium* 132 mmol/L (135-149)
[2025-05-22 06:49] LABS: Anion Gap 5 mEq/L (7-15); Blood Urea Nitrogen* 12 mg/dL (5-24); Calcium* 8.7 mg/dL (8.4-10.6); Carbon Dioxide* 25 mmol/L (20-32); Creatinine* 0.7 mg/dL (0.5-1.5); Est. Creatinine Clearance* 93.01; Estimated Glomerular Filt Rate 107 ml/min; Glucose* 137 mg/dL (60-115)
[2025-05-22 08:00] LABS: HCG Quantitative* < 2.39 mIU/mL
[2025-05-22 08:08] LABS: Ur HCG Qualitative* Negative (Negative)
[2025-05-22] MEDS: SODIUM CHLORIDE 0.9 % (FLUSH) 10 ML SYRINGE 5 ML IVF ×3 (08:30→22:53)
[2025-05-22] MEDS: LOSARTAN POTASSIUM 50 MG TABLET 100 MG PO (08:30)
[2025-05-22] MEDS: VENLAFAXINE ER 75 MG CAPSULE 150 MG PO (08:31)
[2025-05-22] MEDS: ROSUVASTATIN CALCIUM 10 MG TABLET PO (08:31)
[2025-05-22] MEDS: FOLIC ACID 1 MG TABLET PO (08:31)
[2025-05-22] MEDS: TOFACITINIB 11 MG PO (08:35)
--- NOTE | 2025-05-22 08:49 | P.ORPN_ITS ---
Subjective Subjective Date Seen: 05/22/25 Principal diagnosis: Right IP joint, concern for septic joint; possible flexor tenosynovitis Interval history: Patient reports no changes symptoms. Still complaining of pain largely involving the thumb IP joint and volar aspect of the thumb. She believes the thumb is more swollen and lumpy. She has a very difficult time moving the thumb without pain. She notes continued is not increasing redness to the thumb IP joint, yet the previous redness more base of the thumb has improved. Notes pain involving the 1st webspace. Denying fevers or chills. Denying body aches. States that she feels thirsty since being NPO as of midnight. Ortho Exam Narrative Exam Narrative: General: Well-developed, well-nourished, A&Ox 3, no apparent acute distress. Pulmonary: Breathing pattern regular, even, without apparent distress or audible wheeze present. Right hand: Generalized moderate swelling involving the thumb, particularly involving the thumb IP joint dorsal and volar. Erythema encompassing the thumb IP joint dorsal ulnar and volar ulnar. Small region of erythema more radial MCP region, and radial distal proximal phalanx 2 separate wounds seen over the dorsum thumb IP joint, and a very small pinprick type wound over the volar thumb IP joint region. These wounds and surrounding tissue are very tender. There is no drainage from the wounds. Gentle passive motion of the thumb IP joint produces pain, especially when forcing extension. Pain is along the thumb IP joint and volar thumb, including proximal phalanx. No pain involving the thenar, or remainder of palm No pain MCP or CMC joint Mild discomfort to palpation through the forearm volar/radial Moderate pain distal phalanx volar 2+ radial pulse, pink warm digits with brisk cap refill; intact dermatomes and myotomes distally including the radial, ulnar, and median nerve distributions Const Vital Signs, click to edit/add: Vital Signs - 24 hr 05/21/25 12:54 05/21/25 14:51 05/21/25 15:52 Temperature 97.2 F L 97.3 F L 98 F Pulse Rate [Pulse Oximeter] 100 76 79 Respiratory Rate 20 18 18 Blood Pressure [Left Forearm] 161/83 H 146/92 H Blood Pressure [Right Arm] 163/109 H Pulse Oximetry 98 99 100 Oxygen Delivery Method Room Air Room Air Room Air 05/21/25 17:50 05/21/25 19:00 05/21/25 23:00 Temperature 98.1 F Pulse Rate [Pulse Oximeter] 78 77 Respiratory Rate 20 18 16 Blood Pressure [Left Forearm] Blood Pressure [Right Arm] 148/92 H Pulse Oximetry 99 100 100 Oxygen Delivery Method Room Air Room Air Room Air 05/22/25 02:45 05/22/25 07:43 05/22/25 07:43 Temperature 98.8 F Pulse Rate [Pulse Oximeter] 79 78 78 Respiratory Rate 18 12 12 Blood Pressure [Left Forearm] Blood Pressure [Right Arm] 139/74 141/75 H Pulse Oximetry 99 98 Oxygen Delivery Method Room Air Room Air Assessment and Plan Assessment and plan (1) Cat bite of right thumb with infection: Problem details: -With concern for possible thumb purulent flexor tenosynovitis, and thumb IP joint intra-articular infection -empiric coverage for aerobic an anaerobic bacteria, including pasteurella multocida needed. Zosyn 3.375mg Q6H -ortho following for possible I/D, debridement as clinically necessary Status: Acute (2) Flexor tenosynovitis of thumb: Problem details: as above in #1 Status: Acute (3) Immunosuppressed status: Problem details: - on tofacitinib (Xeljanz) and Methotrexate for uveitis, psoriasis and Hidra denitis suppurativa Status: Acute (4) Psoriasis: Problem details: -most head and scalp affected Status: Acute (5) Controlled type 2 diabetes mellitus: Problem details: A1c 6.2 on 03/16/2025 Status: Acute (6) Sleep apnea: Status: Acute (7) Depression: Problem details: sees psychiatry effexor, buspirone, vyvannse, hydroxyzine Status: Acute (8) Hypertension: Problem details: - stable, continue home med (losartan) Status: Acute (9) Hypercholesteremia: Problem details: -continue statin Status: Acute (10) High risk medication use: Problem details: methotrexate, tofacitinib Status: Acute (11) Morbid obesity with BMI of 40.0-44.9, adult: Problem details: -has a rx for ozempic but has yet to start therapy Status: Acute Plan We had a thorough discussion regarding pathology. Symptoms and signs have predominantly remain the same. However, I also appreciate slightly more erythema involving the thumb IP joint. At this point, the IP joint is of greater concern for me verses pyogenic flexor tenosynovitis; the wounds both dorsal and volar IP joint I believe have communicated with the intra-articular space, thus concern for septic joint is present. Patient is also in an immune compromise state due to medications, as well as type 2 diabetes. Patient is also obese. Overall, no great improvement with IV antibiotics. I believe surgery will be the next step for thumb IP joint I and D, and possible I&D of the thumb flexor sheath. Dr. Neves, who was on-call for Orthopedics, will be in today to assess patient and determine if surgery is the next step. In the meantime, patient will remain NPO. Continue IV antibiotics. At this point, the OR does not have availability until likely this afternoon 05/22/2025. Of note, consideration was made for thumb IP joint aspiration. I do not believe patient will tolerate this procedure nor will it provide great guidance since clinical concern is still for septic thumb IP joint.
[2025-05-22] MEDS: BUSPIRONE 10 MG TABLET 15 MG PO ×2 (09:01→20:29)
--- NOTE | 2025-05-22 14:04 | SUR.OPER ---
PATIENT QUESTIONS ANSWERED SATISFACTORILY PREOPERATIVELY. PATIENT BROUGHT TO OR #3 PER MED/SURG BED. Patient positioned supine on OR #3 bed. The perioperative team supported arms bilaterally on arm boards. Final approval of positioning by surgeon.
--- NOTE | 2025-05-22 14:28 | P.ORPRC_ITS ---
Procedure Note Date of procedure: 05/22/25 Procedure: PREOPERATIVE DIAGNOSIS: 1. Right thumb infection POSTOPERATIVE DIAGNOSIS: 1. Right thumb infection PROCEDURE: 1. Right thumb irrigation and debridement SURGEON: Estevan Neves MD. HOME PLANNING CONSULTANT SALESPERSON: Qi Gaytan - Of note, an aquatics assistant department head was critical for this case to aid in patient positioning, tissue retraction, finger manipulation/positioning, and wound closure. ANESTHESIA: Local with monitored anesthesia care ESTIMATED BLOOD LOSS: 1 mL COMPLICATIONS: None SPECIMENS: Swabs of deep subcutaneous dorsal thumb and subcutaneous volar thumb sent for Gram stain, anaerobic/aerobic cultures. INDICATIONS: The patient is a pleasant 49-year-old female who sustained multiple cat bites to her right thumb 5 days ago. Four days ago, she was started on oral antibiotics for suspected infection. She experienced some initial improvement and decreased erythema but continued to experience redness, pain, and swelling near the IP joint of the thumb. Due to persistent symptoms, she was admitted 1 day ago for IV antibiotics however, she did not experience significant improvement after 24 hours of IV antibiotics. Preoperative physical exam revealed no signs consistent with flexor tenosynovitis (no fusiform swelling, no significant tenderness of the flexor tendon sheath, no significant discomfort with extension of the thumb IP joint, and no flexed posturing of the thumb). Furthermore, there were no obvious fluid collections. However, she continued to have pain and swelling near the thumb IP joint concerning for possible joint involvement. Recommendation was subsequently made for surgical intervention consisting of right thumb irrigation and debridement. Prior to surgery, risks and benefits of procedure were discussed with patient, all questions were answered, and informed consent was obtained. FINDINGS: Small subcutaneous fluid collection dorsal ulnar aspect of thumb superficial to the IP joint capsule. No obvious involvement of the IP joint. No obvious fluid collections on volar aspect of the thumb. DESCRIPTION OF PROCEDURE: Following a thorough discussion of risks, benefits, and alternatives consent was obtained and the operative was marked. A digital nerve block of the right thumb was performed using combination of 1% plain lidocaine and 0.5% plain bupivacaine. The patient was then brought to the operating room and placed supine on the operating table. Monitored anesthesia care was provided. The right upper extremity prepped and draped usual sterile fashion. Surgical time-out was performed confirming patient identity, surgical site, surgical procedure. A finger tourniquet was placed at the base of the right thumb. A longitudinal incision measuring approximately 2-3 cm was then made on the dorsal ulnar aspect of the thumb centered over the puncture wound proximal to the IP joint. Incision was carried through subcutaneous tissues. Deep to subcutaneous tissues, a small amount of purulent appearing fluid was encountered. This fluid was swabbed and sent for Gram stain and anaerobic/aerobic cultures. This area was then thoroughly irrigated with normal saline. Interval ulnar to the thumb extensor tendon was then developed. The joint capsule was incised and no fluid was noted to emanate from the capsule. Joint was then irrigated with copious amounts of normal saline. Attention was then directed to the puncture wound on the volar ulnar aspect of the thumb near the IP joint flexion crease. A chevron-shaped incision was made centered over this puncture site. Full-thickness skin flap was developed and retracted radially. Dissection was carried through the deep subcutaneous tissues and flexor tendon sheath was visualized. There was no obvious fluid collections in the subcutaneous tissues or near the flexor tendon sheath. Swabs of the deep subcutaneous soft tissues were obtained and sent for Gram stain and anaerobic/aerobic cultures. The surgical wound was then irrigated with copious amounts of normal saline. The thumb tourniquet was then removed. Hemostasis was achieved with bipolar electrocautery. Skin incisions were closed with 4-0 nylon simple interrupted sutures and sterile dressings were applied. Patient was awoken from anesthesia and transferred the PACU in stable condition. PLAN: 1. Ice and elevation right thumb to help control pain and swelling. 2. Acetaminophen as needed for pain control. Oxycodone for breakthrough pain. 3. Continue IV antibiotics per hospitalist recommendations. 4. Follow cultures and adjust antibiotics as needed. 5. Advance activities as tolerated.
[2025-05-22] MEDS: BACITRACIN OINTMENT BULK TUBE 1 APPLIC TOPICAL (14:31)
--- NOTE | 2025-05-22 14:46 | PM.IMPN1 ---
Assessment and Plan Assessment and plan (1) Cat bite of right thumb with infection: Problem comment: -With concern for possible thumb purulent flexor tenosynovitis, and thumb IP joint intra-articular infection -empiric coverage for aerobic an anaerobic bacteria, including pasteurella multocida needed. Zosyn 3.375mg Q6H -ortho following for possible I/D, debridement as clinically necessary 05/22/2025: I spoke with Orthopedic surgery team who will be bringing her to the OR today. Continue with broad-spectrum antibiotics. Await intraoperative cultures. Status: Acute (2) Flexor tenosynovitis of thumb: Problem comment: as above in #1 Status: Acute (3) Immunosuppressed status: Problem comment: - on tofacitinib (Xeljanz) and Methotrexate for uveitis, psoriasis and Hidradenitis suppurativa Status: Acute (4) Psoriasis: Problem comment: -most head and scalp affected Status: Acute (5) Controlled type 2 diabetes mellitus: Problem comment: A1c 6.2 on 03/16/2025 Status: Acute (6) Sleep apnea: Status: Acute (7) Depression: Problem comment: sees psychiatry effexor, buspirone, vyvannse, hydroxyzine Status: Acute (8) Hypertension: Problem comment: - stable, continue home med (losartan) Status: Acute (9) Hypercholesteremia: Problem comment: -continue statin Status: Acute (10) High risk medication use: Problem comment: methotrexate, tofacitinib Status: Acute (11) Morbid obesity with BMI of 40.0-44.9, adult: Problem comment: -has a rx for ozempic but has yet to start therapy Status: Acute Plan 1. Reviewed impression, plans, recommendations with patient 2. Continue with current plan of care 3. Patient agreeable to above stated plans and recommendations 4. Answered patient's questions are satisfaction. Total Time Spent Total Time Spent: 25 minutes Subjective Date Seen: 05/22/25 Interval history: Admission history of present illness: ?49 y/o right-handed WF with a past medical history of being immunocompromised (tofacitinib/methotrexate for psoriasis/uveitis), morbidly obese, major depression, PTSD/ADHD, hypertension, hyperlipidemia, type 2 diabetes who presents for the 2nd time after a cat bite that occurred on 05/17/2025, 5 days prior to admission. The cat bit her on her right thumb sinking multiple teeth into both the dorsal and volar aspects of her right thumb. She was seen and evaluated at in our emergency room on 05/18/2025 and started on Augmentin. She has kept the wounds clean and dry. While the wounds themselves seem to be healing the swelling and pain along her right thumb continued to increase. No fevers, chills, vomiting, headache or rigors reported. She comes in ambulatory for further evaluation in our emergency room ?ER COURSE: films, labs, ortho consult. started IV antibiotics. ?CODE STATUS: FULL CODE? 05/22/2025: 49-year-old woman, right-handed. Does not feel her discomfort and inability to move her affected right thumb is any better or worse. Denies fevers, rigors, diaphoresis. Tolerating intervention efforts. NPO since midnight. Exam Narrative: Exam Narrative: Examine her in her hospital room. Appears comfortable. Right hand still swollen particularly they right thumb. Increased discomfort with movement of the thumb. Not extending beyond the wrist. Lungs clear to auscultation. Heart tones with regular rhythm. Abdomen with active bowel sounds, soft. Independent with transfer, station, gait. Has initiated rabies vaccination. She is up-to-date on her tetanus vaccination. Const: Vital Signs, click to edit/add: Vital Signs - 24 hr 05/21/25 14:51 05/21/25 15:52 05/21/25 17:50 Temperature 97.3 F L 98 F 98.1 F Pulse Rate [Pulse Oximeter] 76 79 78 Respiratory Rate 18 18 20 Blood Pressure [Le ft Arm] Blood Pressure [Le ft Forearm] 146/92 H Blood Pressure [Ri ght Arm] 163/109 H Pulse Oximetry 99 100 99 Oxygen Delivery Me thod Room Air Room Air Room Air 05/21/25 19:00 05/21/25 23:00 05/22/25 02:45 Temperature Pulse Rate [Pulse Oximeter] 77 79 Respiratory Rate 18 16 18 Blood Pressure [Le ft Arm] Blood Pressure [Le ft Forearm] Blood Pressure [Ri ght Arm] 148/92 H 139/74 Pulse Oximetry 100 100 99 Oxygen Delivery Me thod Room Air Room Air Room Air 05/22/25 07:43 05/22/25 07:43 05/22/25 11:00 Temperature 98.8 F 98.8 F Pulse Rate [Pulse Oximeter] 78 78 77 Respiratory Rate 12 12 14 Blood Pressure [Le ft Arm] 154/81 H Blood Pressure [Le ft Forearm] Blood Pressure [Ri ght Arm] 141/75 H Pulse Oximetry 98 98 Oxygen Delivery Me thod Room Air Room Air Labs Labs: Laboratory Results - last 24 hr 05/21/25 05/21/25 05/22/25 14:30 14:35 05:41 WBC 7.28 4.88 RBC 4.17 4.00 Hgb 13.5 12.9 Hct 39.3 37.4 MCV 94 94 MCH 32 32 MCHC 34 35 RDW Coeff of Claudette 11.7 Plt Count 285 266 Neut % (Auto) 71.0 Lymph % (Auto) 21.7 Mellette % (Auto) 5.4 Eos % (Auto) 1.4 Baso % (Auto) 0.4 Neut # (Auto) 5.17 Lymph # (Auto) 1.58 Mellette # (Auto) 0.40 Eos # (Auto) 0.10 Baso # (Auto) 0.03 Abs Immat Gran (auto) 0.01 Imm/Tot Granulo (auto) 0.1 ESR 12 Sodium 134 L 132 L Potassium 3.7 3.6 Chloride 99 102 Carbon Dioxide 30 25 Anion Gap 5 L 5 L BUN 14 12 Creatinine 0.7 0.7 Estimated Creat Clear 93.01 93.01 Estimated GFR 107 107 Glucose 124 H 137 H Calcium 9.4 8.7 C-Reactive Protein 1.7 H 1.3 H HCG, Qual Negative HCG, Quant Urine HCG, Qual 05/22/25 05/22/25 05:55 Unknown WBC RBC Hgb Hct MCV MCH MCHC RDW Coeff of Claudette Plt Count Neut % (Auto) Lymph % (Auto) Mellette % (Auto) Eos % (Auto) Baso % (Auto) Neut # (Auto) Lymph # (Auto) Mellette # (Auto) Eos # (Auto) Baso # (Auto) Abs Immat Gran (auto) Imm/Tot Granulo (auto) ESR Sodium Potassium Chloride Carbon Dioxide Anion Gap BUN Creatinine Estimated Creat Clear Estimated GFR Glucose Calcium C-Reactive Protein HCG, Qual HCG, Quant < 2.39 Urine HCG, Qual Negative
--- NOTE | 2025-05-22 20:24 | PC.NURSE ---
End of Shift: Patient pleasant and cooperative. Patient vitally stable, lungs clear, BS WNL, IV SL. Patient has rated zero pain and 6/10 pain after surgery. Before surgery patient was only taking tylenol, after surgery all pain meds have been in use. Patient urinating well, no BM. Patient is tolerating regular diet, but has only had small snacks. Patients right thumb dressing is C/D/I. Patient is independent in room.
[2025-05-23 02:35] VITALS: BP 140/81; PULSE 84; RESP 18; TEMP 36.9; O2SAT 96
[2025-05-23] MEDS: PIPERACILLIN/TAZOBACTAM 3.375 GM in 0.9 % SODIUM CHLORIDE Mini-bag 100 ML IVPB ×3 (02:40→14:35)
[2025-05-23] MEDS: ACETAMINOPHEN 325 MG TABLET 650 MG PO ×3 (02:41→15:35)
[2025-05-23] MEDS: SODIUM CHLORIDE 0.9 % (FLUSH) 10 ML SYRINGE 5 ML IVF ×3 (05:49→12:24)
--- NOTE | 2025-05-23 06:57 | PC.NURSE ---
Pt alert and oriented x3. Afebrile. Pt reports 2-7/10 pain in right thumb, pain managed with PRN medications. Right thumb dressing is CDI. Pt is up IND, voiding, and tolerating a regular diet.
[2025-05-23 07:00] VITALS: BP 133/71; PULSE 78; TEMP 36.8; O2SAT 95
[2025-05-23] MEDS: LOSARTAN POTASSIUM 50 MG TABLET 100 MG PO (09:15)
[2025-05-23] MEDS: ROSUVASTATIN CALCIUM 10 MG TABLET PO (09:15)
[2025-05-23] MEDS: VENLAFAXINE ER 75 MG CAPSULE 150 MG PO (09:16)
[2025-05-23] MEDS: BUSPIRONE 10 MG TABLET 15 MG PO (09:16)
[2025-05-23] MEDS: FOLIC ACID 1 MG TABLET PO (09:17)
[2025-05-23] MEDS: TOFACITINIB 11 MG PO (09:18)
--- NOTE | 2025-05-23 11:17 | PM.ORPN ---
Subjective Subjective Date Seen: 05/23/25 Principal diagnosis: POD 1 right thumb I&D Interval history: Patient reports doing well this morning, enjoying breakfast. Notes more pain after surgery last night requiring oxycodone for pain management, but this is improving. Digit feels very stiff. No acute events over night. Pain managed with scheduled and PRN medications, ice. Trying to wean from narcotics, which is also preferred by patient. DVT prophylaxis: SCDs, walking. Denies fevers, chills, aches, N/V, CP, SOB/FRIAS, or lightheadedness. Patient has a preference to be discharged by this evening 05/23/2025 if possible; she understands, and respects medical decision making if this is possible. Currently on Zosyn. Right thumb intraoperative cultures are preliminarily negative, Gram stain negative Ortho Exam Narrative Exam Narrative: General: Well-developed, well-nourished, A&Ox 3, no apparent acute distress. Pulmonary: Breathing pattern regular, even, without apparent distress or audible wheeze present. Right hand: Soft dressing covers the right thumb with tubigauze; no drainage Somewhat tight and swollen through the right thenar eminence but not painful; no erythema noted. Mildly tender palpation to the volar base of the thumb/MCP region and proximal phalanx region. The rest of the digit is not accessible due to bandage thus not assessed fully. No pain through the forearm, which is also not swollen. Unimpaired pronation and supination and without pain 2+ radial pulse, pink warm digits with brisk cap refill; intact dermatomes and myotomes distally including the radial, ulnar, and median nerve distributions Const Vital Signs, click to edit/add: Vital Signs - 24 hr 05/22/25 14:45 05/22/25 15:00 05/22/25 15:00 Temperature 98.1 F Pulse Rate Pulse Rate [Pulse Oximeter] 76 75 Respiratory Rate 18 18 18 Blood Pressure Blood Pressure [Left Arm] 120/81 115/84 Pulse Oximetry 97 99 Oxygen Delivery Method Room Air Room Air 05/22/25 15:15 05/22/25 15:37 05/22/25 20:15 Temperature 97.7 F 97.2 F L 98.6 F Pulse Rate 76 70 Pulse Rate [Pulse Oximeter] 78 Respiratory Rate 18 18 18 Blood Pressure 124/88 167/108 H Blood Pressure [Left Arm] 143/75 H Pulse Oximetry 98 97 Oxygen Delivery Method Room Air Room Air Room Air 05/22/25 22:28 05/23/25 02:35 05/23/25 07:00 Temperature 98.6 F 98.5 F 98.3 F Pulse Rate Pulse Rate [Pulse Oximeter] 77 84 78 Respiratory Rate 18 18 Blood Pressure Blood Pressure [Left Arm] 159/78 H 140/81 H 133/71 Pulse Oximetry 97 96 95 Oxygen Delivery Method Room Air Room Air Room Air Assessment and Plan Assessment and plan (1) Cat bite of right thumb with infection: Problem details: -With concern for possible thumb purulent flexor tenosynovitis, and thumb IP joint intra-articular infection -empiric coverage for aerobic an anaerobic bacteria, including Pasteurella multocida needed. Zosyn 3.375mg Q6H -ortho following for possible I/D, debridement as clinically necessary 05/22/2025: I spoke with Orthopedic surgery team who will be bringing her to the OR today. Continue with broad-spectrum antibiotics. Await intraoperative cultures. Status: Acute (2) Flexor tenosynovitis of thumb: Problem details: as above in #1 Status: Acute (3) Immunosuppressed status: Problem details: - on tofacitinib (Xeljanz) and Methotrexate for uveitis, psoriasis and Hidradenitis suppurativa Status: Acute (4) Psoriasis: Problem details: -most head and scalp affected Status: Acute (5) Controlled type 2 diabetes mellitus: Problem details: A1c 6.2 on 03/16/2025 Status: Acute (6) Sleep apnea: Status: Acute (7) Depression: Problem details: sees psychiatry effexor, buspirone, vyvannse, hydroxyzine Status: Acute (8) Hypertension: Problem details: - stable, continue home med (losartan) Status: Acute (9) Hypercholesteremia: Problem details: -continue statin Status: Acute (10) High risk medication use: Problem details: methotrexate, tofacitinib Status: Acute (11) Morbid obesity with BMI of 40.0-44.9, adult: Problem details: -has a rx for ozempic but has yet to start therapy Status: Acute Plan - Continue Zosyn - PT/OT consult for education and assistance p.r.n. - Social work consult for discharge planning p.r.n. - Prescribed analgesics p.r.n.; would refer patient to be weaned/discontinued from oxycodone use for pain. Acetaminophen and oral NSAIDs should suffice for pain, with oxycodone for breakthrough pain -a few tablets of oxycodone was prescribed for discharge. - DVT prophylaxis: Walking, and SCDs - keep dressing in place. - Anticipation is for discharge to home with family/friends today 05/23/2025 if the patient remains medically stable, pain is controlled, and they are safe with mobilization. patient prefers to be discharged by this evening 05/23/2025; I will try to have patient stay for her next dose of Zosyn at 1800 hours.
[2025-05-23 12:16] LABS: Hematocrit* 39.5 % (33.0-51.0); Hemoglobin* 13.4 gm/dL (12.0-16.0); Mean Corpuscular HGB Conc 34 gm/dL (32-36); Mean Corpuscular Hemoglobin 32 pg (26-34); Mean Corpuscular Volume 94 fL (80-100); Red Blood Count* 4.20 m/uL (4.00-5.20); White Blood Count* 4.33 K/uL (4.50-11.00)
[2025-05-23 12:27] LABS: Slide Review Reflex No
[2025-05-23 12:32] VITALS: BP 168/84; PULSE 72; RESP 16; TEMP 37.2; O2SAT 100
[2025-05-23 12:32] LABS: Albumin* 4.0 g/dL (3.3-5.0); Chloride* 101 mmol/L (96-114)
[2025-05-23 12:33] LABS: Potassium* 3.6 mmol/L (3.6-5.1); Sodium* 133 mmol/L (135-149)
[2025-05-23 12:35] LABS: Blood Urea Nitrogen* 15 mg/dL (5-24); Creatinine* 0.8 mg/dL (0.5-1.5); Est. Creatinine Clearance* 81.38; Estimated Glomerular Filt Rate 91 ml/min
[2025-05-23 12:36] LABS: Alanine Aminotransferase* 57 U/L (4-35); Alkaline Phosphatase* 89 U/L (40-150); Anion Gap 5 mEq/L (7-15); Aspartate Amino Transferase* 61 U/L (12-35); Bilirubin Total* 1.2 mg/dL (0.1-1.5); Calcium* 8.8 mg/dL (8.4-10.6); Carbon Dioxide* 27 mmol/L (20-32); Glucose* 138 mg/dL (60-115); Total Protein* 7.0 g/dL (6.0-8.3)
[2025-05-23 13:03] LABS: Erythrocyte SedimentationRate* 11 mm/hr (2-20)
--- NOTE | 2025-05-23 14:47 | P.DS_ITS ---
DS: Providers Provider Date Seen: 05/23/25 Date of admission: 05/21/25 15:48 Primary care physician: Luis Ambriz MD Admitting Clinician: Cierra Neves MD Attending Physician on discharge: Mukesh Rice MD Date of Discharge: 05/23/25 DS: Diagnosis Discharge Diagnosis (1) Cat bite of right thumb with infection: Status: Acute Problem details: -With concern for possible thumb purulent flexor tenosynovitis, and thumb IP joint intra-articular infection -empiric coverage for aerobic an anaerobic bacteria, including Pasteurella multocida needed. Zosyn 3.375mg Q6H -ortho following for possible I/D, debridement as clinically necessary 05/22/2025: I spoke with Orthopedic surgery team who will be bringing her to the OR today. Continue with broad-spectrum antibiotics. Await intraoperative cultures. 05/23/2025: Patient will need another 2 weeks of oral Augmentin upon discharge from the hospital with follow-up with Orthopedic surgery (2) Flexor tenosynovitis of thumb: Status: Acute Problem details: as above in #1 (3) At increased risk for exposure to rabies virus: Status: Acute Problem details: Rabies series 05/18, 05/21, 05/25, 06/01. (4) Immunosuppressed status: Status: Acute Problem details: - on tofacitinib (Xeljanz) and Methotrexate for uveitis, psoriasis and Hidradenitis suppurativa (5) Psoriasis: Status: Acute Problem details: -most head and scalp affected (6) Controlled type 2 diabetes mellitus: Status: Acute Problem details: A1c 6.2 on 03/16/2025 (7) Sleep apnea: Status: Acute (8) Morbid obesity with BMI of 40.0-44.9, adult: Status: Acute Problem details: -has a rx for ozempic but has yet to start therapy (9) Depression: Status: Acute Problem details: sees psychiatry effexor, buspirone, vyvannse, hydroxyzine (10) Hypertension: Status: Acute Problem details: - stable, continue home med (losartan) (11) Hypercholesteremia: Status: Acute Problem details: -continue statin (12) High risk medication use: Status: Acute Problem details: methotrexate, tofacitinib DS: Summary Hospital Course Hospital Course: Admission history of present illness: ?49 y/o right-handed WF with a past medical history of being immunocompromised (tofacitinib/methotrexate for psoriasis/uveitis), morbidly obese, major depression, PTSD/ADHD, hypertension, hyperlipidemia, type 2 diabetes who presents for the 2nd time after a cat bite that occurred on 05/17/2025, 5 days prior to admission. The cat bit her on her right thumb sinking multiple teeth into both the dorsal and volar aspects of her right thumb. She was seen and evaluated at in our emergency room on 05/18/2025 and started on Augmentin. She has kept the wounds clean and dry. While the wounds themselves seem to be healing the swelling and pain along her right thumb continued to increase. No fevers, chills, vomiting, headache or rigors reported. She comes in ambulatory for further evaluation in our emergency room ?ER COURSE: films, labs, ortho consult. started IV antibiotics. ?CODE STATUS: FULL CODE? 05/22/2025: 49-year-old woman, right-handed. Does not feel her discomfort and inability to move her affected right thumb is any better or worse. Denies fevers, rigors, diaphoresis. Tolerating intervention efforts. NPO since midnight. 05/23/2025: Tolerated surgical procedure with irrigation and debridement. Ready for discharge. Follow up as specified. Answered her questions to her satisfaction. Time Spent with Patient Time attestation: Total time spent providing and/or coordinating discharge services: Exam Narrative: Exam Narrative: Examine her in her hospital room. Appears comfortable. Lungs clear to auscultation. Heart tones with regular rhythm. Abdomen with active bowel sounds, soft. Independent with transfer, station, gait. Right thumb with dressing in place. Right hand less swollen. Moves digits 2, 3, 4, 5 of right hand on encumbered. Full range of motion of right wrist. No erythema on the palmar or dorsal aspect of right hand. Const: Vital Signs, click to edit/add: Vital Signs - 24 hr 05/22/25 15:00 05/22/25 15:00 05/22/25 15:15 Temperature 97.7 F Pulse Rate 76 Pulse Rate [Pulse Oximeter] 75 Respiratory Rate 18 18 18 Blood Pressure 124/88 Blood Pressure [Le ft Arm] 115/84 Pulse Oximetry 99 Oxygen Delivery Me thod Room Air Room Air 05/22/25 15:37 05/22/25 20:15 05/22/25 22:28 Temperature 97.2 F L 98.6 F 98.6 F Pulse Rate 70 Pulse Rate [Pulse Oximeter] 78 77 Respiratory Rate 18 18 18 Blood Pressure 167/108 H Blood Pressure [Le ft Arm] 143/75 H 159/78 H Pulse Oximetry 98 97 97 Oxygen Delivery Me thod Room Air Room Air Room Air 05/23/25 02:35 05/23/25 07:00 05/23/25 12:32 Temperature 98.5 F 98.3 F 99.0 F Pulse Rate Pulse Rate [Pulse Oximeter] 84 78 72 Respiratory Rate 18 16 Blood Pressure Blood Pressure [Le ft Arm] 140/81 H 133/71 168/84 H Pulse Oximetry 96 95 100 Oxygen Delivery Me thod Room Air Room Air Room Air DS: Data Data Completed and Pending Labs on day of discharge: Labs from last 24 hours 05/23/25 12:10 WBC 4.33 L RBC 4.20 Hgb 13.4 Hct 39.5 MCV 94 MCH 32 MCHC 34 Plt Count 250 ESR 11 Sodium 133 L Potassium 3.6 Chloride 101 Carbon Dioxide 27 Anion Gap 5 L BUN 15 Creatinine 0.8 Estimated Creat Clear 81.38 Estimated GFR 91 Glucose 138 H Calcium 8.8 Total Bilirubin 1.2 AST 61 H ALT 57 H Alkaline Phosphatase 89 C-Reactive Protein 1.6 H Total Protein 7.0 Albumin 4.0 Preliminary micro results at discharge 05/22/25 14:15 Aerobic Culture - Preliminary Thumb Right Culture in Progress Anaerobic Culture - Preliminary Culture in Progress 05/22/25 14:15 Aerobic Culture - Preliminary Thumb Right No growth. Anaerobic Culture - Preliminary Culture in Progress Imaging X-ray right thumb: Attestation: I have reviewed the pertinent imaging results. Radiologist's impression: Findings: No acute osseous abnormality. The joint spaces are preserved. No radiopaque foreign body. Discharge Plan Discharge Disposition: Home, Self-Care Date of Admission: 05/21/25 15:48 Attending Provider on Discharge: Mukesh Rice Primary Care Provider: Luis Ambriz Condition: Stable Anticipated Discharge Date/Time: 05/23/25 17:00 Discharge Medications: New sennosides-docusate sodium [Senna-S] 8.6-50 mg tablet 1 - 2 tab-cap PO BID PRN (Reason: constipation) Qty: 20 0RF Rx Instructions: Hold medication if experiencing loose stools. acetaminophen 500 mg capsule 500 - 1,000 mg PO Q6H MDD 4000mg PRNQty: 100 0RF oxycodone 5 mg tablet 2.5 - 5 mg PO Q6-8H MDD 6 PRN (Reason: pain) Qty: 10 0RF Rx Instructions: Take as needed for postop pain: 2.5mg mild pain, 5mg moderate-severe pain; wean as tolerated. amoxicillin-pot clavulanate 875-125 mg tablet 1 tab PO BID Qty: 12 0RF Rx Instructions: Start this Rx once your original Augmentin antibiotic is complete (10 day course starting 05/24/25 a.m.) Continued folic acid 1 mg tablet 1 mg PO DAILY methotrexate sodium 2.5 mg tablet 12.5 mg PO .1 x week Patient Comments: SUNDAY lisdexamfetamine 30 mg capsule 30 mg PO DAILY (DME) lancets [Accu-Chek Softclix Lancets] Misc See Rx Instructions .Route Qty: 200 10RF Rx Instructions: Test 4 times daily. (DME) Accu-Chek Guide test strips Strip See Rx Instructions .ROUTE .MEDSUPPLY Qty: 100 10RF Rx Instructions: Test 4 times per day. venlafaxine 150 mg capsule,extended release 24hr 150 mg PO DAILY buspirone 15 mg tablet 15 mg PO BID Xeljanz XR 11 mg tablet extended release 24 hr 11 mg PO DAILY diclofenac sodium 1 % gel 2 g topical QID PRN (Reason: joint pain) hydrocortisone 2.5 % cream 1 applic topical BID PRN hydroxyzine HCl 25 mg tablet 12.5 - 25 mg PO Q8H PRN (Reason: insomnia) Ozempic 0.25 mg or 0.5 mg (2 mg/3 mL) pen injector 0.5 mg subcut QWEEK Qty: 3 1RF Patient Comments: HASN'T STARTED YET losartan 100 mg tablet 100 mg PO DAILY Qty: 90 4RF rosuvastatin 10 mg tablet 10 mg PO DAILY Qty: 90 4RF amoxicillin-pot clavulanate 875-125 mg tablet 1 tab PO BID Qty: 14 0RF clotrimazole 1 % cream 1 applic topical BID PRN cholecalciferol (vitamin D3) 50 mcg (2,000 unit) capsule 50 mcg PO QDAY Qty: 90 0RF Discharge Orders: Discharge Order (Routine); Ordered 05/23/25 Ordered By: Juan José Santos Consulting provider completed their portion of the discharge: Yes Patient Education: Acetaminophen (By mouth), Amoxicillin/Clavulanate Potassium (By mouth), Oxycodone, Rapid Release (By mouth), Senna (By mouth), Deep Sedation (DC), Incision and Drainage (DC) Additional Instructions: * Keep dressing clean and dry. Cover for showering. If bandage becomes saturated, grossly wet, or grossly dirty, you may remove the bandaging and leave the wound open to air. Nylon sutures will be present; may wash hands with gentle soap and water. Do not soak wound. * Acetaminophen, ibuprofen as needed for discomfort. Ice and elevation as needed for discomfort and swelling. Gentle motion of the thumb is okay. Of course the last joint, the IP joint of the thumb, will be notably stiff for several weeks if not months. OT to follow. Prescribed a few tablets of oxycodone, which may be taken for breakthrough pain. * You will restart Augmentin for antibiotic coverage, starting with a 10 day course morning of 05/24/2025. Complete your previously prescribed prescription (8 tablets remaining) followed by a new prescription (12 tablets) that was written today at discharge (total of 20 tablets). * Okay to return to work on Sunday05/25/2025, as long as there are no oral narcotics in your system. Advised no grasping the right hand. * Phone our orthopedic service ([phone]), which on the weekend will transfer you to a dispatch center, if there are acute concerns such as increasing swelling and notable pain through the thumb, notable drainage of the dressing, fevers, chills, or body aches. Of note, it is not unlikely to have a low-grade fever (100?F or less) postoperatively. * Contact our orthopedic clinic on Sunday05/25/2025 to schedule follow-up end of that week for wound check. Nylon sutures will likely remain in place at that visit, and will be removed at a later visit around 10-14 days postop. 1. Post-op care per orthopedic surgery 2. Follow-up with orthopedic surgery as they specify 3. Continue with follow-up with other clinicians as planned and as needed 4. Complete full course of rabies vaccination Activity Level: No Restrictions Activity Detail: Post-op wound care per orthopedic surgery Discharge Diet: Diabetic Follow Up Appointments: vaccine [Other] Referral Note: Next dose of Rabies vaccine is due 05/25 Please return to the Emergency department to receive this vaccine. Luis Ambriz MD [Primary Care Provider, [facility]] Forms: [employer] Info Instructions Discharge Comments: Patient may discharge today, 05/23/2025, after her next dose of IV Zosyn starting at 16:30 hours. There are additional labs that were ordered routine around noon today, which will unlikely impact today's discharge, and are more for tracking/monitoring for later follow-up. Also, please provide patient with all of her labs, as she has a rheumatology visit on Sunday (05/25/25) for labs and may not need to attend that appointment if the labs from this current hospital visit suffice.
--- NOTE | 2025-05-23 15:50 | PC.NURSE ---
Discharge-- Very pleasant and cooperative, alert and oriented pt. VSS and pt is afebrile. SPO2 maintained >90% on RA. Pain appears well managed with Tylenol and Toradol with an occasional Oxycodone for breakthrough pain. Dressing to right thumb is C/D/I. Pt was up to BR and chair independently and tolerated it well. Discharge education was provided including diagnosis info, symptoms to report, medications and follow up plan. All questions answered and SL was removed with tip intact.
--- NOTE | 2025-05-23 16:48 | PC.NURSE ---
Patient discharged home in stable condition. Ambulated independently off the unit after eating a snack per patient request. No concerns at the time of discharge.
== END 2025-05-23 16:47 | disposition home or self-care (01) | DRG 513 ==
LOC: ED 15:33 → MEDSURG 15:49
PROVIDERS: Orthopaedic Surgery; Physician Assistant Surgical; Admitting Provider Family Medicine; Emergency Provider Student in an Organized Health Care Education/Training Program; PCP Family Medicine; Visit Provider Family Medicine
PROC: 0J9J0ZX Drainage of Right Hand Subcutaneous Tissue and Fascia, Open Approach, Diagnostic (ICD-10-PCS; principal; 2025-05-22 12:35)
DX: M65.141 Other infective (teno)synovitis, right hand (principal); D84.821 Immunodeficiency due to drugs; Z68.41 Body mass index [BMI] 40.0-44.9, adult; H20.9 Unspecified iridocyclitis; S61.051A Open bite of right thumb without damage to nail, initial encounter; B95.7 Other staphylococcus as the cause of diseases classified elsewhere; W55.01XA Bitten by cat, initial encounter; E66.01 Morbid (severe) obesity due to excess calories; Z23 Encounter for immunization; Z29.14 Encounter for prophylactic rabies immune globulin; L40.9 Psoriasis, unspecified; Z79.631 Long term (current) use of antimetabolite agent; Z79.622 Long term (current) use of Janus kinase inhibitor; L73.2 Hidradenitis suppurativa; E11.9 Type 2 diabetes mellitus without complications; I10 Essential (primary) hypertension; F32.A Depression, unspecified; E78.00 Pure hypercholesterolemia, unspecified; G47.30 Sleep apnea, unspecified; Z79.85 Long-term (current) use of injectable non-insulin antidiabetic drugs; F32.9 Major depressive disorder, single episode, unspecified; F43.10 Post-traumatic stress disorder, unspecified; F90.9 Attention-deficit hyperactivity disorder, unspecified type; E78.5 Hyperlipidemia, unspecified
CPT/HCPCS: 36415; 73140; 80048; 80053; 81025; 84702; 84703; 85025; 85027; 85651; 86140; 87070; 87075; 87186; 87205; 99285; 90675; A9270; J0690; J1100; J1885; J2250; J2405; J2543; J2704; J3010

== ENCOUNTER 2025-06-10 11:40 | Outpatient (CLI) | payer OTHER, SELFPAY | END 2025-06-10 11:41 | disposition home or self-care (01) | LOC: NFLDREF 06-15 02:43 | PROVIDERS: PCP Family Medicine; Referring Provider Family Medicine; Visit Provider Physician Assistant Surgical | DX: M54.50 Low back pain, unspecified (principal) | CPT/HCPCS: 87086 ==

== ENCOUNTER 2025-06-11 14:10 | Outpatient (CLI) | payer OTHER, SELFPAY | END 2025-06-11 14:11 | disposition home or self-care (01) | LOC: NFLDREF 06-15 06:30 | PROVIDERS: PCP Family Medicine; Referring Provider Family Medicine; Visit Provider Physician Assistant Surgical | DX: R19.7 Diarrhea, unspecified (principal) | CPT/HCPCS: 87493 ==

== ENCOUNTER 2025-06-24 10:22 | Outpatient (CLI) | payer OTHER, SELFPAY ==
--- NOTE | 2025-06-24 10:15 | CRLHL7_ITS ---
For Patients: As a result of the Century Cures Act, medical imaging exams and procedure reports are released immediately into your electronic medical record. You may view this report before your referring provider. If you have questions, please contact your health care provider. EXAM: MRI OF THE RIGHT SHOULDER, WITHOUT CONTRAST INDICATION: History of rotator cuff tear. No relevant prior surgical history. COMPARISON: Radiographs: 06/08/2025 TECHNIQUE: Axial, sagittal oblique and coronal oblique T1, PD, PD FS and T2-weighted images. 1.5 Sue MR scanner. FINDINGS: ROTATOR CUFF TENDONS AND MUSCLES AND DELTOID: Supraspinatus: High-grade interstitial tearing of the anterior 3rd near the footplate with background moderate tendinosis. No muscle edema or atrophy. Infraspinatus: Intact with mild tendinosis. No muscle edema or atrophy. Teres Minor: Intact. No muscle edema or atrophy. Subscapularis: Low-grade interstitial tearing and mild tendinosis. No muscle edema or atrophy. Other: No muscle atrophy or edema of the deltoid muscle. BICEPS TENDON, LONG HEAD: Extracapsular segment intact. Intracapsular segment irregular likely related to tendinosis. GLENOHUMERAL JOINT: Effusion/Cyst: No effusion or synovitis. Humeral Head Articular Cartilage: Maintained. Glenoid Articular Cartilage: Maintained. Loose Bodies: None. Labrum and capsule: Degenerative changes in the superior labrum without discrete tearing. OSSEOUS STRUCTURES: No acute fracture or pathologic marrow replacement. CORACOACROMIAL ARCH: Acromial Morphology: Type 2 acromial morphology. Acromiohumeral Interval: 7 mm. No abnormal thickening of the coracoacromial ligament. ACROMIOCLAVICULAR JOINT REGION: AC Joint: Mild atrophic degenerative changes and capsular edema. Ligaments: The coracoclavicular ligaments are intact. BURSAE: Subacromial-Subdeltoid: Mild distention with surrounding edema and thickening. Subcoracoid: No significant distention or thickening. OTHER FINDINGS: No space-occupying lesion or abnormality within the suprascapular or spinoglenoid notches or within the quadrilateral space. Prominent borderline enlarged rounded axillary lymph nodes. For example the lymph node on 4:29 measures up to 1.0 cm in short axis diameter. IMPRESSION: 1. Rotator cuff tendinosis with high-grade supraspinatus tearing near the humeral head insertion. No full-thickness or retracted rotator cuff tear. 2. Long head of biceps tendinosis. 3. Mild subacromial subdeltoid bursitis. 4. Prominent nonspecific rounded right axillary lymph nodes. Correlate for recent vaccination. Consider routine mammographic or ultrasound follow-up. Dictated by Jeffrey Deal MD @ 06/25/2025 12:37:58 PM (Electronically Signed)
== END 2025-06-24 10:23 | disposition home or self-care (01) ==
LOC: MRI 10:23
PROVIDERS: PCP Family Medicine; Visit Provider Family Medicine
DX: M25.511 Pain in right shoulder (principal); M75.101 Unspecified rotator cuff tear or rupture of right shoulder, not specified as traumatic; M75.81 Other shoulder lesions, right shoulder; M75.51 Bursitis of right shoulder
CPT/HCPCS: 73221

== ENCOUNTER 2025-07-15 07:42 | Day surgery (SDC) | payer OTHER, SELFPAY ==
[2025-07-15] VITALS (7 sets, daily range): BP systolic 108–127; BP diastolic 66–87; PULSE 78–83; RESP 16; TEMP 36.6–36.8; O2SAT 90–98; BMI 42.4
[2025-07-15] MEDS: SODIUM CHLORIDE 0.9 % (FLUSH) 10 ML SYRINGE IVF (08:54)
[2025-07-15] MEDS: LACTATED RINGERS 1000 ML 1,000 ML 100 ML IV (08:54)
[2025-07-15] MEDS: BUPIVACAINE 0.25% 30 ML 20 ML INJECTION (09:39)
--- NOTE | 2025-07-15 11:35 | P.ANES_ITS ---
Anesthesia Charges Start Date/Time Anesthesia Start Date: 07/15/25 Anesthesia Start Time: 09:27 Stop Date/Time Anesthesia Stop Date: 07/15/25 Anesthesia Stop Time: 11:34 Coding CPT Codes CPT Codes: ANESTH LOWER LEG PROCEDURE - 46652 ([id number]) QK - STOCK HOUSE WORKER 2-4 CNCRNT ANES PROC, QX - SLIVER CHOPPER SVC W/ MD MED DIRECTION, P3 - PATIENT W/SEVERE SYS DISEASE
--- NOTE | 2025-07-15 11:35 | W.ANESCHARGE ---
Anesthesia Charges Start Date/Time Anesthesia Start Date: 07/15/25 Anesthesia Start Time: 09:27 Stop Date/Time Anesthesia Stop Date: 07/15/25 Anesthesia Stop Time: 11:34 Coding CPT Codes CPT Codes: ANESTH LOWER LEG PROCEDURE - 38832 ([id number]) QK - SUPERVISOR BODY ASSEMBLY 2-4 CNCRNT ANES PROC, QX - BEDSPREAD SEAMER SVC W/ MD MED DIRECTION, P3 - PATIENT W/SEVERE SYS DISEASE
--- NOTE | 2025-07-15 11:52 | P.ANES_ITS ---
Anesthesia Charges Start Date/Time Anesthesia Start Date: 07/15/25 Anesthesia Start Time: 09:27 Stop Date/Time Anesthesia Stop Date: 07/15/25 Anesthesia Stop Time: 11:34 Coding CPT Codes CPT Codes: ANESTH LOWER LEG BONE SURG - 90844 ([id number]) QK - AUTOMOTIVE PARTS ADVISOR 2-4 CNCRNT ANES PROC, QX - SUPERVISOR VENEER SVC W/ MD MED DIRECTION, P3 - PATIENT W/SEVERE SYS DISEASE
--- NOTE | 2025-07-15 11:52 | W.ANESCHARGE ---
Anesthesia Charges Start Date/Time Anesthesia Start Date: 07/15/25 Anesthesia Start Time: 09:27 Stop Date/Time Anesthesia Stop Date: 07/15/25 Anesthesia Stop Time: 11:34 Coding CPT Codes CPT Codes: ANESTH LOWER LEG BONE SURG - 17929 ([id number]) QK - CAFE LEAD 2-4 CNCRNT ANES PROC, QX - ASSISTANT PURCHASING MANAGER SVC W/ MD MED DIRECTION, P3 - PATIENT W/SEVERE SYS DISEASE
[2025-07-15] MEDS: ACETAMINOPHEN 325 MG TABLET 650 MG PO (13:15)
--- NOTE | 2025-07-15 13:33 | SUR.PHASEII ---
Reviewed d/c instructions with pt, reviewed boot instructions, pt verbalized understanding. Pt tolerated diet coke. declines food. pt waiting for her to pick her up.
--- NOTE | 2025-07-15 13:36 | SUR.PHASEII ---
pt ambulated to bathroom without difficulty.
--- NOTE | 2025-07-15 13:58 | SUR.PHASEII ---
ambulated with pt to car
--- NOTE | 2025-07-16 08:57 | W.PODPROC_ITS ---
Date of Procedure: 07/15/25 Time Seen by Provider: 08:57 Surgeon: Priscilla Freire DPM Co-Surgeon: Karel Parker DPM Pre-op Diagnosis: 1. Loose body right foot 2. Hallux limitus right 1st MPJ Post-op Diagnosis: 1. Loose body right foot 2. Hallux limitus right 1st MPJ Type of Procedure: 1. Cheilectomy right 1st MPJ 2. Loose body removal right foot Procedure Description: The patient was identified before being brought into the operating room using their name and date of as identifiers. The intended surgical care plan was again reviewed in detail with the patient as well as the rationale for the surgery, the most common risks, complications, and the expected recovery course. The patient was allowed to ask questions which were answered to the best of our ability. The patient ultimately voiced no questions or concerns and agreed to pr oceed forward with the surgery as planned. Under mild sedation, the patient was brought from the pre-operative holding area to the operating room and placed on the operating table in a supine position. A time-out and briefing were performed per operating room protocol to confirm the correct patient, procedure, and location. A well-padded pneumatic tourniquet was then placed on the operative ankle. The operative lower extremity was then scrubbed, prepped, and draped in the normal sterile fashion. The operative lower extremity was then elevated for exsanguination and the tourniquet was inflated to 250 mmHg. We mapped our surgical incision site over the first metatarsophalangeal joint. Incision was carried through skin and deepened through subcutaneous tissue taking care to retract and protect all vital neural and vascular structures. The extensor hallucis longus tendon was identified and freed sharply from the underlying capsular tissues with a longitudinal incision medial to the tendon. Subcutaneous tissue was freed medially from the underlying periosteum and capsule. A longitudinal periosteal incision was made at the dorsal aspect of the first metatarsophalangeal joint. Periosteal and capsulare tissues were sharply dissected free from the underlying first metatarsal head and base of the proximal phalanx.? A sagittal saw was then used to resect the dorsal and medial eminences.? Hand Ronguer was then used to remove bony spurring on the medial, dorsal, and lateral proximal phalanx. Following this, range of motion of the joint was noted to be improved to approximately 65 degrees of total motion. Cartilage was inspected and just medial to the astrid was noted to have cartilage damage, therefore using a 0.45 k wire, fenestration was performed. Attention was then directed to the known loose body to the plantar 1st MPJ. As visualization of the osseous fagment was not possible from a dorsal incision, a a longitudinal plantar incision was made over the first interspace, over the area of maximal tenderness and preoperative imaging findings. Sharp dissection was carried through the subcutaneous tissues with careful attention to protect plantar neurovascular structures. Blunt dissection was used to enter the deep fascial layer and expose the plantar aspect of the first MPJ. Upon exposure, a loose osseous body was identified adjacent to the lateral plantar sesamoid apparatus. The fragment was mobilized and removed in its entirety using a combination of small rongeur and pickups. The surrounding soft tissue was inspected, confirming no additional loose fragments or degenerative debris. The joint and sesamoid apparatus' integrity was maintained were irrigated thoroughly with sterile saline. Copious irrigation of the incision site was carried out. Deep and subcutaneous tissues were reapproximated with a Vicryl in a simple interrupted suture type technique. Skin was reapproximated with a nylon in a horizontal type suture technique. Good rectus alignment of the toe was still noted. A postoperative dressing of xeroform, fluff sponges, ABDs, webril, Kerlix and an bishop bandage was applied to the patient's operative lower extremity. The patient appeared to tolerate both the procedure and anesthesia well. The patient was transferred from the operating room to the post-anesthesia care unit with vital signs stable and vascular status intact to the operative lower extremity. All sponge and instrument counts were correct after the surgery as well as prior to the closure of deep tissue and skin. Anesthesia: MAC and local (30 cc of 0.25% marcaine plain) Hemostasis: ankle (78 minutes of ankle TQ time at 250mmHg) Estimated blood loss (mL): 5 Provider Operated C-arm: 25 images taken on mini c, total of 1min of fluoro time for surgical purposes Implants: none Disposition: same day
== END 2025-07-15 13:58 | disposition home or self-care (01) ==
LOC: OR 07:43
PROVIDERS: PCP Family Medicine; Visit Provider Podiatrist
PROC: (CPT 28289; principal; 2025-07-15 09:00)
DX: M20.5X1 Other deformities of toe(s) (acquired), right foot (principal); M24.074 Loose body in right toe joint(s)
CPT/HCPCS: 28289; 01462; 01480; 73620; 76000; 82962; A9270; J0665; J0690; J1100; J2250; J2405; J2704; J3010; J3490; J7120